=== PATIENT | male | born 1940 | race Caucasian/White ===

== ENCOUNTER → 2017-05-24 11:14 | Outpatient (CLI) | payer MEDICARE, BC, SELFPAY ==
--- NOTE | 2017-05-24 11:24 | US_ITS ---
STUDY: SUPERFICIAL ULTRASOUND - RIGHT ABDOMINAL WALL REASON FOR EXAM: Male, 76 years old. Pain, bruising TECHNIQUE: A superficial ultrasound was performed with real-time and static gentile-scale imaging. COMPARISON: None. FINDINGS: There are no cystic or solid masses seen in the area of concern. There are no fluid collections. US/Abdomen Limited IMPRESSION: Negative study. Electronically Signed: Jo Ann Wolfe MD at 16:06 EST Tel Direct: [phone], Service support ,
== END ==
PROVIDERS: Family Provider Family Medicine Geriatric Medicine; PCP Family Medicine Geriatric Medicine; Visit Provider Family Medicine Geriatric Medicine
DX: R10.9 Unspecified abdominal pain (principal)
CPT/HCPCS: 76705

== ENCOUNTER 2017-05-27 00:12 | Emergency (ER) | payer MEDICARE, BC, SELFPAY ==
[2017-05-27 00:13] VITALS: BP 205/112; PULSE 65; RESP 22; TEMP 36.6; O2SAT 96; BMI 48.4
--- NOTE | 2017-05-27 01:21 | ED.VISSUMM ---
- ER Visit Summary Date of Service: 05/27/17 Chief Complaint: [] Edema of the left elbow History of Present Illness: The patient is a 76 M [] planing of seepage/swelling of the left elbow without obvious injury. Patient has a significant history of congestive heart failure and renal failure. His son at the bedside reports he had a left upper extremity fistula placed May 11 to initiate dialysis. He has not yet had his first dialysis. Patient denies pain with range of motion of the elbow. Denies skin breakdown or injury. Denies increase in physical activity. Does report just a small area of clear serous drainage. Denies fevers. No other complaints at this time. History is limited by the patient's dementia. Son reports that the patient is not compliant taking his Lasix. Physical Examination: [] Elderly morbidly obese male in no acute distress. Afebrile, blood pressure elevated at 205/113. Remainder of vitals are within normal limits. Examination of the elbow shows clear serous drainage from a small area at the distal elbow. No signs of erythema, infection, cellulitis. There is mild swelling in comparison to the opposite elbow. There is no pain with range of motion testing. Lower extremity exam shows significant 4+ pitting edema symmetric. Test Results: [] CBC normal. Electrolytes normal with exception of a BUN/creatinine of 33 and 3.02, respectively. This is consistent with the patient's history of end-stage renal disease. ESR: 31. 3 view left elbow x-ray negative. Emergency Department Course and Treatment: [] In light of the patient's negative lab workup and negative x-rays and the fact that the patient is already on a low-dose antibiotic (Keflex), do not feel any further intervention is warranted. I inserted the nurse to provide a clean sterile dressing and I encouraged the patient to take his Lasix as prescribed. I encourage PCP follow-up within 3 days. Return if symptoms worsen or fever or redness develops. Treatment Plan: [] Follow-up with PCP. Disposition: [] Discharge, stable. Impression: [] Left elbow serous drainage History of end-stage renal disease History of congestive heart failure This note was generated with valuklikation software. It may contain incorrect words, spelling, and punctuation that were not noted in review of the chart prior to signing ED Disposition - Plan for ED Patient: Chief Complaint: Edema Referrals: Justice Valenzuela Chi, MD [Primary Care Provider] -
--- NOTE | 2017-05-27 01:24 | ED.DCSUM_ITS ---
- ER Visit Summary Date of Service: 05/27/17 Chief Complaint: [] Edema of the left elbow History of Present Illness: The patient is a 76 M [] planing of seepage/ swelling of the left elbow without obvious injury. Patient has a significant history of congestive heart failure and renal failure. His son at the bedside reports he had a left upper extremity fistula placed May 11 to initiate dialysis. He has not yet had his first dialysis. Patient denies pain with range of motion of the elbow. Denies skin breakdown or injury. Denies increase in physical activity. Does report just a small area of clear serous drainage. Denies fevers. No other complaints at this time. History is limited by the patient's dementia. Son reports that the patient is not compliant taking his Lasix. Physical Examination: [] Elderly morbidly obese male in no acute distress. Afebrile, blood pressure elevated at 205/113. Remainder of vitals are within normal limits. Examination of the elbow shows clear serous drainage from a small area at the distal elbow. No signs of erythema, infection, cellulitis. There is mild swelling in comparison to the opposite elbow. There is no pain with range of motion testing. Lower extremity exam shows significant 4+ pitting edema symmetric. Test Results: [] CBC normal. Electrolytes normal with exception of a BUN/ creatinine of 33 and 3.02, respectively. This is consistent with the patient's history of end-stage renal disease. ESR: 31. 3 view left elbow x-ray negative. Emergency Department Course and Treatment: [] In light of the patient's negative lab workup and negative x-rays and the fact that the patient is already on a low-dose antibiotic (Keflex), do not feel any further intervention is warranted. I inserted the nurse to provide a clean sterile dressing and I encouraged the patient to take his Lasix as prescribed. I encourage PCP follow-up within 3 days. Return if symptoms worsen or fever or redness develops. Treatment Plan: [] Follow-up with PCP. Disposition: [] Discharge, stable. Impression: [] Left elbow serous drainage History of end-stage renal disease History of congestive heart failure This note was generated with Searcheezeation software. It may contain incorrect words, spelling, and punctuation that were not noted in review of the chart prior to signing ED Disposition - Plan for ED Patient: Chief Complaint: Edema Referrals: Justice Valenzuela Chi, MD [Primary Care Provider] -
--- NOTE | 2017-05-27 01:28 | RAD_ITS ---
STUDY: X-RAY - LEFT ELBOW REASON FOR EXAM: Male, 76 years old. Fall TECHNIQUE: 3 view(s) of the elbow. COMPARISON: None. FINDINGS: Radial head osteophyte. Ulnotrochlear osteoarthritis. Soft tissue swelling. Surgical clips. Calcific tendinitis involving the common flexor tendon. RAD/Elbow min 3 Views IMPRESSION: No acute osseous injury is evident. Electronically Signed: Gerber Dietz MD at 2:03 EST Tel , Service support ,
[2017-05-27 01:36] LABS: Erythrocyte Sedimentation Rate 31 mm/hr (0-20)
[2017-05-27 01:38] LABS: Absolute Neutrophil Count 5.2 X10^3/uL (2.0-7.7); Basophil# 0.02 X10^3/uL; Basophil% 0.3 % (0-1); Eosinophil# 0.15 X10^3/uL; Eosinophils% 2.1 % (0-5); Hematocrit 33.1 % (40-54); Hemoglobin 10.7 g/dl (13.0-16.5); Lymphocyte % 15.4 % (19-41); Mean Corp Hgb Conc 32.3 g/gl (32-36); Mean Corpuscular Hgb 28.7 pg (27.0-32.0); Mean Corpuscular Volume 88.7 fL (80-94); Mean Platelet Vol. 10.4 fl (6.2-12.0); Monocyte# 0.69 X10^3/uL; Monocyte% 9.7 % (0-10); Neutrophil # 5.16 X10^3/uL (2.7-7.7); Neutrophil % 72.4 % (47-70); Platelet Count 241 K/mm3 (150-450); RBC Distribution Width CV 15.2 % (11.6-14.6); RBC Distribution Width SD 49.3 fl (35.1-43.9); Red Blood Count 3.73 M/mm3 (4.6-6.2); White Blood Count 7.1 K/mm3 (4.4-11.0)
[2017-05-27 01:39] LABS: POSITIVE COUNT NO; POSITIVE DIFFERENTIAL NO; POSITIVE MORPHOLOGY NO
[2017-05-27 01:41] LABS: Anion Gap 10 (5-15); BUN 33 mg/dL (7-18); BUN/Creat Ratio 10.9 RATIO (10-20); Chloride 111 mmol/L (98-107); Creatinine, Serum 3.02 mg/dL (0.70-1.30); EST Glomerular Filtration Rate 21 mL/min (>60); Est Glom Filt Rate - Afr Amer 26 mL/min (>60); Estimated Creatinine Clearance 18.19 ml/min; Glucose 126 mg/dL (70-110); Potassium 3.8 mmol/L (3.5-5.1); Sodium Level 144 mmol/L (136-145)
[2017-05-27 02:11] VITALS: PULSE 67; RESP 20; O2SAT 95
[2017-05-27 02:17] VITALS: BP 187/94; O2SAT 95
--- NOTE | 2017-05-27 02:36 | ED.DEP ---
ED Disposition - Plan for ED Patient: Disposition: Home or Assisted Living Chief Complaint: Edema Diagnosis: Chronic renal failure, stage 3 (moderate) Instructions: ED CHF General, Wound Care Referrals: Justice Valenzuela Chi, MD [Primary Care Provider] - Additional Instructions: See your PCP within 3 days.
[2017-05-27 03:25] VITALS: BP 206/95
== END 2017-05-27 03:26 | disposition home or self-care (01) ==
PROVIDERS: Emergency Provider Emergency Medicine; Family Provider Family Medicine Geriatric Medicine; PCP Family Medicine Geriatric Medicine
DX: M25.422 Effusion, left elbow (principal); E66.01 Morbid (severe) obesity due to excess calories; I13.2 Hypertensive heart and chronic kidney disease with heart failure and with stage 5 chronic kidney disease, or end stage renal disease; N18.6 End stage renal disease; I25.10 Atherosclerotic heart disease of native coronary artery without angina pectoris; M10.9 Gout, unspecified; I50.9 Heart failure, unspecified
CPT/HCPCS: 73080; 80048; 85025; 85652; 99282; A4216

== ENCOUNTER → 2017-05-31 09:07 | Outpatient (CLI) | payer MEDICARE, BC, SELFPAY ==
[2017-05-31 13:23] LABS: Absolute Lymphocyte Count 1.39 X10^3/ul (0.83-4.51); Basophil# 0.02 X10^3/uL; Basophil% 0.2 % (0-1); Eosinophil# 0.22 X10^3/uL; Eosinophils% 2.3 % (0-5); Hematocrit 36.2 % (40-54); Hemoglobin 11.6 g/dl (13.0-16.5); Lymphocyte # 1.39 X10^3/ul (4.0); Lymphocyte % 14.6 % (19-41); Mean Corpuscular Hgb 28.6 pg (27.0-32.0); Mean Corpuscular Volume 89.2 fL (80-94); Mean Platelet Vol. 10.5 fl (6.2-12.0); Monocyte# 0.86 X10^3/uL; Neutrophil # 7.03 X10^3/uL (2.7-7.7); Neutrophil % 73.7 % (47-70); Platelet Count 280 K/mm3 (150-450); RBC Distribution Width CV 14.9 % (11.6-14.6); RBC Distribution Width SD 48.8 fl (35.1-43.9); Red Blood Count 4.06 M/mm3 (4.6-6.2); White Blood Count 9.5 K/mm3 (4.4-11.0)
[2017-05-31 13:27] LABS: POSITIVE COUNT NO; POSITIVE DIFFERENTIAL NO; POSITIVE MORPHOLOGY NO
[2017-05-31 13:34] LABS: Anion Gap 11 (5-15); BUN 38 mg/dL (7-18); BUN/Creat Ratio 12.8 RATIO (10-20); Calcium,Total 8.1 mg/dL (8.5-10.1); Chloride 108 mmol/L (98-107); Creatinine, Serum 2.98 mg/dL (0.70-1.30); EST Glomerular Filtration Rate 22 mL/min (>60); Est Glom Filt Rate - Afr Amer 26 mL/min (>60); Glucose 110 mg/dL (70-110); Potassium 3.9 mmol/L (3.5-5.1); Sodium Level 143 mmol/L (136-145)
[2017-05-31 13:42] LABS: BNP,B-Type NATRIURETIC PEPTIDE 301.4 pg/mL (0-100)
== END ==
PROVIDERS: Family Provider Family Medicine Geriatric Medicine; PCP Family Medicine Geriatric Medicine; Visit Provider Family Medicine Geriatric Medicine
DX: N18.3 Chronic kidney disease, stage 3 (moderate) (principal); R06.02 Shortness of breath; I50.9 Heart failure, unspecified
CPT/HCPCS: 36415; 80048; 83880; 85025

== ENCOUNTER → 2017-05-31 13:11 | Outpatient (CLI) | payer MEDICARE, BC, SELFPAY ==
--- NOTE | 2017-05-31 13:15 | VDLE_ITS ---
Reason For Study: edema RIGHT LEFT GSV is normal. GSV is normal. CFV is compressible, spontaneous, phasic, CFV is compressible, spontaneous, phasic, competent and demonstrates normal competent, and demonstrates normal augmentation. augmentation. FV is compressible, spontaneous, phasic, FV is compressible, spontaneous, phasic, competent and demonstrates normal competent and demonstrates normal augmentation. augmentation. POP V is compressible, spontaneous, phasic, POP V is compressible, spontaneous, phasic, competent and demonstrates normal competent and demonstrates normal augmentation. augmentation. T/P Trunk is compressible. T/P Trunk is compressible. PTV is compressible. PTV is compressible. RT PerV is compressible. LT PerV is compressible. Procedure Exam performed in department. The exam was of fair technical quality due to edema. Limited views of calf veins due to edema. A preliminary report was called and/or faxed to Dr. Valenzuela. Interpretation Summary Deep veins of the lower extremities are bilaterally patent and compressible segmentally. There is no evidence of deep vein thrombosis on either side. Valvular competence appears intact within the proximal deep venous systems bilaterally. The greater saphenous veins appear bilaterally patent and compressible segmentally. Ordering Physician: Justice Valenzuela Performed By: Obi Valentin RVT
== END ==
PROVIDERS: Family Provider Family Medicine Geriatric Medicine; PCP Family Medicine Geriatric Medicine; Visit Provider Family Medicine Geriatric Medicine
DX: R60.0 Localized edema (principal)
CPT/HCPCS: 36415; 80048; 83880; 85025; 93970

== ENCOUNTER → 2017-06-07 17:00 | Outpatient (CLI) | payer MEDICARE, BC, SELFPAY ==
--- NOTE | 2017-06-07 17:16 | CT_ITS ---
STUDY: CT BRAIN WITHOUT CONTRAST REASON FOR EXAM: Male, 76 years old. Delirium. Confusion. RADIATION DOSAGE (If Supplied By Facility): CTDIvol = ( 60.81 ) mGy, DLP = ( 1135.50 ) mGycm TECHNIQUE: Transaxial CT imaging of the brain was performed without administration of intravenous contrast material. Individualized dose optimization techniques were used for this CT. COMPARISON: None. FINDINGS: Normal soft tissue structures. Normal calvarium. There is disproportionate enlargement of the lateral and third ventricles, as compared to the extra-axial spaces. The findings suggest normal pressure hydrocephalus (NPH). There are areas of decreased attenuation within the white matter tracts of the supratentorial brain, consistent with microvascular disease changes. Normal basal ganglia and thalami. Normal brainstem. Normal cerebellum. There is no intracranial hemorrhage. There are no findings of an acute ischemic infarction. Normal visualized paranasal sinuses. CT/Brain/Head without Contrast IMPRESSION: Chronic involutional changes without evidence of acute intracranial or calvarial abnormality. Electronically Signed: Danie Vergara DO at 17:42 EST Tel [phone], Service support ,
--- NOTE | 2017-06-07 17:20 | RAD_ITS ---
STUDY: X-RAY - ABDOMEN/PELVIS REASON FOR EXAM: Male, 76 years old. Diarrhea TECHNIQUE: For AP images of the abdomen were obtained. COMPARISON: None. FINDINGS: Normal visualized lung bases. There is an unremarkable bowel gas pattern. There is no demonstrated free abdominal air. The visualized liver, spleen and kidneys are grossly normal in size and morphology. Normal soft tissue structures. There are diffuse degenerative changes of the visualized lumbar spine. There are pedicle screws noted within the lower lumbar spine. Bilateral hip arthroplasties are in place. RAD/Abd Inc Decub and/or Erect IMPRESSION: Nonspecific bowel gas pattern. Electronically Signed: Jane Strickland MD at 18:12 EST Tel , Service support ,
--- NOTE | 2017-06-07 17:30 | RAD_ITS ---
STUDY: X-RAY CHEST REASON FOR EXAM: Male, 76 years old. Delirium TECHNIQUE: PA and lateral views of the chest. COMPARISON: November 29, 2016. FINDINGS: There are ill-defined opacities within the mid and lower left lung and right lung base. There is perihilar fullness associated with indistinct pulmonary bronchovasculature. Normal size heart. There is atherosclerotic calcification of the aortic arch with tortuosity. There are diffuse degenerative changes of the visualized thoracic spine. Normal visualized ribs, clavicles, and shoulders. There is no demonstrated abnormality of the visualized soft tissue structures of the upper abdomen. RAD/Chest PA and Lateral IMPRESSION: Bilateral ill-defined opacities may reflect some combination of edema, pneumonia and/or atelectasis. Electronically Signed: Jane Strickland MD at 18:17 EST Tel , Service support ,
[2017-06-07 18:13] LABS: Absolute Lymphocyte Count 1.04 X10^3/ul (0.83-4.51); Absolute Neutrophil Count 6.8 X10^3/uL (2.0-7.7); Basophil# 0.02 X10^3/uL; Basophil% 0.2 % (0-1); Eosinophil# 0.16 X10^3/uL; Eosinophils% 1.8 % (0-5); Hematocrit 34.1 % (40-54); Hemoglobin 10.7 g/dl (13.0-16.5); Lymphocyte # 1.04 X10^3/ul (4.0); Lymphocyte % 11.8 % (19-41); Mean Corp Hgb Conc 31.4 g/gl (32-36); Mean Corpuscular Hgb 28.2 pg (27.0-32.0); Mean Corpuscular Volume 89.7 fL (80-94); Mean Platelet Vol. 10.2 fl (6.2-12.0); Monocyte# 0.81 X10^3/uL; Monocyte% 9.2 % (0-10); Neutrophil # 6.81 X10^3/uL (2.7-7.7); Neutrophil % 76.9 % (47-70); Platelet Count 281 K/mm3 (150-450); RBC Distribution Width CV 14.3 % (11.6-14.6); White Blood Count 8.9 K/mm3 (4.4-11.0)
[2017-06-07 18:17] LABS: POSITIVE COUNT NO; POSITIVE DIFFERENTIAL NO; POSITIVE MORPHOLOGY NO
[2017-06-07 18:40] LABS: D-Dimer Quantitative (DVT/PE) 1.38 FEU/ug/m (0.27-0.49)
[2017-06-07 19:12] LABS: ALB/GLOB Ratio 0.8 RATIO (0.9-2.4); AST(SGOT) 12 U/L (15-37); Alanine Aminotransfer ALT/SGPT 15 U/L (16-61); Albumin, Serum 2.9 g/dL (3.2-5.0); Alkaline Phosphatase 68 U/L (45-117); Anion Gap 9 (5-15); BUN 39 mg/dL (7-18); BUN/Creat Ratio 11.4 RATIO (10-20); Calcium,Total 8.3 mg/dL (8.5-10.1); Chloride 103 mmol/L (98-107); Creatinine, Serum 3.42 mg/dL (0.70-1.30); EST Glomerular Filtration Rate 19 mL/min (>60); Est Glom Filt Rate - Afr Amer 22 mL/min (>60); Globulin 3.5 g/dL (2.2-4.2); Glucose 141 mg/dL (74-106); Magnesium 2.4 mg/dL (1.6-2.6); Phosphorus 3.8 mg/dL (2.5-4.9); Potassium 3.9 mmol/L (3.5-5.1); Protein, Total 6.4 g/dL (6.4-8.2); Sodium Level 143 mmol/L (136-145); Thyroid Stim Hormone (TSH) 2.14 uIU/mL (0.358-3.74)
[2017-06-07 20:26] LABS: BNP,B-Type NATRIURETIC PEPTIDE 254.3 pg/mL (0-100)
== END ==
PROVIDERS: Family Provider Family Medicine Geriatric Medicine; PCP Family Medicine Geriatric Medicine; Visit Provider Family Medicine Geriatric Medicine
DX: F05 Delirium due to known physiological condition (principal); R19.7 Diarrhea, unspecified; R06.02 Shortness of breath; N39.0 Urinary tract infection, site not specified
CPT/HCPCS: 70450; 71046; 74019; 80053; 83735; 83880; 84100; 84443; 85025; 85379; 87077; 87086; 87088; 87186

== ENCOUNTER → 2017-06-11 16:22 | Outpatient (CLI) | payer MEDICARE, BC, SELFPAY ==
[2017-06-11 17:31] LABS: Absolute Lymphocyte Count 1.36 X10^3/ul (0.83-4.51); Absolute Neutrophil Count 3.9 X10^3/uL (2.0-7.7); Basophil# 0.02 X10^3/uL; Basophil% 0.3 % (0-1); Eosinophil# 0.05 X10^3/uL; Eosinophils% 0.8 % (0-5); Hematocrit 35.5 % (40-54); Hemoglobin 11.4 g/dl (13.0-16.5); Lymphocyte # 1.36 X10^3/ul (4.0); Lymphocyte % 22.6 % (19-41); Mean Corp Hgb Conc 32.1 g/gl (32-36); Mean Corpuscular Hgb 28.3 pg (27.0-32.0); Mean Corpuscular Volume 88.1 fL (80-94); Mean Platelet Vol. 10.7 fl (6.2-12.0); Monocyte% 11.6 % (0-10); Neutrophil # 3.87 X10^3/uL (2.7-7.7); Neutrophil % 64.4 % (47-70); Platelet Count 322 K/mm3 (150-450); RBC Distribution Width SD 44.5 fl (35.1-43.9); Red Blood Count 4.03 M/mm3 (4.6-6.2)
[2017-06-11 17:39] LABS: POSITIVE COUNT NO; POSITIVE DIFFERENTIAL NO; POSITIVE MORPHOLOGY NO
[2017-06-11 18:29] LABS: ALB/GLOB Ratio 0.8 RATIO (0.9-2.4); AST(SGOT) 17 U/L (15-37); Alanine Aminotransfer ALT/SGPT 22 U/L (16-61); Alkaline Phosphatase 77 U/L (45-117); Anion Gap 10 (5-15); BUN 35 mg/dL (7-18); BUN/Creat Ratio 11.4 RATIO (10-20); Chloride 106 mmol/L (98-107); Creatinine, Serum 3.08 mg/dL (0.70-1.30); EST Glomerular Filtration Rate 21 mL/min (>60); Est Glom Filt Rate - Afr Amer 25 mL/min (>60); Globulin 3.7 g/dL (2.2-4.2); Glucose 92 mg/dL (74-106); Potassium 3.2 mmol/L (3.5-5.1); Protein, Total 6.7 g/dL (6.4-8.2); Sodium Level 143 mmol/L (136-145); Thyroid Stim Hormone (TSH) 1.63 uIU/mL (0.358-3.74); Uric Acid 3.7 mg/dL (3.5-7.2)
== END ==
PROVIDERS: Family Provider Family Medicine Geriatric Medicine; PCP Family Medicine Geriatric Medicine; Visit Provider Family Medicine Geriatric Medicine
DX: I10 Essential (primary) hypertension (principal); M10.9 Gout, unspecified
CPT/HCPCS: 36415; 80053; 84443; 84550; 85025

== ENCOUNTER → 2017-06-14 11:59 | Outpatient (CLI) | payer MEDICARE, BC, SELFPAY | PROVIDERS: Family Provider Family Medicine Geriatric Medicine; PCP Family Medicine Geriatric Medicine; Visit Provider Family Medicine Geriatric Medicine | DX: R69 Illness, unspecified (principal) | CPT/HCPCS: 87633 ==

== ENCOUNTER → 2017-06-18 10:33 | Outpatient (CLI) | payer MEDICARE, BC, SELFPAY ==
[2017-06-18 11:51] LABS: Anion Gap 7 (5-15); BUN 33 mg/dL (7-18); BUN/Creat Ratio 11.4 RATIO (10-20); Calcium,Total 7.7 mg/dL (8.5-10.1); Chloride 105 mmol/L (98-107); EST Glomerular Filtration Rate 22 mL/min (>60); Est Glom Filt Rate - Afr Amer 27 mL/min (>60); Glucose 145 mg/dL (74-106); Potassium 3.5 mmol/L (3.5-5.1); Sodium Level 142 mmol/L (136-145)
== END ==
PROVIDERS: Family Provider Family Medicine Geriatric Medicine; PCP Family Medicine Geriatric Medicine; Visit Provider Family Medicine Geriatric Medicine
DX: N17.9 Acute kidney failure, unspecified (principal)
CPT/HCPCS: 36415; 80048

== ENCOUNTER → 2017-06-25 10:31 | Outpatient (CLI) | payer MEDICARE, BC, SELFPAY ==
--- NOTE | 2017-06-25 10:37 | RAD_ITS ---
STUDY: X-RAY - UNILATERAL RIBS ( RIGHT ) WITH CHEST REASON FOR EXAM: Male, 76 years old. Fall. Pain. TECHNIQUE - RIBS: 6 view(s) of the ribs. TECHNIQUE - CHEST: Single frontal view of the chest. COMPARISON: 06/07/2017, 07/14/16. FINDINGS - RIBS: Normal visualized ribs without a demonstrated fracture. FINDINGS - CHEST: Normal lung volumes. Stable nodular areas of scarring and/or calcified granulomas in both upper lobes. No infiltrates. No effusions. Normal size heart. Normal mediastinum and iftikhar. Normal visualized pulmonary arteries. There is atherosclerotic tortuosity of the aortic arch and descending thoracic aorta. There are diffuse degenerative changes of the visualized thoracic spine. Normal visualized ribs, clavicles, and shoulders. There is no demonstrated abnormality of the visualized soft tissue structures of the upper abdomen. RAD/Ribs Uni Min 3V w/PA Chest IMPRESSION: RIBS: Normal x-ray examination of the ribs. CHEST: No acute chest disease. Electronically Signed: Seng Verde MD at 23:55 EST , Service support ,
== END ==
PROVIDERS: Family Provider Family Medicine Geriatric Medicine; PCP Family Medicine Geriatric Medicine; Visit Provider Family Medicine Geriatric Medicine
DX: R07.89 Other chest pain (principal)
CPT/HCPCS: 71101

== ENCOUNTER → 2017-06-28 16:19 | Outpatient (CLI) | payer MEDICARE, BC, SELFPAY ==
[2017-06-28 17:14] LABS: Absolute Neutrophil Count 8.1 X10^3/uL (2.0-7.7); Basophil# 0.02 X10^3/uL; Basophil% 0.2 % (0-1); Eosinophil# 0.22 X10^3/uL; Eosinophils% 2.1 % (0-5); Hematocrit 35.4 % (40-54); Hemoglobin 11.5 g/dl (13.0-16.5); Lymphocyte % 13.2 % (19-41); Mean Corp Hgb Conc 32.5 g/gl (32-36); Mean Corpuscular Hgb 29.1 pg (27.0-32.0); Mean Corpuscular Volume 89.6 fL (80-94); Mean Platelet Vol. 10.9 fl (6.2-12.0); Monocyte# 0.87 X10^3/uL; Monocyte% 8.2 % (0-10); Neutrophil # 8.09 X10^3/uL (2.7-7.7); Neutrophil % 76.1 % (47-70); Platelet Count 241 K/mm3 (150-450); RBC Distribution Width CV 14.5 % (11.6-14.6); RBC Distribution Width SD 46.2 fl (35.1-43.9); Red Blood Count 3.95 M/mm3 (4.6-6.2); White Blood Count 10.6 K/mm3 (4.4-11.0)
[2017-06-28 17:15] LABS: POSITIVE COUNT NO; POSITIVE DIFFERENTIAL NO; POSITIVE MORPHOLOGY NO
--- NOTE | 2017-06-28 17:20 | RAD_ITS ---
STUDY: X-RAY - THORACIC SPINE REASON FOR EXAM: Male, 76 years old. Mid back pain. TECHNIQUE: 3 view(s) of the thoracic spine were obtained. COMPARISON: Chest, June 07, 2017. FINDINGS: Normal kyphosis of the thoracic spine. There is no substantial scoliosis. There is demineralization of the thoracic spine with endplate spondylosis. There is multilevel disc space narrowing of the thoracic spine. There is no evidence of acute fracture or loss of vertebral axial height. The soft tissue structures are unremarkable. RAD/Thoracic Spine 3 Views IMPRESSION: Mild degenerative changes of the thoracic spine without acute abnormality or interval change. Electronically Signed: Danie Vergara DO at 18:14 EST Tel [phone], Service support ,
[2017-06-28 17:53] LABS: Anion Gap 9 (5-15); BUN 33 mg/dL (7-18); BUN/Creat Ratio 11.1 RATIO (10-20); Calcium,Total 8.2 mg/dL (8.5-10.1); Chloride 108 mmol/L (98-107); Creatinine, Serum 2.97 mg/dL (0.70-1.30); EST Glomerular Filtration Rate 22 mL/min (>60); Est Glom Filt Rate - Afr Amer 26 mL/min (>60); Glucose 107 mg/dL (74-106); Potassium 4.9 mmol/L (3.5-5.1); Sodium Level 141 mmol/L (136-145)
== END ==
PROVIDERS: Family Provider Family Medicine Geriatric Medicine; PCP Family Medicine Geriatric Medicine; Visit Provider Family Medicine Geriatric Medicine
DX: N18.4 Chronic kidney disease, stage 4 (severe) (principal); R19.7 Diarrhea, unspecified; M54.6 Pain in thoracic spine
CPT/HCPCS: 36415; 72072; 80048; 85025

== ENCOUNTER → 2017-06-29 10:14 | Outpatient (CLI) | payer MEDICARE, BC, SELFPAY ==
--- NOTE | 2017-06-29 10:25 | VDUE_ITS ---
Reason For Study: EDEMA Right Proximal Left Proximal Right jugular vein is spontaneous, widely Left jugular vein is spontaneous, widely patent, phasic, with no intraluminal patent, phasic, with no intraluminal echogenicity noted. echogenicity noted. Right subclavian vein is spontaneous, widely Left subclavian vein is spontaneous, widely patent, phasic, with no intraluminal patent, phasic, with no intraluminal echogenicity noted. echogenicity noted. Right Lower Arm Left Arm Right radial vein is compressible. Left axillary vein is spontaneous, patent, Right ulnar vein is compressible. phasic, competent, compressible and Right Arm demonstrates augmentation. Right axillary vein is spontaneous, patent, Left brachial vein is compressible. phasic, competent, compressible and Left cephalic vein is compressible. demonstrates augmentation. Left basilic vein is compressible. Right brachial vein is compressible. Left Lower Arm Right cephalic vein is compressible. Left radial vein is compressible. Right basilic vein is compressible. Left ulnar vein is compressible. < Interpretation Summary Deep veins of the upper extremities are bilaterally patent and compressible segmentally. There is no evidence of deep vein thrombosis on either side. The superficial veins of the upper extremities, the basilic and cephalic veins, are patent and compressible bilaterally. There is no evidence of upper extremity superficial thrombophlebitis on either side involving the veins imaged. Ordering Physician: Justice Valenzuela Referring Physician: Justice Valenzuela Chi Performed By: Poly Mcdonough, MAYELA, RVT
== END ==
PROVIDERS: Family Provider Family Medicine Geriatric Medicine; PCP Family Medicine Geriatric Medicine; Visit Provider Family Medicine Geriatric Medicine
DX: R60.0 Localized edema (principal)
CPT/HCPCS: 93970

== ENCOUNTER → 2017-07-24 14:08 | Outpatient (CLI) | payer MEDICARE, BC, SELFPAY | PROVIDERS: Family Provider Family Medicine Geriatric Medicine; PCP Family Medicine Geriatric Medicine; Visit Provider Family Medicine Geriatric Medicine | DX: R68.83 Chills (without fever) (principal) | CPT/HCPCS: 87633 ==

== ENCOUNTER → 2017-07-27 09:35 | Day surgery (SDC) | payer MEDICARE, BC, SELFPAY ==
[2017-07-16 14:42] LABS: Hematocrit 34.8 % (40-54); Mean Corp Hgb Conc 31.6 g/gl (32-36); Mean Corpuscular Hgb 28.4 pg (27.0-32.0); Mean Corpuscular Volume 89.7 fL (80-94); Mean Platelet Vol. 10.7 fl (6.2-12.0); Platelet Count 234 K/mm3 (150-450); RBC Distribution Width CV 14.3 % (11.6-14.6); RBC Distribution Width SD 46.4 fl (35.1-43.9); Red Blood Count 3.88 M/mm3 (4.6-6.2); White Blood Count 7.7 K/mm3 (4.4-11.0)
[2017-07-16 14:43] LABS: Scan Indicated on CBC? Y/N NO
[2017-07-16 15:03] LABS: Anion Gap 8 (5-15); BUN 40 mg/dL (7-18); BUN/Creat Ratio 10.8 RATIO (10-20); Calcium,Total 7.9 mg/dL (8.5-10.1); Chloride 104 mmol/L (98-107); EST Glomerular Filtration Rate 17 mL/min (>60); Est Glom Filt Rate - Afr Amer 21 mL/min (>60); Glucose 155 mg/dL (74-106); Potassium 3.2 mmol/L (3.5-5.1); Sodium Level 142 mmol/L (136-145)
[2017-07-26 11:18] VITALS: BMI 47.0
--- NOTE | 2017-07-27 12:14 | OP.PCM_ITS ---
Problem List (1) 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 76-year-old gentleman was taken to the special procedures lab. Was placed on the table. The left upper extremity sterilely prepped and draped. He received 0.5 mg Versed as sedation. He has some narcotic allergy. Under ultrasound guidance 2% lidocaine was instilled in the distal upper arm and then using a micropuncture needle was able to get retrograde access to the left upper arm cephalic vein. I was able to advance the micropuncture wire then up 6 Argentine short sheath dilator. Using then a 4 Argentine angled glide cath and an 035 angled Glidewire and gained access to the radial artery proximal to the anastomosis. I advanced a 4 Argentine angled glide cath. Using carbon dioxide obtained a fistulogram of the forearm. This demonstrated an area of stenosis within the first 4 cm of the anastomosis and then also closer to the antecubital space. I placed a 5 x 80 mm ever cross balloon and perform balloon angioplasty of the arterial anastomosis and the entire length of the fistula. Inflation times for 2 minutes for 18 moises of pressure. Subsequently I removed the balloon reinserted the 4 Argentine angled glide cath reobtained official gram of the forearm now demonstrating improved diameter and flow. I completed carbon dioxide images of the left upper arm and chest area. The sheath was removed. U suture of 4-0 nylon was placed. Hemostasis nicely intact. There was a good pulse, thrill, bruit at the completion without apparent complication. Blood loss was minimal. Images demonstrate a transposed left forearm cephalic vein radial artery arterial venous fistula with moderate stenosis within the first 3-4 cm and a degree of outflow stenosis in the proximal forearm. Subsequent to the angioplasty that has resolved. There is good upper arm cephalic and basilic vein outflow and good central venous outflow. Impression Successfully treated balloon maturation angioplasty left forearm transposed cephalic vein to radial artery arteriovenous hemodialysis fistula. Liam Brown M.D., F.A.C.S.
== END ==
PROVIDERS: Family Provider Family Medicine Geriatric Medicine; PCP Family Medicine Geriatric Medicine; Visit Provider Surgery
DX: T82.898A Other specified complication of vascular prosthetic devices, implants and grafts, initial encounter (principal); I25.10 Atherosclerotic heart disease of native coronary artery without angina pectoris; K21.9 Gastro-esophageal reflux disease without esophagitis; E78.5 Hyperlipidemia, unspecified; N18.3 Chronic kidney disease, stage 3 (moderate); I12.9 Hypertensive chronic kidney disease with stage 1 through stage 4 chronic kidney disease, or unspecified chronic kidney disease; Z87.891 Personal history of nicotine dependence
CPT/HCPCS: 36415; 36902; 76937; 80048; 85027; 99152; 99153; Q9967; C1769

== ENCOUNTER → 2017-08-27 15:11 | Outpatient (CLI) | payer MEDICARE, BC, SELFPAY ==
[2017-08-27 18:03] LABS: Anion Gap 8 (5-15); BUN 41 mg/dL (7-18); BUN/Creat Ratio 12.3 RATIO (10-20); Calcium,Total 8.4 mg/dL (8.5-10.1); Chloride 105 mmol/L (98-107); Creatinine, Serum 3.32 mg/dL (0.70-1.30); EST Glomerular Filtration Rate 19 mL/min (>60); Est Glom Filt Rate - Afr Amer 23 mL/min (>60); Glucose 97 mg/dL (74-106); Potassium 3.6 mmol/L (3.5-5.1); Sodium Level 139 mmol/L (136-145)
[2017-08-27 18:05] LABS: Absolute Lymphocyte Count 1.33 X10^3/ul (0.83-4.51); Absolute Neutrophil Count 5.7 X10^3/uL (2.0-7.7); Basophil# 0.03 X10^3/uL; Basophil% 0.4 % (0-1); Eosinophil# 0.21 X10^3/uL; Eosinophils% 2.7 % (0-5); Hematocrit 34.6 % (40-54); Hemoglobin 10.9 g/dl (13.0-16.5); Lymphocyte # 1.33 X10^3/ul (4.0); Lymphocyte % 16.8 % (19-41); Mean Corp Hgb Conc 31.5 g/gl (32-36); Mean Corpuscular Volume 88.9 fL (80-94); Mean Platelet Vol. 10.1 fl (6.2-12.0); Monocyte# 0.63 X10^3/uL; Neutrophil # 5.71 X10^3/uL (2.7-7.7); Platelet Count 243 K/mm3 (150-450); RBC Distribution Width CV 14.4 % (11.6-14.6); RBC Distribution Width SD 46.7 fl (35.1-43.9); Red Blood Count 3.89 M/mm3 (4.6-6.2); White Blood Count 7.9 K/mm3 (4.4-11.0)
[2017-08-27 18:18] LABS: POSITIVE COUNT NO; POSITIVE DIFFERENTIAL NO; POSITIVE MORPHOLOGY NO
== END ==
PROVIDERS: Family Provider Family Medicine Geriatric Medicine; PCP Family Medicine Geriatric Medicine; Visit Provider Family Medicine Geriatric Medicine
DX: R60.9 Edema, unspecified (principal)
CPT/HCPCS: 36415; 80048; 85025

== ENCOUNTER → 2017-08-27 15:29 | Outpatient (CLI) | payer MEDICARE, BC, SELFPAY ==
--- NOTE | 2017-08-27 15:40 | RAD_ITS ---
STUDY: X-RAY - ABDOMEN/PELVIS REASON FOR EXAM: Male, 77 years old. Pain TECHNIQUE: 3 frontal views of the abdomen COMPARISON: None. FINDINGS: There is no bowel obstruction. There is air and stool to the level of the rectum. There are degenerative changes noted in the spine. There is fixation hardware spanning L3 and L4. The patient is status post bilateral hip arthroplasty. RAD/Abdomen Single View IMPRESSION: No bowel obstruction. Electronically Signed: Karthikeyan Pacheco, at 16:03 EDT Tel , Service support ,
--- NOTE | 2017-08-27 15:52 | VDLE_ITS ---
Reason For Study: edema RIGHT LEFT GSV is normal. GSV is normal. CFV is compressible, spontaneous, phasic, CFV is compressible, spontaneous, phasic, competent and demonstrates normal competent, and demonstrates normal augmentation. augmentation. FV is compressible, spontaneous, phasic, FV is compressible, spontaneous, phasic, competent and demonstrates normal competent and demonstrates normal augmentation. augmentation. POP V is compressible, spontaneous, phasic, POP V is compressible, spontaneous, phasic, competent and demonstrates normal competent and demonstrates normal augmentation. augmentation. T/P Trunk is compressible. T/P Trunk is compressible. PTV is compressible. PTV is compressible. RT PerV is compressible. Unable to visualize/assess PER V. Procedure Exam performed in department. The exam was diagnostic. The study was technically difficult. A preliminary report was called and/or faxed to DR. Valenzuela @ 4:20 pm @ [phone]. Interpretation Summary Deep veins of the lower extremities are bilaterally patent and compressible segmentally. There is no evidence of deep vein thrombosis on either side. Valvular competence appears intact within the proximal deep venous systems bilaterally. The greater saphenous veins appear bilaterally patent and compressible segmentally. The left peroneal vein was not visualized. Ordering Physician: Justice Valenzuela Referring Physician: Justice Valenzuela Chi Performed By: Amanda Carbajal, RDNURIS, RVT
== END ==
PROVIDERS: Family Provider Family Medicine Geriatric Medicine; PCP Family Medicine Geriatric Medicine; Visit Provider Family Medicine Geriatric Medicine
DX: R60.0 Localized edema (principal); R10.9 Unspecified abdominal pain
CPT/HCPCS: 36415; 74018; 80048; 85025; 93970

== ENCOUNTER → 2017-09-11 13:31 | Outpatient (CLI) | payer MEDICARE, BC, SELFPAY ==
--- NOTE | 2017-09-11 15:36 | RAD_ITS ---
STUDY: X-RAY - PELVIS AND RIGHT HIP REASON FOR EXAM: Hip pain for 6 months. TECHNIQUE: Radiological exam, hip, unilateral, with pelvis when performed; 2 or 3 views. COMPARISON: None. FINDINGS: There are postoperative changes of the lumbar spine. Normal bilateral iliac wings, sacroiliac joints and visualized sacrum. Normal bilateral superior and inferior pubic rami. Normal pubic symphysis. Normal bilateral ischial tuberosities. 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 There is also a left hip arthroplasty. RAD/Hip 2-3 Views with Pelvis IMPRESSION: Right hip arthroplasty with heterotopic ossification. Electronically Signed: Juan Jose Dewitt MD at 16:10 EDT Tel , Service support ,
[2017-09-11 17:41] LABS: Absolute Lymphocyte Count 1.11 X10^3/ul (0.83-4.51); Absolute Neutrophil Count 6.7 X10^3/uL (2.0-7.7); Basophil# 0.05 X10^3/uL; Basophil% 0.6 % (0-1); Eosinophil# 0.14 X10^3/uL; Eosinophils% 1.6 % (0-5); Hematocrit 34.3 % (40-54); Lymphocyte # 1.11 X10^3/ul (4.0); Lymphocyte % 12.5 % (19-41); Mean Corp Hgb Conc 32.1 g/gl (32-36); Mean Corpuscular Hgb 27.9 pg (27.0-32.0); Mean Corpuscular Volume 87.1 fL (80-94); Mean Platelet Vol. 10.6 fl (6.2-12.0); Monocyte# 0.86 X10^3/uL; Monocyte% 9.7 % (0-10); Neutrophil # 6.72 X10^3/uL (2.7-7.7); Neutrophil % 75.4 % (47-70); Platelet Count 254 K/mm3 (150-450); RBC Distribution Width CV 14.2 % (11.6-14.6); RBC Distribution Width SD 45.3 fl (35.1-43.9); Red Blood Count 3.94 M/mm3 (4.6-6.2); White Blood Count 8.9 K/mm3 (4.4-11.0)
[2017-09-11 17:42] LABS: POSITIVE COUNT NO; POSITIVE DIFFERENTIAL NO; POSITIVE MORPHOLOGY NO
[2017-09-11 17:54] LABS: ALB/GLOB Ratio 0.8 RATIO (0.9-2.4); AST(SGOT) 12 U/L (15-37); Alanine Aminotransfer ALT/SGPT 14 U/L (16-61); Alkaline Phosphatase 79 U/L (45-117); Anion Gap 11 (5-15); BUN 44 mg/dL (7-18); BUN/Creat Ratio 12.5 RATIO (10-20); Calcium,Total 8.3 mg/dL (8.5-10.1); Chloride 102 mmol/L (98-107); Creatinine, Serum 3.53 mg/dL (0.70-1.30); EST Glomerular Filtration Rate 18 mL/min (>60); Est Glom Filt Rate - Afr Amer 22 mL/min (>60); Globulin 3.8 g/dL (2.2-4.2); Glucose 98 mg/dL (74-106); Potassium 3.7 mmol/L (3.5-5.1); Protein, Total 6.8 g/dL (6.4-8.2); Sodium Level 139 mmol/L (136-145); Uric Acid 3.8 mg/dL (3.5-7.2)
[2017-09-12 09:21] LABS: PTHIN 182.1 pg/mL (18.4-80.1)
[2017-09-12 09:48] LABS: Vitamin D,25 Hydroxy 16.8 ng/mL (29.95-100.01)
== END ==
LOC: POLAB3 13:33 → RAD 15:34
PROVIDERS: Internal Medicine Nephrology; Family Provider Family Medicine Geriatric Medicine; PCP Family Medicine Geriatric Medicine; Visit Provider Family Medicine Geriatric Medicine
DX: I10 Essential (primary) hypertension (principal); M10.9 Gout, unspecified; E55.9 Vitamin D deficiency, unspecified
CPT/HCPCS: 36415; 73502; 80053; 82306; 83970; 84100; 84443; 84550; 85025

== ENCOUNTER → 2017-09-14 11:48 | Outpatient (CLI) | payer MEDICARE, BC, SELFPAY ==
[2017-09-14 12:28] LABS: 24 Hour Urine Protein 950.6 mg/24HR (<150 MG/24HR); 24HR. UA Prot. Total Volume 1400 mL; Creatinine, Serum 3.32 mg/dL (0.70-1.30); EST Glomerular Filtration Rate 19 mL/min (>60); Est Glom Filt Rate - Afr Amer 23 mL/min (>60); Urine Protein (24 Hour) 67.9 mg/dL (<11.9)
[2017-09-14 12:30] LABS: Creat.Clear Total Volume 1400 mL; Creatinine Clearance 22 ml/min (100-200); Creatinine Serum Creat 3.3 mg/dL (0.8-1.3); Creatinine Urine 75.2 mg/dL (NO RANGE EST.); EST Glomerular Filtration Rate 19 mL/min (>60); Est Glom Filt Rate - Afr Amer 23 mL/min (>60)
== END ==
PROVIDERS: Family Provider Family Medicine Geriatric Medicine; PCP Family Medicine Geriatric Medicine; Visit Provider Internal Medicine Nephrology
DX: N18.4 Chronic kidney disease, stage 4 (severe) (principal); D63.8 Anemia in other chronic diseases classified elsewhere; N25.81 Secondary hyperparathyroidism of renal origin
CPT/HCPCS: 82565; 82575; 84156

== ENCOUNTER 2017-09-20 16:00 | Outpatient (RCR) | payer MEDICARE, BC, SELFPAY ==
--- NOTE | 2017-09-19 11:10 | HP.PTEVAL_ITS ---
Patient's Visit Information ARIANNA GUILLERMO is a 77 year old M referred to Physical Therapy by Justice Valenzuela with a diagnosis of R hip OA, gait difficulty. Date of Evaluation: 09/18/17 Physical Therapist: Barry Roche, PT, - Visit Plan Frequency: 2x /Week Duration: 4 Weeks Plan: Stretching to improve R hip extension. Strengthening to improve R hip abduction and general LE strength. Nustep for general conditioning. Modalities PRN. Hx: B JAREN, R TKA, Lumbar fusion (unkown DOS). - Subjective Subjective: This 77 y/o male ppresents to physical therapy wt lateral hip pain.Pt is a poor historian. Pt reports that he experienced a fall ~6 months ago when he tripped while walking up his concrete steps. R hip pain started after the fall. He is having a good day today, not having any pain. Usually has one good day per week. On average, his R hip pain is located laterally and rates as a 5/10. Irritating factors include ambulating long distances and on uneven ground. Does not know of any easing factors for his pain. Denies any treatment or is taking any medications for this condition. Pt lives with son and in own home. Denies limitations to navigating home. Patient has h/o bilateral THR replacement,TKR right and lumbar surgery fusion.Patient has had PT for [facility]. - Pain Right Hip Pain Intensity (Out of 10): 5 Pain Intensity Range: 10 Comment: average -right lateral pelvis - Objective Posture: forward flexed at hips, R IC superior, GT level. Palpation: TTP R glute med/TFL. Gait: slow samuel, short step lengths, forward flexed, cane in L UE, no hip extension past neutral during stance. ROM: Supine hip flexion: R 87, L 61. Seated L Hip IR 23, ER 15; R hip IR 17, ER 7. Passive R hip extension to neutral. Strength: R hip aBd 3+/5, R hip flexion 4/5. L hip flexion, B knee extension 5/5. - Goals Goal 1:: Pt will be independent with HEP to sustain clinical gains made with therapy. Goal Time Frame: 2-4 Weeks Goal 2:: Pt will demonstrate MMT of 4/5 with R hip abduction to improve pelvic/ hip stability with ambulation. Goal Time Frame: 2-4 Weeks Goal 3:: Pt will demonstrate passive hip extension past neutral to allow for more normalized ambualtion. Goal Time Frame: 2-4 Weeks Goal 4:: Pt will report improvement with functional ADLs to allow for improved QOL and independence. Goal Time Frame: 2-4 Weeks - Rehabilitation Potential Physical Therapy Diagnosis: Pt is 77 y/o male with referral of R hip OA and gait difficulty. He reports hx of fall ~6 mo ago which elicited his R hip pain. Objective testing reveals loss of R hip IR and extension, R hip abduction and flexion weakness, and mild static balance impairment. Pt appears to have irritation of the glute med and TFL. He is demonstrating activity restrictions with ambulating long distances and on uneven ground. His potential for an ideal outcome is fair secondary to cognitive deficits and chronicity of symptoms. Pt will benefit from skilled therapy to address the above mentioned impairments. Rehabilitation Potential: Fair - Anticipated Interventions Patient/Client Instruction: Educate patient on: Condition, Plan of Care, Benefits of Fitness Program For the Purpose of:: To decrease pain, To increase ROM, To improve muscle performance and motor function, To improve ability to perform ADL's, To increase tolerance to activity/condition/position, To decrease soft tissue restriction, To increase flexibility/ROM, To improve health and function, To improve self management Therapeutic Exercise to Include: Strength training, Endurance training, Balance training, Flexibilty training, Gait and locomotor training, Passive ROM, Active ROM For the Purpose of:: To decrease pain, To increase ROM, To improve muscle performance and motor function, To improve ability to perform ADL's, To increase tolerance to activity/condition/position, To improve ability of physical actions for home/community/work/leisure, To improve gait and locomotor functions, To improve health of tissue, To improve endurance, To improve safety with gait Manual Therapy Techniques to Include: Mobilization, Soft tissue mobilization For the Purpose of:: To decrease pain, To increase ROM, To improve muscle performance and motor function, To improve health of tissue TENS: Yes Cryotherapy (ice pack, ice massage): Yes Ultrasound (thermal/non thermal): Yes For the Purpose of:: To decrease pain, To decrease swelling/inflammation, To increase ROM, To improve nutrient delivery to tissue, To increase tolerance to activity/condition/position, To improve health of tissue Thank you for the opportunity to evaluate your patient. For Medicare and Medicare HMO plans, please review the plan of care and approve it. It will need to be FAXED BACK to us at [phone] for Medicare purposes. Please let me know if there are questions or concerns regarding this plan of care. Physician Signature: Date:
--- NOTE | 2017-12-03 10:26 | HP.PT.NRP ---
HP - Discharge Summary (1) - Patient Information ARIANNA GUILLERMO was seen in my office for initial evaluation on 09/18/17. The following Plan of Care was established for this patient: Initial Frequency: 2x /Week Initial Duration: 4 Weeks - Anticipated Interventions Patient/Client Instruction: Educate patient on: Condition, Plan of Care, Benefits of Fitness Program For the Purpose of:: To decrease pain, To increase ROM, To improve muscle performance and motor function, To improve ability to perform ADL's, To increase tolerance to activity/condition/position, To decrease soft tissue restriction, To increase flexibility/ROM, To improve health and function, To improve self management Therapeutic Exercise to Include: Strength training, Endurance training, Balance training, Flexibilty training, Gait and locomotor training, Passive ROM, Active ROM For the Purpose of:: To decrease pain, To increase ROM, To improve muscle performance and motor function, To improve ability to perform ADL's, To increase tolerance to activity/condition/position, To improve ability of physical actions for home/community/work/leisure, To improve gait and locomotor functions, To improve health of tissue, To improve endurance, To improve safety with gait Manual Therapy Techniques to Include: Mobilization, Soft tissue mobilization For the Purpose of:: To decrease pain, To increase ROM, To improve muscle performance and motor function, To improve health of tissue TENS: Yes Cryotherapy (ice pack, ice massage): Yes Ultrasound (thermal/non thermal): Yes For the Purpose of:: To decrease pain, To decrease swelling/inflammation, To increase ROM, To improve nutrient delivery to tissue, To increase tolerance to activity/condition/position, To improve health of tissue This patient was last seen in our office 09/20/17. Pertinent comments regarding their Physical therapy will appear below: This patient seen for PT for 2 sessions for hip/back pain focusing on moalities ,ROM,strength but is d/c from PT. At this point I will be discontinuing this patient from physical therapy. I would be happy to see this patient again in the future if found appropriate by the physician. Thank you! Barry Roche, PT,
== END 2017-09-20 19:00 | disposition home or self-care (01) ==
LOC: PT 16:00
PROVIDERS: Family Provider Family Medicine Geriatric Medicine; PCP Family Medicine Geriatric Medicine; Visit Provider Family Medicine Geriatric Medicine
DX: M16.9 Osteoarthritis of hip, unspecified (principal)
CPT/HCPCS: 97035; 97110; 97162

== ENCOUNTER → 2017-11-13 13:26 | Outpatient (CLI) | payer MEDICARE, BC, SELFPAY ==
[2017-11-13 17:07] LABS: Hematocrit 33.4 % (40-54); Hemoglobin 10.7 g/dl (13.0-16.5); Mean Corpuscular Hgb 28.8 pg (27.0-32.0); Mean Platelet Vol. 11.2 fl (6.2-12.0); Platelet Count 245 K/mm3 (150-450); RBC Distribution Width CV 14.3 % (11.6-14.6); RBC Distribution Width SD 46.1 fl (35.1-43.9); Red Blood Count 3.71 M/mm3 (4.6-6.2); White Blood Count 8.8 K/mm3 (4.4-11.0)
[2017-11-13 17:47] LABS: Albumin, Serum 3.1 g/dL (3.2-5.0); BUN 44 mg/dL (7-18); BUN/Creat Ratio 11.5 RATIO (10-20); Calcium,Total 8.4 mg/dL (8.5-10.1); Chloride 105 mmol/L (98-107); Creatinine, Serum 3.81 mg/dL (0.70-1.30); EST Glomerular Filtration Rate 16 mL/min (>60); Est Glom Filt Rate - Afr Amer 20 mL/min (>60); Glucose 95 mg/dL (74-106); Phosphorus 3.3 mg/dL (2.5-4.9); Potassium 3.6 mmol/L (3.5-5.1); Sodium Level 143 mmol/L (136-145)
[2017-11-13 17:48] LABS: Scan Indicated on CBC? Y/N NO
[2017-11-14 09:00] LABS: Vitamin D,25 Hydroxy 33.1 ng/mL (29.95-100.01)
[2017-11-14 09:10] LABS: PTHIN 205.2 pg/mL (18.4-80.1)
== END ==
PROVIDERS: Family Provider Family Medicine Geriatric Medicine; PCP Family Medicine Geriatric Medicine; Visit Provider Internal Medicine Nephrology
DX: N18.4 Chronic kidney disease, stage 4 (severe) (principal); D63.8 Anemia in other chronic diseases classified elsewhere; N25.81 Secondary hyperparathyroidism of renal origin; E55.9 Vitamin D deficiency, unspecified
CPT/HCPCS: 36415; 80069; 82306; 83970; 85027

== ENCOUNTER 2017-12-04 09:18 | Day surgery (SDC) | payer MEDICARE, BC, SELFPAY ==
[2017-12-03 08:31] VITALS: BMI 41.4
--- NOTE | 2017-12-04 12:24 | OP.PCM_ITS ---
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 The cheek was taken to the special procedures lab. Was placed supine on the table. At his request no sedative was provided. The left upper extremity was sterilely prepped and draped. 2% lidocaine was instilled under ultrasound guidance close to the antecubital space retrograde with flow. Micropuncture needle inserted. Micropuncture wire inserted. 6 [place] short sheath dilator inserted. Using an angled Glidewire and 4 [place] angled glide cath Lugoff was gained to the radial artery proximal to the anastomosis. Using 15 cc of carbon dioxide fistulogram was obtained the forearm. This demonstrated 2 areas of high-grade stenosis 1 within approximately 2 cm to the anastomosis and one in the mid forearm. I placed a 6 x 80 mm ever cross balloon over the Glidewire. Balloon angioplasty was performed up to 16 moises of pressure. Completion view after 3 minutes of holding demonstrated recoil. So I then placed a 6 x 20 mm conquest balloon. Balloon angioplasty of each site was performed up to 40 moises of pressure for 3 minutes each. Completion study now demonstrated significant improvement. There was some suggestion of recoil prepped particularly in the mid forearm. At this point I elected not to attempt further treatment. He tolerated the procedure well. The sheath was removed and a U suture of 4-0 nylon was placed. Blood loss was minimal. The hand was viable. There appeared to be an adequate pulse , thrill, bruit within the fistula at the completion. No apparent complications. [place]alante gram demonstrates a little of left forearm radial to cephalic arteriovenous fistula. Within a centimeter of the anastomosis and within the mid fistula there are 2 focal areas of high-grade venous stenosis. These appear to be dramatically improved subsequent to the angioplasty. There appears to be adequate distal upper arm outflow. Liam Brown M.D., F.A.C.S.
== END 2017-12-04 13:25 | disposition home or self-care (01) ==
LOC: CLSP 09:19
PROVIDERS: Family Provider Family Medicine Geriatric Medicine; PCP Family Medicine Geriatric Medicine; Visit Provider Surgery
DX: T82.898A Other specified complication of vascular prosthetic devices, implants and grafts, initial encounter (principal); R53.83 Other fatigue; I27.20 Pulmonary hypertension, unspecified; G47.33 Obstructive sleep apnea (adult) (pediatric); I25.10 Atherosclerotic heart disease of native coronary artery without angina pectoris; I12.9 Hypertensive chronic kidney disease with stage 1 through stage 4 chronic kidney disease, or unspecified chronic kidney disease; N18.3 Chronic kidney disease, stage 3 (moderate); K21.9 Gastro-esophageal reflux disease without esophagitis; N40.0 Benign prostatic hyperplasia without lower urinary tract symptoms; R06.02 Shortness of breath; E78.5 Hyperlipidemia, unspecified; Z87.891 Personal history of nicotine dependence; Z79.899 Other long term (current) drug therapy
CPT/HCPCS: 36902; 76937; Q9967; C1725; C1769

== ENCOUNTER → 2017-12-21 12:00 | Outpatient (CLI) | payer MEDICARE, BC, SELFPAY ==
[2017-12-21 13:00] LABS: Absolute Neutrophil Count 4.5 X10^3/uL (2.0-7.7); Basophil# 0.02 X10^3/uL; Basophil% 0.3 % (0-1); Eosinophil# 0.23 X10^3/uL; Eosinophils% 3.5 % (0-5); Hematocrit 36.1 % (40-54); Hemoglobin 11.5 g/dl (13.0-16.5); Lymphocyte % 18.2 % (19-41); Mean Corp Hgb Conc 31.9 g/gl (32-36); Mean Corpuscular Hgb 28.6 pg (27.0-32.0); Mean Corpuscular Volume 89.8 fL (80-94); Mean Platelet Vol. 10.8 fl (6.2-12.0); Monocyte# 0.67 X10^3/uL; Monocyte% 10.2 % (0-10); Neutrophil # 4.46 X10^3/uL (2.7-7.7); Neutrophil % 67.8 % (47-70); Platelet Count 218 K/mm3 (150-450); RBC Distribution Width CV 14.9 % (11.6-14.6); RBC Distribution Width SD 48.8 fl (35.1-43.9); Red Blood Count 4.02 M/mm3 (4.6-6.2); White Blood Count 6.6 K/mm3 (4.4-11.0)
[2017-12-21 13:01] LABS: POSITIVE COUNT NO; POSITIVE DIFFERENTIAL NO; POSITIVE MORPHOLOGY NO
[2017-12-21 13:24] LABS: AST(SGOT) 16 U/L (15-37); Alanine Aminotransfer ALT/SGPT 28 U/L (16-61); Alkaline Phosphatase 65 U/L (45-117); Anion Gap 9 (5-15); BUN 38 mg/dL (7-18); BUN/Creat Ratio 11.7 RATIO (10-20); Calcium,Total 8.1 mg/dL (8.5-10.1); Chloride 108 mmol/L (98-107); Creatinine, Serum 3.24 mg/dL (0.70-1.30); EST Glomerular Filtration Rate 20 mL/min (>60); Est Glom Filt Rate - Afr Amer 24 mL/min (>60); Glucose 103 mg/dL (74-106); Potassium 3.9 mmol/L (3.5-5.1); Sodium Level 142 mmol/L (136-145); Thyroid Stim Hormone (TSH) 4.46 uIU/mL (0.358-3.74); Uric Acid 4.5 mg/dL (3.5-7.2)
== END ==
PROVIDERS: Family Provider Family Medicine Geriatric Medicine; PCP Family Medicine Geriatric Medicine; Visit Provider Family Medicine Geriatric Medicine
DX: I10 Essential (primary) hypertension (principal); M10.9 Gout, unspecified; E55.9 Vitamin D deficiency, unspecified
CPT/HCPCS: 36415; 80053; 82306; 84443; 84550; 85025

== ENCOUNTER → 2018-01-10 14:50 | Outpatient (CLI) | payer MEDICARE, BC, SELFPAY ==
[2018-01-10 16:56] LABS: Albumin, Serum 2.9 g/dL (3.2-5.0); BUN 43 mg/dL (7-18); BUN/Creat Ratio 12.7 RATIO (10-20); Calcium,Total 7.7 mg/dL (8.5-10.1); Chloride 108 mmol/L (98-107); Creatinine, Serum 3.38 mg/dL (0.70-1.30); EST Glomerular Filtration Rate 19 mL/min (>60); Est Glom Filt Rate - Afr Amer 23 mL/min (>60); Glucose 143 mg/dL (74-106); Phosphorus 4.1 mg/dL (2.5-4.9); Potassium 3.5 mmol/L (3.5-5.1); Sodium Level 144 mmol/L (136-145)
[2018-01-10 17:00] LABS: Hematocrit 33.1 % (40-54); Hemoglobin 10.7 g/dl (13.0-16.5); Mean Corp Hgb Conc 32.3 g/gl (32-36); Mean Corpuscular Hgb 29.3 pg (27.0-32.0); Mean Corpuscular Volume 90.7 fL (80-94); Mean Platelet Vol. 12.1 fl (6.2-12.0); Platelet Count 146 K/mm3 (150-450); RBC Distribution Width CV 14.7 % (11.6-14.6); RBC Distribution Width SD 47.4 fl (35.1-43.9); Red Blood Count 3.65 M/mm3 (4.6-6.2); White Blood Count 7.1 K/mm3 (4.4-11.0)
[2018-01-10 17:01] LABS: Scan Indicated on CBC? Y/N NO
[2018-01-10 18:03] LABS: PTHIN 244.1 pg/mL (18.4-80.1)
== END ==
PROVIDERS: Family Provider Family Medicine Geriatric Medicine; PCP Family Medicine Geriatric Medicine; Visit Provider Internal Medicine Nephrology
DX: N18.4 Chronic kidney disease, stage 4 (severe) (principal); D63.8 Anemia in other chronic diseases classified elsewhere; N25.81 Secondary hyperparathyroidism of renal origin
CPT/HCPCS: 36415; 80069; 83970; 85027

== ENCOUNTER → 2018-01-30 05:00 | Outpatient (REF) | payer MEDICARE, BC, SELFPAY ==
[2018-01-30 08:43] LABS: Absolute Lymphocyte Count 1.46 X10^3/ul (0.83-4.51); Absolute Neutrophil Count 4.6 X10^3/uL (2.0-7.7); Basophil# 0.02 X10^3/uL; Basophil% 0.3 % (0-1); Eosinophil# 0.24 X10^3/uL; Eosinophils% 3.5 % (0-5); Hematocrit 36.1 % (40-54); Hemoglobin 11.5 g/dl (13.0-16.5); Lymphocyte # 1.46 X10^3/ul (4.0); Lymphocyte % 21.3 % (19-41); Mean Corp Hgb Conc 31.9 g/gl (32-36); Mean Corpuscular Hgb 28.5 pg (27.0-32.0); Mean Corpuscular Volume 89.4 fL (80-94); Mean Platelet Vol. 11.5 fl (6.2-12.0); Monocyte% 7.3 % (0-10); Neutrophil # 4.64 X10^3/uL (2.7-7.7); Neutrophil % 67.6 % (47-70); Platelet Count 201 K/mm3 (150-450); RBC Distribution Width CV 14.1 % (11.6-14.6); RBC Distribution Width SD 46.3 fl (35.1-43.9); Red Blood Count 4.04 M/mm3 (4.6-6.2); White Blood Count 6.9 K/mm3 (4.4-11.0)
[2018-01-30 08:51] LABS: POSITIVE COUNT NO; POSITIVE DIFFERENTIAL NO; POSITIVE MORPHOLOGY NO
[2018-01-30 09:08] LABS: AST(SGOT) 13 U/L (15-37); Alanine Aminotransfer ALT/SGPT 16 U/L (16-61); Alkaline Phosphatase 81 U/L (45-117); Anion Gap 11 (5-15); BUN 46 mg/dL (7-18); BUN/Creat Ratio 12.5 RATIO (10-20); Calcium,Total 8.1 mg/dL (8.5-10.1); Chloride 104 mmol/L (98-107); Cholesterol 145 mg/dL (200); Creatinine, Serum 3.67 mg/dL (0.70-1.30); EST Glomerular Filtration Rate 17 mL/min (>60); Est Glom Filt Rate - Afr Amer 21 mL/min (>60); Glucose 106 mg/dL (74-106); High Density Lipoprotein 35 mg/dL; Potassium 2.8 mmol/L (3.5-5.1); Sodium Level 145 mmol/L (136-145); Triglycerides 147 mg/dL; Very Low Density Lipoprotein 29 mg/dL (5-40)
[2018-01-30 09:15] LABS: Vitamin D,25 Hydroxy 47.4 ng/mL (29.95-100.01)
== END ==
LOC: OLS.AVED 05:00
PROVIDERS: Visit Provider Family Medicine
DX: E78.5 Hyperlipidemia, unspecified (principal); E03.9 Hypothyroidism, unspecified
CPT/HCPCS: 36415; 80053; 80061; 82306; 84443; 85025

== ENCOUNTER → 2018-02-05 04:00 | Outpatient (REF) | payer MEDICARE, BC, SELFPAY ==
[2018-02-05 09:14] LABS: Anion Gap 8 (5-15); BUN 47 mg/dL (7-18); BUN/Creat Ratio 13.5 RATIO (10-20); Calcium,Total 8.2 mg/dL (8.5-10.1); Chloride 107 mmol/L (98-107); Creatinine, Serum 3.49 mg/dL (0.70-1.30); EST Glomerular Filtration Rate 18 mL/min (>60); Est Glom Filt Rate - Afr Amer 22 mL/min (>60); Glucose 99 mg/dL (74-106); Sodium Level 143 mmol/L (136-145)
== END ==
LOC: OLS.AVEC 04:00
PROVIDERS: Visit Provider Family Medicine
DX: I10 Essential (primary) hypertension (principal)
CPT/HCPCS: 36415; 80048

== ENCOUNTER → 2018-02-20 05:00 | Outpatient (REF) | payer MEDICARE, BC, SELFPAY ==
[2018-02-20 09:34] LABS: Hematocrit 35.3 % (40-54); Hemoglobin 11.4 g/dl (13.0-16.5); Mean Corp Hgb Conc 32.3 g/gl (32-36); Mean Corpuscular Hgb 28.7 pg (27.0-32.0); Mean Corpuscular Volume 88.9 fL (80-94); Platelet Count 247 K/mm3 (150-450); RBC Distribution Width CV 13.5 % (11.6-14.6); Red Blood Count 3.97 M/mm3 (4.6-6.2); White Blood Count 8.3 K/mm3 (4.4-11.0)
[2018-02-20 09:36] LABS: Scan Indicated on CBC? Y/N NO
[2018-02-20 10:03] LABS: Albumin, Serum 2.9 g/dL (3.2-5.0); BUN 68 mg/dL (7-18); BUN/Creat Ratio 15.9 RATIO (10-20); Calcium,Total 8.5 mg/dL (8.5-10.1); Chloride 90 mmol/L (98-107); Creatinine, Serum 4.27 mg/dL (0.70-1.30); EST Glomerular Filtration Rate 14 mL/min (>60); Est Glom Filt Rate - Afr Amer 17 mL/min (>60); Ferritin 77 ng/mL (26-388); Glucose 104 mg/dL (74-106); Iron 43 ug/dL (65-175); Iron Binding Capacity,Total 323 ug/dL (250-450); Potassium 2.7 mmol/L (3.5-5.1); Sodium Level 137 mmol/L (136-145)
[2018-02-20 10:11] LABS: PTHIN 268.6 pg/mL (18.4-80.1)
== END ==
LOC: OLS.AVEC 05:00
PROVIDERS: Visit Provider Family Medicine
DX: E78.5 Hyperlipidemia, unspecified (principal); E03.9 Hypothyroidism, unspecified
CPT/HCPCS: 36415; 80069; 82728; 83540; 83550; 83970; 85027

== ENCOUNTER → 2018-02-22 05:00 | Outpatient (REF) | payer MEDICARE, BC, SELFPAY ==
[2018-02-22 08:28] LABS: Potassium 2.5 mmol/L (3.5-5.1)
== END ==
LOC: OLS.AVEB 05:00
PROVIDERS: Visit Provider Family Medicine
DX: E87.5 Hyperkalemia (principal)
CPT/HCPCS: 36415; 84132

== ENCOUNTER → 2018-02-25 04:00 | Outpatient (REF) | payer MEDICARE, BC, SELFPAY ==
[2018-02-25 07:35] LABS: Potassium 3.1 mmol/L (3.5-5.1)
[2018-02-25 16:20] LABS: Albumin, Serum 2.9 g/dL (3.2-5.0); BUN 70 mg/dL (7-18); Calcium,Total 8.4 mg/dL (8.5-10.1); Creatinine, Serum 4.12 mg/dL (0.70-1.30); EST Glomerular Filtration Rate 15 mL/min (>60); Est Glom Filt Rate - Afr Amer 18 mL/min (>60); Glucose 112 mg/dL (74-106); Phosphorus 4.1 mg/dL (2.5-4.9); Sodium Level 137 mmol/L (136-145)
[2018-02-25 16:21] LABS: Chloride 97 mmol/L (98-107)
== END ==
LOC: OLS.AVEC 04:00
PROVIDERS: Visit Provider Family Medicine
DX: I10 Essential (primary) hypertension (principal); E78.5 Hyperlipidemia, unspecified; E03.9 Hypothyroidism, unspecified
CPT/HCPCS: 36415; 80069

== ENCOUNTER → 2018-03-22 05:00 | Outpatient (REF) | payer MEDICARE, BC, SELFPAY ==
[2018-03-22 07:28] LABS: Hemoglobin 10.4 g/dl (13.0-16.5); Mean Corp Hgb Conc 32.5 g/gl (32-36); Mean Corpuscular Hgb 28.6 pg (27.0-32.0); Mean Corpuscular Volume 87.9 fL (80-94); Mean Platelet Vol. 10.8 fl (6.2-12.0); Platelet Count 247 K/mm3 (150-450); RBC Distribution Width CV 13.7 % (11.6-14.6); RBC Distribution Width SD 42.8 fl (35.1-43.9); Red Blood Count 3.64 M/mm3 (4.6-6.2); White Blood Count 9.5 K/mm3 (4.4-11.0)
[2018-03-22 07:31] LABS: Scan Indicated on CBC? Y/N NO
[2018-03-22 07:34] LABS: Albumin, Serum 2.8 g/dL (3.2-5.0); BUN 78 mg/dL (7-18); BUN/Creat Ratio 15.6 RATIO (10-20); Calcium,Total 8.5 mg/dL (8.5-10.1); Chloride 99 mmol/L (98-107); Creatinine, Serum 4.99 mg/dL (0.70-1.30); EST Glomerular Filtration Rate 12 mL/min (>60); Est Glom Filt Rate - Afr Amer 15 mL/min (>60); Glucose 114 mg/dL (74-106); Phosphorus 4.1 mg/dL (2.5-4.9); Potassium 3.7 mmol/L (3.5-5.1); Sodium Level 138 mmol/L (136-145)
[2018-03-22 10:22] LABS: PTHIN 169.9 pg/mL (18.4-80.1)
== END ==
LOC: OLS.AVEC 05:00
PROVIDERS: Visit Provider Family Medicine
DX: E78.5 Hyperlipidemia, unspecified (principal); E03.9 Hypothyroidism, unspecified
CPT/HCPCS: 36415; 80069; 83970; 85027

== ENCOUNTER → 2018-03-30 06:45 | Outpatient (REF) | payer MEDICARE, BC, SELFPAY ==
[2018-03-30 07:53] LABS: Anion Gap 10 (5-15); BUN 63 mg/dL (7-18); BUN/Creat Ratio 14.3 RATIO (10-20); Calcium,Total 8.4 mg/dL (8.5-10.1); Chloride 99 mmol/L (98-107); Creatinine, Serum 4.42 mg/dL (0.70-1.30); EST Glomerular Filtration Rate 14 mL/min (>60); Est Glom Filt Rate - Afr Amer 17 mL/min (>60); Glucose 109 mg/dL (74-106); Potassium 3.4 mmol/L (3.5-5.1); Sodium Level 139 mmol/L (136-145)
--- OUTSIDE RECORDS SUMMARY | 2018-05-24 18:32 | XMS RPT_ITS ---
:1940 Author Organization OHIP Support Name Relationship Address Phone CHOLO GUILLERMO Unavailable [address] + [place] [address] R Unavailable Unavailable Unavailable BALDNER, CHOLO Unavailable [address] + [place] [address] R Unavailable Unavailable Unavailable Baldner, Cholo Unavailable . + [place] [address] R Unavailable Unavailable Unavailable Baldner, Cholo Unavailable . + [place] [address] R Unavailable Unavailable Unavailable Baldner, Cholo Unavailable . + [place] [address] R Unavailable Unavailable Unavailable Baldner, Cholo Unavailable . + [place] [address] R Unavailable Unavailable Unavailable Baldner, Cholo Unavailable . + [place] [address] R Unavailable Unavailable Unavailable Baldner, Cholo Unavailable . + [place] [address] R Unavailable Unavailable Unavailable Baldner, Cholo Unavailable . + [place] [address] R Unavailable Unavailable Unavailable Baldner, Cholo Unavailable . + [place] [address] R Unavailable Unavailable Unavailable Baldner, Cholo Unavailable . + [place] [address] R Unavailable Unavailable Unavailable Baldner, Cholo Unavailable . + [place] [address] R Unavailable Unavailable Unavailable Baldner, Cholo Unavailable . + [place] [address] R Unavailable Unavailable Unavailable Baldner, Cholo Unavailable . + [place] [address] R Unavailable Unavailable Unavailable BALDNER, CHOLO Unavailable . + [place] [address] R Unavailable Unavailable Unavailable BALCHOLO ERIC Unavailable . + [place] [address] R Unavailable Unavailable Unavailable CHOLO GUILLERMO Unavailable . + [place] [address] R Unavailable Unavailable Unavailable CHOLO GUILLERMO Unavailable . + [place] [address] R Unavailable Unavailable Unavailable JONOERCHOLO Unavailable . + [place] [address] R Unavailable Unavailable Unavailable R Unavailable Unavailable Unavailable BALDNER HORACE Unavailable [address] + [place] [address] CHOLO GUILLERMO Unavailable Unavailable + R Unavailable Unavailable Unavailable CHOLO GUILLERMO Unavailable . + [place] [address] R Unavailable Unavailable Unavailable BALDNER HORACE Unavailable [address] + [place] [address] CHOLO GUILLERMO Unavailable Unavailable + R Unavailable Unavailable Unavailable BALDNER HORACE Unavailable [address] + [place] [address] CHOLO GUILLERMO Unavailable . + [place] [address] R Unavailable Unavailable Unavailable BALDNER HORACE Unavailable [address] + [place] [address] CHOLO GUILLERMO Unavailable . + [place] [address] R Unavailable Unavailable Unavailable BALDNER HORACE Unavailable [address] + [place] [address] CHOLO GUILLERMO Unavailable Unavailable + [place] [address] R Unavailable Unavailable Unavailable BALDNER HORACE Unavailable [address] + [place] [address] CHOLO GUILLERMO Unavailable Unavailable + [place] [address] R Unavailable Unavailable Unavailable BALDNER HORACE Unavailable [address] + [place] [address] CHOLO GUILLERMO Unavailable Unavailable + [place] [address] R Unavailable Unavailable Unavailable BALDNER, HORACE Unavailable [address] + [place] [address] CHOLO GUILLERMO Unavailable Unavailable + [place] [address] R Unavailable Unavailable Unavailable JONOERHORACE Unavailable [address] + [place] [address] CHOLO GUILLERMO Unavailable Unavailable + [place] [address] R Unavailable Unavailable Unavailable HORACE GUILLERMO Unavailable [address] + [place] [address] CHOLO GUILLERMO Unavailable . + [place] [address] R Unavailable Unavailable Unavailable JONOERHORACE Unavailable [address] + [place] [address] CHOLO GUILLERMO Unavailable Unavailable + [place] [address] R Unavailable Unavailable Unavailable JONOERHORACE Unavailable [address] + [place] [address] CHOLO GUILLERMO Unavailable . + [place] [address] R Unavailable Unavailable Unavailable HORACE GUILLERMO Unavailable [address] + [place] [address] CHOLO GUILLERMO Unavailable . + [place] [address] R Unavailable Unavailable Unavailable HORACE GUILLERMO Unavailable [address] + [place] [address] CHOLO GUILLERMO Unavailable Unavailable + [place] [address] R Unavailable Unavailable Unavailable HORACE GUILLERMO Unavailable [address] + [place] [address] CHOLO GUILLERMO Unavailable Unavailable + [place] [address] R Unavailable Unavailable Unavailable JONOERHORACE Unavailable [address] + [place] [address] CHOLO GUILLERMO Unavailable Unavailable + [place] [address] R Unavailable Unavailable Unavailable JONOERNICOLLEHORACE Unavailable [address] + [place] [address] CHOLO GUILLERMO Unavailable Unavailable + [place] [address] R Unavailable Unavailable Unavailable HORACE GUILLERMO Unavailable [address] + [place] [address] CHOLO GUILLERMO Unavailable Unavailable + [place] [address] R Unavailable Unavailable Unavailable HORACE GUILLERMO Unavailable [address] + [place] [address] CHOLO GUILLERMO Unavailable 1 + [place] [address] R Unavailable Unavailable Unavailable HORACE GUILLERMO Unavailable [address] + [place] [address] CHOLO GUILLERMO Unavailable [address] + [place] [address] R Unavailable Unavailable Unavailable HORACE GUILLERMO Unavailable [address] + [place] [address] CHOLO GUILLERMO Unavailable 1 + [place] [address] R Unavailable Unavailable Unavailable HORACE GUILLERMO Unavailable [address] + [place] [address] CHOLO GUILLERMO Unavailable 1 + [place] [address] R Unavailable Unavailable Unavailable HORACE GUILLERMO Unavailable [address] + [place] [address] CHOLO GUILLERMO Unavailable 1 + [place] [address] R Unavailable Unavailable Unavailable HORACE GUILLERMO Unavailable [address] + [place] [address] CHOLO GUILLERMO Unavailable 1 + [place] [address] R Unavailable Unavailable Unavailable HORACE GUILLERMO Unavailable [address] + [place] [address] CHOLO GUILLERMO Unavailable 1 + [place] [address] R Unavailable Unavailable Unavailable HORACE GUILLERMO Unavailable [address] + [place] [address] CHOLO GUILLERMO Unavailable 1 + [place] [address] R Unavailable Unavailable Unavailable HORACE GUILLERMO Unavailable [address] + [place] [address] CHOLO GUILLERMO Unavailable 1 + [place] [address] R Unavailable Unavailable Unavailable HORACE GUILLERMO Unavailable [address] + [place] [address] CHOLO GUILLERMO Unavailable 1 + [place] [address] R Unavailable Unavailable Unavailable HORACE GUILLERMO Unavailable [address] + [place] [address] CHOLO GUILLERMO Unavailable 1 + [place] [address] R Unavailable Unavailable Unavailable HORACE GUILLERMO Unavailable [address] + [place] [id number] CHOLO GUILLERMO Unavailable Unavailable + R Unavailable Unavailable Unavailable HORACE GUILLERMO Unavailable [address] + [place] [address] CHOLO GUILLERMO Unavailable NA + [place], [place] R Unavailable Unavailable Unavailable HORACE GUILLERMO Unavailable [address] + [place] [address] CHOLO GUILLERMO Unavailable NA + [place], [place] R Unavailable Unavailable Unavailable HORACE GUILLERMO Unavailable [address] + [place] [address] CHOLO GUILLERMO Unavailable NA + [place], [place] R Unavailable Unavailable Unavailable HORACE GUILLERMO Unavailable [address] + [place] [address] CHOLO GUILLERMO Unavailable NA + [place], [place] R Unavailable Unavailable Unavailable HORACE GUILLERMO Unavailable [address] + [place] [address] CHOLO GUILLERMO Unavailable NA + [place], [place] R Unavailable Unavailable Unavailable HORACE GUILLERMO Unavailable [address] + [place] [address] CHOLO GUILLERMO Unavailable NA + [place], [place] R Unavailable Unavailable Unavailable HORACE GUILLERMO Unavailable [address] + [place] [address] CHOLO GUILLERMO Unavailable [address] + [place] [address] R Unavailable Unavailable Unavailable HORACE GUILLERMO Unavailable [address] + [facility] [address] CHOLO GUILLERMO Unavailable Unavailable + R Unavailable Unavailable Unavailable HORACE GUILLERMO Unavailable [address] + [place] [address] CHOLO GUILLERMO Unavailable 1 + [place] [address] R Unavailable Unavailable Unavailable HORACE GUILLERMO Unavailable [address] + [place] [address] CHOLO GUILLERMO Unavailable NA + [place], [place] R Unavailable Unavailable Unavailable HORACE GUILLERMO Unavailable [address] + [place] [address] CHOLO GUILLERMO Unavailable [address] + [place] [address] R Unavailable Unavailable Unavailable HORACE GUILLERMO Unavailable [address] + [place] [address] CHOLO GUILLERMO Unavailable [address] + [place] [address] R Unavailable Unavailable Unavailable HORACE GUILLERMO Unavailable [address] + [place] [address] CHOLO GUILLERMO Unavailable NA + [place], [place] R Unavailable Unavailable Unavailable HORACE GUILLERMO Unavailable [address] + [place] [address] CHOLO GUILLERMO Unavailable NA + [place], [place] R Unavailable Unavailable Unavailable HORACE GUILLERMO Unavailable [address] + [place] [address] CHOLO GUILLERMO Unavailable 1 + [place] [address] R Unavailable Unavailable Unavailable Care Team Providers Name Role Phone Liam Brown Attending Unavailable Nicolas, Justice Chi Referring Unavailable Liam Brown Attending Unavailable Liam Brown Referring Unavailable Nicolas, Justice Chi Primary Care Unavailable Nicolas, Justice Chi Attending Unavailable Nicolas, Justice Chi Primary Care Unavailable Nicolas, Justice Chi Attending Unavailable Nicolas, Justice Chi Primary Care Unavailable Luann Lang Attending Unavailable Nicolas, Justice Chi Primary Care Unavailable NadirabulLiam Attending Unavailable Cebul, Liam Referring Unavailable Nicolas, Justice Chi Primary Care Unavailable Cebul Liam Consulting Unavailable Cebul, Liam Attending Unavailable Nicolas, Justice Chi Referring Unavailable Nicolas, Justice Chi Primary Care Unavailable Cebunohemy Liam Attending Unavailable Nicolas, Justice Chi Primary Care Unavailable Nadirabunohemy Liam Attending Unavailable Nicolas, Justice Chi Primary Care Unavailable Cebul, Liam Referring Unavailable Cholo Soto Attending Unavailable Nicolas, Justice Chi Referring Unavailable Nicolas, Justice Chi Primary Care Unavailable Virgen PA-CJaylin Attending Unavailable Nicolas, Justice Chi Referring Unavailable Nicolas, Justice Chi Primary Care Unavailable New PA-CBetoJaylin Attending Unavailable Nicolas, Justice Chi Referring Unavailable Nicolas, Justice Chi Primary Care Unavailable Nicolas, Justice Chi Attending Unavailable Nicolas, Justice Chi Referring Unavailable Nicolas, Justice Chi Primary Care Unavailable Nicolas, Justice Chi Attending Unavailable Nicolas, Justice Chi Primary Care Unavailable Nicolas, Justice Chi Primary Care Unavailable Uli Laguerre Attending Unavailable Nicolas, Justice Chi Attending Unavailable Nicolas, Justice Chi Primary Care Unavailable Nicolas, Justice Chi Attending Unavailable Nicolas, Justice Chi Referring Unavailable Nicolas, Justice Chi Primary Care Unavailable Mason Rod Consulting Unavailable Tolu Dudley Attending Unavailable Cebul, Liam Referring Unavailable New PA-CBetoJaylin Attending Unavailable Nicolas, Justice Chi Referring Unavailable Nicolas, Justice Chi Primary Care Unavailable Liam Brown Attending Unavailable Nicolas, Justice Chi Attending Unavailable Nicolas, Justice Chi Referring Unavailable Nicolas, Justice Chi Primary Care Unavailable Nicolas, Justice Chi Attending Unavailable Nicolas, Justice Chi Primary Care Unavailable Nicolas, Justice Chi Attending Unavailable Nicolas, Justice Chi Primary Care Unavailable Nicolas, Justice Chi Attending Unavailable Nicolas, Justice Chi Referring Unavailable Nicolas, Justice Chi Primary Care Unavailable New PA-C Jaylin Attending Unavailable Nicolas, Justice Chi Referring Unavailable Nicolas, Justice Chi Primary Care Unavailable Cebul Liam Attending Unavailable Nicolas, Justice Chi Attending Unavailable Nicolas, Justice Chi Primary Care Unavailable Nicolas, Justice Chi Attending Unavailable Nicolas, Justice Chi Primary Care Unavailable Nicolas, Justice Chi Attending Unavailable Nicolas, Justice Chi Referring Unavailable Nicolas, Justice Chi Primary Care Unavailable New PA-C, Jaylin Attending Unavailable Nicolas, Justice Chi Referring Unavailable Nicolas, Justice Chi Primary Care Unavailable Cebul, Liam Attending Unavailable Cebul, Liam Referring Unavailable Nicolas, Justice Chi Primary Care Unavailable Raven Vo Attending Unavailable Nicolas, Justice Chi Attending Unavailable Nicolas, Justice Chi Primary Care Unavailable Nicolas, Justice Chi Attending Unavailable Nicolas, Justice Chi Primary Care Unavailable CebulLiam Attending Unavailable Cebul, Liam Referring Unavailable Nicolas, Justice Chi Primary Care Unavailable NadirabulLiam Consulting Unavailable Virgen PA-CJaylin Attending Unavailable Nicolas, Justice Chi Referring Unavailable Nicolas, Justice Chi Primary Care Unavailable Nicolas, Justice Chi Attending Unavailable Nicolas, Justice Chi Primary Care Unavailable Nicolas, Justice Chi Referring Unavailable Nicolas, Justice Chi Primary Care Unavailable Nicolas, Justice Chi Attending Unavailable Jaylin New PA-C Attending Unavailable Nicolas, Justice Chi Referring Unavailable Nicolas, Justice Chi Primary Care Unavailable Luann Lang Attending Unavailable Nicolas, Justice Chi Primary Care Unavailable Nicolas, Justice Chi Attending Unavailable Nicolas, Justice Chi Primary Care Unavailable Nicolas, Justice Chi Referring Unavailable Nicolas, Justice Chi Attending Unavailable Nicolas, Justice Chi Referring Unavailable Nicolas, Justice Chi Primary Care Unavailable Raven Vo Attending Unavailable Jaylin New PA-C Attending Unavailable Nicolas, Justice Chi Referring Unavailable Luann Lang Attending Unavailable Nicolas, Justice Chi Primary Care Unavailable Jaylin New PA-C Attending Unavailable Nicolas, Justice Chi Referring Unavailable Nicolas, Justice Chi Primary Care Unavailable CeLiam rader Attending Unavailable Cebul, Liam Referring Unavailable Nicolas, Justice Chi Primary Care Unavailable Luann Lang Attending Unavailable Nicolas, Justice Chi Primary Care Unavailable Jaylin New PA-C Attending Unavailable Nicolas, Justice Chi Referring Unavailable Nicolas, Justice Chi Primary Care Unavailable Nicolas, Justice Chi Attending Unavailable Nicolas, Justice Chi Primary Care Unavailable CebulLiam Attending Unavailable Cebul, Liam Referring Unavailable AbhishekLuann Attending Unavailable Nicolas, Justice Chi Primary Care Unavailable Luann Lang Attending Unavailable Nicolas, Justice Chi Primary Care Unavailable Raven Vo Attending Unavailable Norris Murphy Attending Unavailable Jeffrey, Norris Attending Unavailable CebulLiam Attending Unavailable Nicolas, Justice Chi Referring Unavailable Norris Murphy Attending Unavailable Norris Pastrana Attending Unavailable Nicolas, Justice Chi Referring Unavailable Norris Murphy Attending Unavailable Norris Murphy Attending Unavailable Luann Lang Attending Unavailable Nicolas, Justice Chi Primary Care Unavailable Norris Murphy Attending Unavailable MurphyNorris garcia Attending Unavailable Luann Lang Attending Unavailable Nicolas, Justice Chi Primary Care Unavailable PROBLEMS PROBLEMS DATE TYPE CONDITION / CODE ATTENDING STATUS SOURCE Unknown E03.9 - Hypothyroidism, Jeffrey Norris Active [facility] [facility] unspecified / Community E03.9(ICD-10) Hospital Repository Unknown E78.5 - Hyperlipidemia, MurphyNorris garcia Active [place] [facility] unspecified / Community E78.5(ICD-10) Hospital Repository Unknown I10 - Essential MurphyNorris garcia Active [place] [facility] (primary) hypertension / Community I10(ICD-10) Hospital Repository Unknown E87.5 - Hyperkalemia / Norris Murphy Active [facility] [facility] E87.5(ICD-10) [facility] Hospital Repository Unknown T82.598A - Other Liam Brown Active [facility] [facility] mechanical complication Community of other cardiac and Hospital vascular devices and Repository implants, initial encounter / T82.598A(ICD-10) Unknown N18.4 - Chronic kidney Luann Lang Active [place] [facility] disease, stage 4 Community (severe) / N18.4(ICD-10) Hospital Repository Unknown E55.9 - Vitamin D Luann Lang Active [place] [facility] deficiency, unspecified Community / E55.9(ICD-10) Hospital Repository Unknown D63.8 - Anemia in other Luann Lang Active [facility] 8 chronic diseases Community classified elsewhere / Hospital D63.8(ICD-10) Repository Unknown 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 / Hospital N25.81(ICD-10) Repository Unknown M16.9 - Osteoarthritis Nicolas, Justice Chi Active [facility] 8 of hip, unspecified / Community M16.9(ICD-10) Hospital Repository Unknown L50.9 - Urticaria, Nicolas, Justice Chi Active [facility] [facility] unspecified / Community L50.9(ICD-10) Hospital Repository Unknown M54.6 - Pain in thoracic Nicolas, Justice Chi Active [place] [facility] spine / M54.6(ICD-10) [facility] Hospital Repository Unknown M10.9 - Gout, Nicolas, Jutsice Chi Active [facility] [facility] unspecified / Community M10.9(ICD-10) Hospital Repository Unknown R06.02 - Shortness of Nicolas, Justice Chi Active [place] [facility] breath / R06.02(ICD-10) [facility] Hospital Repository Unknown N39.0 - Urinary tract Nicolas, Justice Chi Active [place] [facility] infection, site not Community specified / Hospital N39.0(ICD-10) Repository Unknown N18.3 - Chronic kidney Nicolas, Justice Chi Active [place] [facility] disease, stage 3 Community (moderate) / Hospital N18.3(ICD-10) Repository Unknown G89.18 - Other acute CeLiam rader Active [place] [facility] postprocedural pain / Community G89.18(ICD-10) Hospital Repository Unknown R00.1 - Bradycardia, Octavia, [place] Active [place] [facility] unspecified / Community R00.1(ICD-10) Hospital Repository Unknown R94.31 - Abnormal Octavia, Tolu Active [place] [facility] electrocardiogram [ECG] Community [EKG] / R94.31(ICD-10) Hospital Repository Unknown Z01.818 - Encounter for Liam Brown Active [place] [facility] other preprocedural Community examination / Hospital Z01.818(ICD-10) Repository Unknown N18.5 - Chronic kidney Liam Brown Active [place] [facility] disease, stage 5 / Community N18.5(ICD-10) Hospital Repository PROCEDURES PROCEDURES No Procedure Records FoundRESULTS RESULTS OPERATIVE REPORT Observed: 04/12/2018 Status: F Source: [place] 12:14 [facility] REPOSITORY [facility] Medical Records Department [address] [place] [address] Operative Report 04/12/18 1210 MR#: [id number] Acct: [id number] Name: ARIANNA GUILLERMO Rep #: [id number] : 1940 77 From: Liam Brown MD PCP: Nicolas HOWE,Justice García Status: REG SD Y Location: [facility] Problem List (1) Problem with dialysis access Status: Acute Qualifiers: Encounter type: subsequent encounter Report of Operation Date of Procedure: 04/12/18 Pre-Operative Diagnosis: Failure to mature transposed left forearm cephalic vein to radial artery arteriovenous hemodialysis fistula Post-Operative Diagnosis: 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 77-year-old gent was taken to the special procedure room placed supine on the table. The left upper extremity sterilely prepped and draped. He was very comfortable so no IV sedative was required. Under ultrasound guidance closer to the arterial anastomosis antegrade with flow 2% lidocaine was instilled. Micropuncture needle was inserted. Micropuncture wire inserted. A 6 Kazakh short sheath was inserted. Using carbon dioxide fistulogram was taken the forearm and distal upper arm area. This demonstrated 3 areas of high-grade venous stenosis. An SV 5 wire was placed. A 7 x 2 cutting balloon was placed. The more proximal portion of the fistula in the midportion of the fistula treated with cutting balloon and I was planning on treating the more distal part of the fistula close to the antecubital space however the balloon faulted. At that point and I elected to treat the remainder of the areas of stenosis with a 7 x 2 conquest balloon. All of these balloons were insufflated to recommended pressures. At the completion carbon dioxide view demonstrated dramatic improvement. There is some residual stenosis close to the antecubital space. The sheath was removed U suture of 4-0 nylon was placed he was comfortable there was a pulse thrill and bruit Fistulogram demonstrates a left forearm AV fistula with 3 areas of venous stenosis. The more proximal portion of the fistula close to the radial arterial anastomotic area was completely resolved. The mid fistula stenosis also appeared to be resolved. The more distal part of the fistula close to the antecubital space had not completely been treated with the [employer] balloon inflated to maximum load. There is a much improved pulse thrill and bruit. I elected to cease further intervention at this time. He tolerated the procedure well. He does have some extravasation in the mid forearm which will be observed. He was given 4000 units of heparin during the angioplasty. He will be carefully observed and have an office follow-up in 1 week. The patient may require further repeat interventions in the future antegrade with flow and he might require cutting balloon treatment at the antecubital space. Liam Brown M.D., F.A.C.S. Type of Anesthesia:: Local 04/12/18 1214 <Electronically signed by Liam Brown MD> Date Liam Brown MD CC: Liam Brown MD; Justice Britt MD Signed CBC-COMPLETE BLOOD CNT Collected: 04/12/2018 Status: F Source: [place] NO DIFF 10:00 AM [facility] TYPE CODE TESTS RESULT OUT OF RANGE REFERENCE UNITS LAB L100.1000 4.4-11.0 K/mm3 Normal WBC 8.1 LAB L100.1200 4.6-6.2 M/mm3 Low RBC 3.63 LAB L100.1300 13.0-16.5 g/dl Low HGB 10.3 LAB L100.1400 40-54 % Low HCT 31.8 LAB L100.1500 80-94 fL Normal MCV 87.6 LAB L100.1600 27.0-32.0 pg Normal MCH 28.4 LAB L100.1700 32-36 g/gl Normal MCHC 32.4 LAB L100.1810 11.6-14.6 % Normal RDW CV 14.0 LAB L100.1820 35.1-43.9 fl High RDW SD 44.8 LAB L100.1900 150-450 K/mm3 Normal PLT 224 LAB L100.2000 6.2-12.0 fl Normal MPV 10.0 Performed By: #### L100.0500 #### [facility] [address] [place], [place], [id number] BASIC METABOLIC Collected: 04/12/2018 Status: F Source: [place] PROFILE (BMP) 10:00 AM [facility] TYPE CODE TESTS RESULT OUT OF RANGE REFERENCE UNITS LAB L501.0100 74-106 mg/dL Normal GLU 98 Result Comment: Please note revised GLUCOSE reference range effective 2017. LAB L501.1000 7-18 mg/dL High BUN 49 LAB L501.1100 0.70-1.30 mg/dL High CREAT,SERUM 4.20 Result Comment: The validity of the calculated GFR AND GFRAA in patients over 70 years has not been determined. Clinical correlation is essential. LAB L501.1110 >60 mL/min Low EST GFR 15 Result Comment: Non- GFR Calc LAB L501.1115 >60 mL/min Low EST GFR - AA 18 Result Comment: GFR Calc LAB L501.1300 10-20 RATIO Normal BUN/CRE 11.7 LAB L501.2200 8.5-10.1 mg/dL CA Normal 8.6 LAB L501.5300 136-145 mmol/L NA Normal 141 LAB L501.5600 3.5-5.1 mmol/L K Normal 4.9 LAB L501.5900 98-107 mmol/L CL Normal 107 LAB L501.6100 21.0-32.0 mmol/L Normal CO2 27.0 LAB L501.6200 5-15 Normal GAP 7 Performed By: #### L500.2500 #### [facility] [address] [facility] [place], [address] SURGERY VISIT REPORT Observed: 04/10/2018 Status: F Source: [place] 3:48 PM [facility] [address] [place] [address] OFFICE VISIT Date of Service: 04/10/18 MR#: [id number] Acct: [id number] Name: ARIANNA GUILLERMO Nohemy Rep #: [id number] : 1940 Provider: Liam Brown MD Age/Sex: 77/M Location: [facility] Status: Signed Intake Intake Visit Reasons: 6 WK F/U Fistula 12/04 Chief Complaint: post fistulogram Allergies JAMEEL Inhibitors Allergy (Verified 02/20/18 16:05) Unknown doxazosin mesylate [From Cardura] Allergy (Verified 02/20/18 16:05) Hives fosinopril sodium [From Monopril] Allergy (Verified 02/20/18 16:05) Hives lisinopril Allergy (Verified 02/20/18 16:05) Hives morphine Allergy (Verified 02/20/18 16:05) Other ibuprofen Adverse Reaction (Unknown, Verified 02/20/18 16:05) Unknown Medications Aspirin [Aspirin, Baby] 81 mg PO DAILY@0800 04/01/14 [History Confirmed 02/20/18] Finasteride [Proscar] 5 mg PO DAILY 04/01/14 [History Confirmed 02/20/18] Nitroglycerin [Nitrostat] 0.4 mg SUBLINGUAL Q5M PRN 02/01/15 [History Confirmed 02/20/18] clopidogrel 75 mg tablet 75 mg PO DAILY #90 tab 06/12/17 [Rx Confirmed 02/20/18] pravastatin 20 mg tablet 20 mg PO QHS #90 tab 08/08/17 [Rx Confirmed 02/20/18] cholecalciferol (vitamin D3) 50,000 unit capsule 50,000 unit PO QWEEK 09/13/17 [History Confirmed 02/20/18] citalopram 20 mg tablet 20 mg PO QDAY 09/13/17 [History Confirmed 02/20/18] donepezil 5 mg tablet 5 mg PO QDAY 09/13/17 [History Confirmed 02/20/18] levothyroxine 25 mcg tablet 50 mcg PO DAILY tab 09/13/17 [History Confirmed 02/20/18] potassium chloride ER 20 mEq tablet,extended release 20 meq PO DAILY tab 01/17/18 [History Confirmed 02/20/18] terazosin 5 mg capsule 5 mg PO DAILY 01/17/18 [History Confirmed 02/20/18] acetaminophen 325 mg capsule 650 mg PO Q6H PRN cap 02/20/18 [History Confirmed 02/20/18] atenolol 50 mg tablet 50 mg PO BID tab 02/20/18 [History Confirmed 02/20/18] bisacodyl 10 mg rectal suppository 10 mg RC DAILY PRN 02/20/18 [History Confirmed 02/20/18] furosemide 80 mg tablet 40 mg PO BID tab 02/20/18 [History Confirmed 02/20/18] magnesium hydroxide 400 mg/5 mL oral suspension 30 ml PO DAILY PRN ml 02/20/18 [History Confirmed 02/20/18] calcitriol 0.25 mcg capsule 0.25 mcg PO DAILY cap 02/27/18 [History] ferrous sulfate 325 mg (65 mg iron) tablet 325 mg PO BID tab 02/27/18 [History] PFSH Medical History Fatigue (Chronic) Abnormal electrocardiogram (Chronic) Long-term use of high-risk medication (Chronic) BMI 40.0-44.9, adult (Chronic) Chest pain on exertion (Chronic) Angina pectoris (Chronic) Pulmonary hypertension (Chronic) ALY (obstructive sleep apnea) (Chronic) Abnormal nuclear stress test (Chronic) Diastolic heart failure (Chronic) Sinus bradycardia (Chronic) Atherosclerosis of 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 (Chronic) Shortness of breath (Chronic) Atherosclerosis of 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 (Acute) Hypertension (Chronic) Arthritis (Chronic) Benign essential hypertension (Chronic) Benign prostatic hypertrophy without lower urinary tract symptoms (Chronic) Chronic kidney disease (Chronic) Coronary artery disease (Chronic) Gastroesophageal reflux disease (Chronic) Hyperlipidemia (Chronic) Normochromic normocytic anemia (Chronic) Chronic renal failure, stage 3 (moderate) (Chronic) Chest pain (Acute) Hypokalemia (Acute) Acute renal insufficiency (Acute) Surgical History 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 (Acute) Status post right partial knee replacement (Acute) History of bilateral hip arthroplasty (Acute) History of angioplasty (Chronic) S/P peripheral artery angioplasty (Acute) history fistulogram (Acute 07/27/17) Family History Father Hypertension Cancer Brother CAD (coronary artery disease) Mother Hypertension Sister Hypertension Son Atrial fibrillation Social History Smoking Status: Former smoker second hand exposure: No alcohol intake: never substance use type: does not use caffeine: No what type of physical activity do you participate in: none HPI HPI HPI: ARIANNA GUILLERMO, is a 77 M who presents to the office today for ongoing surgical follow-up regarding his transposed left forearm cephalic vein to radial artery hemodialysis fistula. He is not yet on hemodialysis. Previous records revealed a followin-year-old gentleman. On May 10, 2017 I created for him a transposition left forearm cephalic vein to radial artery arteriovenous fistula. On July 27, 2017 I performed a 5 x 80 mm ever cross angioplasty. On December 04, 2017 I performed a fistulogram with a 6 x 80 mm ever cross angioplasty and a 6 x 20 mm ConQuest angioplasty. The angioplasty was performed within a couple centimeters of the anastomosis in the proximal fistula and in the mid fistula. The patient is not yet on hemodialysis. He has no particular complaints. Exam Const General: cooperative, healthy appearing Nutritional Appearance: obese Orientation: alert, awake HENGA Head: normal to inspection Resp Effort AND Inspection: normal respiratory effort Auscultation: clear to auscultation bilaterally Cardio Rate: regular rate Rhythm: regular rhythm GI Palpation: soft Extrem Other: Left upper extremity: Very well-healed left forearm incision. Pulse and thrill and bruit noted. Ultrasound inspection reveals that the anastomosis and proximal portion of the fistula appears to be quite nicely patent at 7 mm. Approximately mid forearm to slightly mid to more proximal forearm there is clearly area of hypertrophic venous wall and narrowing. Assessment AND Plan Problems 1. Problem with dialysis access, subsequent encounter T82.898D Plan Again the patient is not yet on hemodialysis. He does not handle sedation well. We are trying to manipulate everything possible to maximize his fistula. I propose a carbon dioxide fistulogram antegrade with flow. I am anticipating clinically significant stenosis in the mid to slightly more proximal left forearm. He has already had as noted above angioplasty with a ever cross balloon and a [employer] balloon. On this next occasion might consider utilizing a cutting balloon. Could consider utilizing a drug coated balloon but I will try to avoid this unless indicated. Has had an opportunity to ask and have questions answered. We will schedule and proceed with his care. Liam Brown M.D., F.A.C.S. Coding Level of Care Code Off vis,est,level 2 Diagnoses Problem with dialysis access, subsequent encounter T82.898D Encounter type: subsequent encounter 04/10/18 1548 <Electronically signed by Liam Brown MD> Date Liam Brown MD Cosigner Signature: Date (if applicable) CC: BASIC METABOLIC Collected: 03/30/2018 Status: F Source: [place] PROFILE ([facility]) 6:45 AM [facility] TYPE CODE TESTS RESULT OUT OF RANGE REFERENCE UNITS LAB L501.0100 74-106 mg/dL High GLU 109 Result Comment: Fasting Glucose result from 100 to 125 mg/dL suggests IMPAIRED HOMEOSTASIS per A.D.A. criteria. Please note revised GLUCOSE reference range effective 2017. LAB L501.1000 7-18 mg/dL High BUN 63 LAB L501.1100 0.70-1.30 mg/dL High CREAT,SERUM 4.42 Result Comment: The validity of the calculated GFR AND GFRAA in patients over 70 years has not been determined. Clinical correlation is essential. LAB L501.1110 >60 mL/min Low EST GFR 14 Result Comment: Non- GFR Calc LAB L501.1115 >60 mL/min Low EST GFR - AA 17 Result Comment: GFR Calc LAB L501.1300 10-20 RATIO Normal BUN/CRE 14.3 LAB L501.2200 8.5-10.1 mg/dL Low CA 8.4 LAB L501.5300 136-145 mmol/L NA Normal 139 LAB L501.5600 3.5-5.1 mmol/L Low K 3.4 LAB L501.5900 98-107 mmol/L CL Normal 99 LAB L501.6100 21.0-32.0 mmol/L Normal CO2 30.0 LAB L501.6200 5-15 Normal GAP 10 Performed By: #### L500.2500 #### [facility] [address] [place], [address] CBC-COMPLETE BLOOD CNT Collected: 03/22/2018 Status: F Source: [place] NO DIFF 6:05 AM [facility] Order Comment: RM:165 TYPE CODE TESTS RESULT OUT OF RANGE REFERENCE UNITS LAB L100.1000 4.4-11.0 K/mm3 Normal WBC 9.5 LAB L100.1200 4.6-6.2 M/mm3 Low RBC 3.64 LAB L100.1300 13.0-16.5 g/dl Low HGB 10.4 LAB L100.1400 40-54 % Low HCT 32.0 LAB L100.1500 80-94 fL Normal MCV 87.9 LAB L100.1600 27.0-32.0 pg Normal MCH 28.6 LAB L100.1700 32-36 g/gl Normal MCHC 32.5 LAB L100.1810 11.6-14.6 % Normal RDW CV 13.7 LAB L100.1820 35.1-43.9 fl Normal RDW SD 42.8 LAB L100.1900 150-450 K/mm3 Normal PLT 247 LAB L100.2000 6.2-12.0 fl Normal MPV 10.8 Performed By: #### L100.0500 #### [facility] [address] [place], [place], [address] RENAL PROFILE Collected: 03/22/2018 Status: F Source: [place] 6:05 AM [facility] Order Comment: RM:165 TYPE CODE TESTS RESULT OUT OF RANGE REFERENCE UNITS LAB L501.0100 74-106 mg/dL High GLU 114 Result Comment: Fasting Glucose result from 100 to 125 mg/dL suggests IMPAIRED HOMEOSTASIS per A.D.A. criteria. Please note revised GLUCOSE reference range effective 2017. LAB L501.1000 7-18 mg/dL High BUN 78 LAB L501.1100 0.70-1.30 mg/dL High CREAT,SERUM 4.99 Result Comment: The validity of the calculated GFR AND GFRAA in patients over 70 years has not been determined. Clinical correlation is essential. LAB L501.1110 >60 mL/min Low EST GFR 12 Result Comment: Non- GFR Calc LAB L501.1115 >60 mL/min Low EST GFR - AA 15 Result Comment: GFR Calc LAB L501.1300 10-20 RATIO Normal BUN/CRE 15.6 LAB L501.1800 3.2-5.0 g/dL Low ALB 2.8 LAB L501.2200 8.5-10.1 mg/dL CA Normal 8.5 LAB L501.2300 2.5-4.9 mg/dL Normal PHOS 4.1 LAB L501.5300 136-145 mmol/L NA Normal 138 LAB L501.5600 3.5-5.1 mmol/L K Normal 3.7 LAB L501.5900 98-107 mmol/L CL Normal 99 LAB L501.6100 21.0-32.0 mmol/L Normal CO2 27.0 Performed By: #### L500.3600 #### [facility] [address] [place], [address] PTHIN Collected: 03/22/2018 Status: F Source: [place] 6:05 AM [facility] Order Comment: RM:165 RT AC TYPE CODE TESTS RESULT OUT OF RANGE REFERENCE UNITS LAB L509.1000 18.4-80.1 pg/mL High PTHIN 169.9 Performed By: #### L509.1000 #### [facility] [address] [place], [address] POTASSIUM Collected: 02/25/2018 Status: F Source: [place] 5:30 AM [facility] Order Comment: ROOM 165 TYPE CODE TESTS RESULT OUT OF RANGE REFERENCE UNITS LAB L501.5600 3.5-5.1 mmol/L Low K 3.1 Performed By: #### L501.5600, L500.3600 #### [facility] [address] [place], [address] RENAL PROFILE Collected: 02/25/2018 Status: F Source: [place] 5:30 AM [facility] Order Comment: ROOM 165 DR LANG ORDERED RENAL PANEL TYPE CODE TESTS RESULT OUT OF RANGE REFERENCE UNITS LAB L501.5600 3.5-5.1 mmol/L Low K 3.1 LAB L501.0100 74-106 mg/dL High GLU 112 Result Comment: Fasting Glucose result from 100 to 125 mg/dL suggests IMPAIRED HOMEOSTASIS per A.D.A. criteria. Please note revised GLUCOSE reference range effective 2017. LAB L501.1000 7-18 mg/dL High BUN 70 LAB L501.1100 0.70-1.30 mg/dL High CREAT,SERUM 4.12 Result Comment: The validity of the calculated GFR AND GFRAA in patients over 70 years has not been determined. Clinical correlation is essential. LAB L501.1110 >60 mL/min Low EST GFR 15 Result Comment: Non- GFR Calc LAB L501.1115 >60 mL/min Low EST GFR - AA 18 Result Comment: GFR Calc LAB L501.1300 10-20 RATIO Normal BUN/CRE 17.0 LAB L501.1800 3.2-5.0 g/dL Low ALB 2.9 LAB L501.2200 8.5-10.1 mg/dL Low CA 8.4 LAB L501.2300 2.5-4.9 mg/dL Normal PHOS 4.1 LAB L501.5300 136-145 mmol/L NA Normal 137 LAB L501.5900 98-107 mmol/L Low CL 97 LAB L501.6100 21.0-32.0 mmol/L Normal CO2 30.0 Performed By: #### L501.5600, L500.3600 #### [facility] [address] [place], [address] POTASSIUM Collected: 02/22/2018 Status: F Source: [place] 5:35 AM [facility] Order Comment: RM:165 TYPE CODE TESTS RESULT OUT OF RANGE REFERENCE UNITS LAB L501.5600 3.5-5.1 mmol/L Low alert K 2.5 Result Comment: Critical Result(s) Called to Radha at [facility] [address] [place] at: 08:27:54 02/22/2018 by: Lissy Performed By: #### L501.5600 #### [facility] [address] [place], [address] CARDIOLOGY VISIT Observed: 02/20/2018 Status: F Source: [place] REPORT 6:24 PM [facility] [address] [place] [address] OFFICE VISIT Date of Service: 02/20/18 MR#: [id number] Acct: [id number] Name: ARIANNA GUILLERMO Rep #: [id number] : 1940 Provider: Norris Pastrana MD Age/Sex: 77/M [place] [facility] [place] Signed HPI HPI Details: ARIANNA GUILLERMO, is a 77 M who presents to the office today for outpatient cardiovascular follow-up. Overall he states he is doing well at this time with no symptoms of ongoing angina pectoris and no evidence of ongoing CHF or pulmonary edema. There has been no near syncope or syncope. He does have a left forearm fistula in preparation for dialysis however he is not yet started dialysis. He did have lipid labs performed on 01/30/2018. His cholesterol is 145 with an LDL of 81 and an HDL of 35 and a triglyceride level of 147. His AST and ALT appear to be within the normal range. Intake Vital Signs02/20/18 Height 5 ft 6 in 02/20/18 Weight: 250 lb 02/20/18 Body Mass Index (BMI) 40.3 02/20/18 Blood Pressure 100/60 Intake Visit Reasons: 9 M FU Allergies JAMEEL Inhibitors Allergy (Verified 02/20/18 16:05) Unknown doxazosin mesylate [From Cardura] Allergy (Verified 02/20/18 16:05) Hives fosinopril sodium [From Monopril] Allergy (Verified 02/20/18 16:05) Hives lisinopril Allergy (Verified 02/20/18 16:05) Hives morphine Allergy (Verified 02/20/18 16:05) Other ibuprofen Adverse Reaction (Unknown, Verified 02/20/18 16:05) Unknown Medications Aspirin [Aspirin, Baby] 81 mg PO DAILY@0800 04/01/14 [History Confirmed 02/20/18] Finasteride [Proscar] 5 mg PO DAILY 04/01/14 [History Confirmed 02/20/18] Nitroglycerin [Nitrostat] 0.4 mg SUBLINGUAL Q5M PRN 02/01/15 [History Confirmed 02/20/18] clopidogrel 75 mg tablet 75 mg PO DAILY #90 tab 06/12/17 [Rx Confirmed 02/20/18] pravastatin 20 mg tablet 20 mg PO QHS #90 tab 08/08/17 [Rx Confirmed 02/20/18] cholecalciferol (vitamin D3) 50,000 unit capsule 50,000 unit PO QWEEK 09/13/17 [History Confirmed 02/20/18] citalopram 20 mg tablet 20 mg PO QDAY 09/13/17 [History Confirmed 02/20/18] donepezil 5 mg tablet 5 mg PO QDAY 09/13/17 [History Confirmed 02/20/18] levothyroxine 25 mcg tablet 50 mcg PO DAILY tab 09/13/17 [History Confirmed 02/20/18] potassium chloride ER 20 mEq tablet,extended release 20 meq PO DAILY tab 01/17/18 [History Confirmed 02/20/18] terazosin 5 mg capsule 5 mg PO DAILY 01/17/18 [History Confirmed 02/20/18] acetaminophen 325 mg capsule 650 mg PO Q6H PRN cap 02/20/18 [History Confirmed 02/20/18] atenolol 50 mg tablet 50 mg PO BID tab 02/20/18 [History Confirmed 02/20/18] bisacodyl 10 mg rectal suppository 10 mg RC DAILY PRN 02/20/18 [History Confirmed 02/20/18] furosemide 80 mg tablet 40 mg PO BID tab 02/20/18 [History Confirmed 02/20/18] magnesium hydroxide 400 mg/5 mL oral suspension 30 ml PO DAILY PRN ml 02/20/18 [History Confirmed 02/20/18] metolazone 5 mg tablet 5 mg PO DAILY 02/20/18 [History Confirmed 02/20/18] [facility] Medical History Fatigue (Chronic) Abnormal electrocardiogram (Chronic) Long-term use of high-risk medication (Chronic) BMI 40.0-44.9, adult (Chronic) Chest pain on exertion (Chronic) Angina pectoris (Chronic) Pulmonary hypertension (Chronic) ALY (obstructive sleep apnea) (Chronic) Abnormal nuclear stress test (Chronic) Diastolic heart failure (Chronic) Sinus bradycardia (Chronic) Atherosclerosis of 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 (Chronic) Shortness of breath (Chronic) Atherosclerosis of 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 (Acute) Hypertension (Chronic) Arthritis (Chronic) Benign essential hypertension (Chronic) Benign prostatic hypertrophy without lower urinary tract symptoms (Chronic) Chronic kidney disease (Chronic) Coronary artery disease (Chronic) Gastroesophageal reflux disease (Chronic) Hyperlipidemia (Chronic) Normochromic normocytic anemia (Chronic) Chronic renal failure, stage 3 (moderate) (Chronic) Chest pain (Acute) Hypokalemia (Acute) Acute renal insufficiency (Acute) Surgical History 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 (Acute) Status post right partial knee replacement (Acute) History of bilateral hip arthroplasty (Acute) History of angioplasty (Chronic) S/P peripheral artery angioplasty (Acute) history fistulogram (Acute 07/27/17) Family History Father Hypertension Cancer Brother CAD (coronary artery disease) Mother Hypertension Sister Hypertension Son Atrial fibrillation Social History Smoking Status: Former smoker second hand exposure: No alcohol intake: never substance use type: does not use caffeine: No what type of physical activity do you participate in: none ROS Const Const: Negative for fatigue, weakness, weight gain, weight loss, frequent falls or excessive sweating Eyes Eyes: Negative for change in vision, blurry vision or transient loss of vision ENT ENT: Positive for balance problems (ambulates with a walker); negative for dizziness Cardio Chest Pain: No Edema: Bilateral (jameel bandages to bilat LE) Muscle aches with walking: None Resp Respiratory: Positive for SOB with activity (baseline); negative for SOB at rest GI GI: Negative vomiting or vomiting blood/hematemesis : Negative for hematuria Musc Musc: Positive for balance problems (ambulates with a walker); negative for muscle aches/ myalgia, muscle weakness or joint pain Skin Skin: Negative non-healing lesions or rash Neuro Neuro: Negative for weakness, blurry vision, dizziness, lightheadedness, frequent falls or orthostatic symptoms Adelso Hematologic/Lymphatic: Negative for easy bleeding Endo Endo: Negative for fatigue or excessive sweating Psych Psych: Negative for anxiety or depression Allergy Allergy/Immunology: Negative for hives, Negative for rash Cardiology Exam Const Appearance: cooperative, healthy appearing, comfortable, no acute distress, well developed, well groomed and other (examined in the wheelchair) Nutritional Appearance: overweight Orientation: alert, awake and oriented x3 Head Head: normal to inspection, normocephalic and atraumatic Ears: hearing grossly normal bilaterally Nose: external nose normal Face and Sinus: face symmetric Mouth: oral mucosae normal Eyes Eyelids: eyelids normal Conjunctivae: conjunctivae normal Pupils: PERRL EOM: EOM intact bilaterally Neck Neck: no JVD and normal visual inspection Carotids: normal carotid upstroke Chest Chest inspection: normal inspection of the chest, normal respiratory effort and symmetric chest movement Auscultation: Bilateral: Clear to Auscultation Cardio Rate: regular rate Rhythm: regular rhythm Heart sounds: S1 normal and S2 normal; negative rub or gallop GI GI: normal to inspection, bowel sounds present and soft Neuro General: alert, awake, oriented x3 and moves all extremities Skin Skin: no rashes or lesions noted Extremities Pulses: Normal: Right Posterior Tibial Pulse, Left Posterior Tibial Pulse, Right Radial Pulse, Left Radial Pulse Lower Extremity Edema: +1: Bilateral (compression stockiings present) Psych Psychological: normal affect Supplemental Info Transthoracic echocardiogram: 06/27/2016 Interpretation Summary The study was technically difficult. Left ventricular systolic function is normal. The estimated ejection fraction is 60 %. Mild concentric left ventricular hypertrophy. The left atrium is mildly enlarged. There is mild mitral annular calcification. Extension of the mitral annular calcification onto the posterior mitral valve leaflet. Mild (1+) mitral valve insufficiency. Mild tricuspid valve insufficiency. Mild focal aortic valve thickening. Mild (1+) pulmonic valve insufficiency. Calcified aortic root. Right ventricular systolic pressure estimated to be 30 mmHg. Stress test: 07/11/2016 EXERCISE TOLERANCE TEST: The patient underwent pharmacologic (regadenoson) evaluation with a peak heart rate of 82 beats per minute (57% predicted maximum heart rate) and peak blood pressure of 162/98 mmHg. The baseline ECG demonstrated sinus bradycardia. There was nonspecific ST and T-wave change. The peak pharmacologic ECG demonstrated continued nonspecific ST and T-wave change. There were no cardiac dysrhythmias pretest, during pharmacologic infusion, or recovery. There was no report of chest discomfort during pharmacologic infusion or recovery. The examination was discontinued secondary to completion of protocol. IMPRESSION: 1. Pharmacologic (regadenoson) evaluation. 2. Peak pharmacologic ECG with continued nonspecific ST and T-wave change. 3. Nuclear images pending. MYOCARDIAL PERFUSION IMAGING STUDY: TECHNIQUE: The patient was injected with 14.6 mCi of Tc99m Cardiolite and subsequently rest SPECT Cardiolite nuclear imaging was obtained in the horizontal long, vertical long, and short axes views. The patient underwent pharmacologic (regadenoson) evaluation with a peak heart rate of 82 beats per minute (57% predicted maximum heart rate) and a peak blood pressure of 162/98 mmHg. The patient was injected with 44.7 mCi of Tc99m Cardiolite and subsequently stress SPECT Cardiolite nuclear imaging was obtained in the horizontal long, vertical long, and short axes views. A gated Cardiolite study at peak stress was obtained. INTERPRETATION: Rest and stress SPECT Cardiolite nuclear imaging status post realignment, normalization, and attenuation correction appears to demonstrate relative uniform tracer uptake at rest. Status post stress, there is a small area of diminished tracer uptake in the mid inferior segments. There are similar type findings on the resting and stress polar map images. There is notation of diminished end systolic thickening and brightening in the aforementioned areas. The gated Cardiolite study demonstrates diminished myocardial thickening and inward wall motion in the aforementioned areas. The reported LVEF is 55%. The aforementioned changes are suggestive of an area of stress- induced myocardial ischemia involving portions of the mid inferior segments, although an element of shifting soft tissue attenuation/artifact cannot necessarily be excluded. IMPRESSION: 1. Rest and stress SPECT Cardiolite nuclear imaging demonstrate myocardial perfusion changes suggestive of an area of stress-induced myocardial ischemia involving the mid inferior segments, although an element of shifting soft tissue attenuation/artifact cannot necessarily be excluded. 2. The gated Cardiolite study reports an LVEF of 55%. Cardiac catheterization: 07/18/2016 Left main coronary artery patent LAD: Stent patent LCx: Patent RCA: Proximal stent patent Right posterior lateral branch: Small vessel: 95% stenosis Please see official report PCI: 03/11/2015: [facility]: Successful stenting of the 75% stenosis in the proximal to mid right coronary artery. (Drug Eluting) 85% stenosis in the mid to distal third right posterolateral artery. Unsuccessful PCI of mid 2.[address] branch despite attempts with BMW and Whisper wire. Unable to cannulate with wire despite balloon backup. Procedure aborted given small vessel and risk of closure with hydrophillic wire. Assessment AND Plan 1. Atherosclerosis of 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 I25.10 PCI/YESENIA to LAD and POBA 02/10/2015; PCI/YESENIA to mid RCA, unsuccessful PCI to PL branch 03/11/2015 Plan At the present time the patient appears to be doing well with no acute symptoms or adverse events. He is going to continue his current medical management. He will be asked to have a future outpatient follow-up visit. 2. History of angioplasty Z98.January Plan He does have a history of PCI as noted above. Again he will continue his current medical therapy and follow-up. 3. Hyperlipidemia E78.5 Plan His lipid labs were reviewed. He will have future follow- up fasting lipid and hepatic profile Orders Orders: 4. Essential hypertension I10 Plan His blood pressure appears to be reasonably well-controlled today. He will continue medical management and follow-up 5. Long-term use of high-risk medication Z79.899 Plan He will have future outpatient follow-up, laboratory studies, etc. based upon being on medications that he is currently on. Plan Detail Additional Comments Thank you for allowing me to participate in the care of your patient. Please don't hesitate to call if any issues arise. This note was generated using a voice recognition system and there may be incorrect words, spelling or punctuation that were not noted when reviewing the office note prior to saving. Follow Up 6 Months (PFM) Coding Level of Care Code Off vis,est,level 4 Diagnoses Atherosclerosis of 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 I25.10 History of angioplasty Z98.62 Hyperlipidemia E78.5 Hyperlipidemia type: unspecified hyperlipidemia Essential hypertension I10 Hypertension type: essential hypertension Long-term use of high-risk medication Z79.899 Coding Level of Care Code Off vis,est,level 4 Diagnoses Atherosclerosis of 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 I25.10 History of angioplasty Z98.62 Hyperlipidemia E78.5 Hyperlipidemia type: unspecified hyperlipidemia Essential hypertension I10 Hypertension type: essential hypertension Long-term use of high-risk medication Z79.899 02/20/18 1824 <Electronically signed by Norris Pastrana MD> Date Norris Pastrana MD Cosigner Signature: Date (if applicable) CC: Justice Britt MD CBC-COMPLETE BLOOD CNT Collected: 02/20/2018 Status: F Source: [place] NO DIFF 8:10 AM [facility] Order Comment: ROOM 165 TYPE CODE TESTS RESULT OUT OF RANGE REFERENCE UNITS LAB L100.1000 4.4-11.0 K/mm3 Normal WBC 8.3 LAB L100.1200 4.6-6.2 M/mm3 Low RBC 3.97 LAB L100.1300 13.0-16.5 g/dl Low HGB 11.4 LAB L100.1400 40-54 % Low HCT 35.3 LAB L100.1500 80-94 fL Normal MCV 88.9 LAB L100.1600 27.0-32.0 pg Normal MCH 28.7 LAB L100.1700 32-36 g/gl Normal MCHC 32.3 LAB L100.1810 11.6-14.6 % Normal RDW CV 13.5 LAB L100.1820 35.1-43.9 fl Normal RDW SD 43.0 LAB L100.1900 150-450 K/mm3 Normal PLT 247 LAB L100.2000 6.2-12.0 fl Normal MPV 11.0 Performed By: #### L100.0500 #### [facility] [address] [place], [place], [id number] RENAL PROFILE Collected: 02/20/2018 Status: F Source: [place] 8:10 AM [facility] Order Comment: ROOM 165 TYPE CODE TESTS RESULT OUT OF RANGE REFERENCE UNITS LAB L501.0100 74-106 mg/dL Normal GLU 104 Result Comment: Fasting Glucose result from 100 to 125 mg/dL suggests IMPAIRED HOMEOSTASIS per A.D.A. criteria. Please note revised GLUCOSE reference range effective 2017. LAB L501.1000 7-18 mg/dL High BUN 68 LAB L501.1100 0.70-1.30 mg/dL High CREAT,SERUM 4.27 Result Comment: The validity of the calculated GFR AND GFRAA in patients over 70 years has not been determined. Clinical correlation is essential. LAB L501.1110 >60 mL/min Low EST GFR 14 Result Comment: Non- GFR Calc LAB L501.1115 >60 mL/min Low EST GFR - AA 17 Result Comment: GFR Calc LAB L501.1300 10-20 RATIO Normal BUN/CRE 15.9 LAB L501.1800 3.2-5.0 g/dL Low ALB 2.9 LAB L501.2200 8.5-10.1 mg/dL CA Normal 8.5 LAB L501.2300 2.5-4.9 mg/dL High PHOS 5.0 LAB L501.5300 136-145 mmol/L NA Normal 137 LAB L501.5600 3.5-5.1 mmol/L Low K alert 2.7 Result Comment: Critical Result(s) Called at: 10:03:24 02/20/2018 by: Jeane Mahmood to [facility] LAB L501.5900 98-107 mmol/L Low CL 90 LAB L501.6100 21.0-32.0 mmol/L High CO2 37.0 Performed By: #### L500.0590, L503.4915, L503.6150, L503.6550 #### [facility] [address] [place], [address] IRON BINDING Collected: 02/20/2018 Status: F Source: [place] BOX,TOTAL 8:10 AM [facility] Order Comment: ROOM 165 TYPE CODE TESTS RESULT OUT OF RANGE REFERENCE UNITS LAB L503.6075 250-450 ug/dL Normal TIBC 323 Performed By: #### L500.3600, L503.6075, L503.6150, L503.6550 #### [facility] [address] [place], [address] IRON Collected: 02/20/2018 Status: F Source: [place] 8:10 AM [facility] Order Comment: ROOM 165 TYPE CODE TESTS RESULT OUT OF RANGE REFERENCE UNITS LAB L503.6150 65-175 ug/dL Low IRON 43 Performed By: #### L500.3600, L503.6075, L503.6150, L503.6550 #### [facility] [address] [place], [address] FERRITIN Collected: 02/20/2018 Status: F Source: [place] 8:10 AM [facility] Order Comment: ROOM 165 TYPE CODE TESTS RESULT OUT OF RANGE REFERENCE UNITS LAB L503.6550 26-388 ng/mL Normal FERRITIN 77 Performed By: #### L500.3600, L503.6075, L503.6150, L503.6550 #### [facility] [address] [place], [address] PTHIN Collected: 02/20/2018 Status: F Source: [place] 8:10 AM [facility] Order Comment: ROOM 165 TYPE CODE TESTS RESULT OUT OF RANGE REFERENCE UNITS LAB L509.1000 18.4-80.1 pg/mL High PTHIN 268.6 Performed By: #### L509.1000 #### [facility] [address] [place], [address] SURGERY VISIT REPORT Observed: 02/12/2018 Status: F Source: [place] 1:04 PM [facility] [address] [place], [place] [id number] OFFICE VISIT Date of Service: 02/12/18 MR#: [id number] Acct: [id number] Name: Arianna Guillermo Rep #: [id number] : 1940 Provider: Liam Brown MD Age/Sex: 77/M Location: [facility] Status: Signed Intake Intake Visit Reasons: 2 month f/u fistula 12/04 Chief Complaint: post fistulogram Treating Machine Operator Required: No Is patient in pain?: No Allergies JAMEEL Inhibitors Allergy (Verified 02/12/18 12:48) Unknown doxazosin mesylate [From Cardura] Allergy (Verified 02/12/18 12:48) Hives fosinopril sodium [From Monopril] Allergy (Verified 02/12/18 12:48) Hives lisinopril Allergy (Verified 02/12/18 12:48) Hives morphine Allergy (Verified 02/12/18 12:48) Other Medications Aspirin [Aspirin, Baby] 81 mg PO DAILY@0800 04/01/14 [History Confirmed 02/12/18] Finasteride [Proscar] 5 mg PO DAILY 04/01/14 [History Confirmed 02/12/18] Nitroglycerin [Nitrostat] 0.4 mg SUBLINGUAL Q5M PRN 02/01/15 [History Confirmed 02/12/18] clopidogrel 75 mg tablet 75 mg PO DAILY #90 tab 06/12/17 [Rx Confirmed 02/12/18] pravastatin 20 mg tablet 20 mg PO QHS #90 tab 08/08/17 [Rx Confirmed 02/12/18] ipratropium bromide 0.02 % solution for inhalation 1.25 ml INHALATION Q8H PRN 08/30/17 [History Confirmed 02/12/18] atenolol 50 mg tablet 50 mg PO QDAY tab 09/13/17 [History Confirmed 02/12/18] cholecalciferol (vitamin D3) 50,000 unit capsule 50,000 unit PO QWEEK 09/13/17 [History Confirmed 02/12/18] citalopram 20 mg tablet 20 mg PO QDAY 09/13/17 [History Confirmed 02/12/18] donepezil 5 mg tablet 5 mg PO QDAY 09/13/17 [History Confirmed 02/12/18] febuxostat 80 mg tablet 80 mg PO QDAY 09/13/17 [History Confirmed 02/12/18] levothyroxine 25 mcg tablet 50 mcg PO DAILY tab 09/13/17 [History Confirmed 02/12/18] calcitriol 0.25 mcg capsule 0.25 mcg PO DAILY cap 01/17/18 [History Confirmed 02/12/18] furosemide 80 mg tablet 80 mg PO BID tab 01/17/18 [History Confirmed 02/12/18] potassium chloride ER 20 mEq tablet,extended release 20 meq PO DAILY tab 01/17/18 [History Confirmed 02/12/18] terazosin 5 mg capsule 5 mg PO DAILY 01/17/18 [History Confirmed 02/12/18] Subjective Details: 77-year-old gentleman. On May 10, 2017 I created for him a transposition left forearm cephalic vein to radial artery arteriovenous fistula. On July 27, 2017 I performed a 5 x 80 mm ever cross angioplasty. On December 04, 2017 I performed a fistulogram with a 6 x 80 mm ever cross angioplasty and a 6 x 20 mm [employer] angioplasty. The angioplasty was performed within a couple centimeters of the anastomosis in the proximal fistula and in the mid fistula. The patient is not yet on hemodialysis. He has no particular complaints. Objective Details: Left forearm transposed cephalic vein to radial artery AV fistula with a pulse, thrill, bruit. I would gauge the thrill as moderate. He appears to have an audible bruit throughout the cardiac cycle. I performed a ultrasound inspection of the fistula. I am not detecting any areas of high-grade stenosis. In the mid to more distal fistula which would be in the proximal forearm there appeared to be some vein wall thickening however this did not appear to be critical Assessment AND Plan Problems 1. Problem with dialysis access, subsequent encounter T82.606D Plan The patient appears to have an adequately functioning left forearm transposed cephalic vein to radial artery arteriovenous fistula. He is not yet on hemodialysis. His son reminds me that the patient does not do well under sedative. They are requesting no future sedative procedures if at all possible. This would make keeping this fistula functioning all the more important. I anticipate seeing him back to the office at 6 weeks time for ongoing care as the patient is not yet on hemodialysis. Cc: Dr. Luann Brown M.D., F.A.C.S. Coding Level of Care Code Off vis,est,level 2 Diagnoses Problem with dialysis access, subsequent encounter T82.898D Encounter type: subsequent encounter 02/12/18 1304 <Electronically signed by Liam Brown MD> Date Liam Brown MD Cosigner Signature: Date (if applicable) CC: Luann Lang DO BASIC METABOLIC Collected: 02/05/2018 Status: F Source: [place]A PROFILE (BMP) 5:45 AM [facility] Order Comment: ROOM 165 TYPE CODE TESTS RESULT OUT OF RANGE REFERENCE UNITS LAB L501.0100 74-106 mg/dL Normal GLU 99 Result Comment: Please note revised GLUCOSE reference range effective 2017. LAB L501.1000 7-18 mg/dL High BUN 47 LAB L501.1100 0.70-1.30 mg/dL High CREAT,SERUM 3.49 Result Comment: The validity of the calculated GFR AND GFRAA in patients over 70 years has not been determined. Clinical correlation is essential. LAB L501.1110 >60 mL/min Low EST GFR 18 Result Comment: Non- GFR Calc LAB L501.1115 >60 mL/min Low EST GFR - AA 22 Result Comment: GFR Calc LAB L501.1300 10-20 RATIO Normal BUN/CRE 13.5 LAB L501.2200 8.5-10.1 mg/dL Low CA 8.2 LAB L501.5300 136-145 mmol/L NA Normal 143 LAB L501.5600 3.5-5.1 mmol/L K Normal 4.0 LAB L501.5900 98-107 mmol/L CL Normal 107 LAB L501.6100 21.0-32.0 mmol/L Normal CO2 28.0 LAB L501.6200 5-15 Normal GAP 8 Performed By: #### L500.2500 #### [facility] [address] [place], [place], [address] CBC W/DIFF, AUTOMATED Collected: 01/30/2018 Status: F Source: [place] 6:20 AM [facility] Order Comment: 165 TYPE CODE TESTS RESULT OUT OF RANGE REFERENCE UNITS LAB L100.1000 4.4-11.0 K/mm3 Normal WBC 6.9 LAB L100.1200 4.6-6.2 M/mm3 Low RBC 4.04 LAB L100.1300 13.0-16.5 g/dl Low HGB 11.5 LAB L100.1400 40-54 % Low HCT 36.1 LAB L100.1500 80-94 fL Normal MCV 89.4 LAB L100.1600 27.0-32.0 pg Normal MCH 28.5 LAB L100.1700 32-36 g/gl Low MCHC 31.9 LAB L100.1810 11.6-14.6 % Normal RDW CV 14.1 LAB L100.1820 35.1-43.9 fl High RDW SD 46.3 LAB L100.1900 150-450 K/mm3 Normal PLT 201 LAB L100.2000 6.2-12.0 fl Normal MPV 11.5 LAB L100.2100 47-70 % Normal NEUT% 67.6 LAB L100.2200 19-41 % Normal LY% 21.3 LAB L100.2300 0-10 % Normal MONO% 7.3 LAB L100.2400 0-5 % Normal EO% 3.5 LAB L100.2500 0-1 % Normal BASO% 0.3 LAB L100.2550 0.0-0.9 % Normal IM GRAN % 0.000 Result Comment: IG% - Immature Granulocytes (promyelocytes, myelocytes and metamyelocytes) > 1% indicates that a LEFT SHIFT is Present. LAB L100.2620 2.0-7.7 X10 3/uL Normal Absolute Neut 4.6 LAB L100.2720 0.83-4.51 X10 3/ul Normal Absolute Lymph 1.46 Performed By: #### L100.0100 #### [facility] [address] [place], [address] COMPREHENSIVE METABOLIC Collected: 01/30/2018 Status: F Source: [place] PROFIL 6:20 AM [facility] Order Comment: 165 TYPE CODE TESTS RESULT OUT OF RANGE REFERENCE UNITS LAB L501.0100 74-106 mg/dL Normal GLU 106 Result Comment: Fasting Glucose result from 100 to 125 mg/dL suggests IMPAIRED HOMEOSTASIS per A.D.A. criteria. Please note revised GLUCOSE reference range effective 2017. LAB L501.1000 7-18 mg/dL High BUN 46 LAB L501.1100 0.70-1.30 mg/dL High CREAT,SERUM 3.67 Result Comment: The validity of the calculated GFR AND GFRAA in patients over 70 years has not been determined. Clinical correlation is essential. LAB L501.1110 >60 mL/min Low EST GFR 17 Result Comment: Non- GFR Calc LAB L501.1115 >60 mL/min Low EST GFR - AA 21 Result Comment: GFR Calc LAB L501.1300 10-20 RATIO Normal BUN/CRE 12.5 LAB L501.1500 6.4-8.2 g/dL Low T PROT 6.0 LAB L501.1800 3.2-5.0 g/dL Low ALB 3.0 LAB L501.1950 2.2-4.2 g/dL Normal GLOB 3.0 LAB L501.2000 0.9-2.4 RATIO Normal A/G 1.0 LAB L501.2200 8.5-10.1 mg/dL Low CA 8.1 LAB L501.4100 15-37 U/L Low AST 13 LAB L501.4305 45-117 U/L Normal ALK P 81 LAB L501.4405 16-61 U/L Normal ALT 16 LAB L501.4600 0.20-1.00 mg/dL T Normal BILI 0.40 LAB L501.5300 136-145 mmol/L NA Normal 145 LAB L501.5600 3.5-5.1 mmol/L Low K 2.8 LAB L501.5900 98-107 mmol/L CL Normal 104 LAB L501.6100 21.0-32.0 mmol/L Normal CO2 30.0 LAB L501.6200 5-15 Normal GAP 11 Performed By: #### L500.4050, L500.4100, L501.9520 #### [facility] [address] [place], [address] LIPID PROFILE Collected: 01/30/2018 Status: F Source: [place] 6:20 AM [facility] Order Comment: 165 TYPE CODE TESTS RESULT OUT OF RANGE REFERENCE UNITS LAB L501.4900 200 mg/dL Normal CHOL 145 Result Comment: <200 mg/dL Desirable 200-240 mg/dL Borderline >240 mg/dL High Risk LAB L501.5000 mg/dL Normal TRIG 147 Result Comment: The drugs N-Acetylcysteine and Metamizole may falsely depress this assay. Serum Triglycerides Reference Interval Normal <150 mg/dL Borderline high 150 - 199 mg/dL High 200 - 499 mg/dL Very High > or = 500 mg/dL LAB L501.6400 mg/dL Low HDL 35 Result Comment: The drugs N-Acetylcysteine and Metamizole may falsely depress this assay. Reference Range HDL <40 mg/dL Low HDL Cholesterol HDL >or= 60 mg/dL High HDL Cholesterol LAB L501.6500 0-130 mg/dL Normal LDL 81 LAB L501.6600 5-40 mg/dL Normal VLDL 29 Performed By: #### L500.4050, L500.4100, L501.9520 #### [facility] [address] [place], [address] THYROID STIM HORMONE Collected: 01/30/2018 Status: F Source: ANDREA (TSH) 6:20 AM [facility] Order Comment: 165 TYPE CODE TESTS RESULT OUT OF RANGE REFERENCE UNITS LAB L501.9520 0.358-3.74 uIU/mL Normal TSH 2.90 Performed By: #### L500.4050, L500.4100, L501.9520 #### [facility] [address] [place], [address] VITAMIN D,25 HYDROXY Collected: 01/30/2018 Status: F Source: [place] 6:20 AM [facility] Order Comment: 165 TYPE CODE TESTS RESULT OUT OF RANGE REFERENCE UNITS LAB L506.1000 29.95-100.01 ng/mL Normal Vitamin D 47.4 25-OH Result Comment: Vitamin D 25(OH) Status Range Deficiency <20 ng/mL (50nmol/L) Insuffciency 20 - 30 ng/mL (50 - 75 nmol/L) Sufficiency 30 - 100 ng/mL (75 - 250 nmol/L) Toxicity >100 ng/mL (>250 nmol/L) Performed By: #### L506.1000 #### [facility] [address] [place], [address] RENAL PROFILE Collected: 01/10/2018 Status: F Source: [place] 2:51 PM [facility] TYPE CODE TESTS RESULT OUT OF RANGE REFERENCE UNITS LAB L501.0100 74-106 mg/dL High GLU 143 Result Comment: Fasting Glucose result greater than or equal to 126 mg/dL suggests DIABETES MELLITUS per A.D.A. criteria. Please note revised GLUCOSE reference range effective 2017. LAB L501.1000 7-18 mg/dL High BUN 43 LAB L501.1100 0.70-1.30 mg/dL High CREAT,SERUM 3.38 Result Comment: The validity of the calculated GFR AND GFRAA in patients over 70 years has not been determined. Clinical correlation is essential. LAB L501.1110 >60 mL/min Low EST GFR 19 Result Comment: Non- GFR Calc LAB L501.1115 >60 mL/min Low EST GFR - AA 23 Result Comment: GFR Calc LAB L501.1300 10-20 RATIO Normal BUN/CRE 12.7 LAB L501.1800 3.2-5.0 g/dL Low ALB 2.9 LAB L501.2200 8.5-10.1 mg/dL Low CA 7.7 LAB L501.2300 2.5-4.9 mg/dL Normal PHOS 4.1 LAB L501.5300 136-145 mmol/L NA Normal 144 LAB L501.5600 3.5-5.1 mmol/L K Normal 3.5 LAB L501.5900 98-107 mmol/L High CL 108 LAB L501.6100 21.0-32.0 mmol/L Normal CO2 25.0 Performed By: #### L500.3600 #### [facility] [address] [place], [place], [address] CBC-COMPLETE BLOOD CNT Collected: 01/10/2018 Status: F Source: [place] NO DIFF 2:51 PM [facility] TYPE CODE TESTS RESULT OUT OF RANGE REFERENCE UNITS LAB L100.1000 4.4-11.0 K/mm3 Normal WBC 7.1 LAB L100.1200 4.6-6.2 M/mm3 Low RBC 3.65 LAB L100.1300 13.0-16.5 g/dl Low HGB 10.7 LAB L100.1400 40-54 % Low HCT 33.1 LAB L100.1500 80-94 fL Normal MCV 90.7 LAB L100.1600 27.0-32.0 pg Normal MCH 29.3 LAB L100.1700 32-36 g/gl Normal MCHC 32.3 LAB L100.1810 11.6-14.6 % High RDW CV 14.7 LAB L100.1820 35.1-43.9 fl High RDW SD 47.4 LAB L100.1900 150-450 K/mm3 Low PLT 146 LAB L100.2000 6.2-12.0 fl High MPV 12.1 Performed By: #### L100.0500 #### [facility] [address] [place], [place], [address] PTHIN Collected: 01/10/2018 Status: F Source: [place]A 2:51 PM [facility] TYPE CODE TESTS RESULT OUT OF RANGE REFERENCE UNITS LAB L509.1000 18.4-80.1 pg/mL High PTHIN 244.1 Performed By: #### L509.1000 #### [facility] [address] [place], [address] CBC W/DIFF, AUTOMATED Collected: 12/21/2017 Status: F Source: [place]A 12:03 PM [facility] TYPE CODE TESTS RESULT OUT OF RANGE REFERENCE UNITS LAB L100.1000 4.4-11.0 K/mm3 Normal WBC 6.6 LAB L100.1200 4.6-6.2 M/mm3 Low RBC 4.02 LAB L100.1300 13.0-16.5 g/dl Low HGB 11.5 LAB L100.1400 40-54 % Low HCT 36.1 LAB L100.1500 80-94 fL Normal MCV 89.8 LAB L100.1600 27.0-32.0 pg Normal MCH 28.6 LAB L100.1700 32-36 g/gl Low MCHC 31.9 LAB L100.1810 11.6-14.6 % High RDW CV 14.9 LAB L100.1820 35.1-43.9 fl High RDW SD 48.8 LAB L100.1900 150-450 K/mm3 Normal PLT 218 LAB L100.2000 6.2-12.0 fl Normal MPV 10.8 LAB L100.2100 47-70 % Normal NEUT% 67.8 LAB L100.2200 19-41 % Low LY% 18.2 LAB L100.2300 0-10 % High MONO% 10.2 LAB L100.2400 0-5 % Normal EO% 3.5 LAB L100.2500 0-1 % Normal BASO% 0.3 LAB L100.2550 0.0-0.9 % Normal IM GRAN % 0.000 Result Comment: IG% - Immature Granulocytes (promyelocytes, myelocytes and metamyelocytes) > 1% indicates that a LEFT SHIFT is Present. LAB L100.2620 2.0-7.7 X10 3/uL Normal Absolute Neut 4.5 LAB L100.2720 0.83-4.51 X10 3/ul Normal Absolute Lymph 1.20 Performed By: #### L100.0100 #### [facility] [address] [place], [address] COMPREHENSIVE METABOLIC Collected: 12/21/2017 Status: F Source: [facility] 12:03 PM [facility] TYPE CODE TESTS RESULT OUT OF RANGE REFERENCE UNITS LAB L501.0100 74-106 mg/dL Normal GLU 103 Result Comment: Fasting Glucose result from 100 to 125 mg/dL suggests IMPAIRED HOMEOSTASIS per A.D.A. criteria. Please note revised GLUCOSE reference range effective 2017. LAB L501.1000 7-18 mg/dL High BUN 38 LAB L501.1100 0.70-1.30 mg/dL High CREAT,SERUM 3.24 Result Comment: The validity of the calculated GFR AND GFRAA in patients over 70 years has not been determined. Clinical correlation is essential. LAB L501.1110 >60 mL/min Low EST GFR 20 Result Comment: Non- GFR Calc LAB L501.1115 >60 mL/min Low EST GFR - AA 24 Result Comment: GFR Calc LAB L501.1300 10-20 RATIO Normal BUN/CRE 11.7 LAB L501.1500 6.4-8.2 g/dL Low T PROT 6.0 LAB L501.1800 3.2-5.0 g/dL Low ALB 3.0 LAB L501.1950 2.2-4.2 g/dL Normal GLOB 3.0 LAB L501.2000 0.9-2.4 RATIO Normal A/G 1.0 LAB L501.2200 8.5-10.1 mg/dL Low CA 8.1 LAB L501.4100 15-37 U/L Normal AST 16 LAB L501.4305 45-117 U/L Normal ALK P 65 LAB L501.4405 16-61 U/L Normal ALT 28 LAB L501.4600 0.20-1.00 mg/dL T Normal BILI 0.30 LAB L501.5300 136-145 mmol/L NA Normal 142 LAB L501.5600 3.5-5.1 mmol/L K Normal 3.9 LAB L501.5900 98-107 mmol/L High CL 108 LAB L501.6100 21.0-32.0 mmol/L Normal CO2 25.0 LAB L501.6200 5-15 Normal GAP 9 Performed By: #### L500.4050, L501.1400, L501.9520 #### [facility] [address] [place], [place], [id number] URIC ACID Collected: 12/21/2017 Status: F Source: [place] 12:03 PM [facility] TYPE CODE TESTS RESULT OUT OF RANGE REFERENCE UNITS LAB L501.1400 3.5-7.2 mg/dL Normal URIC 4.5 Result Comment: The drugs N-Acetylcysteine and Metamizole may falsely depress this assay. Performed By: #### L500.4050, L501.1400, L501.9520 #### [facility] [address] [place], [place], [address] THYROID STIM HORMONE Collected: 12/21/2017 Status: F Source: ANDREA (TSH) 12:03 PM [facility] TYPE CODE TESTS RESULT OUT OF RANGE REFERENCE UNITS LAB L501.9520 0.358-3.74 uIU/mL High TSH 4.46 Performed By: #### L500.4050, L501.1400, L501.9520 #### [facility] [address] [place], [address] VITAMIN D,25 HYDROXY Collected: 12/21/2017 Status: F Source: [place] 12:03 PM [facility] TYPE CODE TESTS RESULT OUT OF REFERENCE UNITS RANGE LAB L506.1000 29.95-100.01 ng/mL Low Vitamin D 28.0 25-OH Result Comment: Vitamin D 25(OH) Status Range Deficiency <20 ng/mL (50nmol/L) Insuffciency 20 - 30 ng/mL (50 - 75 nmol/L) Sufficiency 30 - 100 ng/mL (75 - 250 nmol/L) Toxicity >100 ng/mL (>250 nmol/L) Performed By: #### L506.1000 #### [facility] [address], [address] SURGERY VISIT REPORT Observed: 12/11/2017 Status: F Source: [place] 2:26 PM [facility] [address] [place] [address] OFFICE VISIT Date of Service: 12/11/17 MR#: [id number] Acct: [id number] Name: JONOJORJEARIANNA Nohemy Rep #: [id number] : 1940 Provider: Jaylin New PA-C Age/Sex: 77/M Location: [facility] Status: Signed Intake Intake Visit Reasons: Suture Removal Fistula 12/04 RC Chief Complaint: post fistulogram Treating Machine Operator Required: No Is patient in pain?: No Allergies JAMEEL Inhibitors Allergy (Verified 12/11/17 12:30) Unknown doxazosin mesylate [From Cardura] Allergy (Verified 12/11/17 12:30) Hives fosinopril sodium [From Monopril] Allergy (Verified 12/11/17 12:30) Hives lisinopril Allergy (Verified 12/11/17 12:30) Hives morphine Allergy (Verified 12/11/17 12:30) Other Medications Aspirin [Aspirin, Baby] 81 mg PO DAILY@0800 04/01/14 [History Confirmed 12/11/17] Finasteride [Proscar] 5 mg PO DAILY 04/01/14 [History Confirmed 12/11/17] Nitroglycerin [Nitrostat] 0.4 mg SUBLINGUAL Q5M PRN 02/01/15 [History Confirmed 12/11/17] terazosin 1 mg capsule 1 mg PO QDAY cap 05/09/17 [History Confirmed 12/11/17] clopidogrel 75 mg tablet 75 mg PO DAILY #90 tab 06/12/17 [Rx Confirmed 12/11/17] furosemide 20 mg tablet 40 mg PO DAILY tab 07/23/17 [History Confirmed 12/11/17] potassium chloride ER 20 mEq tablet,extended release 20 meq PO TID tab 07/23/17 [History Confirmed 12/11/17] pravastatin 20 mg tablet 20 mg PO QHS #90 tab 08/08/17 [Rx Confirmed 12/11/17] ipratropium bromide 0.02 % solution for inhalation 1.25 ml INHALATION Q8H PRN 08/30/17 [History Confirmed 12/11/17] atenolol 50 mg tablet 50 mg PO QDAY tab 09/13/17 [History Confirmed 12/11/17] cholecalciferol (vitamin D3) 50,000 unit capsule 50,000 unit PO QWEEK 09/13/17 [History Confirmed 12/11/17] citalopram 20 mg tablet 20 mg PO QDAY 09/13/17 [History Confirmed 12/11/17] donepezil 5 mg tablet 5 mg PO QDAY 09/13/17 [History Confirmed 12/11/17] febuxostat 80 mg tablet 80 mg PO QDAY 09/13/17 [History Confirmed 12/11/17] levothyroxine 25 mcg tablet 50 mcg PO DAILY tab 09/13/17 [History Confirmed 12/11/17] PFSH Medical History Fatigue (Chronic) Abnormal electrocardiogram (Chronic) Long-term use of high-risk medication (Chronic) BMI 40.0-44.9, adult (Chronic) Chest pain on exertion (Chronic) Angina pectoris (Chronic) Pulmonary hypertension (Chronic) ALY (obstructive sleep apnea) (Chronic) Abnormal nuclear stress test (Chronic) Diastolic heart failure (Chronic) Sinus bradycardia (Chronic) Atherosclerosis of 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 (Chronic) Shortness of breath (Chronic) Atherosclerosis of 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 (Acute) Hypertension (Chronic) Status post right partial knee replacement (Acute) Arthritis (Chronic) Benign essential hypertension (Chronic) Benign prostatic hypertrophy without lower urinary tract symptoms (Chronic) Chronic kidney disease (Chronic) Coronary artery disease (Chronic) Gastroesophageal reflux disease (Chronic) Hyperlipidemia (Chronic) Normochromic normocytic anemia (Chronic) Chronic renal failure, stage 3 (moderate) (Chronic) Chest pain (Acute) Hypokalemia (Acute) Acute renal insufficiency (Acute) Surgical History 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 (Acute) History of bilateral hip arthroplasty (Acute) History of angioplasty (Chronic) S/P peripheral artery angioplasty (Acute) history fistulogram (Acute 07/27/17) Family History Father Hypertension Cancer Brother CAD (coronary artery disease) Mother Hypertension Sister Hypertension Son Atrial fibrillation Social History Smoking Status: Former smoker second hand exposure: No alcohol intake: never substance use type: does not use caffeine: No what type of physical activity do you participate in: none HPI HPI HPI: ARIANNA GUILLERMO, is a 77 M I am following for chronic renal failure. Dr. Brown performed a carbon dioxide left upper extremity fistulogram with 6 x 80 mm ever cross and 6 x 20 nn conquest angioplasty on 12/04/17. Findings include 2 focal areas of high-grade venous stenosis. Patient tolerated the procedure well. He denies pain/discomfort. He is not currently on dialysis. 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 Exam Const General: cooperative, healthy appearing, comfortable, no acute distress Extrem Other: left forearm fistula- good pulse, bruit and thrill. Sutures were removed and steri-strip was placed. Minimal amount of ecchymosis. Assessment AND Plan Problems 1. Chronic renal failure, stage 4 (severe) N18.4 Plan - Follow-up in [address] Brown Coding Level of Care Code Global Post Op Diagnoses Chronic renal failure, stage 4 (severe) N18.4 12/11/17 1426 <Electronically signed by Jaylin New PA-C> Date Jaylin New PA-C Cosigner Signature: Date (if applicable) CC: OPERATIVE REPORT Observed: 12/05/2017 Status: F Source: [place] 6:18 [facility] REPOSITORY [facility] Medical Records Department [address] [place] [address] Operative Report 12/04/17 1220 MR#: [id number] Acct: [id number] Name: ARIANNA GUILLERMO Rep #: [id number] : 1940 77 From: Liam Brown MD PCP: Nicolas HOWE,Justice García Status: REG [facility] [place] Location: [facility] Problem List (1) Problem with dialysis access Status: Acute Qualifiers: Encounter type: subsequent encounter Qualified Code(s): T82.898D - Other specified complication of vascular prosthetic devices, implants and grafts, subsequent encounter Report of Operation Date of Procedure: 12/04/17 Pre-Operative Diagnosis: Failure to mature left forearm radial to cephalic arteriovenous fistula Post-Operative Diagnosis: 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 The cheek was taken to the special procedures lab. Was placed supine on the table. At his request no sedative was provided. The left upper extremity was sterilely prepped and draped. 2% lidocaine was instilled under ultrasound guidance close to the antecubital space retrograde with flow. Micropuncture needle inserted. Micropuncture wire inserted. 6 Kazakh short sheath dilator inserted. Using an angled Glidewire and 4 Kazakh angled glide cath [place] was gained to the radial artery proximal to the anastomosis. Using 15 cc of carbon dioxide fistulogram was obtained the forearm. This demonstrated 2 areas of high-grade stenosis 1 within approximately 2 cm to the anastomosis and one in the mid forearm. I placed a 6 x 80 mm ever cross balloon over the Glidewire. Balloon angioplasty was performed up to 16 moises of pressure. Completion view after 3 minutes of holding demonstrated recoil. So I then placed a 6 x 20 mm conquest balloon. Balloon angioplasty of each site was performed up to 40 moises of pressure for 3 minutes each. Completion study now demonstrated significant improvement. There was some suggestion of recoil prepped particularly in the mid forearm. At this point I elected not to attempt further treatment. He tolerated the procedure well. The sheath was removed and a U suture of 4-0 nylon was placed. Blood loss was minimal. The hand was viable. There appeared to be an adequate pulse, thrill, bruit within the fistula at the completion. No apparent complications. Escalante gram demonstrates a little of left forearm radial to cephalic arteriovenous fistula. Within a centimeter of the anastomosis and within the mid fistula there are 2 focal areas of high-grade venous stenosis. These appear to be dramatically improved subsequent to the angioplasty. There appears to be adequate distal upper arm outflow. Liam Brown M.D., F.A.C.S. 12/05/17 0618 <Electronically signed by Liam Brown MD> Date Liam Brown MD CC: Liam Brown MD; Justice Britt MD Signed RENAL PROFILE Collected: 11/13/2017 Status: F Source: [place] 1:29 PM [facility] TYPE CODE TESTS RESULT OUT OF RANGE REFERENCE UNITS LAB L501.0100 74-106 mg/dL Normal GLU 95 Result Comment: Please note revised GLUCOSE reference range effective 2017. LAB L501.1000 7-18 mg/dL High BUN 44 LAB L501.1100 0.70-1.30 mg/dL High CREAT,SERUM 3.81 Result Comment: The validity of the calculated GFR AND GFRAA in patients over 70 years has not been determined. Clinical correlation is essential. LAB L501.1110 >60 mL/min Low EST GFR 16 Result Comment: Non- GFR Calc LAB L501.1115 >60 mL/min Low EST GFR - AA 20 Result Comment: GFR Calc LAB L501.1300 10-20 RATIO Normal BUN/CRE 11.5 LAB L501.1800 3.2-5.0 g/dL Low ALB 3.1 LAB L501.2200 8.5-10.1 mg/dL Low CA 8.4 LAB L501.2300 2.5-4.9 mg/dL Normal PHOS 3.3 LAB L501.5300 136-145 mmol/L NA Normal 143 LAB L501.5600 3.5-5.1 mmol/L K Normal 3.6 LAB L501.5900 98-107 mmol/L CL Normal 105 LAB L501.6100 21.0-32.0 mmol/L Normal CO2 28.0 Performed By: #### L500.3600 #### [facility] [address] [place], [place], [address] CBC-COMPLETE BLOOD CNT Collected: 11/13/2017 Status: F Source: [place] NO DIFF 1:29 PM [facility] TYPE CODE TESTS RESULT OUT OF RANGE REFERENCE UNITS LAB L100.1000 4.4-11.0 K/mm3 Normal WBC 8.8 LAB L100.1200 4.6-6.2 M/mm3 Low RBC 3.71 LAB L100.1300 13.0-16.5 g/dl Low HGB 10.7 LAB L100.1400 40-54 % Low HCT 33.4 LAB L100.1500 80-94 fL Normal MCV 90.0 LAB L100.1600 27.0-32.0 pg Normal MCH 28.8 LAB L100.1700 32-36 g/gl Normal MCHC 32.0 LAB L100.1810 11.6-14.6 % Normal RDW CV 14.3 LAB L100.1820 35.1-43.9 fl High RDW SD 46.1 LAB L100.1900 150-450 K/mm3 Normal PLT 245 LAB L100.2000 6.2-12.0 fl Normal MPV 11.2 Performed By: #### L100.0500 #### [facility] [address] [place], [address] VITAMIN D,25 HYDROXY Collected: 11/13/2017 Status: F Source: [place] 1:29 PM [facility] TYPE CODE TESTS RESULT OUT OF RANGE REFERENCE UNITS LAB L506.1000 29.95-100.01 ng/mL Normal Vitamin D 33.1 25-OH Result Comment: Vitamin D 25(OH) Status Range Deficiency <20 ng/mL (50nmol/L) Insuffciency 20 - 30 ng/mL (50 - 75 nmol/L) Sufficiency 30 - 100 ng/mL (75 - 250 nmol/L) Toxicity >100 ng/mL (>250 nmol/L) Performed By: #### L506.1000 #### [facility] [address] [place], [address] PTHIN Collected: 11/13/2017 Status: F Source: [place] 1:29 PM [facility] TYPE CODE TESTS RESULT OUT OF RANGE REFERENCE UNITS LAB L509.1000 18.4-80.1 pg/mL High PTHIN 205.2 Performed By: #### L509.1000 #### [facility] [address] [place], [address] SURGERY VISIT REPORT Observed: 11/13/2017 Status: F Source: [place] 9:57 AM [facility] 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 Required: No Is patient in pain?: No Allergies JAMEEL Inhibitors Allergy (Verified 11/12/17 13:00) Unknown doxazosin mesylate [From Cardura] Allergy (Verified 11/12/17 13:00) Hives fosinopril sodium [From Monopril] Allergy (Verified 11/12/17 13:00) Hives lisinopril Allergy (Verified 11/12/17 13:00) Hives morphine Allergy (Verified 11/12/17 13:00) Other Medications Aspirin [Aspirin, Baby] 81 mg PO DAILY@0800 04/01/14 [History Confirmed 11/12/17] Finasteride [Proscar] 5 mg PO DAILY 04/01/14 [History Confirmed 11/12/17] Nitroglycerin [Nitrostat] 0.4 mg SUBLINGUAL Q5M PRN 02/01/15 [History Confirmed 11/12/17] terazosin 1 mg capsule 1 mg PO QDAY cap 05/09/17 [History Confirmed 11/12/17] clopidogrel 75 mg tablet 75 mg PO DAILY #90 tab 06/12/17 [Rx Confirmed 11/12/17] furosemide 20 mg tablet 40 mg PO DAILY tab 07/23/17 [History Confirmed 11/12/17] potassium chloride ER 20 mEq tablet,extended release 20 meq PO TID tab 07/23/17 [History Confirmed 11/12/17] pravastatin 20 mg tablet 20 mg PO QHS #90 tab 08/08/17 [Rx Confirmed 11/12/17] ipratropium bromide 0.02 % solution for inhalation 1.25 ml INHALATION Q8H PRN 08/30/17 [History Confirmed 11/12/17] atenolol 50 mg tablet 50 mg PO QDAY tab 09/13/17 [History Confirmed 11/12/17] cholecalciferol (vitamin D3) 50,000 unit capsule 50,000 unit PO QWEEK 09/13/17 [History Confirmed 11/12/17] citalopram 20 mg tablet 20 mg PO QDAY 09/13/17 [History Confirmed 11/12/17] donepezil 5 mg tablet 5 mg PO QDAY 09/13/17 [History Confirmed 11/12/17] febuxostat 80 mg tablet 80 mg PO QDAY 09/13/17 [History Confirmed 11/12/17] levothyroxine 25 mcg tablet 50 mcg PO DAILY tab 09/13/17 [History Confirmed 11/12/17] PFSH Medical History Fatigue (Chronic) Abnormal electrocardiogram (Chronic) Long-term use of high-risk medication (Chronic) BMI 40.0-44.9, adult (Chronic) Chest pain on exertion (Chronic) Angina pectoris (Chronic) Pulmonary hypertension (Chronic) ALY (obstructive sleep apnea) (Chronic) Abnormal nuclear stress test (Chronic) Diastolic heart failure (Chronic) Sinus bradycardia (Chronic) Atherosclerosis of 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 (Chronic) Shortness of breath (Chronic) Atherosclerosis of 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 (Acute) Hypertension (Chronic) Status post right partial knee replacement (Acute) Arthritis (Chronic) Benign essential hypertension (Chronic) Benign prostatic hypertrophy without lower urinary tract symptoms (Chronic) Chronic kidney disease (Chronic) Coronary artery disease (Chronic) Gastroesophageal reflux disease (Chronic) Hyperlipidemia (Chronic) Normochromic normocytic anemia (Chronic) Chronic renal failure, stage 3 (moderate) (Chronic) Chest pain (Acute) Hypokalemia (Acute) Acute renal insufficiency (Acute) Surgical History 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 He is not on dialysis currently. 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 Patient has a transposition left forearm cephalic vein to radial artery arteriovenous fistula creation on 05/10/17. Dr. Brown performed a left upper extremity carbon dioxide fistulogram on 07/27/2017. Findings included proximal and distal venous fistula stenosis treated with 5 x 80 mm ever cross angioplasty. Patient denies pain/discomfort. He denies numbness/tingling of the left hand and fingers. Patient returns for a follow-up. He denies concerns or complaints. He has a scratch on the left forearm from a cat. Patient presents alone today. He notes his is hospitalized with a PE at this time. Patient had a follow-up with Dr. Lang in August with no recommendations of starting dialysis. ROS General General: No weight change, appetite, fatigue, colon cancer, breast cancer or weakness HEENT HEENT: No difficulty swallowing, eye injury, eye surgery, swollen glands or hoarseness Endo Endocrine: Yes thyroid disease Skin Skin: No rash or changing moles Breast Breast: No left breast lump, right breast lump, nipple discharge, breast pain, abnormal mammogram, abnormal US or breast enlargement Musc Musculoskeletal: Yes arthritis Cardio Cardiovascular: Yes atrial fibrillation Psych Psychiatric: No depression, anxiety or hearing voices Resp Respiratory: No shortness of breath, No sleep apnea, No cough, No COPD, No asthma, No emphysema, No wheezing Gastro Gastrointestinal: No abdominal pain, No nausea or vomiting, Yes diarrhea, No constipation, No blood in stool, No acid reflux, No hemorrhoids, No ulcers, No gallbladder problem, No black,tarry stools [place] Hematologic: Yes blood thinners Neuro Neurologic: No weakness Exam Const General: cooperative, healthy appearing, comfortable, no acute distress HENMT Head: normal to inspection Eyes General: appearance normal, both eyes and all related structures Neck Neck mass: No Chest Breast Palpation: No nipple discharge Resp Effort AND Inspection: normal respiratory effort Auscultation: clear to auscultation bilaterally Cardio Rate: regular rate Rhythm: regular rhythm GI Inspection: normal to inspection, obesity, large pannus Palpation: soft Auscultation: normal bowel sounds Skin General: no rashes or lesions noted Neuro General: no focal motor deficits Extrem Other: Left forearm AV fistula- good pulse, diminished bruit and thrill. Abrasion on the left forearm from cat scratch. Patient appears to be picking at this as well. Psych Appearance: grossly normal Mood: labile mood Affect: flat Judgment: limited, fair Assessment AND Plan Problems 1. Problem with dialysis access, initial encounter T88.201M Plan Dr. Brown will plan to perform a left forearm AV fistulogram with possible intervention. Procedure details, risks and benefits have been explained to the patient. Patient has had the opportunity to ask and have questions answered. Patient verbally understands and agrees with the plan. Coding Level of Care Code Off vis,est,level 3 Diagnoses Problem with dialysis access, initial encounter T82.898A Encounter type: initial encounter 11/13/17 0957 <Electronically signed by Jaylin New PA-C> Date Jaylin New PA-C Cosigner Signature: Date (if applicable) CC: Luann Lang DO INITAL EVALUATION (1) Observed: 09/20/2017 Status: F Source: [place] - PT 9:20 AM [facility] [address] [place] [address]. [address] [place] [address] Fax REHABILITATION SERVICES INITIAL EVALUATION MR#: [id number] Acct: [id number] Name: ARIANNA GUILLERMO Rep #: [id number] : 1940 77 From: Barry Roche PT, Cert. MDT, OCS Referring Dr.: Justice Britt MD Status: REG RCR Insurance: MEDICARE PART A B ANTH Patient's Visit Information ARIANNA GUILLERMO is a 77 year old M referred to Physical Therapy by Justice Britt with a diagnosis of R hip OA, gait difficulty. Date of Evaluation: 09/18/17 Physical Therapist: Barry Roche PT, - Visit Plan Frequency: 2x /Week Duration: 4 Weeks Plan: Stretching to improve R hip extension. Strengthening to improve R hip abduction and general LE strength. Nustep for general conditioning. Modalities PRN. Hx: B JAREN, R TKA, Lumbar fusion (unkown DOS). - Subjective Subjective: This 77 y/o male ppresents to physical therapy wt lateral hip pain.Pt is a poor historian. Pt reports that he experienced a fall 6 months ago when he tripped while walking up his concrete steps. R hip pain started after the fall. He is having a good day today, not having any pain. Usually has one good day per week. On average, his R hip pain is located laterally and rates as a 5/10. Irritating factors include ambulating long distances and on uneven ground. Does not know of any easing factors for his pain. Denies any treatment or is taking any medications for this condition. Pt lives with son and in own home. Denies limitations to navigating home. Patient has h/o bilateral THR replacement,TKR right and lumbar surgery fusion.Patient has had PT for [facility]. - Pain Right Hip Pain Intensity (Out of 10): 5 Pain Intensity Range: 10 Comment: average -right lateral pelvis - Objective Posture: forward flexed at hips, R IC superior, GT level. Palpation: TTP R glute med/TFL. Gait: slow samuel, short step lengths, forward flexed, cane in L UE, no hip extension past neutral during stance. ROM: Supine hip flexion: R 87, L 61. Seated L Hip IR 23, ER 15; R hip IR 17, ER 7. Passive R hip extension to neutral. Strength: R hip aBd 3+/5, R hip flexion 4/5. L hip flexion, B knee extension 5/5. - Goals Goal 1:: Pt will be independent with HEP to sustain clinical gains made with therapy. Goal Time Frame: 2-4 Weeks Goal 2:: Pt will demonstrate MMT of 4/5 with R hip abduction to improve pelvic/hip stability with ambulation. Goal Time Frame: 2-4 Weeks Goal 3:: Pt will demonstrate passive hip extension past neutral to allow for more normalized ambualtion. Goal Time Frame: 2-4 Weeks Goal 4:: Pt will report improvement with functional ADLs to allow for improved QOL and independence. Goal Time Frame: 2-4 Weeks - Rehabilitation Potential Physical Therapy Diagnosis: Pt is 77 y/o male with referral of R hip OA and gait difficulty. He reports hx of fall 6 mo ago which elicited his R hip pain. Objective testing reveals loss of R hip IR and extension, R hip abduction and flexion weakness, and mild static balance impairment. Pt appears to have irritation of the glute med and TFL. He is demonstrating activity restrictions with ambulating long distances and on uneven ground. His potential for an ideal outcome is fair secondary to cognitive deficits and chronicity of symptoms. Pt will benefit from skilled therapy to address the above mentioned impairments. Rehabilitation Potential: Fair - Anticipated Interventions Patient/Client Instruction: Educate patient on: Condition, Plan of Care, Benefits of Fitness Program For the Purpose of:: To decrease pain, To increase ROM, To improve muscle performance and motor function, To improve ability to perform ADL's, To increase tolerance to activity/condition/position, To decrease soft tissue restriction, To increase flexibility/ROM, To improve health and function, To improve self management Therapeutic Exercise to Include: Strength training, Endurance training, Balance training, Flexibilty training, Gait and locomotor training, Passive ROM, Active ROM For the Purpose of:: To decrease pain, To increase ROM, To improve muscle performance and motor function, To improve ability to perform ADL's, To increase tolerance to activity/condition/position, To improve ability of physical actions for home/community/work/leisure, To improve gait and locomotor functions, To improve health of tissue, To improve endurance, To improve safety with gait Manual Therapy Techniques to Include: Mobilization, Soft tissue mobilization For the Purpose of:: To decrease pain, To increase ROM, To improve muscle performance and motor function, To improve health of tissue TENS: Yes Cryotherapy (ice pack, ice massage): Yes Ultrasound (thermal/non thermal): Yes For the Purpose of:: To decrease pain, To decrease swelling/inflammation, To increase ROM, To improve nutrient delivery to tissue, To increase tolerance to activity/condition/position, To improve health of tissue Thank you for the opportunity to evaluate your patient. For Medicare and Medicare HMO plans, please review the plan of care and approve it. It will need to be FAXED BACK to us at [phone] for Medicare purposes. Please let me know if there are questions or concerns regarding this plan of care. Physician Signature: Date: <Electronically signed by Barry Roche PT, Cert. ZACH, OCS> 09/20/17 0920 CC: Justice Britt MD LEO Signed For Medicare only, by signing this I certify the plan of care. Physicians Signature Date SERUM CREATININE AND Collected: 09/14/2017 Status: F Source: [place] GFR 11:50 AM [facility] TYPE CODE TESTS RESULT OUT OF RANGE REFERENCE UNITS LAB L501.1100 0.70-1.30 mg/dL High 3.32 CREAT,SERUM Result Comment: The validity of the calculated GFR AND GFRAA in patients over 70 years has not been determined. Clinical correlation is essential. LAB L501.1110 >60 mL/min Low EST GFR 19 Result Comment: Non- GFR Calc LAB L501.1115 >60 mL/min Low EST GFR - AA 23 Result Comment: GFR Calc Performed By: #### L501.1105 #### [facility] [address] [place], [address] PROTEIN, URINE 24HR Collected: 09/14/2017 Status: F Source: [place] 11:50 AM [facility] TYPE CODE TESTS RESULT OUT OF RANGE REFERENCE UNITS LAB L501.1850 24.0 HOURS Normal UR COLLECT 24.0 TIME LAB L501.1875 mL Normal UR TOTAL 1400 VOLUME LAB L501.1900 <11.9 mg/dL High URINE PROTEIN 67.9 LAB L501.1925 <150 MG/24HR mg/24HR High 24hr UR 950.6 PROTEIN Performed By: #### L500.9000 #### [facility] [address] [place], [address] 24 HR UR CREATININE Collected: 09/14/2017 Status: F Source: [place] CLEARANCE 11:50 AM [facility] TYPE CODE TESTS RESULT OUT OF RANGE REFERENCE UNITS LAB L501.0050 24.0 HOURS Normal UR COLLECT 24.0 TIME LAB L501.0075 mL Normal UR TOTAL 1400 VOLUME LAB L501.1050 0.8-1.3 mg/dL High SERUM CREAT 3.3 LAB L501.1110 >60 mL/min Low EST GFR 19 Result Comment: Non- GFR Calc LAB L501.1115 >60 mL/min Low EST GFR - AA 23 Result Comment: GFR Calc LAB L501.1150 NO RANGE mg/dL EST. URINE Normal CREAT 75.2 LAB L501.1250 100-200 ml/min Low CREAT CLEARANCE 22 Performed By: #### L500.4507 #### [facility] [address] [place], [address] HIP 2-3 VIEWS WITH Observed: 09/11/2017 Status: F Source: [place] PELVIS 3:36 PM [facility] Imaging Services [address] [place] [address] Hip 2-3 Views with Pelvis MR#: [id number] Acct: [id number] Name: ARIANNA GUILLERMO Rep #: [id number] : 1940 M 77 From: Juan Jose Dewitt MD PCP: Nicolas HOWE,Justice García Status: REG CLI Study: Hip 2-3 Views with Pelvis Date of Exam: 09/11/17 Exam# [id number] Ordering Dr: Justice Britt MD STUDY: X-RAY - PELVIS AND RIGHT HIP REASON FOR EXAM: Hip pain for 6 months. TECHNIQUE: Radiological exam, hip, unilateral, with pelvis when performed; 2 or 3 views. COMPARISON: None. FINDINGS: There are postoperative changes of the lumbar spine. Normal bilateral iliac wings, sacroiliac joints and visualized sacrum. Normal bilateral superior and inferior pubic rami. Normal pubic symphysis. Normal bilateral ischial tuberosities. 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 There is also a left hip arthroplasty. RAD/Hip 2-3 Views with Pelvis IMPRESSION: Right hip arthroplasty with heterotopic ossification. Electronically Signed: Juan Jose Dewitt MD at 16:10 EDT Tel , Service support , CC: Justice Britt MD Veterinary Epidemiologist: Signed CBC W/DIFF, AUTOMATED Collected: 09/11/2017 Status: F Source: [place] 1:34 PM [facility] RE[facility] Order Comment: DR BRITT ORDERED VITD CMP URIC ACID TSH CBCD DR LANG ORDERED RENAL CBC PTH TYPE CODE TESTS RESULT OUT OF RANGE REFERENCE UNITS LAB L100.1000 4.4-11.0 K/mm3 Normal WBC 8.9 LAB L100.1200 4.6-6.2 M/mm3 Low RBC 3.94 LAB L100.1300 13.0-16.5 g/dl Low HGB 11.0 LAB L100.1400 40-54 % Low HCT 34.3 LAB L100.1500 80-94 fL Normal MCV 87.1 LAB L100.1600 27.0-32.0 pg Normal MCH 27.9 LAB L100.1700 32-36 g/gl Normal MCHC 32.1 LAB L100.1810 11.6-14.6 % Normal RDW CV 14.2 LAB L100.1820 35.1-43.9 fl High RDW SD 45.3 LAB L100.1900 150-450 K/mm3 Normal PLT 254 LAB L100.2000 6.2-12.0 fl Normal MPV 10.6 LAB L100.2100 47-70 % High NEUT% 75.4 LAB L100.2200 19-41 % Low LY% 12.5 LAB L100.2300 0-10 % Normal MONO% 9.7 LAB L100.2400 0-5 % Normal EO% 1.6 LAB L100.2500 0-1 % Normal BASO% 0.6 LAB L100.2550 0.0-0.9 % Normal IM GRAN % 0.200 Result Comment: IG% - Immature Granulocytes (promyelocytes, myelocytes and metamyelocytes) > 1% indicates that a LEFT SHIFT is Present. LAB L100.2620 2.0-7.7 X10 3/uL Normal Absolute Neut 6.7 LAB L100.2720 0.83-4.51 X10 3/ul Normal Absolute Lymph 1.11 Performed By: #### L100.0100 #### [facility] [address] [place], [place], [address] COMPREHENSIVE METABOLIC Collected: 09/11/2017 Status: F Source: [place] BEST 1:34 PM [facility] Order Comment: DR BRITT ORDERED VITD CMP URIC ACID TSH CBCD DR LANG ORDERED RENAL CBC PTH TYPE CODE TESTS RESULT OUT OF RANGE REFERENCE UNITS LAB L501.0100 74-106 mg/dL Normal GLU 98 Result Comment: Please note revised GLUCOSE reference range effective 2017. LAB L501.1000 7-18 mg/dL High BUN 44 LAB L501.1100 0.70-1.30 mg/dL High CREAT,SERUM 3.53 Result Comment: The validity of the calculated GFR AND GFRAA in patients over 70 years has not been determined. Clinical correlation is essential. LAB L501.1110 >60 mL/min Low EST GFR 18 Result Comment: Non- GFR Calc LAB L501.1115 >60 mL/min Low EST GFR - AA 22 Result Comment: GFR Calc LAB L501.1300 10-20 RATIO Normal BUN/CRE 12.5 LAB L501.1500 6.4-8.2 g/dL T Normal PROT 6.8 LAB L501.1800 3.2-5.0 g/dL Low ALB 3.0 LAB L501.1950 2.2-4.2 g/dL Normal GLOB 3.8 LAB L501.2000 0.9-2.4 RATIO Low A/G 0.8 LAB L501.2200 8.5-10.1 mg/dL Low CA 8.3 LAB L501.4100 15-37 U/L Low AST 12 LAB L501.4305 45-117 U/L Normal ALK P 79 LAB L501.4405 16-61 U/L Low ALT 14 LAB L501.4600 0.20-1.00 mg/dL T Normal BILI 0.30 LAB L501.5300 136-145 mmol/L NA Normal 139 LAB L501.5600 3.5-5.1 mmol/L K Normal 3.7 LAB L501.5900 98-107 mmol/L CL Normal 102 LAB L501.6100 21.0-32.0 mmol/L Normal CO2 26.0 LAB L501.6200 5-15 Normal GAP 11 Performed By: #### L500.4050, L501.1400, L501.2300, L501.9520 #### [facility] [address] [place], [address] URIC ACID Collected: 09/11/2017 Status: F Source: [place] 1:34 PM [facility] Order Comment: DR BRITT ORDERED VITD CMP URIC ACID TSH CBCD DR LANG ORDERED RENAL CBC PTH TYPE CODE TESTS RESULT OUT OF RANGE REFERENCE UNITS LAB L501.1400 3.5-7.2 mg/dL Normal URIC 3.8 Result Comment: The drugs N-Acetylcysteine and Metamizole may falsely depress this assay. Performed By: #### L500.4050, L501.1400, L501.2300, L501.9520 #### [facility] [address] [place], [address] PHOSPHORUS Collected: 09/11/2017 Status: F Source: [place] 1:34 PM [facility] Order Comment: DR BRITT ORDERED VITD CMP URIC ACID TSH CBCD DR LANG ORDERED RENAL CBC PTH TYPE CODE TESTS RESULT OUT OF RANGE REFERENCE UNITS LAB L501.2300 2.5-4.9 mg/dL Normal PHOS 3.0 Performed By: #### L500.4050, L501.1400, L501.2300, L501.9520 #### [facility] [address] [place], [address] THYROID STIM HORMONE Collected: 09/11/2017 Status: F Source: [place] (TSH) 1:34 PM [facility] Order Comment: DR BRITT ORDERED VITD CMP URIC ACID TSH CBCD DR LANG ORDERED RENAL CBC PTH TYPE CODE TESTS RESULT OUT OF RANGE REFERENCE UNITS LAB L501.9520 0.358-3.74 uIU/mL Normal TSH 2.90 Performed By: #### L500.4050, L501.1400, L501.2300, L501.9520 #### [facility] [address] [place], [address] PTHIN Collected: 09/11/2017 Status: F Source: [place] 1:34 PM [facility] Order Comment: DR BRITT ORDERED VITD CMP URIC ACID TSH CBCD DR LANG ORDERED RENAL CBC PTH TYPE CODE TESTS RESULT OUT OF RANGE REFERENCE UNITS LAB L509.1000 18.4-80.1 pg/mL High PTHIN 182.1 Performed By: #### L509.1000 #### [facility] [address] [place], [address] VITAMIN D,25 HYDROXY Collected: 09/11/2017 Status: F Source: [place] 1:34 PM [facility] Order Comment: DR BRITT ORDERED VITD CMP URIC ACID TSH CBCD DR LANG ORDERED RENAL CBC PTH TYPE CODE TESTS RESULT OUT OF REFERENCE UNITS RANGE LAB L506.1000 29.95-100.01 ng/mL Low Vitamin D 16.8 25-OH Result Comment: Vitamin D 25(OH) Status Range Deficiency <20 ng/mL (50nmol/L) Insuffciency 20 - 30 ng/mL (50 - 75 nmol/L) Sufficiency 30 - 100 ng/mL (75 - 250 nmol/L) Toxicity >100 ng/mL (>250 nmol/L) Performed By: #### L506.1000 #### [facility] [address] [place], [address] SURGERY VISIT REPORT Observed: 08/30/2017 Status: F Source: [place] 1:45 PM [facility] [address] [place] [address]. [address] [place] [address] OFFICE VISIT Date of Service: 08/30/17 MR#: [id number] Acct: [id number] Name: ARIANNA GUILLERMO Nohemy Rep #: [id number] : 1940 Provider: Jaylin New PA-C Age/Sex: 77/M Location: [facility] Status: Signed Intake Intake Visit Reasons: F/U RC 07/27 FISTULAGRAM Chief Complaint: post fistulogram Treating Machine Operator Required: No Is patient in pain?: No Allergies JAMEEL Inhibitors Allergy (Verified 08/30/17 10:46) Unknown doxazosin mesylate [From Cardura] Allergy (Verified 08/30/17 10:46) Hives fosinopril sodium [From Monopril] Allergy (Verified 08/30/17 10:46) Hives lisinopril Allergy (Verified 08/30/17 10:46) Hives morphine Allergy (Verified 08/30/17 10:46) Other Medications Aspirin [Aspirin, Baby] 81 mg PO DAILY@0800 04/01/14 [History Confirmed 08/30/17] Finasteride [Proscar] 5 mg PO DAILY 04/01/14 [History Confirmed 08/30/17] Nitroglycerin [Nitrostat] 0.4 mg SUBLINGUAL Q5M PRN 02/01/15 [History Confirmed 08/30/17] Ranitidine HCl 150 mg PO DAILY 07/17/16 [History Confirmed 08/30/17] plecanatide 3 mg tablet 3 mg PO QDAY 04/16/17 [History Confirmed 08/30/17] levothyroxine 25 mcg tablet 25 mcg PO DAILY 04/27/17 [History Confirmed 08/30/17] linaclotide 72 mcg capsule 72 mcg PO QAM 04/27/17 [History Confirmed 08/30/17] Fluticasone 0.05% [Flonase Nasal [place]] 1 spray NASAL DAILY PRN 05/07/17 [History Confirmed 08/30/17] eluxadoline 75 mg tablet 150 mg PO ONCE tab 05/09/17 [History Confirmed 08/30/17] escitalopram 10 mg tablet 10 mg PO QDAY 05/09/17 [History Confirmed 08/30/17] hydroxyzine HCl 50 mg tablet 50 mg PO Q6H PRN tab 05/09/17 [History Confirmed 08/30/17] terazosin 1 mg capsule 1 mg PO QDAY cap 05/09/17 [History Confirmed 08/30/17] amlodipine 5 mg tablet 5 mg PO DAILY #90 tab 06/12/17 [Rx Confirmed 08/30/17] clopidogrel 75 mg tablet 75 mg PO DAILY #90 tab 06/12/17 [Rx Confirmed 08/30/17] atenolol 50 mg tablet 50 mg PO BID tab 07/23/17 [History Confirmed 08/30/17] furosemide 20 mg tablet 40 mg PO DAILY tab 07/23/17 [History Confirmed 08/30/17] potassium chloride ER 20 mEq tablet,extended release 20 meq PO TID tab 07/23/17 [History Confirmed 08/30/17] pravastatin 20 mg tablet 20 mg PO QHS #90 tab 08/08/17 [Rx Confirmed 08/30/17] ipratropium bromide 0.02 % solution for inhalation 1.25 ml INHALATION Q8H PRN 08/30/17 [History Confirmed 08/30/17] PFSH Medical History Fatigue (Chronic) Abnormal electrocardiogram (Chronic) Long-term use of high-risk medication (Chronic) BMI 40.0-44.9, adult (Chronic) Chest pain on exertion (Chronic) Angina pectoris (Chronic) Pulmonary hypertension (Chronic) ALY (obstructive sleep apnea) (Chronic) Abnormal nuclear stress test (Chronic) Diastolic heart failure (Chronic) Sinus bradycardia (Chronic) Atherosclerosis of 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 (Chronic) Shortness of breath (Chronic) Atherosclerosis of 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 (Acute) Hypertension (Chronic) Status post right partial knee replacement (Acute) Arthritis (Chronic) Benign essential hypertension (Chronic) Benign prostatic hypertrophy without lower urinary tract symptoms (Chronic) Chronic kidney disease (Chronic) Coronary artery disease (Chronic) Gastroesophageal reflux disease (Chronic) Hyperlipidemia (Chronic) Normochromic normocytic anemia (Chronic) Chronic renal failure, stage 3 (moderate) (Chronic) Chest pain (Acute) Hypokalemia (Acute) Acute renal insufficiency (Acute) Surgical History 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 Patient returns for a follow-up. He is not on dialysis currently. 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 Patient has a transposition left forearm cephalic vein to radial artery arteriovenous fistula creation on 05/10/17. Dr. Brown performed a left upper extremity carbon dioxide fistulogram on 07/27/2017. Findings included proximal and distal venous fistula stenosis treated with 5 x 80 mm ever cross angioplasty. Patient denies pain/discomfort. He denies numbness/tingling of the left hand and fingers. Exam Extrem Other: Left forearm AV fistula- good pulse, bruit and thrill. Assessment AND Plan Problems 1. 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 Z99.2 08/30/17 1345 <Electronically signed by Jaylin New PA-C> Date Jaylin New PA-C Cosigner Signature: Date (if applicable) CC: VENOUS DUPLEX LOWER Observed: 08/27/2017 Status: F Source: [place] EXTREMITY 10:05 PM [facility] Cardiovascular Services [address] [place] [address] Venous Duplex US - Rambo Extrem 08/27/17 1554 MR#: [id number] Acct: [id number] Name: ARIANNA GUILLERMO Rep #: [id number] : 1940 77 From: Pravin Akers MD Attending Dr: Nicolas HOWE,Justice García Status: REG CLI Ordering Dr: Justice Britt MD Date: 08/27/17 Location: [facility] Sex: M C Admitted: Reason For Study: edema RIGHT LEFT GSV is normal. GSV is normal. CFV is compressible, spontaneous, phasic, CFV is compressible, spontaneous, phasic, competent and demonstrates normal competent, and demonstrates normal augmentation. augmentation. FV is compressible, spontaneous, phasic, FV is compressible, spontaneous, phasic, competent and demonstrates normal competent and demonstrates normal augmentation. augmentation. POP V is compressible, spontaneous, phasic, POP V is compressible, spontaneous, phasic, competent and demonstrates normal competent and demonstrates normal augmentation. augmentation. T/P Trunk is compressible. T/P Trunk is compressible. PTV is compressible. PTV is compressible. RT PerV is compressible. Unable to visualize/assess PER V. Procedure Exam performed in department. The exam was diagnostic. The study was technically difficult. A preliminary report was called and/or faxed to DR. Britt @ 4:20 pm @ [phone]. Interpretation Summary Deep veins of the lower extremities are bilaterally patent and compressible segmentally. There is no evidence of deep vein thrombosis on either side. Valvular competence appears intact within the proximal deep venous systems bilaterally. The greater saphenous veins appear bilaterally patent and compressible segmentally. The left peroneal vein was not visualized. Ordering Physician: Justice Britt Referring Physician: Justice Britt Chi Performed By: Amanda Carbajal, MAYELA, RVT 08/27/172203 Date Pravin Akers MD CC: Justice Britt MD Date Dictated: 08/27/17 1554 Date Transcribed: 08/27/172203 Veterinary Epidemiologist: Signed ABDOMEN SINGLE VIEW Observed: 08/27/2017 Status: F Source: [place] 3:34 PM [facility] Imaging [place] [address] Abdomen Single View MR#: [id number] Acct: [id number] Name: ARIANNA GUILLERMO Rep #: [id number] : 1940 M 77 From: Karthikeyan Pacheco MD PCP: Justice Britt MD, Chi Status: REG CLI Study: Abdomen Single View Date of Exam: 08/27/17 Exam# [id number] Ordering Dr: Justice Britt MD STUDY: X-RAY - ABDOMEN/PELVIS REASON FOR EXAM: Male, 77 years old. Pain TECHNIQUE: 3 frontal views of the abdomen COMPARISON: None. FINDINGS: There is no bowel obstruction. There is air and stool to the level of the rectum. There are degenerative changes noted in the spine. There is fixation hardware spanning L3 and L4. The patient is status post bilateral hip arthroplasty. RAD/Abdomen Single View IMPRESSION: No bowel obstruction. Electronically Signed: Karthikeyan Tara, at 16:03 EDT Tel , Service support , CC: Justice Britt MD Veterinary Epidemiologist: Signed BASIC METABOLIC Collected: 08/27/2017 Status: F Source: [place] PROFILE (BMP) 3:13 PM [facility] TYPE CODE TESTS RESULT OUT OF RANGE REFERENCE UNITS LAB L501.0100 74-106 mg/dL Normal GLU 97 Result Comment: Please note revised GLUCOSE reference range effective 2017. LAB L501.1000 7-18 mg/dL High BUN 41 LAB L501.1100 0.70-1.30 mg/dL High CREAT,SERUM 3.32 Result Comment: The validity of the calculated GFR AND GFRAA in patients over 70 years has not been determined. Clinical correlation is essential. LAB L501.1110 >60 mL/min Low EST GFR 19 Result Comment: Non- GFR Calc LAB L501.1115 >60 mL/min Low EST GFR - AA 23 Result Comment: GFR Calc LAB L501.1300 10-20 RATIO Normal BUN/CRE 12.3 LAB L501.2200 8.5-10.1 mg/dL Low CA 8.4 LAB L501.5300 136-145 mmol/L NA Normal 139 LAB L501.5600 3.5-5.1 mmol/L K Normal 3.6 LAB L501.5900 98-107 mmol/L CL Normal 105 LAB L501.6100 21.0-32.0 mmol/L Normal CO2 26.0 LAB L501.6200 5-15 Normal GAP 8 Performed By: #### L500.2500 #### [facility] [address], [address] CBC W/DIFF, AUTOMATED Collected: 08/27/2017 Status: F Source: [place] 3:13 PM [facility] TYPE CODE TESTS RESULT OUT OF RANGE REFERENCE UNITS LAB L100.1000 4.4-11.0 K/mm3 Normal WBC 7.9 LAB L100.1200 4.6-6.2 M/mm3 Low RBC 3.89 LAB L100.1300 13.0-16.5 g/dl Low HGB 10.9 LAB L100.1400 40-54 % Low HCT 34.6 LAB L100.1500 80-94 fL Normal MCV 88.9 LAB L100.1600 27.0-32.0 pg Normal MCH 28.0 LAB L100.1700 32-36 g/gl Low MCHC 31.5 LAB L100.1810 11.6-14.6 % Normal RDW CV 14.4 LAB L100.1820 35.1-43.9 fl High RDW SD 46.7 LAB L100.1900 150-450 K/mm3 Normal PLT 243 LAB L100.2000 6.2-12.0 fl Normal MPV 10.1 LAB L100.2100 47-70 % High NEUT% 72.0 LAB L100.2200 19-41 % Low LY% 16.8 LAB L100.2300 0-10 % Normal MONO% 8.0 LAB L100.2400 0-5 % Normal EO% 2.7 LAB L100.2500 0-1 % Normal BASO% 0.4 LAB L100.2550 0.0-0.9 % Normal IM GRAN % 0.100 Result Comment: IG% - Immature Granulocytes (promyelocytes, myelocytes and metamyelocytes) > 1% indicates that a LEFT SHIFT is Present. LAB L100.2620 2.0-7.7 X10 3/uL Normal Absolute Neut 5.7 LAB L100.2720 0.83-4.51 X10 3/ul Normal Absolute Lymph 1.33 Performed By: #### L100.0100 #### [facility] [address] [place], [address] SURGERY VISIT REPORT Observed: 08/02/2017 Status: F Source: [place] 1:55 PM [facility] [address] [place] [address] OFFICE VISIT Date of Service: 08/02/17 MR#: [id number] Acct: [id number] Name: ARIANNA GUILLERMO Rep #: [id number] : 1940 Provider: Jaylin New PA-C Age/Sex: 76/M Location: [facility] Status: Signed Intake Intake Visit Reasons: F/U RC 07/27 FISTULA GRAM AND SUTURE REMOVAL Chief Complaint: post fistulogram Treating Machine Operator Required: No Is patient in pain?: No Allergies JAMEEL Inhibitors Allergy (Verified 08/02/17 09:03) Unknown doxazosin mesylate [From Cardura] Allergy (Verified 08/02/17 09:03) Hives fosinopril sodium [From Monopril] Allergy (Verified 08/02/17 09:03) Hives lisinopril Allergy (Verified 08/02/17 09:03) Hives morphine Allergy (Verified 08/02/17 09:03) Other Medications Aspirin [Aspirin, Baby] 81 mg PO DAILY@0800 04/01/14 [History Confirmed 07/26/17] Finasteride [Proscar] 5 mg PO DAILY 04/01/14 [History Confirmed 07/26/17] Nitroglycerin [Nitrostat] 0.4 mg SUBLINGUAL Q5M PRN 02/01/15 [History Confirmed 07/26/17] Pravastatin [Pravachol] 20 mg PO QHS 02/27/15 [History Confirmed 07/26/17] Ranitidine HCl 150 mg PO DAILY 07/17/16 [History Confirmed 07/26/17] plecanatide 3 mg tablet 3 mg PO QDAY 04/16/17 [History Confirmed 07/26/17] levothyroxine 25 mcg tablet 25 mcg PO DAILY 04/27/17 [History Confirmed 07/26/17] linaclotide 72 mcg capsule 72 mcg PO QAM 04/27/17 [History Confirmed 07/26/17] Fluticasone 0.05% [Flonase Nasal [place]] 1 spray NASAL DAILY PRN 05/07/17 [History Confirmed 07/26/17] eluxadoline 75 mg tablet 150 mg PO ONCE tab 05/09/17 [History Confirmed 07/26/17] escitalopram 10 mg tablet 10 mg PO QDAY 05/09/17 [History Confirmed 07/26/17] hydroxyzine HCl 50 mg tablet 50 mg PO Q6H PRN tab 05/09/17 [History Confirmed 07/26/17] terazosin 1 mg capsule 1 mg PO QDAY cap 05/09/17 [History Confirmed 07/26/17] amlodipine 5 mg tablet 5 mg PO DAILY #90 tab 06/12/17 [Rx Confirmed 07/26/17] clopidogrel 75 mg tablet 75 mg PO DAILY #90 tab 06/12/17 [Rx Confirmed 07/26/17] atenolol 50 mg tablet 50 mg PO BID tab 07/23/17 [History Confirmed 07/26/17] furosemide 20 mg tablet 40 mg PO DAILY tab 07/23/17 [History Confirmed 07/26/17] potassium chloride ER 20 mEq tablet,extended release 20 meq PO TID tab 07/23/17 [History Confirmed 07/26/17] PFSH Medical History Atherosclerosis of 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 (Acute) Hypertension (Chronic) Status post right partial knee replacement (Acute) Arthritis (Chronic) Benign essential hypertension (Chronic) Benign prostatic hypertrophy without lower urinary tract symptoms (Chronic) Chronic kidney disease (Chronic) Coronary artery disease (Chronic) Gastroesophageal reflux disease (Chronic) Hyperlipidemia (Chronic) Normochromic normocytic anemia (Chronic) Chronic renal failure, stage 3 (moderate) (Chronic) Chest pain (Acute) Hypokalemia (Acute) Acute renal insufficiency (Acute) Surgical History 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 Dr. Brown performed a left upper extremity carbon dioxide fistulogram on 07/27/2017. Patient tolerated the procedure well. Findings included proximal and distal venous fistula stenosis treated with 5 x 80 mm ever cross angioplasty. Patient denies pain/discomfort. He denies numbness/tingling of the left hand and fingers. Patient is not currently on dialysis. Exam Extrem Other: Left forearm fistula- good pulse, bruit and thrill. No erythema or infection noted. Single suture removed. Steri-strips applied. Assessment AND Plan Problems 1. 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 Z99.2 08/02/17 1355 <Electronically signed by Jaylin New PA-C> Date Jaylin New PA-C Cosigner Signature: Date (if applicable) CC: OPERATIVE REPORT Observed: 07/27/2017 Status: F Source: [place] 12:14 PM [facility] Medical Records Department [address] [place] [address] Operative Report 07/27/17 1210 MR#: [id number] Acct: [id number] Name: ARIANNA GUILLERMO Rep #: [id number] : 1940 76 From: Liam Brown MD PCP: Nicolas HOWE,Justice García Status: REG SDC Y Location: [facility] Problem List (1) 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 76-year-old gentleman was taken to the special procedures lab. Was placed on the table. The left upper extremity sterilely prepped and draped. He received 0.5 mg Versed as sedation. He has some narcotic allergy. Under ultrasound guidance 2% lidocaine was instilled in the distal upper arm and then using a micropuncture needle was able to get retrograde access to the left upper arm cephalic vein. I was able to advance the micropuncture wire then up 6 [place] short sheath dilator. Using then a 4 [place] angled glide cath and an 035 angled Glidewire and gained access to the radial artery proximal to the anastomosis. I advanced a 4 [place] angled glide cath. Using carbon dioxide obtained a fistulogram of the forearm. This demonstrated an area of stenosis within the first 4 cm of the anastomosis and then also closer to the antecubital space. I placed a 5 x 80 mm ever cross balloon and perform balloon angioplasty of the arterial anastomosis and the entire length of the fistula. Inflation times for 2 minutes for 18 moises of pressure. Subsequently I removed the balloon reinserted the 4 [place] angled glide cath reobtained official gram of the forearm now demonstrating improved diameter and flow. I completed carbon dioxide images of the left upper arm and chest area. The sheath was removed. U suture of 4-0 nylon was placed. Hemostasis nicely intact. There was a good pulse, thrill, bruit at the completion without apparent complication. Blood loss was minimal. Images demonstrate a transposed left forearm cephalic vein radial artery arterial venous fistula with moderate stenosis within the first 3-4 cm and a degree of outflow stenosis in the proximal forearm. Subsequent to the angioplasty that has resolved. There is good upper arm cephalic and basilic vein outflow and good central venous outflow. Impression Successfully treated balloon maturation angioplasty left forearm transposed cephalic vein to radial artery arteriovenous hemodialysis fistula. Liam Brown M.D., F.A.C.S. 07/27/17 1214 <Electronically signed by Liam Brown MD> Date Liam Brown MD CC: Liam Brown MD; Justice Britt MD Signed Observed: 07/24/2017 Status: F Source: [place] RESPIRATORY PANEL 2:13 PM [facility] RP PANEL Normal Reference Range = Not Detected Copy of report sent to Infection Control Printer [id number] 07/25/17 0303 LSHOBE. RESULTS CALLED TO /NURSE LINE 07/25/17 3224 Francy Greer. 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, [address] CBC-COMPLETE BLOOD CNT Collected: 07/16/2017 Status: F Source: [place] NO DIFF 1:43 PM [facility] TYPE CODE TESTS RESULT OUT OF RANGE REFERENCE UNITS LAB L100.1000 4.4-11.0 K/mm3 Normal WBC 7.7 LAB L100.1200 4.6-6.2 M/mm3 Low RBC 3.88 LAB L100.1300 13.0-16.5 g/dl Low HGB 11.0 LAB L100.1400 40-54 % Low HCT 34.8 LAB L100.1500 80-94 fL Normal MCV 89.7 LAB L100.1600 27.0-32.0 pg Normal MCH 28.4 LAB L100.1700 32-36 g/gl Low MCHC 31.6 LAB L100.1810 11.6-14.6 % Normal RDW CV 14.3 LAB L100.1820 35.1-43.9 fl High RDW SD 46.4 LAB L100.1900 150-450 K/mm3 Normal PLT 234 LAB L100.2000 6.2-12.0 fl Normal MPV 10.7 Performed By: #### L100.0500 #### [facility] [address] [place], [address] BASIC METABOLIC Collected: 07/16/2017 Status: F Source: [place] PROFILE (BMP) 1:43 PM [facility] TYPE CODE TESTS RESULT OUT OF RANGE REFERENCE UNITS LAB L501.0100 74-106 mg/dL High GLU 155 Result Comment: Fasting Glucose result greater than or equal to 126 mg/dL suggests DIABETES MELLITUS per A.D.A. criteria. Please note revised GLUCOSE reference range effective 2017. LAB L501.1000 7-18 mg/dL High BUN 40 LAB L501.1100 0.70-1.30 mg/dL High CREAT,SERUM 3.70 Result Comment: The validity of the calculated GFR AND GFRAA in patients over 70 years has not been determined. Clinical correlation is essential. LAB L501.1110 >60 mL/min Low EST GFR 17 Result Comment: Non- GFR Calc LAB L501.1115 >60 mL/min Low EST GFR - AA 21 Result Comment: GFR Calc LAB L501.1300 10-20 RATIO Normal BUN/CRE 10.8 LAB L501.2200 8.5-10.1 mg/dL Low CA 7.9 LAB L501.5300 136-145 mmol/L NA Normal 142 LAB L501.5600 3.5-5.1 mmol/L Low K 3.2 LAB L501.5900 98-107 mmol/L CL Normal 104 LAB L501.6100 21.0-32.0 mmol/L Normal CO2 30.0 LAB L501.6200 5-15 Normal GAP 8 Performed By: #### L500.2500 #### [facility] [address] [place], [address] SURGERY VISIT REPORT Observed: 07/10/2017 Status: F Source: [place] 2:28 PM [facility] [address] [place] [address] OFFICE VISIT Date of Service: 07/10/17 MR#: [id number] Acct: [id number] Name: ARIANNA GUILLERMO Rep #: [id number] : 1940 Provider: Jaylin New PA-C Age/Sex: 76/M Location: [facility] Status: Signed Intake Vital Signs07/10/17 Height 5 ft 7 in 07/10/17 Weight: 300 lb 07/10/17 Body Mass Index (BMI) 47.0 Intake Visit Reasons: 2 weeks post op Treating Machine Operator Required: No Is patient in pain?: No Allergies JAMEEL Inhibitors Allergy (Verified 07/10/17 12:58) Unknown doxazosin mesylate [From Cardura] Allergy (Verified 07/10/17 12:58) Hives fosinopril sodium [From Monopril] Allergy (Verified 07/10/17 12:58) Hives lisinopril Allergy (Verified 07/10/17 12:58) Hives morphine Allergy (Verified 07/10/17 12:58) Other Medications Aspirin [Aspirin, Baby] 81 mg PO DAILY@0800 04/01/14 [History Confirmed 07/10/17] Finasteride [Proscar] 5 mg PO DAILY 04/01/14 [History Confirmed 07/10/17] Nitroglycerin [Nitrostat] 0.4 mg SUBLINGUAL Q5M PRN 02/01/15 [History Confirmed 07/10/17] Pravastatin [Pravachol] 20 mg PO QHS 02/27/15 [History Confirmed 07/10/17] Ranitidine HCl 150 mg PO DAILY 07/17/16 [History Confirmed 07/10/17] plecanatide 3 mg tablet 3 mg PO QDAY 04/16/17 [History Confirmed 07/10/17] levothyroxine 25 mcg tablet 25 mcg PO DAILY 04/27/17 [History Confirmed 07/10/17] linaclotide 72 mcg capsule 72 mcg PO QAM 04/27/17 [History Confirmed 07/10/17] Fluticasone 0.05% [Flonase Nasal [place]] 1 spray NASAL DAILY PRN 05/07/17 [History Confirmed 07/10/17] atenolol 50 mg tablet 50 mg PO BID tab 05/09/17 [History Confirmed 07/10/17] eluxadoline 75 mg tablet 150 mg PO ONCE tab 05/09/17 [History Confirmed 07/10/17] escitalopram 10 mg tablet 10 mg PO QDAY 05/09/17 [History Confirmed 07/10/17] furosemide 20 mg tablet 40 mg PO QDAY tab 05/09/17 [History Confirmed 07/10/17] hydroxyzine HCl 50 mg tablet 50 mg PO Q6H PRN tab 05/09/17 [History Confirmed 07/10/17] potassium chloride ER 20 mEq tablet,extended release 20 meq PO TID tab 05/09/17 [History Confirmed 07/10/17] terazosin 1 mg capsule 1 mg PO QDAY cap 05/09/17 [History Confirmed 07/10/17] amlodipine 5 mg tablet 5 mg PO DAILY #90 tab 06/12/17 [Rx Confirmed 07/10/17] clopidogrel 75 mg tablet 75 mg PO DAILY #90 tab 06/12/17 [Rx Confirmed 07/10/17] PFSH Medical History Atherosclerosis of 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 (Acute) Hypertension (Chronic) Status post right partial knee replacement (Acute) Arthritis (Chronic) Benign essential hypertension (Chronic) Benign prostatic hypertrophy without lower urinary tract symptoms (Chronic) Chronic kidney disease (Chronic) Coronary artery disease (Chronic) Gastroesophageal reflux disease (Chronic) Hyperlipidemia (Chronic) Normochromic normocytic anemia (Chronic) Chronic renal failure, stage 3 (moderate) (Chronic) Chest pain (Acute) Hypokalemia (Acute) Acute renal insufficiency (Acute) Surgical History 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 Patient is not currently on dialysis. 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 He will follow-up with Dr. Lang next week. Patient is currently on Plavix and ASA for A. Fib. Dr. Brown performed a transposition left forearm cephalic vein to radial artery arteriovenous fistula creation on 05/10/17. He denies increased pain or discomfort. He denies numbness/tingling in the hand or fingers. Patient has a history of dementia and is difficult to obtain a history from. His granddaughter has accompanied him today. She notes he has been performing hand exercises. Patient notes he does not return to the renal office until end of the month. ROS General General: No weight change, appetite, fatigue, colon cancer, breast cancer or weakness HEENT HEENT: No difficulty swallowing, eye injury, eye surgery, swollen glands or hoarseness Endo Endocrine: Yes thyroid disease Skin Skin: No rash or changing moles Breast Breast: No left breast lump, right breast lump, nipple discharge, breast pain, abnormal mammogram, abnormal US or breast enlargement Musc Musculoskeletal: Yes arthritis Cardio Cardiovascular: Yes atrial fibrillation Psych Psychiatric: No depression, anxiety or hearing voices Resp Respiratory: No shortness of breath, No sleep apnea, No cough, No COPD, No asthma, No emphysema, No wheezing Gastro Gastrointestinal: No abdominal pain, No nausea or vomiting, Yes diarrhea, No constipation, No blood in stool, No acid reflux, No hemorrhoids, No ulcers, No gallbladder problem, No black,tarry stools [place] Hematologic: Yes blood thinners Neuro Neurologic: No weakness, Yes frequent falls, Yes lack of coordination Exam Const General: cooperative, healthy appearing, comfortable, no acute distress [facility] Head: normal to inspection Eyes General: appearance normal, both eyes and all related structures Neck Neck mass: No Chest Breast Palpation: No nipple discharge Resp Effort AND Inspection: normal respiratory effort Cardio Rate: regular rate Rhythm: regular rhythm GI Inspection: normal to inspection, obesity, large pannus Palpation: soft Auscultation: normal bowel sounds Skin General: no rashes or lesions noted Neuro General: no focal motor deficits Extrem General: normal to inspection Other: Left forearm AV fistula- good pulse, diminished bruit and thrill. Psych Attitude: cooperative Assessment AND Plan Problems 1. Problem with dialysis access, initial encounter T80.470L Plan - Dr. Brown will plan to perform a left forearm arteriovenous fistulogram with carbon dioxide. Patient may continue on Plavix and ASA. Patient will need to obtain labs prior to the procedure. Procedure was explained in detail, risks and benefits. Patient, spouse and granddaughter have had the opportunity to ask and have questions answered. Patient verbally understands and agrees with the plan. Coding Level of Care Code Global Post Op Diagnoses Problem with dialysis access, initial encounter T82.898A Encounter type: initial encounter 07/10/17 1428 <Electronically signed by Jaylin New PA-C> Date Jaylin New PA-C Cosigner Signature: Date (if applicable) CC: VENOUS DUPLEX UPPER Observed: 06/29/2017 Status: F Source: [place] EXTREMITY 9:37 PM [facility] Cardiovascular Services [address] [place] [id number] Venous Duplex US - Rambo Extrem 06/29/17 1028 MR#: [id number] Acct: [id number] Name: ARIANNA GUILLERMO Rep #: [id number] : 1940 76 From: Pravin Akers MD Attending Dr: Nicolas HOWE,Justice García Status: REG CLI Ordering Dr: Justcie Britt MD Date: 06/29/17 Location: [facility] Sex: M C Admitted: Reason For Study: EDEMA Right Proximal Left Proximal Right jugular vein is spontaneous, widely Left jugular vein is spontaneous, widely patent, phasic, with no intraluminal patent, phasic, with no intraluminal echogenicity noted. echogenicity noted. Right subclavian vein is spontaneous, widely Left subclavian vein is spontaneous, widely patent, phasic, with no intraluminal patent, phasic, with no intraluminal echogenicity noted. echogenicity noted. Right Lower Arm Left Arm Right radial vein is compressible. Left axillary vein is spontaneous, patent, Right ulnar vein is compressible. phasic, competent, compressible and Right Arm demonstrates augmentation. Right axillary vein is spontaneous, patent, Left brachial vein is compressible. phasic, competent, compressible and Left cephalic vein is compressible. demonstrates augmentation. Left basilic vein is compressible. Right brachial vein is compressible. Left Lower Arm Right cephalic vein is compressible. Left radial vein is compressible. Right basilic vein is compressible. Left ulnar vein is compressible. < Interpretation Summary Deep veins of the upper extremities are bilaterally patent and compressible segmentally. There is no evidence of deep vein thrombosis on either side. The superficial veins of the upper extremities, the basilic and cephalic veins, are patent and compressible bilaterally. There is no evidence of upper extremity superficial thrombophlebitis on either side involving the veins imaged. Ordering Physician: Justice Britt Referring Physician: Justice Britt Chi Performed By: Poly Mcdonough, RDCS, RVT 06/29/172135 Date Pravin Akers MD CC: Justice Britt MD Date Dictated: 06/29/17 1028 Date Transcribed: 06/29/172135 Veterinary Epidemiologist: Signed THORACIC SPINE 3 Observed: 06/28/2017 Status: F Source: [place] VIEWS 5:12 PM [facility] Imaging Services [address] [place] [address] Thoracic Spine 3 Views MR#: [id number] Acct: [id number] Name: ARIANNA GUILLERMO Rep #: [id number] : 1940 M 76 From: aDnie Vergara DO PCP: Justice Britt MD, Chi Status: REG CLI Study: Thoracic Spine 3 Views Date of Exam: 06/28/17 Exam# [id number] Ordering Dr: Justice Britt MD STUDY: X-RAY - THORACIC SPINE REASON FOR EXAM: Male, 76 years old. Mid back pain. TECHNIQUE: 3 view(s) of the thoracic spine were obtained. COMPARISON: Chest, June 07, 2017. FINDINGS: Normal kyphosis of the thoracic spine. There is no substantial scoliosis. There is demineralization of the thoracic spine with endplate spondylosis. There is multilevel disc space narrowing of the thoracic spine. There is no evidence of acute fracture or loss of vertebral axial height. The soft tissue structures are unremarkable. RAD/Thoracic Spine 3 Views IMPRESSION: Mild degenerative changes of the thoracic spine without acute abnormality or interval change. Electronically Signed: Danie Vergara DO at 18:14 EST Tel [phone], Service support , CC: Justice Britt MD Veterinary Epidemiologist: Signed CBC W/DIFF, AUTOMATED Collected: 06/28/2017 Status: F Source: [place] 4:22 PM [facility] TYPE CODE TESTS RESULT OUT OF RANGE REFERENCE UNITS LAB L100.1000 4.4-11.0 K/mm3 Normal WBC 10.6 LAB L100.1200 4.6-6.2 M/mm3 Low RBC 3.95 LAB L100.1300 13.0-16.5 g/dl Low HGB 11.5 LAB L100.1400 40-54 % Low HCT 35.4 LAB L100.1500 80-94 fL Normal MCV 89.6 LAB L100.1600 27.0-32.0 pg Normal MCH 29.1 LAB L100.1700 32-36 g/gl Normal MCHC 32.5 LAB L100.1810 11.6-14.6 % Normal RDW CV 14.5 LAB L100.1820 35.1-43.9 fl High RDW SD 46.2 LAB L100.1900 150-450 K/mm3 Normal PLT 241 LAB L100.2000 6.2-12.0 fl Normal MPV 10.9 LAB L100.2100 47-70 % High NEUT% 76.1 LAB L100.2200 19-41 % Low LY% 13.2 LAB L100.2300 0-10 % Normal MONO% 8.2 LAB L100.2400 0-5 % Normal EO% 2.1 LAB L100.2500 0-1 % Normal BASO% 0.2 LAB L100.2550 0.0-0.9 % Normal IM GRAN % 0.200 Result Comment: IG% - Immature Granulocytes (promyelocytes, myelocytes and metamyelocytes) > 1% indicates that a LEFT SHIFT is Present. LAB L100.2620 2.0-7.7 X10 3/uL High Absolute Neut 8.1 LAB L100.2720 0.83-4.51 X10 3/ul Normal Absolute Lymph 1.40 Performed By: #### L100.0100 #### [facility] [address] [place], [address] BASIC METABOLIC Collected: 06/28/2017 Status: F Source: [place] PROFILE ([facility]) 4:22 PM [facility] TYPE CODE TESTS RESULT OUT OF RANGE REFERENCE UNITS LAB L501.0100 74-106 mg/dL High GLU 107 Result Comment: Fasting Glucose result from 100 to 125 mg/dL suggests IMPAIRED HOMEOSTASIS per A.D.A. criteria. Please note revised GLUCOSE reference range effective 2017. LAB L501.1000 7-18 mg/dL High BUN 33 LAB L501.1100 0.70-1.30 mg/dL High CREAT,SERUM 2.97 Result Comment: The validity of the calculated GFR AND GFRAA in patients over 70 years has not been determined. Clinical correlation is essential. LAB L501.1110 >60 mL/min Low EST GFR 22 Result Comment: Non- GFR Calc LAB L501.1115 >60 mL/min Low EST GFR - AA 26 Result Comment: GFR Calc LAB L501.1300 10-20 RATIO Normal BUN/CRE 11.1 LAB L501.2200 8.5-10.1 mg/dL Low CA 8.2 LAB L501.5300 136-145 mmol/L NA Normal 141 LAB L501.5600 3.5-5.1 mmol/L K Normal 4.9 Result Comment: Moderate Hemolysis, Result may be falsely increased. LAB L501.5900 98-107 mmol/L High CL 108 LAB L501.6100 21.0-32.0 mmol/L Normal CO2 24.0 LAB L501.6200 5-15 Normal 9 GAP Performed By: #### L500.2500 #### [facility] [address] [place], [address] RIBS UNI MIN 3V Observed: 06/25/2017 Status: F Source: [place] W/PA CHEST 10:37 AM [facility] Imaging Services [address] [place] [address] Ribs Uni Min 3V w/PA Chest MR#: [id number] Acct: [id number] Name: ARIANNA GUILLERMO Rep #: [id number] : 1940 M 76 From: Seng Verde MD PCP: Nicolas HOWE,Justice García Status: REG CLI Study: Ribs Uni Min 3V w/PA Chest Date of Exam: 06/25/17 Exam# [id number] Ordering Dr: Justice Britt MD STUDY: X-RAY - UNILATERAL RIBS ( RIGHT ) WITH CHEST REASON FOR EXAM: Male, 76 years old. Fall. Pain. TECHNIQUE - RIBS: 6 view(s) of the ribs. TECHNIQUE - CHEST: Single frontal view of the chest. COMPARISON: 06/07/2017, 07/14/16. FINDINGS - RIBS: Normal visualized ribs without a demonstrated fracture. FINDINGS - CHEST: Normal lung volumes. Stable nodular areas of scarring and/or calcified granulomas in both upper lobes. No infiltrates. No effusions. Normal size heart. Normal mediastinum and iftikhar. Normal visualized pulmonary arteries. There is atherosclerotic tortuosity of the aortic arch and descending thoracic aorta. There are diffuse degenerative changes of the visualized thoracic spine. Normal visualized ribs, clavicles, and shoulders. There is no demonstrated abnormality of the visualized soft tissue structures of the upper abdomen. RAD/Ribs Uni Min 3V w/PA Chest IMPRESSION: RIBS: Normal x-ray examination of the ribs. CHEST: No acute chest disease. Electronically Signed: Seng Verde MD at 23:55 EST , Service support , CC: Justice Britt MD Veterinary Epidemiologist: Signed SURGERY VISIT REPORT Observed: 06/19/2017 Status: F Source: [place] 4:31 PM [facility] [address] [place] [address] OFFICE VISIT Date of Service: 06/19/17 MR#: [id number] Acct: [id number] Name: ARIANNA GUILLERMO Rep #: [id number] : 1940 Provider: Jaylin New PA-C Age/Sex: 76/M Location: [facility] Status: Signed Intake Intake Visit Reasons: F/U 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 Is patient in pain?: No Allergies JAMEEL Inhibitors Allergy (Verified 06/19/17 12:57) Unknown doxazosin mesylate [From Cardura] Allergy (Verified 06/19/17 12:57) Hives fosinopril sodium [From Monopril] Allergy (Verified 06/19/17 12:57) Hives lisinopril Allergy (Verified 06/19/17 12:57) Hives morphine Allergy (Verified 06/19/17 12:57) Other Medications Aspirin [Aspirin, Baby] 81 mg PO DAILY@0800 04/01/14 [History Confirmed 06/19/17] Finasteride [Proscar] 5 mg PO DAILY 04/01/14 [History Confirmed 06/19/17] Nitroglycerin [Nitrostat] 0.4 mg SUBLINGUAL Q5M PRN 02/01/15 [History Confirmed 06/19/17] Pravastatin [Pravachol] 20 mg PO QHS 02/27/15 [History Confirmed 06/19/17] Ranitidine HCl 150 mg PO DAILY 07/17/16 [History Confirmed 06/19/17] plecanatide 3 mg tablet 3 mg PO QDAY 04/16/17 [History Confirmed 06/19/17] levothyroxine 25 mcg tablet 25 mcg PO DAILY 04/27/17 [History Confirmed 06/19/17] linaclotide 72 mcg capsule 72 mcg PO QAM 04/27/17 [History Confirmed 06/19/17] Fluticasone 0.05% [Flonase Nasal [place]] 1 spray NASAL DAILY PRN 05/07/17 [History Confirmed 06/19/17] atenolol 50 mg tablet 50 mg PO BID tab 05/09/17 [History Confirmed 06/19/17] eluxadoline 75 mg tablet 150 mg PO ONCE tab 05/09/17 [History Confirmed 06/19/17] escitalopram 10 mg tablet 10 mg PO QDAY 05/09/17 [History Confirmed 06/19/17] furosemide 20 mg tablet 40 mg PO QDAY tab 05/09/17 [History Confirmed 06/19/17] hydroxyzine HCl 50 mg tablet 50 mg PO Q6H PRN tab 05/09/17 [History Confirmed 06/19/17] potassium chloride ER 20 mEq tablet,extended release 20 meq PO TID tab 05/09/17 [History Confirmed 06/19/17] terazosin 1 mg capsule 1 mg PO QDAY cap 05/09/17 [History Confirmed 06/19/17] amlodipine 5 mg tablet 5 mg PO DAILY #90 tab 06/12/17 [Rx Confirmed 06/19/17] clopidogrel 75 mg tablet 75 mg PO DAILY #90 tab 06/12/17 [Rx Confirmed 06/19/17] [facility] Medical History Atherosclerosis of 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 (Acute) Hypertension (Chronic) Status post right partial knee replacement (Acute) Arthritis (Chronic) Benign essential hypertension (Chronic) Benign prostatic hypertrophy without lower urinary tract symptoms (Chronic) Chronic kidney disease (Chronic) Coronary artery disease (Chronic) Gastroesophageal reflux disease (Chronic) Hyperlipidemia (Chronic) Normochromic normocytic anemia (Chronic) Chronic renal failure, stage 3 (moderate) (Chronic) Chest pain (Acute) Hypokalemia (Acute) Acute renal insufficiency (Acute) Surgical History 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 (Acute) History of bilateral hip arthroplasty (Acute) History of angioplasty (Chronic) Family History (Reviewed 06/19/17 @ 12:57 by Gracie Agudelo Father Hypertension Cancer Brother CAD (coronary artery disease) Mother Hypertension Sister Hypertension Son Atrial fibrillation Social History Smoking Status: Former smoker alcohol intake: never substance use type: does not use HPI HPI HPI: ARIANNA GUILLERMO, is a 76 M I am following for chronic renal failure. Dr. Brown performed a transposition left forearm cephalic vein to radial artery arteriovenous fistula creation on 05/10/17. He denies increased pain or discomfort. He denies numbness/tingling in the hand or fingers. Patient has a history of dementia and is difficult to obtain a history from. His granddaughter has accompanied him today. She notes he has been performing hand exercises. 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 Patient notes he does not return to the renal office until end of next month. Exam Extrem Other: left forearm AV fistula- incision nicely healed. good pulse, bruit and thrill. Assessment AND Plan Problems 1. Chronic progressive renal failure, stage 3 (moderate) N18.3 Plan - Continue hand exercises - Follow-up in 1 month Coding Level of Care Code Global Post Op Diagnoses Chronic progressive renal failure, stage 3 (moderate) N18.3 06/19/17 1631 <Electronically signed by Jaylin New PA-C> Date Jaylin New PA-C Cosigner Signature: Date (if applicable) CC: BASIC METABOLIC Collected: 06/18/2017 Status: F Source: [place] PROFILE (BMP) 10:43 AM [facility] TYPE CODE TESTS RESULT OUT OF RANGE REFERENCE UNITS LAB L501.0100 74-106 mg/dL High GLU 145 Result Comment: Fasting Glucose result greater than or equal to 126 mg/dL suggests DIABETES MELLITUS per A.D.A. criteria. Please note revised GLUCOSE reference range effective 2017. LAB L501.1000 7-18 mg/dL High BUN 33 LAB L501.1100 0.70-1.30 mg/dL High CREAT,SERUM 2.90 Result Comment: The validity of the calculated GFR AND GFRAA in patients over 70 years has not been determined. Clinical correlation is essential. LAB L501.1110 >60 mL/min Low EST GFR 22 Result Comment: Non- GFR Calc LAB L501.1115 >60 mL/min Low EST GFR - AA 27 Result Comment: GFR Calc LAB L501.1300 10-20 RATIO Normal BUN/CRE 11.4 LAB L501.2200 8.5-10.1 mg/dL Low CA 7.7 LAB L501.5300 136-145 mmol/L NA Normal 142 LAB L501.5600 3.5-5.1 mmol/L K Normal 3.5 LAB L501.5900 98-107 mmol/L CL Normal 105 LAB L501.6100 21.0-32.0 mmol/L Normal CO2 30.0 LAB L501.6200 5-15 Normal GAP 7 Performed By: #### L500.2500 #### [facility] [address] [facility] [place], [address] Observed: 06/14/2017 Status: F Source: [place] RESPIRATORY PANEL 12:25 PM [facility] Copy of report sent to Infection Control Printer [id number] 06/15/17 0632 HOBE. RP PANEL Normal Reference Range = Not Detected RESULTS CALLED TO DR BRITT NURSE LINE 06/15/17 9605 Casie Chawla. REPORT READ BACK BY VOICE MAIL. ADENOVIRUS Not Detected HUMAN METAPHNEUMO Not Detected INFLUENZA A Not Detected INFLUENZA A (SUBTYPE H1) Not Detected INFLUENZA A (SUBTYPE H3) Not Detected INFLUENZA B Positive for INFLUENZA B by NAAT technology PARAINFLUENZA 1 Not Detected PARAINFLUENZA 2 Not Detected PARAINFLUENZA 3 Not Detected PARAINFLUENZA 4 Not Detected RHINOVIRUS Not Detected RSV A Not Detected RSV B Not Detected NAAT METHOD Testing was performed using nucleic acid amplification ORGANISM 1: INFLUENZAE B Performed By: #### M100.638 #### [facility] [address] [place], [address] CBC W/DIFF, AUTOMATED Collected: 06/11/2017 Status: F Source: [place] 4:23 PM [facility] TYPE CODE TESTS RESULT OUT OF RANGE REFERENCE UNITS LAB L100.1000 4.4-11.0 K/mm3 Normal WBC 6.0 LAB L100.1200 4.6-6.2 M/mm3 Low RBC 4.03 LAB L100.1300 13.0-16.5 g/dl Low HGB 11.4 LAB L100.1400 40-54 % Low HCT 35.5 LAB L100.1500 80-94 fL Normal MCV 88.1 LAB L100.1600 27.0-32.0 pg Normal MCH 28.3 LAB L100.1700 32-36 g/gl Normal MCHC 32.1 LAB L100.1810 11.6-14.6 % Normal RDW CV 14.0 LAB L100.1820 35.1-43.9 fl High RDW SD 44.5 LAB L100.1900 150-450 K/mm3 Normal PLT 322 LAB L100.2000 6.2-12.0 fl Normal MPV 10.7 LAB L100.2100 47-70 % Normal NEUT% 64.4 LAB L100.2200 19-41 % Normal LY% 22.6 LAB L100.2300 0-10 % High MONO% 11.6 LAB L100.2400 0-5 % Normal EO% 0.8 LAB L100.2500 0-1 % Normal BASO% 0.3 LAB L100.2550 0.0-0.9 % Normal IM GRAN % 0.300 Result Comment: IG% - Immature Granulocytes (promyelocytes, myelocytes and metamyelocytes) > 1% indicates that a LEFT SHIFT is Present. LAB L100.2620 2.0-7.7 X10 3/uL Normal Absolute Neut 3.9 LAB L100.2720 0.83-4.51 X10 3/ul Normal Absolute Lymph 1.36 Performed By: #### L100.0100 #### [facility] [address]. [place], [place], [address] COMPREHENSIVE METABOLIC Collected: 06/11/2017 Status: F [facility] TYPE CODE TESTS RESULT OUT OF RANGE REFERENCE UNITS LAB L501.0100 74-106 mg/dL Normal GLU 92 Result Comment: Please note revised GLUCOSE reference range effective 2017. LAB L501.1000 7-18 mg/dL High BUN 35 LAB L501.1100 0.70-1.30 mg/dL High CREAT,SERUM 3.08 Result Comment: The validity of the calculated GFR AND GFRAA in patients over 70 years has not been determined. Clinical correlation is essential. LAB L501.1110 >60 mL/min Low EST GFR 21 Result Comment: Non- GFR Calc LAB L501.1115 >60 mL/min Low EST GFR - AA 25 Result Comment: GFR Calc LAB L501.1300 10-20 RATIO Normal BUN/CRE 11.4 LAB L501.1500 6.4-8.2 g/dL T Normal PROT 6.7 LAB L501.1800 3.2-5.0 g/dL Low ALB 3.0 LAB L501.1950 2.2-4.2 g/dL Normal GLOB 3.7 LAB L501.2000 0.9-2.4 RATIO Low A/G 0.8 LAB L501.2200 8.5-10.1 mg/dL Low CA 8.0 LAB L501.4100 15-37 U/L Normal AST 17 LAB L501.4305 45-117 U/L Normal ALK P 77 LAB L501.4405 16-61 U/L Normal ALT 22 Result Comment: Please note revised ALT reference range effective 2017. LAB L501.4600 0.20-1.00 mg/dL Normal T BILI 0.30 LAB L501.5300 136-145 mmol/L Normal NA 143 LAB L501.5600 3.5-5.1 mmol/L Low K 3.2 LAB L501.5900 98-107 mmol/L Normal CL 106 LAB L501.6100 21.0-32.0 mmol/L Normal CO2 27.0 LAB L501.6200 5-15 Normal GAP 10 Performed By: #### L500.4050, L501.1400, L501.9520 #### [facility] [address] [place], [address] URIC ACID Collected: 06/11/2017 Status: F Source: [place] 4:23 PM [facility] TYPE CODE TESTS RESULT OUT OF RANGE REFERENCE UNITS LAB L501.1400 3.5-7.2 mg/dL Normal URIC 3.7 Result Comment: The drugs N-Acetylcysteine and Metamizole may falsely depress this assay. Performed By: #### L500.4050, L501.1400, L501.9520 #### [facility] [address] [place], [place], [address] THYROID STIM HORMONE Collected: 06/11/2017 Status: F Source: [place] (TSH) 4:23 PM [facility] TYPE CODE TESTS RESULT OUT OF RANGE REFERENCE UNITS LAB L501.9520 0.358-3.74 uIU/mL Normal TSH 1.63 Performed By: #### L500.4050, L501.1400, L501.9520 #### [facility] [address] [place], [address] CBC W/DIFF, AUTOMATED Collected: 06/07/2017 Status: F Source: [place] 5:44 PM [facility] TYPE CODE TESTS RESULT OUT OF RANGE REFERENCE UNITS LAB L100.1000 4.4-11.0 K/mm3 Normal WBC 8.9 LAB L100.1200 4.6-6.2 M/mm3 Low RBC 3.80 LAB L100.1300 13.0-16.5 g/dl Low HGB 10.7 LAB L100.1400 40-54 % Low HCT 34.1 LAB L100.1500 80-94 fL Normal MCV 89.7 LAB L100.1600 27.0-32.0 pg Normal MCH 28.2 LAB L100.1700 32-36 g/gl Low MCHC 31.4 LAB L100.1810 11.6-14.6 % Normal RDW CV 14.3 LAB L100.1820 35.1-43.9 fl High RDW SD 47.0 LAB L100.1900 150-450 K/mm3 Normal PLT 281 LAB L100.2000 6.2-12.0 fl Normal MPV 10.2 LAB L100.2100 47-70 % High NEUT% 76.9 LAB L100.2200 19-41 % Low LY% 11.8 LAB L100.2300 0-10 % Normal MONO% 9.2 LAB L100.2400 0-5 % Normal EO% 1.8 LAB L100.2500 0-1 % Normal BASO% 0.2 LAB L100.2550 0.0-0.9 % Normal IM GRAN % 0.100 Result Comment: IG% - Immature Granulocytes (promyelocytes, myelocytes and metamyelocytes) > 1% indicates that a LEFT SHIFT is Present. LAB L100.2620 2.0-7.7 X10 3/uL Normal Absolute Neut 6.8 LAB L100.2720 0.83-4.51 X10 3/ul Normal Absolute Lymph 1.04 Performed By: #### L100.0100 #### [facility] [address] [place], [address] D-DIMER QUANTITATIVE Collected: 06/07/2017 Status: F Source: [place] (DVT/PE) 5:44 PM [facility] TYPE CODE TESTS RESULT OUT OF RANGE REFERENCE UNITS LAB L300.8000 0.27-0.49 FEU/ug/m High alert D-DIMER 1.38 QUANT Result Comment: RESULTS CALLED TO 06/07/17 1840 Shankar Pulido. REPORT READ BACK BY SAME . D-Dimer ELEVATED (>0.49): Additional studies and clinical assessments are indicated to conclude diagnosis of: Deep Vein Thrombosis (DVT) or Pulmonary Embolism (PE) Performed By: #### L300.8000 #### [facility] [address] [place], [place], [address] COMPREHENSIVE METABOLIC Collected: 06/07/2017 Status: F Source: [place] PROFIL 5:44 PM [facility] TYPE CODE TESTS RESULT OUT OF RANGE REFERENCE UNITS LAB L501.0100 74-106 mg/dL High GLU 141 Result Comment: Fasting Glucose result greater than or equal to 126 mg/dL suggests DIABETES MELLITUS per A.D.A. criteria. Please note revised GLUCOSE reference range effective 2017. LAB L501.1000 7-18 mg/dL High BUN 39 LAB L501.1100 0.70-1.30 mg/dL High CREAT,SERUM 3.42 Result Comment: The validity of the calculated GFR AND GFRAA in patients over 70 years has not been determined. Clinical correlation is essential. LAB L501.1110 >60 mL/min Low EST GFR 19 Result Comment: Non- GFR Calc LAB L501.1115 >60 mL/min Low EST GFR - AA 22 Result Comment: GFR Calc LAB L501.1300 10-20 RATIO Normal BUN/CRE 11.4 LAB L501.1500 6.4-8.2 g/dL T Normal PROT 6.4 LAB L501.1800 3.2-5.0 g/dL Low ALB 2.9 LAB L501.1950 2.2-4.2 g/dL Normal GLOB 3.5 LAB L501.2000 0.9-2.4 RATIO Low A/G 0.8 LAB L501.2200 8.5-10.1 mg/dL Low CA 8.3 LAB L501.4100 15-37 U/L Low AST 12 LAB L501.4305 45-117 U/L Normal ALK P 68 LAB L501.4405 16-61 U/L Low ALT 15 Result Comment: Please note revised ALT reference range effective 2017. LAB L501.4600 0.20-1.00 mg/dL Normal T BILI 0.20 LAB L501.5300 136-145 mmol/L Normal NA 143 LAB L501.5600 3.5-5.1 mmol/L Normal K 3.9 LAB L501.5900 98-107 mmol/L Normal CL 103 LAB L501.6100 21.0-32.0 mmol/L Normal CO2 31.0 LAB L501.6200 5-15 Normal GAP 9 Performed By: #### L500.4050, L501.2300, L501.5200, L501.9520 #### [facility] [address] [place], [place], [address] PHOSPHORUS Collected: 06/07/2017 Status: F Source: [place] 5:44 PM [facility] TYPE CODE TESTS RESULT OUT OF RANGE REFERENCE UNITS LAB L501.2300 2.5-4.9 mg/dL Normal PHOS 3.8 Performed By: #### L500.4050, L501.2300, L501.5200, L501.9520 #### [facility] [address] [place], [place], [address] MAGNESIUM Collected: 06/07/2017 Status: F Source: [place] 5:44 PM [facility] TYPE CODE TESTS RESULT OUT OF RANGE REFERENCE UNITS LAB L501.5200 1.6-2.6 mg/dL Normal MG 2.4 Result Comment: Please note revised Magnesium reference range effective 2017. Performed By: #### L500.4050, L501.2300, L501.5200, L501.9520 #### [facility] [address] [place], [address] THYROID STIM HORMONE Collected: 06/07/2017 Status: F Source: [place] (TSH) 5:44 PM [facility] TYPE CODE TESTS RESULT OUT OF RANGE REFERENCE UNITS LAB L501.9520 0.358-3.74 uIU/mL Normal TSH 2.14 Performed By: #### L500.4050, L501.2300, L501.5200, L501.9520 #### [facility] [address] [place], [address] BNP,B-TYPE NATRIURETIC Collected: 06/07/2017 Status: F Source: [place] PEPTIDE 5:44 PM [facility] TYPE CODE TESTS RESULT OUT OF RANGE REFERENCE UNITS LAB L503.6620 0-100 pg/mL High B-TYPE 254.3 SERINA PEP Performed By: #### L503.6620 #### [facility] [address] [place], [address] Observed: 06/07/2017 Status: F Source: [place] CULTURE, URINE 5:44 PM [facility] Urine Culture ORGANISM 1: Enterococcus faecalis [place] Count 11,000-25,000 Enterococcus faecalis: REACTION Ampicillin $ <=2 S Benzylpenicillin NF 8 S Ciprofloxacin $ >=8 R Gentamicin SYN-R R Levofloxacin $ >=8 R Linezolid $$$$ 1 S Nitrofurantoin $ <=16 S Streptomycin $ SYN-S S Tetracycline NF >=16 R Vancomycin $ 1 S (NF) indicates non-formulary drug at [facility]. Approval by Infectious Disease Specialist required before non-formulary drugs may be ordered and/or dispensed. * CLSI guidelines does not recommend testing of cephalosporins. This interpretation is deduced from Beta-lactam/penicillin results. Performed By: #### M100.0650 #### [facility] [address] [place], [address] ABD INC DECUB Observed: 06/07/2017 Status: F Source: [place] AND/OR ERECT 5:21 PM [facility] Imaging Services [address] [place] [address] Abd Inc Decub and/or Erect MR#: [id number] Acct: [id number] Name: ARIANNA GUILLERMO Rep #: [id number] : 1940 M 76 From: Jane Strickland MD PCP: Justice Britt MD, Chi Status: REG CLI Study: Abd Inc Decub and/or Erect Date of Exam: 06/07/17 Exam# [id number] Ordering Dr: Justice Britt MD STUDY: X-RAY - ABDOMEN/PELVIS REASON FOR EXAM: Male, 76 years old. Diarrhea TECHNIQUE: For AP images of the abdomen were obtained. COMPARISON: None. FINDINGS: Normal visualized lung bases. There is an unremarkable bowel gas pattern. There is no demonstrated free abdominal air. The visualized liver, spleen and kidneys are grossly normal in size and morphology. Normal soft tissue structures. There are diffuse degenerative changes of the visualized lumbar spine. There are pedicle screws noted within the lower lumbar spine. Bilateral hip arthroplasties are in place. RAD/Abd Inc Decub and/or Erect IMPRESSION: Nonspecific bowel gas pattern. Electronically Signed: Jane Strickland MD at 18:12 EST Tel , Service support , CC: Justice Britt MD Veterinary Epidemiologist: Signed CHEST PA AND LATERAL Observed: 06/07/2017 Status: F Source: [place] 5:21 PM [facility] Imaging Services [address] [place] [address] Chest PA and Lateral MR#: [id number] Acct: [id number] Name: ARIANNA GUILLERMO Rep #: [id number] : 1940 M 76 From: Jane Strickland MD PCP: Justice Britt MD, Chi Status: REG CLI Study: Chest PA and Lateral Date of Exam: 06/07/17 Exam# [id number] Ordering Dr: Justice Britt MD STUDY: X-RAY CHEST REASON FOR EXAM: Male, 76 years old. Delirium TECHNIQUE: PA and lateral views of the chest. COMPARISON: November 29, 2016. FINDINGS: There are ill-defined opacities within the mid and lower left lung and right lung base. There is perihilar fullness associated with indistinct pulmonary bronchovasculature. Normal size heart. There is atherosclerotic calcification of the aortic arch with tortuosity. There are diffuse degenerative changes of the visualized thoracic spine. Normal visualized ribs, clavicles, and shoulders. There is no demonstrated abnormality of the visualized soft tissue structures of the upper abdomen. RAD/Chest PA and Lateral IMPRESSION: Bilateral ill-defined opacities may reflect some combination of edema, pneumonia and/or atelectasis. Electronically Signed: Jaen Strickland MD at 18:17 EST Tel , Service support , CC: Justice Britt MD Veterinary Epidemiologist: Signed BRAIN/HEAD WITHOUT Observed: 06/07/2017 Status: F Source: [place] CONTRAST 5:16 PM [facility] Imaging Services [address] [place] [address] Brain/Head without Contrast MR#: [id number] Acct: [id number] Name: ARIANNA GUILLERMO Rep #: [id number] : 1940 M 76 From: Danie Vergara DO PCP: Justice Britt MD, Chi Status: REG CLI Study: Brain/Head without Contrast Date of Exam: 06/07/17 Exam# [id number] Ordering Dr: Justice Britt MD STUDY: CT BRAIN WITHOUT CONTRAST REASON FOR EXAM: Male, 76 years old. Delirium. Confusion. RADIATION DOSAGE (If Supplied By Facility): CTDIvol = ( 60.81 ) mGy, DLP = ( 1135.50 ) mGycm TECHNIQUE: Transaxial CT imaging of the brain was performed without administration of intravenous contrast material. Individualized dose optimization techniques were used for this CT. COMPARISON: None. FINDINGS: Normal soft tissue structures. Normal calvarium. There is disproportionate enlargement of the lateral and third ventricles, as compared to the extra-axial spaces. The findings suggest normal pressure hydrocephalus (NPH). There are areas of decreased attenuation within the white matter tracts of the supratentorial brain, consistent with microvascular disease changes. Normal basal ganglia and thalami. Normal brainstem. Normal cerebellum. There is no intracranial hemorrhage. There are no findings of an acute ischemic infarction. Normal visualized paranasal sinuses. CT/Brain/Head without Contrast IMPRESSION: Chronic involutional changes without evidence of acute intracranial or calvarial abnormality. Electronically Signed: Danie Vergara DO at 17:42 EST Tel [phone], Service support , CC: Justice Britt MD Veterinary Epidemiologist: Signed SURGERY VISIT REPORT Observed: 06/05/2017 Status: F Source: [place] 1:41 PM [facility] [address] [place] [address] OFFICE VISIT Date of Service: 06/05/17 MR#: [id number] Acct: [id number] Name: JONOJORJEARIANNA Nohemy Rep #: [id number] : 1940 Provider: Jaylin New PA-C Age/Sex: 76/M Location: [facility] [place] Status: Signed Intake Intake Visit Reasons: F/U 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 Is patient in pain?: No Allergies JAMEEL Inhibitors Allergy (Verified 06/05/17 12:54) Unknown doxazosin mesylate [From Cardura] Allergy (Verified 06/05/17 12:54) Hives fosinopril sodium [From Monopril] Allergy (Verified 06/05/17 12:54) Hives lisinopril Allergy (Verified 06/05/17 12:54) Hives morphine Allergy (Verified 06/05/17 12:54) Other Medications Aspirin [Aspirin, Baby] 81 mg PO DAILY@0800 04/01/14 [History Confirmed 06/05/17] Finasteride [Proscar] 5 mg PO DAILY 04/01/14 [History Confirmed 06/05/17] Nitroglycerin [Nitrostat] 0.4 mg SUBLINGUAL Q5M PRN 02/01/15 [History Confirmed 06/05/17] Clopidogrel Bisulfate [Plavix] 75 mg PO DAILY 02/27/15 [History Confirmed 06/05/17] Pravastatin [Pravachol] 20 mg PO QHS 02/27/15 [History Confirmed 06/05/17] Amlodipine [Norvasc] 5 mg PO DAILY 07/17/16 [History Confirmed 06/05/17] Ranitidine HCl 150 mg PO DAILY 07/17/16 [History Confirmed 06/05/17] plecanatide 3 mg tablet 3 mg PO QDAY 04/16/17 [History Confirmed 06/05/17] levothyroxine 25 mcg tablet 25 mcg PO DAILY 04/27/17 [History Confirmed 06/05/17] linaclotide 72 mcg capsule 72 mcg PO QAM 04/27/17 [History Confirmed 06/05/17] Fluticasone 0.05% [Flonase Nasal [place]] 1 spray NASAL DAILY PRN 05/07/17 [History Confirmed 06/05/17] atenolol 50 mg tablet 50 mg PO BID tab 05/09/17 [History Confirmed 06/05/17] eluxadoline 75 mg tablet 150 mg PO ONCE tab 05/09/17 [History Confirmed 06/05/17] escitalopram 10 mg tablet 10 mg PO QDAY 05/09/17 [History Confirmed 06/05/17] furosemide 20 mg tablet 40 mg PO QDAY tab 05/09/17 [History Confirmed 06/05/17] hydroxyzine HCl 50 mg tablet 50 mg PO Q6H PRN tab 05/09/17 [History Confirmed 06/05/17] potassium chloride ER 20 mEq tablet,extended release 20 meq PO TID tab 05/09/17 [History Confirmed 06/05/17] terazosin 1 mg capsule 1 mg PO QDAY cap 05/09/17 [History Confirmed 06/05/17] PFSH Medical History Atherosclerosis of 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 (Acute) Hypertension (Chronic) Status post right partial knee replacement (Acute) Arthritis (Chronic) Benign essential hypertension (Chronic) Benign prostatic hypertrophy without lower urinary tract symptoms (Chronic) Chronic kidney disease (Chronic) Coronary artery disease (Chronic) Gastroesophageal reflux disease (Chronic) Hyperlipidemia (Chronic) Normochromic normocytic anemia (Chronic) Chronic renal failure, stage 3 (moderate) (Chronic) Chest pain (Acute) Hypokalemia (Acute) Acute renal insufficiency (Acute) Surgical History 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 Dr. Brown performed a transposition left forearm cephalic vein to radial artery arteriovenous fistula creation on 05/10/17. He denies increased pain or discomfort. He denies numbness/tingling in the hand or fingers. Patient has a history of dementia and is difficult to obtain a history from. His granddaughter has accompanied him today. She notes he has not been performing hand exercises. His believes they have an appointment with the supervisor porcelain department next week. Exam Extrem Other: left forearm transposed AV fistula- good pulse. Distant thrill and bruit. Nicely healed incision. NO swelling noted Assessment AND Plan Problems 1. 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 VENOUS DUPLEX LOWER Observed: 05/31/2017 Status: F Source: [place] EXTREMITY 5:33 PM [facility] Cardiovascular Services [address] [place] [address] Venous Duplex US - Rambo Extrem 05/31/17 1329 MR#: [id number] Acct: [id number] Name: ARIANNA GUILLERMO Rep #: [id number] : 1940 76 From: Pravin Akers MD Attending Dr: Justice Britt MD, Chi Status: REG CLI Ordering Dr: Justice Britt MD Date: 05/31/17 Location: [facility] Sex: M C Admitted: Reason For Study: edema RIGHT LEFT GSV is normal. GSV is normal. CFV is compressible, spontaneous, phasic, CFV is compressible, spontaneous, phasic, competent and demonstrates normal competent, and demonstrates normal augmentation. augmentation. FV is compressible, spontaneous, phasic, FV is compressible, spontaneous, phasic, competent and demonstrates normal competent and demonstrates normal augmentation. augmentation. POP V is compressible, spontaneous, phasic, POP V is compressible, spontaneous, phasic, competent and demonstrates normal competent and demonstrates normal augmentation. augmentation. T/P Trunk is compressible. T/P Trunk is compressible. PTV is compressible. PTV is compressible. RT PerV is compressible. LT PerV is compressible. Procedure Exam performed in department. The exam was of fair technical quality due to edema. Limited views of calf veins due to edema. A preliminary report was called and/or faxed to Dr. Britt. Interpretation Summary Deep veins of the lower extremities are bilaterally patent and compressible segmentally. There is no evidence of deep vein thrombosis on either side. Valvular competence appears intact within the proximal deep venous systems bilaterally. The greater saphenous veins appear bilaterally patent and compressible segmentally. Ordering Physician: Justice Britt Performed By: Obi Valentin RVT 05/31/17 1733 Date Pravin Akers MD CC: Justice Britt MD Date Dictated: 05/31/17 1329 Date Transcribed: 05/31/17 4673 Veterinary Epidemiologist: Signed CBC W/DIFF, AUTOMATED Collected: 05/31/2017 Status: F Source: [place] 9:08 AM [facility] TYPE CODE TESTS RESULT OUT OF RANGE REFERENCE UNITS LAB L100.1000 4.4-11.0 K/mm3 Normal WBC 9.5 LAB L100.1200 4.6-6.2 M/mm3 Low RBC 4.06 LAB L100.1300 13.0-16.5 g/dl Low HGB 11.6 LAB L100.1400 40-54 % Low HCT 36.2 LAB L100.1500 80-94 fL Normal MCV 89.2 LAB L100.1600 27.0-32.0 pg Normal MCH 28.6 LAB L100.1700 32-36 g/gl Normal MCHC 32.0 LAB L100.1810 11.6-14.6 % High RDW CV 14.9 LAB L100.1820 35.1-43.9 fl High RDW SD 48.8 LAB L100.1900 150-450 K/mm3 Normal PLT 280 LAB L100.2000 6.2-12.0 fl Normal MPV 10.5 LAB L100.2100 47-70 % High NEUT% 73.7 LAB L100.2200 19-41 % Low LY% 14.6 LAB L100.2300 0-10 % Normal MONO% 9.0 LAB L100.2400 0-5 % Normal EO% 2.3 LAB L100.2500 0-1 % Normal BASO% 0.2 LAB L100.2550 0.0-0.9 % Normal IM GRAN % 0.200 Result Comment: IG% - Immature Granulocytes (promyelocytes, myelocytes and metamyelocytes) > 1% indicates that a LEFT SHIFT is Present. LAB L100.2620 2.0-7.7 X10 3/uL Normal Absolute Neut 7.0 LAB L100.2720 0.83-4.51 X10 3/ul Normal Absolute Lymph 1.39 Performed By: #### L100.0100 #### [facility] [address] [place], [place], [address] BASIC METABOLIC Collected: 05/31/2017 Status: F Source: [place] PROFILE (BMP) 9:08 AM [facility] TYPE CODE TESTS RESULT OUT OF RANGE REFERENCE UNITS LAB L501.0100 70-110 mg/dL Normal GLU 110 Result Comment: Fasting Glucose result from 110 to <126 mg/dL suggests IMPAIRED HOMEOSTASIS per A.D.A. criteria. LAB L501.1000 7-18 mg/dL High BUN 38 LAB L501.1100 0.70-1.30 mg/dL High CREAT,SERUM 2.98 Result Comment: The validity of the calculated GFR AND GFRAA in patients over 70 years has not been determined. Clinical correlation is essential. LAB L501.1110 >60 mL/min Low EST GFR 22 Result Comment: Non- GFR Calc LAB L501.1115 >60 mL/min Low EST GFR - AA 26 Result Comment: GFR Calc LAB L501.1300 10-20 RATIO Normal BUN/CRE 12.8 LAB L501.2200 8.5-10.1 mg/dL Low CA 8.1 LAB L501.5300 136-145 mmol/L NA Normal 143 LAB L501.5600 3.5-5.1 mmol/L K Normal 3.9 LAB L501.5900 98-107 mmol/L High CL 108 LAB L501.6100 21.0-32.0 mmol/L Normal CO2 24.0 LAB L501.6200 5-15 Normal GAP 11 Performed By: #### L500.2500 #### [facility] [address] [place], [address] BNP,B-TYPE NATRIURETIC Collected: 05/31/2017 Status: F Source: [place] PEPTIDE 9:08 AM [facility] TYPE CODE TESTS RESULT OUT OF RANGE REFERENCE UNITS LAB L503.6620 0-100 pg/mL High B-TYPE 301.4 SERINA PEP Performed By: #### L503.6620 #### [facility] [address] [place], [address] EMERGENCY DEPARTMENT Observed: 05/27/2017 Status: F Source: [place] SUMMARY 7:11 AM [facility] Medical Records Department [address] [place] [address] Emergency Department Summary 05/27/17 0121 MR#: [id number] Acct: [id number] Name: ARIANNA GUILLERMO Rep #: [id number] : 1940 76 From: Uli Laguerre DO PCP: Nicolas HOWE,Justice García Status: DEP ER - ER Visit Summary Date of Service: 05/27/17 Chief Complaint: [] Edema of the left elbow History of Present Illness: The patient is a 76 M [] planing of seepage/swelling of the left elbow without obvious injury. Patient has a significant history of congestive heart failure and renal failure. His son at the bedside reports he had a left upper extremity fistula placed May 11 to initiate dialysis. He has not yet had his first dialysis. Patient denies pain with range of motion of the elbow. Denies skin breakdown or injury. Denies increase in physical activity. Does report just a small area of clear serous drainage. Denies fevers. No other complaints at this time. History is limited by the patient's dementia. Son reports that the patient is not compliant taking his Lasix. Physical Examination: [] Elderly morbidly obese male in no acute distress. Afebrile, blood pressure elevated at 205/113. Remainder of vitals are within normal limits. Examination of the elbow shows clear serous drainage from a small area at the distal elbow. No signs of erythema, infection, cellulitis. There is mild swelling in comparison to the opposite elbow. There is no pain with range of motion testing. Lower extremity exam shows significant 4+ pitting edema symmetric. Test Results: [] CBC normal. Electrolytes normal with exception of a BUN/creatinine of 33 and 3.02, respectively. This is consistent with the patient's history of end-stage renal disease. ESR: 31. 3 view left elbow x-ray negative. Emergency Department Course and Treatment: [] In light of the patient's negative lab workup and negative x-rays and the fact that the patient is already on a low-dose antibiotic (Keflex), do not feel any further intervention is warranted. I inserted the nurse to provide a clean sterile dressing and I encouraged the patient to take his Lasix as prescribed. I encourage PCP follow-up within 3 days. Return if symptoms worsen or fever or redness develops. Treatment Plan: [] Follow-up with PCP. Disposition: [] Discharge, stable. Impression: [] Left elbow serous drainage History of end-stage renal disease History of congestive heart failure This note was generated with IZE[employer] dictation software. It may contain incorrect words, spelling, and punctuation that were not noted in review of the chart prior to signing ED Disposition - Plan for ED Patient: Chief Complaint: Edema Referrals: Justice Britt Chi, MD [Primary Care Provider] - What to do if you have Problems For any increased pain, shortness of breath, bleeding, nausea or vomiting, chest pain, or any unexpected problems, contact your Primary Care Provider. Call [facility] ([phone]) or report to the closest Emergency Room. Call 911 if necessary. 05/27/17 0711 <Electronically signed by Uli Laguerre DO> Date Uli Laguerre DO Cosigner Signature (If Indicated): Date CC: Justice Britt MD DISCHARGE INSTRUCTION Observed: 05/27/2017 Status: F Source: [place] 2:38 AM [facility] Medical Records Department [address] [place] [address] Discharge Instruction 05/27/17 0236 MR#: [id number] Acct: [id number] Name: ARIANNA GUILLERMO Rep #: [id number] : 1940 76 From: Uli Laguerre DO PCP: Justice Britt MD, Chi Status: REG ER ED Disposition - Plan for ED Patient: Disposition: Home or Assisted Living Chief Complaint: Edema Diagnosis: Chronic renal failure, stage 3 (moderate) Instructions: ED CHF General, Wound Care Referrals: Justice Britt Chi, MD [Primary Care Provider] - Additional Instructions: See your PCP within 3 days. What to do if you have Problems For any increased pain, shortness of breath, bleeding, nausea or vomiting, chest pain, or any unexpected problems, contact your Primary Care Provider. Call [facility] ([phone]) or report to the closest Emergency Room. Call 911 if necessary. 05/27/17 0238 <Electronically signed by Uli Laguerre DO> Date Uli Laguerre DO Cosignjorje Signature (If Indicated): Date CC: Justice Britt MD ELBOW MIN 3 VIEWS Observed: 05/27/2017 Status: F Source: [place] 1:21 AM [facility] Imaging Services [address] [facility] [place] [address] Elbow min 3 Views MR#: [id number] Acct: [id number] Name: ARIANNA GUILLERMO Rep #: [id number] : 1940 M 76 From: Gerber Dietz MD PCP: Justice Britt MD, Chi Status: REG ER Study: Elbow min 3 Views Date of Exam: 05/27/17 Exam# [id number] Ordering Dr: Uli Laguerre DO STUDY: X-RAY - LEFT ELBOW REASON FOR EXAM: Male, 76 years old. Fall TECHNIQUE: 3 view(s) of the elbow. COMPARISON: None. FINDINGS: Radial head osteophyte. Ulnotrochlear osteoarthritis. Soft tissue swelling. Surgical clips. Calcific tendinitis involving the common flexor tendon. RAD/Elbow min 3 Views IMPRESSION: No acute osseous injury is evident. Electronically Signed: Gerber Dietz MD at 2:03 EST Tel , Service support , CC: Uli Laguerre DO; Justice Britt MD Veterinary Epidemiologist: Signed CBC W/DIFF, AUTOMATED Collected: 05/27/2017 Status: F Source: [place] 12:40 AM [facility] TYPE CODE TESTS RESULT OUT OF RANGE REFERENCE UNITS LAB L100.1000 4.4-11.0 K/mm3 Normal WBC 7.1 LAB L100.1200 4.6-6.2 M/mm3 Low RBC 3.73 LAB L100.1300 13.0-16.5 g/dl Low HGB 10.7 LAB L100.1400 40-54 % Low HCT 33.1 LAB L100.1500 80-94 fL Normal MCV 88.7 LAB L100.1600 27.0-32.0 pg Normal MCH 28.7 LAB L100.1700 32-36 g/gl Normal MCHC 32.3 LAB L100.1810 11.6-14.6 % High RDW CV 15.2 LAB L100.1820 35.1-43.9 fl High RDW SD 49.3 LAB L100.1900 150-450 K/mm3 Normal PLT 241 LAB L100.2000 6.2-12.0 fl Normal MPV 10.4 LAB L100.2100 47-70 % High NEUT% 72.4 LAB L100.2200 19-41 % Low LY% 15.4 LAB L100.2300 0-10 % Normal MONO% 9.7 LAB L100.2400 0-5 % Normal EO% 2.1 LAB L100.2500 0-1 % Normal BASO% 0.3 LAB L100.2550 0.0-0.9 % Normal IM GRAN % 0.100 Result Comment: IG% - Immature Granulocytes (promyelocytes, myelocytes and metamyelocytes) > 1% indicates that a LEFT SHIFT is Present. LAB L100.2620 2.0-7.7 X10 3/uL Normal Absolute Neut 5.2 LAB L100.2720 0.83-4.51 X10 3/ul Normal Absolute Lymph 1.10 Performed By: #### L100.0100, L101.9900 #### [facility] [address] [facility] [id number] ERYTHROCYTE SED RATE Collected: 05/27/2017 Status: F Source: [place] 12:40 AM [facility] TYPE CODE TESTS RESULT OUT OF RANGE REFERENCE UNITS LAB L102.0000 0-20 mm/hr High SED RATE 31 Performed By: #### L100.0100, L101.9900 #### [facility] [address] [place], [address] BASIC METABOLIC Collected: 05/27/2017 Status: F Source: [place] PROFILE (BMP) 12:40 AM [facility] TYPE CODE TESTS RESULT OUT OF RANGE REFERENCE UNITS LAB L501.0100 70-110 mg/dL High GLU 126 Result Comment: Fasting Glucose result greater than or equal to 126 mg/dL suggests DIABETES MELLITUS per A.D.A. criteria. LAB L501.1000 7-18 mg/dL High BUN 33 LAB L501.1100 0.70-1.30 mg/dL High CREAT,SERUM 3.02 Result Comment: The validity of the calculated GFR AND GFRAA in patients over 70 years has not been determined. Clinical correlation is essential. LAB L501.1110 >60 mL/min Low EST GFR 21 Result Comment: Non- GFR Calc LAB L501.1115 >60 mL/min Low EST GFR - AA 26 Result Comment: GFR Calc LAB L501.1255 ml/min Normal Estimated CRCL 18.19 LAB L501.1300 10-20 RATIO Normal BUN/CRE 10.9 LAB L501.2200 8.5-10 mg/dL Low .1 CA 8.0 LAB L501.5300 136-14 mmol/L Normal 5 NA 144 LAB L501.5600 3.5-5. mmol/L Normal 1 K 3.8 LAB L501.5900 98-107 mmol/L High CL 111 LAB L501.6100 21.0-3 mmol/L Normal 2.0 CO2 23.0 LAB L501.6200 5-15 Normal GAP 10 Performed By: #### L500.2500 #### [facility] [address] [facility] [place], [address] ABDOMEN LIMITED Observed: 05/24/2017 Status: F Source: [place] 11:24 AM [facility] Imaging Services [address] [place] [address] Abdomen Limited MR#: [id number] Acct: [id number] Name: ARIANNA GUILLERMO Rep #: [id number] : 1940 M 76 From: Jo Ann Wolfe MD PCP: Justice Britt MD, Chi Status: REG CLI Study: Abdomen Limited Date of Exam: 05/24/17 Exam# [id number] Ordering Dr: uJstice Britt MD STUDY: SUPERFICIAL ULTRASOUND - RIGHT ABDOMINAL WALL REASON FOR EXAM: Male, 76 years old. Pain, bruising TECHNIQUE: A superficial ultrasound was performed with real- time and static gentile-scale imaging. COMPARISON: None. FINDINGS: There are no cystic or solid masses seen in the area of concern. There are no fluid collections. US/Abdomen Limited IMPRESSION: Negative study. Electronically Signed: Jo Ann Wolfe MD at 16:06 EST Tel Direct: [phone], Service support , CC: Justice Britt MD Veterinary Epidemiologist: Signed BASIC METABOLIC Collected: 05/22/2017 Status: F Source: [place] PROFILE (BMP) 4:31 PM [facility] TYPE CODE TESTS RESULT OUT OF RANGE REFERENCE UNITS LAB L501.0100 70-110 mg/dL Normal GLU 97 LAB L501.1000 7-18 mg/dL High BUN 34 LAB L501.1100 0.70-1.30 mg/dL High 2.80 CREAT,SERUM Result Comment: The validity of the calculated GFR AND GFRAA in patients over 70 years has not been determined. Clinical correlation is essential. LAB L501.1110 >60 mL/min Low EST GFR 23 Result Comment: Non- GFR Calc LAB L501.1115 >60 mL/min Low EST GFR - AA 28 Result Comment: GFR Calc LAB L501.1300 10-20 RATIO Normal BUN/CRE 12.1 LAB L501.2200 8.5-10.1 mg/dL Low CA 8.3 LAB L501.5300 136-145 mmol/L NA Normal 145 LAB L501.5600 3.5-5.1 mmol/L K Normal 4.8 LAB L501.5900 98-107 mmol/L High CL 112 LAB L501.6100 21.0-32.0 mmol/L Normal CO2 25.0 LAB L501.6200 5-15 Normal GAP 8 Performed By: #### L500.2500 #### [facility] [address] 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 Is patient in pain?: No Allergies JAMEEL Inhibitors Allergy (Verified 05/22/17 13:52) Unknown doxazosin mesylate [From Cardura] Allergy (Verified 05/22/17 13:52) Hives fosinopril sodium [From Monopril] Allergy (Verified 05/22/17 13:52) Hives lisinopril Allergy (Verified 05/22/17 13:52) Hives morphine Allergy (Verified 05/22/17 13:52) Other Medications Aspirin [Aspirin, Baby] 81 mg PO DAILY@0800 04/01/14 [History Confirmed 05/22/17] Finasteride [Proscar] 5 mg PO DAILY 04/01/14 [History Confirmed 05/22/17] Nitroglycerin [Nitrostat] 0.4 mg SUBLINGUAL Q5M PRN 02/01/15 [History Confirmed 05/22/17] Clopidogrel Bisulfate [Plavix] 75 mg PO DAILY 02/27/15 [History Confirmed 05/22/17] Pravastatin [Pravachol] 20 mg PO QHS 02/27/15 [History Confirmed 05/22/17] Amlodipine [Norvasc] 5 mg PO DAILY 07/17/16 [History Confirmed 05/22/17] Ranitidine HCl 150 mg PO DAILY 07/17/16 [History Confirmed 05/22/17] plecanatide 3 mg tablet 3 mg PO QDAY 04/16/17 [History Confirmed 05/22/17] levothyroxine 25 mcg tablet 25 mcg PO DAILY 04/27/17 [History Confirmed 05/22/17] linaclotide 72 mcg capsule 72 mcg PO QAM 04/27/17 [History Confirmed 05/22/17] Fluticasone 0.05% [Flonase Nasal [place]] 1 spray NASAL DAILY PRN 05/07/17 [History Confirmed 05/22/17] atenolol 50 mg tablet 50 mg PO BID tab 05/09/17 [History Confirmed 05/22/17] eluxadoline 75 mg tablet 150 mg PO ONCE tab 05/09/17 [History Confirmed 05/22/17] escitalopram 10 mg tablet 10 mg PO QDAY 05/09/17 [History Confirmed 05/22/17] furosemide 20 mg tablet 40 mg PO QDAY tab 05/09/17 [History Confirmed 05/22/17] hydroxyzine HCl 50 mg tablet 50 mg PO Q6H PRN tab 05/09/17 [History Confirmed 05/22/17] potassium chloride ER 20 mEq tablet,extended release 20 meq PO TID tab 05/09/17 [History Confirmed 05/22/17] terazosin 1 mg capsule 1 mg PO QDAY cap 05/09/17 [History Confirmed 05/22/17] Hydrocodone Bitart/Apap 5-325 [Aurora 5MG-325MG] 1 tab PO Q6H PRN PRN #6 tab 05/10/17 [Rx Confirmed 05/22/17] PFS Medical History Atherosclerosis of 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 (Acute) Hypertension (Chronic) Status post right partial knee replacement (Acute) Arthritis (Chronic) Benign essential hypertension (Chronic) Benign prostatic hypertrophy without lower urinary tract symptoms (Chronic) Chronic kidney disease (Chronic) Coronary artery disease (Chronic) Gastroesophageal reflux disease (Chronic) Hyperlipidemia (Chronic) Normochromic normocytic anemia (Chronic) Chronic renal failure, stage 3 (moderate) (Chronic) Chest pain (Acute) Hypokalemia (Acute) Acute renal insufficiency (Acute) Surgical History 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 Dr. Brown performed a transposition left forearm cephalic vein to radial artery arteriovenous fistula creation on 05/10/17. Patient tolerated the procedure well. Patient is not currently on dialysis. 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 He denies incisional pain/discomfort. He notes minimal amount of swelling. He notes he has resumed his anticoagulation. Patient returns today for concerns with swelling of the left forearm. Patient noted he fell at home on his left arm. He noted increased swelling after the fall. He denies increased pain or discomfort. He denies numbness/tingling in the hand or fingers. Exam Extrem Other: Left forearm AV fistula- incision nicely healing. No erythema or infection. Moderate amount of ecchymosis and increased swelling noted into the elbow. Good pulse, bruit and thrill Assessment AND Plan Problems 1. Chronic renal failure, stage 3 (moderate) N18.3 Plan - Continue to elevate and ice the forearm - Continue hand exercises - Forearm appears slightly more swollen however the hand and wrist area appear to look the same has post-surgical appointment last week - Follow-up in 2 weeks Coding Level of Care Code Global Post Op Diagnoses Chronic renal failure, stage 3 (moderate) N18.3 05/22/17 1604 <Electronically signed by Jaylin New PA-C> Date Jaylin New PA-C Cosigner Signature: Date (if applicable) CC: Luann Lang DO SURGERY VISIT REPORT Observed: 05/17/2017 Status: F Source: [place] 11:35 AM [facility] [address] [place] [address] OFFICE VISIT Date of Service: 05/17/17 MR#: [id number] Acct: [id number] Name: ARIANNA GUILLERMO Rep #: [id number] : 1940 Provider: Jaylin New PA-C Age/Sex: 76/M Location: [facility] Status: Signed Intake Intake Visit Reasons: F/U FISTULA PLACEMENT 05/10/2017 Treating Machine Operator Required: No Is patient in pain?: No Allergies JAMEEL Inhibitors Allergy (Verified 05/17/17 10:05) Unknown doxazosin mesylate [From Cardura] Allergy (Verified 05/17/17 10:05) Hives fosinopril sodium [From Monopril] Allergy (Verified 05/17/17 10:05) Hives lisinopril Allergy (Verified 05/17/17 10:05) Hives morphine Allergy (Verified 05/17/17 10:05) Other Medications Aspirin [Aspirin, Baby] 81 mg PO DAILY@0800 04/01/14 [History Confirmed 05/17/17] Finasteride [Proscar] 5 mg PO DAILY 04/01/14 [History Confirmed 05/17/17] Nitroglycerin [Nitrostat] 0.4 mg SUBLINGUAL Q5M PRN 02/01/15 [History Confirmed 05/17/17] Clopidogrel Bisulfate [Plavix] 75 mg PO DAILY 02/27/15 [History Confirmed 05/17/17] Pravastatin [Pravachol] 20 mg PO QHS 02/27/15 [History Confirmed 05/17/17] Amlodipine [Norvasc] 5 mg PO DAILY 07/17/16 [History Confirmed 05/17/17] Ranitidine HCl 150 mg PO DAILY 07/17/16 [History Confirmed 05/17/17] plecanatide 3 mg tablet 3 mg PO QDAY 04/16/17 [History Confirmed 05/17/17] levothyroxine 25 mcg tablet 25 mcg PO DAILY 04/27/17 [History Confirmed 05/17/17] linaclotide 72 mcg capsule 72 mcg PO QAM 04/27/17 [History Confirmed 05/17/17] Fluticasone 0.05% [Flonase Nasal [place]] 1 spray NASAL DAILY PRN 05/07/17 [History Confirmed 05/17/17] atenolol 50 mg tablet 50 mg PO BID tab 05/09/17 [History Confirmed 05/17/17] eluxadoline 75 mg tablet 150 mg PO ONCE tab 05/09/17 [History Confirmed 05/17/17] escitalopram 10 mg tablet 10 mg PO QDAY 05/09/17 [History Confirmed 05/17/17] furosemide 20 mg tablet 40 mg PO QDAY tab 05/09/17 [History Confirmed 05/17/17] hydroxyzine HCl 50 mg tablet 50 mg PO Q6H PRN tab 05/09/17 [History Confirmed 05/17/17] potassium chloride ER 20 mEq tablet,extended release 20 meq PO TID tab 05/09/17 [History Confirmed 05/17/17] terazosin 1 mg capsule 1 mg PO QDAY cap 05/09/17 [History Confirmed 05/17/17] Hydrocodone Bitart/Apap 5-325 [Aurora 5MG-325MG] 1 tab PO Q6H PRN PRN #6 tab 05/10/17 [Rx Confirmed 05/17/17] PFSH Medical History Atherosclerosis of 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 (Acute) Hypertension (Chronic) Status post right partial knee replacement (Acute) Arthritis (Chronic) Benign essential hypertension (Chronic) Benign prostatic hypertrophy without lower urinary tract symptoms (Chronic) Chronic kidney disease (Chronic) Coronary artery disease (Chronic) Gastroesophageal reflux disease (Chronic) Hyperlipidemia (Chronic) Normochromic normocytic anemia (Chronic) Chronic renal failure, stage 3 (moderate) (Chronic) Chest pain (Acute) Hypokalemia (Acute) Acute renal insufficiency (Acute) Surgical History 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 Dr. Brown performed a transposition left forearm cephalic vein to radial artery arteriovenous fistula creation on 05/10/17. Patient tolerated the procedure well. Patient is not currently on dialysis. 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 He denies incisional pain/discomfort. He notes minimal amount of swelling. He notes he has resumed his anticoagulation. Exam Extrem Other: Left forearm AV fistula- good pulse, bruit and thrill. Moderate amount of swelling noted. Incisions c/d/i. No infection noted. Moderate amount of ecchymosis. Assessment AND Plan Problems 1. 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 05/17/17 1135 <Electronically signed by Jaylin New PA-C> Date Jaylin New PA-C Cosigner Signature: Date (if applicable) CC: Luann Lang DO 12 LEAD ELECTROCARDIOGRAM Observed: 05/14/2017 Status: F Source: [place] 2:16 PM [facility] Cardiovascular Services [address] [place] [id number] Lead EKG 05/10/17 1004 MR#: [id number] Acct: [id number] Name: ARIANNA GUILLERMO Rep #: [id number] : 1940 76 From: Tolu Dudley MD Attending Dr: Liam Brown MD Status: DEP [facility] [place] Ordering Dr: Liam Brown MD Date: 05/10/17 Location: [facility] [place] Sex: M C Admitted: Test Reason : PRE OP Blood Pressure : / mmHG Vent. Rate : 059 BPM Atrial Rate : 059 BPM P-R Int : 158 ms QRS Dur : 114 ms QT Int : 464 ms P-R-T Axes : 035 -30 -12 degrees QTc Int : 459 ms Sinus bradycardia Left axis deviation Abnormal ECG No previous ECGs available Confirmed by TOLU DUDLEY MD ([id number]), mapping editor JAVAN GASPAR ([id number]) on 05/14/2017 2:15:55 PM Referred By: Liam Brown Confirmed By:TOLU DUDLEY MD 05/14/17 6369 Date Tolu Dudley MD CC: Liam Brown MD; Justice Britt MD Signed DISCHARGE INSTRUCTION Observed: 05/12/2017 Status: F Source: [place] 1:14 PM [facility] Medical Records Department [address] [place] [address] Instructions for Home/Discharge Instructions 05/10/17 1215 MR#: [id number] Acct: [id number] Name: ARIANNA GUILLERMO Rep #: [id number] : 1940 76 From: Liam Brown MD PCP: Nicolas HOWE,Justice García Status: DEP [facility] [place] Discharge Diet: Renal Diet Discharge Activity: May Not Drive - for 2-3 days or while taking narcotic pain medications., May Shower, May Take a Tub Bath - in 5 days. Lifting Restrictions: 5 pounds Keep extremity elevated above heart level: - - Keep arm elevated above the heart level for 3 days. Additional Activity Instructions:: Exercise hand vigorously with a stress ball. Call your doctor if your incision/area has: Continuous Slow Oozing, Sudden Increased Bleeding - apply pressure and call your doctor., Increased Pain/ Swelling, Increased Redness, Foul Smelling Discharge Call your doctor if you observe: Fever of 101 or Higher Suture Line Care: Avoid Pulling/Pushing, Avoid Pinching/Bending Cleanse incision/area with: Keep Dressing Clean AND Dry Additional Dressing/Incision Instructions:: Elevate your arm to limit swelling. Please keep the area clean and dry. You may remove the elastic dressing in 4 days please Allergies/Adverse Reactions: Allergies JAMEEL Inhibitors Allergy (Verified 05/07/17 11:16) Unknown doxazosin mesylate [From Cardura] Allergy (Verified 05/07/17 11:16) Hives fosinopril sodium [From Monopril] Allergy (Verified 05/07/17 11:16) Hives lisinopril Allergy (Verified 05/07/17 11:16) Hives morphine Allergy (Verified 05/07/17 11:16) Other agitated Medications to take at Discharge Aspirin [Aspirin, Baby] 81 mg PO DAILY@0800 04/01/14 Finasteride [Proscar] 5 mg PO DAILY 04/01/14 Nitroglycerin [Nitrostat] 0.4 mg SUBLINGUAL Q5M PRN 02/01/15 Clopidogrel Bisulfate [Plavix] 75 mg PO DAILY 02/27/15 Pravastatin [Pravachol] 20 mg PO QHS 02/27/15 Amlodipine [Norvasc] 5 mg PO DAILY 07/17/16 Ranitidine HCl 150 mg PO DAILY 07/17/16 plecanatide 3 mg tablet 3 mg PO QDAY 04/16/17 levothyroxine 25 mcg tablet 25 mcg PO DAILY 04/27/17 linaclotide 72 mcg capsule 72 mcg PO QAM 04/27/17 Fluticasone 0.05% [Flonase Nasal [place]] 1 spray NASAL DAILY PRN 05/07/17 atenolol 50 mg tablet 50 mg PO BID tab 05/09/17 eluxadoline 75 mg tablet 150 mg PO ONCE tab 05/09/17 escitalopram 10 mg tablet 10 mg PO QDAY 05/09/17 furosemide 20 mg tablet 40 mg PO QDAY tab 05/09/17 hydroxyzine HCl 50 mg tablet 50 mg PO Q6H PRN tab 05/09/17 potassium chloride ER 20 mEq tablet,extended release 20 meq PO TID tab 05/09/17 terazosin 1 mg capsule 1 mg PO QDAY cap 05/09/17 Hydrocodone Bitart/Apap 5-325 [Aurora 5MG-325MG] 1 tablet PO Q6H PRN PRN #6 tablet 05/10/17 The following prescriptions were given: Hydrocodone Bitart/Apap 5-325 [Aurora 5MG-325MG] 1 tablet PO Q6H PRN PRN #6 tablet PRN Reason: Pain Primary Care Physician: Justice Britt Chi, MD [Primary Care Provider] - Please Follow Up With: Liam Brown MD - [phone] When: Call to make an appointment for suture removal and follow up in 1 week. 05/12/17 1314 <Electronically signed by Liam Brown MD> Date Liam Brown MD CC: Justice Britt MD OPERATIVE REPORT Observed: 05/12/2017 Status: F Source: [place] 1:14 PM [facility] Medical Records Department [address] [place] [address] Operative Report 05/10/17 1357 MR#: [id number] Acct: [id number] Name: ARIANNA GUILLERMO Rep #: [id number] : 1940 76 From: Liam Brown MD PCP: Justice Britt MD, Chi Status: DEP [facility] [place] Y Location: [facility] [place] Problem List (1) Chronic kidney disease Status: Chronic Qualifiers: Qualified Code(s): N18.4 - Chronic kidney disease, stage 4 (severe) Report of Operation Date of Procedure: 05/10/17 Pre-Operative Diagnosis: Stage IV chronic renal insufficiency Post-Operative Diagnosis: Same Surgery/Procedure Performed:: Transposition left forearm cephalic vein to radial artery arteriovenous fistula creation Description of Surgical Findings:: Timeout and informed consent was obtained. 76-year-old gent was taken to the operating room. He was placed supine on the table. Ancef 2 g given intravenous preoperatively. The left upper extremity was sterilely prepped and draped. 1% lidocaine mixed 50-50 with 0.5% Marcaine was used as local anesthetic. A total 24 cc was used. Ultrasound was used to map the course of the cephalic vein of the forearm. I injected local. Made a longitudinal incision. There were multiple branches of the cephalic vein. Average size was moderate. I dissected down to the dorsal aspect of the wrist at which point it became diminutive. I dissected up to the space. Where needed side branches were secured with interrupted 4- 0 Vicryl and hemoclips. The vein was then fully mobilized. The anastomosis was to be formed the vein branch point to allow for better spatulation. I irrigated the vein appear to be of adequate diameter. I then measured the length of the vein in an appropriate position on the volar radial aspect of the distal forearm made a longitudinal incision sharp and blunt dissection was used to identify the radial artery. I then used a tunneler to make a tunnel from the antecubital space down to the distal forearm. I secured the vein at the wrist with hemoclips release the vein then as noted I spatulated it I placed it through the tunnel appear to have a good positional lie. At this point patient received 10,000 units of heparin. I placed peripheral vascular clamps of the radial artery mid 11 blade created an arteriotomy extended that with Vargas scissors. A end-to-side anastomosis created with a running 7-0 Prolene. Prior to completion there appear to be good antegrade and retrograde flow. The anastomosis was completed and immediately there was good pulse and thrill within the fistula. Seem to continue to have a good positional lie. Hemostasis was intact. The wounds were now closed with interrupted 3-0 Vicryl subdermal stitches and then a running septic or 4-0 Monocryl. Steri- Strips Telfa 4 x 4 soft roll Jameel wrap applied. Sponge instrument and needle counts were reported to the surgeon to be correct. Blood loss was actually quite minimal at 100 cc. He tolerated procedure well the hand was viable to completion was taken to the recovery room. No apparent complications. No specimens. No drains. Liam Brown M.D., F.A.C.S. Type of Anesthesia:: Local MAC Anesthesiologist: Alli Vazquez 05/12/17 1314 <Electronically signed by Liam Brown MD> Date Liam Brown MD CC: Liam Brown MD; Justice Britt MD Signed CARDIOLOGY VISIT Observed: 05/11/2017 Status: F Source: [place] REPORT 12:23 PM [facility] [address] [place] [address] OFFICE VISIT Date of Service: 05/09/17 MR#: [id number] Acct: [id number] Name: ARIANNA GUILLERMO Rep #: [id number] : 1940 Provider: ARUN Soto Age/Sex: 76/M Location: [facility] Status: Signed HPI 4 M FU: Chief Complaint: Routine follow-up Details: ARIANNA GUILLERMO, is a 76 M who presents to the office today for a cardiovascular outpatient follow-up. Patient has history of coronary artery disease status post stenting to LAD and POBA to diagonal 1 in January 2015, and drug-eluting stent to RCA in February 2015, sinus bradycardia, hyperlipidemia, and shortness of breath. Since last office visit patient has been referred to pulmonology for further evaluation of his shortness of breath. Pt. denies chest, arm, jaw, or neck discomfort. His exercise tolerance is stable. Pt. denies symptoms of palpitations, near syncope, or syncopal episodes. Pt. denies claudication issues. Pt. denies orthopnea, PND, fever, chills, blood in urine, blood in stool, myalgia, or unexplainable fatigue. Pt. states some lightheadedness and dizziness at random times. He continues to have shortness of breath. He states if he goes slowly or leans on something while walking it is improved. However, when going long distances, such as going to the barn, he will use his golf cart. He continues to have lower extremity edema, this has not worsened. Intake Vital Signs05/09/17 Height 5 ft 7 in 05/09/17 Weight: 306 lb 05/09/17 Body Mass Index (BMI) 47.9 05/09/17 Blood Pressure 130/70 Intake Visit Reasons: 4 M FU Allergies JAMEEL Inhibitors Allergy (Verified 05/07/17 11:16) Unknown doxazosin mesylate [From Cardura] Allergy (Verified 05/07/17 11:16) Hives fosinopril sodium [From Monopril] Allergy (Verified 05/07/17 11:16) Hives lisinopril Allergy (Verified 05/07/17 11:16) Hives morphine Allergy (Verified 05/07/17 11:16) Other Medications Aspirin [Aspirin, Baby] 81 mg PO DAILY@0800 04/01/14 [History Confirmed 05/09/17] Finasteride [Proscar] 5 mg PO DAILY 04/01/14 [History Confirmed 05/09/17] Nitroglycerin [Nitrostat] 0.4 mg SUBLINGUAL Q5M PRN 02/01/15 [History Confirmed 05/09/17] Clopidogrel Bisulfate [Plavix] 75 mg PO DAILY 02/27/15 [History Confirmed 05/09/17] Pravastatin [Pravachol] 20 mg PO QHS 02/27/15 [History Confirmed 05/09/17] Amlodipine [Norvasc] 5 mg PO DAILY 07/17/16 [History Confirmed 05/09/17] Ranitidine HCl 150 mg PO DAILY 07/17/16 [History Confirmed 05/09/17] plecanatide 3 mg tablet 3 mg PO QDAY 04/16/17 [History Confirmed 05/09/17] levothyroxine 25 mcg tablet 25 mcg PO DAILY 04/27/17 [History Confirmed 05/09/17] linaclotide 72 mcg capsule 72 mcg PO QAM 04/27/17 [History Confirmed 05/09/17] Fluticasone 0.05% [Flonase Nasal [place]] 1 spray NASAL DAILY PRN 05/07/17 [History Confirmed 05/09/17] atenolol 50 mg tablet 50 mg PO BID tab 05/09/17 [History Confirmed 05/09/17] eluxadoline 75 mg tablet 150 mg PO ONCE tab 05/09/17 [History Confirmed 05/09/17] escitalopram 10 mg tablet 10 mg PO QDAY 05/09/17 [History Confirmed 05/09/17] furosemide 20 mg tablet 40 mg PO QDAY tab 05/09/17 [History Confirmed 05/09/17] hydroxyzine HCl 50 mg tablet 50 mg PO Q6H PRN tab 05/09/17 [History Confirmed 05/09/17] potassium chloride ER 20 mEq tablet,extended release 20 meq PO TID tab 05/09/17 [History Confirmed 05/09/17] terazosin 1 mg capsule 1 mg PO QDAY cap 05/09/17 [History Confirmed 05/09/17] Ejection fraction %: 60 to 64 PFSH Medical History Arthritis (Chronic) Benign essential hypertension (Chronic) Benign prostatic hypertrophy without lower urinary tract symptoms (Chronic) Chronic kidney disease (Chronic) Coronary artery disease (Chronic) Gastroesophageal reflux disease (Chronic) Hyperlipidemia (Chronic) Normochromic normocytic anemia (Chronic) Chronic renal failure, stage 3 (moderate) (Chronic) Chest pain (Acute) Hypokalemia (Acute) Acute renal insufficiency (Acute) Atherosclerosis of 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 (Acute) Status post right partial knee replacement (Acute) Hypertension (Chronic) Surgical History History of angioplasty (Chronic) History of bilateral hip arthroplasty (Acute) Family History Father Hypertension Cancer Brother CAD (coronary artery disease) Mother Hypertension Sister Hypertension Son Atrial fibrillation Social History Smoking Status: Former smoker alcohol intake: never substance use type: does not use ROS Const Const: Negative for fatigue, weakness, body ache, fever(s) or chills ENT ENT: Positive for dizziness Cardio Chest Pain: No Palpitations: Positive for No Edema: None Muscle aches with walking: None Resp Respiratory: Positive for SOB with activity; negative for SOB at rest, SOB orthopnea\SOB lying down or paroxysmal nocturnal dyspnea GI GI: Negative nausea, black,tarry stools, bright, red blood in stools or vomiting blood/hematemesis : Negative for hematuria or frequent nighttime urination/ nocturia Musc Musc: Negative for muscle aches/ myalgia Neuro Neuro: Negative for weakness, Positive for dizziness, Positive for lightheadedness, Negative for near syncope, Negative for syncope, Negative for orthostatic symptoms Endo Endo: Negative for fatigue Cardiology Exam Const Appearance: cooperative, healthy appearing, comfortable and no acute distress Orientation: alert, awake and oriented x3 Head Head: normal to inspection Mouth: oral mucosae normal Neck Neck: no JVD and normal visual inspection Carotids: normal carotid upstroke Chest Chest inspection: normal inspection of the chest and normal respiratory effort Auscultation: Bilateral: Clear to Auscultation Cardio Rate: regular rate Rhythm: regular rhythm Heart sounds: S1 normal and S2 normal; negative rub or gallop GI GI: normal to inspection Neuro General: alert, awake, oriented x3 and CN's II-XI intact bilaterally Skin Skin: no rashes or lesions noted Extremities Pulses: Normal: Right Posterior Tibial Pulse, Left Posterior Tibial Pulse, Right Radial Pulse, Left Radial Pulse Lower Extremity Edema: +1: Bilateral (compression stockiings present) Psych Psychological: normal affect Assessment AND Plan 1. Atherosclerosis of 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 I25.10 Plan - ANDI Cid Patient's heart catheterization from June 2016 showed a patent LAD stent and patent RCA stent. When compared to heart catheterization January 2015 RPL vessel appears without significant change. Medical management was recommended. Patient denies any chest pain, arm pain, jaw pain, neck pain, or fatigue suggestive of angina at this time. We will continue to monitor this. We will not make any medication regimen changes and will continue risk factor modification. 2. Shortness of breath R06.02 Plan - ANDI Cid Patient states that pulmonology's recommendation was continual use of BiPAP machine. Patient states that he will attempt to use BiPAP machine on a regular basis. Patient will also be undergoing a fistula placement for dialysis due to chronic kidney disease. Hopefully fluid management via dialysis will help improve shortness of breath. Patient's weight continues to increase. At this time, he was asked to continue healthy weight management, healthy diet, to improve his shortness of breath. 3. Sinus bradycardia R00.1 Plan - ANDI Cid Patient's heart rate is well-controlled today in office. He denies any secondary symptoms such as we will continue to monitor this. We will not make any medication regimen changes. 4. Hyperlipidemia E78.5 Plan - ANDI Cid Patient denied any current myalgia. Most recently his cholesterol medication was stopped due to lower extremity myalgia. He is currently taking pravastatin 20 mg. We will continue this medication. 5. Stage 4 chronic kidney disease N18.4 Plan - ANDI Cid Support member present states his kidney disease is stage IV. Patient will be undergoing a fistula placement for dialysis. Patient will continue to follow-up with primary supervisor porcelain department, Dr. Lang, for this. Plan Detail Additional Comments - ANDI Cid Discussed the above patient with Dr. Pastrana, he agrees with the plan of care. Thank you for allowing us to participate in the patients plan of care, if you have any questions please do not hesitate to call. This note was generated using a voice recognition system and there may be incorrect words, spelling or punctuation that were not noted when reviewing the office note prior to saving. Follow Up 9 Months (PFM) 05/10/17 0748 <Electronically signed by Cholo ESCAMILLA> Date Cholo ESCAMILLA 05/11/17 1223<Electronically signed by Norris Pastrana MD> Cosigner Signature: Date (if applicable) Norris Pastrana MD CC: Justice Britt MD SURGERY VISIT REPORT Observed: 04/27/2017 Status: F Source: [place] 4:04 PM [facility] [address] [place] [address] OFFICE VISIT Date of Service: 04/27/17 MR#: [id number] Acct: [id number] Name: ARIANNA GUILLERMO Rep #: [id number] : 1940 Provider: Liam Brown MD Age/Sex: 76/M Location: [facility] Status: Signed Intake Vital Signs04/27/17 Height 5 ft 7 in 04/27/17 Weight: 290 lb 04/27/17 Body Mass Index (BMI) 45.4 Intake Visit Reasons: poss fistula creation, vein mapping 04/20 Treating Machine Operator Required: No Is patient in pain?: No Allergies JAMEEL Inhibitors Allergy (Verified 04/27/17 14:53) Unknown doxazosin mesylate [From Cardura] Allergy (Verified 04/27/17 14:53) Hives fosinopril sodium [From Monopril] Allergy (Verified 04/27/17 14:53) Hives lisinopril Allergy (Verified 04/27/17 14:53) Hives morphine Allergy (Verified 04/27/17 14:53) Other Medications Aspirin [Aspirin, Baby] 81 mg PO DAILY@0800 04/01/14 [History Confirmed 04/27/17] Atenolol [Tenormin (beta viet)] 25 mg PO BID 04/01/14 [History Confirmed 04/27/17] Finasteride [Proscar] 5 mg PO DAILY 04/01/14 [History Confirmed 04/27/17] Garlic [Garlic Oil] 1 tab PO BID 04/01/14 [History Confirmed 04/27/17] Potassium Chloride [Klor-Con 10] 20 meq PO DAILY 04/01/14 [History Confirmed 04/27/17] Escitalopram Oxalate [Lexapro] 5 mg PO QHS 02/01/15 [History Confirmed 04/27/17] Nitroglycerin [Nitrostat] 0.4 mg SUBLINGUAL Q5M PRN 02/01/15 [History Confirmed 04/27/17] Clopidogrel Bisulfate [Plavix] 75 mg PO DAILY 02/27/15 [History Confirmed 04/27/17] Pravastatin [Pravachol] 20 mg PO QHS 02/27/15 [History Confirmed 04/27/17] Albuterol Inhaler [Ventolin Hfa (SP)] 2 puff INHALATION Q4H PRN PRN 07/17/16 [History Confirmed 04/27/17] Amlodipine [Norvasc] 5 mg PO DAILY 07/17/16 [History Confirmed 04/27/17] Calcium Carbonate [Calcium] 500 mg PO DAILY 07/17/16 [History Confirmed 04/27/17] Ranitidine HCl 150 mg PO BID 07/17/16 [History Confirmed 04/27/17] febuxostat 80 mg tablet 80 mg PO QDAY 04/16/17 [History Confirmed 04/27/17] furosemide 20 mg tablet 20 mg PO QHS 04/16/17 [History Confirmed 04/27/17] plecanatide 3 mg tablet 3 mg PO QDAY 04/16/17 [History Confirmed 04/27/17] terazosin 1 mg capsule 1 mg PO QDAY 04/16/17 [History Confirmed 04/27/17] cefdinir 300 mg capsule 300 mg PO ONCE 04/27/17 [History Confirmed 04/27/17] clobetasol 0.05 % topical cream 1 applic TOPICAL ONCE 04/27/17 [History Confirmed 04/27/17] eluxadoline 75 mg tablet 75 mg PO ONCE 04/27/17 [History Confirmed 04/27/17] famotidine 40 mg tablet 40 mg PO QHS 04/27/17 [History Confirmed 04/27/17] hydroxyzine HCl 50 mg tablet 50 mg PO ONCE 04/27/17 [History Confirmed 04/27/17] levothyroxine 25 mcg tablet PO 04/27/17 [History Confirmed 04/27/17] linaclotide 72 mcg capsule 72 mcg PO QAM 04/27/17 [History Confirmed 04/27/17] PFSH Medical History Arthritis (Chronic) Benign essential hypertension (Chronic) Benign prostatic hypertrophy without lower urinary tract symptoms (Chronic) Chronic kidney disease (Chronic) Coronary artery disease (Chronic) Gastroesophageal reflux disease (Chronic) Hyperlipidemia (Chronic) Normochromic normocytic anemia (Chronic) Chronic renal failure, stage 3 (moderate) (Chronic) Chest pain (Acute) Hypokalemia (Acute) Acute renal insufficiency (Acute) Status post right partial knee replacement (Acute) Surgical History History of angioplasty (Chronic) History of bilateral hip arthroplasty (Acute) Family History Father No problems noted. Social History Smoking Status: Former smoker alcohol intake: never substance use type: does not use HPI HPI HPI: ARIANNA GUILLERMO, is a 76 M who presents to the office today for referral for arteriovenous fistula creation for hemodialysis. The patient is age 76. He is very forgetful. He is not particularly aware of all of his past medical history. He claims that he has thin skin and has multiple superficial skin tears to the right hand and upper extremity. He is right arm dominant. He denies myocardial infarction or stroke. It is evident however that he has previous coronary stenting.. He states that he is not diabetic however laboratory and treatment suggest that he is. At the [facility] on April 20, 2017 he had bilateral upper extremity vein mapping. This demonstrated adequate bilateral upper extremity cephalic and basilic veins and adequate radial and brachial arterial flow. It is evident that January 2017 he had bilateral lower extremity noninvasive arterial exam at rest which was interpreted by Dr. Rod as normal The patient does note that he has significant bilateral lower extremity swelling. He does not utilize support hose. This patient is referred for surgical consultation by Dr. Luann Lang for consideration of placement of a arteriovenous fistula for hemodialysis. A written copy of my surgical consult recommendations will be returned to Dr. Luann Lang. [facility] Musculoskeletal: Yes back problems Cardio Cardiovascular: Yes high blood pressure and heart stent Resp Respiratory: Yes shortness of breath, Yes sleep apnea, Yes cough [place] Hematologic: Yes blood thinners Exam Const General: cooperative, no acute distress Nutritional Appearance: obese Orientation: oriented to person [facility] Head: normal to inspection Mouth: oral mucosae normal Neck Neck mass: No Carotids: normal carotid upstroke Resp Auscultation: crackles (Slight crackles noted bibasilar) bilaterally Cardio Rate: regular rate Rhythm: regular rhythm Pulses: other (Distant heart sounds) GI Palpation: soft Auscultation: normal bowel sounds Other: Very difficult to detect internal organs secondary to body habitus Skin Other: Multiple facial skin tears to the right hand right forearm right upper extremity. Hyperpigmentation noted bilateral upper extremities Extrem General: no pedal edema (4+ bilateral lower extremity edema) Assessment AND Plan Plan 76-year-old gentleman who appears at least his stated age if not older. Frail skin bilaterally. Poor memory. Stage IV renal failure. Likely diabetes out of control. Significant lower extremity edema. I visually inspected his left forearm with ultrasound demonstrating a patent cephalic vein although it extends more laterally and dorsally upon the wrist area. Unfortunately appears to be deeply placed in part related to the patient's obesity. I have proposed to him that we obtain updated laboratory including a hemoglobin A1c. He may require ongoing medical maximization prior to surgery. I have proposed for him a transposition left forearm cephalic vein to radial artery arteriovenous fistula creation. He is aware of the technique, benefits, risks, alternatives. He has had an opportunity to ask and have questions answered. He is well aware there are no guarantees of success. We will have him hold his clopidogrel 3 days preoperatively. I appreciate the opportunity of assisting with her surgical care Cc: Dr. Britt and Dr. Luann Brown M.D., F.A.C.S. Orders Orders: 04/27/17 1604 <Electronically signed by Liam Brown MD> Date Liam Brown MD Cosigner Signature: Date (if applicable) CC: Luann Lang DO; Justice Britt MD CBC W/DIFF, AUTOMATED Collected: 04/27/2017 Status: F Source: [place] 3:34 PM [facility] TYPE CODE TESTS RESULT OUT OF RANGE REFERENCE UNITS LAB L100.1000 4.4-11.0 K/mm3 Normal WBC 9.8 LAB L100.1200 4.6-6.2 M/mm3 Low RBC 4.18 LAB L100.1300 13.0-16.5 g/dl Low HGB 11.9 LAB L100.1400 40-54 % Low HCT 36.6 LAB L100.1500 80-94 fL Normal MCV 87.6 LAB L100.1600 27.0-32.0 pg Normal MCH 28.5 LAB L100.1700 32-36 g/gl Normal MCHC 32.5 LAB L100.1810 11.6-14.6 % Normal RDW CV 14.6 LAB L100.1820 35.1-43.9 fl High RDW SD 46.1 LAB L100.1900 150-450 K/mm3 Normal PLT 240 LAB L100.2000 6.2-12.0 fl Normal MPV 9.9 LAB L100.2100 47-70 % High NEUT% 75.0 LAB L100.2200 19-41 % Low LY% 16.1 LAB L100.2300 0-10 % Normal MONO% 7.4 LAB L100.2400 0-5 % Normal EO% 1.0 LAB L100.2500 0-1 % Normal BASO% 0.3 LAB L100.2550 0.0-0.9 % Normal IM GRAN % 0.200 Result Comment: IG% - Immature Granulocytes (promyelocytes, myelocytes and metamyelocytes) > 1% indicates that a LEFT SHIFT is Present. LAB L100.2620 2.0-7.7 X10 3/uL Normal Absolute Neut 7.3 LAB L100.2720 0.83-4.51 X10 3/ul Normal Absolute Lymph 1.57 Performed By: #### L100.0100, L500.2500 #### [facility] [place], [place], [address] BASIC METABOLIC Collected: 04/27/2017 Status: F Source: [place] PROFILE (BMP) 3:34 PM [facility] TYPE CODE TESTS RESULT OUT OF RANGE REFERENCE UNITS LAB L501.0100 70-110 mg/dL High GLU 117 Result Comment: Fasting Glucose result from 110 to <126 mg/dL suggests IMPAIRED HOMEOSTASIS per A.D.A. criteria. LAB L501.1000 7-18 mg/dL High BUN 41 LAB L501.1100 0.70-1.30 mg/dL High CREAT,SERUM 2.88 Result Comment: The validity of the calculated GFR AND GFRAA in patients over 70 years has not been determined. Clinical correlation is essential. LAB L501.1110 >60 mL/min Low EST GFR 23 Result Comment: Non- GFR Calc LAB L501.1115 >60 mL/min Low EST GFR - AA 27 Result Comment: GFR Calc LAB L501.1300 10-20 RATIO Normal BUN/CRE 14.2 LAB L501.2200 8.5-10.1 mg/dL Low CA 8.4 LAB L501.5300 136-145 mmol/L NA Normal 141 LAB L501.5600 3.5-5.1 mmol/L K Normal 3.6 LAB L501.5900 98-107 mmol/L CL Normal 106 LAB L501.6100 21.0-32.0 mmol/L Normal CO2 24.0 LAB L501.6200 5-15 Normal GAP 11 Performed By: #### L100.0100, L500.2500 #### [facility] [address] [place], [address] HEMOGLOBIN A1C Collected: 04/27/2017 Status: F Source: [place] 3:34 PM [facility] TYPE CODE TESTS RESULT OUT OF RANGE REFERENCE UNITS LAB L501.9985 4.2-6.3 % High HGB A1C 7.2 Performed By: #### L501.9985 #### [facility] [address] [place], [address] VENOUS DUPLEX UPPER Observed: 04/20/2017 Status: F Source: [place] EXTREMITY 4:35 PM [facility] [address] [place] [address] Saphenous Vein Mapping, Bilat 04/20/17 1211 MR#: [id number] Acct: [id number] Name: ARIANNA GUILLERMO Rep #: [id number] : 1940 76 From: Liam Brown MD Attending Dr: Luann Lang DO Status: REG CLI Ordering Dr: Luann Lang DO Date: 04/20/17 Location: [facility] Sex: M C Admitted: Reason For Study: Assess for possible dialysis placement - CKD Right Arm Left Arm Right Cephalic Vein at the wrist Left Cephalic Vein at the wrist measures .32 measures .33 x .30 cm. x .34 cm. Right Cephalic Vein in the forearm Left Cephalic Vein in the forearm measures .33 x .40 cm. measures .32 x .32 cm. Right Cephalic Vein below antecub Left Cephalic Vein below antecub measures .29 x .30 cm. measures .36 x .38 cm. Right Cephalic Vein above antecub Left Cephalic Vein above antecub measures .45 x .50 cm. measures .57 x .65 cm. Right Cephalic Vein mid bicep measures .47 Left Cephalic Vein at mid bicep measures .54 x .50 cm. x .50 cm. Right Cephalic Vein at the shoulder Left Cephalic Vein at the shoulder measures .46 x .48 cm. measures .47 x .47 cm. Basilic V not visualized. Basilic vein at origin measures .28 x .31 cm. Brachial artery - .64 x .67 cm with a Basilic vein at bicep measures .32 x .34 cm. velocity of 89.6 cm/sec Basilic vein above antecub measures .33 Radial artey - .39 x .43 cm with a velocity x .35 cm. of 140.0 cm/s. Brachial artery - .57 x .57 cm with a velocity of 99.7 cm/s Radial artery - .36 x .38 cm with a velocity of 56.9 cm/s. < Interpretation Summary Patent and compressible bilateral upper extremity cephalic and basilic veins with adequate dimensions as noted. Normal diameter and flow bilateral radial and brachial arteries. Ordering Physician: Luann Lang Referring Physician: Norris Pastrana Performed By: Sandra Sidhu RVT 04/20/17 1635 Date Liam Brown MD CC: Luann Lang DO; Justice Britt MD Date Dictated: 04/20/17 1211 Date Transcribed: 04/20/17 1635 Veterinary Epidemiologist: Signed ALLERGIES ALLERGIES DATE TYPE / CODE NAME / CODE REACTION SEVERITY SOURCE 02/20/2018 Drug doxazosin Hives Unknown [place] [facility]/416 mesylate/[id number] [facility] [id number]([facility] 61([facility] ED CT) Repository 02/20/2018 Drug fosinopril Hives Unknown [place] [facility]/416 sodium/[id number] [facility] [id number]([facility] ([facility] ED CT) Repository 02/20/2018 Drug JAMEEL Unknown Unknown [place] [facility]ergy/416 Inhibitors/[id number] [facility] [id number]([facility] 0147([facility] ED CT) Repository 02/20/2018 Drug lisinopril/Q10061 Hives Unknown [place] [facility]/416 0658(RXNORM) [facility] [id number]([facility] ED CT) Repository 02/20/2018 Drug morphine/[id number] Other Unknown [place] Allergy/416 45(RXNORM) [facility] [id number]([facility] ED CT) Repository 02/20/2018 Drug ibuprofen/[id number] Unknown Unknown [place] Allergy/416 377(RXNORM) [facility] [id number]([facility] ED CT) Repository ENCOUNTERS ENCOUNTERS ADMIT/DISCHARGE ACCOUNT ADMITTING ENCOUNTER LOCATION SOURCE NUMBER CLASS 04/12/2018 [id number] Ambulatory BMSBuilding:B [place] 8 [place] Repository 04/12/2018/ [id number] Ambulatory Andrea [place] 8 3 [facility] ing:CLSP Repository 04/10/2018/ [id number] Ambulatory BMSBuilding:B [place] 8 9 [facility] Repository 04/05/2018 [id number] Ambulatory [place] Andrea 8 [facility] ing:LAB.FUTUR Repository E 03/30/2018 [id number] Ambulatory Andrea [place] 0 [facility] ing:OLS.AVEC Repository 03/22/2018 [id number] [facility] [place] [facility]S.AVEC Repository 03/18/2018 [id number] Ambulatory Andrea [place] 1 [facility] Hospital ing:LAB.FUTUR Repository E 02/25/2018 [id number] Ambulatory [place] 9 [facility] Hospital ing:OLS.AVEC Repository 02/22/2018 [id number] Ambulatory Andrea [place] 1 [facility] Hospital ing:OLS.AVEB Repository 02/20/2018/ [id number] Ambulatory BMSBuilding:B [place] 8 7 [facility] Repository 02/20/2018 [id number] Ambulatory [place] 1 [facility]:OLS.AVEC Repository 02/12/2018/ [id number] Ambulatory BMSBuilding:B [place] 8 7 [facility] Repository 02/05/2018 [id number] Ambulatory [place] Andrea 4 [facility] ing:OLS.AVEC Repository 01/30/2018 [id number] Ambulatory Andrea Andrea 9 [facility] ing:OLS.AVED Repository 01/17/2018 [id number] Ambulatory BMSBuilding:B [place] 0 [place] Repository 01/17/2018 [id number] Ambulatory Andrea [place] 7 [facility] ing:LAB.FUTUR Repository E 01/10/2018 [id number] Ambulatory Andrea Andrea 4 [facility] ing:POLAB3 Repository 12/21/2017 [id number] Ambulatory [place] 2 [facility] Hospital ing:POLAB3 Repository 12/11/2017/ [id number] Ambulatory BMSBuilding:B [place] 8 5 [facility] Hospital Repository 12/04/2017/ [id number] Ambulatory Andrea Andrea 8 7 [facility] ing:CLSP Repository 12/04/2017 [id number] Ambulatory BMSBuilding:B [place] 7 [place] Hospital Repository 12/04/2017 [id number] Ambulatory [place] Andrea 6 [facility] ing:LAB.FUTUR Repository E 11/13/2017 [id number] Ambulatory [place] Andrea 7 [facility] ing:POLAB3 Repository 11/12/2017/ [id number] Ambulatory BMSBuilding:B [place] 8 7 [facility] Hospital Repository 11/08/2017 [id number] Ambulatory BMSBuilding:B [place] 0 [place] Hospital Repository 09/20/2017/ [id number] Ambulatory [place] 8 0 [facility] ing:PT Repository 09/14/2017 [id number] Ambulatory [place] 2 [facility] ing:POLAB3 Repository 09/13/2017 [id number] Ambulatory BMSBuilding:B [place] 1 [facility] Repository 09/11/2017 [id number] Ambulatory [place] 2 [facility] ing:RAD Repository 08/30/2017/ [id number] Ambulatory BMSBuilding:B [place] 8 5 [facility] Hospital Repository 08/27/2017 [id number] Ambulatory [place] Andrea 2 [facility] ing:CVS Repository 08/27/2017 [id number] Ambulatory [place] 4 [facility] ing:POLAB3 Repository 08/02/2017/ [id number] Ambulatory BMSBuilding:B [place] 8 5 [facility] Hospital Repository 07/27/2017 [id number] Ambulatory [place] 9 [facility] ing:CLSP Repository 07/27/2017 [id number] Ambulatory BMSBuilding:B [place] 5 [place] Hospital Repository 07/26/2017 [id number] Ambulatory [place] 6 [facility] Hospital ing:LAB.FUTUR Repository E 07/24/2017 [id number] Ambulatory [place] Andrea 9 [facility] ing:PSN Repository 07/23/2017 [id number] Ambulatory BMSBuilding:B [place] 0 [facility] Repository 07/10/2017/ [id number] Ambulatory BMSBuilding:B [place] 8 5 [facility] Repository 07/02/2017 [id number] Ambulatory Andrea [place] 4 [facility] ing:LAB.FUTUR Repository E 06/29/2017 [id number] Ambulatory [place] Andrea 7 [facility] Hospital ing:CVS Repository 06/28/2017 [id number] Ambulatory [place] 5 [facility] ing:POLAB3 Repository 06/25/2017 [id number] Ambulatory Andrea [place] 2 [facility] ing:RAD Repository 06/19/2017/ [id number] Ambulatory BMSBuilding:B [place] 8 5 [facility] Repository 06/18/2017 [id number] Ambulatory [place] Andrea 8 [facility] ing:LAB Repository 06/14/2017 [id number] Ambulatory [place] 4 [facility] ing:PSN Repository 06/11/2017 [id number] Ambulatory [place] Andrea 0 [facility] ing:POLAB3 Repository 06/07/2017 [id number] Ambulatory Andrea [place] 2 [facility] ing:CT Repository 06/05/2017/ [id number] Ambulatory BMSBuilding:B [place] 8 7 [facility] Hospital Repository 05/31/2017 [id number] Ambulatory [place] 0 [facility] ing:CVS Repository 05/31/2017 [id number] Ambulatory [place] 3 [facility] ing:LAB.FUTUR Repository E 05/27/2017/ [id number] Emergency [place] 8 0 [facility] ing:ED Repository 05/24/2017 [id number] Ambulatory [place] 1 [facility] Hospital ing:US Repository 05/22/2017 [id number] Ambulatory [place] Andrea 3 [facility] ing:POLAB3 Repository 05/22/2017/ [id number] Ambulatory BMSBuilding:B [place] 8 7 [facility] Hospital Repository 05/17/2017/ [id number] Ambulatory BMSBuilding:B [place] 8 4 [place].[facility] Hospital Repository 05/10/2017/ [id number] Ambulatory [place] 8 1 [facility] ing:SDC Repository 05/10/2017 [id number] Ambulatory BMSBuilding:W [place] 5 [facility] Repository 05/10/2017 [id number] Ambulatory BMSBuilding:B [place] 8 [place] Repository 05/09/2017/ [id number] Ambulatory BMSBuilding:B [place] 8 8 [facility] Repository 05/07/2017 [id number] Ambulatory [place] 7 [facility] ing:LAB.FUTUR Repository E 04/27/2017 [id number] Ambulatory [place] 9 [facility] ing:MTLAB Repository 04/27/2017/ [id number] Ambulatory BMSBuilding:B [place] 7 1 [facility] Repository 04/20/2017 [id number] Ambulatory [place] 3 [facility] ing:CVS Repository 04/20/2017 [id number] Ambulatory BMSBuilding:B [place] 0 [place] Repository PAYERS PAYERS ENCOUNTER GUARANTOR PAYER SUBSCRIBER SOURCE 04/12/2018 ARIANNA L Primary NOT GIVENUNK [place] Insurance:SELF PAY [place] [id number] E Number: Effective Repository [place] Date:2018-04-12 [place], [place] [address]Kxm: () 04/12/2018 ARIANNA L Primary NOT GIVENUNK [place] Insurance:SELF PAY [place] [id number] E Number: Effective Repository [place] Date:2018-04-10 [place], [place] [address]Oxc: () 04/10/2018 ARIANNA L Primary ARIANNA L [place]DNERTHE Insurance:MEDICARE BALDNERDOB: [facility] [id number] [address] E Number: Repository [place] [id number] [place] Date:2018-04-04 [place], [place] [address]Ikm: () 04/10/2018 Secondary ARIANNA L [place] Insurance:ANTHEMPolic BALDNERDOB: Community y Number: [id number] Hospital [id number] Repository Date:8359-56-43HB [address] [place] [address]SF: 04/10/2018 Tertiary NOT GIVENUNK Andrea Insurance:SELF PAY [facility] Number: Effective Repository Date:2018-04-04 04/05/2018 ARIANNA L Primary ARIANNA L [place] Insurance:MEDICARE BALDNERDOB: [facility] PART A [facility] [id number]1700 E Number: Repository [place] [id number] [place] Date:2018-04-05 [place], [place] [address]Nqz: () 04/05/2018 Secondary ARIANNA L [place] Insurance:ANTHEMPolic BALDNERDOB: Community y Number: [id number] Hospital [id number] Repository Date:7901-45-72SO[address] [address]GS: 04/05/2018 Tertiary NOT GIVENUNK Andrea Insurance:SELF PAY [facility] Number: Effective Repository Date:2018-04-05 03/30/2018 Arianna L Primary NOT GIVENUNK [place] Bald[place] Insurance:SELF PAY [facility]1700 E Number: Effective Repository [place] Date:2018-03-30 [place], [place] [address]Liq: () 03/22/2018 ARIANNA L Primary ARIANNA L [place] Insurance:MEDICARE BALDNERDOB: [facility] PART A [facility] [id number] Hospital [id number] E Number: Repository [place] [id number] [place] Date:2018-03-22 [place], [place] [address]Bqw: () 03/22/2018 Secondary ARIANNA L [place] Insurance:ANTHEMPolic BALDNERDOB: Community y Number: [id number] Hospital [id number] Repository Date:7575-54-87[address] [place] [address]FV: 03/22/2018 Tertiary NOT GIVENUNK Andrea Insurance:SELF PAY [facility]: Effective Repository Date:2018-03-22 03/18/2018 ARIANNA L Primary ARIANNA L Andrea [place] Insurance:MEDICARE BALDNERDOB: [facility] A [facility] [id number] [address] E Number: Repository [place] [id number] [place] Date:2018-03-18 [place], [place] [address]Vmx: () 03/18/2018 Secondary ARIANNA L [place] Insurance:ANTHEMPolic BALDNERDOB: Community y Number: [id number] Hospital [id number] Repository Date:1681-43-37[address]LTXQZ, [place] [address]CQ: 03/18/2018 Tertiary NOT GIVENUNK [place] Insurance:SELF PAY [facility] Number: Effective Repository Date:2018-03-18 02/25/2018 ARIANNA L Primary ARIANNA L [place]DNERT[place] Insurance:MEDICARE BALDNERDOB: [facility] [address] PART A [facility] [id number] [address] E Number: Repository [place] [id number] [place] Date:2018-02-25 [place], [place] [address]Qft: () 02/25/2018 Secondary ARIANNA L [place] Insurance:ANTHEMPolic BALDNERDOB: Community y Number: [id number] Hospital [id number] Repository Date:0740-61-44MW [address] [place] [address]VX: 02/25/2018 Tertiary NOT GIVENUNK Andrea Insurance:SELF PAY [facility] Number: Effective Repository Date:2018-02-25 02/22/2018 ARIANNA L Primary ARIANNA L [place] Insurance:MEDICARE BALDNERDOB: [facility] [address] PART A [facility] [id number] [facility]1700 E Number: Repository [place] [id number] [place] Date:2018-02-22 [place], [place] [address]New: () 02/22/2018 Secondary ARIANNA L [place] Insurance:ANTHEMPolic BALDNERDOB: Community y Number: [id number] Hospital [id number] Repository Date:8619-61-44TZ [address] [address]PJ: 02/22/2018 Tertiary NOT GIVENUNK [place] Insurance:SELF PAY [facility] Number: Effective Repository Date:2018-02-22 02/20/2018 ARIANNA L Primary ARIANNA L [place] Insurance:MEDICARE BALDNERDOB: [facility] A [facility] [id number] [address] E Number: Repository [place] [id number] [place] Date:2017-05-09 [place], [place] [address]Wse: () 02/20/2018 Secondary ARIANNA L [place] Insurance:ANTHEMPolic BALDNERDOB: Community y Number: [id number] Hospital [id number] Repository Date:2560-29-81KR[address] [address]II: 02/20/2018 Tertiary NOT GIVENUNK Andrea Insurance:SELF PAY [facility] Number: Effective Repository Date:2018-02-15 02/20/2018 ARIANNA L Primary ARIANNA L [place] Insurance:ANTHEMPolic BALDNERDOB: [facility] [address] OF y Number: [id number] Regional Medical Center1700 E [id number] Repository [place] Date:9957-72-01IH [address] [address]SX: [phone]: [phone] () 02/20/2018 Secondary ARIANNA L [place] Insurance:MEDICARE BALDNERDOB: [facility] PART A [facility] [id number] Hospital Number: Repository [id number] Date:2018-02-20 02/20/2018 Tertiary NOT GIVENUNK [place] Insurance:SELF PAY [facility] Number: Effective Repository Date:2018-02-20 02/12/2018 ARIANNA L Primary ARIANNA L [place] [id number] CR Insurance:MEDICARE BALERDOB: [address] PART A [facility] [id number], [place] [address]Pex: Number: Repository [id number] () Date:2018-01-02 02/12/2018 Secondary ARIANNA L [place] Insurance:ANTHEMPolic BALDNERDOB: Community y Number: [id number] Hospital [id number] Repository Date:3308-27-44CN [address] [place] [address]NW: 02/12/2018 Tertiary NOT GIVENUNK [place] Insurance:SELF PAY [facility] Number: Effective Repository Date:2018-02-12 02/05/2018 ARIANNA L Primary ARIANNA L [place] Insurance:MEDICARE BALDNERDOB: [facility] [address] PART A [facility] [id number] Regional Medical Center1700 E Number: Renee MTZSELECT [facility] [id number] [place] Date:2018-02-05 [place], [place] [address]Jfw: () 02/05/2018 Secondary ARIANNA L [place] Insurance:ANTHEMPolic BALDNERDOB: Community y Number: [id number] Hospital [id number] Repository Date:9218-37-78YA [address] [place] [address]HI: 02/05/2018 Tertiary NOT GIVENUNK [place] Insurance:SELF PAY [facility] Number: Effective Repository Date:2018-02-05 01/30/2018 ARIANNA L Primary ARIANNA L [place] Insurance:ANTHEMPolic BALDNERDOB: [facility] [address] OF y Number: [id number] Regional Medical Center1700 E [id number] Repository [place] Date:0404-96-09CH [facility] [id number] [place] [address]IY: [phone]: [phone] () 01/30/2018 Secondary ARIANNA L [place] Insurance:MEDICARE BALDNERDOB: Community PART A [facility] [id number] Hospital Number: Repository [id number] Date:2018-01-30 01/30/2018 Tertiary NOT GIVENUNK Andrea Insurance:SELF PAY [facility] Number: Effective Repository Date:2018-01-30 01/17/2018 ARIANNA L Primary ARIANNA L [place] [id number] CR Insurance:MEDICARE BALDNERDOB: [place] [id number], [place] [address]Adw: Number: Repository [id number] () Date:2018-01-17 01/17/2018 Secondary ARIANNA L [place] Insurance:ANTHEMPolic BALDNERDOB: Community y Number: [id number] Hospital [id number] Repository Date:7196-75-30DE [address] [place] [address]DX: 01/17/2018 Tertiary NOT GIVENUNK [place] Insurance:SELF PAY [facility] Number: Effective Repository Date:2018-01-17 01/17/2018 ARIANNA L Primary ARIANNA L [place] [id number] CR Insurance:MEDICARE BALDNERDOB: [address] [id number] [place], [place] [address]Xso: Number: Repository [id number] (HP) Date:2018-01-17 01/17/2018 Secondary ARIANNA L [place] Insurance:ANTHEMPolic BALDNERDOB: Community y Number: [id number] Hospital [id number] Repository Date:2914-56-08LI [address]WACMV, [place] [address]TP: 01/17/2018 Tertiary NOT GIVENUNK [place] Insurance:SELF PAY [facility] Number: Effective Repository Date:2018-01-17 01/10/2018 ARIANNA L Primary ARIANNA L [place] [id number] CR Insurance:MEDICARE BALDNERDOB: [address] [address]Dwv: Number: Repository [id number] (HP) Date:2018-01-08 01/10/2018 Secondary ARIANNA L [place] Insurance:ANTHEMPolic BALDNERDOB: Community y Number: [id number] [id number] Repository Date:6056-22-42FG [address] [place] [address] [place] [address]OP: 01/10/2018 Tertiary NOT GIVENUNK [place] Insurance:SELF PAY [facility] Number: Effective Repository Date:2018-01-08 12/21/2017 ARIANNA L Primary ARIANNA L [place] [id number] CR Insurance:MEDICARE BALDNERDOB: [address] , [place] [address]Jdx: Number: Repository [id number] (HP) Date:2017-12-21 12/21/2017 Secondary ARIANNA L [place] Insurance:ANTHEMPolic BALDNERDOB: Community y Number: [id number] [place] [address] [id number] Repository Date:6344-64-45FR [address]BJSWZOO, [place] [address]OT: 12/21/2017 Tertiary NOT GIVENUNK [place] Insurance:SELF PAY [facility] Number: Effective Repository Date:2017-12-21 12/11/2017 ARIANNA L Primary ARIANNA L [place] [id number] CR Insurance:MEDICARE BALDNERDOB: [address] [address]Xmv: Number: Repository [id number] (HP) Date:2017-12-04 12/11/2017 Secondary ARIANNA L [place] Insurance:ANTHEMPolic BALDNERDOB: Community y Number: [id number] [id number] Repository Date:2463-85-23EK [address]CYLFGGJ [place] [address]YQ: 12/11/2017 Tertiary NOT GIVENUNK [place] Insurance:SELF PAY [facility] Number: Effective Repository Date:2017-12-11 12/04/2017 ARIANNA L Primary ARIANNA L [place] [id number] CR Insurance:MEDICARE BALDNERDOB: [address] [address]Tel: Number: Repository [id number] (HP) Date:2017-11-12 12/04/2017 Secondary ARIANNA L [place] Insurance:ANTHEMPolic BALDNERDOB: Community y Number: [id number] [id number] Repository Date:8083-55-24JS [address]HRAWVRP, [place] [address]QF: 12/04/2017 Tertiary NOT GIVENUNK [place] Insurance:SELF PAY [facility] Number: Effective Repository Date:2017-11-12 12/04/2017 ARIANNA L Primary ARIANNA L [place] [id number] CR Insurance:MEDICARE BALDNERDOB: [address] [address]Fdb: Number: Repository [id number] (HP) Date:2017-11-12 12/04/2017 Secondary ARIANNA L [place] Insurance:ANTHEMPolic BALDNERDOB: Community y Number: [id number] [id number] Repository Date:6807-47-43AW [address]WSAHKXW, [place] [address]XG: 12/04/2017 Tertiary NOT GIVENUNK [place] Insurance:SELF PAY [facility] Number: Effective Repository Date:2017-12-04 12/04/2017 ARIANNA L Primary ARIANNA L [place] [id number] CR Insurance:MEDICARE BALDNERDOB: [address] [address]Tel: Number: Repository [id number] (HP) Date:2017-12-04 12/04/2017 Secondary ARIANNA L [place] Insurance:ANTHEMPolic BALDNERDOB: Community y Number: [id number] [id number] Repository Date:9045-50-06HM [address] [place] [address] [place] [address]UC: 12/04/2017 Tertiary NOT GIVENUNK [place] Insurance:SELF PAY [facility] Number: Effective Repository Date:2017-12-04 11/13/2017 ARIANNA L Primary ARIANNA L [place] [id number] CR Insurance:MEDICARE BALDNERDOB: [address] [address]Ktb: Number: Repository [id number] (HP) Date:2017-11-12 11/13/2017 Secondary ARIANNA L [place] Insurance:ANTHEMPolic BALDNERDOB: Community y Number: [id number] [id number] Repository Date:7433-00-76CD [address] [place] [address]PF: 11/13/2017 Tertiary NOT GIVENUNK [place] Insurance:SELF PAY [facility] Number: Effective Repository Date:2017-11-12 11/12/2017 ARIANNA L Primary ARIANNA L [place] [id number] CR Insurance:MEDICARE BALDNERDOB: Community [address] [place], [place] [address] [address]Fbn: Number: Repository [id number] (HP) Date:2017-09-28 11/12/2017 Secondary ARIANNA L [place] Insurance:ANTHEMPolic BALDNERDOB: Community y Number: [id number] [id number] Repository Date:5533-73-07DP [address]FCNDAHK [place] [address]OQ: 11/12/2017 Tertiary NOT GIVENUNK [place] Insurance:SELF PAY [facility] Number: Effective Repository Date:2017-11-12 11/08/2017 ARIANNA L Primary ARIANNA L [place] [id number] CR Insurance:MEDICARE BALDNERDOB: [address] [address]Hhm: Number: Repository [id number] (HP) Date:2017-08-30 11/08/2017 Secondary ARIANNA L [place] Insurance:ANTHEMPolic BALDNERDOB: Community y Number: [id number] [id number] Repository Date:7979-00-07GD [address] [place] [address]NC: 11/08/2017 Tertiary NOT GIVENUNK [place] Insurance:SELF PAY [facility] Number: Effective Repository Date:2017-08-30 09/20/2017 ARIANNA L Primary ARIANNA L [place] [id number] CR Insurance:MEDICARE BALDNERDOB: [address] , [place] [address]Mbf: Number: Repository [id number] (HP) Date:2003-07-30 09/20/2017 Secondary ARIANNA L [place] Insurance:ANTHEMPolic BALDNERDOB: Community y Number: [id number] [id number] Repository Date:6138-55-09ED [address]HHUYHPV, [place] [address]RO: 09/20/2017 Tertiary NOT GIVENUNK [place] Insurance:SELF PAY [facility] Number: Effective Repository Date:2017-09-12 09/14/2017 ARIANNA L Primary ARIANNA L [place] [id number] CR Insurance:MEDICARE BALDNERDOB: [address] [address]Jpf: Number: Repository [id number] (HP) Date:2017-09-03 09/14/2017 Secondary ARIANNA L [place] Insurance:ANTHEMPolic BALDNERDOB: Community y Number: [id number] [id number] Repository Date:8557-56-44GG [address]IYBNXSL, [place] [address]RO: 09/14/2017 Tertiary NOT GIVENUNK [place] Insurance:SELF PAY [facility] Number: Effective Repository Date:2017-09-03 09/13/2017 ARIANNA L Primary ARIANNA L [place] [id number] CR Insurance:MEDICARE BALDNERDOB: [address]04-19[facility] , [place] [address]Myg: Number: Repository [id number] (HP) Date:2017-09-13 09/13/2017 Secondary ARIANNA L [place] Insurance:ANTHEMPolic BALDNERDOB: Community y Number: [id number] Hospital [id number] Repository Date:0122-38-88PI [address]AMCYFCW, [place] [address]XD: 09/13/2017 Tertiary NOT GIVENUNK [place] Insurance:SELF PAY [facility] Number: Effective Repository Date:2017-09-13 09/11/2017 ARIANNA L Primary ARIANNA L [place] [id number] CR Insurance:MEDICARE BALDNERDOB: [address] [address]Qdt: Number: Repository [id number] (HP) Date:2017-09-11 09/11/2017 Secondary ARIANNA L [place] Insurance:ANTHEMPolic BALDNERDOB: Community y Number: [id number] Hospital [id number] Repository Date:2386-53-85QR [address]STXJYRW, [place] [address]FF: 09/11/2017 Tertiary NOT GIVENUNK [place] Insurance:SELF PAY [facility] Number: Effective Repository Date:2017-09-11 08/30/2017 ARIANNA L Primary ARIANNA L [place] [id number] CR Insurance:MEDICARE BALDNERDOB: [address] [address]Dzx: Number: Repository [id number] (HP) Date:2017-08-02 08/30/2017 Secondary ARIANNA L [place] Insurance:ANTHEMPolic BALDNERDOB: Community y Number: [id number] [id number] Repository Date:8799-34-12DN [address]BLFHTCA, [place] [address]RM: 08/30/2017 Tertiary NOT GIVENUNK [place] Insurance:SELF PAY [facility] Number: Effective Repository Date:2017-08-02 08/27/2017 ARIANNA L Primary ARIANNA L [place] [id number] CR Insurance:MEDICARE BALDNERDOB: [address]04[address]19[place], [place] [address]Zqa: Number: Repository [id number] () Date:2017-08-27 08/27/2017 Secondary ARIANNA L [place] Insurance:ANTHEMPolic BALDNERDOB: Community y Number: [id number] [facility] [id number] Repository Date:5896-02-59UN [address]KNRXZPB, [place] [address]XS: 08/27/2017 Tertiary NOT GIVENUNK [place] Insurance:SELF PAY [facility] Number: Effective Repository Date:2017-08-27 08/27/2017 ARIANNA L Primary ARIANNA L [place] [id number] CR Insurance:MEDICARE BALDNERDOB: [address]04[address]19[facility] , [place] [address]Jgw: Number: Repository [id number] () Date:2017-08-27 08/27/2017 Secondary ARIANNA L [place] Insurance:ANTHEMPolic BALDNERDOB: Community y Number: [id number] [facility] [id number] Repository Date:2024-42-03[address]PMCJBRJ, [place] [address]EM: 08/27/2017 Tertiary NOT GIVENUNK [place] Insurance:SELF PAY [facility] Number: Effective Repository Date:2017-08-27 08/02/2017 ARIANNA L Primary ARIANNA L [place] [id number] CR Insurance:MEDICARE BALDNERDOB: [address] [address]Pny: Number: Repository [id number] (HP) Date:2017-07-27 08/02/2017 Secondary ARIANNA L [place] Insurance:ANTHEMPolic BALDNERDOB: Community y Number: [id number] [place] [address] [id number] Repository Date:2142-56-41AW [address] [place] [address]BR: 08/02/2017 Tertiary NOT GIVENUNK [place] Insurance:SELF PAY [facility] Number: Effective Repository Date:2017-08-02 07/27/2017 ARIANNA L Primary ARIANNA L [place] [id number] CR Insurance:MEDICARE BALDNERDOB: [address] [address]Yxs: Number: Repository [id number] (HP) Date:2017-07-11 07/27/2017 Secondary ARIANNA L [place] Insurance:ANTHEMPolic BALDNERDOB: Community y Number: [id number] [place] [address] [id number] Repository Date:3579-92-56VR [address]RCVHXNI, [place] [address]TP: 07/27/2017 Tertiary NOT GIVENUNK [place] Insurance:SELF PAY [facility] Number: Effective Repository Date:2017-07-11 07/27/2017 ARIANNA L Primary ARIANNA L [place] [id number] CR Insurance:MEDICARE BALDNERDOB: [address] [address]Wqi: Number: Repository [id number] (HP) Date:2017-07-11 07/27/2017 Secondary ARIANNA L [place] Insurance:ANTHEMPolic BALDNERDOB: Community y Number: [id number] [id number] Repository Date:8066-84-70BO [address]UNYBGUS, [place] [address]KH: 07/27/2017 Tertiary NOT GIVENUNK [place] Insurance:SELF PAY [facility] Number: Effective Repository Date:2017-07-27 07/26/2017 ARIANNA L Primary ARIANNA L [place] [id number] CR Insurance:MEDICARE BALDNERDOB: [address] [address]Hio: Number: Repository [id number] (HP) Date:2017-07-25 07/26/2017 Secondary ARIANNA L [place] Insurance:ANTHEMPolic BALDNERDOB: Community y Number: [id number] [id number] Repository Date:8113-97-68BP [address] [place] [address]AK: 07/26/2017 Tertiary NOT GIVENUNK [place] Insurance:SELF PAY [facility] Number: Effective Repository Date:2017-07-25 07/24/2017 ARIANNA L Primary ARIANNA L [place] [id number] CR Insurance:MEDICARE BALDNERDOB: [address] [address]Clb: Number: Repository [id number] (HP) Date:2017-07-24 07/24/2017 Secondary ARIANNA L [place] Insurance:ANTHEMPolic BALDNERDOB: Community y Number: [id number] [id number] Repository Date:0833-89-65BO [address] [place] [address]IU: 07/24/2017 Tertiary NOT GIVENUNK [place] Insurance:SELF PAY [facility] Number: Effective Repository Date:2017-07-24 07/23/2017 ARIANNA L Primary ARIANNA L [place] [id number] CR Insurance:MEDICARE BALDNERDOB: [address] [address]Mym: Number: Repository [id number] () Date:2017-07-23 07/23/2017 Secondary ARIANNA L [place] Insurance:ANTHEMPolic BALDNERDOB: Community y Number: [id number] Hospital [id number] Repository Date:4614-75-54ZN [address] [place] [address]IW: 07/23/2017 Tertiary NOT GIVENUNK [place] Insurance:SELF PAY [facility] Number: Effective Repository Date:2017-07-23 07/10/2017 ARIANNA L Primary ARIANNA L [place] [id number] CR Insurance:MEDICARE BALDNERDOB: [address] [id number], [place] [address]Erx: Number: Repository [id number] () Date:2017-06-19 07/10/2017 Secondary ARIANNA L [place] Insurance:ANTHEMPolic BALDNERDOB: Community y Number: [id number] [id number] Repository Date:5294-09-28UF [address] [place] [address]TY: 07/10/2017 Tertiary NOT GIVENUNK [place] Insurance:SELF PAY [facility] Number: Effective Repository Date:2017-06-19 07/02/2017 Arianna L Primary NOT GIVENUNK [place] [id number] Cr Insurance:[address] y Number: [place], [place] [address]Tih: Date:3836-01-57JR BOX Repository [address] [place] [address] () [address]XP: 07/02/2017 Secondary NOT GIVENUNK [place] Insurance:MEDICARE [facility] PART A [facility] Number: Effective Repository Date:2017-04-13 07/02/2017 Tertiary NOT GIVENUNK [place] Insurance:SELF PAY [facility] Number: Effective Repository Date:2017-04-13 06/29/2017 ARIANNA L Primary ARIANNA L [place] [id number] CR Insurance:MEDICARE [facility]: [address] [id number] [facility] , [place] [address]Man: Number: Repository [id number] (HP) Date:2017-06-28 06/29/2017 Secondary ARIANNA L [place] Insurance:ANTHEMPolic BALDNERDOB: Community y Number: [id number] Hospital [id number] Repository Date:7173-47-15FB [address]WFVOOZS, [place] [address]XN: 06/29/2017 Tertiary NOT GIVENUNK [place] Insurance:SELF PAY [facility] Number: Effective Repository Date:2017-06-28 06/28/2017 ARIANNA L Primary ARIANNA L [place] [id number] CR Insurance:MEDICARE BALDNERDOB: [address] [address]Zfm: Number: Repository [id number] (HP) Date:2017-06-28 06/28/2017 Secondary ARIANNA L [place] Insurance:ANTHEMPolic BALDNERDOB: Community y Number: [id number] Hospital [id number] Repository Date:1734-32-17OM [address]QWEBISV, [place] [address]FB: 06/28/2017 Tertiary NOT GIVENUNK [place] Insurance:SELF PAY [facility] Number: Effective Repository Date:2017-06-28 06/25/2017 ARIANNA L Primary ARIANNA L [place] [id number] CR Insurance:MEDICARE BALDNERDOB: Community [address] [place], [place] [address]99-04-19[place], [place] [address]Qbk: Number: Repository [id number] (HP) Date:2017-06-25 06/25/2017 Secondary ARIANNA L [place] Insurance:ANTHEMPolic BALDNERDOB: Community y Number: [id number] Hospital [id number] Repository Date:9967-65-10GB [address]HDUWAMP, [place] [address]CY: 06/25/2017 Tertiary NOT GIVENUNK [place] Insurance:SELF PAY [facility] Number: Effective Repository Date:2017-06-25 06/19/2017 ARIANNA L Primary ARIANNA L [place] [id number] CR Insurance:MEDICARE BALDNERDOB: Community [address] [place], [place] [address] [address]Vpu: Number: Repository [id number] (HP) Date:2017-06-05 06/19/2017 Secondary ARIANNA L [place] Insurance:ANTHEMPolic BALDNERDOB: Community y Number: [id number] Hospital [id number] Repository Date:5558-13-86EN [address] [place] [address]BK: 06/19/2017 Tertiary NOT GIVENUNK [place] Insurance:SELF PAY [facility] Number: Effective Repository Date:2017-06-05 06/18/2017 ARIANNA L Primary ARIANNA L [place] [id number] CR Insurance:MEDICARE BALDNERDOB: [address] [address]Jfx: Number: Repository [id number] (HP) Date:2017-05-28 06/18/2017 Secondary ARIANNA L [place] Insurance:ANTHEMPolic BALDNERDOB: Community y Number: [id number] [facility] [id number] Repository Date:9032-72-93ZO [address] [place] [address]OG: 06/18/2017 Tertiary NOT GIVENUNK [place] Insurance:SELF PAY [facility] Number: Effective Repository Date:2017-05-28 06/14/2017 ARIANNA L Primary ARIANNA L [place] [id number] CR Insurance:MEDICARE BALDNERDOB: [address] [address]Mjm: Number: Repository [id number] (HP) Date:2017-06-14 06/14/2017 Secondary ARIANNA L [place] Insurance:ANTHEMPolic BALDNERDOB: Community y Number: [id number] [facility] [id number] Repository Date:4435-87-20MV [address] [place] [address]JB: 06/14/2017 Tertiary NOT GIVENUNK [place] Insurance:SELF PAY [facility] Number: Effective Repository Date:2017-06-14 06/11/2017 ARIANNA L Primary ARIANNA L [place] [id number] CR Insurance:MEDICARE BALDNERDOB: [address] [id number] [address]Tel: Number: Repository [id number] () Date:2017-06-11 06/11/2017 Secondary ARIANNA L [place] Insurance:ANTHEMPolic BALDNERDOB: Community y Number: [id number] Hospital [id number] Repository Date:3835-20-78TC [address] [place] [address]OG: 06/11/2017 Tertiary NOT GIVENUNK [place] Insurance:SELF PAY [facility] Number: Effective Repository Date:2017-06-11 06/07/2017 ARIANNA L Primary ARIANNA L [place] [id number] CR Insurance:MEDICARE BALDNERDOB: [address] [id number], [place] [address]Zgs: Number: Repository [id number] (HP) Date:2017-06-07 06/07/2017 Secondary ARIANNA L [place] Insurance:ANTHEMPolic BALDNERDOB: Community y Number: [id number] [facility] [id number] Repository Date:6921-09-01TW [address]HRYJTKM[address] [place] [address]ZJ: 06/07/2017 Tertiary NOT GIVENUNK [place] Insurance:SELF PAY [facility] Number: Effective Repository Date:2017-06-07 06/05/2017 ARIANNA L Primary ARIANNA L [place] [id number] CR Insurance:MEDICARE BALDNERDOB: [address] [id number] [address]Bhv: Number: Repository [id number] (HP) Date:2017-05-22 06/05/2017 Secondary ARIANNA L [place] Insurance:ANTHEMPolic BALDNERDOB: Community y Number: [id number] [id number] Repository Date:6227-74-78QV [address]SYDVTFT, [place] [address]XR: 06/05/2017 Tertiary NOT GIVENUNK [place] Insurance:SELF PAY [facility] Number: Effective Repository Date:2017-05-22 05/31/2017 ARIANNA L Primary ARIANNA L [place] [id number] CR Insurance:MEDICARE BALDNERDOB: [address] [address]Hsh: Number: Repository [id number] (HP) Date:2017-05-31 05/31/2017 Secondary ARIANNA L [place] Insurance:ANTHEMPolic BALDNERDOB: Community y Number: [id number] [id number] Repository Date:5294-01-86DM [address]INWUZYM, [place] [address]KV: 05/31/2017 Tertiary NOT GIVENUNK [place] Insurance:SELF PAY [facility] Number: Effective Repository Date:2017-05-31 05/31/2017 ARIANNA L Primary ARIANNA L [place] [id number] CR Insurance:MEDICARE BALDNERDOB: Community [address] [place], [place] [address] [address]Tel: Number: Repository [id number] (HP) Date:2017-05-29 05/31/2017 Secondary ARIANNA L [place] Insurance:ANTHEMPolic BALDNERDOB: Community y Number: [id number] [id number] Repository Date:6764-47-54BP [address]NIJZFIG, [place] [address]BG: 05/31/2017 Tertiary NOT GIVENUNK [place] Insurance:SELF PAY [facility] Number: Effective Repository Date:2017-05-29 05/27/2017 ARIANNA L Primary ARIANNA L [place] [id number] CR Insurance:MEDICARE BALDNERDOB: Community [address] [place], [place] [address] , [place] [address]Cfj: Number: Repository [id number] (HP) Date:2017-05-27 05/27/2017 Secondary ARIANNA L [place] Insurance:ANTHEMPolic BALDNERDOB: Community y Number: [id number] [id number] Repository Date:4274-48-73EX [address] [place] [address] 16[address]NG: 05/27/2017 Tertiary NOT GIVENUNK [place] Insurance:SELF PAY [facility] Number: Effective Repository Date:2017-05-27 05/24/2017 ARIANNA L Primary ARIANNA L [place] [id number] CR Insurance:MEDICARE BALDNERDOB: [address] , [place] [address]Rsu: Number: Repository [id number] (HP) Date:2017-05-22 05/24/2017 Secondary ARIANNA L [place] Insurance:ANTHEMPolic BALDNERDOB: Community y Number: [id number] Hospital [id number] Repository Date:3206-88-91BA [address]ARUIDRL[address] [place] [address]UF: 05/24/2017 Tertiary NOT GIVENUNK [place] Insurance:SELF PAY [facility] Number: Effective Repository Date:2017-05-22 05/22/2017 ARIANNA L Primary ARIANNA L [place] [id number] CR Insurance:MEDICARE BALDNERDOB: [address] , [place] [address]Gqu: Number: Repository [id number] (HP) Date:2017-05-22 05/22/2017 Secondary ARIANNA L [place] Insurance:ANTHEMPolic BALDNERDOB: Community y Number: [id number] [place] [address] [id number] Repository Date:9321-87-49BO [address]WNJABQM, [place] [address]DM: 05/22/2017 Tertiary NOT GIVENUNK [place] Insurance:SELF PAY [facility] Number: Effective Repository Date:2017-05-22 05/22/2017 ARIANNA L Primary ARIANNA L [place] [id number] CR Insurance:MEDICARE BALDNERDOB: [address] [address]Tel: Number: Repository [id number] (HP) Date:2017-05-22 05/22/2017 Secondary ARIANNA L [place] Insurance:ANTHEMPolic BALDNERDOB: Community y Number: [id number] [id number] Repository Date:4991-11-48ZT [address]NPXSNUK, [place] [address]PF: 05/22/2017 Tertiary NOT GIVENUNK [place] Insurance:SELF PAY [facility] Number: Effective Repository Date:2017-05-22 05/17/2017 ARIANNA L Primary ARIANNA L [place] [id number] CR Insurance:MEDICARE BALDNERDOB: [address] [address]Wlz: Number: Repository [id number] (HP) Date:2017-05-11 05/17/2017 Secondary ARIANNA L [place] Insurance:ANTHEMPolic BALDNERDOB: Community y Number: [id number] [place] [address] [id number] Repository Date:5558-37-64JU [address]LGGPBRQ, [place] [address]SR: 05/17/2017 Tertiary NOT GIVENUNK [place] Insurance:SELF PAY [facility] Number: Effective Repository Date:2017-05-11 05/10/2017 ARIANNA L Primary ARIANNA L [place] [id number] CR Insurance:MEDICARE BALDNERDOB: [address] [address]Hmr: Number: Repository [id number] (HP) Date:2017-04-27 05/10/2017 Secondary ARIANNA L [place] Insurance:ANTHEMPolic BALDNERDOB: Community y Number: [id number] [id number] Repository Date:8579-67-00RG [address]UDIFQWI [place] [address]XI: 05/10/2017 Tertiary NOT GIVENUNK [place] Insurance:SELF PAY [facility] Number: Effective Repository Date:2017-04-27 05/10/2017 ARIANNA L Primary ARIANNA L [place] [id number] CR Insurance:MEDICARE BALDNERDOB: [address] [address]Nfz: Number: Repository [id number] (HP) Date:2017-04-27 05/10/2017 Secondary ARIANNA L [place] Insurance:ANTHEMPolic BALDNERDOB: Community y Number: [id number] [id number] Repository Date:1950-13-31WX [address]UQHHULT [place] [address]ES: 05/10/2017 Tertiary NOT GIVENUNK [place] Insurance:SELF PAY [facility] Number: Effective Repository Date:2017-05-10 05/10/2017 ARIANNA L Primary ARIANNA L [place] [id number] CR Insurance:MEDICARE BALDNERDOB: Community [address] [place], [place] [address] [address]Tel: Number: Repository [id number] (HP) Date:2017-04-27 05/10/2017 Secondary ARIANNA L [place] Insurance:ANTHEMPolic BALDNERDOB: Community y Number: [id number] [id number] Repository Date:2866-78-75UZ [address]XXXOJNO, [place] [address]OK: 05/10/2017 Tertiary NOT GIVENUNK [place] Insurance:SELF PAY [facility] Number: Effective Repository Date:2017-05-10 05/09/2017 ARIANNA L Primary ARIANNA L [place] [id number] CR Insurance:MEDICARE BALDNERDOB: [address] PART A [place] [id number] [facility] , [place] [address]Hhn: Number: Repository [id number] () Date:2017-04-01 05/09/2017 Secondary ARIANNA L [place] Insurance:ANTHEMPolic BALDNERDOB: Community y Number: [id number] Hospital [id number] Repository ve Date:2837-57-92YK [address] [place] [address]FB: 05/09/2017 Tertiary NOT GIVENUNK [place] Insurance:SELF PAY [facility] Number: Effective Repository Date:2017-04-01 05/07/2017 Arianna L Primary Arianna L [place] [id number] Cr Insurance:ANTHEMPolic BaldnerDOB: [address] y Number: [id number] [facility] , [place] [address]Zzy: [id number] Repository Date:5240-16-50NW [address] ) [address]NHBWETS[address] [place] [address] 6[address]GW: 05/07/2017 Secondary Arianna L [place] Insurance:MEDICARE BaldnerDOB: [facility] PART A [facility] [place] [facility] [id number] Hospital Number: Repository [id number] Date:2017-04-03 05/07/2017 Tertiary NOT GIVENUNK [place] Insurance:SELF PAY [facility] Number: Effective Repository Date:2017-04-03 04/27/2017 Arianna L Primary Arianna L [place] [id number] Cr Insurance:MEDICARE BaldnerDOB: [address] PART A [facility] [id number] [facility] , [place] [address]Vyu: Number: Repository [id number] (HP) Date:2017-04-27 04/27/2017 Secondary Arianna L [place] Insurance:ANTHEMPolic BaldnerDOB: Community y Number: [id number] [facility] [id number] Repository Date:5639-91-01GJ [address]AXRETFN, [place] [address]XC: 04/27/2017 Tertiary NOT GIVENUNK [place] Insurance:SELF PAY [facility] Number: Effective Repository Date:2017-04-27 04/27/2017 ARIANNA L Primary ARIANNA L [place] [id number] CR Insurance:MEDICARE BALDNERDOB: [address]04[place] [address]Tel: Number: Repository [id number] (HP) Date:2017-04-12 04/27/2017 Secondary ARIANNA L [place] Insurance:ANTHEMPolic BALDNERDOB: Community y Number: [id number] Hospital [id number] Repository Date:8578-62-20SU [address]RRUNSCL, [place] [address]NC: 04/27/2017 Tertiary NOT GIVENUNK [place] Insurance:SELF PAY [facility] Number: Effective Repository Date:2017-04-12 04/20/2017 ARIANNA L Primary ARIANNA L [place] [id number] CR Insurance:MEDICARE BALDNERDOB: [address]04[place] [address]Tel: Number: Repository [id number] (HP) Date:2017-04-12 04/20/2017 Secondary ARIANNA L [place] Insurance:ANTHEMPolic BALDNERDOB: Community y Number: [id number] [id number] Repository Date:0840-75-88AR [address]TYXVNWK, [place] [address]FP: 04/20/2017 Tertiary NOT GIVENUNK [place] Insurance:SELF PAY [facility] Number: Effective Repository Date:2017-04-12 04/20/2017 ARIANNA L Primary ARIANNA L [place] [id number] CR Insurance:MEDICARE BALDNERDOB: [address]04[place] [address]Tel: Number: Repository [id number] (HP) Date:2017-04-12 04/20/2017 Secondary ARIANNA [place] Insurance:ANTHEMPolic LOPEZB: Community y Number: [id number] Hospital [id number] Repository Date:4748-17-23MJ [facility] 800298OMLIAOJ, [place] [address]XB: 04/20/2017 Tertiary NOT GIVENUNK [place] Insurance:SELF PAY [facility] Number: Effective Repository Date:2017-04-20
== END ==
LOC: OLS.AVEC 06:45
PROVIDERS: Visit Provider Family Medicine
DX: E78.5 Hyperlipidemia, unspecified (principal); E03.9 Hypothyroidism, unspecified; R53.83 Other fatigue
CPT/HCPCS: 36415; 80048

== ENCOUNTER 2018-04-12 09:50 | Day surgery (SDC) | payer MEDICARE, BC, MEDICAID, SELFPAY ==
[2018-04-12 10:13] LABS: Hematocrit 31.8 % (40-54); Hemoglobin 10.3 g/dl (13.0-16.5); Mean Corp Hgb Conc 32.4 g/gl (32-36); Mean Corpuscular Hgb 28.4 pg (27.0-32.0); Mean Corpuscular Volume 87.6 fL (80-94); Platelet Count 224 K/mm3 (150-450); RBC Distribution Width SD 44.8 fl (35.1-43.9); Red Blood Count 3.63 M/mm3 (4.6-6.2); Scan Indicated on CBC? Y/N NO; White Blood Count 8.1 K/mm3 (4.4-11.0)
[2018-04-12 10:27] LABS: Anion Gap 7 (5-15); BUN 49 mg/dL (7-18); BUN/Creat Ratio 11.7 RATIO (10-20); Calcium,Total 8.6 mg/dL (8.5-10.1); Chloride 107 mmol/L (98-107); EST Glomerular Filtration Rate 15 mL/min (>60); Est Glom Filt Rate - Afr Amer 18 mL/min (>60); Glucose 98 mg/dL (74-106); Potassium 4.9 mmol/L (3.5-5.1); Sodium Level 141 mmol/L (136-145)
[2018-04-12 10:38] VITALS: BMI 37.5
--- NOTE | 2018-04-12 12:10 | PCM.OPRPT ---
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 77-year-old gent was taken to the special procedure room placed supine on the table. The left upper extremity sterilely prepped and draped. He was very comfortable so no IV sedative was required. Under ultrasound guidance closer to the arterial anastomosis antegrade with flow 2% lidocaine was instilled. Micropuncture needle was inserted. Micropuncture wire inserted. A 6 Maltese short sheath was inserted. Using carbon dioxide fistulogram was taken the forearm and distal upper arm area. This demonstrated 3 areas of high-grade venous stenosis. An SV 5 wire was placed. A 7 x 2 cutting balloon was placed. The more proximal portion of the fistula in the midportion of the fistula treated with cutting balloon and I was planning on treating the more distal part of the fistula close to the antecubital space however the balloon faulted. At that point and I elected to treat the remainder of the areas of stenosis with a 7 x 2 conquest balloon. All of these balloons were insufflated to recommended pressures. At the completion carbon dioxide view demonstrated dramatic improvement. There is some residual stenosis close to the antecubital space. The sheath was removed U suture of 4-0 nylon was placed he was comfortable there was a pulse thrill and bruit Fistulogram demonstrates a left forearm AV fistula with 3 areas of venous stenosis. The more proximal portion of the fistula close to the radial arterial anastomotic area was completely resolved. The mid fistula stenosis also appeared to be resolved. The more distal part of the fistula close to the antecubital space had not completely been treated with the [employer] balloon inflated to maximum load. There is a much improved pulse thrill and bruit. I elected to cease further intervention at this time. He tolerated the procedure well. He does have some extravasation in the mid forearm which will be observed. He was given 4000 units of heparin during the angioplasty. He will be carefully observed and have an office follow-up in 1 week. The patient may require further repeat interventions in the future antegrade with flow and he might require cutting balloon treatment at the antecubital space. Liam Brown M.D., F.A.C.S. Type of Anesthesia:: Local
--- OUTSIDE RECORDS SUMMARY | 2018-05-29 00:21 | XMS RPT_ITS ---
:1940 Author Organization [place] Support Name Relationship Address Phone Cholo Guillermo Unavailable [address] + [place] [address] R Unavailable Unavailable Unavailable Cholo Guillermo Unavailable [address] + [place] [address] R Unavailable Unavailable Unavailable Cholo Guillermo Unavailable [address] + [place] [address] R Unavailable Unavailable Unavailable Cholo Guillermo Unavailable [address] + [place] [address] R Unavailable Unavailable Unavailable Cholo Guillermo Unavailable [address] + [place] [address] R Unavailable Unavailable Unavailable Cholo Guillermo Unavailable [address] + [place] [address] R Unavailable Unavailable Unavailable Cholo Guillermo Unavailable [address] + [place] [address] R Unavailable Unavailable Unavailable Cholo Guillermo Unavailable [address] + [place] [address] R Unavailable Unavailable Unavailable CHOLO GUILLERMO Unavailable [address] + [place] [address] R Unavailable Unavailable Unavailable CHOLO GUILLERMO Unavailable [address] + [place] [address] R Unavailable Unavailable Unavailable CHOLO GUILLERMO Unavailable [address] + [place] [address] R Unavailable Unavailable Unavailable Cholo Guillermo Unavailable . + [place] [address] R Unavailable Unavailable Unavailable Cholo Guillermo Unavailable [address] + [place] [address] R Unavailable Unavailable Unavailable Cholo Guillermo Unavailable . + [place] [address] R Unavailable Unavailable Unavailable BaldnerCholo Unavailable . + [place] [address] R Unavailable Unavailable Unavailable BaltessyerCholo Unavailable . + [place] [address] R Unavailable Unavailable Unavailable BaldnerCholo Unavailable . + [place] [address] R Unavailable Unavailable Unavailable BaldnerCholo Unavailable . + [place] [address] R Unavailable Unavailable Unavailable BaldnerCholo Unavailable [address] + [place] [address] R Unavailable Unavailable Unavailable BaltessyerCholo Unavailable . + [place] [address] R Unavailable Unavailable Unavailable BaltessyerCholo Unavailable . + [place] [address] R Unavailable Unavailable Unavailable BaldnerCholo Unavailable [address] + [place] [address] R Unavailable Unavailable Unavailable CHOLO GUILLERMO Unavailable . + [place] [address] R Unavailable Unavailable Unavailable CHOLO GUILLERMO Unavailable . + [place] [address] R Unavailable Unavailable Unavailable JONOERCHOLO Unavailable . + [place] [address] R Unavailable Unavailable Unavailable JONOERCHOLO Unavailable . + [place] [address] R Unavailable Unavailable Unavailable CHOLO GUILLERMO Unavailable . + [place] [address] R Unavailable Unavailable Unavailable R Unavailable Unavailable Unavailable HORACE GUILLERMO Unavailable [address] + [place] [address] CHOLO GUILLERMO Unavailable Unavailable + R Unavailable Unavailable Unavailable CHOLO GUILLERMO Unavailable . + [place] [address] R Unavailable Unavailable Unavailable MENG GUILLERMOE Unavailable [address] + [place] [address] CHOLO GUILLERMO Unavailable Unavailable + R Unavailable Unavailable Unavailable JONOJORJENICOLLEHORACE Unavailable [address] + [place] [address] CHOLO GUILLERMO Unavailable . + [place] [address] R Unavailable Unavailable Unavailable KINDRADNERNICOLLEHORACE Unavailable [address] + [place] [address] CHOLO GUILLERMO Unavailable . + [place] [address] R Unavailable Unavailable Unavailable BALDNER HORACE Unavailable [address] + [place] [address] CHOLO GUILLERMO Unavailable Unavailable + [place] [address] R Unavailable Unavailable Unavailable BALDNER HORACE Unavailable [address] + [place] [address] CHOLO GUILLERMO Unavailable Unavailable + [place] [address] R Unavailable Unavailable Unavailable BALDNER HORACE Unavailable [address] + [place] [address] CHOLO GUILLERMO Unavailable Unavailable + [place] [address] R Unavailable Unavailable Unavailable KINDRADNERNICOLLEHORACE Unavailable [address] + [place] [address] CHOLO GUILLERMO Unavailable Unavailable + [place] [address] R Unavailable Unavailable Unavailable KINDRADNERNICOLLEHORACE Unavailable [address] + [place] [address] CHOLO GUILLERMO Unavailable Unavailable + [place] [address] R Unavailable Unavailable Unavailable KINDRATESSYERNICOLLEHORACE Unavailable [address] + [place] [address] CHOLO GUILLERMO Unavailable . + [place] [address] R Unavailable Unavailable Unavailable KINDRATESSYERNICOLLEHORACE Unavailable [address] + [place] [address] CHOLO GUILLERMO Unavailable Unavailable + [place] [address] R Unavailable Unavailable Unavailable BALDNER HORACE Unavailable [address] + [place] [address] CHOLO GUILLERMO Unavailable . + [place] [address] R Unavailable Unavailable Unavailable BALDNER, HORACE Unavailable [address] + [place] [address] JONOCHOLO RECINOS Unavailable . + [place] [address] R Unavailable Unavailable Unavailable EAGLE HORACE Unavailable [address] + [place] [address] CHOLO GUILLERMO Unavailable Unavailable + [place] [address] R Unavailable Unavailable Unavailable HORACE GUILLERMO Unavailable [address] + [place] [address] CHOLO GUILLERMO Unavailable Unavailable + [place] [address] R Unavailable Unavailable Unavailable HORACE GUILLERMO Unavailable [address] + [place] [address] CHOLO GUILLERMO Unavailable Unavailable + [place] [address] R Unavailable Unavailable Unavailable HORACE GUILLERMO Unavailable [address] + [place] [address] CHOLO GUILLERMO Unavailable Unavailable + [place] [address] R Unavailable Unavailable Unavailable HORACE GUILLERMO Unavailable [address] + [place] [address] CHOLO GUILLERMO Unavailable Unavailable + [place] [address] R Unavailable Unavailable Unavailable HORACE GUILLERMO Unavailable [address] + [place] [address] EAGLECHOLO Unavailable 1 + [place] [address] R Unavailable Unavailable Unavailable HORACE GUILLERMO Unavailable [address] + [place] [address] KINDRATESSYCHOLO RECINOS Unavailable [address] + [place] [address] R Unavailable Unavailable Unavailable HORACE GUILLERMO Unavailable [address] + [place] [address] EAGLECHOLO Unavailable 1 + [place] [address] R Unavailable Unavailable Unavailable HORACE GUILLERMO Unavailable [address] + [place] [address] CHOLO GUILLERMO Unavailable 1 + [place] [address] R Unavailable Unavailable Unavailable HORACE GUILLERMO Unavailable [address] + [place] [address] CHOLO GUILLERMO Unavailable 1 + [place] [address] R Unavailable Unavailable Unavailable HORACE GUILLERMO Unavailable [address] + [place] [address] CHOLO GUILLERMO Unavailable 1 + [place] [address] R Unavailable Unavailable Unavailable HORACE GUILLERMO Unavailable [address] + [facility] [place] [address] CHOLO GUILLERMO Unavailable 1 + [place] [address] R Unavailable Unavailable Unavailable HORACE GUILLERMO Unavailable [address] + [facility] [place] [address] CHOLO GUILLERMO Unavailable 1 + [place] [address] R Unavailable Unavailable Unavailable HORACE GUILLERMO Unavailable [address] + [facility] [place] [address] CHOLO GUILLERMO Unavailable 1 + [place] [address] R Unavailable Unavailable Unavailable HORACE GUILLERMO Unavailable [address] + [facility] [place] [address] CHOLO GUILLERMO Unavailable 1 + [place] [address] R Unavailable Unavailable Unavailable HORACE GUILLERMO Unavailable [address] + [facility] [place] [address] CHOLO GUILLERMO Unavailable 1 + [place] [address] R Unavailable Unavailable Unavailable HORACE GUILLERMO Unavailable [address] + [facility] [place] [address] CHOLO GUILLERMO Unavailable Unavailable + R Unavailable Unavailable Unavailable HORACE GUILLERMO Unavailable [address] + [facility] [place] [address] CHOLO GUILLERMO Unavailable NA + [place], [place] R Unavailable Unavailable Unavailable HORACE GUILLERMO Unavailable [address] + [place] [address] CHOLO GUILLERMO Unavailable NA + [place], [place] R Unavailable Unavailable Unavailable HORACE GUILLERMO Unavailable [address] + [place] [address] CHOLO GUILLERMO Unavailable NA + [place], [place] R Unavailable Unavailable Unavailable Care Team Providers Name Role Phone Liam Brown Attending Unavailable Nicolas, Justice Chi Referring Unavailable Cebunohemy, Lima Attending Unavailable Cebul, Liam Referring Unavailable Nicolas, Justice Chi Primary Care Unavailable Cebul, Liam Attending Unavailable Cebul, Liam Referring Unavailable Nicolas, Justice Chi Primary Care Unavailable Liam Brown Consulting Unavailable Liam Brown Attending Unavailable Nicolas, Justice Chi Referring Unavailable Norris Murphy Attending Unavailable MurphyNorris Attending Unavailable Nicolas, Justice Chi Attending Unavailable Nicolas, Justice Chi Primary Care Unavailable Nicolas, Justice Chi Attending Unavailable Nicolas, Justice Chi Referring Unavailable Nicolas, Justice Chi Primary Care Unavailable Nicolas, Justice Chi Primary Care Unavailable Uli Laguerre Attending Unavailable Norris Murphy Attending Unavailable Raven Vo Attending Unavailable Luann Lang Attending Unavailable Nicolas, Justice Chi Primary Care Unavailable Norris Murphy Attending Unavailable Norris Murphy Attending Unavailable Nicolas, Justice Chi Attending Unavailable Nicolas, Justice Chi Primary Care Unavailable Nicolas, Justice Chi Attending Unavailable Nicolas, Justice Chi Referring Unavailable Nicolas, Justice Chi Primary Care Unavailable Mason Rod Consulting Unavailable Jaylin New PA-C Attending Unavailable Nicolas, [...] Unavailable Nicolas, Justice Chi Primary Care Unavailable AurelLiam Consulting Unavailable Virgen PA-Jayiln Livingston Attending Unavailable Nicolas, Justice Chi Referring Unavailable [...] Primary Care Unavailable Liam Brown Attending Unavailable Cebul, Liam Referring Unavailable Nicolas, [...] Attending Unavailable Norris Pastrana Attending Unavailable Nicolas, Jusitce Chi Referring Unavailable Jeffrey, Norris Attending Unavailable Murphy, Norris Attending Unavailable Luann Lang Attending Unavailable Nicolas, Justice Chi Primary Care Unavailable Norris Murphy Attending Unavailable Norris Murphy Attending Unavailable AbhishekLuann Attending Unavailable Nicolas, Justice Chi Primary Care Unavailable PROBLEMS PROBLEMS DATE TYPE CONDITION / CODE ATTENDING STATUS SOURCE Unknown E03.9 - Hypothyroidism, Norris Murphy Active [place] 9 unspecified / Community E03.9(ICD-10) Hospital Repository Unknown E78.5 - Hyperlipidemia, Norris Murphy Active [place] 9 unspecified / Community E78.5(ICD-10) Hospital Repository Unknown I10 - Essential Jeffrey Norris Active [place] 9 (primary) hypertension / Community I10(ICD-10) Hospital Repository Unknown R60.9 - Edema, MurphyNorris garcia Active [place] 9 unspecified / Community R60.9(ICD-10) Hospital Repository Unknown R53.83 - Other fatigue / Norris Murphy Active [place] 9 R53.83(ICD-10) [facility] Repository Unknown E87.5 - Hyperkalemia / Norris Murphy Active [place] 8 E87.5(ICD-10) [facility] Repository Unknown T82.598A - Other Liam Brown Active [place] 8 mechanical complication Community of other cardiac and Hospital vascular devices and Repository implants, initial encounter / T82.598A(ICD-10) Unknown N18.4 - Chronic kidney Luann Lang Active [place] 8 disease, stage 4 Community (severe) / N18.4(ICD-10) Hospital Repository Unknown E55.9 - Vitamin D Luann Lang Active [place] 8 deficiency, unspecified Community / E55.9(ICD-10) Hospital Repository Unknown D63.8 - Anemia in other Luann Lang Active [place] 8 chronic diseases Community classified elsewhere / Hospital D63.8(ICD-10) Repository Unknown N25.81 - 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 / Hospital N25.81(ICD-10) Repository Unknown M16.9 - Osteoarthritis Nicolas, Justice Chi Active [place] 8 of hip, unspecified / Community M16.9(ICD-10) Hospital Repository Unknown L50.9 - Urticaria, Nicolas, Justice Chi Active [place] 8 unspecified / Community L50.9(ICD-10) Hospital Repository Unknown M54.6 - Pain in thoracic Nicolas, Justice Chi Active [place] 8 spine / M54.6(ICD-10) [facility] Hospital Repository Unknown M10.9 - Gout, Nicolas, Justice Chi Active [place] 8 unspecified / Community M10.9(ICD-10) Hospital Repository Unknown R06.02 - Shortness of Nicolas, Justice Chi Active [place] 8 breath / R06.02(ICD-10) [facility] Repository Unknown N39.0 - Urinary tract Nicolas, Justice Chi Active [place] 8 infection, site not Community specified / Hospital N39.0(ICD-10) Repository Unknown N18.3 - Chronic kidney Nicolas Justice Chi Active [place] 8 disease, stage 3 Community (moderate) / Hospital N18.3(ICD-10) Repository PROCEDURES PROCEDURES No Procedure Records FoundRESULTS RESULTS RENAL PROFILE Collected: 05/17/2018 Status: F Source: [place] 6:15 AM [facility] [place] [facility] Order Comment: 165 TYPE CODE TESTS RESULT OUT OF RANGE REFERENCE UNITS LAB L501.0100 74-106 mg/dL High GLU 108 Result Comment: Fasting Glucose result from 100 to 125 mg/dL suggests IMPAIRED HOMEOSTASIS per A.D.A. criteria. Please note revised GLUCOSE reference range effective 2017. LAB L501.1000 7-18 mg/dL High BUN 59 LAB L501.1100 0.70-1.30 mg/dL High CREAT,SERUM 3.89 Result Comment: The validity of the calculated GFR AND GFRAA in patients over 70 years has not been determined. Clinical correlation is essential. LAB L501.1110 >60 mL/min Low EST GFR 16 Result Comment: Non- GFR Calc LAB L501.1115 >60 mL/min Low EST GFR - AA 19 Result Comment: GFR Calc LAB L501.1300 10-20 RATIO Normal BUN/CRE 15.2 LAB L501.1800 3.2-5.0 g/dL Low ALB 3.0 LAB L501.2200 8.5-10.1 mg/dL Low CA 8.4 LAB L501.2300 2.5-4.9 mg/dL Normal PHOS 4.4 LAB L501.5300 136-145 mmol/L NA Normal 142 LAB L501.5600 3.5-5.1 mmol/L K Normal 4.2 LAB L501.5900 98-107 mmol/L CL Normal 106 LAB L501.6100 21.0-32.0 mmol/L Normal CO2 25.0 Performed By: #### L500.3600 #### [facility] [address] [place], [address] RENAL PROFILE Collected: 05/13/2018 Status: F Source: [place] 6:10 AM [facility] [place] [facility] Order Comment: ROOM 168 TYPE CODE TESTS RESULT OUT OF RANGE REFERENCE UNITS LAB L501.0100 74-106 mg/dL High GLU 107 Result Comment: Fasting Glucose result from 100 to 125 mg/dL suggests IMPAIRED HOMEOSTASIS per A.D.A. criteria. Please note revised GLUCOSE reference range effective 2017. LAB L501.1000 7-18 mg/dL High BUN 50 LAB L501.1100 0.70-1.30 mg/dL High CREAT,SERUM 3.46 Result Comment: The validity of the calculated GFR AND GFRAA in patients over 70 years has not been determined. Clinical correlation is essential. LAB L501.1110 >60 mL/min Low EST GFR 18 Result Comment: Non- GFR Calc LAB L501.1115 >60 mL/min Low EST GFR - AA 22 Result Comment: GFR Calc LAB L501.1300 10-20 RATIO Normal BUN/CRE 14.5 LAB L501.1800 3.2-5.0 g/dL Normal ALB 3.2 LAB L501.2200 8.5-10.1 mg/dL Low CA 8.4 LAB L501.2300 2.5-4.9 mg/dL Normal PHOS 3.8 LAB L501.5300 136-145 mmol/L NA Normal 141 LAB L501.5600 3.5-5.1 mmol/L K Normal 4.1 LAB L501.5900 98-107 mmol/L CL Normal 106 LAB L501.6100 21.0-32.0 mmol/L Normal CO2 26.0 Performed By: #### L500.3600 #### [facility] [address] [place], [address] PTHIN Collected: 05/02/2018 Status: F Source: [place] 11:17 AM [facility] [place] [facility] TYPE CODE TESTS RESULT OUT OF RANGE REFERENCE UNITS LAB L509.1000 18.4-80.1 pg/mL High PTHIN 164.2 Performed By: #### L509.1000 #### [facility] [address] [place], [address] CBC W/DIFF, AUTOMATED Collected: 05/02/2018 Status: F Source: [place] 5:35 AM [facility] [place] [facility] Order Comment: ROOM 165 TYPE CODE TESTS RESULT OUT OF RANGE REFERENCE UNITS LAB L100.1000 4.4-11.0 K/mm3 Normal WBC 8.2 LAB L100.1200 4.6-6.2 M/mm3 Low RBC 3.50 LAB L100.1300 13.0-16.5 g/dl Low HGB 10.0 LAB L100.1400 40-54 % Low HCT 32.1 LAB L100.1500 80-94 fL Normal MCV 91.7 LAB L100.1600 27.0-32.0 pg Normal MCH 28.6 LAB L100.1700 32-36 g/gl Low MCHC 31.2 LAB L100.1810 11.6-14.6 % Normal RDW CV 14.3 LAB L100.1820 35.1-43.9 fl High RDW SD 46.2 LAB L100.1900 150-450 K/mm3 Normal PLT 211 LAB L100.2000 6.2-12.0 fl Normal MPV 11.2 LAB L100.2100 47-70 % Normal NEUT% 67.1 LAB L100.2200 19-41 % Normal LY% 19.8 LAB L100.2300 0-10 % Normal MONO% 8.9 LAB L100.2400 0-5 % Normal EO% 3.9 LAB L100.2500 0-1 % Normal BASO% 0.2 LAB L100.2550 0.0-0.9 % Normal IM GRAN % 0.100 Result Comment: IG% - Immature Granulocytes (promyelocytes, myelocytes and metamyelocytes) > 1% indicates that a LEFT SHIFT is Present. LAB L100.2620 2.0-7.7 X10 3/uL Normal Absolute Neut 5.5 LAB L100.2720 0.83-4.51 X10 3/ul Normal Absolute Lymph 1.62 Performed By: #### L100.0100 #### [facility] [address] [place], [address] THYROID STIM HORMONE Collected: 05/02/2018 Status: F Source: [place] (TSH) 5:35 AM [facility] [place] [facility] Order Comment: ROOM 165 TYPE CODE TESTS RESULT OUT OF RANGE REFERENCE UNITS LAB L501.9520 0.358-3.74 uIU/mL Normal TSH 2.40 Performed By: #### L501.9520 #### [facility] [address] [facility] [address] [place], [address] BASIC METABOLIC Collected: 04/26/2018 Status: F Source: [place] PROFILE (BMP) 6:05 AM [facility] [place] [facility] Order Comment: ROOM 165 TYPE CODE TESTS RESULT OUT OF RANGE REFERENCE UNITS LAB L501.0100 74-106 mg/dL Normal GLU 87 Result Comment: Please note revised GLUCOSE reference range effective 2017. LAB L501.1000 7-18 mg/dL High BUN 50 LAB L501.1100 0.70-1.30 mg/dL High CREAT,SERUM 4.28 Result Comment: The validity of the calculated GFR AND GFRAA in patients over 70 years has not been determined. Clinical correlation is essential. LAB L501.1110 >60 mL/min Low EST GFR 14 Result Comment: Non- GFR Calc LAB L501.1115 >60 mL/min Low EST GFR - AA 17 Result Comment: GFR Calc LAB L501.1300 10-20 RATIO Normal BUN/CRE 11.7 LAB L501.2200 8.5-10.1 mg/dL Low CA 8.2 LAB L501.5300 136-145 mmol/L NA Normal 144 LAB L501.5600 3.5-5.1 mmol/L K Normal 3.6 LAB L501.5900 98-107 mmol/L CL Normal 103 LAB L501.6100 21.0-32.0 mmol/L Normal CO2 28.0 LAB L501.6200 5-15 Normal GAP 13 Performed By: #### L500.2500 #### [facility] [address] [place], [address] BASIC METABOLIC Collected: 04/22/2018 Status: F Source: [place] PROFILE (BMP) 12:10 PM [facility] [place] [facility] TYPE CODE TESTS RESULT OUT OF RANGE REFERENCE UNITS LAB L501.0100 74-106 mg/dL Normal GLU 92 Result Comment: Please note revised GLUCOSE reference range effective 2017. LAB L501.1000 7-18 mg/dL High BUN 42 LAB L501.1100 0.70-1.30 mg/dL High CREAT,SERUM 3.85 Result Comment: The validity of the calculated GFR AND GFRAA in patients over 70 years has not been determined. Clinical correlation is essential. LAB L501.1110 >60 mL/min Low EST GFR 16 Result Comment: Non- GFR Calc LAB L501.1115 >60 mL/min Low EST GFR - AA 20 Result Comment: GFR Calc LAB L501.1300 10-20 RATIO Normal BUN/CRE 10.9 LAB L501.2200 8.5-10.1 mg/dL Low CA 8.2 LAB L501.5300 136-145 mmol/L NA Normal 141 LAB L501.5600 3.5-5.1 mmol/L K Normal 4.4 LAB L501.5900 98-107 mmol/L CL Normal 107 LAB L501.6100 21.0-32.0 mmol/L Normal CO2 24.0 LAB L501.6200 5-15 Normal GAP 10 Performed By: #### L500.2500 #### [facility] [address] [place], [address] SURGERY VISIT REPORT Observed: 04/19/2018 Status: F Source: [place] 3:05 PM [facility] [place] [facility] [address] [place] [address] OFFICE VISIT Date of Service: 04/19/18 MR#: [id number] Acct: [id number] Name: EAGLEARIANNA L Rep #: [id number] : 1940 Provider: Liam Brown MD Age/Sex: 77/M Location: [facility] Status: Signed Intake Intake Visit Reasons: Suture Removal Fistula 04/12 RC Chief Complaint: post fistulogram Transfer Table Operator Helper Required: No Is patient in pain?: No Allergies JAMEEL Inhibitors Allergy (Verified 04/19/18 14:24) Unknown doxazosin mesylate [From Cardura] Allergy (Verified 04/19/18 14:24) Hives fosinopril sodium [From Monopril] Allergy (Verified 04/19/18 14:24) Hives lisinopril Allergy (Verified 04/19/18 14:24) Hives morphine Allergy (Verified 04/19/18 14:24) Other ibuprofen Adverse Reaction (Unknown, Verified 04/19/18 14:24) Unknown Medications Aspirin [Aspirin, Baby] 81 mg PO DAILY@0800 04/01/14 [History Confirmed 04/19/18] Finasteride [Proscar] 5 mg PO DAILY 04/01/14 [History Confirmed 04/19/18] Nitroglycerin [Nitrostat] 0.4 mg SUBLINGUAL Q5M PRN 02/01/15 [History Confirmed 04/19/18] clopidogrel 75 mg tablet 75 mg PO DAILY #90 tab 06/12/17 [Rx Confirmed 04/19/18] pravastatin 20 mg tablet 20 mg PO QHS #90 tab 08/08/17 [Rx Confirmed 04/19/18] cholecalciferol (vitamin D3) 50,000 unit capsule 50,000 unit PO QWEEK 09/13/17 [History Confirmed 04/19/18] citalopram 20 mg tablet 20 mg PO QDAY 09/13/17 [History Confirmed 04/19/18] donepezil 5 mg tablet 5 mg PO QDAY 09/13/17 [History Confirmed 04/19/18] levothyroxine 25 mcg tablet 50 mcg PO DAILY tab 09/13/17 [History Confirmed 04/19/18] potassium chloride ER 20 mEq tablet,extended release 20 meq PO DAILY tab 01/17/18 [History Confirmed 04/19/18] terazosin 5 mg capsule 5 mg PO DAILY 01/17/18 [History Confirmed 04/19/18] acetaminophen 325 mg capsule 650 mg PO Q6H PRN cap 02/20/18 [History Confirmed 04/19/18] atenolol 50 mg tablet 50 mg PO BID tab 02/20/18 [History Confirmed 04/19/18] bisacodyl 10 mg rectal suppository 10 mg RC DAILY PRN 02/20/18 [History Confirmed 04/19/18] furosemide 80 mg tablet 40 mg PO BID tab 02/20/18 [History Confirmed 04/19/18] magnesium hydroxide 400 mg/5 mL oral suspension 30 ml PO DAILY PRN ml 02/20/18 [History Confirmed 04/19/18] calcitriol 0.25 mcg capsule 0.25 mcg PO DAILY cap 02/27/18 [History Confirmed 04/19/18] ferrous sulfate 325 mg (65 mg iron) tablet 325 mg PO BID tab 02/27/18 [History Confirmed 04/19/18] Subjective Details: 77-year-old gentleman. He has a transposed left forearm cephalic vein radial artery AV fistula. His most recent intervention was 04/12/2018. 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 I performed a carbon dioxide fistulogram and a 7 x 2 cutting balloon angioplasty and a 7 x 2 [employer] angioplasty. He is not yet on hemodialysis. He has no specific complaints Objective Details: Left forearm transposed cephalic vein radial artery AV fistula has a wonderful pulse, thrill, bruit. 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 It is nontender. The skin is intact. Assessment AND Plan Problems 1. Problem with dialysis access, subsequent encounter T82.638A Plan The patient seems to have now a functioning transposed left forearm cephalic vein radial artery AV fistula. It can be utilized for hemodialysis. 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 Skin is intact and this change is mild. It will need to be monitored. It does not require intervention at this time. The patient and his son were both instructed to regarding this area. I would like to avoid needle access at this site if possible. The fistula was created for him April 2017 He has had an opting to ask and have questions answered. I anticipate seeing him back at 3 months for ongoing surgical follow-up. It is of note again that he is not yet on hemodialysis. CC: Dr. Luann Brown M.D., F.A.C.S. Coding Level of Care Code Off vis,est,level 2 Diagnoses Problem with dialysis access, subsequent encounter T82.898A Encounter type: subsequent encounter 04/19/18 1505 <Electronically signed by Liam Brown MD> Date Liam Brown MD Cosigner Signature: Date (if applicable) CC: Luann Lang DO OPERATIVE REPORT Observed: 04/12/2018 Status: F Source: [place] 12:14 PM [facility] [place] [facility] Medical Records Department [address] [place] [address] Operative Report 04/12/18 1210 MR#: [id number] Acct: [id number] Name: ARIANNA GUILLERMO Rep #: [id number] : 1940 77 From: Liam Brown MD PCP: Nicolas HOWE,Justice García Status: [facility] [place] Location: [facility] Problem List (1) Problem [...] was inserted. Micropuncture wire inserted. A 6 British short sheath was inserted. Using carbon dioxide [...] F Source: [place] NO DIFF 10:00 AM [facility] [place] TYPE CODE TESTS RESULT OUT OF [...] MPV 10.0 Performed By: #### L100.0500 #### [facility] [address] [place], [address] BASIC METABOLIC Collected: 04/12/2018 Status: F Source: [place] PROFILE ([facility]) 10:00 AM [facility] [place] TYPE CODE TESTS RESULT OUT OF [...] GAP 7 Performed By: #### L500.2500 #### [facility] [address] [place], [address] SURGERY VISIT REPORT Observed: 04/10/2018 Status: F Source: [place] 3:48 PM [facility] [place] [facility] 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 Problem with dialysis access, subsequent encounter T82.719D Plan Again the patient is not yet [...] Collected: 03/30/2018 Status: F Source: [place] PROFILE (BMP) 6:45 AM [facility] [place] [facility] TYPE CODE TESTS RESULT OUT OF [...] GAP 10 Performed By: #### L500.2500 #### [facility] [address] [place], [place], [id number] CBC-COMPLETE BLOOD CNT Collected: 03/22/2018 Status: F Source: [place] NO DIFF 6:05 AM [facility] [place] [facility] Order Comment: RM:165 TYPE CODE TESTS [...] MPV 10.8 Performed By: #### L100.0500 #### [facility] [address] [facility] [place], [place], [address] RENAL PROFILE Collected: 03/22/2018 Status: F Source: [place] 6:05 AM [facility] [place] [facility] Order Comment: RM:165 TYPE CODE TESTS [...] CO2 27.0 Performed By: #### L500.3600 #### [facility] [address] [place], [address] PTHIN Collected: 03/22/2018 Status: F Source: [place] 6:05 AM [facility] [place] [facility] Order Comment: RM:165 RT AC TYPE CODE TESTS RESULT OUT OF RANGE REFERENCE UNITS LAB L509.1000 18.4-80.1 pg/mL High PTHIN 169.9 Performed By: #### L509.1000 #### [facility] [address] [place], [address] POTASSIUM Collected: 02/25/2018 Status: F Source: [place] 5:30 AM [facility] [place] [facility] Order Comment: ROOM 165 TYPE CODE TESTS RESULT OUT OF RANGE REFERENCE UNITS LAB L501.5600 3.5-5.1 mmol/L Low K 3.1 Performed By: #### L501.5600, L500.3600 #### [facility] [address] [place], [address] RENAL PROFILE Collected: 02/25/2018 Status: F Source: [place] 5:30 AM [facility] [place] [facility] Order Comment: ROOM 165 DR LANG [...] 30.0 Performed By: #### L501.5600, L500.3600 #### [facility] [address] [place], [address] POTASSIUM Collected: 02/22/2018 Status: F Source: [place] 5:35 AM [facility] [place] [facility] Order Comment: RM:165 TYPE CODE TESTS RESULT OUT OF RANGE REFERENCE UNITS LAB L501.5600 3.5-5.1 mmol/L Low alert K 2.5 Result Comment: Critical Result(s) Called to Radha at [facility] [address] [facility] [place] at: 08:27:54 02/22/2018 by: Lissy Performed By: #### L501.5600 #### [facility] [address] [place], [address] CARDIOLOGY VISIT Observed: 02/20/2018 Status: F Source: [place] REPORT 6:24 PM [facility] [place] [facility] [facility] [address] [place] [address] OFFICE VISIT Date of Service: 02/20/18 MR#: [id number] Acct: [id number] Name: ARIANNA GUILLERMO Rep #: [id number] : 1940 Provider: Norris Pastrana MD Age/Sex: 77/M Location: [facility] Status: Signed HPI HPI Details: ARIANNA GUILLERMO, [...] mg PO DAILY 02/20/18 [History Confirmed 02/20/18] [facility] Medical History Fatigue (Chronic) Abnormal electrocardiogram (Chronic) Long-term use of high-risk medication (Chronic) BMI 40.0-44.9, adult (Chronic) Chest pain on exertion (Chronic) Angina pectoris (Chronic) Pulmonary hypertension (Chronic) ALY (obstructive sleep apnea) (Chronic) Abnormal nuclear stress test (Chronic) Diastolic heart failure (Chronic) Sinus bradycardia (Chronic) 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 Assessment AND Plan 1. 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 I25.10 PCI/YESENIA to [...] Code Off vis,est,level 4 Diagnoses 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 I25.10 History of angioplasty Z98.62 Hyperlipidemia E78.5 Hyperlipidemia type: unspecified hyperlipidemia Essential hypertension I10 Hypertension type: essential hypertension Long-term use of high-risk medication Z79.899 Coding Level of Care Code Off vis,est,level 4 Diagnoses 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 I25.10 History of angioplasty Z98.62 Hyperlipidemia E78.5 Hyperlipidemia type: unspecified hyperlipidemia Essential hypertension I10 Hypertension type: essential hypertension Long-term use of high-risk medication Z79.899 02/20/18 1824 <Electronically signed by Norris Pastrana MD> Date Norris Pastrana MD Cosign Signature: Date (if applicable) CC: Justice Britt MD CBC-COMPLETE BLOOD CNT Collected: 02/20/2018 Status: F Source: [place] NO DIFF 8:10 AM [facility] [place] [facility] Order Comment: ROOM 165 TYPE CODE [...] MPV 11.0 Performed By: #### L100.0500 #### [facility] [address] [place], [place], [address] RENAL PROFILE Collected: 02/20/2018 Status: F Source: [place] 8:10 AM [facility] [place] [facility] Order Comment: ROOM 165 TYPE CODE [...] at: 10:03:24 02/20/2018 by: Jeane [facility] LAB L501.5900 98-107 mmol/L Low CL 90 LAB L501.6100 21.0-32.0 mmol/L High CO2 37.0 Performed By: #### L500.3600, L503.6075, L503.6150, L503.6550 #### [facility] [address] [facility] [place], [place], [address] IRON BINDING Collected: 02/20/2018 Status: F Source: [place] CAPACITY,TOTAL 8:10 AM [facility] [place] [facility] Order Comment: ROOM 165 TYPE CODE TESTS RESULT OUT OF RANGE REFERENCE UNITS LAB L503.6075 250-450 ug/dL Normal TIBC 323 Performed By: #### L500.3600, L503.6075, L503.6150, L503.6550 #### [facility] [address] [facility] [place], [address] IRON Collected: 02/20/2018 Status: F Source: [place] 8:10 AM [facility] [place] [facility] Order Comment: ROOM 165 TYPE CODE TESTS RESULT OUT OF RANGE REFERENCE UNITS LAB L503.6150 65-175 ug/dL Low IRON 43 Performed By: #### L500.3600, L503.6075, L503.6150, L503.6550 #### [facility] [address] [place], [address] FERRITIN Collected: 02/20/2018 Status: F Source: [place] 8:10 AM [facility] [place] [facility] Order Comment: ROOM 165 TYPE CODE TESTS RESULT OUT OF RANGE REFERENCE UNITS LAB L503.6550 26-388 ng/mL Normal FERRITIN 77 Performed By: #### L500.3600, L503.6075, L503.6150, L503.6550 #### [facility] [address] [place], [address] PTHIN Collected: 02/20/2018 Status: F Source: [place] 8:10 AM [facility] [place] [facility] Order Comment: ROOM 165 TYPE CODE TESTS RESULT OUT OF RANGE REFERENCE UNITS LAB L509.1000 18.4-80.1 pg/mL High PTHIN 268.6 Performed By: #### L509.1000 #### [facility] [address] [place], [address] SURGERY VISIT REPORT Observed: 02/12/2018 Status: F Source: [place] 1:04 PM [facility] [place] [facility] [address] [place] [address] OFFICE VISIT Date of Service: 02/12/18 MR#: [id number] Acct: [id number] Name: Arianna Guillermo Nohemy Rep #: [id number] : 1940 Provider: Liam Brown MD Age/Sex: 77/M Location: [facility] Status: Signed Intake Intake Visit Reasons: 2 month f/u fistula 12/04 Chief Complaint: post fistulogram Transfer Table Operator Helper Required: No Is patient in pain?: No [...] with dialysis access, subsequent encounter T82.898D Plan The patient appears to have an [...] F Source: [place] PROFILE (BMP) 5:45 AM [facility] [place] [facility] Order Comment: ROOM 165 TYPE CODE [...] GAP 8 Performed By: #### L500.2500 #### [facility] [place], [address] CBC W/DIFF, AUTOMATED Collected: 01/30/2018 Status: F Source: [place] 6:20 AM [facility] [place] [facility] Order Comment: 165 TYPE CODE TESTS [...] Lymph 1.46 Performed By: #### L100.0100 #### [facility] [address] [place], [address] COMPREHENSIVE METABOLIC Collected: 01/30/2018 Status: F Source: [facility] 6:20 AM [facility] [place] [facility] Order Comment: 165 TYPE CODE TESTS [...] Performed By: #### L500.4050, L500.4100, L501.9520 #### [facility] [address] [place], [address] LIPID PROFILE Collected: 01/30/2018 Status: F Source: [place] 6:20 AM [facility] [place] [facility] Order Comment: 165 TYPE CODE TESTS [...] Performed By: #### L500.4050, L500.4100, L501.9520 #### [facility] [address] [place], [address] THYROID STIM HORMONE Collected: 01/30/2018 Status: F Source: [place] (TSH) 6:20 AM [facility] [place] [facility] Order Comment: 165 TYPE CODE TESTS RESULT OUT OF RANGE REFERENCE UNITS LAB L501.9520 0.358-3.74 uIU/mL Normal TSH 2.90 Performed By: #### L500.4050, L500.4100, L501.9520 #### [facility] [address] [place], [address] VITAMIN D,25 HYDROXY Collected: 01/30/2018 Status: F Source: [place] 6:20 AM [facility] [place] [facility] Order Comment: 165 TYPE CODE TESTS RESULT OUT OF RANGE REFERENCE UNITS LAB L506.1000 29.95-100.01 ng/mL Normal Vitamin D 47.4 25-OH Result Comment: Vitamin D 25(OH) Status Range Deficiency <20 ng/mL (50nmol/L) Insuffciency 20 - 30 ng/mL (50 - 75 nmol/L) Sufficiency 30 - 100 ng/mL (75 - 250 nmol/L) Toxicity >100 ng/mL (>250 nmol/L) Performed By: #### L506.1000 #### [facility] [address] [place], [address] RENAL PROFILE Collected: 01/10/2018 Status: F Source: [place] 2:51 PM [facility] [place] [facility] TYPE CODE TESTS RESULT OUT OF [...] CO2 25.0 Performed By: #### L500.3600 #### [facility] [address] [place], [address] CBC-COMPLETE BLOOD CNT Collected: 01/10/2018 Status: F Source: [place] NO DIFF 2:51 PM [facility] [place] [facility] TYPE CODE TESTS RESULT OUT OF [...] MPV 12.1 Performed By: #### L100.0500 #### [facility] [address] [place], [address] PTHIN Collected: 01/10/2018 Status: F Source: [place] 2:51 PM [facility] [place] [facility] TYPE CODE TESTS RESULT OUT OF RANGE REFERENCE UNITS LAB L509.1000 18.4-80.1 pg/mL High PTHIN 244.1 Performed By: #### L509.1000 #### [facility] [address] [place], [address] CBC W/DIFF, AUTOMATED Collected: 12/21/2017 Status: F Source: [place] 12:03 PM [facility] [place] [facility] TYPE CODE TESTS RESULT OUT OF [...] Lymph 1.20 Performed By: #### L100.0100 #### [facility] [address] [place], [address] COMPREHENSIVE METABOLIC Collected: 12/21/2017 Status: F Source: [facility] 12:03 PM [facility] [place] [facility] TYPE CODE TESTS RESULT OUT OF [...] Performed By: #### L500.4050, L501.1400, L501.9520 #### [facility] [address] [place], [address] URIC ACID Collected: 12/21/2017 Status: F Source: [place] 12:03 PM [facility] [place] [facility] TYPE CODE TESTS RESULT OUT OF RANGE REFERENCE UNITS LAB L501.1400 3.5-7.2 mg/dL Normal URIC 4.5 Result Comment: The drugs N-Acetylcysteine and Metamizole may falsely depress this assay. Performed By: #### L500.4050, L501.1400, L501.9520 #### [facility] [address] [place], [place], [address] THYROID STIM HORMONE Collected: 12/21/2017 Status: F Source: [place] (TSH) 12:03 [facility] [place] REPOS[facility] TYPE CODE TESTS RESULT OUT OF RANGE REFERENCE UNITS LAB L501.9520 0.358-3.74 uIU/mL High TSH 4.46 Performed By: #### L500.4050, L501.1400, L501.9520 #### [facility] [address] [place], [place], [address] VITAMIN D,25 HYDROXY Collected: 12/21/2017 Status: F Source: [place] 12:03 PM [facility] [place] [facility] TYPE CODE TESTS RESULT OUT OF REFERENCE UNITS RANGE LAB L506.1000 29.95-100.01 ng/mL Low Vitamin D 28.0 25-[place] Result Comment: Vitamin D 25(OH) Status Range Deficiency <20 ng/mL (50nmol/L) Insuffciency 20 - 30 ng/mL (50 - 75 nmol/L) Sufficiency 30 - 100 ng/mL (75 - 250 nmol/L) Toxicity >100 ng/mL (>250 nmol/L) Performed By: #### L506.1000 #### [facility] [address] [place], [address] SURGERY VISIT REPORT Observed: 12/11/2017 Status: F Source: [place] 2:26 PM [facility] [place] [facility] [address] [place] [address] OFFICE VISIT Date of Service: 12/11/17 MR#: [id number] Acct: [id number] Name: ARIANNA GUILLERMO Rep #: [id number] : 1940 Provider: Jaylin New PA-C Age/Sex: 77/M Location: [facility] Status: Signed Intake Intake Visit Reasons: Suture Removal Fistula 12/04 RC Chief Complaint: post fistulogram Transfer Table Operator Helper Required: No Is patient in pain?: No [...] PO DAILY tab 09/13/17 [History Confirmed 12/11/17] PFS Medical History Fatigue (Chronic) Abnormal electrocardiogram (Chronic) Long-term use of high-risk medication (Chronic) BMI 40.0-44.9, adult (Chronic) Chest pain on exertion (Chronic) Angina pectoris (Chronic) Pulmonary hypertension (Chronic) ALY (obstructive sleep apnea) (Chronic) Abnormal nuclear stress test (Chronic) Diastolic heart failure (Chronic) Sinus bradycardia (Chronic) 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 (Chronic) Shortness of breath (Chronic) 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 Dr. Lang is his assurance auditor. Exam Const General: cooperative, healthy appearing, comfortable, [...] OPERATIVE REPORT Observed: 12/05/2017 Status: F Source: [place] 6:18 AM [facility] [place] [facility] Medical Records Department [address] [place] [address] [place] [address] Operative Report 12/04/17 1220 MR#: [id number] Acct: [id number] Name: ARIANNA GUILLERMO Rep #: [id number] : 1940 77 From: Liam Brown MD PCP: Nicolas OHWE,Justice García Status: REG SD Y Location: [facility] Problem List (1) Problem [...] Micropuncture needle inserted. Micropuncture wire inserted. 6 British short sheath dilator inserted. Using an angled Glidewire and 4 British angled glide cath [place] was gained to the radial artery proximal [...] 11/13/2017 Status: F Source: [place] 1:29 PM [facility] [place] [facility] TYPE CODE TESTS RESULT OUT OF [...] CO2 28.0 Performed By: #### L500.3600 #### [facility] [address] [facility] [place], [place], [address] CBC-COMPLETE BLOOD CNT Collected: 11/13/2017 Status: F Source: [place] NO DIFF 1:29 PM [facility] [place] [facility] TYPE CODE TESTS RESULT OUT OF [...] MPV 11.2 Performed By: #### L100.0500 #### [facility] [address] [facility] [address] [facility] [place], [place], [address] VITAMIN D,25 HYDROXY Collected: 11/13/2017 Status: F Source: [place] 1:29 PM [facility] [place] [facility] TYPE CODE TESTS RESULT OUT OF RANGE REFERENCE UNITS LAB L506.1000 29.95-100.01 ng/mL Normal Vitamin D 33.1 25-[place] Result Comment: Vitamin D 25(OH) Status Range Deficiency <20 ng/mL (50nmol/L) Insuffciency 20 - 30 ng/mL (50 - 75 nmol/L) Sufficiency 30 - 100 ng/mL (75 - 250 nmol/L) Toxicity >100 ng/mL (>250 nmol/L) Performed By: #### L506.1000 #### [facility] [address] [place], [address] PTHIN Collected: 11/13/2017 Status: F Source: [place] 1:29 PM [facility] [place] TYPE CODE TESTS RESULT OUT OF RANGE REFERENCE UNITS LAB L509.1000 18.4-80.1 pg/mL High PTHIN 205.2 Performed By: #### L509.1000 #### [facility] [address] [place], [address] SURGERY VISIT REPORT Observed: 11/13/2017 Status: F Source: [place] 9:57 AM [facility] [address] [place] [address] OFFICE VISIT Date of Service: 11/12/17 MR#: [id number] Acct: [id number] Name: ARIANNA GUILLERMO Rep #: [id number] : 1940 Provider: Jaylin New PA-C Age/Sex: 77/M Location: [facility] Status: Signed Intake Vital Signs11/12/17 Height 5 ft 7 in 11/12/17 Weight: 264 lb Intake Visit Reasons: F/U RC 07/27 Fistulagram Chief Complaint: post fistulogram Transfer Table Operator Helper Required: No Is patient in pain?: No [...] PO DAILY tab 09/13/17 [History Confirmed 11/12/17] [facility] Medical History Fatigue (Chronic) Abnormal electrocardiogram (Chronic) Long-term use of high-risk medication (Chronic) BMI 40.0-44.9, adult (Chronic) Chest pain on exertion (Chronic) Angina pectoris (Chronic) Pulmonary hypertension (Chronic) ALY (obstructive sleep apnea) (Chronic) Abnormal nuclear stress test (Chronic) Diastolic heart failure (Chronic) Sinus bradycardia (Chronic) 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 (Chronic) Shortness of breath (Chronic) 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 (Acute) Hypertension (Chronic) [...] on dialysis currently. Dr. Lang is his assurance auditor. Patient has a transposition left forearm cephalic [...] cooperative, healthy appearing, comfortable, no acute distress HENNM Head: normal to inspection Eyes General: appearance [...] 1. Problem with dialysis access, initial encounter T82.361D Plan Dr. Brown will plan to perform a left forearm AV fistulogram with possible intervention. Procedure details, risks and benefits have been explained to the patient. Patient has had the opportunity to ask and have questions answered. Patient verbally understands and agrees with the plan. Coding Level of Care Code Off vis,est,level 3 Diagnoses Problem with dialysis access, initial encounter T82.422E Encounter type: initial encounter 11/13/17 0957 <Electronically signed by Jaylin New PA-C> Date Jaylin New PA-C Cosigner Signature: Date (if applicable) CC: Luann Lang DO INITAL EVALUATION (1) Observed: 09/20/2017 Status: F Source: [place] - PT 9:20 AM [facility] [place] [facility] [address] [place] [address]. [address] [place] [address] Fax REHABILITATION SERVICES INITIAL EVALUATION MR#: [id number] Acct: [id number] Name: ARIANNA GUILLERMO Rep #: [id number] : 1940 77 From: Barry Roche PT, Cert. MDT, OCS Referring Dr.: Justice Britt MD Status: REG RCR Insurance: MEDICARE PART A B ANTHEM Patient's Visit Information ARIANNA GUILLERMO is a [...] to be FAXED BACK to us at [phone] for Medicare purposes. Please let me know if there are questions or concerns regarding this plan of care. Physician Signature: Date: <Electronically signed by Barry Roche PT, Cert. T, OCS> 09/20/17919 CC: Justice Britt MD LEO Signed For Medicare only, by signing this I certify the plan of care. Physicians Signature Date SERUM CREATININE AND Collected: 09/14/2017 Status: F Source: [place] GFR 11:50 AM [facility] [place] [facility] TYPE CODE TESTS RESULT OUT OF [...] GFR Calc Performed By: #### L501.1105 #### [facility] [address] [place], [address] PROTEIN, URINE 24HR Collected: 09/14/2017 Status: F Source: [place] 11:50 AM [facility] [place] [facility] TYPE CODE TESTS RESULT OUT OF RANGE REFERENCE UNITS LAB L501.1850 24.0 HOURS Normal UR COLLECT 24.0 TIME LAB L501.1875 mL Normal UR TOTAL 1400 VOLUME LAB L501.1900 <11.9 mg/dL High URINE PROTEIN 67.9 LAB L501.1925 <150 MG/24HR mg/24HR High 24hr UR 950.6 PROTEIN Performed By: #### L500.9000 #### [facility] [address] [place], [address] 24 HR UR CREATININE Collected: 09/14/2017 Status: F Source: [place] CLEARANCE 11:50 AM [facility] [place] [facility] TYPE CODE TESTS RESULT OUT OF [...] CLEARANCE 22 Performed By: #### L500.4507 #### [facility] [address] [place], [address] HIP 2-3 VIEWS WITH Observed: 09/11/2017 Status: F Source: [place] PELVIS 3:36 PM [facility] [facility] Imaging Services [address] [place] [address] Hip 2-3 Views with Pelvis MR#: [id number] Acct: [id number] Name: ARIANNA GUILLERMO Rep #: [id number] : 1940 M 77 From: Juan Jose Dewitt MD PCP: Nicolas HOWE,Justice Chi Status: REG CLI Study: Hip 2-3 Views with Pelvis Date of Exam: 09/11/17 Exam# [id number] Ordering Dr: Justice Britt MD STUDY: X-RAY [...] Service support , CC: Justice Britt MD Intensive [facility] Ambulance Paramedic: Signed CBC W/DIFF, AUTOMATED Collected: 09/11/2017 Status: F Source: [place] 1:34 PM [facility] Order Comment: DR BRITT ORDERED VITD [...] Lymph 1.11 Performed By: #### L100.0100 #### [facility] [address] [place] [address]. [place], [place], [address] COMPREHENSIVE METABOLIC Collected: 09/11/2017 Status: F [facility] Order Comment: DR BRITT ORDERED VITD [...] By: #### L500.4050, L501.1400, L501.2300, L501.9520 #### [facility] [address] [facility] [place], [address] URIC ACID Collected: 09/11/2017 Status: F Source: [place] 1:34 PM [facility] Order Comment: DR BRITT ORDERED VITD CMP URIC ACID TSH CBCD DR LANG ORDERED RENAL CBC PTH TYPE CODE TESTS RESULT OUT OF RANGE REFERENCE UNITS LAB L501.1400 3.5-7.2 mg/dL Normal URIC 3.8 Result Comment: The drugs N-Acetylcysteine and Metamizole may falsely depress this assay. Performed By: #### L500.4050, L501.1400, L501.2300, L501.9520 #### [facility] [address] [place], [place], [address] PHOSPHORUS Collected: 09/11/2017 Status: F Source: [place] 1:34 PM [facility] Order Comment: DR BRITT ORDERED VITD CMP URIC ACID TSH CBCD DR LANG ORDERED RENAL CBC PTH TYPE CODE TESTS RESULT OUT OF RANGE REFERENCE UNITS LAB L501.2300 2.5-4.9 mg/dL Normal PHOS 3.0 Performed By: #### L500.4050, L501.1400, L501.2300, L501.9520 #### [facility] [address] [place], [address] THYROID STIM HORMONE Collected: 09/11/2017 Status: F Source: [place] (TSH) 1:34 PM [facility] [place] [facility] Order Comment: DR BRITT ORDERED VITD CMP URIC ACID TSH CBCD DR LANG ORDERED RENAL CBC PTH TYPE CODE TESTS RESULT OUT OF RANGE REFERENCE UNITS LAB L501.9520 0.358-3.74 uIU/mL Normal TSH 2.90 Performed By: #### L500.4050, L501.1400, L501.2300, L501.9520 #### [facility] [address] [place], [address] PTHIN Collected: 09/11/2017 Status: F Source: [place] 1:34 PM [facility] Order Comment: DR BRITT ORDERED VITD CMP URIC ACID TSH CBCD DR LANG ORDERED RENAL CBC PTH TYPE CODE TESTS RESULT OUT OF RANGE REFERENCE UNITS LAB L509.1000 18.4-80.1 pg/mL High PTHIN 182.1 Performed By: #### L509.1000 #### [facility] [address] [place], [address] VITAMIN D,25 HYDROXY Collected: 09/11/2017 Status: F Source: [place] 1:34 PM [facility] Order Comment: DR BRITT ORDERED VITD [...] (>250 nmol/L) Performed By: #### L506.1000 #### [facility] [address] [place], [address] SURGERY VISIT REPORT Observed: 08/30/2017 Status: F Source: [place] 1:45 PM [facility] [address] [place] [address] OFFICE VISIT Date of Service: 08/30/17 MR#: [id number] Acct: [id number] Name: ARIANNA GUILLERMO Rep #: [id number] : 1940 Provider: Jaylin New PA-C Age/Sex: 77/M Location: [facility] Status: Signed Intake Intake Visit Reasons: F/U RC 07/27 FISTULAGRAM Chief Complaint: post fistulogram Transfer Table Operator Helper Required: No Is patient in pain?: No [...] [History Confirmed 08/30/17] Fluticasone 0.05% [Flonase Nasal Bucklin] 1 spray NASAL DAILY PRN 05/07/17 [History [...] INHALATION Q8H PRN 08/30/17 [History Confirmed 08/30/17] [facility] Medical History Fatigue (Chronic) Abnormal electrocardiogram (Chronic) Long-term use of high-risk medication (Chronic) BMI 40.0-44.9, adult (Chronic) Chest pain on exertion (Chronic) Angina pectoris (Chronic) Pulmonary hypertension (Chronic) ALY (obstructive sleep apnea) (Chronic) Abnormal nuclear stress test (Chronic) Diastolic heart failure (Chronic) Sinus bradycardia (Chronic) 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 (Chronic) Shortness of breath (Chronic) 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 (Acute) Hypertension (Chronic) [...] on dialysis currently. Dr. Lang is his assurance auditor. Patient has a transposition left forearm cephalic [...] DUPLEX LOWER Observed: 08/27/2017 Status: F Source: [place]A EXTREMITY 10:05 PM [facility] Cardiovascular Services [address] [address] Venous Duplex US - Rambo Extrem 08/27/17 1554 MR#: [id number] Acct: [id number] Name: ARIANNA GUILLERMO Rep #: [id number] : 1940 77 From: Pravin Akers MD Attending Dr: Nicolas HOWE,Justice García Status: REG CLI Ordering Dr: Justice Britt MD Date: 08/27/17 Location: CVS Sex: M C Admitted: Reason [...] to DR. Britt @ 4:20 pm @ [phone]. Interpretation Summary Deep veins of the lower [...] Justice Britt Chi Performed By: Amanda Carbajal, RDCS, RVT 08/27/172203 Date Pravin Akers MD CC: Justice Britt MD Date Dictated: 08/27/17 155 Date Transcribed: 08/27/172203 Intensive Care Ambulance Paramedic: Signed ABDOMEN SINGLE VIEW Observed: 08/27/2017 Status: F Source: [place] 3:34 PM [facility] Imaging Services [address] [place] [address] Abdomen Single View MR#: [id number] Acct: [id number] Name: ARIANNA GUILLERMO Rep #: [id number] : 1940 M 77 From: Karthikeyan Pacheco MD PCP: Justice Britt MD, Chi Status: REG CLI Study: Abdomen Single View Date of Exam: 08/27/17 Exam# [id number] Ordering Dr: Justice Britt MD STUDY: X-RAY [...] IMPRESSION: No bowel obstruction. Electronically Signed: Karthikeyan Pacheco, at 16:03 EDT Tel , Service support , CC: Justice Britt MD Intensive Care Ambulance Paramedic: Signed BASIC METABOLIC Collected: 08/27/2017 Status: F Source: [place] PROFILE (BMP) 3:13 PM [facility] TYPE CODE TESTS RESULT OUT OF [...] GAP 8 Performed By: #### L500.2500 #### [facility] [address] [place], [place], [address] CBC W/DIFF, AUTOMATED Collected: 08/27/2017 Status: F Source: [place] 3:13 PM [facility] TYPE CODE TESTS RESULT OUT OF [...] Lymph 1.33 Performed By: #### L100.0100 #### [facility] [address] [place] [address]. [place], [place], [address] SURGERY VISIT REPORT Observed: 08/02/2017 Status: F Source: [place] 1:55 PM [facility] [address] [place], [place] [address] OFFICE VISIT Date of Service: 08/02/17 MR#: [id number] Acct: [id number] Name: ARIANNA GUILLERMO Rep #: [id number] : 1940 Provider: Jaylin New PA-C Age/Sex: 76/M Location: [facility] Status: Signed Intake Intake Visit Reasons: F/U RC 07/27 FISTULA GRAM AND SUTURE REMOVAL Chief Complaint: post fistulogram Transfer Table Operator Helper Required: No Is patient in pain?: No [...] [History Confirmed 07/26/17] Fluticasone 0.05% [Flonase Nasal Bucklin] 1 spray NASAL DAILY PRN 05/07/17 [History [...] Confirmed 07/26/17] [facility] Medical History 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 (Acute) Hypertension (Chronic) [...] created arteriovenous shunt for hemodialysis Z99.2 08/02/17 0839 <Electronically signed by Jaylin New PA-C> Date Jaylin Virgen GORMAN Cosigner Signature: Date (if applicable) CC: OPERATIVE REPORT Observed: 07/27/2017 Status: F Source: [place] 12:14 PM [facility] [place] Medical Records Department [address] [place] [address] Operative Report 07/27/17 1210 MR#: [id number] Acct: [id number] Name: ARIANNA GUILLERMO Rep #: [id number] : 1940 76 From: Liam Brown MD PCP: Nicolas HOWE,Justice García Status: REG [facility] Location: [facility] Problem List (1) Presence [...] advance the micropuncture wire then up 6 British short sheath dilator. Using then a 4 British angled glide cath and an 035 angled Glidewire and gained access to the radial artery proximal to the anastomosis. I advanced a 4 British angled glide cath. Using carbon dioxide obtained [...] I removed the balloon reinserted the 4 British angled glide cath reobtained official gram of [...] MD Signed Observed: 07/24/2017 Status: F Source: [place] RESPIRATORY PANEL 2:13 PM [facility] RP PANEL Normal Reference Range = Not Detected Copy of report sent to Infection Control Printer [id number] 07/25/17 2136 StartSpanish. RESULTS CALLED TO /NURSE LINE 07/25/17 5903 Francy Greer. ADENOVIRUS Not Detected HUMAN METAPHNEUMO [...] HUMAN META Performed By: #### M100.638 #### [facility] [address] [place], [place], [address] CBC-COMPLETE BLOOD CNT Collected: 07/16/2017 Status: F Source: [place] NO DIFF 1:43 PM [facility] TYPE CODE TESTS RESULT OUT OF [...] MPV 10.7 Performed By: #### L100.0500 #### [facility] [address] [place], [place], [address] BASIC METABOLIC Collected: 07/16/2017 Status: F Source: [place] PROFILE (BMP) 1:43 PM [facility] TYPE CODE TESTS RESULT OUT OF [...] GAP 8 Performed By: #### L500.2500 #### [facility] [address] [place], [address] SURGERY VISIT REPORT Observed: 07/10/2017 Status: F Source: [place] 2:28 PM [facility] [address] [place] [address] OFFICE VISIT Date of Service: 07/10/17 MR#: [id number] Acct: [id number] Name: ARIANNA GUILLERMO Rep #: [id number] : 1940 Provider: Jaylin New PA-C Age/Sex: 76/M Location: [facility] Status: Signed Intake Vital Signs07/10/17 Height 5 ft 7 in 07/10/17 Weight: 300 lb 07/10/17 Body Mass Index (BMI) 47.0 Intake Visit Reasons: 2 weeks post op Transfer Table Operator Helper Required: No Is patient in pain?: No [...] [History Confirmed 07/10/17] Fluticasone 0.05% [Flonase Nasal Bucklin] 1 spray NASAL DAILY PRN 05/07/17 [History [...] Confirmed 07/10/17] [facility] Medical History 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 Dr. Lang is his assurance auditor. He will follow-up with Dr. Lang next [...] 1. Problem with dialysis access, initial encounter T82.827N Plan - Dr. Brown will plan to [...] Diagnoses Problem with dialysis access, initial encounter T82.163K Encounter type: initial encounter 07/10/17 1428 <Electronically signed by aJylin New PA-C> Date Jaylin New PA-C Cosigner Signature: Date (if applicable) CC: VENOUS DUPLEX UPPER Observed: 06/29/2017 Status: F Source: [place] EXTREMITY 9:37 PM [facility] [place] [facility] Cardiovascular Services [facility] [place] [address] Venous Duplex US - Rambo Extrem 06/29/17 1028 MR#: [id number] Acct: [id number] Name: ARIANNA GUILLERMO Rep #: [id number] : 1940 76 From: Pravin Akers MD Attending Dr: Nicolas HOWE,Justice García Status: REG CLI Ordering Dr: Justice Britt MD Date: 06/29/17 Location: CVS Sex: M C Admitted: Reason [...] Date Dictated: 06/29/17 1028 Date Transcribed: 06/29/172135 Intensive Care Ambulance Paramedic: Signed THORACIC SPINE 3 Observed: 06/28/2017 Status: F Source: [place] VIEWS 5:12 PM [facility] [place] Imaging Services [address] [place] [address] Thoracic Spine 3 Views MR#: [id number] Acct: [id number] Name: ARIANNA GUILLERMO Rep #: [id number] : 1940 M 76 From: Danie Vergara DO PCP: Justice Britt MD, Chi Status: REG CLI Study: Thoracic Spine 3 Views Date of Exam: 06/28/17 Exam# [id number] Ordering Dr: Justice Britt MD STUDY: X-RAY [...] Danie Vergara DO at 18:14 EST Tel [phone], Service support , CC: Justice Britt MD Intensive Care Ambulance Paramedic: Signed CBC W/DIFF, AUTOMATED Collected: 06/28/2017 Status: F Source: [place] 4:22 PM [facility] TYPE CODE TESTS RESULT OUT OF [...] Lymph 1.40 Performed By: #### L100.0100 #### [facility] [address] [place], [address] BASIC METABOLIC Collected: 06/28/2017 Status: F Source: [place] PROFILE (BMP) 4:22 PM [facility] TYPE CODE TESTS RESULT OUT OF [...] 9 GAP Performed By: #### L500.2500 #### [facility] [address] [place], [address] RIBS UNI MIN 3V Observed: 06/25/2017 Status: F Source: [place] W/PA CHEST 10:37 AM [facility] [place] [facility] Imaging Services [address] [place] [address] Ribs Uni Min 3V w/PA Chest MR#: [id number] Acct: [id number] Name: ARIANNA GUILLERMO Rep #: [id number] : 1940 M 76 From: Seng Verde MD PCP: Nicolas HOWE,Justice Chi Status: REG CLI Study: Ribs Uni Min 3V w/PA Chest Date of Exam: 06/25/17 Exam# [id number] Ordering Dr: Justice Britt MD STUDY: X-RAY [...] No acute chest disease. Electronically Signed: Seng Vedre MD at 23:55 EST , Service support , CC: Justice Britt MD Intensive Care Ambulance Paramedic: Signed SURGERY VISIT REPORT Observed: 06/19/2017 Status: F Source: [place] 4:31 PM [facility] [address] [place] [address] [place] [address] OFFICE VISIT Date of Service: 06/19/17 MR#: [id number] Acct: [id number] Name: ARIANNA GUILLERMO Rep #: [id number] : 1940 Provider: Jaylin New PA-C Age/Sex: 76/M Location: [facility] Status: Signed Intake Intake Visit Reasons: F/U FISTULA/ARM SWELLING Transfer Table Operator Helper Required: No Is patient in pain?: No [...] [History Confirmed 06/19/17] Fluticasone 0.05% [Flonase Nasal Bucklin] 1 spray NASAL DAILY PRN 05/07/17 [History [...] DAILY #90 tab 06/12/17 [Rx Confirmed 06/19/17] [facility] Medical History 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 Patient notes he does not return [...] F Source: [place] PROFILE (BMP) 10:43 AM [facility] TYPE CODE TESTS RESULT OUT OF [...] GAP 7 Performed By: #### L500.2500 #### [facility] [address] [place], [address] Observed: 06/14/2017 Status: F Source: [place] RESPIRATORY PANEL 12:25 PM [facility] Copy of report sent to Infection Control Printer [id number] 06/15/17 0632 LSHOBE. RP PANEL Normal Reference Range = Not Detected RESULTS CALLED TO DR BRITT NURSE LINE 06/15/17 2626 Casie Chawla. REPORT READ BACK BY VOICE [...] INFLUENZAE B Performed By: #### M100.638 #### [facility] [address] [place], [address] CBC W/DIFF, AUTOMATED Collected: 06/11/2017 Status: F Source: [place] 4:23 PM [facility] TYPE CODE TESTS RESULT OUT OF [...] Lymph 1.36 Performed By: #### L100.0100 #### [facility] [address] [place], [address] COMPREHENSIVE METABOLIC Collected: 06/11/2017 Status: F Source: [facility] 4:23 PM [facility] TYPE CODE TESTS RESULT OUT OF [...] Performed By: #### L500.4050, L501.1400, L501.9520 #### [facility] [address] [place], [place], [address] URIC ACID Collected: 06/11/2017 Status: F Source: [place] 4:23 PM [facility] TYPE CODE TESTS RESULT OUT OF RANGE REFERENCE UNITS LAB L501.1400 3.5-7.2 mg/dL Normal URIC 3.7 Result Comment: The drugs N-Acetylcysteine and Metamizole may falsely depress this assay. Performed By: #### L500.4050, L501.1400, L501.9520 #### [facility] [address] [place], [place], [address] THYROID STIM HORMONE Collected: 06/11/2017 Status: F Source: [place] (TSH) 4:23 PM [facility] TYPE CODE TESTS RESULT OUT OF RANGE REFERENCE UNITS LAB L501.9520 0.358-3.74 uIU/mL Normal TSH 1.63 Performed By: #### L500.4050, L501.1400, L501.9520 #### [facility] [address] [place], [place], [address] CBC W/DIFF, AUTOMATED Collected: 06/07/2017 Status: F Source: [place] 5:44 PM [facility] TYPE CODE TESTS RESULT OUT OF [...] Lymph 1.04 Performed By: #### L100.0100 #### [facility] [address] [place], [place], [address] D-DIMER QUANTITATIVE Collected: 06/07/2017 Status: F Source: [place] (DVT/PE) 5:44 PM [facility] TYPE CODE TESTS RESULT OUT OF RANGE REFERENCE UNITS LAB L300.8000 0.27-0.49 FEU/ug/m High alert D-DIMER 1.38 QUANT Result Comment: RESULTS CALLED TO 06/07/17 1840 Shankar Pulido. REPORT READ BACK BY SAME . D-Dimer ELEVATED (>0.49): Additional studies and clinical assessments are indicated to conclude diagnosis of: Deep Vein Thrombosis (DVT) or Pulmonary Embolism (PE) Performed By: #### L300.8000 #### [facility] [place], [address] COMPREHENSIVE METABOLIC Collected: 06/07/2017 Status: F Source: [facility] 5:44 PM [facility] TYPE CODE TESTS RESULT OUT OF [...] By: #### L500.4050, L501.2300, L501.5200, L501.9520 #### [facility] [address] [place], [place], [address] PHOSPHORUS Collected: 06/07/2017 Status: F Source: [place] 5:44 PM [facility] TYPE CODE TESTS RESULT OUT OF RANGE REFERENCE UNITS LAB L501.2300 2.5-4.9 mg/dL Normal PHOS 3.8 Performed By: #### L500.4050, L501.2300, L501.5200, L501.9520 #### [facility] [address] [place], [place], [address] MAGNESIUM Collected: 06/07/2017 Status: F Source: [place] 5:44 PM [facility] TYPE CODE TESTS RESULT OUT OF RANGE REFERENCE UNITS LAB L501.5200 1.6-2.6 mg/dL Normal MG 2.4 Result Comment: Please note revised Magnesium reference range effective 2017. Performed By: #### L500.4050, L501.2300, L501.5200, L501.9520 #### [facility] [address] [place], [place], [address] THYROID STIM HORMONE Collected: 06/07/2017 Status: F Source: [place] (TSH) 5:44 PM [facility] TYPE CODE TESTS RESULT OUT OF RANGE REFERENCE UNITS LAB L501.9520 0.358-3.74 uIU/mL Normal TSH 2.14 Performed By: #### L500.4050, L501.2300, L501.5200, L501.9520 #### [facility] [address] [place], [address] BNP,B-TYPE NATRIURETIC Collected: 06/07/2017 Status: F Source: [place] PEPTIDE 5:44 PM [facility] TYPE CODE TESTS RESULT OUT OF RANGE REFERENCE UNITS LAB L503.6620 0-100 pg/mL High B-TYPE 254.3 SERINA PEP Performed By: #### L503.6620 #### [facility] [address] [place], [address] Observed: 06/07/2017 Status: F Source: [place] CULTURE, URINE 5:44 PM [facility] Urine Culture ORGANISM 1: Enterococcus faecalis [place] Count 11,000-25,000 Enterococcus faecalis: REACTION Ampicillin $ <=2 S Benzylpenicillin NF 8 S Ciprofloxacin $ >=8 R Gentamicin SYN-R R Levofloxacin $ >=8 R Linezolid $$$$ 1 S Nitrofurantoin $ <=16 S Streptomycin $ SYN-S S Tetracycline NF >=16 R Vancomycin $ 1 S (NF) indicates non-formulary drug at [facility]. Approval by Infectious Disease Specialist required before non-formulary drugs may be ordered and/or dispensed. * CLSI guidelines does not recommend testing of cephalosporins. This interpretation is deduced from Beta-lactam/penicillin results. Performed By: #### M100.0650 #### [facility] [address] [place], [address] ABD INC DECUB Observed: 06/07/2017 Status: F Source: [place] AND/OR ERECT 5:21 PM [facility] Imaging Services [address] [place] [place] [address] Abd Inc Decub and/or Erect MR#: [id number] Acct: [id number] Name: ARIANNA GUILLERMO Rep #: [id number] : 1940 M 76 From: Jane Strickland MD PCP: Nicolas HOWE,Justice García Status: REG CLI Study: Abd Inc Decub and/or Erect Date of Exam: 06/07/17 Exam# [id number] Ordering Dr: Justice Britt MD STUDY: X-RAY [...] Service support , CC: Justice Britt MD Intensive Care Ambulance Paramedic: Signed CHEST PA AND LATERAL Observed: 06/07/2017 Status: F Source: [place] 5:21 PM [facility] Imaging Services [address] [place] [address] Chest PA and Lateral MR#: [id number] Acct: [id number] Name: ARIANNA GUILLERMO Rep #: [id number] : 1940 76 From: Jane Strickland MD PCP: Justice Britt MD, Chi Status: REG CLI Study: Chest PA and Lateral Date of Exam: 06/07/17 Exam# [id number] Ordering Dr: Justice Britt MD STUDY: X-RAY [...] of edema, pneumonia and/or atelectasis. Electronically Signed: Jane Strickland MD at 18:17 EST Tel , Service support , CC: Justice Britt MD Intensive Care Ambulance Paramedic: Signed BRAIN/HEAD WITHOUT Observed: 06/07/2017 Status: F Source: [place] CONTRAST 5:16 PM [facility] Imaging Services [address] [place] [address] Brain/Head without Contrast MR#: [id number] Acct: [id number] Name: ARIANNA GUILLERMO Rep #: [id number] : 1940 76 From: Danie Vergara PCP: Justice Britt MD, Chi Status: REG CLI Study: Brain/Head without Contrast Date of Exam: 06/07/17 Exam# [id number] Ordering Dr: Justice Britt MD STUDY: CT [...] Danie Vergara DO at 17:42 EST Tel [phone], Service support , CC: Justice Britt MD Intensive Care Ambulance Paramedic: Signed SURGERY VISIT REPORT Observed: 06/05/2017 Status: F Source: [place] 1:41 PM [facility] [address] [place] [address] [place] [address] OFFICE VISIT Date of Service: 06/05/17 MR#: [id number] Acct: [id number] Name: ARIANNA GUILLERMO Rep #: [id number] : 1940 Provider: Jaylin New PA-C Age/Sex: 76/M Location: [facility] Status: Signed Intake Intake Visit Reasons: F/U FISTULA/ARM SWELLING Transfer Table Operator Helper Required: No Is patient in pain?: No [...] [History Confirmed 06/05/17] Fluticasone 0.05% [Flonase Nasal Bucklin] 1 spray NASAL DAILY PRN 05/07/17 [History [...] PO QDAY cap 05/09/17 [History Confirmed 06/05/17] [facility] Medical History 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 Exam Extrem Other: left forearm [...] DUPLEX LOWER Observed: 05/31/2017 Status: F Source: [place] EXTREMITY 5:33 PM [facility] Cardiovascular Services [address] [address] Venous Duplex US - Rambo Extrem 05/31/17 1329 MR#: [id number] Acct: [id number] Name: ARIANNA GUILLERMO Rep #: [id number] : 1940 76 From: Pravin Akers MD Attending Dr: Nicolas HOWE,uJstice García Status: REG CLI Ordering Dr: Justice [...] Ordering Physician: Justice Britt Performed By: Obi Valentin, RVT 05/31/17 173 Date Pravin Akers MD CC: Justice Britt MD Date Dictated: 05/31/17 1329 Date Transcribed: 05/31/171732 Intensive Care Ambulance Paramedic: Signed CBC W/DIFF, AUTOMATED Collected: 05/31/2017 Status: F Source: [place] 9:08 AM [facility] TYPE CODE TESTS RESULT OUT OF [...] Lymph 1.39 Performed By: #### L100.0100 #### [facility] [address] [place], [place], [address] BASIC METABOLIC Collected: 05/31/2017 Status: F Source: [place] PROFILE (BMP) 9:08 AM [facility] TYPE CODE TESTS RESULT OUT OF [...] GAP 11 Performed By: #### L500.2500 #### [facility] [address] [place], [place], [address] BNP,B-TYPE NATRIURETIC Collected: 05/31/2017 Status: F Source: [place] PEPTIDE 9:08 AM [facility] TYPE CODE TESTS RESULT OUT OF RANGE REFERENCE UNITS LAB L503.6620 0-100 pg/mL High B-TYPE 301.4 SERINA PEP Performed By: #### L503.6620 #### [facility] [address] [place], [address] EMERGENCY DEPARTMENT Observed: 05/27/2017 Status: F Source: [place] SUMMARY 7:11 AM [facility] Medical Records Department [address] [place] [address] Emergency Department Summary 05/27/17 0121 MR#: [id number] Acct: [id number] Name: ARIANNA GUILLERMO Rep #: [id number] : 1940 76 From: Uli Laguerre DO [...] heart failure This note was generated with Secur[employer]ation software. It may contain incorrect words, spelling, [...] problems, contact your Primary Care Provider. Call [employer] [facility] ([phone]) or report to the closest Emergency Room. Call 911 if necessary. 05/27/17 0711 <Electronically signed by Uli Laguerre DO> Date Uli Laguerre DO Cosigner Signature (If Indicated): Date CC: Justice Britt MD DISCHARGE INSTRUCTION Observed: 05/27/2017 Status: F Source: [place] 2:38 AM [facility] [place] [facility] Medical Records Department [address] [place] [address] Discharge Instruction 05/27/17 0236 MR#: [id number] Acct: [id number] Name: ARIANNA GUILLERMO Rep #: [id number] : 1940 76 From: Uli Laguerre DO [...] your Primary Care Provider. Call [facility] ([phone]) or report to the closest Emergency Room. Call 911 if necessary. 05/27/17 0238 <Electronically signed by Uli Laguerre DO> Date Uli Laguerre DO Cosigner Signature (If Indicated): Date CC: Justice Britt MD ELBOW MIN 3 VIEWS Observed: 05/27/2017 Status: F Source: [place] 1:21 AM [facility] [place] [facility] Imaging Services [address] [place] [place] [address] 26083 Elbow min 3 Views MR#: [id number] Acct: [id number] Name: ARIANNA GUILLERMO Rep #: [id number] : 1940 M 76 From: Gerber Dietz MD PCP: Justice Britt MD, Chi Status: REG ER Study: Elbow min 3 Views Date of Exam: 05/27/17 Exam# [id number] Ordering Dr: Uli Laguerre DO STUDY: X-RAY [...] CC: Uli Laguerre DO; Justice Britt MD Intensive Care Ambulance Paramedic: Signed CBC W/DIFF, AUTOMATED Collected: 05/27/2017 Status: F Source: [place] 12:40 AM [facility] [place] [facility] TYPE CODE TESTS RESULT OUT OF [...] 1.10 Performed By: #### L100.0100, L101.9900 #### [facility] [address] [place], [address] ERYTHROCYTE SED RATE Collected: 05/27/2017 Status: F Source: [place] 12:40 AM [facility] [place] [facility] TYPE CODE TESTS RESULT OUT OF RANGE REFERENCE UNITS LAB L102.0000 0-20 mm/hr High SED RATE 31 Performed By: #### L100.0100, L101.9900 #### [facility] [address] [place], [address] BASIC METABOLIC Collected: 05/27/2017 Status: F Source: [place] PROFILE (BMP) 12:40 AM [facility] [place] [facility] TYPE CODE TESTS RESULT OUT OF [...] GAP 10 Performed By: #### L500.2500 #### [facility] [address] [place], [address] ABDOMEN LIMITED Observed: 05/24/2017 Status: F Source: [place] 11:24 AM [facility] [place] [facility] Imaging Services [address] [place] [address] Abdomen Limited MR#: [id number] Acct: [id number] Name: ARIANNA GUILLERMO Rep #: [id number] : 1940 M 76 From: Jo Ann Wolfe MD PCP: Nicolas HOWE,Justice García Status: REG CLI Study: Abdomen Limited Date of Exam: 05/24/17 Exam# [id number] Ordering Dr: Justice Britt MD STUDY: SUPERFICIAL ULTRASOUND - RIGHT [...] Wolfe MD at 16:06 EST Tel Direct: [phone], Service support , CC: Justcie Britt MD Intensive Care Ambulance Paramedic: Signed ALLERGIES ALLERGIES DATE TYPE / CODE NAME / CODE REACTION SEVERITY SOURCE 04/19/2018 Drug doxazosin Hives Unknown [place] Allergy/416 mesylate/[id number] Formerly [facility] 875546([address]) Repository 04/19/2018 Drug fosinopril Hives Unknown [place] Allergy/416 sodium/[id number] Formerly [facility] 639839([facility] ED [facility]) Repository 04/19/2018 Drug JAMEEL Unknown Unknown [place] Allergy/416 Inhibitors/K49839 Community 180415([facility] 04/19/2018 Drug lisinopril/X43709 Hives Unknown [place] Allergy/416 0658(RXNORM) Community 661103([facility] ED CT) Repository 04/19/2018 Drug morphine/[id number] Other Unknown [place] Allergy/416 45(RXNORM) Community 196756([facility] ED CT) Repository 04/19/2018 Drug ibuprofen/K759920 Unknown Unknown [place] Allergy/416 377(RXNORM) [facility] 606980([facility] ED CT) Repository ENCOUNTERS ENCOUNTERS ADMIT/DISCHARGE ACCOUNT ADMITTING ENCOUNTER LOCATION SOURCE NUMBER CLASS 05/17/2018 [id number] Ambulatory [place] 3 [facility] Hospital ing:OLS.AVED Repository 05/13/2018 [id number] Ambulatory [place] 6 [facility] ing:OLS.AVEC Repository 05/03/2018 [id number] Ambulatory [place] 5 [facility] Hospital ing:LAB.FUTUR Repository E 05/02/2018 [id number] Ambulatory BMSBuilding:B [place] 4 [facility] Repository 05/02/2018 [id number] Ambulatory [place] 8 [facility] ing:POLAB3 Repository 05/02/2018 [id number] Ambulatory [place] 8 [facility] ing:OLS.AVED Repository 04/26/2018 [id number] Ambulatory [place] 1 [facility] ing:OLS.AVEC Repository 04/22/2018 [id number] Ambulatory [place] 7 [facility] Hospital ing:OLS.AVEC Repository 04/19/2018/ [id number] Ambulatory BMSBuilding:B [place] 8 1 [facility] Repository 04/12/2018 [id number] Ambulatory BMSBuilding:B [place] 8 MS.CF.[facility] Repository 04/12/2018/ [id number] Ambulatory [place] 8 3 [facility] Hospital ing:CLSP Repository 04/10/2018/ [id number] Ambulatory BMSBuilding:B [place] 8 9 MS.[facility] Hospital Repository 03/30/2018 [id number] Ambulatory [place] 0 [facility] ing:OLS.AVEC Repository 03/22/2018 [id number] Ambulatory [place] 7 [facility] ing:OLS.AVEC Repository 03/18/2018 [id number] Ambulatory [place] 1 [facility] ing:LAB.FUTUR Repository E 02/25/2018 [id number] Ambulatory [place] 9 [facility] ing:OLS.AVEC Repository 02/22/2018 [id number] Ambulatory [place] 1 [facility] ing:OLS.AVEB Repository 02/20/2018/ [id number] Ambulatory BMSBuilding:B [place] 8 7 [facility] Repository 02/20/2018 [id number] Ambulatory [place] 1 [facility] ing:OLS.AVEC Repository 02/12/2018/ [id number] Ambulatory BMSBuilding:B [place] 8 7 [facility] Repository 02/05/2018 [id number] Ambulatory [place] 4 [facility] ing:OLS.AVEC Repository 01/30/2018 [id number] Ambulatory [place] 9 [facility] ing:OLS.AVED Repository 01/17/2018 [id number] Ambulatory BMSBuilding:B [place] 0 [facility] Hospital Repository 01/17/2018 [id number] Ambulatory [place] 7 [facility] ing:LAB.FUTUR Repository E 01/10/2018 [id number] Ambulatory [place] 4 [facility] ing:POLAB3 Repository 12/21/2017 [id number] Ambulatory [place] 2 [facility] ing:POLAB3 Repository 12/11/2017/ [id number] Ambulatory BMSBuilding:B [place] 8 5 MS.[facility] Hospital Repository 12/04/2017/ [id number] Ambulatory [place] 8 7 [facility] ing:CLSP Repository 12/04/2017 [id number] Ambulatory BMSBuilding:B [place] 7 MS.CF.[facility] Hospital Repository 12/04/2017 [id number] Ambulatory [place] 6 [facility] ing:LAB.FUTUR Repository E 11/13/2017 [id number] Ambulatory [place] 7 [facility] ing:POLAB3 Repository 11/12/2017/ [id number] Ambulatory BMSBuilding:B [place] 8 7 MS.[facility] Hospital Repository 11/08/2017 [id number] Ambulatory BMSBuilding:B [place] 0 MS.[facility] Hospital Repository 09/20/2017/ [id number] Ambulatory [place] 8 0 [facility] ing:PT Repository 09/14/2017 [id number] Ambulatory [place] 2 [facility] ing:POLAB3 Repository 09/13/2017 [id number] Ambulatory BMSBuilding:B [place] 1 [facility] Hospital Repository 09/11/2017 [id number] Ambulatory [place] 2 [facility] ing:RAD Repository 08/30/2017/ [id number] Ambulatory BMSBuilding:B [place] 8 5 MS.[facility] Hospital Repository 08/27/2017 [id number] Ambulatory [place] 2 [facility] ing:CVS Repository 08/27/2017 [id number] Ambulatory [place] 4 [facility] ing:POLAB3 Repository 08/02/2017/ [id number] Ambulatory BMSBuilding:B [place] 8 5 MS.[facility] Hospital Repository 07/27/2017 [id number] Ambulatory [place] 9 [facility] ing:CLSP Repository 07/27/2017 [id number] Ambulatory BMSBuilding:B [place] 5 MS.CF.[facility] Hospital Repository 07/26/2017 [id number] Ambulatory [place] 6 [facility] ing:LAB.FUTUR Repository E 07/24/2017 [id number] Ambulatory [place] 9 [facility] ing:PSN Repository 07/23/2017 [id number] Ambulatory BMSBuilding:B [place] 0 [facility] Hospital Repository 07/10/2017/ [id number] Ambulatory BMSBuilding:B [place] 8 5 MS.[facility] Hospital Repository 07/02/2017 [id number] Ambulatory [place] 4 [facility] ing:LAB.FUTUR Repository E 06/29/2017 [id number] Ambulatory [place] 7 [facility] ing:CVS Repository 06/28/2017 [id number] Ambulatory [place] 5 [facility] ing:POLAB3 Repository 06/25/2017 [id number] Ambulatory [place] 2 [facility] ing:RAD Repository 06/19/2017/ [id number] Ambulatory BMSBuilding:B [place] 8 5 MS.[facility] Hospital Repository 06/18/2017 [id number] Ambulatory [place] 8 [facility] ing:LAB Repository 06/14/2017 [id number] Ambulatory [place] 4 [facility] ing:PSN Repository 06/11/2017 [id number] Ambulatory [place] 0 [facility] ing:POLAB3 Repository 06/07/2017 [id number] Ambulatory [place] 2 [facility] ing:CT Repository 06/05/2017/ [id number] Ambulatory BMSBuilding:B [place] 8 7 MS.[facility] Hospital Repository 05/31/2017 [id number] Ambulatory [place] 0 [facility] ing:CVS Repository 05/31/2017 [id number] Ambulatory [place] 3 [facility] ing:LAB.FUTUR Repository E 05/27/2017/ [id number] Emergency [place] 8 0 [facility] ing:ED Repository 05/24/2017 [id number] Ambulatory [place] 1 [facility] ing:US Repository PAYERS PAYERS ENCOUNTER GUARANTOR PAYER SUBSCRIBER SOURCE 05/17/2018 ARIANNA Wolf Primary NOT GIVENUNK [place] [id number] E. [facility] Effective Repository OF Date:2018-05-17 [place], [place] [address]Kew: (HP) 05/13/2018 ARIANNA L Primary NOT GIVENUNK [place] [id number] E. Insurance:SELF PAY [facility] RDAVENUE Number: Effective Repository OF Date:2018-05-13 [place], [place] [address]Yjc: (HP) 05/03/2018 ARIANNA L Primary ARIANNA L [place] [id number] Insurance:MEDICARE BALDNERDOB: [address] A [facility] [id number] Hospital , [place] [address]Zsc: Number: Repository [id number] () Date:2018-05-03 05/03/2018 Secondary ARIANNA L [place] Insurance:ANTHEMPolic BALDNERDOB: Community y Number: [id number] Hospital [id number] Repository Date:4225-30-75ZZ [address] [place] [address]PW: 05/03/2018 Tertiary NOT GIVENUNK [place] Insurance:SELF PAY [facility] Number: Effective Repository Date:2018-05-03 05/02/2018 ARIANNA L Primary ARIANNA L [place] BALDNERTHE Insurance:MEDICARE BALDNERDOB: [facility] [id number] Hospital [id number] E Number: Repository ANTELOPE [id number] [place] Date:2018-05-02 [place], [place] [address]Gdy: () 05/02/2018 Secondary ARIANNA L [place] Insurance:ANTHEMPolic BALDNERDOB: Community y Number: [id number] Hospital [id number] Repository Date:6633-15-21DZ [address] [place] [address] 09[address]QU: 05/02/2018 Tertiary NOT GIVENUNK [place] Insurance:SELF PAY [facility] Number: Effective Repository Date:2018-05-02 05/02/2018 ARIANNA L Primary ARIANNA L [place] BALDNERTHE Insurance:MEDICARE BALDNERDOB: [facility] [id number] Hospital [id number] E Number: Repository ANTELOPE [id number] [place] Date:2018-04-05 [place], [place] [address]Wrl: () 05/02/2018 Secondary ARIANNA L [place] Insurance:ANTHEMPolic BALDNERDOB: [facility] y Number: [id number] Hospital [id number] Repository Date:1492-64-46PR [address] [place] [address]83[address]HE: 05/02/2018 Tertiary NOT GIVENUNK [place] Insurance:SELF PAY [facility] Number: Effective Repository Date:2018-04-05 05/02/2018 ARIANNA L Primary ARIANNA L [place] [id number] E. Insurance:MEDICARE BALDNERDOB: [facility] [id number] Medical CenterNUE Number: Repository OF [id number] [facility], Date:2018-05-02 [place] [address]Fgn: () 05/02/2018 Secondary ARIANNA L [place] Insurance:ANTHEMPolic BALDNERDOB: Community y Number: [id number] Hospital [id number] Repository Date:0456-85-22WA [address] [place] [address]SH: 05/02/2018 Tertiary NOT GIVENUNK [place] Insurance:SELF PAY [facility] Hospital Number: Effective Repository Date:2018-05-02 04/26/2018 ARIANNA L Primary ARIANNA L [place] [id number] E. Insurance:MEDICARE BALDNERDOB: [facility] [id number] [facility]iatric CenterUE Number: Repository OF [id number] [facility], Date:2018-04-26 [place] [address]Kir: () 04/26/2018 Secondary ARIANNA L [place] Insurance:ANTHEMPolic BALDNERDOB: Community y Number: [id number] Hospital [id number] Repository Date:8282-31-33ES [address] [place] [address] 380[address]JD: 04/26/2018 Tertiary NOT GIVENUNK [place] Insurance:SELF PAY [facility] Number: Effective Repository Date:2018-04-26 04/22/2018 ARIANNA L Primary ARIANNA L [place] [id number] E. Insurance:MEDICARE BALDNERDOB: [facility] [id number] Jackson Memorial HospitalAVENUE Number: Repository [id number] [facility], Date:2018-04-22 [place] [address]Emj: () 04/22/2018 Secondary ARIANNA L [place] Insurance:ANTHEMPolic BALDNERDOB: Community y Number: [id number] Hospital [id number] Repository Date:2726-66-71XV [address] [place] [address]TR: 04/22/2018 Tertiary NOT GIVENUNK [place] Insurance:SELF PAY [facility] Number: Effective Repository Date:2018-04-22 04/19/2018 ARIANNA L Primary ARIANNA L [place] BALDNERTHE Insurance:MEDICARE BALDNERDOB: [facility] [id number]. Mary's Medical Center1700 E Number: Repository ANTELOPE [id number] [place] Date:2018-04-12 [place], [place] [address]Pth: () 04/19/2018 Secondary ARIANNA L [place] Insurance:ANTHEMPolic BALDNERDOB: Community y Number: [id number] Hospital [id number] Repository Date:3891-37-48EM [address] [place] [address]GC: 04/19/2018 Tertiary NOT GIVENUNK [place] Insurance:SELF PAY [facility] Number: Effective Repository Date:2018-04-18 04/12/2018 ARIANNA L Primary NOT GIVENUNK [place] BALDNERTHE Insurance:SELF PAY [place] [id number] E Number: Effective Repository ANTELOPE Date:2018-04-12 [place], [place] [address]Llx: () 04/12/2018 ARIANNA L Primary NOT GIVENUNK [place] BALDNERTHE Insurance:SELF PAY [place] [id number] E Number: Effective Repository AN[place]ELOPE Date:2018-04-10 [place], [place] [address]Agd: () 04/10/2018 ARIANNA L Primary ARIANNA L [place]HE Insurance:MEDICARE BALDNERDOB: [facility] [id number] [place] [address] [address] Number: Repository ANTELOPE [id number] [place] Date:2018-04-04 [place], [place] [address]Jfa: () 04/10/2018 Secondary ARIANNA L [place] Insurance:ANTHEMPolic BALDNERDOB: Community y Number: [id number] Hospital [id number] Repository Date:0999-81-99[address] [address]UJ: 04/10/2018 Tertiary NOT GIVENUNK [place] Insurance:SELF PAY [facility] Number: Effective Repository Date:2018-04-04 03/30/2018 ARIANNA L Primary ARIANNA L [place] [id number] E. Insurance:MEDICARE BALDNERDOB: [facility] [id number] RDAVENUE Number: Repository OF [id number] [place], Date:2018-03-30 [place] [address]Ird: (HP) 03/30/2018 Secondary ARIANNA L [place] Insurance:ANTHEMPolic BALDNERDOB: Community y Number: [id number] Hospital [id number] Repository Date:8645-99-65PF [address] [place] [address]JB: 03/30/2018 Tertiary NOT GIVENUNK [place] Insurance:SELF PAY [facility] Number: Effective Repository Date:2018-03-30 03/22/2018 ARIANNA L Primary ARIANNA L [place] BALDNERTHE Insurance:MEDICARE BALDNERDOB: [facility] [address] [facility] [id number]. [facility]'s Medical [facility]1700 E Number: Repository ANTELOPE [id number] [place] Date:2018-03-22 [place], [place] [address]Eaq: () 03/22/2018 Secondary ARIANNA L [place] Insurance:ANTHEMPolic BALDNERDOB: Community y Number: [id number] Hospital [id number] Repository Date:9361-58-87[address], [place] [address]NM: 03/22/2018 Tertiary NOT GIVENUNK [place] Insurance:SELF PAY [facility] Hospital Number: Effective Repository Date:2018-03-22 03/18/2018 ARIANNA L Primary ARIANNA L [place] BALDNERTHE Insurance:MEDICARE BALDNERDOB: [facility] [address] [facility] [id number]. Mary's Medical Center1700 E Number: Repository ANTELOPE [id number] [place] Date:2018-03-18 [place], [place] [address]Dmr: () 03/18/2018 Secondary ARIANNA L [place] Insurance:ANTHEMPolic BALDNERDOB: Community y Number: [id number] Hospital [id number] Repository Date:7984-14-63JK [address] [place] [address]PN: 03/18/2018 Tertiary NOT GIVENUNK [place] Insurance:SELF PAY [facility] Hospital Number: Effective Repository Date:2018-03-18 02/25/2018 ARIANNA L Primary ARIANNA L [place] BALDNERTHE Insurance:MEDICARE BALDNERDOB: [facility] [id number]. Mary's Medical Center1700 E Number: Repository ANTELOPE [id number] [place] Date:2018-02-25 [place], [place] [address]Mdx: () 02/25/2018 Secondary ARIANNA L [place] Insurance:ANTHEMPolic BALDNERDOB: Community y Number: [id number] Hospital [id number] Repository Date:2253-33-76TU [address] [place] [address]IT: 02/25/2018 Tertiary NOT GIVENUNK [place] Insurance:SELF PAY [facility] Number: Effective Repository Date:2018-02-25 02/22/2018 ARIANNA L Primary ARIANNA L [place] Insurance:MEDICARE BALDNERDOB: [facility] PART A [facility] [id number] [address] E Number: Repository ANTELOPE [id number] [place] Date:2018-02-22 [place], [place] [address]Wue: () 02/22/2018 Secondary ARIANNA L [place] Insurance:ANTHEMPolic BALDNERDOB: Community y Number: [id number] Hospital [id number] Repository Date:2956-05-36FT [address] [place] [address]BT: 02/22/2018 Tertiary NOT GIVENUNK [place] Insurance:SELF PAY [facility] Number: Effective Repository Date:2018-02-22 02/20/2018 ARIANNA L Primary ARIANNA L [place] BALDNERTHE Insurance:MEDICARE BALDNERDOB: [facility] PART A [facility] [id number]. Mary's Medical Center1700 E Number: Repository ANTELOPE [id number] [place] Date:2017-05-09 [place], [place] [address]Lib: () 02/20/2018 Secondary ARIANNA L [place] Insurance:ANTHEMPolic BALDNERDOB: Community y Number: [id number] Hospital [id number] Repository Date:2202-92-28PC [address] [place] [address]CL: 02/20/2018 Tertiary NOT GIVENUNK [place] Insurance:SELF PAY [facility] Number: Effective Repository Date:2018-02-15 02/20/2018 ARIANNA L Primary ARIANNA L [place] [id number] Insurance:MEDICARE BALDNERDOB: [address] [id number] [place], [place] [address]Nil: Number: Repository [id number] () Date:2018-02-20 02/20/2018 Secondary ARIANNA L [place] Insurance:ANTHEMPolic BALDNERDOB: Community y Number: [id number] Hospital [id number] Repository Date:7522-04-85BB [address] [address]AF: 02/20/2018 Tertiary NOT GIVENUNK [place] Insurance:SELF PAY [facility] Number: Effective Repository Date:2018-02-20 02/12/2018 ARIANNA L Primary ARIANNA L [place] [id number] Insurance:MEDICARE BALDNERDOB: [address] [id number] [place], [place] [address]Zgb: Number: Repository [id number] () Date:2018-01-02 02/12/2018 Secondary ARIANNA L [place] Insurance:ANTHEMPolic BALDNERDOB: Community y Number: [id number] Hospital [id number] Repository Date:4558-47-09CD [address] [address]EX: 02/12/2018 Tertiary NOT GIVENUNK [place] Insurance:SELF PAY [facility] Number: Effective Repository Date:2018-02-12 02/05/2018 ARIANNA L Primary ARIANNA L [place] BALDNERTHE Insurance:MEDICARE BALDNERDOB: [facility] [id number] Hospital [id number] E Number: [facility] [id number] [place] Date:2018-02-05 [place], [place] [address]Dna: () 02/05/2018 Secondary ARIANNA L [place] Insurance:ANTHEMPolic BALDNERDOB: Community y Number: [id number] Hospital [id number] Repository Date:1150-31-09JG [address] [place] [address]YR: 02/05/2018 Tertiary NOT GIVENUNK [place] Insurance:SELF PAY [facility] Number: Effective Repository Date:2018-02-05 01/30/2018 ARIANNA L Primary ARIANNA L [place] [id number] CR Insurance:MEDICARE BALDNERDOB: [place] [id number], [place] [address]Pxk: Number: Repository [id number] () Date:2018-01-30 01/30/2018 Secondary ARIANNA L [place] Insurance:ANTHEMPolic BALDNERDOB: Community y Number: [id number] Hospital [id number] Repository Date:3720-34-53[address], [place] [address]CC: 01/30/2018 Tertiary NOT GIVENUNK [place] Insurance:SELF PAY [facility] Number: Effective Repository Date:2018-01-30 01/17/2018 ARIANNA L Primary ARIANNA L [place] [id number] Insurance:MEDICARE BALDNERDOB: [address] [id number] [place], [place] [address]Meh: Number: Repository [id number] () Date:2018-01-17 01/17/2018 Secondary ARIANNA L Mason Insurance:ANTHEMPolic BALDNERDOB: Community y Number: [id number] [facility] [id number] Repository Date:1565-84-95[address], [place] [address]DB: 01/17/2018 Tertiary NOT GIVENUNK Mason Insurance:SELF PAY [facility] Number: Effective Repository Date:2018-01-17 01/17/2018 ARIANNA L Primary ARIANNA L Andrea [id number] CR Insurance:MEDICARE BALDNERDOB: [address], [place] [address]Jlu: Number: Repository [id number] () Date:2018-01-17 01/17/2018 Secondary ARIANNA L Andrea Insurance:ANTHEMPolic BALDNERDOB: Community y Number: [id number] Hospital [id number] Repository Date:7771-24-25EK [address] [place] [address]RV: 01/17/2018 Tertiary NOT GIVENUNK Mason Insurance:SELF PAY [facility] Number: Effective Repository Date:2018-01-17 01/10/2018 ARIANNA L Primary ARIANNA L Mason [id number] CR Insurance:MEDICARE BALDNERDOB: [address] [address]Cuy: Number: Repository [id number] () Date:2018-01-08 01/10/2018 Secondary ARIANNA L Mason Insurance:ANTHEMPolic BALDNERDOB: Community y Number: [id number] Hospital [id number] Repository Date:6423-64-41KT [address], [place] [address]ND: 01/10/2018 Tertiary NOT GIVENUNK Mason Insurance:SELF PAY [facility] Number: Effective Repository Date:2018-01-08 12/21/2017 ARIANNA L Primary ARIANNA L Andrea [id number] CR Insurance:MEDICARE BALDNERDOB: [address] [address]Xpt: Number: Repository [id number] () Date:2017-12-21 12/21/2017 Secondary ARIANNA L Mason Insurance:ANTHEMPolic BALDNERDOB: Community y Number: [id number] [id number] Repository Date:6802-63-63SJ [address] [place] [address] 13086HQ: 12/21/2017 Tertiary NOT GIVENUNK Andrea Insurance:SELF PAY [facility] Number: Effective Repository Date:2017-12-21 12/11/2017 ARIANNA L Primary ARIANNA L Andrea [id number] CR Insurance:MEDICARE BALDNERDOB: [address], [place] [address]Gvx: Number: Repository [id number] (HP) Date:2017-12-04 12/11/2017 Secondary ARIANNA L Mason Insurance:ANTHEMPolic BALDNERDOB: Community y Number: [id number] [id number] Repository Date:5559-27-07RY [address] [place] [address] 64[address]ZO: 12/11/2017 Tertiary NOT GIVENUNK Mason Insurance:SELF PAY [facility] Number: Effective Repository Date:2017-12-11 12/04/2017 ARIANNA L Primary ARIANNA L Andrea [id number] CR Insurance:MEDICARE BALDNERDOB: [address] [id number] [address]Fxx: Number: Repository [id number] (HP) Date:2017-11-12 12/04/2017 Secondary RAIANNA L Andrea Insurance:ANTHEMPolic BALDNERDOB: Community y Number: [id number] [id number] Repository Date:4526-31-52WT [address] [place] [address]XE: 12/04/2017 Tertiary NOT GIVENUNK Mason Insurance:SELF PAY [facility] Number: Effective Repository Date:2017-11-12 12/04/2017 ARIANNA L Primary ARIANNA L Andrea [id number] CR Insurance:MEDICARE BALDNERDOB: [address] [address]Zvj: Number: Repository [id number] (HP) Date:2017-11-12 12/04/2017 Secondary ARIANNA L Andrea Insurance:ANTHEMPolic BALDNERDOB: Community y Number: [id number] Hospital [id number] Repository Date:2223-29-62AG [address] [place] [address] 16[address]IN: 12/04/2017 Tertiary NOT GIVENUNK Andrea Insurance:SELF PAY [facility] Number: Effective Repository Date:2017-12-04 12/04/2017 ARIANNA L Primary ARIANNA L Mason [id number] CR Insurance:MEDICARE BALDNERDOB: [address] [id number], [place] [address]Sug: Number: Repository [id number] () Date:2017-12-04 12/04/2017 Secondary ARIANNA L Mason Insurance:ANTHEMPolic BALDNERDOB: Community y Number: [id number] [id number] Repository Date:3601-15-02GE [address] [place] [address] 6[address]HV: 12/04/2017 Tertiary NOT GIVENUNK Andrea Insurance:SELF PAY [facility] Number: Effective Repository Date:2017-12-04 11/13/2017 ARIANNA L Primary ARIANNA L Mason [id number] CR Insurance:MEDICARE BALDNERDOB: [address] [id number] [place] [address]Dou: Number: Repository [id number] () Date:2017-11-12 11/13/2017 Secondary ARIANNA L Mason Insurance:ANTHEMPolic BALDNERDOB: Community y Number: [id number] [facility] [id number] Repository Date:4157-67-65DY [address] [place] [address] 58481AN: 11/13/2017 Tertiary NOT GIVENUNK Mason Insurance:SELF PAY [facility] Number: Effective Repository Date:2017-11-12 11/12/2017 ARIANNA L Primary ARIANNA L Andrea [id number] CR Insurance:MEDICARE BALDNERDOB: Community [address] [place] [address] [id number], [place] [address]Mce: Number: Repository [id number] () Date:2017-09-28 11/12/2017 Secondary ARIANNA L Mason Insurance:ANTHEMPolic BALDNERDOB: Community y Number: [id number] Hospital [id number] Repository Date:1489-37-02RX [address] [place] [address] 40139JG: 11/12/2017 Tertiary NOT GIVENUNK Andrea Insurance:SELF PAY [facility] Number: Effective Repository Date:2017-11-12 11/08/2017 ARIANNA L Primary ARIANNA L Andrea [id number] CR Insurance:MEDICARE BALDNERDOB: [address] [id number] [place], [place] [address]Upx: Number: Repository [id number] () Date:2017-08-30 11/08/2017 Secondary ARIANNA L Andrea Insurance:ANTHEMPolic BALDNERDOB: Community y Number: [id number] [facility] [id number] Repository Date:6905-08-80AN [address] [place] [address] 012[address]IB: 11/08/2017 Tertiary NOT GIVENUNK Mason Insurance:SELF PAY [facility] Number: Effective Repository Date:2017-08-30 09/20/2017 ARIANNA L Primary ARIANNA L Mason [id number] CR Insurance:MEDICARE BALDNERDOB: Community [address] [place], [place] [address]19-04-19[place], [place] [address]Tna: Number: Repository [id number] () Date:2003-07-30 09/20/2017 Secondary ARIANNA L Andrea Insurance:ANTHEMPolic BALDNERDOB: Community y Number: [id number] Hospital [id number] Repository Date:0031-28-19CC [address] [place] [address] 60863PC: 09/20/2017 Tertiary NOT GIVENUNK Mason Insurance:SELF PAY [facility] Number: Effective Repository Date:2017-09-12 09/14/2017 ARIANNA L Primary ARIANNA L Mason [id number] CR Insurance:MEDICARE BALDNERDOB: Community [address] [place], [place] [id number] , [place] [address]Vat: Number: Repository [id number] (HP) Date:2017-09-03 09/14/2017 Secondary ARIANNA L Andrea Insurance:ANTHEMPolic BALDNERDOB: Community y Number: [id number] [facility] [id number] Repository Date:5275-87-06VX [address] [place] [address] 40523SG: 09/14/2017 Tertiary NOT GIVENUNK Andrea Insurance:SELF PAY [facility] Number: Effective Repository Date:2017-09-03 09/13/2017 ARIANNA L Primary ARIANNA L Mason [id number] CR Insurance:MEDICARE BALDNERDOB: [address] [id number] [place], [place] [address]Mkw: Number: Repository [id number] (HP) Date:2017-09-13 09/13/2017 Secondary ARIANNA L Andrea Insurance:ANTHEMPolic BALDNERDOB: Community y Number: [id number] [facility] [id number] Repository Date:1648-51-63OR [address] [place] [address] 30636RF: 09/13/2017 Tertiary NOT GIVENUNK Mason Insurance:SELF PAY [facility] Number: Effective Repository Date:2017-09-13 09/11/2017 ARIANNA L Primary ARIANNA L Andrea [id number] CR Insurance:MEDICARE BALDNERDOB: [address], [place] [address]Mdm: Number: Repository [id number] (HP) Date:2017-09-11 09/11/2017 Secondary ARIANNA L Andrea Insurance:ANTHEMPolic BALDNERDOB: Community y Number: [id number] Hospital [id number] Repository Date:8092-42-38MB [address] [place] [address] 63091GF: 09/11/2017 Tertiary NOT GIVENUNK Andrea Insurance:SELF PAY [facility] Number: Effective Repository Date:2017-09-11 08/30/2017 ARIANNA L Primary ARIANNA L Mason [id number] CR Insurance:MEDICARE BALDNERDOB: [id number], [place] [address]Olo: Number: Repository [id number] () Date:2017-08-02 08/30/2017 Secondary ARIANNA L Mason Insurance:ANTHEMPolic BALDNERDOB: Community y Number: [id number] [facility] [id number] Repository Date:7634-83-02NE [address] [place] [address] 83414MF: 08/30/2017 Tertiary NOT GIVENUNK Mason Insurance:SELF PAY [facility] Number: Effective Repository Date:2017-08-02 08/27/2017 ARIANNA L Primary ARIANNA L Mason [id number] CR Insurance:MEDICARE BALDNERDOB: [address] [id number] [place], [place] [address]Chf: Number: Repository [id number] () Date:2017-08-27 08/27/2017 Secondary ARIANNA L Mason Insurance:ANTHEMPolic BALDNERDOB: Community y Number: [id number] [facility] [id number] Repository Date:0686-80-46EX [address], [place] [address]IZ: 08/27/2017 Tertiary NOT GIVENUNK Mason Insurance:SELF PAY [facility] Number: Effective Repository Date:2017-08-27 08/27/2017 ARIANNA L Primary ARIANNA L Mason [id number] CR Insurance:MEDICARE BALDNERDOB: Community [address] [place], [place] [address]19-04-19[place], [place] [address]Mch: Number: Repository [id number] () Date:2017-08-27 08/27/2017 Secondary ARIANNA L Mason Insurance:ANTHEMPolic BALDNERDOB: Community y Number: [id number] [facility] [id number] Repository Date:1505-40-50RC [address] [place] [address] 33802WT: 08/27/2017 Tertiary NOT GIVENUNK Mason Insurance:SELF PAY [facility] Number: Effective Repository Date:2017-08-27 08/02/2017 ARIANNA L Primary ARIANNA L Andrea [id number] CR Insurance:MEDICARE BALDNERDOB: [address] [id number] [place]se, [place] [address]Dpv: Number: Repository [id number] () Date:2017-07-27 08/02/2017 Secondary ARIANNA L Andrea Insurance:ANTHEMPolic BALDNERDOB: Community y Number: [id number] Hospital [id number] Repository Date:3408-85-70VD [address] [place] [address] 736[address]IZ: 08/02/2017 Tertiary NOT GIVENUNK Andrea Insurance:SELF PAY [facility] Number: Effective Repository Date:2017-08-02 07/27/2017 ARIANNA L Primary ARIANNA L Andrea [id number] CR Insurance:MEDICARE BALDNERDOB: Community [address] [place] [address] [id number] [place], [place] [address]Uxl: Number: Repository [id number] () Date:2017-07-11 07/27/2017 Secondary ARIANNA L Mason Insurance:ANTHEMPolic BALDNERDOB: Community y Number: [id number] [facility] [id number] Repository Date:1864-22-83HV [address] [place] [address] 47[address]ZD: 07/27/2017 Tertiary NOT GIVENUNK Andrea Insurance:SELF PAY [facility] Number: Effective Repository Date:2017-07-11 07/27/2017 ARIANNA L Primary ARIANNA L Mason [id number] CR Insurance:MEDICARE BALDNERDOB: Community [address] [place], [place] [address], [place] [address]Gbu: Number: Repository [id number] (HP) Date:2017-07-11 07/27/2017 Secondary ARIANNA L Andrea Insurance:ANTHEMPolic BALDNERDOB: Community y Number: [id number] Hospital [id number] Repository Date:0307-76-72EA [address] [place] [address] 32149EH: 07/27/2017 Tertiary NOT GIVENUNK Andrea Insurance:SELF PAY [facility] Number: Effective Repository Date:2017-07-27 07/26/2017 ARIANNA L Primary ARIANNA L Mason [id number] CR Insurance:MEDICARE BALDNERDOB: [address], [place] [address]Myb: Number: Repository [id number] (HP) Date:2017-07-25 07/26/2017 Secondary ARIANNA L Mason Insurance:ANTHEMPolic BALDNERDOB: Community y Number: [id number] Hospital [id number] Repository Date:2473-09-21OG [address] [place] [address] 68332EX: 07/26/2017 Tertiary NOT GIVENUNK Andrea Insurance:SELF PAY [facility] Number: Effective Repository Date:2017-07-25 07/24/2017 ARIANNA L Primary ARIANNA L Mason [id number] CR Insurance:MEDICARE BALDNERDOB: Community [address] [place], [place] [address], [place] [address]Bqj: Number: Repository [id number] (HP) Date:2017-07-24 07/24/2017 Secondary ARIANNA L Mason Insurance:ANTHEMPolic BALDNERDOB: Community y Number: [id number] Hospital [id number] Repository Date:4028-35-88UO [address] [place] [address] 84853WA: 07/24/2017 Tertiary NOT GIVENUNK Andrea Insurance:SELF PAY [facility] Number: Effective Repository Date:2017-07-24 07/23/2017 ARIANNA L Primary ARIANNA L Mason [id number] CR Insurance:MEDICARE BALDNERDOB: [address] [id number] [place], [place] [address]Dmf: Number: Repository [id number] () Date:2017-07-23 07/23/2017 Secondary ARIANNA L Mason Insurance:ANTHEMPolic BALDNERDOB: Community y Number: [id number] Hospital [id number] Repository Date:1504-79-79EA [address] [place] [address] 66707IP: 07/23/2017 Tertiary NOT GIVENUNK Mason Insurance:SELF PAY [facility] Number: Effective Repository Date:2017-07-23 07/10/2017 ARIANNA L Primary ARIANNA L Andrea [id number] CR Insurance:MEDICARE BALDNERDOB: [address] [id number], [place] [address]Yxu: Number: Repository [id number] () Date:2017-06-19 07/10/2017 Secondary ARIANNA L Andrea Insurance:ANTHEMPolic BALDNERDOB: Community y Number: [id number] Hospital [id number] Repository Date:9158-86-15OE [address] [place] [address] 77385UN: 07/10/2017 Tertiary NOT GIVENUNK Mason Insurance:SELF PAY [facility] Number: Effective Repository Date:2017-06-19 07/02/2017 Arianna L Primary NOT GIVENUNK Andrea [id number] Cr Insurance:ANTHEMPolic Community [address] [place] [address] y Number: [facility] [place] [address]Tke: Date:6240-97-34IM BOX Repository [address]12088QIJCGOE, [place] () [address]CD: 07/02/2017 Secondary NOT GIVENUNK Andrea Insurance:MEDICARE [facility] Number: Effective Repository Date:2017-04-13 07/02/2017 Tertiary NOT GIVENUNK Andrea Insurance:SELF PAY [facility] Number: Effective Repository Date:2017-04-13 06/29/2017 ARIANNA L Primary ARIANNA L Andrea [id number] CR Insurance:MEDICARE [facility]: [place] [id number] , [place] [address]Pyv: Number: Repository [id number] () Date:2017-06-28 06/29/2017 Secondary ARIANNA L Andrea Insurance:ANTHEMPolic BALDNERDOB: Community y Number: [id number] [facility] [id number] Repository Date:5542-99-29II [address]FUNTWV [place] [address]KC: 06/29/2017 Tertiary NOT GIVENUNK Mason Insurance:SELF PAY [facility] Number: Effective Repository Date:2017-06-28 06/28/2017 ARIANNA L Primary ARIANNA L Mason [id number] CR Insurance:MEDICARE BALDNERDOB: [address] [id number] [facility] , [place] [address]Wrd: Number: Repository [id number] () Date:2017-06-28 06/28/2017 Secondary ARIANNA L Andrea Insurance:ANTHEMPolic BALDNERDOB: Community y Number: [id number] Hospital [id number] Repository Date:7110-96-06ZJ [address]JRQEOV, [place] [address]LE: 06/28/2017 Tertiary NOT GIVENUNK Andrea Insurance:SELF PAY [facility] Number: Effective Repository Date:2017-06-28 06/25/2017 ARIANNA L Primary ARIANNA L Mason [id number] CR Insurance:MEDICARE BALDNERDOB: [address] [address]Lrq: Number: Repository [id number] (HP) Date:2017-06-25 06/25/2017 Secondary ARIANNA L Mason Insurance:ANTHEMPolic BALDNERDOB: Community y Number: [id number] [facility] [id number] Repository Date:9088-87-62YU [address] [place] [address] 48538NV: 06/25/2017 Tertiary NOT GIVENUNK Mason Insurance:SELF PAY [facility] Number: Effective Repository Date:2017-06-25 06/19/2017 ARIANNA L Primary ARIANNA L Andrea [id number] CR Insurance:MEDICARE BALDNERDOB: [address] [address]Cmv: Number: Repository [id number] (HP) Date:2017-06-05 06/19/2017 Secondary ARIANNA L Andrae Insurance:ANTHEMPolic BALDNERDOB: Community y Number: [id number] Hospital [id number] Repository Date:4940-82-63GD [address]NLQ[place]BY, [place] [address]SJ: 06/19/2017 Tertiary NOT GIVENUNK Andrea Insurance:SELF PAY [facility] Number: Effective Repository Date:2017-06-05 06/18/2017 ARIANNA L Primary ARIANNA L Mason [id number] CR Insurance:MEDICARE BALDNERDOB: [address] [address]Pae: Number: Repository [id number] (HP) Date:2017-05-28 06/18/2017 Secondary ARIANNA L Andrea Insurance:ANTHEMPolic BALDNERDOB: Community y Number: [id number] [id number] Repository Date:1175-22-36OO [address]PMPOHTQ, [place] [address]FL: 06/18/2017 Tertiary NOT GIVENUNK Andrea Insurance:SELF PAY [facility] Number: Effective Repository Date:2017-05-28 06/14/2017 ARIANNA L Primary ARIANNA L Mason [id number] CR Insurance:MEDICARE BALDNERDOB: [address]04[address]19[place], [place] [address]Afe: Number: Repository [id number] (HP) Date:2017-06-14 06/14/2017 Secondary ARIANNA L Andrea Insurance:ANTHEMPolic BALDNERDOB: Community y Number: [id number] Hospital [id number] Repository Date:1074-19-37SB [address]ABYQMXM, [place] [address]LE: 06/14/2017 Tertiary NOT GIVENUNK Andrea Insurance:SELF PAY [facility] Number: Effective Repository Date:2017-06-14 06/11/2017 ARIANNA L Primary ARIANNA L Andrea [id number] CR Insurance:MEDICARE BALDNERDOB: [address] [address]Dss: Number: Repository [id number] (HP) Date:2017-06-11 06/11/2017 Secondary ARIANNA L Mason Insurance:ANTHEMPolic BALDNERDOB: Community y Number: [id number] [id number] Repository Date:4047-21-77SV [address] [place] [address]DN: 06/11/2017 Tertiary NOT GIVENUNK Mason Insurance:SELF PAY [facility] Number: Effective Repository Date:2017-06-11 06/07/2017 ARIANNA L Primary ARIANNA L Mason [id number] CR Insurance:MEDICARE BALDNERDOB: [address], [place] [address]Uwk: Number: Repository [id number] (HP) Date:2017-06-07 06/07/2017 Secondary ARIANNA L Andrea Insurance:ANTHEMPolic BALDNERDOB: Community y Number: [id number] Hospital [id number] Repository Date:6702-89-48AQ [address]UWFMWXB [place] [address]WZ: 06/07/2017 Tertiary NOT GIVENUNK Mason Insurance:SELF PAY [facility] Number: Effective Repository Date:2017-06-07 06/05/2017 ARIANNA L Primary ARIANNA L Mason [id number] CR Insurance:MEDICARE BALDNERDOB: [address]19[place], [place] [address]Vgi: Number: Repository [id number] (HP) Date:2017-05-22 06/05/2017 Secondary ARIANNA L Andrea Insurance:ANTHEMPolic BALDNERDOB: Community y Number: [id number] Hospital [id number] Repository Date:9670-60-42[address]OSVNDD, [place] [address]DS: 06/05/2017 Tertiary NOT GIVENUNK Mason Insurance:SELF PAY [facility] Number: Effective Repository Date:2017-05-22 05/31/2017 ARIANNA L Primary ARIANNA L Mason [id number] CR Insurance:MEDICARE BALDNERDOB: [address], [place] [address]Gdt: Number: Repository [id number] (HP) Date:2017-05-31 05/31/2017 Secondary ARIANNA L Mason Insurance:ANTHEMPolic BALDNERDOB: Community y Number: [id number] Hospital [id number] Repository Date:3808-54-67BB [address]RFWNYAP [place] [address]UB: 05/31/2017 Tertiary NOT GIVENUNK Andrea Insurance:SELF PAY [facility] Number: Effective Repository Date:2017-05-31 05/31/2017 ARIANNA L Primary ARIANNA L Mason [id number] CR Insurance:MEDICARE BALDNERDOB: [address] [address]Wja: Number: Repository [id number] (HP) Date:2017-05-29 05/31/2017 Secondary ARIANNA L Andrea Insurance:ANTHEMPolic BALDNERDOB: Community y Number: [id number] [id number] Repository Date:7102-65-41LV [address] [place] [address]OE: 05/31/2017 Tertiary NOT GIVENUNK Mason Insurance:SELF PAY [facility] Number: Effective Repository Date:2017-05-29 05/27/2017 ARIANNA L Primary ARIANNA L Andrea [id number] CR Insurance:MEDICARE BALDNERDOB: [address] [address]Jus: Number: Repository [id number] (HP) Date:2017-05-27 05/27/2017 Secondary ARIANNA L Mason Insurance:ANTHEMPolic BALDNERDOB: Community y Number: [address] [place] [address] [id number] Repository Date:0743-52-45[address]OW[place], [place] [address]SU: 05/27/2017 Tertiary NOT GIVENUNK Andrea Insurance:SELF PAY [facility] Number: Effective Repository Date:2017-05-27 05/24/2017 ARIANNA L Primary ARIANNA L Mason [id number] CR Insurance:MEDICARE BALDNERDOB: [address] [address]Teq: Number: Repository [id number] (HP) Date:2017-05-22 05/24/2017 Secondary ARIANNA L Mason Insurance:ANTHEMPolic BALDNERDOB: Community y Number: [address] [place] [address] [id number] Repository Date:3480-58-36ZD [address]YRPOQAU, [place] [address]TV: 05/24/2017 Tertiary NOT GIVENUNK Andrea Insurance:SELF PAY [facility] Effective Repository Date:2017-05-22
== END 2018-04-12 13:30 | disposition home or self-care (01) ==
LOC: CLSP 09:55
PROVIDERS: Family Provider Family Medicine Geriatric Medicine; PCP Family Medicine Geriatric Medicine; Referring Provider Surgery; Visit Provider Surgery
DX: T82.898D Other specified complication of vascular prosthetic devices, implants and grafts, subsequent encounter (principal); I77.0 Arteriovenous fistula, acquired; Z87.891 Personal history of nicotine dependence; R53.83 Other fatigue; R94.31 Abnormal electrocardiogram [ECG] [EKG]; Z79.899 Other long term (current) drug therapy; I27.20 Pulmonary hypertension, unspecified; G47.33 Obstructive sleep apnea (adult) (pediatric); I11.0 Hypertensive heart disease with heart failure; I25.10 Atherosclerotic heart disease of native coronary artery without angina pectoris; R06.02 Shortness of breath; N40.0 Benign prostatic hyperplasia without lower urinary tract symptoms; I12.9 Hypertensive chronic kidney disease with stage 1 through stage 4 chronic kidney disease, or unspecified chronic kidney disease; N18.3 Chronic kidney disease, stage 3 (moderate); E78.5 Hyperlipidemia, unspecified; K21.9 Gastro-esophageal reflux disease without esophagitis; I50.32 Chronic diastolic (congestive) heart failure
CPT/HCPCS: 36415; 36902; 76937; 80048; 85027; C1725; C1769; C1894

== ENCOUNTER → 2018-04-22 12:10 | Outpatient (REF) | payer MEDICARE, BC, SELFPAY ==
[2018-04-12 10:38] VITALS: BMI 37.5
[2018-04-22 13:15] LABS: Anion Gap 10 (5-15); BUN 42 mg/dL (7-18); BUN/Creat Ratio 10.9 RATIO (10-20); Calcium,Total 8.2 mg/dL (8.5-10.1); Chloride 107 mmol/L (98-107); Creatinine, Serum 3.85 mg/dL (0.70-1.30); EST Glomerular Filtration Rate 16 mL/min (>60); Est Glom Filt Rate - Afr Amer 20 mL/min (>60); Glucose 92 mg/dL (74-106); Potassium 4.4 mmol/L (3.5-5.1); Sodium Level 141 mmol/L (136-145)
== END ==
LOC: OLS.AVEC 12:10
PROVIDERS: Visit Provider Family Medicine
DX: R60.9 Edema, unspecified (principal)
CPT/HCPCS: 36415; 80048

== ENCOUNTER → 2018-04-26 05:00 | Outpatient (REF) | payer MEDICARE, BC, SELFPAY ==
[2018-04-12 10:38] VITALS: BMI 37.5
[2018-04-26 09:12] LABS: Anion Gap 13 (5-15); BUN 50 mg/dL (7-18); BUN/Creat Ratio 11.7 RATIO (10-20); Calcium,Total 8.2 mg/dL (8.5-10.1); Chloride 103 mmol/L (98-107); Creatinine, Serum 4.28 mg/dL (0.70-1.30); EST Glomerular Filtration Rate 14 mL/min (>60); Est Glom Filt Rate - Afr Amer 17 mL/min (>60); Glucose 87 mg/dL (74-106); Potassium 3.6 mmol/L (3.5-5.1); Sodium Level 144 mmol/L (136-145)
== END ==
LOC: OLS.AVEC 05:00
PROVIDERS: Visit Provider Family Medicine
DX: I10 Essential (primary) hypertension (principal); E03.9 Hypothyroidism, unspecified
CPT/HCPCS: 36415; 80048

== ENCOUNTER → 2018-05-02 04:30 | Outpatient (REF) | payer MEDICARE, BC, SELFPAY ==
[2018-04-12 10:38] VITALS: BMI 37.5
[2018-05-02 06:49] LABS: Absolute Lymphocyte Count 1.62 X10^3/ul (0.83-4.51); Absolute Neutrophil Count 5.5 X10^3/uL (2.0-7.7); Basophil# 0.02 X10^3/uL; Basophil% 0.2 % (0-1); Eosinophil# 0.32 X10^3/uL; Eosinophils% 3.9 % (0-5); Hematocrit 32.1 % (40-54); Lymphocyte # 1.62 X10^3/ul (4.0); Lymphocyte % 19.8 % (19-41); Mean Corp Hgb Conc 31.2 g/gl (32-36); Mean Corpuscular Hgb 28.6 pg (27.0-32.0); Mean Corpuscular Volume 91.7 fL (80-94); Mean Platelet Vol. 11.2 fl (6.2-12.0); Monocyte# 0.73 X10^3/uL; Monocyte% 8.9 % (0-10); Neutrophil # 5.48 X10^3/uL (2.7-7.7); Neutrophil % 67.1 % (47-70); Platelet Count 211 K/mm3 (150-450); RBC Distribution Width CV 14.3 % (11.6-14.6); RBC Distribution Width SD 46.2 fl (35.1-43.9); White Blood Count 8.2 K/mm3 (4.4-11.0)
[2018-05-02 06:51] LABS: POSITIVE COUNT NO; POSITIVE DIFFERENTIAL NO; POSITIVE MORPHOLOGY NO
== END ==
LOC: OLS.AVED 04:30
PROVIDERS: Visit Provider Family Medicine
DX: E78.5 Hyperlipidemia, unspecified (principal); E03.9 Hypothyroidism, unspecified
CPT/HCPCS: 36415; 84443; 85025

== ENCOUNTER → 2018-05-02 11:16 | Outpatient (CLI) | payer MEDICARE, BC, SELFPAY ==
[2018-04-12 10:38] VITALS: BMI 37.5
[2018-05-02 12:42] LABS: PTHIN 164.2 pg/mL (18.4-80.1)
== END ==
PROVIDERS: Family Provider Family Medicine Geriatric Medicine; PCP Family Medicine Geriatric Medicine; Visit Provider Internal Medicine Nephrology
DX: N25.81 Secondary hyperparathyroidism of renal origin (principal)
CPT/HCPCS: 36415; 83970

== ENCOUNTER → 2018-05-13 04:00 | Outpatient (REF) | payer MEDICARE, BC, SELFPAY ==
[2018-05-13 07:28] LABS: Albumin, Serum 3.2 g/dL (3.2-5.0); BUN 50 mg/dL (7-18); BUN/Creat Ratio 14.5 RATIO (10-20); Calcium,Total 8.4 mg/dL (8.5-10.1); Chloride 106 mmol/L (98-107); Creatinine, Serum 3.46 mg/dL (0.70-1.30); EST Glomerular Filtration Rate 18 mL/min (>60); Est Glom Filt Rate - Afr Amer 22 mL/min (>60); Glucose 107 mg/dL (74-106); Phosphorus 3.8 mg/dL (2.5-4.9); Potassium 4.1 mmol/L (3.5-5.1); Sodium Level 141 mmol/L (136-145)
== END ==
LOC: OLS.AVEC 04:00
PROVIDERS: Visit Provider Family Medicine
DX: E03.9 Hypothyroidism, unspecified (principal); E78.5 Hyperlipidemia, unspecified
CPT/HCPCS: 36415; 80069

== ENCOUNTER → 2018-05-17 05:00 | Outpatient (REF) | payer MEDICARE, BC, SELFPAY ==
[2018-05-17 08:25] LABS: BUN 59 mg/dL (7-18); BUN/Creat Ratio 15.2 RATIO (10-20); Calcium,Total 8.4 mg/dL (8.5-10.1); Chloride 106 mmol/L (98-107); Creatinine, Serum 3.89 mg/dL (0.70-1.30); EST Glomerular Filtration Rate 16 mL/min (>60); Est Glom Filt Rate - Afr Amer 19 mL/min (>60); Glucose 108 mg/dL (74-106); Phosphorus 4.4 mg/dL (2.5-4.9); Potassium 4.2 mmol/L (3.5-5.1); Sodium Level 142 mmol/L (136-145)
--- OUTSIDE RECORDS SUMMARY | 2018-07-21 13:29 | XMS RPT_ITS ---
:1940 Author Organization OHIP Support Name Relationship Address Phone Cholo Guillermo Unavailable [address] + [place] [address] R Unavailable Unavailable Unavailable Cholo Guillermo Unavailable [address] + [place] [address] R Unavailable Unavailable Unavailable Cholo Guillermo Unavailable [address] + [place] [address] R Unavailable Unavailable Unavailable Cholo Guillermo Unavailable [address] + [place] [address] R Unavailable Unavailable Unavailable Cholo Guillermo Unavailable [address] + [place] [address] R Unavailable Unavailable Unavailable Cholo Guillermo Unavailable [address] + [place] [address] R Unavailable Unavailable Unavailable Cholo Guillermo Unavailable [address] + [place] [address] R Unavailable Unavailable Unavailable Cholo Guillermo Unavailable [address] + [place] [address] R Unavailable Unavailable Unavailable CHOLO GUILLERMO Unavailable [address] + [place] [address] R Unavailable Unavailable Unavailable CHOLO GUILLERMO Unavailable [address] + [place] [address] R Unavailable Unavailable Unavailable CHOLO GUILLERMO Unavailable [address] + [place] [address] R Unavailable Unavailable Unavailable Cholo Guillermo Unavailable . + [place] [address] R Unavailable Unavailable Unavailable Cholo Guillermo Unavailable [address] + [place] [address] R Unavailable Unavailable Unavailable Cholo Guillermo Unavailable . + [place] [address] R Unavailable Unavailable Unavailable BaldnerCholo Unavailable . + [place] [address] R Unavailable Unavailable Unavailable BaltessyerCholo Unavailable . + [place] [address] R Unavailable Unavailable Unavailable BaldnerCholo Unavailable . + [place] [address] R Unavailable Unavailable Unavailable BaldnerCholo Unavailable . + [place] [address] R Unavailable Unavailable Unavailable BaldnerCholo Unavailable [address] + [place] [address] R Unavailable Unavailable Unavailable BaltessyerCholo Unavailable . + [place] [address] R Unavailable Unavailable Unavailable BaltessyerCholo Unavailable . + [place] [address] R Unavailable Unavailable Unavailable BaldnerCholo Unavailable [address] + [place] [address] R Unavailable Unavailable Unavailable CHOLO GUILLERMO Unavailable . + [place] [address] R Unavailable Unavailable Unavailable CHOLO GUILLERMO Unavailable . + [place] [address] R Unavailable Unavailable Unavailable JONOERCHOLO Unavailable . + [place] [address] R Unavailable Unavailable Unavailable JONOERCHOLO Unavailable . + [place] [address] R Unavailable Unavailable Unavailable CHOLO GUILLERMO Unavailable . + [place] [address] R Unavailable Unavailable Unavailable R Unavailable Unavailable Unavailable HORACE GUILLERMO Unavailable [address] + [place] [address] CHOLO GUILLERMO Unavailable Unavailable + R Unavailable Unavailable Unavailable CHOLO GUILLERMO Unavailable . + [place] [address] R Unavailable Unavailable Unavailable MENG GUILLERMOE Unavailable [address] + [place] [address] CHOLO GUILLERMO Unavailable Unavailable + R Unavailable Unavailable Unavailable JONOJORJENICOLLEHORACE Unavailable [address] + [place] [address] CHOLO GUILLERMO Unavailable . + [place] [address] R Unavailable Unavailable Unavailable KINDRADNERNICOLLEHORACE Unavailable [address] + [place] [address] CHOLO GUILLERMO Unavailable . + [place] [address] R Unavailable Unavailable Unavailable BALDNER HORACE Unavailable [address] + [place] [address] CHOLO GUILLERMO Unavailable Unavailable + [place] [address] R Unavailable Unavailable Unavailable BALDNER HORACE Unavailable [address] + [place] [address] CHOLO GUILLERMO Unavailable Unavailable + [place] [address] R Unavailable Unavailable Unavailable BALDNER HORACE Unavailable [address] + [place] [address] CHOLO GUILLERMO Unavailable Unavailable + [place] [address] R Unavailable Unavailable Unavailable KINDRADNERNICOLLEHORACE Unavailable [address] + [place] [address] CHOLO GUILLERMO Unavailable Unavailable + [place] [address] R Unavailable Unavailable Unavailable KIDNRADNERNICOLLEHORACE Unavailable [address] + [place] [address] CHOLO GUILLERMO Unavailable Unavailable + [place] [address] R Unavailable Unavailable Unavailable KINDRATESSYERNICOLLEHORACE Unavailable [address] + [place] [address] CHOLO GUILLERMO Unavailable . + [place] [address] R Unavailable Unavailable Unavailable KINDRATESSYERNICOLLEHORACE Unavailable [address] + [place] [address] CHOLO GUILLERMO Unavailable Unavailable + [place] [address] R Unavailable Unavailable Unavailable BALDNER HORACE Unavailable [address] + [place] [address] CHOLO GUILLERMO Unavailable . + [place] [address] R Unavailable Unavailable Unavailable BALDNER, HORACE Unavailable [address] + [place] [address] JONOCHOLO RECINOS Unavailable . + [place] [address] R Unavailable Unavailable Unavailable EAGLE HORACE Unavailable [address] + [place] [address] CHOLO GUILLERMO Unavailable Unavailable + [place] [address] R Unavailable Unavailable Unavailable HORAEC GUILLERMO Unavailable [address] + [place] [address] CHOLO GUILLERMO Unavailable Unavailable + [place] [address] R Unavailable Unavailable Unavailable HORACE GUILLERMO Unavailable [address] + [place] [address] CHOLO GUILLERMO Unavailable Unavailable + [place] [address] R Unavailable Unavailable Unavailable HORACE GUILLERMO Unavailable [address] + [place] [address] CHOLO GUILLERMO Unavailable Unavailable + [place] [address] R Unavailable Unavailable Unavailable HORACE GUILLERMO Unavailable [address] + [place] [address] CHOLO GUILLERMO Unavailable Unavailable + [place] [address] R Unavailable Unavailable Unavailable HORACE GUILLERMO Unavailable [address] + [place] [address] EAGLECHOLO Unavailable 1 + [place] [address] R Unavailable Unavailable Unavailable HORACE GUILLERMO Unavailable [address] + [place] [address] KINDRATESSYCHOLO RECINOS Unavailable [address] + [place] [address] R Unavailable Unavailable Unavailable HORACE GUILLERMO Unavailable [address] + [place] [address] EAGLECHOLO Unavailable 1 + [place] [address] R Unavailable Unavailable Unavailable HORACE GUILLERMO Unavailable [address] + [place] [address] CHOLO GUILLERMO Unavailable 1 + [place] [address] R Unavailable Unavailable Unavailable HORACE GUILLERMO Unavailable [address] + [place] [address] CHOLO GUILLERMO Unavailable 1 + [place] [address] R Unavailable Unavailable Unavailable HORACE GUILLERMO Unavailable [address] + [place] [address] CHOLO GUILLERMO Unavailable 1 + [place] [address] R Unavailable Unavailable Unavailable HORACE GUILLERMO Unavailable [address] + [facility] [address] CHOLO GUILLERMO Unavailable 1 + [place] [address] R Unavailable Unavailable Unavailable HORACE GUILLERMO Unavailable [address] + [facility] [address] CHOLO GUILLERMO Unavailable 1 + [place] [address] R Unavailable Unavailable Unavailable HORACE GUILLERMO Unavailable [address] + [facility] [address] CHOLO GUILLERMO Unavailable 1 + [place] [address] R Unavailable Unavailable Unavailable HORACE GUILLERMO Unavailable [address] + [facility] [address] CHOLO GUILLERMO Unavailable 1 + [place] [address] R Unavailable Unavailable Unavailable HORACE GUILLERMO Unavailable [address] + [facility] [address] CHOLO GUILLERMO Unavailable 1 + [place] [address] R Unavailable Unavailable Unavailable HORACE GUILLERMO Unavailable [address] + [facility] [address] CHOLO GUILLERMO Unavailable Unavailable + R Unavailable Unavailable Unavailable HORACE GUILLERMO Unavailable [address] + [facility] [address] CHOLO GUILLERMO Unavailable NA + [place], [place] R Unavailable Unavailable Unavailable HORACE GUILLERMO Unavailable [address] + [place] [address] CHOLO GUILLERMO Unavailable NA + [place], [place] R Unavailable Unavailable Unavailable Care Team Providers Name Role Phone Liam Brown Attending Unavailable Nicolas, Justice Chi Referring Unavailable Cebul, Liam Attending Unavailable Cebul, Liam Referring Unavailable Nicolas, Justice Chi Primary Care Unavailable Liam Brown Attending Unavailable Cebul, Liam Referring Unavailable Nicolas, Justice Chi Primary Care Unavailable Liam Brown Consulting Unavailable Liam Brown Attending Unavailable Nicolas, Justice Chi Referring Unavailable MurphyNorris Attending Unavailable Murphy, Norris Attending Unavailable Nicolas, Justice Chi Attending Unavailable Nicolas, Justice Chi Primary Care Unavailable Nicolas, Justice Chi Primary Care Unavailable Uli Laguerre Attending Unavailable Nicolas, Justice Chi Attending Unavailable Nicolas, Justice Chi Primary Care Unavailable Norris Murphy Attending Unavailable Raven Vo Attending Unavailable Luann Lang Attending Unavailable Nicolas, Justice Chi Primary Care Unavailable Jeffrey, Norris Attending Unavailable Murphy, Norris Attending Unavailable Nicolas, Justice Chi Attending Unavailable [...] Primary Care Unavailable Cebul Liam Consulting Unavailable Jaylin New PA-C Attending Unavailable [...] Attending Unavailable Nicolas, Justice Chi Referring Unavailable AbhishekLuann Attending Unavailable Nicolas, Justice [...] Liam Attending Unavailable Cebul, Liam Referring Unavailable AbhishekLuann Attending Unavailable Nicolas, Justice Chi Primary Care Unavailable Luann Lang Attending Unavailable Nicolas, Justice Chi Primary Care Unavailable Raven Vo Attending Unavailable Norris Murphy Attending Unavailable Jeffrey, Norris Attending Unavailable CebuLiam slater Attending Unavailable Nicolas, Justice Chi Referring Unavailable [...] Unknown E78.5 - Hyperlipidemia, Norris Murphy Active [place] 9 unspecified / Community E78.5(ICD-10) Hospital Repository Unknown I10 - Essential Norris Murphy Active [place] 9 (primary) hypertension / Community I10(ICD-10) Hospital Repository Unknown R60.9 - Edema, Norris Murphy Active [place] 9 unspecified / Community R60.9(ICD-10) Hospital Repository Unknown R53.83 - Other fatigue / Norris Murphy Active [place] 9 R53.83(ICD-10) [facility] Repository Unknown E87.5 - Hyperkalemia / Norris Murphy Active [place] 8 E87.5(ICD-10) [facility] Repository Unknown T82.598A - Other CebuLiam slater Active [place] 8 mechanical complication Community of other cardiac and Hospital vascular devices and Repository implants, initial encounter / T82.598A(ICD-10) Unknown N18.4 - Chronic kidney Luann Lang Active [place] 8 disease, stage 4 Community (severe) / N18.4(ICD-10) Hospital Repository Unknown E55.9 - Vitamin D Luann Lang Active [place] 8 deficiency, unspecified Community / E55.9(ICD-10) Hospital Repository Unknown D63.8 - Anemia in other Yannick Langine Active [place] 8 chronic diseases Community classified elsewhere / Hospital D63.8(ICD-10) Repository Unknown 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 / Hospital N25.81(ICD-10) Repository Unknown M16.9 - Osteoarthritis Nicolas, Justice Chi Active [place] 8 of hip, unspecified / Community M16.9(ICD-10) Hospital Repository Unknown L50.9 - Urticaria, Nicolas, Justice Chi Active [place] 8 unspecified / Community L50.9(ICD-10) Hospital Repository Unknown M54.6 - Pain in thoracic Nicolas, Justice Chi Active [place] 8 spine / M54.6(ICD-10) [facility] Repository Unknown M10.9 - Gout, Nicolas, Justice Chi Active [place] 8 unspecified / Community M10.9(ICD-10) Hospital Repository Unknown R06.02 - Shortness of Nicolas Justice Chi Active [place] 8 breath / R06.02(ICD-10) [facility] Repository Unknown N39.0 - Urinary tract Nicolas, Justice Chi Active [place] 8 infection, site not Community specified / Hospital N39.0(ICD-10) Repository Unknown N18.3 - Chronic kidney Nicolas, Justice Chi Active [place] 8 disease, stage 3 Community (moderate) / Hospital N18.3(ICD-10) Repository PROCEDURES PROCEDURES No Procedure Records FoundRESULTS RESULTS RENAL PROFILE Collected: 05/17/2018 Status: F Source: [place] 6:15 AM [facility] REPOSITORY Order Comment: 165 TYPE CODE TESTS [...] CO2 25.0 Performed By: #### L500.3600 #### [facility] [address] [place], [address] RENAL PROFILE Collected: 05/13/2018 Status: F Source: [place] 6:10 AM [facility] REPOSITORY Order Comment: ROOM 168 TYPE CODE [...] CO2 26.0 Performed By: #### L500.3600 #### [facility] [address] [place], [place], [address] PTHIN Collected: 05/02/2018 Status: F Source: [place] 11:17 AM [facility] REPOSITORY TYPE CODE TESTS RESULT OUT OF RANGE REFERENCE UNITS LAB L509.1000 18.4-80.1 pg/mL High PTHIN 164.2 Performed By: #### L509.1000 #### [facility] [address] [place], [place], [address] CBC W/DIFF, AUTOMATED Collected: 05/02/2018 Status: F Source: [place] 5:35 AM [facility] REPOSITORY Order Comment: ROOM 165 TYPE CODE [...] Lymph 1.62 Performed By: #### L100.0100 #### [facility] [address] [place], [address] THYROID STIM HORMONE Collected: 05/02/2018 Status: F Source: [place] (TSH) 5:35 AM [facility] REPOSITORY Order Comment: ROOM 165 TYPE CODE TESTS RESULT OUT OF RANGE REFERENCE UNITS LAB L501.9520 0.358-3.74 uIU/mL Normal TSH 2.40 Performed By: #### L501.9520 #### [facility] [address] [place], [address] BASIC METABOLIC Collected: 04/26/2018 Status: F Source: [place] PROFILE (BMP) 6:05 AM [facility] REPOSITORY Order Comment: ROOM 165 TYPE CODE [...] GAP 13 Performed By: #### L500.2500 #### [facility] [address] [place], [address] BASIC METABOLIC Collected: 04/22/2018 Status: F Source: [place] PROFILE (BMP) 12:10 PM [facility] REPOSITORY TYPE CODE TESTS RESULT OUT OF [...] GAP 10 Performed By: #### L500.2500 #### [facility] [address] [place], [address] SURGERY VISIT REPORT Observed: 04/19/2018 Status: F Source: [place] 3:05 PM [facility] REPOSITORY [facility] [address] [place] [address] [address] [place] [address] OFFICE VISIT Date of Service: 04/19/18 MR#: [id number] Acct: [id number] Name: ARIANNA GUILLERMO Rep #: [id number] : 1940 Provider: Liam Brown MD Age/Sex: 77/M Location: [facility] Status: Signed Intake Intake Visit Reasons: Suture Removal Fistula 04/12 Chief Complaint: post fistulogram Core Mounter Required: No Is patient in pain?: No [...] 1. Problem with dialysis access, subsequent encounter T82.482Q Plan The patient seems to have now [...] Diagnoses Problem with dialysis access, subsequent encounter T82.372V Encounter type: subsequent encounter 04/19/18 3273 <Electronically signed by Liam Brown MD> Date [facility] Signature: Date (if applicable) CC: Luann Lang DO OPERATIVE REPORT Observed: 04/12/2018 Status: F Source: [place] 12:14 PM [facility] REPOSITORY [facility] Medical Records Department [address] [place] [address] Operative Report 04/12/18 1210 MR#: [id number] Acct: [id number] Name: ARIANNA GUILLERMO Rep #: [id number] : 1940 77 From: Liam Brown MD PCP: Nicolas HOWE,Justice García Status: [facility] Location: [facility] Problem List (1) Problem with dialysis access [...] was inserted. Micropuncture wire inserted. A 6 [place] short sheath was inserted. Using carbon dioxide [...] F Source: [place] NO DIFF 10:00 AM [facility] REPOSITORY TYPE CODE TESTS RESULT OUT OF [...] MPV 10.0 Performed By: #### L100.0500 #### [facility] [address] [place], [address] BASIC METABOLIC Collected: 04/12/2018 Status: F Source: [place] PROFILE (BMP) 10:00 AM [facility] REPOSITORY TYPE CODE TESTS RESULT OUT OF [...] GAP 7 Performed By: #### L500.2500 #### [facility] [address] [place], [place], [address] SURGERY VISIT REPORT Observed: 04/10/2018 Status: F Source: [place] 3:48 PM [facility] REPOSITORY [facility] [address] [place] [address] OFFICE VISIT Date of Service: 04/10/18 MR#: [id number] Acct: [id number] Name: ARIANNA GUILLERMO Rep #: [id number] : 1940 Provider: Liam Brown MD Age/Sex: 77/M Location: [facility] Status: Signed Intake Intake Visit Reasons: [...] failure (Chronic) Sinus bradycardia (Chronic) Atherosclerosis of [place] coronary artery of [place] heart without angina pectoris (Chronic) Shortness of breath (Chronic) Atherosclerosis of [place] coronary artery of [place] heart without angina pectoris (Acute) Hypertension (Chronic) [...] 1. Problem with dialysis access, subsequent encounter T82.038D Plan Again the patient is not yet [...] F Source: [place] PROFILE (BMP) 6:45 AM [facility] REPOSITORY TYPE CODE TESTS RESULT OUT OF [...] GAP 10 Performed By: #### L500.2500 #### [facility] [address] [place], [address] CBC-COMPLETE BLOOD CNT Collected: 03/22/2018 Status: F Source: [place] NO DIFF 6:05 AM [facility] REPOSITORY Order Comment: RM:165 TYPE CODE TESTS [...] MPV 10.8 Performed By: #### L100.0500 #### [facility] [address] [place], [address] RENAL PROFILE Collected: 03/22/2018 Status: F Source: [place] 6:05 AM [facility] REPOSITORY Order Comment: RM:165 TYPE CODE TESTS [...] CO2 27.0 Performed By: #### L500.3600 #### [facility] [address] [place], [address] PTHIN Collected: 03/22/2018 Status: F Source: [place] 6:05 AM [facility] REPOSITORY Order Comment: RM:165 RT AC TYPE CODE TESTS RESULT OUT OF RANGE REFERENCE UNITS LAB L509.1000 18.4-80.1 pg/mL High PTHIN 169.9 Performed By: #### L509.1000 #### [facility] [address] [place], [address] POTASSIUM Collected: 02/25/2018 Status: F Source: [place] 5:30 AM [facility] REPOSITORY Order Comment: ROOM 165 TYPE CODE TESTS RESULT OUT OF RANGE REFERENCE UNITS LAB L501.5600 3.5-5.1 mmol/L Low K 3.1 Performed By: #### L501.5600, L500.3600 #### [facility] [address] [place], [address] RENAL PROFILE Collected: 02/25/2018 Status: F Source: [place] 5:30 AM [facility] REPOSITORY Order Comment: ROOM 165 DR LANG [...] 30.0 Performed By: #### L501.5600, L500.3600 #### [facility] [address] [facility] [address] [address] [place], [place], [address] POTASSIUM Collected: 02/22/2018 Status: F Source: [place] 5:35 AM [facility] REPOSITORY Order Comment: RM:165 TYPE CODE TESTS RESULT OUT OF RANGE REFERENCE UNITS LAB L501.5600 3.5-5.1 mmol/L Low alert K 2.5 Result Comment: Critical Result(s) Called to Radha at [facility] [place] at: 08:27:54 02/22/2018 by: Lissy Performed By: #### L501.5600 #### [facility] [address] [place], [address] CARDIOLOGY VISIT Observed: 02/20/2018 Status: F Source: [place] REPORT 6:24 PM [facility] REPOSITORY [facility] [address] [place] [address] OFFICE VISIT Date of Service: 02/20/18 MR#: [id number] Acct: [id number] Name: ARIANNA GUILLERMO Rep #: [id number] : 1940 Provider: Norris Pastrana MD Age/Sex: 77/M Location: [facility] Status: Signed HPI HPI Details: ARIANNA GUILLERMO, [...] mg PO DAILY 02/20/18 [History Confirmed 02/20/18] [facility] Medical History Fatigue (Chronic) Abnormal electrocardiogram (Chronic) Long-term use of high-risk medication (Chronic) BMI 40.0-44.9, adult (Chronic) Chest pain on exertion (Chronic) Angina pectoris (Chronic) Pulmonary hypertension (Chronic) ALY (obstructive sleep apnea) (Chronic) Abnormal nuclear stress test (Chronic) Diastolic heart failure (Chronic) Sinus bradycardia (Chronic) Atherosclerosis of [place] coronary artery of [place] heart without angina pectoris (Chronic) Shortness of breath (Chronic) Atherosclerosis of [place] coronary artery of [place] heart without angina pectoris (Acute) Hypertension (Chronic) [...] stenosis Please see official report PCI: 03/11/2015: [facility]: Successful stenting of the 75% stenosis [...] wire. Assessment AND Plan 1. Atherosclerosis of [place] coronary artery of [place] heart without angina pectoris I25.10 PCI/YESENIA to [...] Code Off vis,est,level 4 Diagnoses Atherosclerosis of [place] coronary artery of [place] heart without angina pectoris I25.10 History of angioplasty Z98.62 Hyperlipidemia E78.5 Hyperlipidemia type: unspecified hyperlipidemia Essential hypertension I10 Hypertension type: essential hypertension Long-term use of high-risk medication Z79.899 Coding Level of Care Code Off vis,est,level 4 Diagnoses Atherosclerosis of [place] coronary artery of [place] heart without angina pectoris I25.10 History of angioplasty Z98.62 Hyperlipidemia E78.5 Hyperlipidemia type: unspecified hyperlipidemia Essential hypertension I10 Hypertension type: essential hypertension Long-term use of high-risk medication Z79.899 02/20/18 1824 <Electronically signed by Norris Pastrana MD> Date Norris Pastrana MD Cosigner Signature: Date (if applicable) CC: Justice rBitt MD CBC-COMPLETE BLOOD CNT Collected: 02/20/2018 Status: F Source: [place] NO DIFF 8:10 AM [facility] REPOSITORY Order Comment: ROOM 165 TYPE CODE [...] MPV 11.0 Performed By: #### L100.0500 #### [facility] [address] [place], [address] RENAL PROFILE Collected: 02/20/2018 Status: F Source: [place] 8:10 AM [facility] REPOSITORY Order Comment: ROOM 165 TYPE CODE [...] Result(s) Called at: 10:03:24 02/20/2018 by: Jeane tejeda [facility] LAB L501.5900 98-107 mmol/L Low CL 90 LAB L501.6100 21.0-32.0 mmol/L High CO2 37.0 Performed By: #### L500.3600, L503.6075, L503.6150, L503.6550 #### [facility] [address] [place], [place], [id number] IRON BINDING Collected: 02/20/2018 Status: F [facility]:10 AM [facility] REPOSITORY Order Comment: ROOM 165 TYPE CODE TESTS RESULT OUT OF RANGE REFERENCE UNITS LAB L503.6075 250-450 ug/dL Normal TIBC 323 Performed By: #### L500.3600, L503.6075, L503.6150, L503.6550 #### [facility] [address] [place], [address] IRON Collected: 02/20/2018 Status: F Source: [place] 8:10 AM [facility] REPOSITORY Order Comment: ROOM 165 TYPE CODE TESTS RESULT OUT OF RANGE REFERENCE UNITS LAB L503.6150 65-175 ug/dL Low IRON 43 Performed By: #### L500.3600, L503.6075, L503.6150, L503.6550 #### [facility] [address] [place], [address] FERRITIN Collected: 02/20/2018 Status: F Source: [place] 8:10 AM [facility] REPOSITORY Order Comment: ROOM 165 TYPE CODE TESTS RESULT OUT OF RANGE REFERENCE UNITS LAB L503.6550 26-388 ng/mL Normal FERRITIN 77 Performed By: #### L500.3600, L503.6075, L503.6150, L503.6550 #### [facility] [address] [place], [place], [address] PTHIN Collected: 02/20/2018 Status: F Source: [place] 8:10 AM [facility] REPOSITORY Order Comment: ROOM 165 TYPE CODE TESTS RESULT OUT OF RANGE REFERENCE UNITS LAB L509.1000 18.4-80.1 pg/mL High PTHIN 268.6 Performed By: #### L509.1000 #### [facility] [address] [place], [address] SURGERY VISIT REPORT Observed: 02/12/2018 Status: F Source: [place] 1:04 PM [facility] REPOSITORY [facility] [address] [place] [address] OFFICE VISIT Date of Service: 02/12/18 MR#: [id number] Acct: [id number] Name: Arianna Guillermo Rep #: [id number] : 1940 Provider: Liam Brown MD Age/Sex: 77/M Location: [facility] Status: Signed Intake Intake Visit Reasons: 2 month f/u fistula 12/04 Chief Complaint: post fistulogram Core Mounter Required: No Is patient in pain?: No [...] F Source: [place] PROFILE (BMP) 5:45 AM [facility] REPOSITORY Order Comment: ROOM 165 TYPE CODE [...] GAP 8 Performed By: #### L500.2500 #### [facility] [address] [place], [address] CBC W/DIFF, AUTOMATED Collected: 01/30/2018 Status: F Source: [place] 6:20 AM [facility] REPOSITORY Order Comment: 165 TYPE CODE TESTS [...] Lymph 1.46 Performed By: #### L100.0100 #### [facility] [address] [place], [address] COMPREHENSIVE METABOLIC Collected: 01/30/2018 Status: F Source: [facility] 6:20 AM [facility] REPOSITORY Order Comment: 165 TYPE CODE TESTS [...] Performed By: #### L500.4050, L500.4100, L501.9520 #### [facility] [address] [place], [address] LIPID PROFILE Collected: 01/30/2018 Status: F Source: [place] 6:20 AM [facility] REPOSITORY Order Comment: 165 TYPE CODE TESTS [...] Performed By: #### L500.4050, L500.4100, L501.9520 #### [facility] [address] [place], [address] THYROID STIM HORMONE Collected: 01/30/2018 Status: F Source: [place] (TSH) 6:20 AM [facility] REPOSITORY Order Comment: 165 TYPE CODE TESTS RESULT OUT OF RANGE REFERENCE UNITS LAB L501.9520 0.358-3.74 uIU/mL Normal TSH 2.90 Performed By: #### L500.4050, L500.4100, L501.9520 #### [facility] [address] [place], [address] VITAMIN D,25 HYDROXY Collected: 01/30/2018 Status: F Source: [place] 6:20 AM [facility] REPOSITORY Order Comment: 165 TYPE CODE TESTS RESULT OUT OF RANGE REFERENCE UNITS LAB L506.1000 29.95-100.01 ng/mL Normal Vitamin D 47.4 25-OH Result Comment: Vitamin D 25(OH) Status Range Deficiency <20 ng/mL (50nmol/L) Insuffciency 20 - 30 ng/mL (50 - 75 nmol/L) Sufficiency 30 - 100 ng/mL (75 - 250 nmol/L) Toxicity >100 ng/mL (>250 nmol/L) Performed By: #### L506.1000 #### [facility] [address] [place], [address] RENAL PROFILE Collected: 01/10/2018 Status: F Source: [place] 2:51 PM [facility] REPOSITORY TYPE CODE TESTS RESULT OUT OF [...] CO2 25.0 Performed By: #### L500.3600 #### [facility] [address] [place], [address] CBC-COMPLETE BLOOD CNT Collected: 01/10/2018 Status: F Source: [place] NO DIFF 2:51 PM [facility] REPOSITORY TYPE CODE TESTS RESULT OUT OF [...] MPV 12.1 Performed By: #### L100.0500 #### [facility] [address], [place], [id number] PTHIN Collected: 01/10/2018 Status: F Source: [place] 2:51 PM [facility] REPOSITORY TYPE CODE TESTS RESULT OUT OF RANGE REFERENCE UNITS LAB L509.1000 18.4-80.1 pg/mL High PTHIN 244.1 Performed By: #### L509.1000 #### [facility] [address] [place], [place], [id number] CBC W/DIFF, AUTOMATED Collected: 12/21/2017 Status: F Source: [place] 12:03 PM [facility] REPOSITORY TYPE CODE TESTS RESULT OUT OF [...] Lymph 1.20 Performed By: #### L100.0100 #### [facility] [address] [place], [place], [address] COMPREHENSIVE METABOLIC Collected: 12/21/2017 Status: F Source: [place] [facility] 12:03 PM [facility] REPOSITORY TYPE CODE TESTS RESULT OUT OF [...] Performed By: #### L500.4050, L501.1400, L501.9520 #### [facility] [address] [place], [address] URIC ACID Collected: 12/21/2017 Status: F Source: [place] 12:03 PM [facility] REPOSITORY TYPE CODE TESTS RESULT OUT OF RANGE REFERENCE UNITS LAB L501.1400 3.5-7.2 mg/dL Normal URIC 4.5 Result Comment: The drugs N-Acetylcysteine and Metamizole may falsely depress this assay. Performed By: #### L500.4050, L501.1400, L501.9520 #### [facility] [address] [place], [address] THYROID STIM HORMONE Collected: 12/21/2017 Status: F Source: [place] (TSH) 12:03 PM [facility] REPOSITORY TYPE CODE TESTS RESULT OUT OF RANGE REFERENCE UNITS LAB L501.9520 0.358-3.74 uIU/mL High TSH 4.46 Performed By: #### L500.4050, L501.1400, L501.9520 #### [facility] [address] [place], [address] VITAMIN D,25 HYDROXY Collected: 12/21/2017 Status: F Source: [place] 12:03 PM [facility] REPOSITORY TYPE CODE TESTS RESULT OUT OF REFERENCE UNITS RANGE LAB L506.1000 29.95-100.01 ng/mL Low Vitamin D 28.0 25-OH Result Comment: Vitamin D 25(OH) Status Range Deficiency <20 ng/mL (50nmol/L) Insuffciency 20 - 30 ng/mL (50 - 75 nmol/L) Sufficiency 30 - 100 ng/mL (75 - 250 nmol/L) Toxicity >100 ng/mL (>250 nmol/L) Performed By: #### L506.1000 #### [facility] [address] [place], [place], [address] SURGERY VISIT REPORT Observed: 12/11/2017 Status: F Source: [place] 2:26 PM [facility] REPOSITORY [facility] [address] [place] [address] OFFICE VISIT Date of Service: 12/11/17 MR#: [id number] Acct: [id number] Name: ARIANNA GUILLERMO Rep #: [id number] : 1940 Provider: Jaylin New PA-C Age/Sex: 77/M Location: [facility] Status: Signed Intake Intake Visit Reasons: Suture Removal Fistula 12/04 Chief Complaint: post fistulogram Core Mounter Required: No Is patient in pain?: No [...] PO DAILY tab 09/13/17 [History Confirmed 12/11/17] [facility] Medical History Fatigue (Chronic) Abnormal electrocardiogram (Chronic) Long-term use of high-risk medication (Chronic) BMI 40.0-44.9, adult (Chronic) Chest pain on exertion (Chronic) Angina pectoris (Chronic) Pulmonary hypertension (Chronic) ALY (obstructive sleep apnea) (Chronic) Abnormal nuclear stress test (Chronic) Diastolic heart failure (Chronic) Sinus bradycardia (Chronic) Atherosclerosis of [place] coronary artery of [place] heart without angina pectoris (Chronic) Shortness of breath (Chronic) Atherosclerosis of [place] coronary artery of [place] heart without angina pectoris (Acute) Hypertension (Chronic) [...] on dialysis. Dr. Lang is his supervisor pre wave. Exam Const General: cooperative, healthy appearing, comfortable, [...] OPERATIVE REPORT Observed: 12/05/2017 Status: F Source: [place] 6:18 AM [facility] REPOSITORY [facility] Medical Records Department [address] [place] [address] Operative Report 12/04/17 1220 MR#: [id number] Acct: [id number] Name: ARIANNA GUILLERMO Rep #: [id number] : 1940 77 From: Liam Brown MD PCP: Nicolas HOWE,Justice García Status: REG [facility] Location: [facility] Problem List (1) Problem with dialysis access [...] Micropuncture needle inserted. Micropuncture wire inserted. 6 Anguillan short sheath dilator inserted. Using an angled Glidewire and 4 Anguillan angled glide cath [place] was gained to the radial artery proximal [...] 11/13/2017 Status: F Source: [place] 1:29 PM [facility] REPOSITORY TYPE CODE TESTS RESULT OUT OF [...] CO2 28.0 Performed By: #### L500.3600 #### [facility] [address] [place], [address] CBC-COMPLETE BLOOD CNT Collected: 11/13/2017 Status: F Source: [place] NO DIFF 1:29 PM [facility] REPOSITORY TYPE CODE TESTS RESULT OUT OF [...] MPV 11.2 Performed By: #### L100.0500 #### [facility] [address] [facility] [place], [place], [address] VITAMIN D,25 HYDROXY Collected: 11/13/2017 Status: F Source: [place] 1:29 PM [facility] REPOSITORY TYPE CODE TESTS RESULT OUT OF RANGE REFERENCE UNITS LAB L506.1000 29.95-100.01 ng/mL Normal Vitamin D 33.1 25-OH Result Comment: Vitamin D 25(OH) Status Range Deficiency <20 ng/mL (50nmol/L) Insuffciency 20 - 30 ng/mL (50 - 75 nmol/L) Sufficiency 30 - 100 ng/mL (75 - 250 nmol/L) Toxicity >100 ng/mL (>250 nmol/L) Performed By: #### L506.1000 #### [facility] [address] [place], [place], [address] PTHIN Collected: 11/13/2017 Status: F Source: [place] 1:29 PM [facility] REPOSITORY TYPE CODE TESTS RESULT OUT OF RANGE REFERENCE UNITS LAB L509.1000 18.4-80.1 pg/mL High PTHIN 205.2 Performed By: #### L509.1000 #### [facility] [address] [facility] [place], [address] SURGERY VISIT REPORT Observed: 11/13/2017 Status: F Source: [place] 9:57 AM [facility] REPOSITORY [facility] [address] [place] [address] OFFICE VISIT Date of Service: 11/12/17 MR#: [id number] Acct: [id number] Name: ARIANNA GUILLERMO Rep #: [id number] : 1940 Provider: Jaylin New PA-C Age/Sex: 77/M Location: [facility] Status: Signed Intake Vital Signs11/12/17 Height 5 ft 7 in 11/12/17 Weight: 264 lb Intake Visit Reasons: F/U RC 07/27 Fistulagram Chief Complaint: post fistulogram Core Mounter Required: No Is patient in pain?: No [...] PO DAILY tab 09/13/17 [History Confirmed 11/12/17] [facility] Medical History Fatigue (Chronic) Abnormal electrocardiogram (Chronic) Long-term use of high-risk medication (Chronic) BMI 40.0-44.9, adult (Chronic) Chest pain on exertion (Chronic) Angina pectoris (Chronic) Pulmonary hypertension (Chronic) ALY (obstructive sleep apnea) (Chronic) Abnormal nuclear stress test (Chronic) Diastolic heart failure (Chronic) Sinus bradycardia (Chronic) Atherosclerosis of [place] coronary artery of [place] heart without angina pectoris (Chronic) Shortness of breath (Chronic) Atherosclerosis of [place] coronary artery of [place] heart without angina pectoris (Acute) Hypertension (Chronic) [...] dialysis currently. Dr. Lang is his supervisor pre wave. Patient has a transposition left forearm cephalic [...] cooperative, healthy appearing, comfortable, no acute distress [facility] Head: normal to inspection Eyes General: appearance [...] 1. Problem with dialysis access, initial encounter T82.226P Plan Dr. Brown will plan to perform a left forearm AV fistulogram with possible intervention. Procedure details, risks and benefits have been explained to the patient. Patient has had the opportunity to ask and have questions answered. Patient verbally understands and agrees with the plan. Coding Level of Care Code Off vis,est,level 3 Diagnoses Problem with dialysis access, initial encounter T82.512Y Encounter type: initial encounter 11/13/17 0957 <Electronically signed by Jaylin New PA-C> Date Jaylin New PA-C Cosigner Signature: Date (if applicable) CC: Luann Lang DO INITAL EVALUATION (1) Observed: 09/20/2017 Status: F Source: [place] Dobson PT 9:20 AM [facility] REPOSITORY [facility] [address] [place] [address]. [address] [place], [place] [address] Fax REHABILITATION SERVICES INITIAL EVALUATION MR#: [id number] Acct: [id number] Name: ARIANNA GUILLERMO Maryann Rep #: [id number] : 1940 77 From: Barry Roche PT, Cert. MDT, OCS Referring Dr.: Justice Britt MD Status: REG RCR Insurance: MEDICARE PART A B ANTHEM Patient's Visit Information ARIANNA GUILLERMO is a 77 year old M referred to Physical Therapy by Justice Britt with a diagnosis of R hip OA, gait difficulty. Date of Evaluation: 09/18/17 Physical Therapist: Barry Roche, PT, - Visit Plan Frequency: 2x /Week Duration: 4 Weeks Plan: Stretching to improve R hip extension. Strengthening to improve R hip abduction and general LE strength. Nustep for general conditioning. Modalities PRN. Hx: B JAREN, R TKA, Lumbar fusion (unkown DOS). - Subjective Subjective: This 77 y/o male ppresents to physical therapy wth lateral hip pain.Pt is a poor historian. [...] to be FAXED BACK to us at [phone] for Medicare purposes. Please let me know [...] Status: F Source: [place] GFR 11:50 AM [facility] REPOSITORY TYPE CODE TESTS RESULT OUT OF [...] GFR Calc Performed By: #### L501.1105 #### [facility] [address] [place], [place], [address] PROTEIN, URINE 24HR Collected: 09/14/2017 Status: F Source: [place] 11:50 AM [facility] REPOSITORY TYPE CODE TESTS RESULT OUT OF RANGE REFERENCE UNITS LAB L501.1850 24.0 HOURS Normal UR COLLECT 24.0 TIME LAB L501.1875 mL Normal UR TOTAL 1400 VOLUME LAB L501.1900 <11.9 mg/dL High URINE PROTEIN 67.9 LAB L501.1925 <150 MG/24HR mg/24HR High 24hr UR 950.6 PROTEIN Performed By: #### L500.9000 #### [facility] [address] [place], [address] 24 HR UR CREATININE Collected: 09/14/2017 Status: F Source: [place] CLEARANCE 11:50 AM [facility] REPOSITORY TYPE CODE TESTS RESULT OUT OF [...] CLEARANCE 22 Performed By: #### L500.4507 #### [facility] [address] [place], [address] HIP 2-3 VIEWS WITH Observed: 09/11/2017 Status: F Source: [place] PELVIS 3:36 PM [facility] REPOSITORY [facility] Imaging Services [address] [facility] [place] [address] Hip 2-3 Views with Pelvis MR#: [id number] Acct: [id number] Name: ARIANNA GUILLERMO Rep #: [id number] : 1940 M 77 From: Juan Jose Dewitt MD PCP: Nicolas HOWE,Justice García Status: REG CLI Study: Hip 2-3 Views with Pelvis Date of Exam: 09/11/17 Exam# [id number] Ordering Dr: Justice Britt MD STUDY: X-RAY [...] Service support , CC: Justice Britt MD Mortuary Technician: Signed CBC W/DIFF, AUTOMATED Collected: 09/11/2017 Status: F Source: [place] 1:34 PM [facility] REPOSITORY Order Comment: DR BRITT ORDERED VITD [...] Lymph 1.11 Performed By: #### L100.0100 #### [facility] [place], [address] COMPREHENSIVE METABOLIC Collected: 09/11/2017 Status: F Source: [facility] 1:34 PM [facility] REPOSITORY Order Comment: DR BRITT ORDERED VITD [...] By: #### L500.4050, L501.1400, L501.2300, L501.9520 #### [facility] [address] [facility] [place], [address] URIC ACID Collected: 09/11/2017 Status: F Source: [place] 1:34 PM [facility] REPOSITORY Order Comment: DR BRITT ORDERED VITD CMP URIC ACID TSH CBCD DR LANG ORDERED RENAL CBC PTH TYPE CODE TESTS RESULT OUT OF RANGE REFERENCE UNITS LAB L501.1400 3.5-7.2 mg/dL Normal URIC 3.8 Result Comment: The drugs N-Acetylcysteine and Metamizole may falsely depress this assay. Performed By: #### L500.4050, L501.1400, L501.2300, L501.9520 #### [facility] [address] [place], [address] PHOSPHORUS Collected: 09/11/2017 Status: F Source: [place] 1:34 PM [facility] REPOSITORY Order Comment: DR BRITT ORDERED VITD CMP URIC ACID TSH CBCD DR LANG ORDERED RENAL CBC PTH TYPE CODE TESTS RESULT OUT OF RANGE REFERENCE UNITS LAB L501.2300 2.5-4.9 mg/dL Normal PHOS 3.0 Performed By: #### L500.4050, L501.1400, L501.2300, L501.9520 #### [facility] [address] [place], [address] THYROID STIM HORMONE Collected: 09/11/2017 Status: F Source: [place] (TSH) 1:34 PM [facility] REPOSITORY Order Comment: DR BRITT ORDERED VITD CMP URIC ACID TSH CBCD DR LANG ORDERED RENAL CBC PTH TYPE CODE TESTS RESULT OUT OF RANGE REFERENCE UNITS LAB L501.9520 0.358-3.74 uIU/mL Normal TSH 2.90 Performed By: #### L500.4050, L501.1400, L501.2300, L501.9520 #### [facility] [address] [place], [address] PTHIN Collected: 09/11/2017 Status: F Source: [place] 1:34 PM [facility] REPOSITORY Order Comment: DR BRITT ORDERED VITD CMP URIC ACID TSH CBCD DR LANG ORDERED RENAL CBC PTH TYPE CODE TESTS RESULT OUT OF RANGE REFERENCE UNITS LAB L509.1000 18.4-80.1 pg/mL High PTHIN 182.1 Performed By: #### L509.1000 #### [facility] [address] [place], [address] VITAMIN D,25 HYDROXY Collected: 09/11/2017 Status: F Source: [place] 1:34 PM [facility] REPOSITORY Order Comment: DR BRITT ORDERED VITD [...] (>250 nmol/L) Performed By: #### L506.1000 #### [facility] [address] [place], [address] SURGERY VISIT REPORT Observed: 08/30/2017 Status: F Source: [place] 1:45 PM [facility] REPOSITORY [facility] [address] [place] [address] OFFICE VISIT Date of Service: 08/30/17 MR#: [id number] Acct: [id number] Name: ARIANNA GUILLERMO Rep #: [id number] : 1940 Provider: Jaylin New PA-C Age/Sex: 77/M Location: [facility] Status: Signed Intake Intake Visit Reasons: F/U RC 07/27 FISTULAGRAM Chief Complaint: post fistulogram Core Mounter Required: No Is patient in pain?: No [...] [History Confirmed 08/30/17] Fluticasone 0.05% [Flonase Nasal Chinle] 1 spray NASAL DAILY PRN 05/07/17 [History [...] INHALATION Q8H PRN 08/30/17 [History Confirmed 08/30/17] [facility] Medical History Fatigue (Chronic) Abnormal electrocardiogram (Chronic) Long-term use of high-risk medication (Chronic) BMI 40.0-44.9, adult (Chronic) Chest pain on exertion (Chronic) Angina pectoris (Chronic) Pulmonary hypertension (Chronic) ALY (obstructive sleep apnea) (Chronic) Abnormal nuclear stress test (Chronic) Diastolic heart failure (Chronic) Sinus bradycardia (Chronic) Atherosclerosis of [place] coronary artery of [place] heart without angina pectoris (Chronic) Shortness of breath (Chronic) Atherosclerosis of [place] coronary artery of [place] heart without angina pectoris (Acute) Hypertension (Chronic) [...] dialysis currently. Dr. Lang is his supervisor pre wave. Patient has a transposition left forearm cephalic [...] signed by Jaylin New PA-C> Date Jaylin Padgettignjorje Signature: Date (if applicable) CC: VENOUS DUPLEX LOWER Observed: 08/27/2017 Status: F Source: [place] EXTREMITY 10:05 PM [facility] REPOSITORY [facility] Cardiovascular Services [address] [place] [address] Venous Duplex US - Rambo Extrem 08/27/17 1554 MR#: [id number] Acct: [id number] Name: ARIANNA GUILLERMO Rep #: [id number] : 1940 77 From: Pravin Akers MD Attending Dr: Justice [...] to DR. Britt @ 4:20 pm @ [phone]. Interpretation Summary Deep veins of the lower [...] Referring Physician: Justice Britt Chi Performed By: Solomon, Amanda, RDCS, RVT 08/27/172203 Date Pravin Akers MD CC: Justice Britt MD Date Dictated: 08/27/171553 Date Transcribed: 08/27/172203 Mortuary Technician: Signed ABDOMEN SINGLE VIEW Observed: 08/27/2017 Status: F Source: [place] 3:34 PM [facility] REPOSITORY [facility] Imaging Services [address] [place] [address] Abdomen Single View MR#: [id number] Acct: [id number] Name: ARIANNA GUILLERMO Rep #: [id number] : 1940 M 77 From: Karthikeyan Pacheco MD PCP: Justice Britt MD, Chi Status: REG CLI Study: Abdomen Single View Date of Exam: 08/27/17 Exam# [id number] Ordering Dr: Justice Britt MD STUDY: X-RAY [...] Service support , CC: Justice Britt MD Mortuary Technician: Signed BASIC METABOLIC Collected: 08/27/2017 Status: F Source: [place] PROFILE (BMP) 3:13 PM [facility] REPOSITORY TYPE CODE TESTS RESULT OUT OF [...] GAP 8 Performed By: #### L500.2500 #### [facility] [address] [place], [address] CBC W/DIFF, AUTOMATED Collected: 08/27/2017 Status: F Source: [place] 3:13 PM [facility] REPOSITORY TYPE CODE TESTS RESULT OUT OF [...] Lymph 1.33 Performed By: #### L100.0100 #### [facility] [address] [facility] [place], [place], [address] SURGERY VISIT REPORT Observed: 08/02/2017 Status: F Source: [place] 1:55 PM [facility] REPOSITORY [facility] [address] [facility] [address] [place], [place] [address] OFFICE VISIT Date of Service: 08/02/17 MR#: [id number] Acct: [id number] Name: ARIANNA GUILLERMO Rep #: [id number] : 1940 Provider: Jaylin New PA-C Age/Sex: 76/M Location: [facility] Status: Signed Intake Intake Visit Reasons: F/U RC 07/27 FISTULA GRAM AND SUTURE REMOVAL Chief Complaint: post fistulogram Core Mounter Required: No Is patient in pain?: No [...] [History Confirmed 07/26/17] Fluticasone 0.05% [Flonase Nasal [place]] 1 spray NASAL DAILY PRN 05/07/17 [History [...] Confirmed 07/26/17] [facility] Medical History Atherosclerosis of [place] coronary artery of [place] heart without angina pectoris (Acute) Hypertension (Chronic) [...] does not use HPI HPI HPI: ARIANNA UGILLERMO, is a 76 M I am following [...] created arteriovenous shunt for hemodialysis Z99.2 08/02/17 3343 <Electronically signed by Jaylin New PA-C> Date Jaylin New PA-C Cosigner Signature: Date (if applicable) CC: OPERATIVE REPORT Observed: 07/27/2017 Status: F Source: [place] 12:14 PM [facility] REPOSITORY [facility] Medical Records Department [address] [place] [address] Operative Report 07/27/17 1210 MR#: [id number] Acct: [id number] Name: ARIANNA GUILLERMO Rep #: [id number] : 1940 76 From: Liam Brown MD PCP: Nicolas HOWE,Justice García Status: REG SD Y Location: [facility] Problem List (1) Presence of surgically created [...] advance the micropuncture wire then up 6 Anguillan short sheath dilator. Using then a 4 Anguillan angled glide cath and an 035 angled Glidewire and gained access to the radial artery proximal to the anastomosis. I advanced a 4 Anguillan angled glide cath. Using carbon dioxide obtained [...] I removed the balloon reinserted the 4 Anguillan angled glide cath reobtained official gram of [...] MD Signed Observed: 07/24/2017 Status: F Source: [place] RESPIRATORY PANEL 2:13 PM [facility] MOLECULAR REPOSITORY RP PANEL Normal Reference Range = Not Detected Copy of report sent to Infection Control Printer [id number] 07/25/17 0343 Gdd [employer]. RESULTS CALLED TO /NURSE LINE 07/25/17 1056 Francy Greer. ADENOVIRUS Not Detected HUMAN METAPHNEUMO [...] HUMAN META Performed By: #### M100.638 #### [facility] [place], [address] CBC-COMPLETE BLOOD CNT Collected: 07/16/2017 Status: F Source: [place] NO DIFF 1:43 PM [facility] REPOSITORY TYPE CODE TESTS RESULT OUT OF [...] MPV 10.7 Performed By: #### L100.0500 #### [facility] [address] [place], [address] BASIC METABOLIC Collected: 07/16/2017 Status: F Source: ANDREA PROFILE (BMP) 1:43 PM [facility] REPOSITORY TYPE CODE TESTS RESULT OUT OF [...] GAP 8 Performed By: #### L500.2500 #### [facility] [address] [place], [address] SURGERY VISIT REPORT Observed: 07/10/2017 Status: F Source: GUNNISON 2:28 PM [facility] REPOSITORY [facility] [address] [place] [address] OFFICE VISIT Date of Service: 07/10/17 MR#: [id number] Acct: [id number] Name: ARIANNA GUILLERMO Maryann Rep #: [id number] : 1940 Provider: Jaylin New PA-C Age/Sex: 76/M Location: [facility] Status: Signed Intake Vital Signs07/10/17 Height 5 ft 7 in 07/10/17 Weight: 300 lb 07/10/17 Body Mass Index (BMI) 47.0 Intake Visit Reasons: 2 weeks post op Core Mounter Required: No Is patient in pain?: No [...] [History Confirmed 07/10/17] Fluticasone 0.05% [Flonase Nasal Chinle] 1 spray NASAL DAILY PRN 05/07/17 [History [...] DAILY #90 tab 06/12/17 [Rx Confirmed 07/10/17] [facility] Medical History Atherosclerosis of [place] coronary artery of [place] heart without angina pectoris (Acute) Hypertension (Chronic) [...] on dialysis. Dr. Lang is his supervisor pre wave. He will follow-up with Dr. Lang next [...] 1. Problem with dialysis access, initial encounter T82.287Z Plan - Dr. Brown will plan to [...] Diagnoses Problem with dialysis access, initial encounter T82.120M Encounter type: initial encounter 07/10/17 1428 <Electronically signed by Jaylin New PA-C> Date Jaylin New PA-C Cosigner Signature: Date (if applicable) CC: VENOUS DUPLEX UPPER Observed: 06/29/2017 Status: F Source: ANDREA EXTREMITY 9:37 PM [facility] REPOSITORY [facility] Cardiovascular Services [address] [facility] [place] [address] Venous Duplex - Rambo Extrem 06/29/17 1028 MR#: [id number] Acct: [id number] Name: ARIANNA GUILLERMO Rep #: [id number] : 1940 76 From: Pravin Akers MD [...] Justice Britt Chi Performed By: Poly Mcdonough, MAYELA, RVT 06/29/17 2136 Date Pravin Akers MD CC: Justice Britt MD Date Dictated: 06/29/17 1028 Date Transcribed: 06/29/172135 Mortuary Technician: Signed THORACIC SPINE 3 Observed: 06/28/2017 Status: F Source: ANDREA VIEWS 5:12 PM [facility] REPOSITORY [facility] Imaging Services [address] [place] [address] Thoracic Spine 3 Views MR#: [id number] Acct: [id number] Name: ARIANNA GUILLERMO Rep #: [id number] : 1940 M 76 From: Danie Vergara DO PCP: Justice Britt MD, Chi Status: REG CLI Study: Thoracic Spine 3 Views Date of Exam: 06/28/17 Exam# [id number] Ordering Dr: Justice Britt MD STUDY: X-RAY [...] Danie Vergara DO at 18:14 EST Tel [phone], Service support , CC: Justice Britt MD Mortuary Technician: Signed CBC W/DIFF, AUTOMATED Collected: 06/28/2017 Status: F Source: ANDREA 4:22 PM [facility] REPOSITORY TYPE CODE TESTS RESULT OUT OF [...] Lymph 1.40 Performed By: #### L100.0100 #### [facility] [address] [place], [place], [address] BASIC METABOLIC Collected: 06/28/2017 Status: F Source: GUNNISON PROFILE ([facility]) 4:22 PM [facility] REPOSITORY TYPE CODE TESTS RESULT OUT OF [...] 9 GAP Performed By: #### L500.2500 #### [facility] [address] [place], [place], [address] RIBS UNI MIN 3V Observed: 06/25/2017 Status: F Source: GUNNISON W/PA CHEST 10:37 AM [facility] REPOSITORY [facility] Imaging Services [address] [place] [address] Ribs Uni Min 3V w/PA Chest MR#: [id number] Acct: [id number] Name: ARIANNA GUILLERMO Rep #: [id number] : 1940 M 76 From: Seng Verde MD PCP: Nicolas HOWE,Justice Chi Status: REG CLI Study: Ribs Uni Min 3V w/PA Chest Date of Exam: 06/25/17 Exam# [id number] Ordering Dr: Justice Britt MD STUDY: X-RAY [...] Service support , CC: Justice Britt MD Mortuary Technician: Signed SURGERY VISIT REPORT Observed: 06/19/2017 Status: F Source: GUNNISON 4:31 PM [facility] [address] [place] [address] OFFICE VISIT Date of Service: 06/19/17 MR#: [id number] Acct: [id number] Name: ARIANNA GUILLERMO Rep #: [id number] : 1940 Provider: Jaylin New PA-C Age/Sex: 76/M Location: [facility] Status: Signed Intake Intake Visit Reasons: F/U FISTULA/ARM SWELLING Core Mounter Required: No Is patient in pain?: No [...] [History Confirmed 06/19/17] Fluticasone 0.05% [Flonase Nasal Chin[place]] 1 spray NASAL DAILY PRN 05/07/17 [History [...] DAILY #90 tab 06/12/17 [Rx Confirmed 06/19/17] [facility] Medical History Atherosclerosis of [place] coronary artery of [place] heart without angina pectoris (Acute) Hypertension (Chronic) [...] has not been back to the supervisor pre wave office. Patient notes he does not return [...] by Jaylin New PA-C> Date Jaylin Virgen Cortes Signature: Date (if applicable) CC: BASIC METABOLIC Collected: 06/18/2017 Status: F Source: ANDREA PROFILE (BMP) 10:43 AM [facility] REPOSITORY TYPE CODE TESTS RESULT OUT OF [...] GAP 7 Performed By: #### L500.2500 #### [facility] [address], [address] Observed: 06/14/2017 Status: F Source: ANDREA RESPIRATORY PANEL 12:25 PM [facility] MOLECULAR REPOSITORY Copy of report sent to Infection Control Printer MS#[id number] 06/15/17 0632 LSBE. RP PANEL Normal Reference Range = Not Detected RESULTS CALLED TO DR BRITT NURSE LINE 06/15/17 6440 Casie Chawla. REPORT READ BACK BY VOICE [...] INFLUENZAE B Performed By: #### M100.638 #### [facility] [address] [place], [address] CBC W/DIFF, AUTOMATED Collected: 06/11/2017 Status: F Source: GUNNISON 4:23 PM [facility] REPOSITORY TYPE CODE TESTS RESULT OUT OF [...] Lymph 1.36 Performed By: #### L100.0100 #### [facility] [address] [place], [place], [address] COMPREHENSIVE METABOLIC Collected: 06/11/2017 Status: F Source: [facility] 4:23 PM [facility] REPOSITORY TYPE CODE TESTS RESULT OUT OF [...] Performed By: #### L500.4050, L501.1400, L501.9520 #### [facility] [address] [place], [address] URIC ACID Collected: 06/11/2017 Status: F Source: GUNNISON 4:23 PM [facility] REPOSITORY TYPE CODE TESTS RESULT OUT OF RANGE REFERENCE UNITS LAB L501.1400 3.5-7.2 mg/dL Normal URIC 3.7 Result Comment: The drugs N-Acetylcysteine and Metamizole may falsely depress this assay. Performed By: #### L500.4050, L501.1400, L501.9520 #### [facility] [address] [place], [place], [address] THYROID STIM HORMONE Collected: 06/11/2017 Status: F Source: GUNNISON (TSH) 4:23 PM [facility] REPOSITORY TYPE CODE TESTS RESULT OUT OF RANGE REFERENCE UNITS LAB L501.9520 0.358-3.74 uIU/mL Normal TSH 1.63 Performed By: #### L500.4050, L501.1400, L501.9520 #### [facility] [address] [place], [place], [address] CBC W/DIFF, AUTOMATED Collected: 06/07/2017 Status: F Source: GUNNISON 5:44 PM [facility] REPOSITORY TYPE CODE TESTS RESULT OUT OF [...] Lymph 1.04 Performed By: #### L100.0100 #### [facility] [address] [place], [place], [address] D-DIMER QUANTITATIVE Collected: 06/07/2017 Status: F Source: GUNNISON (DVT/PE) 5:44 PM [facility] REPOSITORY TYPE CODE TESTS RESULT OUT OF RANGE REFERENCE UNITS LAB L300.8000 0.27-0.49 FEU/ug/m High alert D-DIMER 1.38 QUANT Result Comment: RESULTS CALLED TO 06/07/17 1840 Shankar Pulido. REPORT READ BACK BY SAME . D-Dimer ELEVATED (>0.49): Additional studies and clinical assessments are indicated to conclude diagnosis of: Deep Vein Thrombosis (DVT) or Pulmonary Embolism (PE) Performed By: #### L300.8000 #### [facility] [address] [place], [address] COMPREHENSIVE METABOLIC Collected: 06/07/2017 Status: F Source: ANDREA BEST 5:44 PM [facility] REPOSITORY TYPE CODE TESTS RESULT OUT OF [...] By: #### L500.4050, L501.2300, L501.5200, L501.9520 #### [facility] [address] [place], [address] PHOSPHORUS Collected: 06/07/2017 Status: F Source: ANDREA 5:44 PM [facility] REPOSITORY TYPE CODE TESTS RESULT OUT OF RANGE REFERENCE UNITS LAB L501.2300 2.5-4.9 mg/dL Normal PHOS 3.8 Performed By: #### L500.4050, L501.2300, L501.5200, L501.9520 #### [facility] [address] [place], [address] MAGNESIUM Collected: 06/07/2017 Status: F Source: ANDREA 5:44 PM [facility] REPOSITORY TYPE CODE TESTS RESULT OUT OF RANGE REFERENCE UNITS LAB L501.5200 1.6-2.6 mg/dL Normal MG 2.4 Result Comment: Please note revised Magnesium reference range effective 2017. Performed By: #### L500.4050, L501.2300, L501.5200, L501.9520 #### [facility] [address] [place], [address] THYROID STIM HORMONE Collected: 06/07/2017 Status: F Source: ANDREA (TSH) 5:44 PM [facility] REPOSITORY TYPE CODE TESTS RESULT OUT OF RANGE REFERENCE UNITS LAB L501.9520 0.358-3.74 uIU/mL Normal TSH 2.14 Performed By: #### L500.4050, L501.2300, L501.5200, L501.9520 #### [facility] [address] [place], [address] BNP,B-TYPE NATRIURETIC Collected: 06/07/2017 Status: F Source: ANDREA PEPTIDE 5:44 PM [facility] REPOSITORY TYPE CODE TESTS RESULT OUT OF RANGE REFERENCE UNITS LAB L503.6620 0-100 pg/mL High B-TYPE 254.3 SERINA PEP Performed By: #### L503.6620 #### [facility] [address] [place], [address] Observed: 06/07/2017 Status: F Source: GUNNISON CULTURE, URINE 5:44 PM [facility] REPOSITORY Urine Culture ORGANISM 1: Enterococcus faecalis [place] Count 11,000-25,000 Enterococcus faecalis: REACTION Ampicillin $ <=2 S Benzylpenicillin NF 8 S Ciprofloxacin $ >=8 R Gentamicin SYN-R R Levofloxacin $ >=8 R Linezolid $$$$ 1 S Nitrofurantoin $ <=16 S Streptomycin $ SYN-S S Tetracycline NF >=16 R Vancomycin $ 1 S (NF) indicates non-formulary drug at [facility]. Approval by Infectious Disease Specialist required before non-formulary drugs may be ordered and/or dispensed. * CLSI guidelines does not recommend testing of cephalosporins. This interpretation is deduced from Beta-lactam/penicillin results. Performed By: #### M100.0650 #### [facility] [address] [place], [address] ABD INC DECUB Observed: 06/07/2017 Status: F Source: ANDREA AND/OR ERECT 5:21 PM [facility] REPOSITORY [facility] Imaging Services [address] [facility] [place] [address] Abd Inc Decub and/or Erect MR#: [id number] Acct: [id number] Name: ARIANNA GUILLERMO Rep #: [id number] : 1940 M 76 From: Jane Strickland MD PCP: Justice Britt MD, Chi Status: REG CLI Study: Abd Inc Decub and/or Erect Date of Exam: 06/07/17 Exam# [id number] Ordering Dr: Justice Britt MD STUDY: X-RAY [...] Service support , CC: Justice Britt MD Mortuary Technician: Signed CHEST PA AND LATERAL Observed: 06/07/2017 Status: F Source: GUNNISON 5:21 PM [facility] REPOSITORY [facility] Imaging Services [address] [place] [address] Chest PA and Lateral MR#: [id number] Acct: [id number] Name: ARIANNA GUILLERMO Rep #: [id number] : 1940 76 From: Jane Strickland MD PCP: Justice Britt MD, Chi Status: REG CLI Study: Chest PA and Lateral Date of Exam: 06/07/17 Exam# [id number] Ordering Dr: Justice Britt MD STUDY: X-RAY [...] Service support , CC: Justice Britt MD Mortuary Technician: Signed BRAIN/HEAD WITHOUT Observed: 06/07/2017 Status: F Source: GUNNISON CONTRAST 5:16 PM [facility] REPOSITORY [facility] Imaging Services [facility] [place] [address] Brain/Head without Contrast MR#: [id number] Acct: [id number] Name: ARIANNA GUILLERMO Rep #: [id number] : 1940 M 76 From: Danie Vergara DO PCP: Justice Britt MD, Chi Status: REG CLI Study: Brain/Head without Contrast Date of Exam: 06/07/17 Exam# [id number] Ordering Dr: Justice Britt MD STUDY: CT [...] Danie Vergara DO at 17:42 EST Tel [phone], Service support , CC: Justice Britt MD Mortuary Technician: Signed SURGERY VISIT REPORT Observed: 06/05/2017 Status: F Source: GUNNISON 1:41 PM [facility] REPOSITORY [facility] [address] [place] [address] [place] [address] OFFICE VISIT Date of Service: 06/05/17 MR#: [id number] Acct: [id number] Name: ARIANNA GUILLERMO Rep #: [id number] : 1940 Provider: Jaylin New PA-C Age/Sex: 76/M Location: [facility] Status: Signed Intake Intake Visit Reasons: F/U FISTULA/ARM SWELLING Core Mounter Required: No Is patient in pain?: No [...] [History Confirmed 06/05/17] Fluticasone 0.05% [Flonase Nasal Chin[place]] 1 spray NASAL DAILY PRN 05/07/17 [History [...] PO QDAY cap 05/09/17 [History Confirmed 06/05/17] [facility] Medical History Atherosclerosis of [place] coronary artery of [place] heart without angina pectoris (Acute) Hypertension (Chronic) [...] they have an appointment with the supervisor pre wave next week. Exam Extrem Other: left forearm [...] DUPLEX LOWER Observed: 05/31/2017 Status: F Source: GUNNISON EXTREMITY 5:33 PM [facility] REPOSITORY [facility] Cardiovascular Services [address] [place] [address] Venous Duplex - Rambo Extrem 05/31/17 1329 MR#: [id number] Acct: [id number] Name: ARIANNA GUILLERMO Rep #: [id number] : 1940 76 From: Pravin Akers MD Attending Dr: Nicolas HOWE,Justice García Status: REG CLI Ordering Dr: Justice Britt MD Date: 05/31/17 Location: [facility] Sex: M C Admitted: Reason For Study: [...] Britt Performed By: Obi Valentin, RVT 05/31/17 1733 Date Pravin Akers MD CC: Justice Britt MD Date Dictated: 05/31/17 1329 Date Transcribed: 05/31/17 173 Mortuary Technician: Signed CBC W/DIFF, AUTOMATED Collected: 05/31/2017 Status: F Source: GUNNISON 9:08 AM [facility] REPOSITORY TYPE CODE TESTS RESULT OUT OF [...] Lymph 1.39 Performed By: #### L100.0100 #### [facility] [address] [place], [address] BASIC METABOLIC Collected: 05/31/2017 Status: F Source: ANDREA PROFILE (BMP) 9:08 AM [facility] REPOSITORY TYPE CODE TESTS RESULT OUT OF [...] GAP 11 Performed By: #### L500.2500 #### [facility] [address] [place], [address] BNP,B-TYPE NATRIURETIC Collected: 05/31/2017 Status: F Source: ANDREA PEPTIDE 9:08 AM [facility] REPOSITORY TYPE CODE TESTS RESULT OUT OF RANGE REFERENCE UNITS LAB L503.6620 0-100 pg/mL High B-TYPE 301.4 SERINA PEP Performed By: #### L503.6620 #### [facility] [address] [place], [address] EMERGENCY DEPARTMENT Observed: 05/27/2017 Status: F Source: ANDREA SUMMARY 7:11 AM [facility] REPOSITORY [facility] Medical Records Department [address] [place] [address] Emergency Department Summary 05/27/17 0121 MR#: [id number] Acct: [id number] Name: ARIANNA GUILLERMO Rep #: [id number] : 1940 76 From: Uli Laguerre DO [...] heart failure This note was generated with [employer] dictation software. It may contain incorrect words, [...] your Primary Care Provider. Call [facility] ([phone]) or report to the closest Emergency Room. Call 911 if necessary. 05/27/17 0711 <Electronically signed by Uli Laguerre DO> Date Uli Laguerre DO Cosigner Signature (If Indicated): Date CC: Justice Britt MD DISCHARGE INSTRUCTION Observed: 05/27/2017 Status: F Source: GUNNISON 2:38 AM [facility] REPOSITORY [facility] Medical Records Department [address] [place] [address] Discharge Instruction 05/27/17 0236 MR#: [id number] Acct: [id number] Name: ARIANNA GUILLERMO Rep #: [id number] : 1940 76 From: Uli Laguerre DO [...] your Primary Care Provider. Call [facility] ([phone]) or report to the closest Emergency Room. Call 911 if necessary. 05/27/17 0238 <Electronically signed by Uli Laguerre DO> Date Uli Laguerre DO Cosigner Signature (If Indicated): Date CC: Justice Britt MD ELBOW MIN 3 VIEWS Observed: 05/27/2017 Status: F Source: GUNNISON 1:21 AM [facility] REPOSITORY [facility] Imaging Services [address] [place] [address] Elbow min 3 Views MR#: [id number] Acct: [id number] Name: ARIANNA GUILLERMO Rep #: [id number] : 1940 76 From: Gerber Dietz MD PCP: Justice Britt MD, Chi Status: REG ER Study: Elbow min 3 Views Date of Exam: 05/27/17 Exam# [id number] Ordering Dr: Uli Laguerre DO STUDY: X-RAY [...] CC: Uli Laguerre DO; Justice Britt MD Mortuary Technician: Signed CBC W/DIFF, AUTOMATED Collected: 05/27/2017 Status: F Source: GUNNISON 12:40 AM [facility] REPOSITORY TYPE CODE TESTS RESULT OUT OF [...] 1.10 Performed By: #### L100.0100, L101.9900 #### [facility] [address] [place], [address] ERYTHROCYTE SED RATE Collected: 05/27/2017 Status: F Source: ANDREA 12:40 AM [facility] REPOSITORY TYPE CODE TESTS RESULT OUT OF RANGE REFERENCE UNITS LAB L102.0000 0-20 mm/hr High SED RATE 31 Performed By: #### L100.0100, L101.9900 #### [facility] [address] [place], [place], [address] BASIC METABOLIC Collected: 05/27/2017 Status: F Source: ANDREA PROFILE (BMP) 12:40 AM [facility] REPOSITORY TYPE CODE TESTS RESULT OUT OF [...] GAP 10 Performed By: #### L500.2500 #### [facility] [address] [place], [address] ALLERGIES ALLERGIES DATE TYPE / CODE NAME / CODE REACTION SEVERITY SOURCE 04/19/2018 Drug doxazosin Hives Unknown [place] Allergy/416 mesylate/[id number] [facility] 668222[facility] 04/19/2018 Drug fosinopril Hives Unknown [place] Allergy/416 sodium/I213885607 Community 723974[facility] Rep[facility] 04/19/2018 Drug JAMEEL Unknown Unknown [place] Allergy/416 Inhibitors/N23346 Community 163970([facility] 0147([facility] ED [facility]) Repository 04/19/2018 Drug lisinopril/L22716 Hives Unknown [place] Allergy/416 0658(RXNORM) [facility] 514286([facility] ED CT) Repository 04/19/2018 Drug morphine/K1344499 Other Unknown [place] Allergy/416 45(RXNORM) [facility] 224786([facility] ED CT) Repository 04/19/2018 Drug ibuprofen/T554012 Unknown Unknown [place] Allergy/416 377(RXNORM) [facility] 762619([facility] ED CT) Repository ENCOUNTERS ENCOUNTERS ADMIT/DISCHARGE ACCOUNT ADMITTING ENCOUNTER LOCATION SOURCE NUMBER CLASS 05/17/2018 [id number] Ambulatory [place] [address] [facility] ing:OLS.AVED Repository 05/13/2018 [id number] Ambulatory [place] [address] [facility] ing:OLS.AVEC Repository 05/03/2018 [id number] Ambulatory [place] [address] [facility] ing:LAB.FUTUR Repository E 05/02/2018 [id number] Ambulatory BMSBuilding:B [place] 4 [facility] Repository 05/02/2018 [id number] Ambulatory [place] 8 [facility] ing:POLAB3 Repository 05/02/2018 [id number] Ambulatory [place] 8 [facility] ing:OLS.AVED Repository 04/26/2018 [id number] Ambulatory [place] [address] [facility] ing:OLS.AVEC Repository 04/22/2018 [id number] Ambulatory [place] [address] [facility] ing:OLS.AVEC Repository 04/19/2018/ [id number] Ambulatory BMSBuilding:B [place] 8 1 [facility] Repository 04/12/2018 [id number] Ambulatory BMSBuilding:B [place] 8 [facility] Repository 04/12/2018/ [id number] Ambulatory [place] 8 3 [facility] ing:CLSP Repository 04/10/2018/ [id number] Ambulatory BMSBuilding:B [place] 8 9 [facility] Repository 03/30/2018 [id number] Ambulatory [place] 0 [facility] ing:OLS.AVEC Repository 03/22/2018 [id number] Ambulatory [place] 7 [facility] ing:OLS.AVEC Repository 03/18/2018 [id number] Ambulatory [place] 1 [facility] ing:LAB.FUTUR Repository E 02/25/2018 [id number] Ambulatory [place] 9 [facility] ing:OLS.AVEC Repository 02/22/2018 [id number] Ambulatory [place] 1 [facility] ing:OLS.AVEB Repository 02/20/2018/ [id number] Ambulatory BMSBuilding:B [place] 8 7 [facility] Repository 02/20/2018 [id number] Ambulatory [place] 1 [facility] ing:OLS.AVEC Repository 02/12/2018/ [id number] Ambulatory BMSBuilding:B [place] 8 7 [facility] Repository 02/05/2018 [id number] Ambulatory [place] 4 [facility] ing:OLS.AVEC Repository 01/30/2018 [id number] Ambulatory [place] 9 [facility] ing:OLS.AVED Repository 01/17/2018 [id number] Ambulatory BMSBuilding:B [place] 0 [facility] Repository 01/17/2018 [id number] Ambulatory [place] 7 [facility] ing:LAB.FUTUR Repository E 01/10/2018 [id number] Ambulatory [place] 4 [facility] ing:POLAB3 Repository 12/21/2017 [id number] Ambulatory [place] 2 [facility] ing:POLAB3 Repository 12/11/2017/ [id number] Ambulatory BMSBuilding:B [place] 8 5 [facility] Repository 12/04/2017/ [id number] Ambulatory [place] 8 7 [facility] ing:CLSP Repository 12/04/2017 [id number] Ambulatory BMSBuilding:B [place] 7 [facility] Repository 12/04/2017 [id number] Ambulatory [place] 6 [facility] ing:LAB.FUTUR Repository E 11/13/2017 [id number] Ambulatory [place] 7 [facility] ing:POLAB3 Repository 11/12/2017/ [id number] Ambulatory BMSBuilding:B [place] 8 7 [facility] Repository 11/08/2017 [id number] Ambulatory BMSBuilding:B Andrea 0 [facility] Hospital Repository 09/20/2017/ [id number] Ambulatory [place] Andrea 8 0 [facility] ing:PT Repository 09/14/2017 [id number] Ambulatory Andrea Andrea 2 [facility] ing:POLAB3 Repository 09/13/2017 [id number] Ambulatory BMSBuilding:B Andrea 1 MS.[facility] Hospital Repository 09/11/2017 [id number] Ambulatory [place] Andrea 2 [facility] ing:RAD Repository 08/30/2017/ [id number] Ambulatory BMSBuilding:B Andrea 8 5 [facility] Hospital Repository 08/27/2017 [id number] Ambulatory [place] 2 [facility] ing:CVS Repository 08/27/2017 [id number] Ambulatory Andrea Andrea 4 [facility] ing:POLAB3 Repository 08/02/2017/ [id number] Ambulatory BMSBuilding:B [place] 8 5 [facility] Hospital Repository 07/27/2017 [id number] Ambulatory [place] Andrea 9 [facility] ing:CLSP Repository 07/27/2017 [id number] Ambulatory BMSBuilding:B Andrea 5 MS.CF.[facility] Hospital Repository 07/26/2017 [id number] Ambulatory [place] Andrea 6 [facility] ing:LAB.FUTUR Repository E 07/24/2017 [id number] Ambulatory [place] Andrea 9 [facility] ing:PSN Repository 07/23/2017 [id number] Ambulatory BMSBuilding:B Andrea 0 MS.[facility] Hospital Repository 07/10/2017/ [id number] Ambulatory BMSBuilding:B Andrea 8 5 [facility] Hospital Repository 07/02/2017 [id number] Ambulatory [place] Andrea 4 [facility] ing:LAB.FUTUR Repository E 06/29/2017 [id number] Ambulatory [place] Andrea 7 [facility] ing:CVS Repository 06/28/2017 [id number] Ambulatory [place] 5 [facility] ing:POLAB3 Repository 06/25/2017 [id number] Ambulatory Andrea Andrea 2 [facility] ing:RAD Repository 06/19/2017/ [id number] Ambulatory BMSBuilding:B Andrea 8 5 [facility] Hospital Repository 06/18/2017 [id number] Ambulatory [place] 8 [facility] ing:LAB Repository 06/14/2017 [id number] Ambulatory [place] 4 [facility] ing:PSN Repository 06/11/2017 [id number] Ambulatory [place] Andrea 0 [facility] ing:POLAB3 Repository 06/07/2017 [id number] Ambulatory [place] 2 [facility] ing:CT Repository 06/05/2017/ [id number] Ambulatory BMSBuilding:B [place] 8 7 [facility] Hospital Repository 05/31/2017 [id number] Ambulatory [place] Andrea 0 [facility] ing:CVS Repository 05/31/2017 [id number] Ambulatory [place] Andrea 3 [facility] ing:LAB.FUTUR Repository E 05/27/2017/ [id number] Emergency Andrea Andrea 8 0 [facility] ing:ED Repository PAYERS PAYERS ENCOUNTER GUARANTOR PAYER SUBSCRIBER SOURCE 05/17/2018 ARIANNA L Primary NOT GIVENUNK Andrea [id number] E. Insurance:SELF PAY [facility] Number: Effective Repository OF Date:2018-05-17 [place], [place] [address]Ude: (HP) 05/13/2018 ARIANNA L Primary NOT GIVENUNK [place] [id number] E. Insurance:SELF PAY [facility] Number: Effective Repository OF Date:2018-05-13 [place], [place] [address]Auv: (HP) 05/03/2018 ARIANNA L Primary ARIANNA L Andrea [id number] CR Insurance:MEDICARE BALDNERDOB: [address] [id number], [place] [address]Wub: Number: Repository [id number] () Date:2018-05-03 05/03/2018 Secondary ARIANNA L [place] Insurance:ANTHEMPolic BALDNERDOB: [facility] y Number: [id number] Hospital [id number] Repository Date:0687-57-15LK [address] [place] [address] 24867KE: 05/03/2018 Tertiary NOT GIVENUNK Andrea Insurance:SELF PAY [facility] Number: Effective Repository Date:2018-05-03 05/02/2018 ARIANNA L Primary ARIANNA L [place] BALDNERTHE Insurance:MEDICARE BALDNERDOB: [facility] [id number] Hospital [id number] E Number: Repository [place] [id number] [place]ST[place] Date:2018-05-02 [place], [place] [address]Ltp: (HP) 05/02/2018 Secondary ARIANNA L [place] Insurance:ANTHEMPolic BALDNERDOB: Community y Number: [id number] Hospital [id number] Repository Date:8406-14-86[address] [place] [address] 609[address]CG: 05/02/2018 Tertiary NOT GIVENUNK Andrea Insurance:SELF PAY [facility] Number: Effective Repository Date:2018-05-02 05/02/2018 ARIANNA L Primary ARIANNA L [place] BALDNERTHE Insurance:MEDICARE BALDNERDOB: [facility] [id number] Hospital [id number] E Number: Repository [place] [id number] WESTERN Date:2018-04-05 [place], [place] [address]Cgl: () 05/02/2018 Secondary ARIANNA L [place] Insurance:ANTHEMPolic BALDNERDOB: [facility] y Number: [id number] Hospital [id number] Repository Date:9632-08-93[address]MRGNJ, [place] [address]QY: 05/02/2018 Tertiary NOT GIVENUNK Andrea Insurance:SELF PAY [facility] Number: Effective Repository Date:2018-04-05 05/02/2018 ARIANNA L Primary ARIANNA L [place] [id number] E. Insurance:MEDICARE BALDNERDOB: [facility] [id number] Number: Repository OF [id number] [place], Date:2018-05-02 [place] [address]Llu: () 05/02/2018 Secondary ARIANNA L [place] Insurance:ANTHEMPolic BALDNERDOB: Community y Number: [id number] Hospital [id number] Repository Date:1624-12-41RY [address] [place] [address] 675[address]YO: 05/02/2018 Tertiary NOT GIVENUNK [place] Insurance:SELF PAY [facility] Number: Effective Repository Date:2018-05-02 04/26/2018 ARIANNA L Primary ARIANNA L [place] [id number] E. Insurance:MEDICARE BALDNERDOB: [facility] [id number] Number: Repository OF [id number] [place], Date:2018-04-26 [place] [address]Alc: () 04/26/2018 Secondary ARIANNA L [place] Insurance:ANTHEMPolic BALDNERDOB: Community y Number: [id number] Hospital [id number] Repository Date:1260-21-17NM [address] [place] [address] 00896BS: 04/26/2018 Tertiary NOT GIVENUNK Andrea Insurance:SELF PAY [facility] Number: Effective Repository Date:2018-04-26 04/22/2018 ARIANNA L Primary ARIANNA L [place] [id number] E. Insurance:MEDICARE BALDNERDOB: [facility] [id number] HospitalUE Number: Repository OF [id number] [place], Date:2018-04-22 [place] [address]Vqf: () 04/22/2018 Secondary ARIANNA L [place] Insurance:ANTHEMPolic BALDNERDOB: Community y Number: [id number] Hospital [id number] Repository Date:8352-71-49IX [address] [address]BR: 04/22/2018 Tertiary NOT GIVENUNK [place] Insurance:SELF PAY [facility] Number: Effective Repository Date:2018-04-22 04/19/2018 ARIANNA L Primary ARIANNA L [place]DNERTHE Insurance:MEDICARE BALDNERDOB: [facility] [id number] Hospital [id number] E Number: [facility] [id number] [place] Date:2018-04-12 [place], [place] [address]Roh: () 04/19/2018 Secondary ARIANNA L [place] Insurance:ANTHEMPolic BALDNERDOB: Community y Number: [id number] Hospital [id number] Repository Date:7593-57-41TP [address]SMSSTUW, [place] [address]NF: 04/19/2018 Tertiary NOT GIVENUNK [place] Insurance:SELF PAY [facility] Number: Effective Repository Date:2018-04-18 04/12/2018 ARIANNA L Primary NOT GIVENUNK [place] BALDNERTHE Insurance:SELF PAY [place] [id number] Number: Effective Repository [place] Date:2018-04-12 [place], [place] [address]Zaa: () 04/12/2018 ARIANNA L Primary NOT GIVENUNK [place] BALDNERTHE Insurance:SELF PAY [facility]1700 E Number: Effective Repository [place] Date:2018-04-10 [place] [address]Bpe: () 04/10/2018 ARIANNA L Primary ARIANNA L [place]DNERTHE Insurance:MEDICARE BALDNERDOB: [facility] [id number]1700 E Number: Repository [place] [id number] WINNEBAGO Date:2018-04-04 [place], [place] [address]Ekg: () 04/10/2018 Secondary ARIANNA L [place] Insurance:ANTHEMPolic BALDNERDOB: On license of [facility] Number: [id number] Hospital [id number] Repository Date:6514-97-35LJ [address] [place] [address]PC: 04/10/2018 Tertiary NOT GIVENUNK [place] Insurance:SELF PAY [facility] Number: Effective Repository Date:2018-04-04 03/30/2018 ARIANNA L Primary ARIANNA L [place] [id number] E. Insurance:MEDICARE BALDNERDOB: [facility] [id number] RDAVENUE Number: Repository OF [id number] [place], Date:2018-03-30 [facility]Psa: (HP) 03/30/2018 Secondary ARIANNA L [place] Insurance:ANTHEMPolic BALDNERDOB: Community y Number: [id number] Hospital [id number] Repository Date:1987-94-02AW [address] [place] [address]SF: 03/30/2018 Tertiary NOT GIVENUNK Andrea Insurance:SELF PAY [facility] Number: Effective Repository Date:2018-03-30 03/22/2018 ARIANNA L Primary ARIANNA L [place] Insurance:MEDICARE BALDNERDOB: [facility] [address] [facility] [id number] [facility]1700 E Number: Repository [place] [id number] [place] Date:2018-03-22 [place], [place] [address]Oxr: () 03/22/2018 Secondary ARIANNA L [place] Insurance:ANTHEMPolic BALDNERDOB: Community y Number: [id number] Hospital [id number] Repository Date:8041-20-41N[address]UTYK[address], [place] [address]TO: 03/22/2018 Tertiary NOT GIVENUNK [place] Insurance:SELF PAY [facility] Number: Effective Repository Date:2018-03-22 03/18/2018 ARIANNA L Primary ARIANNA L [place]DN[place] Insurance:MEDICARE BALDNERDOB: [facility] A [facility] [id number] Huntington Hospital1700 E Number: Repository [place] [id number] [place] Date:2018-03-18 [place], [place] [address]Nls: () 03/18/2018 Secondary ARIANNA L [place] Insurance:ANTHEMPolic BALDNERDOB: Community y Number: [id number] Hospital [id number] Repository Date:6211-22-18RH [address]VQFOCBC, [place] [address]BR: 03/18/2018 Tertiary NOT GIVENUNK Andrea Insurance:SELF PAY [facility] Number: Effective Repository Date:2018-03-18 02/25/2018 ARIANNA L Primary ARIANNA L [place] Insurance:MEDICARE BALDNERDOB: [facility] [address] [facility] A [address]04-19[place] [address] E Number: Repository JACE [id number] [place] Date:2018-02-25 [place], [place] [address]Dnw: () 02/25/2018 Secondary ARIANNA L [place] Insurance:ANTHEMPolic BALDNERDOB: Community y Number: [id number] Hospital [id number] Repository Date:9694-52-95NX [address] [place] [address]56[address]ZK: 02/25/2018 Tertiary NOT GIVENUNK [place] Insurance:SELF PAY [facility] Number: Effective Repository Date:2018-02-25 02/22/2018 ARIANNA L Primary ARIANNA L [place] Insurance:MEDICARE BALDNERDOB: [facility] [id number] [address] E Number: Repository [facility] [id number] [place] Date:2018-02-22 [place], [place] [address]Dmv: () 02/22/2018 Secondary ARIANNA L [place] Insurance:ANTHEMPolic BALDNERDOB: Community y Number: [id number] Hospital [id number] Repository Date:4705-48-82MF [address] [place] [address] 29092QW: 02/22/2018 Tertiary NOT GIVENUNK [place] Insurance:SELF PAY [facility] Number: Effective Repository Date:2018-02-22 02/20/2018 ARIANNA L Primary ARIANNA L [place] BALDNERTHE Insurance:MEDICARE BALDNERDOB: [facility] A [address]04[address]19[place] [address] E Number: Repository JACE [id number] [place] Date:2017-05-09 [place], [place] [address]Saa: () 02/20/2018 Secondary ARIANNA L [place] Insurance:ANTHEMPolic BALDNERDOB: Community y Number: [id number] Hospital [id number] Repository Date:7029-67-30IG [address] [place] [address] 49[address]CK: 02/20/2018 Tertiary NOT GIVENUNK Andrea Insurance:SELF PAY [facility] Number: Effective Repository Date:2018-02-15 02/20/2018 ARIANNA L Primary ARIANNA L [place] [id number] CR Insurance:MEDICARE BALDNERDOB: [address] [id number], [place] [address]Vgo: Number: Repository [id number] () Date:2018-02-20 02/20/2018 Secondary ARIANNA L [place] Insurance:ANTHEMPolic BALDNERDOB: Community y Number: [id number] Hospital [id number] Repository Date:3040-93-60KX [address] [place] [address]QG: 02/20/2018 Tertiary NOT GIVENUNK [place] Insurance:SELF PAY [facility] Number: Effective Repository Date:2018-02-20 02/12/2018 ARIANNA L Primary ARIANNA L [place] [id number] CR Insurance:MEDICARE BALDNERDOB: [address] [id number], [place] [address]Iac: Number: Repository [id number] () Date:2018-01-02 02/12/2018 Secondary ARIANNA L [place] Insurance:ANTHEMPolic BALDNERDOB: Community y Number: [id number] Hospital [id number] Repository Date:9126-52-00SO [address] [place] [address] 78[address]II: 02/12/2018 Tertiary NOT GIVENUNK [place] Insurance:SELF PAY [facility] Number: Effective Repository Date:2018-02-12 02/05/2018 ARIANNA L Primary ARIANNA L [place] Insurance:MEDICARE [facility]NERDOB[facility] [id number] Hospital [id number] E Number: Repository [place] [id number] [place] Date:2018-02-05 [place], [place] [address]Atq: () 02/05/2018 Secondary ARIANNA L [place] Insurance:ANTHEMPolic BALDNERDOB: Community y Number: [id number] Hospital [id number] Repository Date:0061-79-80ZD [address] [place] [address] 969[address]MB: 02/05/2018 Tertiary NOT GIVENUNK [place] Insurance:SELF PAY [facility] Number: Effective Repository Date:2018-02-05 01/30/2018 ARIANNA L Primary ARIANNA L [place] [id number] CR Insurance:MEDICARE BALDNERDOB: [address] [id number], [place] [address]Myn: Number: Repository [id number] () Date:2018-01-30 01/30/2018 Secondary ARIANNA L [place] Insurance:ANTHEMPolic BALDNERDOB: Community y Number: [id number] Hospital [id number] Repository Date:7898-75-50PU [address] [place] [address]59[address]BX: 01/30/2018 Tertiary NOT GIVENUNK [place] Insurance:SELF PAY [facility] Number: Effective Repository Date:2018-01-30 01/17/2018 ARIANNA L Primary ARIANNA L [place] [id number] CR Insurance:MEDICARE BALDNERDOB: [address] [id number], [place] [address]Kxf: Number: Repository [id number] () Date:2018-01-17 01/17/2018 Secondary ARIANNA L [place] Insurance:ANTHEMPolic BALDNERDOB: Community y Number: [id number] Hospital [id number] Repository Date:1120-32-57NN [address] [place] [address] 160[address]RH: 01/17/2018 Tertiary NOT GIVENUNK [place] Insurance:SELF PAY [facility] Number: Effective Repository Date:2018-01-17 01/17/2018 ARIANNA L Primary ARIANNA L [place] [id number] CR Insurance:MEDICARE BALDNERDOB: Community [address] [place], [place] [id number] [place] [address]Swc: Number: Repository [id number] (HP) Date:2018-01-17 01/17/2018 Secondary ARIANNA L [place] Insurance:ANTHEMPolic BALDNERDOB: Community y Number: [id number] Hospital [id number] Repository Date:6627-05-69HX [address] [place] [address] 722[address]MT: 01/17/2018 Tertiary NOT GIVENUNK [place] Insurance:SELF PAY [facility] Number: Effective Repository Date:2018-01-17 01/10/2018 ARIANNA L Primary ARIANNA L [place] [id number] CR Insurance:MEDICARE BALDNERDOB: [address]04[address]19[place], [place] [address]Nxr: Number: Repository [id number] (HP) Date:2018-01-08 01/10/2018 Secondary ARIANNA L [place] Insurance:ANTHEMPolic BALDNERDOB: Community y Number: [id number] Hospital [id number] Repository Date:2862-26-84GI [address] [place] [address]OS: 01/10/2018 Tertiary NOT GIVENUNK [place] Insurance:SELF PAY [facility] Number: Effective Repository Date:2018-01-08 12/21/2017 ARIANNA L Primary ARIANNA L [place] [id number] CR Insurance:MEDICARE BALDNERDOB: Community [address] [place], [place] [address]109-04-19[place], [place] [address]Yyp: Number: Repository [id number] (HP) Date:2017-12-21 12/21/2017 Secondary ARIANNA L [place] Insurance:ANTHEMPolic BALDNERDOB: Community y Number: [id number] Hospital [id number] Repository Date:4936-49-06FB [address] [place] [address] 28176DJ: 12/21/2017 Tertiary NOT GIVENUNK [place] Insurance:SELF PAY [facility] Number: Effective Repository Date:2017-12-21 12/11/2017 ARIANNA L Primary ARIANNA L [place] [id number] CR Insurance:MEDICARE BALDNERDOB: [address]04[address]19[place], [place] [address]Ypf: Number: Repository [id number] () Date:2017-12-04 12/11/2017 Secondary ARIANNA L [place] Insurance:ANTHEMPolic BALDNERDOB: Community y Number: [id number] Hospital [id number] Repository Date:7432-42-39MD [address] [place] [address]SP: 12/11/2017 Tertiary NOT GIVENUNK [place] Insurance:SELF PAY [facility] Number: Effective Repository Date:2017-12-11 12/04/2017 ARIANNA L Primary ARIANNA L [place] [id number] CR Insurance:MEDICARE BALDNERDOB: [place] [id number] [address]Gpw: Number: Repository [id number] (HP) Date:2017-11-12 12/04/2017 Secondary ARIANNA L [place] Insurance:ANTHEMPolic BALDNERDOB: Community y Number: [id number] Hospital [id number] Repository Date:1186-45-07NI [address] [place] [address] 816[address]EB: 12/04/2017 Tertiary NOT GIVENUNK [place] Insurance:SELF PAY [facility] Number: Effective Repository Date:2017-11-12 12/04/2017 ARIANNA L Primary ARIANNA L [place] [id number] CR Insurance:MEDICARE BALDNERDOB: Community [address] [place], [place] [address]109-04-19[place], [place] [address]Kni: Number: Repository [id number] () Date:2017-11-12 12/04/2017 Secondary ARIANNA L [place] Insurance:ANTHEMPolic BALDNERDOB: Community y Number: [id number] Hospital [id number] Repository Date:5698-04-25XL [address] [place] [address] [place] [address]SR: 12/04/2017 Tertiary NOT GIVENUNK [place] Insurance:SELF PAY [facility] Number: Effective Repository Date:2017-12-04 12/04/2017 ARIANNA L Primary ARIANNA L [place] [id number] CR Insurance:MEDICARE BALDNERDOB: [place] [address]3439-04-19[place], [place] [address]Eoc: Number: Repository [id number] () Date:2017-12-04 12/04/2017 Secondary ARIANNA L [place] Insurance:ANTHEMPolic BALDNERDOB: Community y Number: [id number] Hospital [id number] Repository Date:8482-68-99YP [address]SUJNBLN [place] [address]VJ: 12/04/2017 Tertiary NOT GIVENUNK [place] Insurance:SELF PAY [facility] Number: Effective Repository Date:2017-12-04 11/13/2017 ARIANNA L Primary ARIANNA L [place] [id number] CR Insurance:MEDICARE BALDNERDOB: Community [address] [place] [address] [id number], [place] [address]Bwk: Number: Repository [id number] () Date:2017-11-12 11/13/2017 Secondary ARIANNA L [place] Insurance:ANTHEMPolic BALDNERDOB: Community y Number: [id number] Hospital [id number] Repository Date:9097-46-19QP [address]NYYI[place], [place] [address]TU: 11/13/2017 Tertiary NOT GIVENUNK [place] Insurance:SELF PAY [facility] Number: Effective Repository Date:2017-11-12 11/12/2017 ARIANNA L Primary ARIANNA L [place] [id number] CR Insurance:MEDICARE BALDNERDOB: Community [address] [place], [place] [id number] , [place] [address]Pzp: Number: Repository [id number] (HP) Date:2017-09-28 11/12/2017 Secondary ARIANNA L [place] Insurance:ANTHEMPolic BALDNERDOB: Community y Number: [id number] Hospital [id number] Repository Date:8403-14-46EN [address] [place] [address]PN: 11/12/2017 Tertiary NOT GIVENUNK [place] Insurance:SELF PAY [facility] Number: Effective Repository Date:2017-11-12 11/08/2017 ARIANNA L Primary ARIANNA L [place] [id number] CR Insurance:MEDICARE BALDNERDOB: Community [address] [place], [place] [id number] , [place] [address]Wco: Number: Repository [id number] (HP) Date:2017-08-30 11/08/2017 Secondary ARIANNA L [place] Insurance:ANTHEMPolic BALDNERDOB: Community y Number: [id number] Hospital [id number] Repository Date:0446-74-74HO [address] [place] [address] 233[address]OE: 11/08/2017 Tertiary NOT GIVENUNK [place] Insurance:SELF PAY [facility] Number: Effective Repository Date:2017-08-30 09/20/2017 ARIANNA L Primary ARIANNA L [place] [id number] CR Insurance:MEDICARE BALDNERDOB: Community [address] [place], [place] [id number] , [place] [address]Hbe: Number: Repository [id number] (HP) Date:2003-07-30 09/20/2017 Secondary ARIANNA L [place] Insurance:ANTHEMPolic BALDNERDOB: Community y Number: [id number] Hospital [id number] Repository Date:7651-69-98MK [address] [place] [address]JQ: 09/20/2017 Tertiary NOT GIVENUNK [place] Insurance:SELF PAY [facility] Number: Effective Repository Date:2017-09-12 09/14/2017 ARIANNA L Primary ARIANNA L [place] [id number] CR Insurance:MEDICARE BALDNERDOB: Community [address] [place] [address] [id number], [place] [address]Bxg: Number: Repository [id number] () Date:2017-09-03 09/14/2017 Secondary ARIANNA L [place] Insurance:ANTHEMPolic BALDNERDOB: Community y Number: [id number] Hospital [id number] Repository Date:2414-96-53HR [address]YYFFXHE[address] [place] [address]WT: 09/14/2017 Tertiary NOT GIVENUNK [place] Insurance:SELF PAY [facility] Number: Effective Repository Date:2017-09-03 09/13/2017 ARIANNA L Primary ARIANNA L [place] [id number] CR Insurance:MEDICARE BALDNERDOB: [address] [id number], [place] [address]Ipr: Number: Repository [id number] (HP) Date:2017-09-13 09/13/2017 Secondary ARIANNA L [place] Insurance:ANTHEMPolic BALDNERDOB: Community y Number: [id number] Hospital [id number] Repository Date:1850-03-24JB [address] [place] [address]AZ: 09/13/2017 Tertiary NOT GIVENUNK [place] Insurance:SELF PAY [facility] Number: Effective Repository Date:2017-09-13 09/11/2017 ARIANNA L Primary ARIANNA L [place] [id number] CR Insurance:MEDICARE BALDNERDOB: Community [address] [place] [address] [id number] [facility] , [place] [address]Ajh: Number: Repository [id number] (HP) Date:2017-09-11 09/11/2017 Secondary ARIANNA L [place] Insurance:ANTHEMPolic BALDNERDOB: Community y Number: [id number] Hospital [id number] Repository Date:1237-71-21NF [address]YSZZSOC, [place] [address]TF: 09/11/2017 Tertiary NOT GIVENUNK Andrea Insurance:SELF PAY [facility] Number: Effective Repository Date:2017-09-11 08/30/2017 ARIANNA L Primary ARIANNA L Andrea [id number] CR Insurance:MEDICARE BALDNERDOB: [address] [id number], [place] [address]Edx: Number: Repository [id number] (HP) Date:2017-08-02 08/30/2017 Secondary ARIANNA L Andrea Insurance:ANTHEMPolic BALDNERDOB: Community y Number: [id number] Hospital [id number] Repository Date:7465-95-97[address], [place] [address]UO: 08/30/2017 Tertiary NOT GIVENUNK [place] Insurance:SELF PAY [facility] Number: Effective Repository Date:2017-08-02 08/27/2017 ARIANNA L Primary ARIANNA L Andrea [id number] CR Insurance:MEDICARE BALDNERDOB: Community [address] [place] [address] [id number], [place] [address]Tti: Number: Repository [id number] (HP) Date:2017-08-27 08/27/2017 Secondary ARIANNA L [place] Insurance:ANTHEMPolic BALDNERDOB: Community y Number: [id number] Hospital [id number] Repository Date:4162-44-40[address]YNJQXZOEMERITA GALINDO [address]WC: 08/27/2017 Tertiary NOT GIVENUNK Andrea Insurance:SELF PAY [facility] Number: Effective Repository Date:2017-08-27 08/27/2017 ARIANNA L Primary ARIANNA L Andrea [id number] CR Insurance:MEDICARE BALDNERDOB: Community [address] [place], [place] [id number] , [place] [address]Qzx: Number: Repository [id number] (HP) Date:2017-08-27 08/27/2017 Secondary ARIANNA L [place] Insurance:ANTHEMPolic BALDNERDOB: Community y Number: [id number] Hospital [id number] Repository Date:3197-48-52[address] [place] [address]NA: 08/27/2017 Tertiary NOT GIVENUNK [place] Insurance:SELF PAY [facility] Number: Effective Repository Date:2017-08-27 08/02/2017 ARIANNA L Primary ARIANNA L [place] [id number] CR Insurance:MEDICARE BALDNERDOB: [address] , [place] [address]Kzq: Number: Repository [id number] (HP) Date:2017-07-27 08/02/2017 Secondary ARIANNA L [place] Insurance:ANTHEMPolic BALDNERDOB: Community y Number: [id number] Hospital [id number] Repository Date:5181-74-06KI [address] [place] [address]CV: 08/02/2017 Tertiary NOT GIVENUNK Andrea Insurance:SELF PAY [facility] Number: Effective Repository Date:2017-08-02 07/27/2017 ARIANNA L Primary ARIANNA L Andrea [id number] CR Insurance:MEDICARE BALDNERDOB: Community [address] [place], [place] [id number] , [place] [address]Sol: Number: Repository [id number] (HP) Date:2017-07-11 07/27/2017 Secondary ARIANNA L [place] Insurance:ANTHEMPolic BALDNERDOB: Community y Number: [id number] Hospital [id number] Repository Date:3880-64-87AO [address] [place] [address]XC: 07/27/2017 Tertiary NOT GIVENUNK [place] Insurance:SELF PAY [facility] Number: Effective Repository Date:2017-07-11 07/27/2017 ARIANNA L Primary ARIANNA L Andrea [id number] CR Insurance:MEDICARE BALDNERDOB: Community [address] [place], [place] [id number] [address]Ouh: Number: Repository [id number] () Date:2017-07-11 07/27/2017 Secondary ARIANNA L [place] Insurance:ANTHEMPolic BALDNERDOB: Community y Number: [id number] Hospital [id number] Repository Date:8554-24-65GR [address] [place] [address]VE: 07/27/2017 Tertiary NOT GIVENUNK [place] Insurance:SELF PAY [facility] Number: Effective Repository Date:2017-07-27 07/26/2017 ARIANNA L Primary ARIANNA L Andrea [id number] CR Insurance:MEDICARE BALDNERDOB: [address] [address]Zjg: Number: Repository [id number] () Date:2017-07-25 07/26/2017 Secondary ARIANNA L [place] Insurance:ANTHEMPolic BALDNERDOB: Community y Number: [id number] Hospital [id number] Repository Date:8410-76-85BL [address] [place] [address]UK: 07/26/2017 Tertiary NOT GIVENUNK [place] Insurance:SELF PAY [facility] Number: Effective Repository Date:2017-07-25 07/24/2017 ARIANNA L Primary ARIANNA L [place] [id number] CR Insurance:MEDICARE BALDNERDOB: Community [address] [place] [address] PART A BPolicy [id number], [place] [address]Zde: Number: Repository [id number] (HP) Date:2017-07-24 07/24/2017 Secondary ARIANNA L [place] Insurance:ANTHEMPolic BALDNERDOB: Community y Number: [id number] Hospital [id number] Repository Date:9657-13-21OI [address], [place] [address]DL: 07/24/2017 Tertiary NOT GIVENUNK [place] Insurance:SELF PAY [facility] Number: Effective Repository Date:2017-07-24 07/23/2017 ARIANNA L Primary ARIANNA L [place] [id number] CR Insurance:MEDICARE BALDNERDOB: [place] [id number], [place] [address]Bkr: Number: Repository [id number] (HP) Date:2017-07-23 07/23/2017 Secondary ARIANNA L Andrea Insurance:ANTHEMPolic BALDNERDOB: Community y Number: [id number] Hospital [id number] Repository Date:4225-00-49[address]ISFBVPV, [place] [address]ES: 07/23/2017 Tertiary NOT GIVENUNK Andrea Insurance:SELF PAY [facility] Number: Effective Repository Date:2017-07-23 07/10/2017 ARIANNA L Primary ARIANNA L Andrea [id number] CR Insurance:MEDICARE BALDNERDOB: [address] [id number], [place] [address]Tyh: Number: Repository [id number] (HP) Date:2017-06-19 07/10/2017 Secondary ARIANNA L [place] Insurance:ANTHEMPolic BALDNERDOB: Community y Number: [id number] Hospital [id number] Repository Date:4964-25-39C[address]FTYFDWY, [place] [address]OR: 07/10/2017 Tertiary NOT GIVENUNK [place] Insurance:SELF PAY [facility] Number: Effective Repository Date:2017-06-19 07/02/2017 Arianna L Primary NOT GIVENUNK [place] [id number] Cr Insurance:ANTHEMPolic Community [address] [place] [address] y Number: Effective Hospital , [place] [address]Wsh: Date:8862-06-71EE BOX Repository [address]BSBLQRA, [place] () [address]UP: 07/02/2017 Secondary NOT GIVENUNK Andrea Insurance:MEDICARE Community PART A [facility] Number: Effective Repository Date:2017-04-13 07/02/2017 Tertiary NOT GIVENUNK [place] Insurance:SELF PAY [facility] Number: Effective Repository Date:2017-04-13 06/29/2017 ARIANNA L Primary ARIANNA L Andrea [id number] CR Insurance:MEDICARE [facility]NERD[facility]: [address] [id number] [facility] , [place] [address]Nke: Number: Repository [id number] () Date:2017-06-28 06/29/2017 Secondary ARIANNA L [place] Insurance:ANTHEMPolic BALDNERDOB: Community y Number: [id number] Hospital [id number] Repository Date:6432-27-82OQ [address]CMOHFDQ, [place] [address]VJ: 06/29/2017 Tertiary NOT GIVENUNK [place] Insurance:SELF PAY [facility] Number: Effective Repository Date:2017-06-28 06/28/2017 ARIANNA L Primary ARIANNA L [place] [id number] CR Insurance:MEDICARE BALDNERDOB: [address] A [facility] [id number], [place] [address]Ejj: Number: Repository [id number] () Date:2017-06-28 06/28/2017 Secondary ARIANNA L [place] Insurance:ANTHEMPolic BALDNERDOB: Community y Number: [id number] Hospital [id number] Repository Date:7246-73-34IH [address] [place] [address]ER: 06/28/2017 Tertiary NOT GIVENUNK [place] Insurance:SELF PAY [facility] Number: Effective Repository Date:2017-06-28 06/25/2017 ARIANNA L Primary AIRANNA L Andrea [id number] CR Insurance:MEDICARE BALDNERDOB: [address]04[address]19[place], [place] [address]Aoc: Number: Repository [id number] (HP) Date:2017-06-25 06/25/2017 Secondary ARIANNA L [place] Insurance:ANTHEMPolic BALDNERDOB: Community y Number: [id number] Hospital [id number] Repository Date:7322-55-45EH [address] [place] [address]DL: 06/25/2017 Tertiary NOT GIVENUNK [place] Insurance:SELF PAY [facility] Number: Effective Repository Date:2017-06-25 06/19/2017 ARIANNA L Primary ARIANNA L [place] [id number] CR Insurance:MEDICARE BALDNERDOB: [address]04[address]19[place], [place] [address]Kgs: Number: Repository [id number] (HP) Date:2017-06-05 06/19/2017 Secondary ARIANNA L [place] Insurance:ANTHEMPolic BALDNERDOB: Community y Number: [id number] [place] [address] [id number] Repository Date:0228-52-66KZ [address] [place] [address]WH: 06/19/2017 Tertiary NOT GIVENUNK [place] Insurance:SELF PAY [facility] Number: Effective Repository Date:2017-06-05 06/18/2017 ARIANNA L Primary ARIANNA L Andrea [id number] CR Insurance:MEDICARE BALDNERDOB: [address]04[address]19[place], [place] [address]Tva: Number: Repository [id number] (HP) Date:2017-05-28 06/18/2017 Secondary ARIANNA L [place] Insurance:ANTHEMPolic BALDNERDOB: Community y Number: [id number] Hospital [id number] Repository Date:3458-28-65LV [address] [place] [address]TZ: 06/18/2017 Tertiary NOT GIVENUNK [place] Insurance:SELF PAY [facility] Number: Effective Repository Date:2017-05-28 06/14/2017 ARIANNA L Primary ARIANNA L [place] [id number] CR Insurance:MEDICARE BALDNERDOB: [address] [id number], [place] [address]Fmx: Number: Repository [id number] () Date:2017-06-14 06/14/2017 Secondary ARIANNA L [place] Insurance:ANTHEMPolic BALDNERDOB: Community y Number: [id number] Hospital [id number] Repository Date:9997-83-51LE [address] [place] [address]AJ: 06/14/2017 Tertiary NOT GIVENUNK [place] Insurance:SELF PAY [facility] Number: Effective Repository Date:2017-06-14 06/11/2017 ARIANNA L Primary ARIANNA L [place] [id number] CR Insurance:MEDICARE BALDNERDOB: [address] [id number], [place] [address]Tyi: Number: Repository [id number] () Date:2017-06-11 06/11/2017 Secondary ARIANNA L [place] Insurance:ANTHEMPolic BALDNERDOB: Community y Number: [id number] Hospital [id number] Repository Date:5140-79-37XK [address] [place] [address]XV: 06/11/2017 Tertiary NOT GIVENUNK [place] Insurance:SELF PAY [facility] Number: Effective Repository Date:2017-06-11 06/07/2017 ARIANNA L Primary ARIANNA L [place] [id number] CR Insurance:MEDICARE BALDNERDOB: Community [address] [place] [address] A [address]04[address]19[place], [place] [address]Zil: Number: Repository [id number] () Date:2017-06-07 06/07/2017 Secondary ARIANNA L [place] Insurance:ANTHEMPolic BALDNERDOB: Community y Number: [id number] Hospital [id number] Repository Date:9974-62-40DP [address] [place] [address]HR: 06/07/2017 Tertiary NOT GIVENUNK [place] Insurance:SELF PAY [facility] Number: Effective Repository Date:2017-06-07 06/05/2017 ARIANNA L Primary ARIANNA L Andrea [id number] CR Insurance:MEDICARE BALDNERDOB: Community [address] [place], [place] [address]-04-19[place], [place] [address]Vil: Number: Repository [id number] () Date:2017-05-22 06/05/2017 Secondary ARIANNA L [place] Insurance:ANTHEMPolic BALDNERDOB: Community y Number: [id number] Hospital [id number] Repository Date:8330-63-82NX [address] [place] [address]WW: 06/05/2017 Tertiary NOT GIVENUNK [place] Insurance:SELF PAY [facility] Number: Effective Repository Date:2017-05-22 05/31/2017 ARIANNA L Primary ARIANNA L [place] [id number] CR Insurance:MEDICARE BALDNERDOB: Community [address] [place], [place] [address]4-[address], [place] [address]Uxk: Number: Repository [id number] () Date:2017-05-31 05/31/2017 Secondary ARIANNA L [place] Insurance:ANTHEMPolic BALDNERDOB: Community y Number: [id number] Hospital [id number] Repository Date:7926-73-21FI [address] [place] [address]CP: 05/31/2017 Tertiary NOT GIVENUNK [place] Insurance:SELF PAY [facility] Number: Effective Repository Date:2017-05-31 05/31/2017 ARIANNA L Primary ARIANNA L [place] [id number] CR Insurance:MEDICARE BALDNERDOB: Community [address] [place], [place] [address]4-[address], [place] [address]Qff: Number: Repository [id number] (HP) Date:2017-05-29 05/31/2017 Secondary ARIANNA L [place] Insurance:ANTHEMPolic BALDNERDOB: Community y Number: [id number] Hospital [id number] Repository Date:3167-77-85TB [address] [address]LF: 05/31/2017 Tertiary NOT GIVENUNK [place] Insurance:SELF PAY [facility] Number: Effective Repository Date:2017-05-29 05/27/2017 ARIANNA L Primary ARIANNA L [place] [id number] CR Insurance:MEDICARE BALDNERDOB: [address] , [place] [address]Met: Number: Repository [id number] (HP) Date:2017-05-27 05/27/2017 Secondary ARIANNA L [place] Insurance:ANTHEMPolic BALDNERDOB: Community y Number: [id number] Hospital [id number] Repository Date:3093-71-84NB [address] [place] [address]KE: 05/27/2017 Tertiary NOT GIVENUNK [place] Insurance:SELF PAY [facility] Number: Effective Repository Date:2017-05-27
== END ==
LOC: OLS.AVED 05:00
PROVIDERS: Visit Provider Family Medicine
DX: N18.5 Chronic kidney disease, stage 5 (principal)
CPT/HCPCS: 36415; 80069

== ENCOUNTER → 2018-05-28 05:00 | Outpatient (REF) | payer MEDICARE, BC, SELFPAY ==
[2018-05-28 07:55] LABS: Anion Gap 7 (5-15); BUN 56 mg/dL (7-18); BUN/Creat Ratio 15.3 RATIO (10-20); Calcium,Total 8.3 mg/dL (8.5-10.1); Chloride 107 mmol/L (98-107); Creatinine, Serum 3.66 mg/dL (0.70-1.30); EST Glomerular Filtration Rate 17 mL/min (>60); Est Glom Filt Rate - Afr Amer 21 mL/min (>60); Glucose 101 mg/dL (74-106); Potassium 4.7 mmol/L (3.5-5.1); Sodium Level 141 mmol/L (136-145)
== END ==
LOC: OLS.AVEB 05:00
PROVIDERS: Visit Provider Family Medicine
DX: E78.5 Hyperlipidemia, unspecified (principal); E03.9 Hypothyroidism, unspecified; R53.83 Other fatigue; N18.9 Chronic kidney disease, unspecified
CPT/HCPCS: 36415; 80048

== ENCOUNTER → 2018-06-03 04:00 | Outpatient (REF) | payer MEDICARE, BC, SELFPAY ==
[2018-06-03 06:53] LABS: Hematocrit 29.1 % (40-54); Hemoglobin 9.2 g/dl (13.0-16.5); Mean Corp Hgb Conc 31.6 g/gl (32-36); Mean Corpuscular Hgb 29.2 pg (27.0-32.0); Mean Corpuscular Volume 92.4 fL (80-94); Mean Platelet Vol. 11.9 fl (6.2-12.0); Platelet Count 167 K/mm3 (150-450); RBC Distribution Width CV 14.5 % (11.6-14.6); Red Blood Count 3.15 M/mm3 (4.6-6.2); Scan Indicated on CBC? Y/N NO; White Blood Count 8.2 K/mm3 (4.4-11.0)
[2018-06-03 07:08] LABS: Albumin, Serum 2.8 g/dL (3.2-5.0); BUN 61 mg/dL (7-18); BUN/Creat Ratio 16.4 RATIO (10-20); Calcium,Total 8.1 mg/dL (8.5-10.1); Chloride 108 mmol/L (98-107); Creatinine, Serum 3.73 mg/dL (0.70-1.30); EST Glomerular Filtration Rate 17 mL/min (>60); Est Glom Filt Rate - Afr Amer 20 mL/min (>60); Glucose 103 mg/dL (74-106); Phosphorus 3.8 mg/dL (2.5-4.9); Potassium 4.4 mmol/L (3.5-5.1); Sodium Level 143 mmol/L (136-145)
[2018-06-03 09:19] LABS: PTHIN 144.7 pg/mL (18.4-80.1)
== END ==
LOC: OLS.AVEC 04:00
PROVIDERS: Visit Provider Family Medicine
DX: I12.0 Hypertensive chronic kidney disease with stage 5 chronic kidney disease or end stage renal disease (principal); N18.5 Chronic kidney disease, stage 5; D63.8 Anemia in other chronic diseases classified elsewhere; E78.5 Hyperlipidemia, unspecified
CPT/HCPCS: 36415; 80069; 83970; 85027

== ENCOUNTER → 2018-06-13 05:00 | Outpatient (REF) | payer MEDICARE, BC, SELFPAY ==
[2018-06-14 18:44] LABS: HEPATITIS B SURFACE AG Negative (Negative)
== END ==
LOC: OLS.AVEB 05:00
PROVIDERS: Visit Provider Family Medicine
DX: E03.9 Hypothyroidism, unspecified (principal); N18.5 Chronic kidney disease, stage 5
CPT/HCPCS: 36415; 87340

== ENCOUNTER → 2018-06-17 04:00 | Outpatient (REF) | payer MEDICARE, BC, SELFPAY ==
[2018-06-17 08:09] LABS: Hematocrit 30.5 % (40-54); Hemoglobin 9.4 g/dl (13.0-16.5); Mean Corp Hgb Conc 30.8 g/gl (32-36); Mean Corpuscular Hgb 28.7 pg (27.0-32.0); Mean Corpuscular Volume 93.3 fL (80-94); Mean Platelet Vol. 11.8 fl (6.2-12.0); Platelet Count 160 K/mm3 (150-450); RBC Distribution Width CV 14.4 % (11.6-14.6); RBC Distribution Width SD 47.8 fl (35.1-43.9); Red Blood Count 3.27 M/mm3 (4.6-6.2); White Blood Count 7.5 K/mm3 (4.4-11.0)
[2018-06-17 08:10] LABS: Albumin, Serum 2.9 g/dL (3.2-5.0); BUN 60 mg/dL (7-18); Calcium,Total 7.9 mg/dL (8.5-10.1); Chloride 109 mmol/L (98-107); Creatinine, Serum 3.76 mg/dL (0.70-1.30); EST Glomerular Filtration Rate 17 mL/min (>60); Est Glom Filt Rate - Afr Amer 20 mL/min (>60); Glucose 106 mg/dL (74-106); Phosphorus 4.2 mg/dL (2.5-4.9); Potassium 4.1 mmol/L (3.5-5.1); Sodium Level 144 mmol/L (136-145)
[2018-06-17 08:31] LABS: Scan Indicated on CBC? Y/N NO
[2018-06-17 08:58] LABS: PTHIN 212.6 pg/mL (18.4-80.1)
== END ==
LOC: OLS.AVEC 04:00
PROVIDERS: Visit Provider Family Medicine
DX: N18.5 Chronic kidney disease, stage 5 (principal)
CPT/HCPCS: 36415; 80069; 83970; 85027

== ENCOUNTER → 2018-06-20 15:45 | Outpatient (CLI) | payer MEDICARE, BC, SELFPAY ==
[2018-06-22 09:27] LABS: HEPATITIS B SURFACE AG Negative (Negative)
== END ==
PROVIDERS: Family Provider Family Medicine Geriatric Medicine; PCP Family Medicine Geriatric Medicine; Visit Provider Internal Medicine Nephrology
DX: N25.81 Secondary hyperparathyroidism of renal origin (principal)
CPT/HCPCS: 36415; 87340

== ENCOUNTER → 2018-07-01 07:45 | Outpatient (REF) | payer MEDICARE, BC, MEDICAID, SELFPAY ==
[2018-07-01 08:40] LABS: Absolute Lymphocyte Count 1.44 X10^3/ul (0.83-4.51); Absolute Neutrophil Count 7.2 X10^3/uL (2.0-7.7); Basophil# 0.03 X10^3/uL; Basophil% 0.3 % (0-1); Eosinophils% 3.1 % (0-5); Hemoglobin 10.8 g/dl (13.0-16.5); Lymphocyte # 1.44 X10^3/ul (4.0); Lymphocyte % 14.7 % (19-41); Mean Corp Hgb Conc 30.9 g/gl (32-36); Mean Corpuscular Hgb 28.2 pg (27.0-32.0); Mean Corpuscular Volume 91.4 fL (80-94); Mean Platelet Vol. 11.3 fl (6.2-12.0); Monocyte# 0.79 X10^3/uL; Monocyte% 8.1 % (0-10); Neutrophil # 7.19 X10^3/uL (2.7-7.7); Neutrophil % 73.6 % (47-70); Platelet Count 181 K/mm3 (150-450); RBC Distribution Width CV 14.3 % (11.6-14.6); RBC Distribution Width SD 47.3 fl (35.1-43.9); Red Blood Count 3.83 M/mm3 (4.6-6.2); White Blood Count 9.8 K/mm3 (4.4-11.0)
[2018-07-01 08:51] LABS: POSITIVE COUNT NO; POSITIVE DIFFERENTIAL NO; POSITIVE MORPHOLOGY NO
[2018-07-01 08:56] LABS: Thyroid Stim Hormone (TSH) 2.63 uIU/mL (0.358-3.74)
[2018-07-12 14:33] VITALS: BMI 37.5
== END ==
LOC: OLS.AVED 07:45
PROVIDERS: Visit Provider Family Medicine
DX: I12.9 Hypertensive chronic kidney disease with stage 1 through stage 4 chronic kidney disease, or unspecified chronic kidney disease (principal); N18.9 Chronic kidney disease, unspecified; R53.83 Other fatigue; E03.9 Hypothyroidism, unspecified
CPT/HCPCS: 36415; 84443; 85025

== ENCOUNTER → 2018-07-03 08:45 | Outpatient (CLI) | payer MEDICARE, BC, SELFPAY ==
--- NOTE | 2018-07-03 09:09 | BI_ITS ---
MAMMOGRAPHY - BILATERAL DIAGNOSTIC REASON FOR EXAM: Male, 77 years old. Left breast pain. PERTINENT HISTORY: Non-contributory. TECHNIQUE:. 2-D mediolateral oblique (MLO) and craniocaudad (CC) views of both breasts were obtained. CAD: Full Field Digital Mammography with Computer Added Detection was performed. COMPARISON: None. Baseline examination. FINDINGS: Breast Composition: There are scattered areas of fibroglandular density. Asymmetry of breast tissue is seen in the retroareolar region of the left breast. Correlation with ultrasound is recommended. There is also evidence of bilateral left axillary lymph nodes. No other significant abnormalities are identified. BI/DIAG MAMM W/CAD, BILAT IMPRESSION: Asymmetry of breast tissue with more breast tissue is seen in the retroareolar region of the left breast as compared to the right side. Correlation with ultrasound is recommended. ASSESSMENT CATEGORY: BIRADS Category 0: Incomplete. Need additional imaging evaluation. A letter regarding these results will be sent to the patient by the facility within 30 days. Approximately 10% of breast cancers are not detected by mammography. A normal mammogram should not delay biopsy of a clinically suspicious abnormality. Electronically Signed: Paul Escalante, at 10:02 EST , Service support ,
--- NOTE | 2018-07-03 09:10 | US_ITS ---
STUDY: ULTRASOUND BREAST - LEFT REASON FOR EXAM: Male, 77 years old. Left breast swelling and pain. TECHNIQUE: Axial and longitudinal images of the LEFT breast were performed with a high resolution ultrasound transducer. COMPARISON: Comparison is made with prior mammogram done earlier in the day.. FINDINGS: LEFT Breast: There is evidence of scattered fibroglandular tissue. The palpable abnormality corresponds to a 1.4 cm x 1.9 cm x 1 cm hypoechoic spiculated density. A biopsy is recommended for further evaluation. US/Breast Limited Unilateral IMPRESSION: The palpable abnormality corresponds to a 1.4 cm x 1.9 cm x 1 cm irregular hypoechoic spiculated density. A biopsy is recommended. ASSESSMENT CATEGORY: BIRADS Category 4: Suspicious - Biopsy Should Be Considered. A letter regarding these results will be sent to the patient by the facility within 30 days. Electronically Signed: Paul Escalante, at 10:51 EST , Service support ,
== END ==
PROVIDERS: Family Provider Family Medicine; PCP Family Medicine; Referring Provider Family Medicine; Visit Provider Family Medicine
DX: N63.20 Unspecified lump in the left breast, unspecified quadrant (principal); N64.4 Mastodynia
CPT/HCPCS: 76642; 77066

== ENCOUNTER → 2018-07-24 08:21 | Outpatient (CLI) | payer MEDICARE, BC, SELFPAY ==
--- NOTE | 2018-07-24 14:50 | LES_PTH ---
PATIENT: ARIANNA GUILLERMO [facility] U#:[id number] AGE/SX: 84/M ROOM: RE07/24/[address]: Dr. Liam Brown MD : 1940 BED: DIS: SPEC #: [id number] RECD: 07/25/18 07:30 STATUS: JANE RICHARD #: [id number] LYUBOV: 07/24/18 14:[address]: Liam Brown DEPT: SURGICAL PATHOLOGY RECD BY: Hima Valdes ENTERED: 07/25/18 11:04 SP TYPE: Lesion OTHR DR: Dr. Norris Murphy MD Tissues: A - Skin of forearm, NOS B - Left breast, NOS Procedures: Surgery Specimen Level IV HEADER OPERATION: Excision left forearm skin lesion, ultrasound-guided needle core biopsy left breast mass PRE-OP DIAGNOSIS: Skin lesion left forearm L98.9; left breast mass N63.20 TISSUE SUBMITTED: A - Skin lesion left forearm, B - Left breast biopsy ISCHEMIC TIME: 1 minute FIXATION TIME: 28.5 hours MICROSCOPIC DIAGNOSIS A. Left hand lesion, excisional biopsy: Inflamed actinic keratosis, hypertrophic type with mild atypia. Negative for malignancy. B. Left breast, core biopsy: Consistent with gynecomastia. Negative for atypia or malignancy. PERLITA:nona 07/26/18 MICROSCOPIC DESCRIPTION Slides are reviewed. GROSS DESCRIPTION A - Received in fixative is one container labeled with the patient's name and designated left hand. The specimen consists of a piece of westfall-white skin ellipse measuring 3 x 1 cm and up to 0.3 cm in thickness. There is a slightly raised westfall lesion on the surface measuring 1.2 x 0.9 cm. The specimen is inked, serially sectioned and submitted entirely in two cassettes. Cassette 2 contains the lesion. B - Received in fixative is one container labeled with the patient's name and designated left breast. The specimen consists of multiple elongated fragments of westfall-yellow fibroadipose tissue that in aggregate measure 1.5 x 0.5 x 0.1 cm. The entire specimen is submitted in one cassette. / PERLITA:nona 07/25/18 TC:5 CPT: 88553 x2
[2018-07-24 15:47] VITALS: BMI 37.5
== END ==
PROVIDERS: Family Provider Family Medicine; PCP Family Medicine; Referring Provider Surgery; Visit Provider Surgery
DX: N63.20 Unspecified lump in the left breast, unspecified quadrant (principal); L98.9 Disorder of the skin and subcutaneous tissue, unspecified
CPT/HCPCS: 88305

== ENCOUNTER → 2018-07-26 05:50 | Outpatient (REF) | payer MEDICARE, BC, SELFPAY ==
[2018-07-24 15:47] VITALS: BMI 37.5
[2018-07-26 07:53] LABS: Anion Gap 9 (5-15); BUN 35 mg/dL (7-18); BUN/Creat Ratio 11.1 RATIO (10-20); Calcium,Total 8.2 mg/dL (8.5-10.1); Chloride 96 mmol/L (98-107); Creatinine, Serum 3.16 mg/dL (0.70-1.30); EST Glomerular Filtration Rate 20 mL/min (>60); Est Glom Filt Rate - Afr Amer 25 mL/min (>60); Glucose 128 mg/dL (74-106); Sodium Level 136 mmol/L (136-145)
== END ==
LOC: OLS.AVED 05:50
PROVIDERS: Visit Provider Family Medicine
DX: R53.83 Other fatigue (principal)
CPT/HCPCS: 36415; 80048

== ENCOUNTER → 2018-08-19 05:36 | Outpatient (REF) | payer MEDICARE, BC, SELFPAY ==
[2018-08-12 14:22] VITALS: BMI 37.5
[2018-08-19 08:08] LABS: Uric Acid 7.1 mg/dL (3.5-7.2)
== END ==
LOC: OLS.AVEC 05:36
PROVIDERS: Visit Provider Family Medicine
DX: M10.9 Gout, unspecified (principal)
CPT/HCPCS: 36415; 84550

== ENCOUNTER → 2018-08-21 05:40 | Outpatient (REF) | payer MEDICARE, BC, SELFPAY ==
[2018-08-12 14:22] VITALS: BMI 37.5
[2018-08-21 09:27] LABS: AST(SGOT) 18 U/L (15-37); Alanine Aminotransfer ALT/SGPT 22 U/L (16-61); Albumin, Serum 2.9 g/dL (3.2-5.0); Alkaline Phosphatase 101 U/L (45-117); Bilirubin, Direct 0.07 mg/dL (0.00-0.30); Cholesterol 135 mg/dL (200); Globulin 3.3 g/dL (2.2-4.2); High Density Lipoprotein 32 mg/dL; Protein, Total 6.2 g/dL (6.4-8.2); Triglycerides 242 mg/dL; Very Low Density Lipoprotein 48 mg/dL (5-40)
[2018-08-21 10:35] LABS: Vitamin D,25 Hydroxy 38.8 ng/mL (29.95-100.01)
== END ==
LOC: OLS.AVED 05:40
PROVIDERS: Visit Provider Family Medicine
DX: N40.0 Benign prostatic hyperplasia without lower urinary tract symptoms (principal); I50.9 Heart failure, unspecified; E78.5 Hyperlipidemia, unspecified
CPT/HCPCS: 36415; 80061; 80076; 82306

== ENCOUNTER → 2018-08-28 05:00 | Outpatient (REF) | payer MEDICARE, BC, SELFPAY ==
[2018-08-12 14:22] VITALS: BMI 37.5
[2018-08-28 08:46] LABS: Absolute Neutrophil Count 5.2 X10^3/uL (2.0-7.7); Basophil# 0.04 X10^3/uL; Basophil% 0.5 % (0-1); Eosinophil# 0.36 X10^3/uL; Eosinophils% 4.6 % (0-5); Hematocrit 37.9 % (40-54); Hemoglobin 11.9 g/dl (13.0-16.5); Lymphocyte % 17.7 % (19-41); Mean Corp Hgb Conc 31.4 g/gl (32-36); Mean Corpuscular Hgb 28.2 pg (27.0-32.0); Mean Corpuscular Volume 89.8 fL (80-94); Mean Platelet Vol. 10.5 fl (6.2-12.0); Monocyte# 0.87 X10^3/uL; Neutrophil # 5.21 X10^3/uL (2.7-7.7); Neutrophil % 65.8 % (47-70); POSITIVE COUNT NO; POSITIVE DIFFERENTIAL NO; POSITIVE MORPHOLOGY NO; Platelet Count 201 K/mm3 (150-450); RBC Distribution Width CV 16.4 % (11.6-14.6); RBC Distribution Width SD 51.5 fl (35.1-43.9); Red Blood Count 4.22 M/mm3 (4.6-6.2); White Blood Count 7.9 K/mm3 (4.4-11.0)
[2018-08-28 09:00] LABS: Thyroid Stim Hormone (TSH) 2.18 uIU/mL (0.358-3.74)
== END ==
LOC: OLS.AVEC 05:00
PROVIDERS: Visit Provider Family Medicine
DX: N18.9 Chronic kidney disease, unspecified (principal); E03.9 Hypothyroidism, unspecified; I10 Essential (primary) hypertension
CPT/HCPCS: 36415; 84443; 85025

== ENCOUNTER 2018-10-02 09:34 | Outpatient (CLI) | payer MEDICARE, BC, SELFPAY ==
[2018-08-12 14:22] VITALS: BMI 37.5
[2018-10-01 12:13] VITALS: BMI 38.3
--- NOTE | 2018-10-02 06:14 | HP.PCM_ITS ---
Problem List (1) Problem with dialysis access Status: Acute Qualifiers: History and Physical Date of Admission: 10/02/18 Intake Vital Signs 09/18/18 Body Mass Index (BMI) 37.5 09/18/18 Blood Pressure 104/65 09/18/18 Blood Pressure Location Rt brachial 09/18/18 Blood Pressure Position Sitting 09/18/18 Respiratory Rate 20 H 09/18/18 Pulse Rate 83 09/18/18 Pulse Ox 94 Intake Visit Reasons: Decreased Access Ok per CJ Chief Complaint: recheck fistula Coil Strapper Required: No Is patient in pain?: No Allergies KENYETTA Inhibitors Allergy (Verified 09/18/18 13:07) Unknown doxazosin mesylate [From Cardura] Allergy (Verified 09/18/18 13:07) Hives fosinopril sodium [From Monopril] Allergy (Verified 09/18/18 13:07) Hives lisinopril Allergy (Verified 09/18/18 13:07) Hives morphine Allergy (Verified 09/18/18 13:07) Other ibuprofen Adverse Reaction (Unknown, Verified 09/18/18 13:07) Unknown Medications Aspirin [Aspirin, Baby] 81 mg PO DAILY@0800 04/01/14 [History Confirmed 09/18/18] Finasteride [Proscar] 5 mg PO DAILY 04/01/14 [History Confirmed 09/18/18] Nitroglycerin (INPATIENT USE) [Nitrostat] 0.4 mg SUBLINGUAL Q5M PRN 02/01/15 [History Confirmed 09/18/18] clopidogrel 75 mg tablet 75 mg PO DAILY #90 tab 06/12/17 [Rx Confirmed 09/18/18] pravastatin 20 mg tablet 20 mg PO QHS #90 tab 08/08/17 [Rx Confirmed 09/18/18] cholecalciferol (vitamin D3) 50,000 unit capsule 50,000 unit PO QWEEK 09/13/17 [History Confirmed 09/18/18] citalopram 20 mg tablet 20 mg PO QDAY 09/13/17 [History Confirmed 09/18/18] donepezil 5 mg tablet 5 mg PO QDAY 09/13/17 [History Confirmed 09/18/18] acetaminophen 325 mg capsule 650 mg PO Q6H PRN cap 02/20/18 [History Confirmed 09/18/18] bisacodyl 10 mg rectal suppository 10 mg RC DAILY PRN 02/20/18 [History Confirmed 09/18/18] magnesium hydroxide 400 mg/5 mL oral suspension 30 ml PO DAILY PRN ml 02/20/18 [History Confirmed 09/18/18] calcitriol 0.25 mcg capsule 0.25 mcg PO DAILY cap 02/27/18 [History Confirmed 09/18/18] ferrous sulfate 325 mg (65 mg iron) tablet 325 mg PO BID tab 02/27/18 [History Confirmed 09/18/18] atenolol 50 mg tablet 50 mg PO DAILY tab 05/02/18 [History Confirmed 09/18/18] furosemide 40 mg tablet 40 mg PO BID 05/02/18 [History Confirmed 09/18/18] levothyroxine 50 mcg tablet 50 mcg PO DAILY 05/02/18 [History Confirmed 09/18/18] potassium chloride ER 20 mEq tablet,extended release 40 meq PO TID tab 05/02/18 [History Confirmed 09/18/18] ranitidine 150 mg tablet 150 mg PO DAILY 05/02/18 [History Confirmed 09/18/18] tamsulosin 0.4 mg capsule 0.4 mg PO DAILY 06/20/18 [History Confirmed 09/18/18] terazosin 5 mg capsule 5 mg PO DAILY 06/20/18 [History Confirmed 09/18/18] [facility] Medical History Breast mass, left (Acute) Skin lesion (Acute) Fatigue (Chronic) Abnormal electrocardiogram (Chronic) Long-term use of high-risk medication (Chronic) BMI 40.0-44.9, adult (Chronic) Chest pain on exertion (Chronic) Angina pectoris (Chronic) Pulmonary hypertension (Chronic) ALY (obstructive sleep apnea) (Chronic) Abnormal nuclear stress test (Chronic) Diastolic heart failure (Chronic) Sinus bradycardia (Chronic) Atherosclerosis of [place] coronary artery of [place] heart without angina pectoris (Chronic) Shortness of breath (Chronic) Atherosclerosis of [place] coronary artery of [place] heart without angina pectoris (Acute) Hypertension (Chronic) Arthritis (Chronic) Benign essential hypertension (Chronic) Benign prostatic hypertrophy without lower urinary tract symptoms (Chronic) Chronic kidney disease (Chronic) Coronary artery disease (Chronic) Gastroesophageal reflux disease (Chronic) Hyperlipidemia (Chronic) Normochromic normocytic anemia (Chronic) Chronic renal failure, stage 3 (moderate) (Chronic) Chest pain (Acute) Hypokalemia (Acute) Acute renal insufficiency (Acute) Surgical History 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 (Acute) Status post right partial knee replacement (Acute) History of bilateral hip arthroplasty (Acute) History of angioplasty (Chronic) History of left breast biopsy (Acute ~06/2018) S/P peripheral artery angioplasty (Acute) history fistulogram (Acute ~07/27/17) Family History Father Hypertension Cancer Brother CAD (coronary artery disease) Mother Hypertension Sister Hypertension Son Atrial fibrillation Social History Tobacco: How many years used: 20 second hand exposure: No alcohol intake: never substance use type: does not use caffeine: No what type of physical activity do you participate in: none HPI HPI HPI: Alberto Antonio, is a 78 M who presents to the office today for HPI HPI HPI: Alberto Antonio, is a 78 M who presents to the office today for decreased clearance of the left forearm AV fistula. Dr. Brown performed a fistulogram on 04/12/18. Findings included 3 areas of high-grade venous stenosis. A 7x2 cutting balloon and 7x2 conquest angioplasty was performed. Patient returns with decreased flows. He denies pain/discomfort. He has not had any recent hospitalizations. He is maintained on ASA and Plavix. ROS General General: No weight change, appetite, fatigue, colon cancer, breast cancer or w eakness HEENT HEENT: No difficulty swallowing, eye injury, eye surgery, swollen glands or hoarseness Endo Endocrine: Yes thyroid disease Skin Skin: No rash or changing moles Breast Breast: No left breast lump, right breast lump, nipple discharge, breast pain, abnormal mammogram, abnormal US or breast enlargement Musc Musculoskeletal: Yes arthritis Cardio Cardiovascular: Yes atrial fibrillation Psych Psychiatric: No depression, anxiety or hearing voices Resp Respiratory: No shortness of breath, No sleep apnea, No cough, No COPD, No asthma, No emphysema, No wheezing Gastro Gastrointestinal: No abdominal pain, No nausea or vomiting, Yes diarrhea, No constipation, No blood in stool, No acid reflux, No hemorrhoids, No ulcers, No gallbladder problem, No black,tarry stools Ad[place]so Hematologic: Yes blood thinners Neuro Neurologic: No weakness Exam Const General: cooperative, healthy appearing, comfortable, no acute distress HENIN Head: normal to inspection Eyes General: appearance normal, both eyes and all related structures Neck Neck: normal visual inspection Neck mass: No Chest Breast Palpation: No nipple discharge Resp Effort & Inspection: normal respiratory effort Auscultation: clear to auscultation bilaterally Cardio Rate: regular rate Rhythm: regular rhythm GI Inspection: normal to inspection, obesity Palpation: soft Auscultation: normal bowel sounds Skin General: no rashes or lesions noted Neuro General: no focal motor deficits, CN's II-XI intact bilaterally Extrem Other: Left forearm AV fistula- good pulse, decreased bruit and thrill Psych Appearance: grossly normal Affect: normal affect Assessment & Plan Problems 1. Problem with dialysis access, sequela T82.898S Plan Dr. Brown also evaluated this patient. Dr. Brown will plan to perform a left forearm AV fistulogram. Procedure details, risks and benefits have been explained. Patient and his son have had the opportunity to ask and have questions answered. Patient verbally understands and agrees with the plan. He may continue on Plavix and ASA. Retrograde antecubital access with be used. A 7 x 2 or even 8 x 2 cutting balloon will be utilized. Patient does request local only to be used. Avoid sedation medication per patient request. Coding Level of Care Code Off vis,est,level 3 Diagnoses Problem with dialysis access, sequela T82.898S ??Encounter type: sequela 09/18/18 1329 <Electronically signed by Jaylin New PA-C> Date Jaylin New PA-C Cosigner Signature: Date (if applicable) CC: ~ I have re-examined the patient. There are no clinical changes since date of exam.
[2018-10-02 10:48] LABS: Hematocrit 35.3 % (40-54); Hemoglobin 11.3 g/dl (13.0-16.5); Mean Corpuscular Hgb 29.7 pg (27.0-32.0); Mean Corpuscular Volume 92.9 fL (80-94); Mean Platelet Vol. 10.2 fl (6.2-12.0); Platelet Count 216 K/mm3 (150-450); RBC Distribution Width CV 16.2 % (11.6-14.6); RBC Distribution Width SD 52.9 fl (35.1-43.9); White Blood Count 7.6 K/mm3 (4.4-11.0)
[2018-10-02 10:49] LABS: Scan Indicated on CBC? Y/N NO
[2018-10-02 11:05] LABS: Anion Gap 14 (5-15); BUN 49 mg/dL (7-18); BUN/Creat Ratio 7.9 RATIO (10-20); Calcium,Total 8.9 mg/dL (8.5-10.1); Chloride 100 mmol/L (98-107); EST Glomerular Filtration Rate 9 mL/min (>60); Est Glom Filt Rate - Afr Amer 11 mL/min (>60); Estimated Creatinine Clearance 9.19 ml/min; Glucose 109 mg/dL (74-106); Potassium 3.6 mmol/L (3.5-5.1); Sodium Level 140 mmol/L (136-145)
--- NOTE | 2018-10-02 11:51 | PCM.OPRPT ---
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 Double access Description of Surgical Findings:: Timeout and informed consent was obtained. 78-year-old gent was taken to the special procedure lab placed on the table per draped. Ultrasound was used to identify the cephalic vein closer to the antecubital space. 2% lidocaine was instilled micropuncture needle was inserted retrograde with flow micropuncture wire inserted. A 6 [place] short sheath was inserted. 035 Glidewire was inserted with a 4 [place] angled glide cath. Access was gained to the radial artery proximal to the fistula. Using Isovue contrast fistula gram was obtained in the form. This demonstrated 70% stenosis of the very proximal portion of the fistula adjacent to the anastomosis. Then there was a couple centimeters of normal fistula and then another longer area approximately 3 cm long of high-grade 80% stenosis. In the proximal forearm close to the antecubital space there was an additional area of 80% stenosis over 2 cm. I placed a new Glidewire into the left radial artery. I advanced a 8 x 20 m conquest balloon in the perianastomotic area was treated. This was partially within the artery and mostly within the vein. Then the secondary area of venous stenosis closer to the origin of the fissure was also treated. Both of these inflations went up to 10 moises of pressure. The patient then had some discomfort. A 4 Palau[place] glide cath was reinserted and 50 g obtained now demonstrated dramatic improvement in both areas. The stricturing of the proximal forearm persisted. So I then placed a second sheath. This was in the mid fistula antegrade with flow. 2% lidocaine was instilled micropuncture needle inserted micropuncture wire inserted and 6 Palauan short sheath dilator was inserted. This additional area in the proximal forearm then was again treated with the 8 x 20 m conquest balloon. All the way up to 40 moises of pressure and yet there was still some residual defect within the balloon. Completion view however after removal of the balloon demonstrated again dramatic improvement with 10% residual stenosis. Fistulogram was then completed up the arm and chest area with no upper arm or chest outflow issues. Balloons wire removed sheath removed U sutures of 4-0 nylon was placed. There was good pulse thrill and bruit at the completion no apparent complication blood loss was minimal and the patient tolerated it well. The patient has a left forearm radial cephalic AV fistula. The anastomosis is somewhat more proximal in the forearm. There was an area of 70% stenosis adjacent to the anastomosis. There was a short area of relatively narrow normal fistula and then had again another 3 cm long area of stenosis. And then in the proximal forearm there was an area of high-grade 80% stenosis. Subsequent to angioplasty of all 3 sites there appears to be resolution to a large degree of all areas of stenosis with 10% residual in the proximal forearm. There is good upper arm and central venous outflow. Liam Brown M.D., F.A.C.S. Type of Anesthesia:: Local
== END 2018-10-02 13:10 | disposition home or self-care (01) ==
LOC: LAB 09:37 → CLSP 09:57
PROVIDERS: Family Provider Family Medicine; PCP Family Medicine; Referring Provider Surgery; Visit Provider Surgery
DX: T82.858A Stenosis of other vascular prosthetic devices, implants and grafts, initial encounter (principal); I13.0 Hypertensive heart and chronic kidney disease with heart failure and stage 1 through stage 4 chronic kidney disease, or unspecified chronic kidney disease; N18.3 Chronic kidney disease, stage 3 (moderate); I50.30 Unspecified diastolic (congestive) heart failure; I25.119 Atherosclerotic heart disease of native coronary artery with unspecified angina pectoris; I27.20 Pulmonary hypertension, unspecified; G47.33 Obstructive sleep apnea (adult) (pediatric); M19.90 Unspecified osteoarthritis, unspecified site; N40.0 Benign prostatic hyperplasia without lower urinary tract symptoms; K21.9 Gastro-esophageal reflux disease without esophagitis; E78.5 Hyperlipidemia, unspecified; I48.91 Unspecified atrial fibrillation; E07.9 Disorder of thyroid, unspecified; Z86.2 Personal history of diseases of the blood and blood-forming organs and certain disorders involving the immune mechanism; Z79.82 Long term (current) use of aspirin; Z79.02 Long term (current) use of antithrombotics/antiplatelets; Z79.899 Other long term (current) drug therapy
CPT/HCPCS: 36415; 36902; 76937; 80048; 85027; Q9967; C1725; C1769

== ENCOUNTER → 2018-11-28 13:14 | Outpatient (CLI) | payer MEDICARE, BC, SELFPAY ==
[2018-10-03 13:08] VITALS: BMI 38.5
--- NOTE | 2018-11-28 13:18 | CT_ITS ---
STUDY: CT CERVICAL SPINE WITHOUT CONTRAST REASON FOR EXAM: Male, 78 years old. Neck pain RADIATION DOSAGE (If Supplied By Facility): CTDIvol = ( 24.76 ) mGy, DLP = ( 470.31 ) mGycm TECHNIQUE: High resolution transaxial imaging was performed without contrast material. Sagittal and coronal images were reconstructed. Individualized dose optimization techniques were used for this CT. COMPARISON: None available. FINDINGS: There is no evidence of fracture or dislocation in the cervical spine. The dens is intact. Alignment is normal. The vertebral body heights are well-maintained. There are mild multilevel degenerative changes with facet hypertrophy and disc space narrowing. The visualized paraspinal soft tissues are within normal limits. CT/Spine Cervical without Contras IMPRESSION: No fracture or dislocation in the cervical spine. Mild degenerative change. Electronically Signed: Karthikeyan Pacheco, at 14:11 EDT Tel , Service support ,
== END ==
PROVIDERS: Family Provider Family Medicine; PCP Family Medicine; Referring Provider Family Medicine; Visit Provider Family Medicine
DX: M50.30 Other cervical disc degeneration, unspecified cervical region (principal)
CPT/HCPCS: 72125

== ENCOUNTER 2020-02-23 05:13 | Day surgery (SDC) | payer MEDICARE, BC, MEDICAID, SELFPAY ==
[2020-02-11 14:55] VITALS: BMI 38.0
[2020-02-23 05:44] VITALS: BP 130/67; PULSE 71; RESP 16; TEMP 36.3; O2SAT 98; BMI 40.3
--- NOTE | 2020-02-23 05:47 | HP.PCM_ITS ---
Problem List (1) Melanotic stools Status: Acute History and Physical Date of Admission: 02/23/20 Intake Visit Reasons: CSCOPE/ RECTAL BLEEDING Chief Complaint: rectal bleeding Coil Placer Required: No Is patient in pain?: No Allergies KENYETTA Inhibitors Allergy (Verified 02/11/20 14:55) Unknown doxazosin mesylate [From Cardura] Allergy (Verified 02/11/20 14:55) Hives fosinopril sodium [From Monopril] Allergy (Verified 02/11/20 14:55) Hives lisinopril Allergy (Verified 02/11/20 14:55) Hives morphine Allergy (Verified 02/11/20 14:55) Other ibuprofen Adverse Reaction (Unknown, Verified 02/11/20 14:55) Unknown Medications Aspirin [Aspirin, Baby] 81 mg PO DAILY@0800 04/01/14 [History Confirmed 02/11/20] Finasteride [Proscar] 5 mg PO DAILY 04/01/14 [History Confirmed 02/11/20] Nitroglycerin (INPATIENT USE) [Nitrostat] 0.4 mg SUBLINGUAL Q5M PRN 02/01/15 [History Confirmed 02/11/20] clopidogrel 75 mg tablet 75 mg PO DAILY #90 tab 06/12/17 [Rx Confirmed 02/11/20] pravastatin 20 mg tablet 20 mg PO QHS #90 tab 08/08/17 [Rx Confirmed 02/11/20] acetaminophen 325 mg capsule 650 mg PO Q6H PRN cap 02/20/18 [History Confirmed 02/11/20] bisacodyl 10 mg rectal suppository 10 mg RC DAILY PRN 02/20/18 [History Confirmed 02/11/20] magnesium hydroxide 400 mg/5 mL oral suspension 30 ml PO DAILY PRN ml 02/20/18 [History Confirmed 02/11/20] furosemide 40 mg tablet 40 mg PO BID 05/02/18 [History Confirmed 02/11/20] levothyroxine 50 mcg tablet 50 mcg PO DAILY 05/02/18 [History Confirmed 02/11/20] terazosin 5 mg capsule 5 mg PO DAILY 06/20/18 [History Confirmed 02/11/20] allopurinol 100 mg tablet 100 mg PO DAILY 10/03/18 [History Confirmed 02/11/20] docusate sodium 100 mg capsule 100 mg PO BID 10/03/18 [History Confirmed 02/11/20] fluticasone propionate 50 mcg/actuation nasal spray,suspension 1 spray INTR ANASAL DAILY 10/03/18 [History Confirmed 02/11/20] loratadine 10 mg tablet 10 mg PO DAILY 10/03/18 [History Confirmed 02/11/20] tamsulosin 0.4 mg capsule 0.4 mg PO DAILY 04/02/19 [History Confirmed 02/11/20] baclofen 10 mg tablet 10 mg PO BID PRN 09/12/19 [History Confirmed 02/11/20] guaifenesin 600 mg tablet, extended release 12 hr 600 mg PO Q12H PRN 09/12/19 [History Confirmed 02/11/20] melatonin 3 mg tablet 3 mg PO HS PRN 09/12/19 [History Confirmed 02/11/20] sevelamer carbonate 800 mg tablet 800 mg PO TID 09/12/19 [History Confirmed 02/11/20] ibuprofen 200 mg tablet 200 mg PO Q6H PRN 09/24/19 [History Confirmed 02/11/20] polyethylene glycol 3350 17 gram/dose oral powder 17 g PO BID PRN g 09/24/19 [History Confirmed 02/11/20] artificial tears(hypromellose) 0.2 % eye drops 1 drp OPHTHALMIC 4-8XD PRN 12/25/19 [History Confirmed 02/11/20] buspirone 5 mg tablet 5 mg PO DAILY tab 12/25/19 [History Confirmed 02/11/20] citalopram 20 mg tablet 20 mg PO QDAY tab 12/25/19 [History Confirmed 02/11/20] FOR[facility] Medical History Essential hypertension (Chronic) Breast mass, left (Acute) Skin lesion (Acute) Fatigue (Chronic) Abnormal electrocardiogram (Chronic) Long-term use of high-risk medication (Chronic) BMI 40.0-44.9, adult (Chronic) Chest pain on exertion (Chronic) Angina pectoris (Chronic) Pulmonary hypertension (Chronic) ALY (obstructive sleep apnea) (Chronic) Abnormal nuclear stress test (Chronic) Diastolic heart failure (Chronic) Sinus bradycardia (Chronic) Shortness of breath (Chronic) Atherosclerosis of [place] coronary artery of [place] heart without angina pectoris (Chronic) Arthritis (Chronic) Benign essential hypertension (Chronic) Benign prostatic hypertrophy without lower urinary tract symptoms (Chronic) Chronic kidney disease (Chronic) Gastroesophageal reflux disease (Chronic) Hyperlipidemia (Chronic) Normochromic normocytic anemia (Chronic) Chronic renal failure, stage 3 (moderate) (Chronic) Acute renal insufficiency (Resolved) Chest pain (Resolved) Hypokalemia (Resolved) Coronary artery disease (Inactive) Hypertension (Inactive) Surgical History 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 (Acute) Status post right partial knee replacement (Acute) History of bilateral hip arthroplasty (Acute) History of angioplasty (Chronic) History of left breast biopsy (Acute ~06/2018) S/P peripheral artery angioplasty (Acute) history fistulogram (Acute ~07/27/17) Family History Father Hypertension Cancer Brother CAD (coronary artery disease) Mother Hypertension Sister Hypertension Son Atrial fibrillation Social History (Updated 02/11/20 @ 15:[address] Liam Brown MD) Smoking Status: Never smoker Tobacco: How many years used: 20 second hand exposure: No alcohol intake: never substance use type: does not use caffeine: No what type of physical activity do you participate in: none HPI HPI HPI: ARIANNA GUILLERMO, is a 79 M who presents to the office today for surgical consultation regarding an episode of melanotic stool. We have evidence that the patient had a previous colonoscopy November 17, 2016 performed at the [facility] per Dr. Kaz Sanders. The pathology suggested a tubular adenoma of the hepatic flexure fragments of colonic mucosa with no diagnosis from the right and left colon and a transverse colon tubular adenoma. The patient however states that he did not have bright red rectal bleeding that it was absolutely jet black and that it came and has resolved. He is on hemodialysis. That is performed via transposed left forearm cephalic vein to radial artery AV fistula that I created for him. He is on low-dose aspirin therapy as well as clopidogrel therapy in addition to his other medications. By report he does take ibuprofen 200 mg every 6 hours as needed. He states that he was absolutely pain-free when the episode occurred. He absolutely denies abdominal discomfort. He states that he does have a previous history of gastroesophageal reflux disease and that previously he was on medication for that. He states that he is not on any medication currently. HPI HPI HPI: ARIANNA GUILLERMO, is a 79 M who presents to the office today for ROS General General: No weight change, appetite, fatigue, colon cancer, breast cancer or weakness HEENT HEENT: No difficulty swallowing, eye injury, eye surgery, swollen glands or hoarseness Endo Endocrine: Yes thyroid disease Skin Skin: No rash or changing moles Breast Breast: No left breast lump, right breast lump, nipple discharge, breast pain, abnormal mammogram, abnormal US or breast enlargement Musc Musculoskeletal: Yes arthritis Cardio Cardiovascular: Yes atrial fibrillation Psych Psychiatric: No depression, anxiety or hearing voices Resp Respiratory: No shortness of breath, No sleep apnea, No cough, No COPD, No asthma, No emphysema, No wheezing Gastro Gastrointestinal: No abdominal pain, No nausea or vomiting, Yes diarrhea, No constipation, No blood in stool, No acid reflux, No hemorrhoids, No ulcers, No gallbladder problem, No black,tarry stools [place] Hematologic: Yes blood thinners Neuro Neurologic: No weakness Exam Const General: cooperative, comfortable, no acute distress Nutritional Appearance: obese morbidly obese [facility] Head: normal to inspection Eyes General: appearance normal, both eyes and all related structures Chest Breast Palpation: No nipple discharge Resp Effort & Inspection: normal respiratory effort Auscultation: clear to auscultation bilaterally Cardio Rate: regular rate Rhythm: regular rhythm GI Palpation: soft Other: Unable to detect internal organs secondary to body habitus Extrem Other: Left forearm transposed cephalic vein to radial artery AV fistula with slight aneurysmal change but excellent pulse thrill and bruit Psych Affect: normal affect Assessment & Plan Problems 1. Melanotic stools K92.1 Plan Transient melanotic stool which was Hemoccult positive. Patient is at increased risk for recurrent gastroesophageal reflux disease or peptic ulcer disease as he is on aspirin and clopidogrel and as needed ibuprofen. He reports that in the past he had been on acid suppressive medications. He states that the episode of melanotic stool lasted a couple days but has resolved and eats claims that he is completely asymptomatic. As noted his most recent colonoscopy was 2016. The patient absolutely denies any bright red rectal bleeding. With all of that in mind I think it is reasonable to offer him a esophagogastroduodenoscopy with possible biopsy. He is aware of the technique, benefit, risk of alternatives. We will utilize monitored anesthesia care because of his chronic renal insufficiency and hemodialysis. We will currently keep him on his aspirin and clopidogrel therapy. He may require recurrent initiation of acid suppression medication. I will reserve recommending colonoscopy for any symptom recurrence. He is in agreement with this approach. I appreciate the opportunity of assisting with her surgical care. Copy: Dr. Norris Brown M.D., F.A.C.S. Coding Level of Care Code Off vis,est,level 3 Diagnoses Melanotic stools K92.1 I have re-examined the patient. There are no clinical changes since date of exam. Procedure Criteria Procedure Type: Elective COVID Risk Discussion: The surgeon/proceduralist and patient have discussed in detail the risk of exposure to and/or potential harm posed by the COVID-19 virus with having a surgery/procedure at this time versus the risk of delaying the surgery/procedure. It is not possible to know either the risk of delaying the surgery or procedure or chance of getting an infection with perfect accuracy, but a joint decision was made between the patient and the surgeon/proceduralist to proceed at this time with the scheduled surgery/procedure as indicated on the consent form.
[2020-02-23] MEDS: Lactated Ringers 1,000 ML 100 ML IV (06:13)
--- NOTE | 2020-02-23 06:30 | IMM_PTH ---
PATIENT: ARIANNA GUILLERMO LOC: EN U#:[id number] AGE/SX: 79/M ROOM: RE02/23/[address]: Dr. Liam Brown MD : 1940 BED: DIS: 02/23/2020 SPEC #: [id number] RECD: 02/23/20 10:14 STATUS: JANE REQ #: [id number] LYUBOV: 02/23/20 06:[address]: Liam Brown DEPT: IMMUNOHISTOCHEMISTRY RECD BY: Maddy Merrill ENTERED: 02/23/20 10:15 SP TYPE: IMMUNO OTHR DR: Dr. Norris Murphy MD Tissues: B - Stomach, NOS Procedures: H Pylori (initial) PHYSICIAN & INSTITUTION [place] [id number] SPECIMEN INFORMATION: Tissue Source: B - Antral biopsy Clinical Info: Melanotic stools Specimen Number: [id number] CPT code: 55530 METHODOLOGY: Deparaffinized sections of prefer/formalin-fixed tissue or PAP/DQ stained slides are incubated with monoclonal/polyclonal antibodies/oligonucleotide probes. Localization is made via biotin free immunoperoxidase method. Appropriate controls are performed and reacted as expected. Results on target cell population are indicated in the following table: RESULTS: ANTIBODY / CLONE RESULT Block B H Pylori (polyclonal) negative These tests were developed and their performance characteristics determined by [facility]. They may not have been cleared or approved by the U.S. Food and Drug Administration. The FDA has determined that such clearance or approval is not necessary. INTERPRETATION: B. Antral biopsy: Negative for Helicobacter pylori organisms. AM:nona 02/25/20
--- NOTE | 2020-02-23 06:30 | EGD_PTH ---
PATIENT: ARIANNA GUILLERMO LOC: EN U#:[id number] AGE/SX: 79/M ROOM: RE02/23/[address]: Dr. Liam Brown MD : 1940 BED: DIS: 02/23/2020 SPEC #: [id number] RECD: 02/23/20 07:30 STATUS: JANE RICHARD #: [id number] LYUBOV: 02/23/20 06:[address]: Liam Brown DEPT: SURGICAL PATHOLOGY RECD BY: Alana Munoz ENTERED: 02/23/20 09:15 SP TYPE: EGD BIOPSY OTHR DR: Dr. Norris Murphy MD Tissues: A - Duodenum, NOS B - Gastric mucous membrane C - Stomach, NOS D - Gastric mucous membrane Procedures: Special Stain Group II Special Stain Group I Surgery Specimen Level IV GMS Stain (control) Alcian Blue/PAS (control) HEADER OPERATION: EGD ([facility] [place]) PRE-OP DIAGNOSIS: Melanotic stools TISSUE SUBMITTED: A - Duodenal biopsy, B - Antral biopsy for H. pylori and pathology, C - Greater curvature polyp biopsy, D - EG junction biopsy MICROSCOPIC DIAGNOSIS A. Duodenum, biopsy: Focal gastric metaplasia and minimal chronic inflammation. B. Gastric antrum, biopsy: Mild chronic gastritis. See comment. C. Stomach, greater curvature polyp, biopsy: Fundic gland polyp. D. Gastroesophageal junction, biopsy: Fibrinopurulent material and granulation suggestive of ulcer. No evidence of intestinal metaplasia. Negative for fungal organisms. See comment. AM:nona 02/24/20 COMMENT B. The results of immunohistochemistry for Helicobacter pylori will be reported separately ([id number]). D. Alcian blue/PAS stain with matched control supports the above diagnosis. GMS stain with matched control was used in the evaluation of this case. MICROSCOPIC DESCRIPTION Slides are reviewed. GROSS DESCRIPTION A - Received in fixative is one container labeled with the patient's name and designated duodenal biopsy. The specimen consists of one irregular fragment of light westfall soft tissue that measures 0.4 x 0.3 x 0.1 cm. The specimen is totally submitted in one cassette. B - Received in fixative is one container labeled with the patient's name and designated antral biopsy. The specimen consists of one irregular fragment of light westfall soft tissue that measures 0.3 x 0.2 x 0.1 cm. The specimen is totally submitted in one cassette. C - Received in fixative is one container labeled with the patient's name and designated greater curvature polyp. The specimen consists of one irregular fragment of light westfall soft tissue that measures 0.3 x 0.3 x 0.1 cm. The specimen is totally submitted in one cassette. D - Received in fixative is one container labeled with the patient's name and designated EG junction biopsy. The specimen consists of two irregular fragments of light westfall soft tissue that in aggregate measure 0.7 x 0.3 x 0.1 cm. The specimen is totally submitted in one cassette. / SJ:rg 02/23/20 TC:2 CPT: 06802 x4
[2020-02-23 06:46] VITALS: BP 130/67; BP 98/41; PULSE 65; RESP 16; TEMP 36; O2SAT 96
--- NOTE | 2020-02-23 06:47 | OP.EGD_ITS ---
Patient Name: Alberto Antonio Procedure Date: 02/23/2020 6:04 AM Date of : 1940 Age: 79 Procedure: Upper GI endoscopy Indications: Heme positive stool Providers: Liam Brown MD Referring MD: Norris Murphy MD Medicines: See the Anesthesia note for documentation of the administered medications Complications: No immediate complications. Procedure: Pre-Anesthesia Assessment: - Prior to the procedure, a History and Physical was performed, and patient medications and allergies were reviewed. The patient's tolerance of previous anesthesia was also reviewed. The risks and benefits of the procedure and the sedation options and risks were discussed with the patient. All questions were answered, and informed consent was obtained. Prior Anticoagulants: The patient has taken aspirin. ASA Grade Assessment: III - A patient with severe systemic disease. After reviewing the risks and benefits, the patient was deemed in satisfactory condition to undergo the procedure. After obtaining informed consent, the endoscope was passed under direct vision. Throughout the procedure, the patient's blood pressure, pulse, and oxygen saturations were monitored continuously. The gastroscope was introduced through the mouth, and advanced to the second part of duodenum. The upper GI endoscopy was accomplished without difficulty. The patient tolerated the procedure well. Scope In: 6:32:45 AM Scope Out: 6:38:52 AM Total Procedure Duration Time 0 hours 6 minutes 7 seconds Findings: LA Grade B (one or more mucosal breaks greater than 5 mm, not extending between the tops of two mucosal folds) esophagitis with bleeding was found 40 cm from the incisors. Biopsies were taken with a cold forceps for histology. Localized mild inflammation characterized by erythema and linear erosions was found in the gastric antrum. Biopsies were taken with a cold forceps for histology. Multiple sessile polyps with no bleeding and no stigmata of recent bleeding were found on the greater curvature of the stomach. The polyp was removed with a cold biopsy forceps. Resection and retrieval were complete. Diffuse mildly erythematous mucosa without active bleeding and with no stigmata of bleeding was found in the duodenal bulb. Biopsies were taken with a cold forceps for histology. The Z-line was irregular and was found 40 cm from the incisors. A small hiatal hernia was present. Impression: - LA Grade B reflux esophagitis. Biopsied. - Gastritis. Biopsied. - Multiple gastric polyps. Resected and retrieved. - Erythematous duodenopathy. Biopsied. - Z-line irregular, 40 cm from the incisors. Recommendation: - Discharge patient to home. - Resume previous diet. - Continue present medications. - Use Pepcid (famotidine) 20 mg PO daily. - Discharge patient to a care home. Procedure Code(s): --- Professional --- 51978, Esophagogastroduodenoscopy, flexible, transoral; with biopsy, single or multiple Diagnosis Code(s): --- Professional --- K21.0, Gastro-esophageal reflux disease with esophagitis K29.70, Gastritis, unspecified, without bleeding K31.7, Polyp of stomach and duodenum K31.89, Other diseases of stomach and duodenum K22.8, Other specified diseases of esophagus R19.5, Other fecal abnormalities CPT copyright 2017 [employer]. All rights reserved. The codes documented in this report are preliminary and upon oiler and greaser review may be revised to meet current compliance requirements. Liam Brown MD 02/23/2020 6:46:05 AM This report has been signed electronically. Number of Addenda: 0 Note Initiated On: 02/23/2020 6:04 AM
--- NOTE | 2020-02-23 06:47 | OP.CCLET_ITS ---
02/23/2020 Norris Murphy MD [address] [phone] Re : Upper GI endoscopy procedure for Alberto Antonio Dear Dr. Murphy This procedure was performed on Sunday, February 23, 2020. My impressions and recommendations are as follows: Impressions : - LA Grade B reflux esophagitis. Biopsied. - Gastritis. Biopsied. - Multiple gastric polyps. Resected and retrieved. - Erythematous duodenopathy. Biopsied. - Z-line irregular, 40 cm from the incisors. Recommendations : - Discharge patient to home. - Resume previous diet. - Continue present medications. - Use Pepcid (famotidine) 20 mg PO daily. - Discharge patient to a [facility]. My findings are described in the full procedure note, which is enclosed. If I can be of further assistance, please feel free to contact me at Doctor phone number(s): Work: . Sincerely, Liam Brown MD 02/23/2020 6:46:05 AM This report has been signed electronically.
[2020-02-23 06:50] VITALS: BP 130/67; BP 76/38; PULSE 65; RESP 16; O2SAT 96
[2020-02-23 06:55] VITALS: BP 102/51; BP 130/67; PULSE 66; RESP 16; O2SAT 96
[2020-02-23 07:01] VITALS: BP 114/67; BP 130/67; PULSE 64; RESP 16; TEMP 36.4; O2SAT 96
[2020-02-23 07:20] VITALS: BP 130/67
== END 2020-02-23 07:20 | disposition home or self-care (01) ==
LOC: EN 05:17 → AC 05:18
PROVIDERS: PCP Family Medicine; Referring Provider Family Medicine; Visit Provider Surgery
PROC: 0DJ08ZZ Inspection of Upper Intestinal Tract, Via Natural or Artificial Opening Endoscopic (ICD-10-PCS; CPT 43235; principal; 2020-02-23 06:25)
DX: K29.50 Unspecified chronic gastritis without bleeding (principal); R19.5 Other fecal abnormalities; K31.7 Polyp of stomach and duodenum; K31.89 Other diseases of stomach and duodenum; K22.8 Other specified diseases of esophagus; K21.00 Gastro-esophageal reflux disease with esophagitis, without bleeding; I12.9 Hypertensive chronic kidney disease with stage 1 through stage 4 chronic kidney disease, or unspecified chronic kidney disease; G47.33 Obstructive sleep apnea (adult) (pediatric); I27.20 Pulmonary hypertension, unspecified; N40.0 Benign prostatic hyperplasia without lower urinary tract symptoms; E78.5 Hyperlipidemia, unspecified; N18.30 Chronic kidney disease, stage 3 unspecified; Z79.02 Long term (current) use of antithrombotics/antiplatelets; Z79.82 Long term (current) use of aspirin; Z88.6 Allergy status to analgesic agent; Z88.8 Allergy status to other drugs, medicaments and biological substances; Z99.2 Dependence on renal dialysis
CPT/HCPCS: 43239; 88305; 88312; 88313; 88342; J7120; J2405

== ENCOUNTER 2020-12-27 23:02 | Emergency (ER) | payer MEDICARE, BC, MEDICAID, SELFPAY ==
[2020-12-27 23:04] VITALS: BP 174/80; PULSE 62; RESP 19; TEMP 36.3; O2SAT 96; BMI 39.9
[2020-12-27 23:10] VITALS: BMI 39.9
--- NOTE | 2020-12-28 00:09 | CT_ITS ---
STUDY: CT BRAIN WITHOUT CONTRAST REASON FOR EXAM: Male, 80 years old. Stroke symptoms. Blurred vision. Headache. TECHNIQUE: Transaxial CT imaging of the brain was performed without administration of intravenous contrast material. Individualized dose optimization techniques were used for this CT. COMPARISON: 06/07/2017 CT brain. FINDINGS: No evidence of intracranial hemorrhage, concerning mass, acute infarct, or hydrocephalus. 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 Only mild mass effect upon the overlying frontal lobes. Chronic microangiopathic changes in the white matter. Atherosclerosis of the intracranial arteries. No acute osseous abnormality. Visualized paranasal sinuses and mastoid air cells patent. Visualized extracranial soft tissues unremarkable. ASPECTS 02/06 CT/Brain/Head without Contrast IMPRESSION: No acute intracranial findings. Small planum sphenoidale meningioma. Electronically Signed: Manolo Asencio MD at 3:02 EDT Tel , Service support ,
--- NOTE | 2020-12-28 00:09 | EKG12_ITS ---
Test Reason : DYSRHYTHMIA Blood Pressure : / mmHG Vent. Rate : 064 BPM Atrial Rate : 064 BPM P-R Int : 208 ms QRS Dur : 120 ms QT Int : 454 ms P-R-T Axes : 041 -29 -11 degrees QTc Int : 468 ms Normal sinus rhythm Inferior infarct , age undetermined , cannot be excluded Abnormal ECG Confirmed by DIONNE HOWE, SY ([id number]), assistant film editor AMENA OLIVER ([id number]) on 12/29/2020 9:52:07 AM Referred By: ZORA Confirmed By:SY TRUONG MD
--- NOTE | 2020-12-28 00:09 | RAD_ITS ---
STUDY: X-RAY CHEST REASON FOR EXAM: Male, 80 years old. Stroke. TECHNIQUE: AP portable upright COMPARISON: 06/25/2017 CXR FINDINGS: No evidence of acute pneumonia, pulmonary edema, pneumothorax or pleural effusion. Chronic reticular -- nodular opacities left midlung and right upper lung, and mild linear atelectasis/scarring in the lung bases are similar to previous. Some underlying emphysema. Cardiac silhouette, hilar and mediastinal contours with no acute findings. Heart size normal. Atherosclerosis of the thoracic aorta. Degenerative osseous changes with no acute osseous abnormality. RAD/Chest 1 View (Portable) IMPRESSION: No acute findings. Chronic interstitial changes and mild emphysema. Electronically Signed: Manolo Asencio MD at 2:58 EDT Tel , Service support ,
--- NOTE | 2020-12-28 00:10 | EDS_ITS ---
HPI History of Present Illness Chief Complaint: Neuro S/Sx Informant: patient and family Narrative Narrative: 80-year-old male presenting to the emergency department from the [facility]. Patient states that his left eye does not feel normal. Unfortunately the patient is a very poor historian and tends to minimize his symptoms. Reportedly he went to bed last night at 2130 hrs. He states at that point he felt fine. When he woke at approximately 0500 this morning he states that his left eye felt different. He denies any diplopia or blurry vision. He denies any redness tearing or discharge. He states that he does not have a foreign body sensation. His son who is with him states that there was report that his left arm leg and face felt different. The patient does state that his left face had decreased sensation this morning but is since resolved and he cannot tell me exactly when that resolved. He states that he never had any symptoms in his arms or his legs. He states nothing was different this evening other than his son heard about the symptoms and wanted him evaluated. He is on Plavix but does not know why. He also takes daily aspirin. He also states he had a headache that resolved with Tylenol. [facility] Medical History (Updated 12/28/20 @ 03:[address] Esdras Best, ) Abnormal electrocardiogram Abnormal nuclear stress test Acute renal insufficiency Angina pectoris Arthritis Atherosclerosis of [place] coronary artery of [place] heart without angina pectoris Benign essential hypertension Benign prostatic hypertrophy without lower urinary tract symptoms BMI 40.0-44.9, adult Breast mass, left Chest pain Chest pain on exertion Chronic kidney disease Chronic renal failure, stage 3 (moderate) Coronary artery disease Diastolic heart failure Essential hypertension Fatigue Gastroesophageal reflux disease Hyperlipidemia Hypertension Hypokalemia Long-term use of high-risk medication Melanotic stools Normochromic normocytic anemia ALY (obstructive sleep apnea) Pulmonary hypertension Shortness of breath Sinus bradycardia Skin lesion Home Medications aspirin 81 mg PO DAILY@0800 04/01/14 [History Last Taken 10/02/18] finasteride 5 mg PO DAILY 04/01/14 [History Last Taken 10/02/18] nitroglycerin 0.4 mg SUBLINGUAL Q5M PRN 02/01/15 [History Last Taken 02/27/15] clopidogrel 75 mg tablet 75 mg PO DAILY #90 tab 06/12/17 [Rx Last Taken 10/02/18] pravastatin 20 mg tablet 20 mg PO QHS #90 tab 08/08/17 [Rx Last Taken 12/04/17] acetaminophen 325 mg capsule 1,000 mg PO BID cap 02/20/18 [History Last Taken Unknown] bisacodyl 10 mg rectal suppository 10 mg RC DAILY PRN 02/20/18 [History Last Taken Unknown] magnesium hydroxide 400 mg/5 mL oral suspension 30 ml PO DAILY PRN ml 02/20/18 [History Last Taken Unknown] furosemide 40 mg tablet 40 mg PO BID 05/02/18 [History Last Taken 10/02/18] levothyroxine 50 mcg tablet 50 mcg PO DAILY 05/02/18 [History Last Taken 02/23/20] allopurinol 100 mg tablet 100 mg PO QHS 10/03/18 [History Last Taken Unknown] docusate sodium 100 mg capsule 100 mg PO DAILY 10/03/18 [History Last Taken Unknown] fluticasone propionate 50 mcg/actuation nasal spray,suspension 1 spray INTRANASAL DAILY 10/03/18 [History Last Taken Unknown] loratadine 10 mg tablet 10 mg PO DAILY 10/03/18 [History Last Taken Unknown] tamsulosin 0.4 mg capsule 0.4 mg PO QHS 04/02/19 [History Last Taken Unknown] guaifenesin 600 mg tablet, extended release 12 hr 600 mg PO Q12H PRN 09/12/19 [History Last Taken Unknown] melatonin 3 mg tablet 3 mg PO QHS 09/12/19 [History Last Taken Unknown] sevelamer carbonate 800 mg tablet 800 mg PO TID 09/12/19 [History Last Taken Unknown] polyethylene glycol 3350 17 gram/dose oral powder 17 g PO DAILY g 09/24/19 [History Last Taken Unknown] artificial tears(hypromellose) 0.2 % eye drops 1 drp OPHTHALMIC BID 12/25/19 [History Last Taken Unknown] buspirone 5 mg tablet 5 mg PO DAILY tab 12/25/19 [History Last Taken Unknown] calcium carbonate 400 mg PO PRN PRN 02/16/20 [History Last Taken Unknown] mupirocin calcium 1 gm NS TID 02/16/20 [History Last Taken Unknown] famotidine 20 mg PO DAILY #90 tab 02/23/20 [Rx Last Taken Unknown] Allergy/AdvReac Type Severity Reaction Status Date / Time doxazosin mesylate Allergy Hives Verified 12/27/20 23:04 [From Cardura] fosinopril sodium Allergy Hives Verified 12/27/20 23:04 [From Monopril] lisinopril Allergy Hives Verified 12/27/20 23:04 morphine Allergy Other Verified 12/27/20 23:04 Family History Father Hypertension Cancer Brother CAD (coronary artery disease) Mother Hypertension Sister Hypertension Son Atrial fibrillation Surgical History history fistulogram (~07/27/17) History of angioplasty History of bilateral hip arthroplasty History of left breast biopsy (~06/2018) 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 S/P peripheral artery angioplasty Status post right partial knee replacement Social History Smoking Status: Former smoker Tobacco: How many years used: 20 second hand exposure: No alcohol intake: never substance use type: does not use caffeine: No what type of physical activity do you participate in: none ROS ROS ED Constitutional Constitutional ED: Denies chills or weight loss Eyes Eyes: Reports other Details: Left eye see HPI ; Denies change in vision or diplopia ENT ENT ED: Denies ear pain, rhinorrhea or sore throat Cardiovascular Cardiovascular: Denies chest pain, orthopnea, palpitations or racing heartbeat Respiratory/Chest Respiratory/Chest: Denies cough, dyspnea or orthopnea Gastrointestinal Gastrointestinal: Denies abdominal pain, diarrhea, nausea or vomiting Genitourinary Genitourinary ED: Denies dysuria, hematuria or urinary frequency Musculoskeletal Musculoskeletal: Denies arthralgias or myalgias Integumentary Denies abscess or rash Neurologic Neurologic: Reports headache(s) and paresthesias; Denies weakness Psychiatric Psychiatric: Denies anxiety, depression, suicidal ideation or suicidal thoughts Endocrine Endocrinology: Denies polydipsia, polyphagia or polyuria Allergic/Immunologic Allergic/Immunologic ED: Denies mouth swelling, tongue swelling or urticaria EXAM Physical Exam Const Vital Signs: 12/27/20 23:04 12/28/20 01:06 Temperature 97.3 F L Temperature Source Temporal Pulse Rate 62 61 Respiratory Rate 19 H 14 Blood Pressure 174/80 H 162/76 H Blood Pressure Mean 111 104 Pulse Ox 96 97 Oxygen Delivery Method Room Air Room Air Positive well nourished and well developed General Appearance ED: well developed HEENT Reports normocephalic, head/scalp atraumatic and moist mucous membranes Eyes PERRL and EOMs intact bilaterally Neck no lymphadenopathy, supple and no JVD Resp normal respiratory effort and clear to auscultation bilaterally Cardio regular rate, regular rhythm and no murmurs GI normal to inspection, nondistended, normoactive bowel sounds and non-tender Palpation: soft Back/Spine no CVA tenderness and normal ROM Extremity normal to inspection General Extremety ED: Negative for edema General Extremity: Negative for edema Neuro oriented x3 and CN's II-XII intact bilaterally Sensorium / Orientation: alert Motor Exam: strength 5/5 throughout Psych mental status grossly normal Mood & Affect: Negative for depressed or tearful Skin no rashes or lesions noted and no wounds STROKE Vital Signs/Narrative: Vital Signs Pulse Resp BP Pulse Ox 12/28/20 01:06 61 14 162/76 H 97 Inital Vital Signs reviewed: Yes NIHSS Initial: 1a Level of Consciousness: 0 1b LOC Questions (Score 2 if aphasic/stupor): 0 1c LOC Commands (Only score 1st attempt): 0 2 Best Gaze (If aphasic, use reflexive mvmts.): 0 3 Visual: 0 4 Facial Palsy: 0 5 Motor Arm Right (UN = amputation/fusion): 0 5 Motor Arm Left: 0 6 Motor Leg Right: 0 6 Motor Leg Left: 0 7 Limb ataxia (Only + if out of proportion): 0 8 Sensory (Aphasia/stupor=0 or 1, coma=2): 0 9 Best Language: 0 10 Dysarthria (mute, coma=2, intubated=UN): 0 11 Extinction and Inattention (only scored if +): 0 Total Score: 0 MDM MDM MDM Narrative Medical decision making narrative: The patient's pressures in the eye average 18 left 20 on the right. My interpretation of the chest x-ray is no acute process. CT the brain negative for acute. Basic blood work negative. Patient does not have any neurologic symptoms on examination. His NIH is 0. He has seen ophthalmology in the past. I will refer him there for further evaluation of his eye. Lab Data Attestation: I reviewed the patient's lab results. Labs: Laboratory Results - last 24 hr 12/28/20 12/28/20 12/28/20 00:30 00:30 00:30 WBC 8.3 RBC 3.46 L Hgb 10.6 L Hct 34.0 L MCV 98.3 H MCH 30.6 MCHC 31.2 L RDW Std Deviation 50.4 H RDW Coeff of Colleen 13.9 Plt Count 183 MPV 10.8 Immature Gran % (Auto) 0.400 Neut % (Auto) 69.0 Lymph % (Auto) 16.1 L [place] % (Auto) 8.5 Eos % (Auto) 5.5 H Baso % (Auto) 0.5 Absolute Neuts (auto) 5.7 Absolute Lymphs (auto) 1.34 Nucleated RBC % 0 PT 14.3 INR 1.2 APTT 35.1 Sodium 136 Potassium 3.7 Chloride 101 Carbon Dioxide 28.0 Anion Gap 7 BUN 71 H Creatinine 6.27 H Estim Creat Clear Calc 8.79 Est GFR (MDRD) Af Amer 11 L Est GFR (MDRD) Non-Af 9 L BUN/Creatinine Ratio 11.3 Glucose 132 H Calcium 8.5 Total Bilirubin 0.30 AST 10 L ALT 14 L Alkaline Phosphatase 100 Troponin I High Sens 39 Total Protein 6.2 L Albumin 3.1 L Globulin 3.1 Albumin/Globulin Ratio 1.0 Radiography Diagnostic Testing: Radiology Impression Brain CT 12/28/20 00:09 IMPRESSION: No acute intracranial findings. Small planum sphenoidale meningioma. Electronically Signed: Manolo Asencio MD at 3:02 EDT Tel , Service support , Chest X-Ray 12/28/20 00:09 IMPRESSION: No acute findings. Chronic interstitial changes and mild emphysema. Electronically Signed: Manolo Asencio MD at 2:58 EDT Tel , Service support , EKG Initial EKG: Attestation: I personally reviewed and interpreted this EKG as follows: Comments: Normal sinus rhythm with a ventricular rate of 64 bpm Discharge Plan Triage Chief Complaint: Neuro S/Sx ED Provider: Esdras Best Dx/Rx/DC Orders Clinical Impression: Acute left eye pain Prescriptions: No Action bisacodyl 10 mg suppository 10 mg RC DAILY PRN (Reason: Constipation) RF: 0 magnesium hydroxide [Milk of Magnesia] 400 mg/5 mL suspension 30 ml PO DAILY PRN (Reason: Indigestion) RF: 0 acetaminophen 325 mg capsule 1,000 mg PO BID RF: 0 allopurinol 100 mg tablet 100 mg PO QHS RF: 0 docusate sodium [Colace] 100 mg capsule 100 mg PO DAILY RF: 0 fluticasone propionate [Allergy Relief (fluticasone)] 50 mcg/actuation spray,suspension 1 spray INTRANASAL DAILY RF: 0 loratadine 10 mg tablet 10 mg PO DAILY RF: 0 polyethylene glycol 3350 [Miralax] 17 gram/dose powder 17 g PO DAILY RF: 0 furosemide 40 mg tablet 40 mg PO BID RF: 0 levothyroxine 50 mcg tablet 50 mcg PO DAILY RF: 0 tamsulosin [Flomax] 0.4 mg capsule 0.4 mg PO QHS RF: 0 artificial tears(hypromellose) 0.2 % eye drops 0.2 % drops 1 drp OPHTHALMIC BID RF: 0 buspirone 5 mg tablet 5 mg PO DAILY RF: 0 finasteride 5 MG tablet 5 mg PO DAILY RF: 0 aspirin 81 MG tablet,chewable 81 mg PO DAILY@0800 RF: 0 nitroglycerin 0.4 MG tablet 0.4 mg SUBLINGUAL Q5M PRN (Reason: Chest Pain) RF: 0 calcium carbonate 200 MG tablet,chewable 400 mg PO PRN PRN (Reason: gerd) RF: 0 mupirocin calcium 1 GM ointment 1 gm NS TID RF: 0 famotidine 20 MG tablet 20 mg PO DAILY Qty: 90 RF: 3 clopidogrel 75 MG tablet 75 mg PO DAILY Qty: 90 RF: 3 pravastatin 20 mg tablet 20 mg PO QHS Qty: 90 RF: 3 melatonin 3 mg tablet 3 mg PO QHS RF: 0 guaifenesin [Mucinex] 600 mg tablet extended release 12hr 600 mg PO Q12H PRN (Reason: Cough) RF: 0 sevelamer carbonate 800 mg tablet 800 mg PO TID RF: 0 Primary Care Provider: Norris Murphy Referrals: Maikel Joyner MD [STAFF PHYSICIAN] - As soon as possible Norris Murphy MD [Primary Care Provider] - As soon as possible Disposition Disposition: Home, Self Care
[2020-12-28 00:39] LABS: Absolute Lymphocyte Count 1.34 X10^3/uL (0.83-4.51); Absolute Neutrophil Count 5.7 X10^3/uL (2.0-7.7); Basophil# 0.04 X10^3/uL; Basophil% 0.5 % (0-1); Eosinophil# 0.46 X10^3/uL; Eosinophils% 5.5 % (0-5); Hemoglobin 10.6 g/dL (13.0-16.5); Lymphocyte # 1.34 X10^3/ul (0.83-4.51); Lymphocyte % 16.1 % (19-41); Mean Corp Hgb Conc 31.2 g/dL (32-36); Mean Corpuscular Hgb 30.6 pg (27.0-32.0); Mean Corpuscular Volume 98.3 fL (80-94); Mean Platelet Vol. 10.8 fl (6.2-12.0); Monocyte# 0.71 X10^3/uL; Monocyte% 8.5 % (0-10); NRBC Flagged by Analyzer 0 % (0-5); Neutrophil # 5.74 X10^3/uL (2.7-7.7); Platelet Count 183 K/mm3 (150-450); RBC Distribution Width CV 13.9 % (11.6-14.6); RBC Distribution Width SD 50.4 fl (35.1-43.9); Red Blood Count 3.46 M/mm3 (4.6-6.2); White Blood Count 8.3 K/mm3 (4.4-11.0)
[2020-12-28 00:54] LABS: International Normalized Ratio 1.2; Prothrombin Time (Protime)PT. 14.3 SECONDS (11.7-14.9)
[2020-12-28 00:55] LABS: Partial Thromboplast Time 35.1 Seconds (24.1-36.2)
[2020-12-28 00:58] LABS: AST(SGOT) 10 U/L (15-37); Alanine Aminotransfer ALT/SGPT 14 U/L (16-61); Albumin, Serum 3.1 g/dL (3.2-5.0); Alkaline Phosphatase 100 U/L (45-117); Anion Gap 7 (5-15); BUN 71 mg/dL (7-18); BUN/Creat Ratio 11.3 RATIO (10-20); Calcium,Total 8.5 mg/dL (8.5-10.1); Chloride 101 mmol/L (98-107); Creatinine, Serum 6.27 mg/dL (0.70-1.30); EST Glomerular Filtration Rate 9 mL/min (>60); Est Glom Filt Rate - Afr Amer 11 mL/min (>60); Estimated Creatinine Clearance 8.79 ml/min; Globulin 3.1 g/dL (2.2-4.2); Glucose 132 mg/dL (74-106); Potassium 3.7 mmol/L (3.5-5.1); Protein, Total 6.2 g/dL (6.4-8.2); Sodium Level 136 mmol/L (136-145); Troponin-I HS 39 pg/mL (3.0-78.0)
[2020-12-28 01:06] VITALS: BP 162/76; PULSE 61; RESP 14; O2SAT 97
--- NOTE | 2020-12-28 03:35 | ED.RN ---
report called to [facility], notified that son would be bringing patient back.
[2020-12-28 03:38] VITALS: BP 175/90; PULSE 68; RESP 17
== END 2020-12-28 03:48 | disposition home or self-care (01) ==
PROVIDERS: Emergency Provider Emergency Medicine; PCP Family Medicine
DX: H57.12 Ocular pain, left eye (principal); R51.9 Headache, unspecified; H53.8 Other visual disturbances; D64.9 Anemia, unspecified; E78.5 Hyperlipidemia, unspecified; F80.2 Mixed receptive-expressive language disorder; G47.33 Obstructive sleep apnea (adult) (pediatric); I13.0 Hypertensive heart and chronic kidney disease with heart failure and stage 1 through stage 4 chronic kidney disease, or unspecified chronic kidney disease; I25.10 Atherosclerotic heart disease of native coronary artery without angina pectoris; I27.20 Pulmonary hypertension, unspecified; K21.9 Gastro-esophageal reflux disease without esophagitis; M19.90 Unspecified osteoarthritis, unspecified site; N18.30 Chronic kidney disease, stage 3 unspecified; N40.0 Benign prostatic hyperplasia without lower urinary tract symptoms; Z79.02 Long term (current) use of antithrombotics/antiplatelets; Z79.82 Long term (current) use of aspirin; Z87.891 Personal history of nicotine dependence; J43.9 Emphysema, unspecified; I70.0 Atherosclerosis of aorta; R94.31 Abnormal electrocardiogram [ECG] [EKG]; D32.9 Benign neoplasm of meninges, unspecified; Z82.49 Family history of ischemic heart disease and other diseases of the circulatory system; Z96.651 Presence of right artificial knee joint
CPT/HCPCS: 70450; 71045; 80053; 84484; 85025; 85610; 85730; 93005; 99285

== ENCOUNTER 2021-05-19 08:42 | Outpatient (CLI) | payer MEDICARE, BC, MEDICAID, SELFPAY ==
--- NOTE | 2021-05-19 08:46 | AVDS_ITS ---
Reason For Study: Dialysis dependence LEFT Inflow artery, 264.9/139.5 cm/sec. Inflow artery, 1354 ml/min. Prox anastomosis, 483.7/217.5 cm/sec. Prox anastomosis, 2158 ml/min. Prox graft, 350.8/186.4 cm/sec. Prox graft, 8087 ml/min. Mid graft, 88.8/57.7 cm/sec. Mid graft, 3273 ml/min. Distal graft, 427.3/215.6 cm/sec. Distal graft, 2370 ml/min. Outflow vein, 86.9/44.9 cm/sec. Outflow vein, 988.7 ml/min. 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 No evidence for flow restriction or stenosis. Aneurysmal change proximal fistula at 1.78 x 2 cm in diameter Aneurysmal change left mid fistula at 1.48 x 1.56 cm in diameter Aneurysmal change distal fistula at 1.85 x 2.09 cm in diameter Branching is noted distally in the fistula Ordering Physician: Jaylin eNw Referring Physician: Yanet Ochoa Performed By: Celena Benitez RVT
== END 2021-05-19 23:59 | disposition short-term general hospital (02) ==
LOC: CVS 08:44
PROVIDERS: PCP Internal Medicine Infectious Disease; Referring Provider Physician Assistant; Visit Provider Physician Assistant
DX: Z99.2 Dependence on renal dialysis (principal)
CPT/HCPCS: 93990

== ENCOUNTER → 2022-01-05 | Outpatient (CLI) | payer MEDICARE, BC, MEDICAID, SELFPAY ==
[2022-01-05 09:08] LABS: Absolute Lymphocyte Count 1.51 X10^3/uL (0.83-4.51); Absolute Neutrophil Count 5.1 X10^3/uL (2.0-7.7); Basophil# 0.06 X10^3/uL; Basophil% 0.8 % (0-1); Eosinophil# 0.41 X10^3/uL; Eosinophils% 5.3 % (0-5); Hematocrit 38.3 % (40-54); Hemoglobin 12.3 g/dL (13.0-16.5); Lymphocyte # 1.51 X10^3/ul (0.83-4.51); Lymphocyte % 19.4 % (19-41); Mean Corp Hgb Conc 32.1 g/dL (32-36); Mean Corpuscular Volume 93.4 fL (80-94); Mean Platelet Vol. 10.3 fl (6.2-12.0); Monocyte# 0.75 X10^3/uL; Monocyte% 9.6 % (0-10); NRBC Flagged by Analyzer 0 % (0-5); Neutrophil # 5.05 X10^3/uL (2.7-7.7); Neutrophil % 64.6 % (47-70); Platelet Count 216 K/mm3 (150-450); RBC Distribution Width CV 13.6 % (11.6-14.6); RBC Distribution Width SD 46.5 fl (35.1-43.9); White Blood Count 7.8 K/mm3 (4.4-11.0)
[2022-01-05 09:18] LABS: Anion Gap 10 (5-15); BUN 28 mg/dL (7-18); BUN/Creat Ratio 5.4 RATIO (10-20); Calcium,Total 9.7 mg/dL (8.5-10.1); Chloride 96 mmol/L (98-107); Creatinine, Serum 5.21 mg/dL (0.70-1.30); EST Glomerular Filtration Rate 11 mL/min (>60); Est Glom Filt Rate - Afr Amer 14 mL/min (>60); Glucose 205 mg/dL (74-106); Potassium 3.8 mmol/L (3.5-5.1); Sodium Level 138 mmol/L (136-145)
== END | disposition home or self-care (01) ==
LOC: PAVLAB 08:36
PROVIDERS: PCP Internal Medicine Infectious Disease; Referring Provider Physician Assistant; Visit Provider Physician Assistant
DX: T82.898A Other specified complication of vascular prosthetic devices, implants and grafts, initial encounter (principal)
CPT/HCPCS: 36415; 80048; 85025

== ENCOUNTER 2022-01-30 11:13 | Emergency (ER) | payer MEDICARE, BC, MEDICAID, SELFPAY ==
[2022-01-30 11:14] VITALS: BP 149/89; PULSE 94; RESP 21; TEMP 36.1; O2SAT 96; BMI 39.6
--- NOTE | 2022-01-30 11:44 | EKG12_ITS ---
Test Reason : S/P CP Blood Pressure : / mmHG Vent. Rate : 101 BPM Atrial Rate : 000 BPM P-R Int : 000 ms QRS Dur : 112 ms QT Int : 302 ms P-R-T Axes : 000 -31 170 degrees QTc Int : 391 ms Sinus vs Ectopic Atrial Rhythm with prolonged ND interval Left axis deviation Incomplete left bundle branch block Left ventricular hypertrophy with repolarization abnormality ( Mahin product ) Abnormal ECG Confirmed by DIONNE HOWE, SY ([id number]), medical transcription editor AMENA OLIVER ([id number]) on 02/01/2022 9:18:31 AM Referred By: SILVANO Confirmed By:SY TRUONG MD
[2022-01-30 12:00] VITALS: O2SAT 97
--- NOTE | 2022-01-30 12:05 | RAD_ITS ---
STUDY: X-RAY CHEST REASON FOR EXAM: Male, 81 years old. Chest pain. TECHNIQUE: Single AP portable view of the chest. COMPARISON: Comparison is made with prior study dated 12/28/2020. FINDINGS: EKG electrodes are seen. Stable calcified pleural plaques in both upper lobes more prominent on the left side. Scattered calcified granulomas. There is no demonstrated pleural abnormality. Normal size heart. Normal mediastinum and iftikhar. Normal visualized pulmonary arteries. There is atherosclerotic tortuosity of the aortic arch and descending thoracic aorta. There are degenerative changes of the visualized thoracic spine. Normal visualized ribs, clavicles, and shoulders. There is no demonstrated abnormality of the visualized soft tissue structures of the upper abdomen. RAD/Chest 1 View (Portable) IMPRESSION: Stable calcified pleural plaques overlying both upper lobes. Electronically Signed: Paul Escalante MD at 12:33 EDT ,
--- NOTE | 2022-01-30 12:14 | EDS_ITS ---
HPI History of Present Illness Chief Complaint: Palpitations Narrative Narrative: Patient with past medical history of end-stage renal disease, on dialysis Sunday, Sunday, and Sunday, completed his dialysis today, then at 1030, approximately an hour and a half ago, presents with chest pain that lasted for about that period of time. Its in the left side of his chest and more towards the middle also. He denies any nausea or vomiting. No diaphoresis or shortness of breath. No palpitations. He just states that he had pain that has now resolved. No exacerbating or alleviating factors. [facility] Medical History Abnormal electrocardiogram Abnormal nuclear stress test Acute renal insufficiency Angina pectoris Arthritis 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 Benign essential hypertension Benign prostatic hypertrophy without lower urinary tract symptoms BMI 40.0-44.9, adult Breast mass, left Chest pain Chest pain on exertion Chronic kidney disease Chronic renal failure, stage 3 (moderate) Coronary artery disease Diastolic heart failure Essential hypertension Fatigue Gastroesophageal reflux disease Hyperlipidemia Hypertension Hypokalemia Long-term use of high-risk medication Melanotic stools Normochromic normocytic anemia ALY (obstructive sleep apnea) Pulmonary hypertension Shortness of breath Sinus bradycardia Skin lesion Home Medications aspirin 81 mg chewable tablet 81 mg PO DAILY@0800 04/01/14 [History Last Taken 10/02/18] finasteride 5 mg tablet 5 mg PO DAILY 04/01/14 [History Last Taken 10/02/18] nitroglycerin 0.4 mg sublingual tablet 0.4 mg sublingual Q5M PRN Chest Pain 02/01/15 [History Last Taken 02/27/15] clopidogrel 75 mg tablet 75 mg PO DAILY #90 tabs 06/12/17 [Rx Last Taken 10/02/18] pravastatin 20 mg tablet 20 mg PO QHS #90 tabs 08/08/17 [Rx Last Taken 12/04/17] acetaminophen 325 mg capsule 650 mg PO Q6H PRN PRN pain/fever 02/20/18 [History Last Taken Unknown] furosemide 40 mg tablet 40 mg PO BID 05/02/18 [History Last Taken 10/02/18] levothyroxine 50 mcg tablet 50 mcg PO DAILY 05/02/18 [History Last Taken 02/23/20] allopurinol 100 mg tablet 100 mg PO QHS 10/03/18 [History Last Taken Unknown] loratadine 10 mg tablet 10 mg PO DAILY 10/03/18 [History Last Taken Unknown] tamsulosin 0.4 mg capsule (Flomax) 0.4 mg PO QHS 04/02/19 [History Last Taken Unknown] buspirone 5 mg tablet 5 mg PO BID 12/25/19 [History Last Taken Unknown] acetaminophen 325 mg tablet 325 mg PO TID 01/30/22 [History Last Taken Unknown] artificial tears(uiqlriw-[id number]-vihsvww) 0.1 %-0.3 %-0.2 % eye drops 1 drp EACH EYE BID 01/30/22 [History Last Taken Unknown] citalopram 10 mg tablet 10 mg PO TID 01/30/22 [History Last Taken Unknown] ibuprofen 200 mg tablet 200 mg PO Q6H PRN pain/fever 01/30/22 [History Last Taken Unknown] lidocaine 5 % topical ointment 1 applic topical DAILY PRN dialysis 01/30/22 [History Last Taken Unknown] multivitamin 1 tab PO DAILY 01/30/22 [History Last Taken Unknown] ondansetron 4 mg disintegrating tablet 4 mg PO Q6H PRN Nausea 01/30/22 [History Last Taken Unknown] pantoprazole 20 mg tablet,delayed release 20 mg PO DAILY 01/30/22 [History Last Taken Unknown] Allergy/AdvReac Type Severity Reaction Status Date / Time doxazosin mesylate Allergy Hives Verified 01/30/22 11:19 [From Cardura] fosinopril sodium Allergy Hives Verified 01/30/22 11:19 [From Monopril] lisinopril Allergy Hives Verified 01/30/22 11:19 morphine Allergy Other Verified 01/30/22 11:19 Family History Father Hypertension Cancer Brother CAD (coronary artery disease) Mother Hypertension Sister Hypertension Son Atrial fibrillation Surgical History history fistulogram (~07/27/17) History of angioplasty History of bilateral hip arthroplasty History of left breast biopsy (~06/2018) 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 S/P peripheral artery angioplasty Status post right partial knee replacement Social History Smoking Status: Former smoker Tobacco: How many years used: 20 second hand exposure: No alcohol intake: never substance use type: does not use caffeine: No what type of physical activity do you participate in: none ROS ROS ED ROS Narrative Constitutional: No fever, no chills. HEENT: No sore throat. No neck pain. No loss of vision. No rhinorrhea. Cardiovascular: Left-sided to midsternal chest pain. No palpitations. No pedal edema. Respiratory: No cough, no shortness of breath. Abdominal: No abdominal pain. No nausea. No vomiting. Genitourinary: No dysuria. No hematuria. Musculoskeletal: No myalgias. No arthralgias. Neurologic: No headaches. No dizziness. No lightheadedness. Skin: No rash. No change in color. Psychiatric: No depression. No anxiety. EXAM Physical Exam Narrative Exam Narrative: Afebrile. Vital signs noted. HEENT: Normocephalic. Atraumatic. PERRL, EOMI. Neck soft and supple. No point tenderness or step off. Cardiovascular: Regular rate and rhythm with intermittent tachycardia. No murmurs, rubs, or gallops appreciated. Respiratory: No tachypnea. Lungs clear to auscultation bilaterally. Gastrointestinal: Abdomen soft, nontender, with normoactive bowel sounds. No rebound or guarding. Neurological: Awake. Alert. Nonfocal, nonlateralizing. Skin: No rash. Normal color. No pallor. Musculoskeletal: No pedal edema. Full range of motion extremities. Const Vital Signs: 01/30/22 11:14 01/30/22 11:37 01/30/22 12:00 Temperature 97.0 F L Temperature Source Temporal Pulse Rate 94 Respiratory Rate 21 H Respiratory Pattern Normal Blood Pressure 149/89 H Blood Pressure Mean 109 Pulse Ox 96 97 Oxygen Delivery Method Room Air Room Air 01/30/22 13:00 01/30/22 15:00 Temperature Temperature Source Pulse Rate 94 99 Respiratory Rate 16 14 Respiratory Pattern Blood Pressure 152/92 H 147/86 H Blood Pressure Mean 112 106 Pulse Ox 100 99 Oxygen Delivery Method Room Air Room Air Heart Score History: Slightly/Non-Suspicious ECG: Normal Age: >45 - <65 years Risk Factors: >/= 3 Risk Factors or History of CAD Score: 3 MDM MDM MDM Narrative Medical decision making narrative: EKG was obtained interpreted by myself which is being read as accelerated junctional rhythm at [address] changes except perhaps a millimeter of ST depression in V4 through V6, no STEMI. There is no significant change however from a previous EKG which was normal sinus. He states he sees Dr. Pastrana's his employee relations representative. Chest pain work-up was pursued. His CBC shows normal white count of 7.4, hemoglobin normal at 13.3, hematocrit 40.9. Platelet count normal at 183. Electrolyte panel is notable for chloride of 96 b ut a normal sodium of 136. BUN of 31 and creatinine 4.19 consistent with his chronic kidney disease and end-stage renal disease. Initial high-sensitivity troponin 47, repeat is 44 for a delta troponin of less than 7. Chest x-ray interpreted by myself shows no acute process. Patient is currently pain-free. I feel he be discharged safely home with follow-up. In review of his EMR, he had remote drug-eluting stents placed in the LAD in 2004, and in the mid RCA in 2014. Management has been medical. I discussed the patient with Dr. Dudley who agrees with outpatient follow-up with Dr. Pastrana. Return instructions to the emergency department were reviewed. Disposition is discharged home in stable condition. Lab Data Labs: Laboratory Results - last 24 hr 01/30/22 01/30/22 01/30/22 11:55 11:55 14:30 WBC 7.4 RBC 4.43 L Hgb 13.3 Hct 40.9 MCV 92.3 MCH 30.0 MCHC 32.5 RDW Std Deviation 46.7 H RDW Coeff of Colleen 13.8 Plt Count 183 MPV 10.8 Immature Gran % (Auto) 0.700 Neut % (Auto) 68.5 Lymph % (Auto) 17.5 L Wirt % (Auto) 8.6 Eos % (Auto) 4.2 Baso % (Auto) 0.5 Absolute Neuts (auto) 5.0 Absolute Lymphs (auto) 1.29 Nucleated RBC % 0 Sodium 136 Potassium 4.3 Chloride 96 L Carbon Dioxide 33.0 H Anion Gap 7 BUN 31 H Creatinine 4.19 H Estim Creat Clear Calc 12.49 Est GFR (MDRD) Af Amer 18 L Est GFR (MDRD) Non-Af 15 L BUN/Creatinine Ratio 7.4 L Glucose 155 H Calcium 9.5 Troponin I High Sens 47 44 Radiography Diagnostic Testing: Clinical Impression(s) from Imaging Studies Chest X-Ray 01/30/22 12:05 IMPRESSION: Stable calcified pleural plaques overlying both upper lobes. Electronically Signed: Paul Escalante MD at 12:33 EDT , Discharge Plan Triage Chief Complaint: Palpitations ED Provider: Laron Moralez Dx/Rx/DC Orders Clinical Impression: Chest pain, Chronic kidney disease, Dialysis patient Prescriptions: No Action acetaminophen 325 mg capsule 650 mg PO Q6H PRN PRN (Reason: pain/fever) allopurinol 100 mg tablet 100 mg PO QHS loratadine 10 mg tablet 10 mg PO DAILY furosemide 40 mg tablet 40 mg PO BID levothyroxine 50 mcg tablet 50 mcg PO DAILY tamsulosin [Flomax] 0.4 mg capsule 0.4 mg PO QHS buspirone 5 mg tablet 5 mg PO BID finasteride 5 MG tablet 5 mg PO DAILY Label Comments: PROSTATE aspirin 81 MG tablet,chewable 81 mg PO DAILY@0800 Label Comments: BLOOD THINNER/HEART nitroglycerin 0.4 MG tablet 0.4 mg SUBLINGUAL Q5M PRN (Reason: Chest Pain) Label Comments: CHEST PAIN multivitamin [Multi-Daily] Tablet 1 tab PO DAILY acetaminophen 325 mg Tablet 325 mg PO TID citalopram 10 mg Tablet 10 mg PO TID ibuprofen 200 mg Tablet 200 mg PO Q6H PRN (Reason: pain/fever) ondansetron 4 mg Tablet,Disintegrating 4 mg PO Q6H PRN (Reason: Nausea) artificial tear(dkspo-hwu-xxb) 0.1-0.3-0.2 % Drops 1 drp EACH EYE BID lidocaine 5 % Ointment 1 applic TOPICAL DAILY PRN (Reason: dialysis) pantoprazole 20 mg Tablet,Delayed Release (Dr/Ec) 20 mg PO DAILY clopidogrel 75 MG tablet 75 mg PO DAILY Qty: 90 3RF pravastatin 20 mg tablet 20 mg PO QHS Qty: 90 3RF Primary Care Provider: Yanet Ochoa Referrals: Norris Pastrana MD [Med Staff - Active Staff] - 3-5 Days Yanet Ochoa MD [Primary Care Provider] - Disposition Disposition: Home, Self Care
[2022-01-30 12:20] LABS: Absolute Lymphocyte Count 1.29 X10^3/uL (0.83-4.51); Basophil# 0.04 X10^3/uL; Basophil% 0.5 % (0-1); Eosinophil# 0.31 X10^3/uL; Eosinophils% 4.2 % (0-5); Hematocrit 40.9 % (40-54); Hemoglobin 13.3 g/dL (13.0-16.5); Lymphocyte # 1.29 X10^3/ul (0.83-4.51); Lymphocyte % 17.5 % (19-41); Mean Corp Hgb Conc 32.5 g/dL (32-36); Mean Corpuscular Volume 92.3 fL (80-94); Mean Platelet Vol. 10.8 fl (6.2-12.0); Monocyte# 0.63 X10^3/uL; Monocyte% 8.6 % (0-10); NRBC Flagged by Analyzer 0 % (0-5); Neutrophil # 5.04 X10^3/uL (2.7-7.7); Neutrophil % 68.5 % (47-70); Platelet Count 183 K/mm3 (150-450); RBC Distribution Width CV 13.8 % (11.6-14.6); RBC Distribution Width SD 46.7 fl (35.1-43.9); Red Blood Count 4.43 M/mm3 (4.6-6.2); White Blood Count 7.4 K/mm3 (4.4-11.0)
[2022-01-30 12:26] LABS: Anion Gap 7 (5-15); BUN 31 mg/dL (7-18); BUN/Creat Ratio 7.4 RATIO (10-20); Calcium,Total 9.5 mg/dL (8.5-10.1); Chloride 96 mmol/L (98-107); Creatinine, Serum 4.19 mg/dL (0.70-1.30); EST Glomerular Filtration Rate 15 mL/min (>60); Est Glom Filt Rate - Afr Amer 18 mL/min (>60); Estimated Creatinine Clearance 12.49 ml/min; Glucose 155 mg/dL (74-106); Potassium 4.3 mmol/L (3.5-5.1); Sodium Level 136 mmol/L (136-145); Troponin-I HS (w/2H Reflex) 47 pg/mL (3.0-78.0)
[2022-01-30 13:00] VITALS: BP 152/92; PULSE 94; RESP 16; O2SAT 100
[2022-01-30 14:04] LABS: Reflex Troponin-HS? (from REC) Y
[2022-01-30 15:00] VITALS: BP 147/86; PULSE 99; RESP 14; O2SAT 99
[2022-01-30 15:01] LABS: Troponin-I HS 44 pg/mL (3.0-78.0)
[2022-01-30 15:17] VITALS: BP 147/86; PULSE 99; RESP 14; O2SAT 99
== END 2022-01-30 15:41 | disposition home or self-care (01) ==
PROVIDERS: Emergency Provider Emergency Medicine; PCP Internal Medicine Infectious Disease; Visit Provider Emergency Medicine
DX: R07.9 Chest pain, unspecified (principal); I13.2 Hypertensive heart and chronic kidney disease with heart failure and with stage 5 chronic kidney disease, or end stage renal disease; Z99.2 Dependence on renal dialysis; I50.32 Chronic diastolic (congestive) heart failure; N18.30 Chronic kidney disease, stage 3 unspecified; I25.10 Atherosclerotic heart disease of native coronary artery without angina pectoris; E78.5 Hyperlipidemia, unspecified; Z87.891 Personal history of nicotine dependence; R00.2 Palpitations
CPT/HCPCS: 71045; 80048; 84484; 85025; 93005; 99285; A4216

== ENCOUNTER → 2022-02-09 | Day surgery (SDC) | payer MEDICARE, BC, MEDICAID, SELFPAY ==
--- NOTE | 2022-02-09 12:07 | PCM.HP.BLA ---
History and Physical Date of Admission: 02/09/22 Visit Reasons:?CHECK FISTULA Chief Complaint: Fistula Check Anthropology Faculty Member Required: No Is patient in pain?: No Allergies doxazosin mesylate [From Cardura] Allergy (Verified 01/05/22 08:00) Hivesfosinopril sodium [From Monopril] Allergy (Verified 01/05/22 08:00) Hiveslisinopril Allergy (Verified 01/05/22 08:00) Hivesmorphine Allergy (Verified 01/05/22 08:00) Other Medications aspirin 81 mg chewable tablet 81 mg PO DAILY@0800 04/01/14 [History Confirmed 01/05/22] finasteride 5 mg tablet 5 mg PO DAILY 04/01/14 [History Confirmed 01/05/22] nitroglycerin 0.4 mg sublingual tablet 0.4 mg sublingual Q5M PRN Chest Pain 02/01/15 [History Confirmed 01/05/22] clopidogrel 75 mg tablet 75 mg PO DAILY #90 tabs 06/12/17 [Rx Confirmed 01/05/22] pravastatin 20 mg tablet 20 mg PO QHS #90 tabs 08/08/17 [Rx Confirmed 01/05/22] acetaminophen 325 mg capsule 1,000 mg PO BID 02/20/18 [History Confirmed 01/05/22] bisacodyl 10 mg rectal suppository 10 mg VT DAILY PRN Constipation 02/20/18 [History Confirmed 01/05/22] magnesium hydroxide 400 mg/5 mL oral suspension (Milk of Magnesia) 30 ml PO DAILY PRN Indigestion 02/20/18 [History Confirmed 01/05/22] furosemide 40 mg tablet 40 mg PO BID 05/02/18 [History Confirmed 01/05/22] levothyroxine 50 mcg tablet 50 mcg PO DAILY 05/02/18 [History Confirmed 01/05/22] allopurinol 100 mg tablet 100 mg PO QHS 10/03/18 [History Confirmed 01/05/22] docusate sodium 100 mg capsule (Colace) 100 mg PO DAILY 10/03/18 [History Confirmed 01/05/22] fluticasone propionate 50 mcg/actuation nasal spray,suspension (Allergy Relief (fluticasone)) 1 spray intranasal DAILY 10/03/18 [History Confirmed 01/05/22] loratadine 10 mg tablet 10 mg PO DAILY 10/03/18 [History Confirmed 01/05/22] tamsulosin 0.4 mg capsule (Flomax) 0.4 mg PO QHS 04/02/19 [History Confirmed 01/05/22] guaifenesin 600 mg tablet, extended release 12 hr (Mucinex) 600 mg PO Q12H PRN Cough 09/12/19 [History Confirmed 01/05/22] melatonin 3 mg tablet 3 mg PO QHS 09/12/19 [History Confirmed 01/05/22] sevelamer carbonate 800 mg tablet 800 mg PO TID 09/12/19 [History Confirmed 01/05/22] polyethylene glycol 3350 17 gram/dose oral powder (Miralax) 17 g PO DAILY 09/24/19 [History Confirmed 01/05/22] artificial tears(hypromellose) 0.2 % eye drops 1 drp ophthalmic (eye) BID 12/25/19 [History Confirmed 01/05/22] buspirone 5 mg tablet 5 mg PO DAILY 12/25/19 [History Confirmed 01/05/22] calcium carbonate 200 mg calcium (500 mg) chewable tablet 400 mg PO PRN PRN gerd 02/16/20 [History Confirmed 01/05/22] mupirocin calcium 2 % nasal ointment 1 g NS TID right nostril 02/16/20 [History Confirmed 01/05/22] famotidine 20 mg tablet 20 mg PO DAILY #90 tabs 02/23/20 [Rx Confirmed 01/05/22] PFSH Medical History? Abnormal electrocardiogram Abnormal nuclear stress test Acute renal insufficiency Angina pectoris Arthritis Atherosclerosis of [place] coronary artery of [place] heart without angina pectoris Benign essential hypertension Benign prostatic hypertrophy without lower urinary tract symptoms BMI 40.0-44.9, adult Breast mass, left Chest pain Chest pain on exertion Chronic kidney disease Chronic renal failure, stage 3 (moderate) Coronary artery disease Diastolic heart failure Essential hypertension Fatigue Gastroesophageal reflux disease Hyperlipidemia Hypertension Hypokalemia Long-term use of high-risk medication Melanotic stools Normochromic normocytic anemia ALY (obstructive sleep apnea) Pulmonary hypertension Shortness of breath Sinus bradycardia Skin lesion Surgical History? history fistulogram (~07/27/17) History of angioplasty History of bilateral hip arthroplasty History of left breast biopsy (~06/2018) 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 S/P peripheral artery angioplasty Status post right partial knee replacement Family History? Father Hypertension CancerBrother CAD (coronary artery disease)Mother HypertensionSister HypertensionSon Atrial fibrillation Social History? Smoking Status:? Former smoker Tobacco: How many years used:? 20 second hand exposure:? No alcohol intake:? never substance use type:? does not use caffeine:? No what type of physical activity do you participate in:? none HPI HPI Surgical H&P: Yes HPI: Patient is an 81 y/o M I am following for problem with dialysis access. Patient states for a few weeks the dialysis center has had difficulty during treatments with the machine alarming and having to reposition the needles. Patient denies any discomfort or pin with the fistula. He states he is able to fully complete treatments. He dialyzes on [facility] in [place]. Patient's last office visit was in April 2021 with problem with dialysis access. An AV graft duplex was obtained on 05/19/21 which demonstrated a widely patent left upper extremity AV fistula with high flow rates. Results were provided to the dialysis center. Patient's last fistulogram was performed on 10/02/18 which demonstrated left forearm high-grade venous stenosis x 3 areas. Stenosis was successfully treated with an 8 x 20 mm conquest angioplasty utilizing double access. Patient is maintained on aspirin and Plavix. ROS General General: No weight change, appetite, fatigue, colon cancer, breast cancer or weakness HEENT HEENT: No difficulty swallowing, eye injury, eye surgery, swollen glands or hoarseness Endo Endocrine: No thyroid disease, diabetes mellitus, thyroid cancer, Hair loss, heat intolerance or cold intolerance Skin Skin: No rash or changing moles Breast Breast: No left breast lump, right breast lump, nipple discharge, breast pain, abnormal mammogram, abnormal US or breast enlargement Musc Musculoskeletal: Yes back problems and arthritis; No rheumatoid arthritis, gout or joint pain Cardio Cardiovascular: Yes heart disease and heart stent; No murmur, pacemaker, atrial fibrillation, high blood pressure, heart attack, palpitations, shortness of breat with exertion or chest pain Psych Psychiatric: No depression, anxiety or hearing voices Resp Respiratory: Yes shortness of breath, Yes sleep apnea, Yes cough, Yes COPD, No asthma, No emphysema and No wheezing Gastro Gastrointestinal: No abdominal pain, No nausea or vomiting, No diarrhea, No constipation, No blood in stool, No acid reflux, No hemorrhoids, No ulcers, No gallbladder problem and No black,tarry stools [place] Hematologic: Yes blood thinners, No blood disorders, No bleeding, No anemia and No blood clots Neuro Neurologic: No system reviewed and no additional complaints, except as documented, No as per HPI, No abnormal gait, No abnormal hearing, No abnormal movements, No abnormal speech, No behavioral changes, No burning sensations, No confusion, No convulsions, No disequilibrium, No dizziness, No localized weakness, No frequent falls, No headache(s), No lack of coordination, No loss of vision, No memory loss, Yes numbness, No other visual disturbances, No radicular pain, No restless legs, No sensory deficit, No syncope, Yes tingling, No tremor(s), No weakness and No other Exam Const General: cooperative, healthy appearing and comfortable [facility] Head: normal to inspection Eyes General: appearance normal, both eyes and all related structures Neck Neck: normal visual inspection Neck mass: No Chest Chest palpation & inspection: normal inspection of the chest Resp Effort & Inspection: normal respiratory effort and able to speak in complete sentences Auscultation: clear to auscultation bilaterally Cardio Rate: regular rate Rhythm: regular rhythm GI Inspection: obesity Auscultation: hypoactive bowel sounds Musc Cervical Spine: normal cervical lordosis Skin General: no rashes or lesions noted Neuro General: no focal motor deficits and CN's II-XI intact bilaterally Extrem Other: Left forearm AV fistula- multiple areas of aneurysmal changes. Good pulse, diminished bruit and thrill throughout the fistula. Random needle stick technique noted. Psych Appearance: grossly normal Affect: normal affect Assessment and Plan Assessment and Plan (1) Problem with dialysis access: ?Status:?Acute ?Qualifiers: ?Encounter type:?initial encounter? Qualified Code(s):?T82.898A - Other specified complication of vascular prosthetic devices, implants and grafts, initial encounter ?Plan: Dr. Brown will plan to perform an elective left forearm fistulogram with possible intervention possible double access may be needed. Procedure details, risks and benefits have been explained. Patient will hold his Plavix for 2 days. He may continue on his aspirin. Patient and his son have had the opportunity to ask and have questions answered. Patient verbally understands and agrees with the plan. I have re-examined the patient. There are no clinical changes since date of exam. Liam Brown M.D., F.A.C.S.
--- NOTE | 2022-02-09 13:16 | OP.PCM_ITS ---
Report of Operation Date of Procedure: 02/09/22 Pre-Operative Diagnosis: Diminished flow left forearm radiocephalic hemodialysis fistula Post-Operative Diagnosis: Venous stenosis proximal left forearm Surgery/Procedure Performed:: Left upper extremity fistulogram with 8 x 2 conq uest angioplasty Description of Surgical Findings:: Timeout informed consent was obtained. 81-year-old gentleman was taken to the special procedures lab placed upon the table. He had had breakfast so no IV sedative was given. The left upper extremity was sterilely prepped and draped. Based upon previous imaging I thought that I could get to his area stenosis by accessing closer to the antecubital as well as in performing it retrograde with flow. I used ultrasound to access the cephalic vein just distal to the antecubital space 2% lidocaine was instilled micropuncture needle was inserted micropuncture wire inserted 6 [place] short sheath was inserted however despite multiple attempts I was not able to advance a 035 angled Glidewire and 4 [place] angled glide cath. Therefore I went back down to the wrist again used 2% lidocaine used a micropuncture needle gained antegrade access micropuncture wire 6 [place] short sheath dilator and then using Isovue contrast fistulogram was seen in the entire left upper arm this demonstrated that just distal to the antecubital space very close to where I was trying to access there was an area of 70% stenosis. I was able to get antegrade Glidewire past this then used a 8 x 2 conquest balloon and after several different insufflations demonstrated improvement. We finishes the images for the upper arm. Sheath removed U suture zero 4-0 nylon was placed no apparent complication patient had a good thrill and bruit at the completion Images demonstrate a left forearm radiocephalic arteriovenous fistula with 2 areas of aneurysmal change in the forearm there is good cephalic and basilic vein upper arm outflow and good central venous outflow. There is an area of significant stenosis just distal to the antecubital crease which was resolved with 8 x 2 conquest angioplasty If the patient has recurrent stenosis I would consider at least a 9 mm or 10 mm balloon in the future. Liam Brown M.D., F.A.C.S. Surgeon: Liam Brown Type of Anesthesia: Local
== END | disposition home or self-care (01) ==
LOC: CLSP 11:31
PROVIDERS: PCP Internal Medicine Infectious Disease; Referring Provider Surgery; Visit Provider Surgery
DX: T82.898A Other specified complication of vascular prosthetic devices, implants and grafts, initial encounter (principal); I13.0 Hypertensive heart and chronic kidney disease with heart failure and stage 1 through stage 4 chronic kidney disease, or unspecified chronic kidney disease; I50.30 Unspecified diastolic (congestive) heart failure; N18.30 Chronic kidney disease, stage 3 unspecified; I87.2 Venous insufficiency (chronic) (peripheral); I25.10 Atherosclerotic heart disease of native coronary artery without angina pectoris; G47.33 Obstructive sleep apnea (adult) (pediatric); N40.0 Benign prostatic hyperplasia without lower urinary tract symptoms; E78.5 Hyperlipidemia, unspecified; Z79.82 Long term (current) use of aspirin; Z79.899 Other long term (current) drug therapy; Z87.891 Personal history of nicotine dependence; X58.XXXA Exposure to other specified factors, initial encounter
CPT/HCPCS: 36902; 76937; Q9967; C1725; C1769

== ENCOUNTER 2022-04-01 04:40 | Emergency (ER) | payer MEDICARE, BC, MEDICAID, SELFPAY ==
[2022-04-01 04:42] VITALS: PULSE 82; RESP 15; TEMP 36.8; O2SAT 94; BMI 39.5
--- NOTE | 2022-04-01 05:41 | EDS_ITS ---
HPI History of Present Illness Chief Complaint: Other, Pain/Inj Informant: patient Narrative Narrative: Patient is an 81-year-old male with complex medical history including end-stage renal disease on hemodialysis. He has an AV fistula in his left forearm. Patie nt states during dialysis yesterday he had significant pain when it was accessed. He now has bruising. He states during dialysis the pain was going up into his bicep. He was able to complete dialysis. He has pain in the middle of his fistula and is worried about its ability to function. The fistula was placed and is monitored by Dr. Brown. Patient has no other complaints at this time. [facility] Medical History Abnormal electrocardiogram Abnormal nuclear stress test Acute renal insufficiency Angina pectoris Arthritis Atherosclerosis of [place] coronary artery of [place] heart without angina pectoris Benign essential hypertension Benign prostatic hypertrophy without lower urinary tract symptoms BMI 40.0-44.9, adult Breast mass, left Chest pain Chest pain on exertion Chronic kidney disease Chronic renal failure, stage 3 (moderate) Coronary artery disease Diastolic heart failure Essential hypertension Fatigue Gastroesophageal reflux disease Hyperlipidemia Hypertension Hypokalemia Long-term use of high-risk medication Melanotic stools Normochromic normocytic anemia ALY (obstructive sleep apnea) Pulmonary hypertension Shortness of breath Sinus bradycardia Skin lesion Home Medications aspirin 81 mg chewable tablet 81 mg PO DAILY@0800 04/01/14 [History Last Taken 02/06/22] finasteride 5 mg tablet 5 mg PO DAILY 04/01/14 [History Last Taken 10/02/18] nitroglycerin 0.4 mg sublingual tablet 0.4 mg sublingual Q5M PRN Chest Pain 02/01/15 [History Last Taken 02/27/15] clopidogrel 75 mg tablet 75 mg PO DAILY #90 tabs 06/12/17 [Rx Last Taken 02/06/22] pravastatin 20 mg tablet 20 mg PO QHS #90 tabs 08/08/17 [Rx Last Taken 12/04/17] acetaminophen 325 mg capsule 650 mg PO Q6H PRN PRN pain/fever 02/20/18 [History Last Taken Unknown] furosemide 40 mg tablet 40 mg PO BID 05/02/18 [History Last Taken 10/02/18] levothyroxine 50 mcg tablet 50 mcg PO DAILY 05/02/18 [History Last Taken 02/23/20] allopurinol 100 mg tablet 100 mg PO QHS 10/03/18 [History Last Taken Unknown] loratadine 10 mg tablet 10 mg PO DAILY 10/03/18 [History Last Taken Unknown] tamsulosin 0.4 mg capsule (Flomax) 0.4 mg PO QHS 04/02/19 [History Last Taken Unknown] buspirone 5 mg tablet 5 mg PO BID 12/25/19 [History Last Taken Unknown] acetaminophen 325 mg tablet 325 mg PO TID 01/30/22 [History Last Taken Unknown] artificial tears([id number]-[id number]) 0.1 %-0.3 %-0.2 % eye drops 1 drp EACH EYE BID 01/30/22 [History Last Taken Unknown] citalopram 10 mg tablet 10 mg PO TID 01/30/22 [History Last Taken Unknown] ibuprofen 200 mg tablet 200 mg PO Q6H PRN pain/fever 01/30/22 [History Last Taken Unknown] lidocaine 5 % topical ointment 1 applic topical DAILY PRN dialysis 01/30/22 [History Last Taken Unknown] multivitamin 1 tab PO DAILY 01/30/22 [History Last Taken Unknown] ondansetron 4 mg disintegrating tablet 4 mg PO Q6H PRN Nausea 01/30/22 [History Last Taken Unknown] pantoprazole 20 mg tablet,delayed release 20 mg PO DAILY 01/30/22 [History Last Taken Unknown] Allergy/AdvReac Type Severity Reaction Status Date / Time doxazosin mesylate Allergy Hives Verified 04/01/22 04:52 [From Cardura] fosinopril sodium Allergy Hives Verified 04/01/22 04:52 [From Monopril] lisinopril Allergy Hives Verified 04/01/22 04:52 morphine Allergy Other Verified 04/01/22 04:52 Family History Father Hypertension Cancer Brother CAD (coronary artery disease) Mother Hypertension Sister Hypertension Son Atrial fibrillation Surgical History history fistulogram (~07/27/17) History of angioplasty History of bilateral hip arthroplasty History of left breast biopsy (~06/2018) 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 S/P peripheral artery angioplasty Status post right partial knee replacement Social History Smoking Status: Former smoker Tobacco: How many years used: 20 second hand exposure: No alcohol intake: never substance use type: does not use caffeine: No what type of physical activity do you participate in: none ROS ROS ED Constitutional Constitutional ED: Denies chills, fever(s) or malaise Eyes Eyes: Denies blurry vision or loss of vision ENT ENT ED: Denies rhinorrhea or sore throat Cardiovascular Cardiovascular: Denies chest pain or dizziness Respiratory/Chest Respiratory/Chest: Denies cough or dyspnea Gastrointestinal Gastrointestinal: Denies nausea or vomiting Genitourinary Genitourinary ED: Denies dysuria or hematuria Musculoskeletal Musculoskeletal: Reports other Details: Left forearm pain ; Denies arthralgias or myalgias Integumentary Denies rash or wounds Neurologic Neurologic: Denies focal weakness or headache(s) Psychiatric Psychiatric: Denies anxiety or behavioral changes EXAM Physical Exam Const Vital Signs: 04/01/22 04:42 04/01/22 04:50 04/01/22 06:30 Temperature 98.3 F Temperature Source Oral Pulse Rate 82 95 Respiratory Rate 15 15 Respiratory Effort Non-Labored Blood Pressure 154/90 H Pulse Ox 94 96 Oxygen Delivery Method Room Air 04/01/22 07:24 Temperature Temperature Source Pulse Rate Respiratory Rate 16 Respiratory Effort Blood Pressure Pulse Ox Oxygen Delivery Method Positive well nourished, well developed and no apparent distress General Appearance ED: well developed HEENT Reports normocephalic atraumatic Nose: no nasal discharge External Ear: external ears normal Mouth ED: Yes moist mucous membranes normal Eyes PERRL and EOMs intact bilaterally Neck full ROM and no meningeal signs Chest Wall inspection of chest normal Resp normal respiratory effort and normal air movement Cardio regular rate and regular rhythm GI non-tender and non-distended Palpation: soft Extremity normal to inspection and full ROM Extremity Narrative: Patient has an AV fistula in the left forearm. There is a palpable thrill. There is some surrounding ecchymosis. No associated erythema or warmth. Patient has tenderness to the middle aspect of the fistula. No associated crepitus. Neuro oriented x3 and no focal motor deficits Psych mental status grossly normal and thought process normal Skin no rashes or lesions noted and no wounds MDM MDM MDM Narrative Medical decision making narrative: Patient is evaluated for pain in his fistula that started after dialysis yesterday. Patient has not missed any dialysis. He has no other complaints. As it is 5:30 AM on Sunday morning we discussed him waiting until 9 AM for vascular ultrasound to arrive or ordering the study and having him come back later in the day. Patient would like to come back later in the day. He has no signs of infection on exam. He is hemodynamically stable. He has no other symptoms. Will be discharged home with outpatient AV fistula ultrasound ordered. Patient will follow up with his vascular surgeon as needed. Discharge Plan Triage Chief Complaint: Other, Pain/Inj ED Provider: Randa Zuñiga Dx/Rx/DC Orders Clinical Impression: Pain from arteriovenous fistula Prescriptions: No Action acetaminophen 325 mg capsule 650 mg PO Q6H PRN PRN (Reason: pain/fever) allopurinol 100 mg tablet 100 mg PO QHS loratadine 10 mg tablet 10 mg PO DAILY furosemide 40 mg tablet 40 mg PO BID levothyroxine 50 mcg tablet 50 mcg PO DAILY tamsulosin [Flomax] 0.4 mg capsule 0.4 mg PO QHS buspirone 5 mg tablet 5 mg PO BID finasteride 5 MG tablet 5 mg PO DAILY Label Comments: PROSTATE aspirin 81 MG tablet,chewable 81 mg PO DAILY@0800 Label Comments: BLOOD THINNER/HEART nitroglycerin 0.4 MG tablet 0.4 mg SUBLINGUAL Q5M PRN (Reason: Chest Pain) Label Comments: CHEST PAIN multivitamin [Multi-Daily] Tablet 1 tab PO DAILY acetaminophen 325 mg Tablet 325 mg PO TID citalopram 10 mg Tablet 10 mg PO TID ibuprofen 200 mg Tablet 200 mg PO Q6H PRN (Reason: pain/fever) ondansetron 4 mg Tablet,Disintegrating 4 mg PO Q6H PRN (Reason: Nausea) artificial tear(elioq-orm-vtz) 0.1-0.3-0.2 % Drops 1 drp EACH EYE BID lidocaine 5 % Ointment 1 applic TOPICAL DAILY PRN (Reason: dialysis) pantoprazole 20 mg Tablet,Delayed Release (Dr/Ec) 20 mg PO DAILY clopidogrel 75 MG tablet 75 mg PO DAILY Qty: 90 3RF pravastatin 20 mg tablet 20 mg PO QHS Qty: 90 3RF Other Ambulatory Orders: US Art Duplex Unilat UP Extrem (Routine) Facility: [facility] - Location: [facility] Ordered By: Dr. Randa Zuñiga Primary Care Provider: Care Physician,No Primary Activity Restrictions/Additional Instructions: You should be contacted later in the day with return instructions for scheduling and your ultrasound for your arm. In the meantime you may take Tylenol as needed for discomfort and apply cool compresses to your forearm. Disposition Disposition: Home, Self Care
[2022-04-01 06:30] VITALS: BP 154/90; PULSE 95; RESP 15; O2SAT 96
[2022-04-01 07:24] VITALS: RESP 16
--- NOTE | 2022-04-01 07:27 | ED.RN ---
THIS RN CONTACTED [facility] SPOKE WITH EMIGDIO NURSE AT [facility]. INFORMED NURSE OF PT BEING D/C HOME WITH OUTPATIENT ORDER FOR ARTERIAL DOPPLER STUDY TO BE COMPLETED ON SUNDAY. PT REPORTS HE IS TO HAVE DIALYSIS ON SUNDAY ALSO. EMIGDIO INFORMED TO ASSIST PT IN MAKING APPOINTMENTS FOR DOPPLER WELL DIALYSIS ON SUNDAY. PT REPORTS HE WILL CALL HIS SON TO GET A RIDE HOME.
== END 2022-04-01 09:50 | disposition home or self-care (01) ==
LOC: ED 05:59
PROVIDERS: Emergency Provider Emergency Medicine; Visit Provider Emergency Medicine
DX: T82.848A Pain due to vascular prosthetic devices, implants and grafts, initial encounter (principal); I13.2 Hypertensive heart and chronic kidney disease with heart failure and with stage 5 chronic kidney disease, or end stage renal disease; Z99.2 Dependence on renal dialysis; I50.32 Chronic diastolic (congestive) heart failure; N18.6 End stage renal disease; E78.5 Hyperlipidemia, unspecified; I25.10 Atherosclerotic heart disease of native coronary artery without angina pectoris; Z87.891 Personal history of nicotine dependence; X58.XXXA Exposure to other specified factors, initial encounter
CPT/HCPCS: 99284

== ENCOUNTER → 2022-04-03 | Outpatient (CLI) | payer MEDICARE, BC, MEDICAID, SELFPAY ==
--- NOTE | 2022-04-03 08:22 | AVDS_ITS ---
Version 2 Reason For Study: Fistula pain after dialysis LEFT Inflow artery, 266.5/177.9 cm/sec. Inflow artery, 1138 ml/min. Prox anastomosis, 431.8/285.1 cm/sec. Prox anastomosis, 2772 ml/min. Prox graft, 128.9/86 cm/sec. Prox graft, 7804 ml/min. Mid graft, 69.9/48 cm/sec. Mid graft, 1515 ml/min. Distal graft, 91.4/68.8 cm/sec. Distal graft, 1884 ml/min. Outflow vein, 127.2/79.7 cm/sec. Outflow vein, 1508 ml/min. VL/AV Fistula/Dialysis Graft Scan Interpretation Summary Patent left upper extremity radial cephalic arteriovenous hemodialysis fistula with very high flow in the proximal fistula at 7804 mm/min. The flow rate of the inflow radial artery is 1138 mm/min Largest diameter is in the mid fistula at 1.58 x 1.76 cm in diameter The fistula outflow diameter is 0.79 cm No extravasation of flow is seen Ordering Physician: Jose M Gasca Performed By: Celena Benitez RVT
== END | disposition home or self-care (01) ==
LOC: CVS 08:17
PROVIDERS: Referring Provider Emergency Medicine; Visit Provider Emergency Medicine
DX: T82.848A Pain due to vascular prosthetic devices, implants and grafts, initial encounter (principal)
CPT/HCPCS: 93990

== ENCOUNTER 2022-05-03 10:45 | Emergency (ER) | payer MEDICARE, MEDICAID, BC, SELFPAY ==
[2022-05-03 10:46] VITALS: BP 132/78; PULSE 68; RESP 18; TEMP 36.3; O2SAT 97; BMI 39.2
--- NOTE | 2022-05-03 11:04 | EKG12_ITS ---
Test Reason : CHEST PAIN Blood Pressure : / mmHG Vent. Rate : 098 BPM Atrial Rate : 000 BPM P-R Int : 000 ms QRS Dur : 118 ms QT Int : 448 ms P-R-T Axes : 000 -38 177 degrees QTc Int : 571 ms Sinus rhythm Left axis deviation Minimal voltage criteria for LVH, may be normal variant ( [place] product ) Inferior infarct , age undetermined ST & T wave abnormality, consider anterolateral ischemia Abnormal ECG Confirmed by NIMO HOWE, EDITH ([id number]), material expeditor AMENA OLIVER ([id number]) on 05/05/2022 6:29:10 AM Referred By: LENA Confirmed By:ARVIN USERO MD
--- NOTE | 2022-05-03 11:20 | ED.VIS.CHEST ---
HPI History of Present Illness Chief Complaint: Chest Pain Detail of Chief Complaint: Midsternal lasted about 45 minutes to an hour now resolved. Informant: patient Onset/Context/Timing Onset: Today Activity at onset: gradual Timing: Intermittent Quality: Positive for Dull and Pain Location: Substernal Current Severity: Gone Maximum Severity: Mild Worsened By: Nothing Relieved By: Nothing Associated Symptoms: Negative for Nausea, Vomiting, Diaphoresis, Dyspnea, Cough, Fever, Lightheadedness, Acid Reflux or Palpitations Narrative Narrative: 81-year-old male history of end-stage renal disease gets dialysis Sunday. History of CAD with stents and CHF. No prior DVT or PE. States today started dialysis around 7 AM 3 hours into his dialysis around 10 AM he started having chest pain that was midsternal. It was a dull ache. It lasted 45 minutes to 1 hour then resolved and is now completely gone. He denies any radiation of the pain to his neck, jaw, back or arm. Currently he is pain-free. He denies any shortness of breath. No associated nausea. He has had no recent exertional chest pain or exertional shortness of breath. No diaphoresis. Prior Similar Symptoms: Yes Recent Illness/Hospitalization: No CVD Risk Factors: Negative for Diabetes PE Risk Factors: Negative for Recent Travel/Surgery, Recent Immobilization, Prior DVT or PE, Cancer or OCP + Smoking + >/=35 TAD Risk Factors: Negative for Marfan's Syndrome [facility] Medical History Abnormal electrocardiogram Abnormal nuclear stress test Acute renal insufficiency Angina pectoris Arthritis Atherosclerosis of knik coronary artery of knik heart without angina pectoris Benign essential hypertension Benign prostatic hypertrophy without lower urinary tract symptoms BMI 40.0-44.9, adult Breast mass, left Chest pain Chest pain on exertion Chronic kidney disease Chronic renal failure, stage 3 (moderate) Coronary artery disease Diastolic heart failure Essential hypertension Fatigue Gastroesophageal reflux disease Hyperlipidemia Hypertension Hypokalemia Long-term use of high-risk medication Melanotic stools Normochromic normocytic anemia ALY (obstructive sleep apnea) Pulmonary hypertension Shortness of breath Sinus bradycardia Skin lesion Home Medications aspirin 81 mg chewable tablet 81 mg PO DAILY@0800 04/01/14 [History Last Taken 02/06/22] finasteride 5 mg tablet 5 mg PO DAILY 04/01/14 [History Last Taken 10/02/18] nitroglycerin 0.4 mg sublingual tablet 0.4 mg sublingual Q5M PRN Chest Pain 02/01/15 [History Last Taken 02/27/15] clopidogrel 75 mg tablet 75 mg PO DAILY #90 tabs 06/12/17 [Rx Last Taken 02/06/22] pravastatin 20 mg tablet 20 mg PO QHS #90 tabs 08/08/17 [Rx Last Taken 12/04/17] acetaminophen 325 mg capsule 650 mg PO Q6H PRN PRN pain/fever 02/20/18 [History Last Taken Unknown] furosemide 40 mg tablet 40 mg PO BID 05/02/18 [History Last Taken 10/02/18] levothyroxine 50 mcg tablet 50 mcg PO DAILY 05/02/18 [History Last Taken 02/23/20] allopurinol 100 mg tablet 100 mg PO QHS 10/03/18 [History Last Taken Unknown] loratadine 10 mg tablet 10 mg PO DAILY 10/03/18 [History Last Taken Unknown] tamsulosin 0.4 mg capsule (Flomax) 0.4 mg PO QHS 04/02/19 [History Last Taken Unknown] buspirone 5 mg tablet 5 mg PO BID 12/25/19 [History Last Taken Unknown] acetaminophen 325 mg tablet 325 mg PO TID 01/30/22 [History Last Taken Unknown] artificial tears([id number]) 0.1 %-0.3 %-0.2 % eye drops 1 drp EACH EYE BID 01/30/22 [History Last Taken Unknown] citalopram 10 mg tablet 10 mg PO TID 01/30/22 [History Last Taken Unknown] ibuprofen 200 mg tablet 200 mg PO Q6H PRN pain/fever 01/30/22 [History Last Taken Unknown] lidocaine 5 % topical ointment 1 applic topical DAILY PRN dialysis 01/30/22 [History Last Taken Unknown] multivitamin 1 tab PO DAILY 01/30/22 [History Last Taken Unknown] ondansetron 4 mg disintegrating tablet 4 mg PO Q6H PRN Nausea 01/30/22 [History Last Taken Unknown] pantoprazole 20 mg tablet,delayed release 20 mg PO DAILY 01/30/22 [History Last Taken Unknown] Allergy/AdvReac Type Severity Reaction Status Date / Time doxazosin mesylate Allergy Hives Verified 05/03/22 10:48 [From Cardura] fosinopril sodium Allergy Hives Verified 05/03/22 10:48 [From Monopril] lisinopril Allergy Hives Verified 05/03/22 10:48 morphine Allergy Other Verified 05/03/22 10:48 Family History Father Hypertension Cancer Brother CAD (coronary artery disease) Mother Hypertension Sister Hypertension Son Atrial fibrillation Surgical History history fistulogram (~07/27/17) History of angioplasty History of bilateral hip arthroplasty History of left breast biopsy (~06/2018) 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 S/P peripheral artery angioplasty (~03/2022) Status post right partial knee replacement Social History Smoking Status: Former smoker Tobacco: How many years used: 20 second hand exposure: No alcohol intake: never substance use type: does not use caffeine: No what type of physical activity do you participate in: none ROS ROS ED ROS Narrative Chest pain today only. Review of Systems ROS Unobtainable: Denies due to encephalopathy Constitutional Constitutional ED: Denies chills or fever(s) Eyes Eyes: Reports none ENT ENT ED: Denies ear pain Cardiovascular Cardiovascular: Reports as per HPI and chest pain; Denies palpitations or racing heartbeat Respiratory/Chest Respiratory/Chest: Denies cough or dyspnea Gastrointestinal Gastrointestinal: Denies abdominal pain, constipation, diarrhea, melena, nausea or vomiting Genitourinary Genitourinary ED: Denies dysuria Musculoskeletal Musculoskeletal: Denies arthralgias Integumentary Denies abscess Neurologic Neurologic: Denies headache(s) Psychiatric Psychiatric: Denies anxiety Endocrine Endocrinology: Denies cold intolerance Hematologic/Lymphatic Hematologic/Lymphatic: Denies easy bleeding or easy bruising Allergic/Immunologic Allergic/Immunologic ED: Denies mouth swelling or tongue swelling EXAM Physical Exam Narrative Exam Narrative: 81-year-old male no acute distress sitting upright in bed. Pain-free symptom-free. Vital signs stable afebrile. Pulse ox 97% on room air no signs hypoxia. H EENT exam unremarkable. Neck nontender no JVD. Lungs clear to auscultation bilaterally. Heart regular rhythm rate about 70 no murmur. Abdomen soft nontender. Normal bowel sounds no peritoneal signs. Chest wall nontender. Moving all 4 extremities. Trace chronic edema lower extremities. 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 Normal dorsi plantarflexion. Neurologically is awake and alert with no focal motor deficits. Const Vital Signs: 05/03/22 10:46 05/03/22 11:24 05/03/22 11:45 Temperature 97.3 F L Temperature Source Temporal Pulse Rate 68 72 Respiratory Rate 18 12 Blood Pressure 132/78 H Blood Pressure Mean 96 Pulse Ox 97 96 95 Oxygen Delivery Method Room Air Room Air Room Air 05/03/22 13:00 05/03/22 14:00 Temperature Temperature Source Pulse Rate 67 93 Respiratory Rate 17 18 Blood Pressure 127/78 H 148/86 H Blood Pressure Mean 94 106 Pulse Ox 99 99 Oxygen Delivery Method Room Air Room Air Positive well nourished, well developed and obese; Negative for cachectic, contractures or unkempt General Appearance ED: well developed and NAD; Negative for unkempt, cachectic, contractures or pallor Nutritional Appearance: obese; Negative for cachectic HEENT Reports moist mucous membranes normocephalic and atraumatic; Negative for trauma or tenderness Eyes PERRL and EOMs intact bilaterally General Eye ED: Negative for pale conjunctiva, scleral icterus or other Neck no lymphadenopathy, supple and no JVD General: Negative for tenderness Chest Wall inspection of chest normal and palpation of chest normal Resp normal respiratory effort and clear to auscultation bilaterally Effort and Inspection: Negative for respiratory distress Auscultation: Negative for rales, rhonchi or wheezes Cardio regular rate, regular rhythm, S1 normal heart sound, S2 normal heart sound and no murmurs Rate: Negative for bradycardia or tachycardic Rhythm: Negative for abnormal rhythm Peripheral Pulses: pulses 2+ throughout GI Auscultation: Negative for hyperactive bowel sounds Back/Spine no CVA tenderness and no thoracic nor lumbar tenderness General Back: Negative for CVA tenderness Cervical Spine: Negative for cervical spine tenderness Extremity normal to inspection General Extremety ED: Yes edema; Negative for pulses abnormal General Extremity: edema; Negative for pulses abnormal Neuro oriented x3 and CN's II-XII intact bilaterally Sensorium / Orientation: awake, alert, oriented to person, oriented to place, oriented to time and confused; Negative for lethargic or stuporous Motor Exam: strength 5/5 throughout Psych mental status grossly normal Appearance: Negative for unkempt Attitude: No agitated Mood & Affect: Negative for depressed, anxious or tearful Skin no rashes or lesions noted and no wounds General Skin Exam: Negative for jaundice or pallor Rashes: No rashes noted Trauma: Negative for abrasion or laceration MDM MDM MDM Narrative Medical decision making narrative: 81-year-old male known coronary disease with chest pain for 45 minutes during dialysis. Now pain-free. Exam benign. Will undergo a cardiac work-up. This is not reproducible. Clinically I do not think it was reflux but obviously the differential. He has no reason to have a PE. And has never had 1. He will be worked up for possible cardiac chest pain. Repeat Spencer at 2:58 PM. Patient looks and feels well. He had I went over all his test results. He feels comfortable and discharged home. He will follow-up with his saw edge fuser circular Dr. Norris Pastrana. Lab Data Attestation: I reviewed the patient's lab results. Lab results narrative: CBC unremarkable white count 6.9. H&H 13 and 39. Electrolytes show sodium 134. Gap of 9. BUN of 42 creatinine 4.8 he does have a history of end-stage renal disease on dialysis. Glucose 143. Troponin was 57 and 2-hour troponin was basically unchanged at 58. Chest x-ray chronic changes and unremarkable. Labs: Laboratory Results - last 24 hr 05/03/22 05/03/22 05/03/22 11:20 11:20 14:05 WBC 6.9 RBC 4.16 L Hgb 13.0 Hct 39.2 L MCV 94.2 H MCH 31.3 MCHC 33.2 RDW Std Deviation 44.8 H RDW Coeff of Colleen 12.9 Plt Count TNP MPV 11.3 Immature Gran % (Auto) 0.300 Neut % (Auto) 64.0 Lymph % (Auto) 21.4 Glascock % (Auto) 9.8 Eos % (Auto) 3.8 Baso % (Auto) 0.7 Absolute Neuts (auto) 4.4 Absolute Lymphs (auto) 1.47 Nucleated RBC % 0 Platelet Estimate ADEQUATE Sodium 134 L Potassium 3.8 Chloride 97 L Carbon Dioxide 28.0 Anion Gap 9 BUN 42 H Creatinine 4.80 H Estim Creat Clear Calc 10.90 Est GFR (MDRD) Af Amer 15 L Est GFR (MDRD) Non-Af 12 L BUN/Creatinine Ratio 8.8 L Glucose 143 H Calcium 9.3 Troponin I High Sens 57 58 Radiography Chest X-Ray - ED: 1 View, Read by ED Physician, Read by Radiologist, Heart, Lungs, Mediastinum, Bony Structures, No Acute Disease and Chronic Changes Diagnostic Testing: Clinical Impression(s) from Imaging Studies Chest X-Ray 05/03/22 12:25 IMPRESSION: Stable examination. Electronically Signed: Paul Escalante MD at 12:48 EST , Chest x-ray, portable, single view shows chronic changes no acute process. No infiltrate. Interpreted both by myself and the radiologist. Were in agreement. Rhythm Strip Rhythm Strip: Junctional Rate: 98 Ectopy: None EKG Initial EKG: Attestation: I personally reviewed and interpreted this EKG as follows: Interpretation: No Acute Injury Pattern Comments: Accelerated junctional rhythm at 98.. Old inferior infarct. No acute abnormality. Significant artifact from his tremors. Prior: Unchanged Discharge Plan Triage Chief Complaint: Chest Pain ED Provider: John Brooke Dx/Rx/DC Orders Clinical Impression: Chest pain, End stage chronic kidney disease, History of CAD (coronary artery disease) Instructions: ED Chest Pain, Uncertain Cause Prescriptions: No Action acetaminophen 325 mg capsule 650 mg PO Q6H PRN PRN (Reason: pain/fever) allopurinol 100 mg tablet 100 mg PO QHS loratadine 10 mg tablet 10 mg PO DAILY furosemide 40 mg tablet 40 mg PO BID levothyroxine 50 mcg tablet 50 mcg PO DAILY tamsulosin [Flomax] 0.4 mg capsule 0.4 mg PO QHS buspirone 5 mg tablet 5 mg PO BID finasteride 5 MG tablet 5 mg PO DAILY Label Comments: PROSTATE aspirin 81 MG tablet,chewable 81 mg PO DAILY@0800 Label Comments: BLOOD THINNER/HEART nitroglycerin 0.4 MG tablet 0.4 mg SUBLINGUAL Q5M PRN (Reason: Chest Pain) Label Comments: CHEST PAIN multivitamin [Multi-Daily] Tablet 1 tab PO DAILY acetaminophen 325 mg Tablet 325 mg PO TID citalopram 10 mg Tablet 10 mg PO TID ibuprofen 200 mg Tablet 200 mg PO Q6H PRN (Reason: pain/fever) ondansetron 4 mg Tablet,Disintegrating 4 mg PO Q6H PRN (Reason: Nausea) artificial tear(seltr-ucq-trs) 0.1-0.3-0.2 % Drops 1 drp EACH EYE BID lidocaine 5 % Ointment 1 applic TOPICAL DAILY PRN (Reason: dialysis) pantoprazole 20 mg Tablet,Delayed Release (Dr/Ec) 20 mg PO DAILY clopidogrel 75 MG tablet 75 mg PO DAILY Qty: 90 3RF pravastatin 20 mg tablet 20 mg PO QHS Qty: 90 3RF Primary Care Provider: Gemrania Penn [employer] Referrals: Norris Pastrana MD [Med Staff - Active Staff] - As soon as possible Care Physician,No Primary [Non-Staff] - Activity Restrictions/Additional Instructions: Follow-up with your saw edge fuser circular Dr. Pastrana as soon as possible. Return if you are feeling worse. Disposition Disposition: Home, Self Care
[2022-05-03 11:24] VITALS: O2SAT 96
[2022-05-03 11:34] LABS: Absolute Lymphocyte Count 1.47 X10^3/uL (0.83-4.51); Absolute Neutrophil Count 4.4 X10^3/uL (2.0-7.7); Basophil# 0.05 X10^3/uL; Basophil% 0.7 % (0-1); Eosinophil# 0.26 X10^3/uL; Eosinophils% 3.8 % (0-5); Hematocrit 39.2 % (40-54); Lymphocyte # 1.47 X10^3/ul (0.83-4.51); Lymphocyte % 21.4 % (19-41); Mean Corp Hgb Conc 33.2 g/dL (32-36); Mean Corpuscular Hgb 31.3 pg (27.0-32.0); Mean Corpuscular Volume 94.2 fL (80-94); Mean Platelet Vol. 11.3 fl (6.2-12.0); Monocyte# 0.67 X10^3/uL; Monocyte% 9.8 % (0-10); NRBC Flagged by Analyzer 0 % (0-5); Neutrophil # 4.39 X10^3/uL (2.7-7.7); POSITIVE COUNT YES; RBC Distribution Width CV 12.9 % (11.6-14.6); RBC Distribution Width SD 44.8 fl (35.1-43.9); Red Blood Count 4.16 M/mm3 (4.6-6.2); White Blood Count 6.9 K/mm3 (4.4-11.0)
[2022-05-03 11:45] VITALS: PULSE 72; RESP 12; O2SAT 95
[2022-05-03 11:56] LABS: Anion Gap 9 (5-15); BUN 42 mg/dL (7-18); BUN/Creat Ratio 8.8 RATIO (10-20); Calcium,Total 9.3 mg/dL (8.5-10.1); Chloride 97 mmol/L (98-107); EST Glomerular Filtration Rate 12 mL/min (>60); Est Glom Filt Rate - Afr Amer 15 mL/min (>60); Glucose 143 mg/dL (74-106); Potassium 3.8 mmol/L (3.5-5.1); Sodium Level 134 mmol/L (136-145); Troponin-I HS (w/2H Reflex) 57 pg/mL (3.0-78.0)
[2022-05-03 12:02] LABS: Differential Indicated SCAN CRITERIA MET
[2022-05-03 12:03] LABS: Platelet Estimate ADEQUATE (ADEQ)
--- NOTE | 2022-05-03 12:25 | RAD_ITS ---
STUDY: X-RAY CHEST REASON FOR EXAM: Male, 81 years old. Chest pain TECHNIQUE: Single AP portable view of the chest. COMPARISON: Comparison is made with prior study 01/30/2022. FINDINGS: EKG electrodes are seen. Stable calcified pleural plaques in the upper lobes. Scattered calcified granulomas. Stable mild increased markings at the left lung base suggestive of a scarring. Normal size heart. Normal mediastinum and iftikhar. Normal visualized pulmonary arteries. Normal visualized aortic arch and descending thoracic aorta. Normal visualized thoracic spine. Normal visualized ribs, clavicles, and shoulders. There is no demonstrated abnormality of the visualized soft tissue structures of the upper abdomen. RAD/Chest 1 View (Portable) IMPRESSION: Stable examination. Electronically Signed: Paul Escalante MD at 12:48 EST ,
[2022-05-03 13:00] VITALS: BP 127/78; PULSE 67; RESP 17; O2SAT 99
[2022-05-03 13:29] LABS: Reflex Troponin-HS? (from REC) Y
[2022-05-03 14:00] VITALS: BP 148/86; PULSE 93; RESP 18; O2SAT 99
--- NOTE | 2022-05-03 14:05 | CM.ED ---
Social Work Consult: No PCP Referral source: Self referral due to above This case management social worker met with patient in room. Introduced self and case management social worker role. Patient agreeable to meet with this case management social worker. This case management social worker broached conversation of primary care physician for patient. Patient reports to been seen by a nurse practitioner and is unsure of their name or practice. Patient lives at [facility] and is agreeable to this case management social worker calling [facility] to inquire about who patient provider is. Telephone call to [facility], patient is seen my Germania Penn NP. This case management social worker updated patient chart accordingly. No further services requested or indicated. Vanda SONI, ROB
[2022-05-03 14:34] LABS: Troponin-I HS 58 pg/mL (3.0-78.0)
[2022-05-03 15:09] VITALS: BP 140/65; PULSE 67
== END 2022-05-03 15:09 | disposition home or self-care (01) ==
PROVIDERS: Emergency Provider Emergency Medicine; PCP Nurse Practitioner Adult Health; Visit Provider Emergency Medicine
DX: R07.9 Chest pain, unspecified (principal); I13.2 Hypertensive heart and chronic kidney disease with heart failure and with stage 5 chronic kidney disease, or end stage renal disease; Z99.2 Dependence on renal dialysis; I50.30 Unspecified diastolic (congestive) heart failure; N18.6 End stage renal disease; I25.10 Atherosclerotic heart disease of native coronary artery without angina pectoris; E78.5 Hyperlipidemia, unspecified; Z87.891 Personal history of nicotine dependence
CPT/HCPCS: 71045; 80048; 84484; 85025; 93005; 99285; A4216

== ENCOUNTER → 2022-06-15 | Outpatient (CLI) | payer MEDICARE, BC, MEDICAID, SELFPAY ==
--- NOTE | 2022-06-15 18:41 | STRESSREP ---
Stress Test Report Date: 06-15-2022 Procedure: Pharmacologic stress nuclear imaging study Indications: Chest pain; CAD; PCI Consent: Per the patient Procedure: The patient underwent pharmacologic (Regadenoson 0.4mg ) evaluation with a peak heart rate of 104 beats per minute (75%predicted maximal heart rate) and a resting blood pressure of 130/78 mmHg and a peak blood pressure of 140/74 mmHg. The baseline ECG demonstrated normal sinus rhythm; first-degree AV block; incomplete left bundle branch block pattern; nonspecific ST/T wave abnormality. The peak pharmacologic ECG demonstrated no obvious ECG changes. There was a rare PVC during recovery. There was no complaint of chest discomfort during pharmacologic infusion or recovery. The examination was discontinued secondary to completion of protocol. Impression: 1. Pharmacologic (Regadenoson) evaluation 2. Peak pharmacologic ECG with no obvious ECG changes. 3. There was a rare PVC during recovery. 4. Nuclear images pending Myocardial perfusion imaging study: Technique: The patient was injected with 14.4 millicuries of technetium 99m Cardiolite and subsequently rest SPECT Cardiolite nuclear imaging was obtained in the horizontal long, vertical long, and short axis views. The patient underwent pharmacologic (Regadenoson) evaluation with a peak heart rate of 104 beats per minute (75% percent predicted maximal heart rate) and a resting blood pressure of 130/78 mmHg and a peak blood pressure of 140/74 mmHg. The patient was injected with 45.0 millicuries of technetium 99m Cardiolite and subsequently stress SPECT Cardiolite nuclear imaging was obtained in the horizontal long, vertical long, and short axis views. A gated Cardiolite study at peak stress was obtained. Interpretation: Rest and stress SPECT Cardiolite nuclear imaging status post realignment, normalization, and attenuation correction demonstrate at rest and stress the appearance of diminished myocardial perfusion/tracer uptake in the inferior apical segments and status post-rest the appearance of an area of diminished myocardial perfusion/tracer uptake in the distal inferior segments. There is diminished end-systolic thickening and brightening. The gated Cardiolite study demonstrates myocardial thickening and inward wall motion. The reported LVEF is 39%. Impression: 1. Rest and stress SPECT her nuclear imaging demonstrate myocardial perfusion changes appearing compatible with an area of previous myocardial injury/infarction involving the inferior apical segments with post-rest myocardial perfusion changes appearing compatible with mild william-infarct related myocardial ischemia involving the distal inferior segments. 2. The gated Cardiolite study reports an LVEF of 39%. This note was generated with Apps[employer]Proation software. It may contain incorrect words, spelling, and punctuation that were not noted in checking the note before signing.
== END | disposition home or self-care (01) ==
PROVIDERS: PCP Nurse Practitioner Adult Health; Referring Provider Internal Medicine Cardiovascular Disease; Visit Provider Internal Medicine Cardiovascular Disease
DX: I25.10 Atherosclerotic heart disease of native coronary artery without angina pectoris (principal); I50.32 Chronic diastolic (congestive) heart failure; I10 Essential (primary) hypertension; E78.5 Hyperlipidemia, unspecified
CPT/HCPCS: 78452; 93017; A9500; A4216; J2785

== ENCOUNTER → 2022-07-04 | Outpatient (CLI) | payer MEDICARE, BC, MEDICAID, SELFPAY ==
--- NOTE | 2022-07-04 08:51 | BI_ITS ---
MAMMOGRAPHY - BILATERAL DIAGNOSTIC REASON FOR EXAM: Male, 81 years old. Left breast lump with itchiness. MAMMOGRAPHY - BILATERAL DIAGNOSTIC REASON FOR EXAM: Male, 81 years old. Left breast lump with itchiness. PERTINENT HISTORY: Prior left excisional breast biopsy. TECHNIQUE: Digital bilateral breast juarez (3D mammographic acquisition) in the CC and MLO projections. 2-D mediolateral oblique (MLO) and craniocaudad (CC) views of both breasts were obtained. CAD: Full Field Digital Mammography with Computer Added Detection was performed. COMPARISON: Comparison is made with prior study dated July 03, 2018. FINDINGS: PERTINENT HISTORY: Prior left excisional breast biopsy. TECHNIQUE: Digital bilateral breast juarez (3D mammographic acquisition) in the CC and MLO projections. 2-D mediolateral oblique (MLO) and craniocaudad (CC) views of both breasts were obtained. CAD: Full Field Digital Mammography with Computer Added Detection was performed. COMPARISON: Comparison is made with prior study dated July 03, 2018. FINDINGS: Breast Composition: There are scattered areas of fibroglandular density. There are no dominant masses or suspicious calcifications. A tissue clip marker is seen in the retroareolar region of the left breast. No other significant abnormalities are identified. BI/DIAG MAMM W/CAD, BILAT IMPRESSION: No suspicious abnormality is seen. Correlation with ultrasound of the retroareolar region of the left breast is recommended. ASSESSMENT CATEGORY: BIRADS Category 0: Incomplete. Need additional imaging evaluation. A letter regarding these results will be sent to the patient by the facility within 30 days. Approximately 10% of breast cancers are not detected by mammography. A normal mammogram should not delay biopsy of a clinically suspicious abnormality. Electronically Signed: Paul Escalante MD at 10:57 EST ,
--- NOTE | 2022-07-04 08:51 | US_ITS ---
STUDY: ULTRASOUND BREAST - LEFT REASON FOR EXAM: Male, 81 years old. Palpable lump left breast. TECHNIQUE: Axial and longitudinal images of the LEFT breast were performed with a high resolution ultrasound transducer. # OF IMAGES: 34 COMPARISON: Comparison is made with prior mammogram done earlier today. FINDINGS: LEFT Breast: There is evidence of gynecomastia in the retroareolar region with a tissue clip marker from prior biopsy seen. There is dilated retroareolar ducts. US/Breast Limited Unilateral IMPRESSION: No suspicious abnormality is seen. ASSESSMENT CATEGORY: BIRADS Category 2: Benign. A letter regarding these results will be sent to the patient by the facility within 30 days. Electronically Signed: Paul Escalante MD at 11:03 EST ,
== END | disposition home or self-care (01) ==
LOC: OPBI 08:36
PROVIDERS: PCP Nurse Practitioner Adult Health; Visit Provider Nurse Practitioner Adult Health
DX: N63.21 Unspecified lump in the left breast, upper outer quadrant (principal)
CPT/HCPCS: 76642; 77062; 77066; G0279

== ENCOUNTER 2022-07-09 16:15 | Emergency (ER) | payer MEDICARE, BC, MEDICAID, SELFPAY ==
[2022-07-09 16:16] VITALS: BP 153/82; PULSE 72; RESP 18; TEMP 36.3; O2SAT 97; BMI 39.1
[2022-07-09 16:54] LABS: Absolute Lymphocyte Count 1.07 X10^3/uL (0.83-4.51); Absolute Neutrophil Count 6.1 X10^3/uL (2.0-7.7); Basophil# 0.02 X10^3/uL; Basophil% 0.2 % (0-1); Eosinophil# 0.18 X10^3/uL; Eosinophils% 2.2 % (0-5); Hematocrit 38.2 % (40-54); Hemoglobin 12.3 g/dL (13.0-16.5); Lymphocyte # 1.07 X10^3/ul (0.83-4.51); Lymphocyte % 13.2 % (19-41); Mean Corp Hgb Conc 32.2 g/dL (32-36); Mean Corpuscular Hgb 30.7 pg (27.0-32.0); Mean Corpuscular Volume 95.3 fL (80-94); Mean Platelet Vol. 10.9 fl (6.2-12.0); Monocyte# 0.76 X10^3/uL; Monocyte% 9.4 % (0-10); NRBC Flagged by Analyzer 0 % (0-5); Neutrophil # 6.07 X10^3/uL (2.7-7.7); Neutrophil % 74.8 % (47-70); Platelet Count 192 K/mm3 (150-450); RBC Distribution Width CV 13.1 % (11.6-14.6); Red Blood Count 4.01 M/mm3 (4.6-6.2); White Blood Count 8.1 K/mm3 (4.4-11.0)
[2022-07-09 17:12] LABS: Anion Gap 13 (5-15); BUN 52 mg/dL (7-18); BUN/Creat Ratio 7.5 RATIO (10-20); Calcium,Total 8.9 mg/dL (8.5-10.1); Chloride 99 mmol/L (98-107); Creatinine, Serum 6.95 mg/dL (0.70-1.30); EST Glomerular Filtration Rate 8 mL/min (>60); Est Glom Filt Rate - Afr Amer 10 mL/min (>60); Estimated Creatinine Clearance 7.27 ml/min; Glucose 158 mg/dL (74-106); Potassium 2.8 mmol/L (3.5-5.1); Sodium Level 139 mmol/L (136-145)
--- NOTE | 2022-07-09 17:13 | EDS_ITS ---
HPI HPI - GI History of Present Illness Chief Complaint: Abd Pain Detail of Chief Complaint: Abdominal discomfort with Rising Fawn squirts . Informant: patient Abdominal Pain/Flank Pain Onset: Days (Episode started on Sunday) Context: Sudden Onset Timing: Intermittent and Waxes and wanes Quality: Aching Location: Epigastric Current Severity: Mild Maximum Severity: Moderate Worsened by: - (Diarrhea) Relieved by: Nothing Nausea/Vomiting/Emesis GI Symptom: Positive for Nausea; Negative for Vomiting Diarrhea/Melena/Hematochezia GI Symptom: Positive for Diarrhea; Negative for Melena or Hematochezia Onset: Days Stool Quality: Positive for Loose and Watery Associated Symptoms Associated Symptoms: Negative for Dysuria, Frequency, Hematuria or Urgency Narrative Narrative: Patient is an 81-year-old male with history of stage III chronic renal disease, coronary disease, hypertension, pulmonary hypertension, diastolic heart failure, obstructive sleep apnea who presents with vague upper abdominal pain with watery loose diarrhea. He has not been on antibiotic in the past month. He has no ill contacts to his knowledge. He denies blood or mucus in his stool. He has no history of inflammatory bowel disorder. He denies prior history of pseudomembranous enterocolitis. He does not recall eating anything that may have tasted unusual to him. Patient is very hard of hearing. Difficult to obtain history because of his hard of hearing and seemed slightly agitated. He denies fever, chills night sweats. Denies weight gain or weight loss. He denies headache, visual, ocular or auditory symptoms. Patient denies cardiac or respiratory symptoms. Patient is uncertain whether his had decreased urine output. Prior similar symptoms: No Recent Illness/Hospitalization: No [facility] Medical History Abnormal electrocardiogram Abnormal nuclear stress test Acute renal insufficiency Angina pectoris Arthritis Atherosclerosis of [place] coronary artery of [place] heart without angina pectoris Benign essential hypertension Benign prostatic hypertrophy without lower urinary tract symptoms BMI 40.0-44.9, adult Breast mass, left Chest pain Chest pain on exertion Chronic kidney disease Chronic renal failure, stage 3 (moderate) Coronary artery disease Diastolic heart failure Essential hypertension Fatigue Gastroesophageal reflux disease Hyperlipidemia Hypertension Hypokalemia Long-term use of high-risk medication Melanotic stools Normochromic normocytic anemia ALY (obstructive sleep apnea) Pulmonary hypertension Shortness of breath Sinus bradycardia Skin lesion Home Medications aspirin 81 mg chewable tablet 81 mg PO DAILY@0800 04/01/14 [History Last Taken 02/06/22] finasteride 5 mg tablet 5 mg PO DAILY 04/01/14 [History Last Taken 10/02/18] nitroglycerin 0.4 mg sublingual tablet 0.4 mg sublingual Q5M PRN Chest Pain 02/01/15 [History Last Taken 02/27/15] clopidogrel 75 mg tablet 75 mg PO DAILY #90 tabs 06/12/17 [Rx Last Taken 02/06/22] pravastatin 20 mg tablet 20 mg PO QHS #90 tabs 08/08/17 [Rx Last Taken 12/04/17] acetaminophen 325 mg capsule 650 mg PO Q6H PRN PRN pain/fever 02/20/18 [History Last Taken Unknown] furosemide 40 mg tablet 40 mg PO BID 05/02/18 [History Last Taken 10/02/18] levothyroxine 50 mcg tablet 50 mcg PO DAILY 05/02/18 [History Last Taken 02/23/20] loratadine 10 mg tablet 10 mg PO DAILY 10/03/18 [History Last Taken Unknown] tamsulosin 0.4 mg capsule (Flomax) 0.4 mg PO QHS 04/02/19 [History Last Taken Unknown] buspirone 5 mg tablet 5 mg PO BID 12/25/19 [History Last Taken Unknown] acetaminophen 325 mg tablet 325 mg PO TID 01/30/22 [History Last Taken Unknown] artificial tears([id number]) 0.1 %-0.3 %-0.2 % eye drops 1 drp EACH EYE BID 01/30/22 [History Last Taken Unknown] multivitamin 1 tab PO DAILY 01/30/22 [History Last Taken Unknown] ondansetron 4 mg disintegrating tablet 4 mg PO Q6H PRN Nausea 01/30/22 [History Last Taken Unknown] Lactobacillus acidophilus (Acidophilus capsule) 10 mg PO DAILY 05/05/22 [History Last Taken Unknown] fluticasone propionate 50 mcg/actuation nasal spray,suspension (Allergy Relief (fluticasone)) 1 spray intranasal DAILY 05/05/22 [History Last Taken Unknown] guaifenesin 600 mg tablet, extended release 12 hr (Mucinex) 600 mg PO BID 05/05/22 [History Last Taken Unknown] melatonin 5 mg tablet 5 mg PO HS PRN 05/05/22 [History Last Taken Unknown] montelukast 10 mg tablet 10 mg PO QHS 05/05/22 [History Last Taken Unknown] omega 9-nhc-gwp-fish oil 60 mg-90 mg-500 mg capsule (Fish Oil) 1 cap PO BID 05/05/22 [History Last Taken Unknown] pantoprazole 40 mg tablet,delayed release 40 mg PO DAILY 05/05/22 [History Last Taken Unknown] isosorbide mononitrate 30 mg tablet,extended release 24 hr 30 mg PO DAILY #30 tabs 06/19/22 [Rx Last Taken Unknown] Allergy/AdvReac Type Severity Reaction Status Date / Time doxazosin mesylate Allergy Hives Verified 07/09/22 16:19 [From Cardura] fosinopril sodium Allergy Hives Verified 07/09/22 16:19 [From Monopril] lisinopril Allergy Hives Verified 07/09/22 16:19 morphine Allergy Other Verified 07/09/22 16:19 Family History Father Hypertension Cancer Brother CAD (coronary artery disease) Mother Hypertension Sister Hypertension Son Atrial fibrillation Surgical History history fistulogram (~07/27/17) History of angioplasty History of bilateral hip arthroplasty History of left breast biopsy (~06/2018) 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 S/P peripheral artery angioplasty (~03/2022) Status post right partial knee replacement Social History Smoking Status: Former smoker Tobacco: How many years used: 20 second hand exposure: No alcohol intake: never substance use type: does not use caffeine: No what type of physical activity do you participate in: none ROS ROS ED Constitutional Constitutional ED: Denies chills, fever(s), subjective, sweats or weight loss ENT ENT ED: Reports other Details: Patient endorses thirst and dry mouth. ; Denies ear pain, rhinorrhea or sore throat Cardiovascular Cardiovascular: Denies chest pain, palpitations or racing heartbeat Respiratory/Chest Respiratory/Chest: Denies cough, dyspnea or dyspnea on exertion Gastrointestinal Gastrointestinal: Reports abdominal pain and diarrhea; Denies constipation, melena or vomiting Genitourinary Genitourinary ED: Denies dysuria, hematuria or urinary frequency Musculoskeletal Musculoskeletal: Denies arthralgias, back pain, myalgias or neck pain Integumentary Denies rash Neurologic Neurologic: Denies headache(s) or paresthesias Endocrine Endocrinology: Denies polydipsia, polyphagia or polyuria Hematologic/Lymphatic Hematologic/Lymphatic: Denies easy bleeding or easy bruising EXAM Physical Exam Const Vital Signs: 07/09/22 16:16 Temperature 97.3 F L Temperature Source Temporal Pulse Rate 72 Respiratory Rate 18 Blood Pressure 153/82 H Blood Pressure Mean 105 Pulse Ox 97 Oxygen Delivery Method Room Air Positive well nourished, well developed and obese Constitutional Narrative: Patient appears ill. He is pale in appearance. General Appearance ED: well developed and pallor; Negative for NAD Nutritional Appearance: obese HEENT Reports TM's clear and dry mucous membranes normocephalic and atraumatic Tympanic Membrane ED: Yes TM's clear Mouth ED: Yes dry mucous membranes Mouth: dry mucous membranes Eyes PERRL and EOMs intact bilaterally General Eye ED: Yes pale conjunctiva; Negative for scleral icterus Neck no lymphadenopathy, supple and no JVD Resp normal respiratory effort and clear to auscultation bilaterally Cardio regular rate, regular rhythm, S1 normal heart sound, S2 normal heart sound and no murmurs GI no masses; Negative for non-tender or non-distended Auscultation: hyperactive bowel sounds Palpation: soft and tender epigastric; Negative for guarding, rigid, hepatomega ly, splenomegaly, hernia, mass, pulsatile mass or rebound tenderness present Back/Spine no CVA tenderness Extremity full ROM Extremity Narrative: Patient has a fistula noted left distal dorsal forearm with a palpable thrill. General Extremety ED: Negative for tenderness Neuro CN's II-XII intact bilaterally and moves all extremities Sensorium / Orientation: alert Psych mental status grossly normal and thought process normal Skin no wounds General Skin Exam: pallor; Negative for jaundice Lesions: no lesions Rashes: no rashes MDM MDM MDM Narrative Medical decision making narrative: Patient presents with profuse diarrhea. This may represent a viral gastroenteritis and specifically rotavirus versus infectious diarrhea. Will obtain CBC to assess white count differential. Since patient appears pale we will also evaluate for anemia. Basic metabolic panel was obtained to assess for hypokalemia since he has had profuse diarrhea. We will also compare his prior BUN and creatinine. He is dialyzed on Sunday, Sunday and Sunday. Since clinically patient is dehydrated he was given a fluid bolus. Clinically there is no evidence for heart failure. History & Record Review Discussion w/independent historian: Patient Additional record(s) reviewed:: Prior inpatient record, Prior outpatient record, Prior ED visit and Prior labs Lab Data Attestation: I reviewed the patient's lab results. Lab results narrative: CBC reveals mild shift with no bandemia. Basic metabolic panel reveals hypokalemia. Patient was given a dose of potassium p.o. He was not prescribed potassium since he has failed. Since C. difficile is negative will discharge to home with appropriate home-going instructions. Labs: Laboratory Results - last 24 hr 07/09/22 07/09/22 16:40 16:40 WBC 8.1 RBC 4.01 L Hgb 12.3 L Hct 38.2 L MCV 95.3 H MCH 30.7 MCHC 32.2 RDW Std Deviation 46.0 H RDW Coeff of Colleen 13.1 Plt Count 192 MPV 10.9 Immature Gran % (Auto) 0.200 Neut % (Auto) 74.8 H Lymph % (Auto) 13.2 L [place]field % (Auto) 9.4 Eos % (Auto) 2.2 Baso % (Auto) 0.2 Absolute Neuts (auto) 6.1 Absolute Lymphs (auto) 1.07 Nucleated RBC % 0 Sodium 139 Potassium 2.8 L Chloride 99 Carbon Dioxide 27.0 Anion Gap 13 BUN 52 H Creatinine 6.95 H Estim Creat Clear Calc 7.27 Est GFR (MDRD) Af Amer 10 L Est GFR (MDRD) Non-Af 8 L BUN/Creatinine Ratio 7.5 L Glucose 158 H Calcium 8.9 Treatment and Re-Evaluation :: Patient improved with therapy. He would like to go home. He was informed of his results. Discharge Plan Triage Chief Complaint: Abd Pain ED Provider: Eric Arredondo Dx/Rx/DC Orders Clinical Impression: Diarrhea in adult patient, Chronic renal failure, stage 3 (moderate), Benign essential hypertension, ALY (obstructive sleep apnea), Pulmonary hypertension, Acute hypokalemia, Acute dehydration, End-stage renal disease on hemodialysis Instructions: ED Diarrhea, Unknown Cause Prescriptions: No Action acetaminophen 325 mg capsule 650 mg PO Q6H PRN PRN (Reason: pain/fever) loratadine 10 mg tablet 10 mg PO DAILY furosemide 40 mg tablet 40 mg PO BID levothyroxine 50 mcg tablet 50 mcg PO DAILY tamsulosin [Flomax] 0.4 mg capsule 0.4 mg PO QHS buspirone 5 mg tablet 5 mg PO BID omega 3-dyj-xdl-fish oil [Fish Oil] 60-90-500 mg capsule 1 cap PO BID Acidophilus Capsule 10 mg PO DAILY pantoprazole 40 mg tablet,delayed release (DR/EC) 40 mg PO DAILY guaifenesin [Mucinex] 600 mg tablet extended release 12hr 600 mg PO BID fluticasone propionate [Allergy Relief (fluticasone)] 50 mcg/actuation spray,suspension 1 spray intranasal DAILY Rx Instructions: administer into each nostril melatonin 5 mg tablet 5 mg PO HS PRN montelukast 10 mg tablet 10 mg PO QHS finasteride 5 MG tablet 5 mg PO DAILY Label Comments: PROSTATE aspirin 81 MG tablet,chewable 81 mg PO DAILY@0800 Label Comments: BLOOD THINNER/HEART nitroglycerin 0.4 MG tablet 0.4 mg SUBLINGUAL Q5M PRN (Reason: Chest Pain) Label Comments: CHEST PAIN multivitamin [Multi-Daily] Tablet 1 tab PO DAILY acetaminophen 325 mg Tablet 325 mg PO TID ondansetron 4 mg Tablet,Disintegrating 4 mg PO Q6H PRN (Reason: Nausea) artificial tear([id number]) 0.1-0.3-0.2 % Drops 1 drp EACH EYE BID clopidogrel 75 MG tablet 75 mg PO DAILY Qty: 90 3RF pravastatin 20 mg tablet 20 mg PO QHS Qty: 90 3RF isosorbide mononitrate 30 mg tablet extended release 24 hr 30 mg PO DAILY Qty: 30 12RF Primary Care Provider: Germania Penn GRAPHOTYPE OPERATOR Referrals: Germania Penn GRAPHOTYPE OPERATOR, GRAPHOTYPE OPERATOR-C [Primary Care Provider] - 1-2 Days if not improving Activity Restrictions/Additional Instructions: 1. Take and Imodium tablet with each loose stool up to 6 in 24 hours. Disposition Disposition: Home, Self Care
[2022-07-09] MEDS: Potassium Chloride Oral Soln 20 MEQ/15 ML UDC 40 MEQ PO (19:08)
[2022-07-09] MEDS: Loperamide 2 MG Capsule 4 MG PO (19:08)
== END 2022-07-09 20:39 | disposition home or self-care (01) ==
PROVIDERS: Emergency Provider Emergency Medicine; PCP Nurse Practitioner Adult Health; Visit Provider Emergency Medicine
DX: R19.7 Diarrhea, unspecified (principal); I13.2 Hypertensive heart and chronic kidney disease with heart failure and with stage 5 chronic kidney disease, or end stage renal disease; Z99.2 Dependence on renal dialysis; I50.32 Chronic diastolic (congestive) heart failure; I27.20 Pulmonary hypertension, unspecified; N18.6 End stage renal disease; N18.30 Chronic kidney disease, stage 3 unspecified; G47.33 Obstructive sleep apnea (adult) (pediatric); R11.2 Nausea with vomiting, unspecified; I25.10 Atherosclerotic heart disease of native coronary artery without angina pectoris; Z87.891 Personal history of nicotine dependence; E78.5 Hyperlipidemia, unspecified; R10.10 Upper abdominal pain, unspecified; E87.6 Hypokalemia; H91.90 Unspecified hearing loss, unspecified ear; E86.0 Dehydration
CPT/HCPCS: 80048; 83630; 85025; 87493; 99284; A4216

== ENCOUNTER 2022-10-08 17:00 | Emergency (ER) | payer MEDICARE, MEDICAID, SELFPAY ==
[2022-10-08] VITALS (8 sets, daily range): BP systolic 137–181; BP diastolic 67–96; PULSE 60–92; RESP 12–22; TEMP 36.1–36.4; O2SAT 91–100; BMI 39.6
--- NOTE | 2022-10-08 17:34 | EKG12_ITS ---
Test Reason : CP Blood Pressure : / mmHG Vent. Rate : 076 BPM Atrial Rate : 076 BPM P-R Int : 264 ms QRS Dur : 124 ms QT Int : 426 ms P-R-T Axes : 068 -17 150 degrees QTc Int : 479 ms Sinus rhythm with sinus arrhythmia with 1st degree A-V block Left ventricular hypertrophy with QRS widening and repolarization abnormality ( Mahin product ) Abnormal ECG When compared with ECG of 03-MAY-2022 11:27, [place] interval has increased Criteria for Inferior infarct are no longer Present Nonspecific T wave abnormality has replaced inverted T waves in Inferior leads T wave inversion no longer evident in Anterior leads QT has shortened Confirmed by CARLITOS HOWE, AYAZ ([id number]), editor trade journal AMENA OLIVER ([id number]) on 10/09/2022 2:33:02 PM Referred By: KAMINI/NOELLE Confirmed By:AYAZ URBINA MD
--- NOTE | 2022-10-08 17:39 | EDS_ITS ---
HPI History of Present Illness Chief Complaint: Chest Pain Informant: patient Onset/Context/Timing Onset: Today and Hours (5) Activity at onset: gradual Timing: Continuous Quality: Positive for Burning Location: Right Chest and Left Chest Worsened By: Nothing Relieved By: - (Deep breathing) Associated Symptoms: Positive for Cough; Negative for Nausea, Vomiting, Diaphoresis, Dyspnea, Fever, Lightheadedness, Acid Reflux or Palpitations Narrative Narrative: Patient presents with chest pain that has been constant for the past 5 hours. Patient states it started on the right side and is now on the left side. Patient describes the pain as burning. Patient states the pain is constant. Patient states it is better with deep breathing. Patient states nothing makes it worse. Patient admits to a cough but denies any sputum production. Patient denies any shortness of breath. Patient denies any fevers or chills. Patient denies any nausea or vomiting. CVD Risk Factors: Positive for Hypertension and Hypercholesterolemia; Negative for Diabetes, Family History 1' </=55 or Smoking PE Risk Factors: Negative for Recent Travel/Surgery, Recent Immobilization, Prior DVT or PE or Cancer TAD Risk Factors: Positive for Hypertension PFSH PFSH Medical History Abnormal electrocardiogram Abnormal nuclear stress test Acute renal insufficiency Angina pectoris Arthritis Atherosclerosis of creek coronary artery of creek heart without angina pectoris Benign essential hypertension Benign prostatic hypertrophy without lower urinary tract symptoms BMI 40.0-44.9, adult Breast mass, left Chest pain Chest pain on exertion Chronic kidney disease Chronic renal failure, stage 3 (moderate) Coronary artery disease Diastolic heart failure Essential hypertension Fatigue Gastroesophageal reflux disease Hyperlipidemia Hypertension Hypokalemia Long-term use of high-risk medication Melanotic stools Normochromic normocytic anemia ALY (obstructive sleep apnea) Pulmonary hypertension Shortness of breath Sinus bradycardia Skin lesion Home Medications aspirin 81 mg chewable tablet 81 mg PO DAILY@0800 04/01/14 [History Last Taken 02/06/22] finasteride 5 mg tablet 5 mg PO DAILY 04/01/14 [History Last Taken 10/02/18] nitroglycerin 0.4 mg sublingual tablet 0.4 mg sublingual Q5M PRN Chest Pain 02/01/15 [History Last Taken 02/27/15] clopidogrel 75 mg tablet 75 mg PO DAILY #90 tabs 06/12/17 [Rx Last Taken 02/06/22] pravastatin 20 mg tablet 20 mg PO QHS #90 tabs 08/08/17 [Rx Last Taken 12/04/17] acetaminophen 325 mg capsule 650 mg PO Q6H PRN PRN pain/fever 02/20/18 [History Last Taken Unknown] furosemide 40 mg tablet 40 mg PO BID 05/02/18 [History Last Taken 10/02/18] levothyroxine 50 mcg tablet 50 mcg PO DAILY 05/02/18 [History Last Taken 02/23/20] loratadine 10 mg tablet 10 mg PO DAILY 10/03/18 [History Last Taken Unknown] tamsulosin 0.4 mg capsule (Flomax) 0.4 mg PO QHS 04/02/19 [History Last Taken Unknown] buspirone 5 mg tablet 5 mg PO BID 12/25/19 [History Last Taken Unknown] acetaminophen 325 mg tablet 325 mg PO TID 01/30/22 [History Last Taken Unknown] artificial tears(dxpccar-[id number]-swjmpcj) 0.1 %-0.3 %-0.2 % eye drops 1 drp EACH EYE BID 01/30/22 [History Last Taken Unknown] multivitamin 1 tab PO DAILY 01/30/22 [History Last Taken Unknown] ondansetron 4 mg disintegrating tablet 4 mg PO Q6H PRN Nausea 01/30/22 [History Last Taken Unknown] Lactobacillus acidophilus (Acidophilus capsule) 10 mg PO DAILY 05/05/22 [History Last Taken Unknown] fluticasone propionate 50 mcg/actuation nasal spray,suspension (Allergy Relief (fluticasone)) 1 spray intranasal DAILY 05/05/22 [History Last Taken Unknown] guaifenesin 600 mg tablet, extended release 12 hr (Mucinex) 600 mg PO BID 05/05/22 [History Last Taken Unknown] melatonin 5 mg tablet 5 mg PO HS PRN 05/05/22 [History Last Taken Unknown] montelukast 10 mg tablet 10 mg PO QHS 05/05/22 [History Last Taken Unknown] omega 3-all-eux-fish oil 60 mg-90 mg-500 mg capsule (Fish Oil) 1 cap PO BID 05/05/22 [History Last Taken Unknown] pantoprazole 40 mg tablet,delayed release 40 mg PO DAILY 05/05/22 [History Last Taken Unknown] isosorbide mononitrate 30 mg tablet,extended release 24 hr 30 mg PO DAILY #30 tabs 06/19/22 [Rx Last Taken Unknown] Allergy/AdvReac Type Severity Reaction Status Date / Time doxazosin mesylate Allergy Hives Verified 10/08/22 17:00 [From Cardura] fosinopril sodium Allergy Hives Verified 10/08/22 17:00 [From Monopril] lisinopril Allergy Hives Verified 10/08/22 17:00 morphine Allergy Other Verified 10/08/22 17:00 Family History Father Hypertension Cancer Brother CAD (coronary artery disease) Mother Hypertension Sister Hypertension Son Atrial fibrillation Surgical History history fistulogram (~07/27/17) History of angioplasty History of bilateral hip arthroplasty History of left breast biopsy (~06/2018) 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 S/P peripheral artery angioplasty (~03/2022) Status post right partial knee replacement Social History Smoking Status: Former smoker Tobacco: How many years used: 20 second hand exposure: No alcohol intake: never substance use type: does not use caffeine: No what type of physical activity do you participate in: none ROS ROS ED Constitutional Constitutional ED: Denies chills or fever(s) Eyes Eyes: Denies blurry vision or change in vision ENT ENT ED: Denies rhinorrhea or sore throat Cardiovascular Cardiovascular: Reports chest pain; Denies palpitations Respiratory/Chest Respiratory/Chest: Reports dyspnea; Denies cough Gastrointestinal Gastrointestinal: Denies abdominal pain, nausea or vomiting Genitourinary Genitourinary ED: Denies dysuria or hematuria Musculoskeletal Musculoskeletal: Denies back pain or neck pain Integumentary Denies abscess or rash Neurologic Neurologic: Denies headache(s) or weakness Allergic/Immunologic Allergic/Immunologic ED: Denies mouth swelling or urticaria EXAM Physical Exam Const Vital Signs: 10/08/22 17:01 10/08/22 17:07 10/08/22 17:58 Temperature 97.6 F L Temperature Source Temporal Pulse Rate 68 Respiratory Rate 18 Blood Pressure 137/71 H Blood Pressure Mean 93 Pulse Ox 100 Oxygen Delivery Method Room Air Room Air 10/08/22 17:15 10/08/22 17:30 10/08/22 18:10 Temperature Temperature Source Pulse Rate 90 68 86 Respiratory Rate 12 18 19 H Blood Pressure 143/73 H 144/67 H Blood Pressure Mean 94 91 Pulse Ox 95 91 96 Oxygen Delivery Method 10/08/22 19:20 10/08/22 20:00 Temperature Temperature Source Pulse Rate 83 60 Respiratory Rate 22 H 12 Blood Pressure 172/95 H 181/95 H Blood Pressure Mean 120 123 Pulse Ox 95 96 Oxygen Delivery Method Room Air Room Air Positive well nourished, well developed and obese General Appearance ED: well developed and NAD Nutritional Appearance: obese HEENT normocephalic and atraumatic Eyes PERRL and EOMs intact bilaterally Neck supple and no JVD Chest Wall palpation of chest normal Resp normal respiratory effort and clear to auscultation bilaterally Effort and Inspection: Negative for respiratory distress Cardio regular rate and regular rhythm GI normal to inspection, nondistended, normoactive bowel sounds, soft to palpation, non-tender and non-distended Extremity normal to inspection General Extremety ED: Negative for edema or tenderness General Extremity: Negative for edema Neuro oriented x3, CN's II-XII intact bilaterally and no sensory deficits noted Sensorium / Orientation: awake and alert Motor Exam: strength 5/5 throughout Psych mental status grossly normal Heart Score History: Slightly/Non-Suspicious ECG: Nonspecific Repolarization Age: >/= 65 years Risk Factors: >/= 3 Risk Factors or History of CAD Troponin: </= Normal Limit Score: 5 MDM MDM MDM Narrative Medical decision making narrative: Differential diagnosis includes cardiac dysrhythmia, cardiac ischemia, pneumonia, pneumothorax, GERD, musculoskeletal pain, and anxiety. EKG will be obtained to assess for cardiac dysrhythmia and cardiac ischemia. Chest x-ray will be obtained to assess for pneumonia and pneumothorax. CBC will be obtained to assess for leukocytosis and anemia. Basic metabolic profile will be obtained to assess for electrolyte abnormality and renal function. High sensitivity to will be obtained to assess for cardiac ischemia. 2-hour repeat high-sensitivity troponin will be obtained to assess for ongoing cardiac ischemia. Patient has a Wells score of 0. I do not feel this is from a pulmonary embolism. Lab Data Attestation: I reviewed the patient's lab results. Lab results narrative: CBC was reviewed and shows a mild anemia with a hemoglobin of 10.2 and hematocrit 32.0. Basic metabolic profile was reviewed. BUN was 53 and creatinine was 6.37. These are consistent with prior results. High-sensitivity troponin was reviewed and was normal at 61. 2-hour repeat high-sensitivity troponin was reviewed and was normal at 66. Labs: Laboratory Results - last 24 hr 10/08/22 10/08/22 10/08/22 17:52 17:52 20:16 WBC 8.1 RBC 3.32 L Hgb 10.2 L Hct 32.0 L MCV 96.4 H MCH 30.7 MCHC 31.9 L RDW Std Deviation 48.3 H RDW Coeff of Colleen 13.6 Plt Count 192 MPV 11.5 Immature Gran % (Auto) 0.200 Neut % (Auto) 68.8 Lymph % (Auto) 18.2 L [place] % (Auto) 7.4 Eos % (Auto) 4.8 Baso % (Auto) 0.6 Absolute Neuts (auto) 5.6 Absolute Lymphs (auto) 1.48 Nucleated RBC % 0 Sodium 140 Potassium 3.5 Chloride 101 Carbon Dioxide 30.0 Anion Gap 9 BUN 53 H Creatinine 6.37 H Estim Creat Clear Calc 7.79 Est GFR (MDRD) Af Amer 11 L Est GFR (MDRD) Non-Af 9 L BUN/Creatinine Ratio 8.3 L Glucose 153 H Calcium 8.9 Troponin I High Sens 61 66 Radiography Chest X-Ray - ED: 1 View, Read by ED Physician, Read by Radiologist and No Acute Disease Diagnostic Testing: Clinical Impression(s) from Imaging Studies Chest X-Ray 10/08/22 17:40 IMPRESSION: No definite acute or significant abnormality seen. Electronically Signed: Seng Verde MD at 18:14 EDT , Portable 1 view chest x-ray was obtained. On my independent interpretation, lung garcia are clear. There is normal cardiac silhouette. Bony thorax is normal. There is no acute process noted. Radiologist also interpreted the x- ray and agrees. EKG Initial EKG: Attestation: I personally reviewed and interpreted this EKG as follows: Interpretation: Sinus Rhythm (76 with first-degree AV block) and Non- Specific ST Changes Comments: EKG was obtained. On my interpretation, it shows normal sinus rhythm with first-degree AV block with a rate of 76. ND interval was prolonged at 264 ms. QRS interval was 124 ms. QTc interval was 479 ms. [place] was borderline at -17. There are nonspecific ST-T wave changes. There is evidence of left ventricular hypertrophy. Prior EKG tracings: available for review Prior: Unchanged (05/03/2022) Treatment and Re-Evaluation :: Patient was given aspirin here. Patient was feeling better on reevaluation. Patient was advised of his findings. Patient was instructed to follow-up with his primary care physician in 3 to 5 days. Patient was instructed return if worse in any way. Patient understood and was agreeable with the plan. All questions were answered. Discharge Plan Triage Chief Complaint: Chest Pain ED Provider: Julio Cesar Uriarte Dx/Rx/DC Orders Clinical Impression: Chest pain, Chronic renal failure, stage 3 (moderate) Instructions: ED Chest Pain, Uncertain Cause Prescriptions: No Action acetaminophen 325 mg capsule 650 mg PO Q6H PRN PRN (Reason: pain/fever) loratadine 10 mg tablet 10 mg PO DAILY furosemide 40 mg tablet 40 mg PO BID levothyroxine 50 mcg tablet 50 mcg PO DAILY tamsulosin [Flomax] 0.4 mg capsule 0.4 mg PO QHS buspirone 5 mg tablet 5 mg PO BID omega 9-pka-viw-fish oil [Fish Oil] 60-90-500 mg capsule 1 cap PO BID Acidophilus Capsule 10 mg PO DAILY pantoprazole 40 mg tablet,delayed release (DR/EC) 40 mg PO DAILY guaifenesin [Mucinex] 600 mg tablet extended release 12hr 600 mg PO BID fluticasone propionate [Allergy Relief (fluticasone)] 50 mcg/actuation spray,suspension 1 spray intranasal DAILY Rx Instructions: administer into each nostril melatonin 5 mg tablet 5 mg PO HS PRN montelukast 10 mg tablet 10 mg PO QHS finasteride 5 MG tablet 5 mg PO DAILY Label Comments: PROSTATE aspirin 81 MG tablet,chewable 81 mg PO DAILY@0800 Label Comments: BLOOD THINNER/HEART nitroglycerin 0.4 MG tablet 0.4 mg SUBLINGUAL Q5M PRN (Reason: Chest Pain) Label Comments: CHEST PAIN multivitamin [Multi-Daily] Tablet 1 tab PO DAILY acetaminophen 325 mg Tablet 325 mg PO TID ondansetron 4 mg Tablet,Disintegrating 4 mg PO Q6H PRN (Reason: Nausea) artificial tear(dfmgi-prs-wfm) 0.1-0.3-0.2 % Drops 1 drp EACH EYE BID clopidogrel 75 MG tablet 75 mg PO DAILY Qty: 90 3RF pravastatin 20 mg tablet 20 mg PO QHS Qty: 90 3RF isosorbide mononitrate 30 mg tablet extended release 24 hr 30 mg PO DAILY Qty: 30 12RF Primary Care Provider: Germania Penn [employer] CHAIR Referrals: Germania Penn [employer] DEPARTMENT CHAIR, [employer] DEPARTMENT CHAIR-C [Primary Care Provider] - 3-5 Days Disposition Disposition: Home, Self Care
--- NOTE | 2022-10-08 17:40 | RAD_ITS ---
STUDY: X-RAY CHEST REASON FOR EXAM: Male, 82 years old. chest pain TECHNIQUE: Single AP portable view of the chest. COMPARISON: 05/03/2022. FINDINGS: The lungs are clear and expanded. Small bilateral calcified pleural plaques are seen, stable. Normal size heart. Normal mediastinum and iftikhar. Normal visualized pulmonary arteries. There is atherosclerotic tortuosity of the aortic arch and descending thoracic aorta. Normal visualized thoracic spine. Normal visualized ribs, clavicles, and shoulders. There is no demonstrated abnormality of the visualized soft tissue structures of the upper abdomen. RAD/Chest 1 View (Portable) IMPRESSION: No definite acute or significant abnormality seen. Electronically Signed: Seng Verde MD at 18:14 EDT ,
[2022-10-08] MEDS: Aspirin 81 MG TAB.CHEW 324 MG PO (17:53)
[2022-10-08 18:00] LABS: Absolute Lymphocyte Count 1.48 X10^3/uL (0.83-4.51); Absolute Neutrophil Count 5.6 X10^3/uL (2.0-7.7); Basophil# 0.05 X10^3/uL; Basophil% 0.6 % (0-1); Eosinophil# 0.39 X10^3/uL; Eosinophils% 4.8 % (0-5); Hemoglobin 10.2 g/dL (13.0-16.5); Lymphocyte # 1.48 X10^3/ul (0.83-4.51); Lymphocyte % 18.2 % (19-41); Mean Corp Hgb Conc 31.9 g/dL (32-36); Mean Corpuscular Hgb 30.7 pg (27.0-32.0); Mean Corpuscular Volume 96.4 fL (80-94); Mean Platelet Vol. 11.5 fl (6.2-12.0); Monocyte% 7.4 % (0-10); NRBC Flagged by Analyzer 0 % (0-5); Neutrophil # 5.59 X10^3/uL (2.7-7.7); Neutrophil % 68.8 % (47-70); Platelet Count 192 K/mm3 (150-450); RBC Distribution Width CV 13.6 % (11.6-14.6); RBC Distribution Width SD 48.3 fl (35.1-43.9); Red Blood Count 3.32 M/mm3 (4.6-6.2); White Blood Count 8.1 K/mm3 (4.4-11.0)
[2022-10-08 18:17] LABS: Anion Gap 9 (5-15); BUN 53 mg/dL (7-18); BUN/Creat Ratio 8.3 RATIO (10-20); Calcium,Total 8.9 mg/dL (8.5-10.1); Chloride 101 mmol/L (98-107); Creatinine, Serum 6.37 mg/dL (0.70-1.30); EST Glomerular Filtration Rate 9 mL/min (>60); Est Glom Filt Rate - Afr Amer 11 mL/min (>60); Estimated Creatinine Clearance 7.79 ml/min; Glucose 153 mg/dL (74-106); Potassium 3.5 mmol/L (3.5-5.1); Sodium Level 140 mmol/L (136-145); Troponin-I HS (w/2H Reflex) 61 pg/mL (3.0-78.0)
[2022-10-08 19:57] LABS: Reflex Troponin-HS? (from REC) Y
[2022-10-08 20:37] LABS: Troponin-I HS 66 pg/mL (3.0-78.0)
== END 2022-10-08 22:14 | disposition home or self-care (01) ==
PROVIDERS: Emergency Provider Emergency Medicine; PCP Nurse Practitioner Adult Health; Visit Provider Emergency Medicine
DX: R07.9 Chest pain, unspecified (principal); I13.0 Hypertensive heart and chronic kidney disease with heart failure and stage 1 through stage 4 chronic kidney disease, or unspecified chronic kidney disease; I50.32 Chronic diastolic (congestive) heart failure; N18.30 Chronic kidney disease, stage 3 unspecified; E78.00 Pure hypercholesterolemia, unspecified; Z87.891 Personal history of nicotine dependence; I25.10 Atherosclerotic heart disease of native coronary artery without angina pectoris; E66.9 Obesity, unspecified; G47.33 Obstructive sleep apnea (adult) (pediatric); Z79.82 Long term (current) use of aspirin
CPT/HCPCS: 71045; 80048; 84484; 85025; 93005; 99284; A4216

== ENCOUNTER → 2022-10-09 | Outpatient (CLI) | payer MEDICARE, BC, MEDICAID, SELFPAY | END | disposition home or self-care (01) | PROVIDERS: PCP Nurse Practitioner Adult Health; Visit Provider Nurse Practitioner Adult Health | DX: G47.33 Obstructive sleep apnea (adult) (pediatric) (principal); G47.10 Hypersomnia, unspecified | CPT/HCPCS: 95811 ==

== ENCOUNTER → 2022-10-26 | Outpatient (CLI) | payer MEDICARE, BC, MEDICAID, SELFPAY ==
--- NOTE | 2022-10-26 07:42 | ECHOD_ITS ---
Reason For Study: CHF Procedure This was a 2D Doppler, Color Flow transthoracic echocardiogram. Exam performed in department. Left Ventricle Normal LV size. Moderate concentric left ventricular hypertrophy. The left ventricular ejection fraction is 20 %. Severe global left ventricular systolic dysfunction. There is severe global hypokinesis of the left ventricle. Right Ventricle Normal RV size. Normal systolic function. Atria The left atrium is moderately enlarged. The right atrium is mildly enlarged. Mitral Valve There is mild mitral annular calcification. Mild-Moderate (1-2+) eccentric mitral valve insufficiency. Tricuspid Valve Normal tricuspid valve. Mild (1+) tricuspid valve insufficiency. Aortic Valve Trisinus/trileaflet aortic valve. Moderate diffuse aortic valve calcification. Pulmonic Valve Normal pulmonic valve. Great Vessels Normal aortic root. The pulmonary artery is normal size. Normal inferior vena cava. Pericardium/Pleural No pericardial effusion. MMode/2D Measurements & Calculations LVIDd: 5.2 cm IVSd: 1.4 cm LVOT diam: 2.2 cm LVIDs: 4.1 cm LVPWd: 1.6 cm LVOT area: 3.9 cm2 RVDd: 3.7 cm FS: 21.4 % Ao root diam: 3.6 cm LAV(MOD-bp): 100.8 ml LVAd ap4: 40.7 cm2 LAV(MOD-bp) Indexed: 46.6 ml/m2 LVLd ap4: 9.6 cm LAV(MOD-sp2): 91.9 ml EDV(MOD-sp4): 137.2 ml LAV(MOD-sp4): 96.8 ml EDV(sp4-el): 145.5 ml LVAs ap4: 31.1 cm2 LVLs ap4: 8.4 cm ESV(MOD-sp4): 94.0 ml ESV(sp4-el): 96.9 ml EF(MOD-sp4): 31.5 % EF(sp4-el): 33.4 % LVAd ap2: 43.7 cm2 SV(MOD-sp4): 43.3 ml SV(MOD-sp2): 52.8 ml LVLd ap2: 9.8 cm EDV(MOD-sp2): 168.3 ml EDV(sp2-el): 165.0 ml LVAs ap2: 34.9 cm2 LVLs ap2: 8.9 cm ESV(MOD-sp2): 115.5 ml ESV(sp2-el): 116.4 ml EF(MOD-sp2): 31.4 % SV(sp4-el): 48.6 ml LA dimension(2D): 4.8 cm LA A4 area: 29.0 cm2 RA A4 area: 23.0 cm2 TAPSE: 1.5 cm Doppler Measurements & Calculations MV E max cisco: 159.3 cm/sec Lat Peak E' Cisco: 6.3 cm/sec Med Peak E' Cisco: 7.3 cm/sec E/E' lat: 25.5 E/E' med: 22.0 MV V2 max: 192.2 cm/sec Ao V2 max: 175.4 cm/sec LV V1 max: 116.0 cm/sec MV max P.8 mmHg Ao max P.3 mmHg LV V1 max P.4 mmHg MV V2 mean: 120.6 cm/sec Ao V2 mean: 127.0 cm/sec LV V1 mean P.6 mmHg MV mean P.9 mmHg Ao mean P.3 mmHg LV V1 mean: 91.2 cm/sec MV V2 VTI: 38.9 cm Ao V2 VTI: 37.6 cm LV V1 VTI: 25.0 cm MVA(VTI): 2.5 cm2 AV (velocity ratio): 0.67 MAGDY(I,D): 2.6 cm2 MAGDY(V,D): 2.6 cm2 MR max cisco: 449.9 cm/sec SV(LVOT): 98.5 ml PA V2 max: 96.5 cm/sec MR max P.0 mmHg PA V2 mean: 68.6 cm/sec PI dec slope: 174.1 cm/sec2 ECHO/Echo Complete Interpretation Summary Normal LV size. The left ventricular ejection fraction is 20 %. Severe global left ventricular systolic dysfunction. Mild-Moderate (1-2+) eccentric mitral valve insufficiency. Mild (1+) tricuspid valve insufficiency. Moderate concentric left ventricular hypertrophy. The global longitudinal strain is severely abnormal. The global longitudinal st rain = -10.3% (abnormal). Compared to previous study, the left ventricular systolic function has worsened.. Ordering Physician: Alok Soto Referring Physician: Alok Soto Performed By: Lizy Lopez RCS
== END | disposition home or self-care (01) ==
PROVIDERS: PCP Nurse Practitioner Adult Health; Referring Provider Nurse Practitioner Family; Visit Provider Nurse Practitioner Family
DX: I50.32 Chronic diastolic (congestive) heart failure (principal); Z99.2 Dependence on renal dialysis; N18.30 Chronic kidney disease, stage 3 unspecified; Z98.61 Coronary angioplasty status; I25.10 Atherosclerotic heart disease of native coronary artery without angina pectoris; D64.9 Anemia, unspecified
CPT/HCPCS: 93306

== ENCOUNTER → 2022-12-12 | Outpatient (CLI) | payer MEDICARE, BC, MEDICAID, SELFPAY ==
[2022-12-12 08:57] LABS: Absolute Lymphocyte Count 1.48 X10^3/uL (0.83-4.51); Absolute Neutrophil Count 6.2 X10^3/uL (2.0-7.7); Basophil# 0.03 X10^3/uL; Basophil% 0.3 % (0-1); Eosinophil# 0.43 X10^3/uL; Eosinophils% 4.8 % (0-5); Hematocrit 35.6 % (40-54); Hemoglobin 11.2 g/dL (13.0-16.5); Lymphocyte # 1.48 X10^3/ul (0.83-4.51); Lymphocyte % 16.6 % (19-41); Mean Corp Hgb Conc 31.5 g/dL (32-36); Mean Corpuscular Hgb 30.4 pg (27.0-32.0); Mean Corpuscular Volume 96.5 fL (80-94); Mean Platelet Vol. 10.5 fl (6.2-12.0); Monocyte# 0.76 X10^3/uL; Monocyte% 8.5 % (0-10); NRBC Flagged by Analyzer 0 % (0-5); Neutrophil # 6.21 X10^3/uL (2.7-7.7); Neutrophil % 69.5 % (47-70); Platelet Count 202 K/mm3 (150-450); RBC Distribution Width CV 14.5 % (11.6-14.6); RBC Distribution Width SD 51.1 fl (35.1-43.9); Red Blood Count 3.69 M/mm3 (4.6-6.2); White Blood Count 8.9 K/mm3 (4.4-11.0)
[2022-12-12 09:10] LABS: Anion Gap 8 (5-15); BUN 32 mg/dL (7-18); Calcium,Total 9.7 mg/dL (8.5-10.1); Chloride 100 mmol/L (98-107); EST Glomerular Filtration Rate 11 mL/min (>60); Est Glom Filt Rate - Afr Amer 13 mL/min (>60); Glucose 151 mg/dL (74-106); Potassium 3.7 mmol/L (3.5-5.1); Sodium Level 139 mmol/L (136-145)
== END | disposition home or self-care (01) ==
PROVIDERS: PCP Nurse Practitioner Adult Health; Referring Provider Physician Assistant; Visit Provider Physician Assistant
DX: T82.898A Other specified complication of vascular prosthetic devices, implants and grafts, initial encounter (principal)
CPT/HCPCS: 36415; 80048; 85025

== ENCOUNTER 2023-01-09 10:10 | Day surgery (SDC) | payer MEDICARE, BC, MEDICAID, SELFPAY ==
[2023-01-08 15:14] VITALS: BMI 39.5
--- NOTE | 2023-01-09 11:05 | HP.PCM_ITS ---
History and Physical Date of Admission: 01/09/23 Visit Reasons: POSSIBLE FISTULOGRAM Chief Complaint: possible fistulogram Is patient in pain?: No Allergies doxazosin mesylate [From Cardura] Allergy (Verified 12/12/22 07:56) Hivesfosinopril sodium [From Monopril] Allergy (Verified 12/12/22 07:56) Hiveslisinopril Allergy (Verified 12/12/22 07:56) Hivesmorphine Allergy (Verified 12/12/22 07:56) Other Medications aspirin 81 mg chewable tablet 81 mg PO DAILY@0800 04/01/14 [History Confirmed 12/12/22] finasteride 5 mg tablet 5 mg PO DAILY 04/01/14 [History Confirmed 12/12/22] nitroglycerin 0.4 mg sublingual tablet 0.4 mg sublingual Q5M PRN Chest Pain 02/01/15 [History Confirmed 12/12/22] clopidogrel 75 mg tablet 75 mg PO DAILY #90 tabs 06/12/17 [Rx Confirmed 12/12/22] pravastatin 20 mg tablet 20 mg PO QHS #90 tabs 08/08/17 [Rx Confirmed 12/12/22] acetaminophen 325 mg capsule 650 mg PO Q6H PRN PRN pain/fever 02/20/18 [History Confirmed 12/12/22] furosemide 40 mg tablet 40 mg PO BID 05/02/18 [History Confirmed 12/12/22] levothyroxine 50 mcg tablet 50 mcg PO DAILY 05/02/18 [History Confirmed 12/12/22] loratadine 10 mg tablet 10 mg PO DAILY 10/03/18 [History Confirmed 12/12/22] tamsulosin 0.4 mg capsule (Flomax) 0.4 mg PO QHS 04/02/19 [History Confirmed 12/12/22] buspirone 5 mg tablet 5 mg PO BID 12/25/19 [History Confirmed 12/12/22] acetaminophen 325 mg tablet 325 mg PO TID 01/30/22 [History Confirmed 12/12/22] artificial tears(itovmxz-jgsosakq-rssscnp) 0.1 %-0.3 %-0.2 % eye drops 1 drp EACH EYE BID 01/30/22 [History Confirmed 12/12/22] multivitamin 1 tab PO DAILY 10/03/22 [History Confirmed 12/12/22] ondansetron 4 mg disintegrating tablet 4 mg PO Q6H PRN Nausea 01/30/22 [History Confirmed 12/12/22] Lactobacillus acidophilus (Acidophilus capsule) 10 mg PO DAILY 05/05/22 [History Confirmed 12/12/22] fluticasone propionate 50 mcg/actuation nasal spray,suspension (Allergy Relief (fluticasone)) 1 spray intranasal DAILY 05/05/22 [History Confirmed 12/12/22] guaifenesin 600 mg tablet, extended release 12 hr (Mucinex) 600 mg PO BID 05/05/22 [History Confirmed 12/12/22] melatonin 5 mg tablet 5 mg PO HS PRN 05/05/22 [History Confirmed 12/12/22] montelukast 10 mg tablet 10 mg PO QHS 05/05/22 [History Confirmed 12/12/22] omega 5-dur-ack-fish oil 60 mg-90 mg-500 mg capsule (Fish Oil) 1 cap PO BID 05/05/22 [History Confirmed 12/12/22] pantoprazole 40 mg tablet,delayed release 40 mg PO DAILY 05/05/22 [History Confirmed 12/12/22] isosorbide mononitrate 30 mg tablet,extended release 24 hr 30 mg PO DAILY #30 tabs 06/19/22 [Rx Confirmed 12/12/22] PFSH Medical History Abnormal electrocardiogram Abnormal nuclear stress test Acute renal insufficiency Angina pectoris Arthritis Atherosclerosis of [place] coronary artery of [place] heart without angina pectoris Benign essential hypertension Benign prostatic hypertrophy without lower urinary tract symptoms BMI 40.0-44.9, adult Breast mass, left Chest pain Chest pain on exertion Chronic kidney disease Chronic renal failure, stage 3 (moderate) Coronary artery disease Diastolic heart failure Essential hypertension Fatigue Gastroesophageal reflux disease Hyperlipidemia Hypertension Hypokalemia Long-term use of high-risk medication Melanotic stools Normochromic normocytic anemia ALY (obstructive sleep apnea) Pulmonary hypertension Shortness of breath Sinus bradycardia Skin lesion Surgical History history fistulogram (~07/27/17) History of angioplasty History of bilateral hip arthroplasty History of left breast biopsy (~06/2018) 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 S/P peripheral artery angioplasty (~03/2022) Status post right partial knee replacement Family History Father Hypertension CancerBrother CAD (coronary artery disease)Mother HypertensionSister HypertensionSon Atrial fibrillation Social History Smoking Status: Former smoker Tobacco: How many years used: 20 second hand exposure: No alcohol intake: never substance use type: does not use caffeine: No what type of physical activity do you participate in: none HPI HPI HPI: Patient is an 82 y/o M I am seeing for prolonged bleeding from his left forearm radiocephalic arteriovenous hemodialysis fistula. Patient states for approximately 1-2 weeks he has noted holding pressure post-treatment on average for 40 minutes. He notes the top access site tends to bleed longer than the bottom access site. He is at dialysis [facility]. Patient's most recent fistula intervention was by Dr. Brown on 02/09/22. 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 Patient also has 2 areas of aneurysmal change. Patient currently resides at [facility]. Patient's son is present with him and does assist with transportation. Patient denies numbness/tingling/pain in the fistula extremity. ROS General General: No weight change, appetite, fatigue, colon cancer, breast cancer or weakness HEENT HEENT: No difficulty swallowing, eye injury, eye surgery, swollen glands or hoarseness Endo Endocrine: No thyroid disease, diabetes mellitus, thyroid cancer, Hair loss, heat intolerance or cold intolerance Skin Skin: No rash or changing moles Musc Musculoskeletal: Yes back problems and arthritis; No rheumatoid arthritis, gout or joint pain Cardio Cardiovascular: Yes heart disease and heart stent; No murmur, pacemaker, atrial fibrillation, high blood pressure, heart attack, palpitations, shortness of breat with exertion or chest pain Psych Psychiatric: No depression, anxiety or hearing voices Resp Respiratory: Yes shortness of breath, Yes sleep apnea, Yes cough, Yes COPD, No asthma, No emphysema and No wheezing Gastro Gastrointestinal: No abdominal pain, No nausea or vomiting, No diarrhea, No constipation, No blood in stool, No acid reflux, No hemorrhoids, No ulcers, No gallbladder problem and No black,tarry stools [place] Hematologic: Yes blood thinners, No blood disorders, No bleeding, No anemia and No blood clots Neuro Neurologic: No system reviewed and no additional complaints, except as documented, No as per HPI, No abnormal gait, No abnormal hearing, No abnormal movements, No abnormal speech, No behavioral changes, No burning sensations, No confusion, No convulsions, No disequilibrium, No dizziness, No localized weakness, No frequent falls, No headache(s), No lack of coordination, No loss of vision, No memory loss, Yes numbness, No other visual disturbances, No radicular pain, No restless legs, No sensory deficit, No syncope, Yes tingling, No tremor(s), No weakness and No other Exam Const General: cooperative, healthy appearing, comfortable and no acute distress HENMT Head: normal to inspection Eyes General: appearance normal, both eyes and all related structures Neck Neck: normal visual inspection Neck mass: No Resp Effort & Inspection: normal respiratory effort Auscultation: clear to auscultation bilaterally Cardio Rate: regular rate Rhythm: regular rhythm GI Inspection: normal to inspection Palpation: soft Auscultation: normal bowel sounds Musc Cervical Spine: normal cervical lordosis Skin General: no rashes or lesions noted Neuro General: no focal motor deficits and CN's II-XI intact bilaterally Extrem Other: Left forearm AV fistula- 2 areas of aneurysmal changes noted. Skin intact, no ulcerations noted. Fistula with good pulse, bruit and thrill. Just inferior to the antecubital crease there is an area of high-pitched bruit indicating stenosis in this area. Psych Appearance: grossly normal Affect: normal affect Assessment and Plan Assessment and Plan (1) Problem with dialysis access: Status: Acute Qualifiers: Encounter type: initial encounter Qualified Code(s): T82.898A - Other specified complication of vascular prosthetic devices, implants and grafts, initial encounter Plan: Dr. Brown will plan to perform a non-urgent left forearm fistulogram. Procedure details, risks and benefits have been explained. Patient will hold Plavix for 2 days. He may continue his aspirin. Orders were filled out and sent to the senior living along with the instructions. Patient and his son have had the opportunity to ask and have questions answered. Patient verbally understands and agrees with the plan I have examined the patient and the H&P has been reviewed. There are no clinical changes since date of exam. Liam Brown M.D., F.A.C.S.
--- NOTE | 2023-01-09 12:06 | PCM.OPRPT ---
Report of Operation Date of Procedure: 01/09/23 Pre-Operative Diagnosis: Increased bleeding left forearm radiocephalic arteriovenous hemodialysis fistula Post-Operative Diagnosis: Antecubital space venous outflow stenosis Surgery/Procedure Performed:: Left upper extremity fistulogram with 9 x 2 [place] angioplasty Description of Surgical Findings:: Timeout informed consent was obtained. 82-year-old gentleman was taken to the special procedures lab placed on the table the left upper extremity sterilely prepped and draped 1% lidocaine was instilled close to the arterial anastomosis micropuncture needle inserted micropuncture wire inserted 6 [place] short sheath dilator was inserted using Isovue fistulogram obtained of the forearm and upper arm area this demonstrated recurrent stenosis close to the antecubital space. There is 2 areas of aneurysmal change of the forearm. We placed a stiff Glidewire and a 9 x 2 [place] balloon and performed balloon angioplasty of this area of stenosis up to 3 minutes we did that twice. While the balloon was inflated I got a retrograde study of the arterial anastomosis widely patent. At the completion there appeared to be improved flow. There was a very nicely palpable thrill sheath was removed few suture of 4-0 nylon was placed hemostasis was intact Images demonstrate a left forearm radiocephalic arteriovenous hemodialysis fistula with 2 areas of aneurysmal change at the forearm and at the antecubital area a moderate degree of outflow stenosis which appeared to respond nicely to the 9 x 2 [place] balloon. There appears to be good upper arm and central venous outflow The patient had eaten breakfast so no IV sedation was given though he seemed to be comfortable and slept through much of the procedure. Liam Brown M.D., F.A.C.S. Surgeon: Liam Brown
== END 2023-01-09 13:15 | disposition home or self-care (01) ==
LOC: CLSP 10:19
PROVIDERS: PCP Nurse Practitioner Adult Health; Referring Provider Surgery; Visit Provider Surgery
DX: T82.898A Other specified complication of vascular prosthetic devices, implants and grafts, initial encounter (principal); I13.0 Hypertensive heart and chronic kidney disease with heart failure and stage 1 through stage 4 chronic kidney disease, or unspecified chronic kidney disease; I50.32 Chronic diastolic (congestive) heart failure; N18.30 Chronic kidney disease, stage 3 unspecified; I25.10 Atherosclerotic heart disease of native coronary artery without angina pectoris; N40.0 Benign prostatic hyperplasia without lower urinary tract symptoms; Z87.891 Personal history of nicotine dependence; E78.5 Hyperlipidemia, unspecified; Z79.82 Long term (current) use of aspirin; G47.33 Obstructive sleep apnea (adult) (pediatric); Z79.899 Other long term (current) drug therapy; Z82.49 Family history of ischemic heart disease and other diseases of the circulatory system
CPT/HCPCS: 36902; Q9967; C1769

== ENCOUNTER 2023-01-24 16:02 | Emergency (ER) | payer MEDICARE, BC, MEDICAID, SELFPAY ==
[2023-01-24 16:03] VITALS: BP 139/80; PULSE 95; RESP 18; TEMP 36.3; O2SAT 100
--- NOTE | 2023-01-24 16:17 | EDS_ITS ---
HPI History of Present Illness Chief Complaint: Itching Informant: patient Onset/Context/Timing Onset: Month(s) (1) Context: Gradual Onset Timing: Intermittent Quality: Pruritic Location: Generalized Worsened by: Nothing Relieved by: Nothing Narrative Narrative: Patient presents with itching that has been intermittent for the past month. Patient states he itches all over. Patient states nothing makes it better or worse. Patient does admit to some swelling of his calves. Patient went to dialysis today and came here after dialysis. Patient denies any fevers or chills. Patient denies any nausea or vomiting. Patient denies any chest pain or shortness of breath. Patient denies any rashes. [facility] Medical History Abnormal electrocardiogram Abnormal nuclear stress test Acute renal insufficiency Angina pectoris Arthritis Atherosclerosis of [place] coronary artery of [place] heart without angina pectoris Benign essential hypertension Benign prostatic hypertrophy without lower urinary tract symptoms BMI 40.0-44.9, adult Breast mass, left Chest pain Chest pain on exertion Chronic kidney disease Chronic renal failure, stage 3 (moderate) Coronary artery disease Diastolic heart failure Essential hypertension Fatigue Gastroesophageal reflux disease Hyperlipidemia Hypertension Hypokalemia Long-term use of high-risk medication Melanotic stools Normochromic normocytic anemia ALY (obstructive sleep apnea) Pulmonary hypertension Shortness of breath Sinus bradycardia Skin lesion Home Medications aspirin 81 mg chewable tablet 81 mg PO DAILY@0800 04/01/14 [History Last Taken 02/06/22] finasteride 5 mg tablet 5 mg PO DAILY 04/01/14 [History Last Taken 10/02/18] nitroglycerin 0.4 mg sublingual tablet 0.4 mg sublingual Q5M PRN Chest Pain 02/01/15 [History Last Taken 02/27/15] clopidogrel 75 mg tablet 75 mg PO DAILY #90 tabs 06/12/17 [Rx Last Taken 01/09/23] pravastatin 20 mg tablet 20 mg PO QHS #90 tabs 08/08/17 [Rx Last Taken 12/04/17] acetaminophen 325 mg capsule 650 mg PO Q6H PRN PRN pain/fever 02/20/18 [History Last Taken Unknown] furosemide 40 mg tablet 40 mg PO BID 05/02/18 [History Last Taken 10/02/18] levothyroxine 50 mcg tablet 50 mcg PO DAILY 05/02/18 [History Last Taken 02/23/20] loratadine 10 mg tablet 10 mg PO DAILY 10/03/18 [History Last Taken Unknown] tamsulosin 0.4 mg capsule (Flomax) 0.4 mg PO QHS 04/02/19 [History Last Taken Unknown] buspirone 5 mg tablet 5 mg PO BID 12/25/19 [History Last Taken 01/09/23] acetaminophen 325 mg tablet 325 mg PO TID 01/30/22 [History Last Taken 01/09/23] artificial tears(ovqwmpt-alazzafd-zuwnisr) 0.1 %-0.3 %-0.2 % eye drops 1 drp EACH EYE BID 01/30/22 [History Last Taken Unknown] multivitamin 1 tab PO DAILY 01/30/22 [History Last Taken Unknown] ondansetron 4 mg disintegrating tablet 4 mg PO Q6H PRN Nausea 01/30/22 [History Last Taken Unknown] Lactobacillus acidophilus (Acidophilus capsule) 10 mg PO DAILY 05/05/22 [History Last Taken Unknown] fluticasone propionate 50 mcg/actuation nasal spray,suspension (Allergy Relief (fluticasone)) 1 spray intranasal DAILY 05/05/22 [History Last Taken Unknown] guaifenesin 600 mg tablet, extended release 12 hr (Mucinex) 600 mg PO BID 05/05/22 [History Last Taken Unknown] melatonin 5 mg tablet 5 mg PO HS PRN sleep 05/05/22 [History Last Taken Unknown] montelukast 10 mg tablet 10 mg PO QHS 05/05/22 [History Last Taken Unknown] omega 1-mse-fmi-fish oil 60 mg-90 mg-500 mg capsule (Fish Oil) 1 cap PO BID 05/05/22 [History Last Taken 01/09/23] pantoprazole 40 mg tablet,delayed release 40 mg PO DAILY 05/05/22 [History Last Taken Unknown] isosorbide mononitrate 30 mg tablet,extended release 24 hr 30 mg PO DAILY #30 tabs 06/19/22 [Rx Last Taken Unknown] Allergy/AdvReac Type Severity Reaction Status Date / Time doxazosin mesylate Allergy Hives Verified 01/24/23 16:06 [From Cardura] fosinopril sodium Allergy Hives Verified 01/24/23 16:06 [From Monopril] lisinopril Allergy Hives Verified 01/24/23 16:06 morphine Allergy Other Verified 01/24/23 16:06 Family History Father Hypertension Cancer Brother CAD (coronary artery disease) Mother Hypertension Sister Hypertension Son Atrial fibrillation Surgical History history fistulogram (~07/27/17) History of angioplasty History of bilateral hip arthroplasty History of left breast biopsy (~06/2018) 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 S/P peripheral artery angioplasty (~03/2022) Status post right partial knee replacement Social History Smoking Status: Former smoker Tobacco: How many years used: 20 second hand exposure: No alcohol intake: never substance use type: does not use caffeine: No what type of physical activity do you participate in: none ROS ROS ED Constitutional Constitutional ED: Denies chills or fever(s) Eyes Eyes: Denies blurry vision or change in vision ENT ENT ED: Reports sore throat; Denies rhinorrhea Cardiovascular Cardiovascular: Denies chest pain or palpitations Respiratory/Chest Respiratory/Chest: Denies cough or dyspnea Gastrointestinal Gastrointestinal: Denies nausea or vomiting Genitourinary Genitourinary ED: Denies dysuria or hematuria Musculoskeletal Musculoskeletal: Denies back pain or neck pain Integumentary Denies abscess or rash Neurologic Neurologic: Denies headache(s) or weakness Allergic/Immunologic Allergic/Immunologic ED: Denies mouth swelling or urticaria EXAM Physical Exam Const Vital Signs: 01/24/23 16:03 Temperature 97.4 F L Temperature Source Temporal Pulse Rate 95 Respiratory Rate 18 Blood Pressure 139/80 H Blood Pressure Mean 99 Pulse Ox 100 Oxygen Delivery Method Room Air Positive well nourished and well developed General Appearance ED: well developed and NAD HEENT Reports moist mucous membranes Eyes PERRL and EOMs intact bilaterally General Eye ED: Negative for scleral icterus Neck supple and no JVD Resp normal respiratory effort and clear to auscultation bilaterally Cardio regular rate and regular rhythm GI normal to inspection, nondistended, normoactive bowel sounds and non-tender Palpation: soft Extremity normal to inspection General Extremety ED: Yes edema; Negative for tenderness General Extremity: edema bilateral lower extremity Details: moderate Neuro oriented x3, CN's II-XII intact bilaterally and no sensory deficits noted Sensorium / Orientation: alert Motor Exam: strength 5/5 throughout Psych mental status grossly normal Skin no rashes or lesions noted MDM MDM MDM Narrative Medical decision making narrative: Differential diagnosis includes hyperbilirubinemia, hepatitis, cirrhosis, polycythemia vera, and electrolyte abnormality. CBC will be obtained to assess for leukocytosis and anemia. Comprehensive metabolic profile will be obtained to assess for hepatic function, renal function, and electrolyte abnormality. PT with INR and PTT will be obtained to assess for coagulopathy. Lab Data Attestation: I reviewed the patient's lab results. Lab results narrative: CBC was reviewed. There is a mild anemia with a hemoglobin of 10.4 and hematocrit 32.7. Platelets were normal. Comprehensive metabolic profile was reviewed. BUN was 31 and creatinine was 3.75. These are consistent with prior results. The remainder is within normal limits. PT with INR and PTT were reviewed and were essentially within normal limits. Labs: Laboratory Results - last 24 hr 01/24/23 16:53 WBC 9.5 RBC 3.42 L Hgb 10.4 L Hct 32.7 L MCV 95.6 H MCH 30.4 MCHC 31.8 L RDW Std Deviation 48.8 H RDW Coeff of Colleen 14.0 Plt Count 232 MPV 10.8 Immature Gran % (Auto) 0.300 Neut % (Auto) 72.0 H Lymph % (Auto) 14.2 L [place] % (Auto) 7.9 Eos % (Auto) 5.0 Baso % (Auto) 0.6 Absolute Neuts (auto) 6.9 Absolute Lymphs (auto) 1.35 Nucleated RBC % 0 PT 15.2 H INR 1.2 APTT 35.5 Sodium 137 Potassium 3.2 L Chloride 97 L Carbon Dioxide 34.0 H Anion Gap 6 BUN 31 H Creatinine 3.75 H Est GFR (MDRD) Af Amer 20 L Est GFR (MDRD) Non-Af 16 L BUN/Creatinine Ratio 8.3 L Glucose 147 H Calcium 9.6 Total Bilirubin 0.40 AST 12 L ALT 15 L Alkaline Phosphatase 94 Total Protein 7.4 Albumin 3.3 Globulin 4.1 Albumin/Globulin Ratio 0.8 L Treatment and Re-Evaluation :: Patient was given a dose of Benadryl here. Patient was advised of his findings. Patient was instructed to follow-up with his primary care physician in 3 to 5 days for further evaluation. Patient was instructed return if worse in any way. Patient understood and was agreeable with the plan. All questions were answered. Discharge Plan Triage Chief Complaint: Itching ED Provider: Julio Cesar Uriarte Dx/Rx/DC Orders Clinical Impression: Chronic renal failure, stage 3 (moderate), Pruritus Instructions: ED Chronic Kidney Disease (CKD) Prescriptions: No Action acetaminophen 325 mg capsule 650 mg PO Q6H PRN PRN (Reason: pain/fever) loratadine 10 mg tablet 10 mg PO DAILY furosemide 40 mg tablet 40 mg PO BID levothyroxine 50 mcg tablet 50 mcg PO DAILY tamsulosin [Flomax] 0.4 mg capsule 0.4 mg PO QHS buspirone 5 mg tablet 5 mg PO BID omega 4-szw-pwc-fish oil [Fish Oil] 60-90-500 mg capsule 1 cap PO BID Acidophilus Capsule 10 mg PO DAILY pantoprazole 40 mg tablet,delayed release (DR/EC) 40 mg PO DAILY guaifenesin [Mucinex] 600 mg tablet extended release 12hr 600 mg PO BID fluticasone propionate [Allergy Relief (fluticasone)] 50 mcg/actuation spray,s uspension 1 spray intranasal DAILY Rx Instructions: administer into each nostril melatonin 5 mg tablet 5 mg PO HS PRN (Reason: sleep) montelukast 10 mg tablet 10 mg PO QHS finasteride 5 MG tablet 5 mg PO DAILY Patient Comments: PROSTATE aspirin 81 MG tablet,chewable 81 mg PO DAILY@0800 Patient Comments: BLOOD THINNER/HEART nitroglycerin 0.4 MG tablet 0.4 mg SUBLINGUAL Q5M PRN (Reason: Chest Pain) Patient Comments: CHEST PAIN multivitamin [Multi-Daily] Tablet 1 tab PO DAILY acetaminophen 325 mg Tablet 325 mg PO TID ondansetron 4 mg Tablet,Disintegrating 4 mg PO Q6H PRN (Reason: Nausea) artificial tear(iblio-ljf-hyi) 0.1-0.3-0.2 % Drops 1 drp EACH EYE BID clopidogrel 75 MG tablet 75 mg PO DAILY Qty: 90 3RF pravastatin 20 mg tablet 20 mg PO QHS Qty: 90 3RF isosorbide mononitrate 30 mg tablet extended release 24 hr 30 mg PO DAILY Qty: 30 12RF Primary Care Provider: Germania Penn RECREATION PROGRAMMER Referrals: Germania Penn RECREATION PROGRAMMER, RECREATION PROGRAMMER-C [Primary Care Provider] - 3-5 Days Disposition Disposition: Home, Self Care
[2023-01-24] MEDS: DiphenhydrAMINE 50 MG/ML Syringe 25 MG IV (16:49)
[2023-01-24 17:31] LABS: Absolute Lymphocyte Count 1.35 X10^3/uL (0.83-4.51); Absolute Neutrophil Count 6.9 X10^3/uL (2.0-7.7); Basophil# 0.06 X10^3/uL; Basophil% 0.6 % (0-1); Eosinophil# 0.48 X10^3/uL; Hematocrit 32.7 % (40-54); Hemoglobin 10.4 g/dL (13.0-16.5); Lymphocyte # 1.35 X10^3/ul (0.83-4.51); Lymphocyte % 14.2 % (19-41); Mean Corp Hgb Conc 31.8 g/dL (32-36); Mean Corpuscular Hgb 30.4 pg (27.0-32.0); Mean Corpuscular Volume 95.6 fL (80-94); Mean Platelet Vol. 10.8 fl (6.2-12.0); Monocyte# 0.75 X10^3/uL; Monocyte% 7.9 % (0-10); NRBC Flagged by Analyzer 0 % (0-5); Neutrophil # 6.86 X10^3/uL (2.7-7.7); Platelet Count 232 K/mm3 (150-450); RBC Distribution Width SD 48.8 fl (35.1-43.9); Red Blood Count 3.42 M/mm3 (4.6-6.2); White Blood Count 9.5 K/mm3 (4.4-11.0)
[2023-01-24 18:06] LABS: Partial Thromboplast Time 35.5 Seconds (24.1-36.2)
[2023-01-24 18:08] LABS: ALB/GLOB Ratio 0.8 RATIO (0.9-2.4); AST(SGOT) 12 U/L (15-37); Alanine Aminotransfer ALT/SGPT 15 U/L (16-61); Albumin, Serum 3.3 g/dL (3.2-5.0); Alkaline Phosphatase 94 U/L (45-117); Anion Gap 6 (5-15); BUN 31 mg/dL (7-18); BUN/Creat Ratio 8.3 RATIO (10-20); Calcium,Total 9.6 mg/dL (8.5-10.1); Chloride 97 mmol/L (98-107); Creatinine, Serum 3.75 mg/dL (0.70-1.30); EST Glomerular Filtration Rate 16 mL/min (>60); Est Glom Filt Rate - Afr Amer 20 mL/min (>60); Globulin 4.1 g/dL (2.2-4.2); Glucose 147 mg/dL (74-106); Potassium 3.2 mmol/L (3.5-5.1); Protein, Total 7.4 g/dL (6.4-8.2); Sodium Level 137 mmol/L (136-145)
[2023-01-24 18:19] LABS: International Normalized Ratio 1.2; Prothrombin Time (Protime)PT. 15.2 SECONDS (11.7-14.9)
--- NOTE | 2023-01-24 19:59 | CM.ED ---
Social Work SW met with patient and introduced self and role as [facility] SW. Patient agreeable to speak to SW. SW inquired about completion of AD. Patient reports having his LW and HCPOA completed, naming his son Alok as HCPOA. SW encouraged patient to bring a copy of AD to add to his file when he is able; patient agreeable. Cailin SONI, SURAJ
== END 2023-01-24 19:48 | disposition home or self-care (01) ==
PROVIDERS: Emergency Provider Emergency Medicine; PCP Nurse Practitioner Adult Health; Visit Provider Emergency Medicine
DX: L29.9 Pruritus, unspecified (principal); Z99.2 Dependence on renal dialysis; I13.0 Hypertensive heart and chronic kidney disease with heart failure and stage 1 through stage 4 chronic kidney disease, or unspecified chronic kidney disease; I50.32 Chronic diastolic (congestive) heart failure; N18.30 Chronic kidney disease, stage 3 unspecified; E78.5 Hyperlipidemia, unspecified; Z87.891 Personal history of nicotine dependence; I25.10 Atherosclerotic heart disease of native coronary artery without angina pectoris; Z79.82 Long term (current) use of aspirin; N40.0 Benign prostatic hyperplasia without lower urinary tract symptoms; Z79.02 Long term (current) use of antithrombotics/antiplatelets; Z79.899 Other long term (current) drug therapy; K21.9 Gastro-esophageal reflux disease without esophagitis; Z95.820 Peripheral vascular angioplasty status with implants and grafts; Z96.643 Presence of artificial hip joint, bilateral; Z96.651 Presence of right artificial knee joint
CPT/HCPCS: 80053; 85025; 85610; 85730; 96374; 99282; A4216

== ENCOUNTER 2023-04-29 13:05 | Emergency (ER) | payer MEDICARE, BC, MEDICAID, SELFPAY ==
[2023-04-29 13:07] VITALS: BP 151/87; PULSE 93; RESP 18; TEMP 35.7; O2SAT 100
[2023-04-29 13:12] VITALS: BMI 39.2
--- NOTE | 2023-04-29 13:31 | EX.ED.DYSGE1 ---
HPI History of Present Illness Chief Complaint: Abscess Informant: patient and family Narrative Narrative: Patient presents with a red swollen area on the left arm. He states has been there for about a week. No trauma. He was able to squeeze some material out of it earlier. He does have a dialysis fistula in that forearm but is not located in the area of swelling. He does not know if this is Decadron/foreign material or [place] vein and artery. He denies fevers chills nausea or vomiting. PFSH [facility] Medical History Abnormal electrocardiogram Abnormal nuclear stress test Acute renal insufficiency Angina pectoris Arthritis Atherosclerosis of [place] coronary artery of [place] heart without angina pectoris Benign essential hypertension Benign prostatic hypertrophy without lower urinary tract symptoms BMI 40.0-44.9, adult Breast mass, left Chest pain Chest pain on exertion Chronic kidney disease Chronic renal failure, stage 3 (moderate) Coronary artery disease Diastolic heart failure Essential hypertension Fatigue Gastroesophageal reflux disease Hyperlipidemia Hypertension Hypokalemia Long-term use of high-risk medication Melanotic stools Normochromic normocytic anemia ALY (obstructive sleep apnea) Pulmonary hypertension Shortness of breath Sinus bradycardia Skin lesion Home Medications aspirin 81 mg chewable tablet 81 mg PO DAILY@0800 04/01/14 [History Last Taken 02/06/22] finasteride 5 mg tablet 5 mg PO DAILY 04/01/14 [History Last Taken 10/02/18] nitroglycerin 0.4 mg sublingual tablet 0.4 mg sublingual Q5M PRN Chest Pain 02/01/15 [History Last Taken 02/27/15] clopidogrel 75 mg tablet 75 mg PO DAILY #90 tabs 06/12/17 [Rx Last Taken 01/09/23] pravastatin 20 mg tablet 20 mg PO QHS #90 tabs 08/08/17 [Rx Last Taken 12/04/17] acetaminophen 325 mg capsule 650 mg PO Q6H PRN PRN pain/fever 02/20/18 [History Last Taken Unknown] furosemide 40 mg tablet 40 mg PO BID 05/02/18 [History Last Taken 10/02/18] levothyroxine 50 mcg tablet 50 mcg PO DAILY 05/02/18 [History Last Taken 02/23/20] loratadine 10 mg tablet 10 mg PO DAILY 10/03/18 [History Last Taken Unknown] tamsulosin 0.4 mg capsule (Flomax) 0.4 mg PO QHS 04/02/19 [History Last Taken Unknown] buspirone 5 mg tablet 5 mg PO BID 12/25/19 [History Last Taken 01/09/23] acetaminophen 325 mg tablet 325 mg PO TID 01/30/22 [History Last Taken 01/09/23] artificial tears([id number]) 0.1 %-0.3 %-0.2 % eye drops 1 drp EACH EYE BID 01/30/22 [History Last Taken Unknown] multivitamin 1 tab PO DAILY 01/30/22 [History Last Taken Unknown] ondansetron 4 mg disintegrating tablet 4 mg PO Q6H PRN Nausea 01/30/22 [History Last Taken Unknown] Lactobacillus acidophilus (Acidophilus capsule) 10 mg PO DAILY 05/05/22 [History Last Taken Unknown] fluticasone propionate 50 mcg/actuation nasal spray,suspension (Allergy Relief (fluticasone)) 1 spray intranasal DAILY 05/05/22 [History Last Taken Unknown] guaifenesin 600 mg tablet, extended release 12 hr (Mucinex) 600 mg PO BID 05/05/22 [History Last Taken Unknown] melatonin 5 mg tablet 5 mg PO HS PRN sleep 05/05/22 [History Last Taken Unknown] montelukast 10 mg tablet 10 mg PO QHS 05/05/22 [History Last Taken Unknown] omega 6-uwf-plp-fish oil 60 mg-90 mg-500 mg capsule (Fish Oil) 1 cap PO BID 05/05/22 [History Last Taken 01/09/23] pantoprazole 40 mg tablet,delayed release 40 mg PO DAILY 05/05/22 [History Last Taken Unknown] isosorbide mononitrate 30 mg tablet,extended release 24 hr 30 mg PO DAILY #30 tabs 06/19/22 [Rx Last Taken Unknown] doxycycline monohydrate 100 mg capsule 100 mg PO BID #20 CAPSULES 04/29/23 [Rx Last Taken Unknown] Allergy/AdvReac Type Severity Reaction Status Date / Time doxazosin mesylate Allergy Hives Verified 04/29/23 13:06 [From Cardura] fosinopril sodium Allergy Hives Verified 04/29/23 13:06 [From Monopril] lisinopril Allergy Hives Verified 04/29/23 13:06 morphine Allergy Other Verified 04/29/23 13:06 Family History Father Hypertension Cancer Brother CAD (coronary artery disease) Mother Hypertension Sister Hypertension Son Atrial fibrillation Surgical History history fistulogram (~07/27/17) History of angioplasty History of bilateral hip arthroplasty History of left breast biopsy (~06/2018) 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 S/P peripheral artery angioplasty (~03/2022) Status post right partial knee replacement Social History Smoking Status: Former smoker Tobacco: How many years used: 20 second hand exposure: No alcohol intake: never substance use type: does not use caffeine: No what type of physical activity do you participate in: none ROS ROS ED Constitutional Constitutional ED: Denies chills, fever(s) or subjective Cardiovascular Cardiovascular: Denies chest pain or palpitations Respiratory/Chest Respiratory/Chest: Denies cough or dyspnea Gastrointestinal Gastrointestinal: Denies nausea or vomiting Musculoskeletal Musculoskeletal: Denies myalgias Integumentary Reports abscess Neurologic Neurologic: Denies paresthesias or weakness Hematologic/Lymphatic Hematologic/Lymphatic: Denies easy bleeding or easy bruising EXAM Physical Exam Narrative Exam Narrative: General: Patient awake alert no acute distress. HEENT shows no trauma Cardiorespiratory shows easy unlabored breathing. He is from side saturations are normal percent on room air. Heart rate is normal. Abdomen is obese but otherwise benign. Extremities: He has a palpable fistula unfurl on the left forearm. This is more on the volar surface. On the more dorsal surface just distal to the elbow overlying his ulna, there is a area that swollen about 1 x 2 cm. Has a hole in the middle that look like it drained. There is some mild erythema. It is not fluctuant. Const Vital Signs: 04/29/23 13:07 Temperature 96.3 F L Temperature Source Temporal Pulse Rate 93 Respiratory Rate 18 Blood Pressure 151/87 H Blood Pressure Mean 108 Pulse Ox 100 MDM MDM MDM Narrative Medical decision making narrative: I talked with patient that it looks like he has drained this. We could consider anesthetizing it and incising to drain it. He states he is not can have somebody cut on his arm. I think it is reasonable we try him on antibiotics orally as this has already drained. If the swelling or redness gets worse or starts going near his dialysis fistula we will need him to return. I explained that it may end up needing incision and drainage in the future. Next dialysis is Sunday. Discharge Plan Triage Chief Complaint: Abscess ED Provider: Jose M Gasca Dx/Rx/DC Orders Clinical Impression: Abscess of left forearm Instructions: ED Abscess Antibiotic Treatment Only Prescriptions: New doxycycline monohydrate 100 mg capsule 100 mg PO BID Qty: 20 0RF No Action acetaminophen 325 mg capsule 650 mg PO Q6H PRN PRN (Reason: pain/fever) loratadine 10 mg tablet 10 mg PO DAILY furosemide 40 mg tablet 40 mg PO BID levothyroxine 50 mcg tablet 50 mcg PO DAILY tamsulosin [Flomax] 0.4 mg capsule 0.4 mg PO QHS buspirone 5 mg tablet 5 mg PO BID omega 4-cut-dyx-fish oil [Fish Oil] 60-90-500 mg capsule 1 cap PO BID Acidophilus Capsule 10 mg PO DAILY pantoprazole 40 mg tablet,delayed release (DR/EC) 40 mg PO DAILY guaifenesin [Mucinex] 600 mg tablet extended release 12hr 600 mg PO BID fluticasone propionate [Allergy Relief (fluticasone)] 50 mcg/actuation spray,suspension 1 spray intranasal DAILY Rx Instructions: administer into each nostril melatonin 5 mg tablet 5 mg PO HS PRN (Reason: sleep) montelukast 10 mg tablet 10 mg PO QHS finasteride 5 MG tablet 5 mg PO DAILY Patient Comments: PROSTATE aspirin 81 MG tablet,chewable 81 mg PO DAILY@0800 Patient Comments: BLOOD THINNER/HEART nitroglycerin 0.4 MG tablet 0.4 mg SUBLINGUAL Q5M PRN (Reason: Chest Pain) Patient Comments: CHEST PAIN multivitamin [Multi-Daily] Tablet 1 tab PO DAILY acetaminophen 325 mg Tablet 325 mg PO TID ondansetron 4 mg Tablet,Disintegrating 4 mg PO Q6H PRN (Reason: Nausea) artificial tear([id number]) 0.1-0.3-0.2 % Drops 1 drp EACH EYE BID clopidogrel 75 MG tablet 75 mg PO DAILY Qty: 90 3RF pravastatin 20 mg tablet 20 mg PO QHS Qty: 90 3RF isosorbide mononitrate 30 mg tablet extended release 24 hr 30 mg PO DAILY Qty: 30 12RF Primary Care Provider: Germania Penn MEDIA CONSULTANT Referrals: Germania Penn MEDIA CONSULTANT, MEDIA CONSULTANT-C [Primary Care Provider] - 3-5 Days if not improving Disposition Disposition: Home, Self Care
[2023-04-29] MEDS: Doxycycline 100 MG CAPSULE PO (13:45)
--- OUTSIDE RECORDS SUMMARY | 2023-04-29 13:45 | XMS RPT_ITS | CCD ---
Author Name Unknown Address [address] [place] [address] Organization [facility] Care Team Providers Care Metal Sorter Name Role Phone ARABELLA VILLARREAL MD Admitting Unavailable ARABELLA VILLARREAL MD Attending Unavailable ARABELLA VILLARREAL MD Primary Care Unavailable CHEMO BAUTISTA MD Admitting Unavailable CHEMO BAUTISTA MD Attending Unavailable CHEMO BAUTISTA MD Primary Care Unavailable AMADA ZIMMER PA-C Admitting Unavailable MESHA, AMADA GORMAN Attending Unavailable AMADA ZIMMER PA-C Primary Care Unavailable ARABELLA VILLARREAL MD Admitting Unavailable ARABELLA VILLARREAL MD Attending Unavailable ARABELLA VILLARREAL MD Primary Care Unavailable SMITH LOVE DO Admitting Unavailable SMITH LOVE DO Attending Unavailable SMITH LOVE DO Primary Care Unavailable DR NICK DAUGHERTY Admitting Unavailable WILLOW, DR NICK Livingston Attending Unavailable WILLOW, DR NICK Livingsotn Primary Care Unavailable LAWRENCE, DR RADHA Trujillo Admitting Unavaila ble LAWRENCE, DR RADHA Trujillo Attending Unavaila ble LAWRENCE, DR RADHA Trujillo Primary Care Unavaila RAFI Mcmillan MD Admitting Unavailable RAFI BUCK MD Attending Unavailable RFAI BUCK MD Primary Care Unavailable LAWRENCE, DR RADHA Trujillo Admitting Unavaila ble LAWRENCE, DR RADHA Trujillo Attending Unavaila ble LAWRENCE, DR RADHA Trujillo Primary Care Unavaila ble Unavailable Primary Care Provider Unavailottoniel e Allergies Allergy Classification Reported Allergen(s) Allergy Type Date of Onset Reaction(s) Facility (1 source) Doxazosin Drug Allergy [facility] Repository (2 sources) Lisinopril; Translations: [LISINOPRIL] Drug Allergy 0 [facility] Repository (2 sources) Morphine; Translations: [MORPHINE] Drug Allergy 0 [facility] Repository (1 source) sun exposure Drug allergy (disorder) [facility] Repository (2 sources) Doxazosin; Translations: [DOXAZOSIN] Drug Allergy 0 Unknown [facility] (2 sources) Fosinopril; Translations: [FOSINOPRIL] Drug Allergy 0 Unknown [facility] (1 source) Lisinopril Drug Allergy 0 Unknown [facility] (1 source) Morphine Drug Allergy 0 Mental Status Change [facility] Medications Completed/Discontinued Medications Medication Drug Class(es) Dates Sig (Normalized) Sig (Original) acetaminophen 500 mg oral tablet (1 source) Start: 02-02-2020 take 2 tablets by mouth every twenty-four hours as needed acetaminophen (TYLENOL) 500 mg tablet Take 2 tablets by mouth at bedtime as needed for Pain. 0 02/02/2020 Active Problems Active Problems Problem Classification Problem Date Documented Date Episodic/Chronic Anxiety disorders (1 source) Anxiety disorder; Translations: [Anxiety disorder, unspecified] Onset: 02-02-2020 02-02-2020 Chronic Chronic kidney disease (5 sources) Chronic kidney disease, stage 5; Translations: [Chronic kidney disease, unspecified] Onset: 02-02-2020 02-02-2020 Chronic Conduction disorders (2 sources) Left bundle branch block; Translations: [Left bundle-branch block, unspecified] Onset: 02-02-2020 02-02-2020 Chronic Congestive heart failure; nonhypertensive (1 source) Congestive heart failure; Translations: [Unspecified diastolic (congestive) heart failure] Onset: 02-02-2020 02-02-2020 Chronic Coronary atherosclerosis and other heart disease (1 source) Angina pectoris; Translations: [Angina pectoris, unspecified] Onset: 02-02-2020 02-02-2020 Chronic Delirium, dementia, and amnestic and other cognitive disorders (2 sources) 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; Translations: [Alzheimer's disease, unspecified] Onset: 02-02-2020 02-02-2020 Chronic Disorders of lipid metabolism (1 source) Hyperlipidemia; Translations: [Hyperlipidemia, unspecified] Onset: 02-02-2020 02-02-2020 Chronic Esophageal disorders (1 source) Gastroesophageal reflux disease without esophagitis; Translations: [Gastro-esophageal reflux disease without esophagitis] Onset: 02-02-2020 02-02-2020 Chronic Essential hypertension (1 source) Essential hypertension; Translations: [Essential (primary) hypertension] Onset: 02-02-2020 02-02-2020 Chronic Gout and other crystal arthropathies (1 source) Gout; Translations: [Gout, unspecified] Onset: 02-02-2020 02-02-2020 Chronic Hyperplasia of prostate (1 source) Benign prostatic hypertrophy with outflow obstruction; Translations: [Benign prostatic hyperplasia with lower urinary tract symptoms] Onset: 02-02-2020 02-02-2020 Chronic Hypertension with complications and secondary hypertension (1 source) Hypertensive heart and chronic kidney disease without heart failure, with stage 5 chronic kidney disease, or end stage renal disease; Translations: [Hypertensive heart and chronic kidney disease without heart failure, with stage 5 chronic kidney disease, or end stage renal disease] Onset: 10-27-2021 Chronic Miscellaneous mental health disorders (1 source) Primary insomnia; Translations: [Primary insomnia] Onset: 02-02-2020 02-02-2020 Chronic Mood disorders (1 source) Recurrent major depressive episodes, moderate ; Translations: [Major depressive disorder, recurrent, moderate] Onset: 02-02-2020 02-02-2020 Chronic Nutritional deficiencies (1 source) Vitamin D deficiency; Translations: [Vitamin D deficiency, unspecified] Onset: 02-02-2020 02-02-2020 Chronic Osteoarthritis (1 source) Osteoarthritis; Translations: [Unspecified osteoarthritis, unspecified site] Onset: 02-02-2020 02-02-2020 Chronic Other circulatory disease (1 source) Acquired arteriovenous fistula; Translations: [Arteriovenous fistula, acquired] Onset: 02-02-2020 02-02-2020 Chronic Other hereditary and degenerative nervous system conditions (1 source) Impaired cognition; Translations: [Mild cognitive impairment, so stated] Onset: 02-02-2020 02-02-2020 Chronic Other lower respiratory disease (2 sources) Dyspnea; Translations: [Shortness of breath] Onset: 02-02-2020 Episodic Other nervous system disorders (1 source) Difficulty walking; Translations: [Difficulty in walking, not elsewhere classified] Onset: 02-02-2020 02-02-2020 Chronic Other non-traumatic joint disorders (1 source) Bone spur of vertebra; Translations: [Osteophyte, vertebrae] Onset: 02-02-2020 02-02-2020 Chronic Other nutritional; endocrine; and metabolic disorders (1 source) Hypomagnesemia; Translations: [Hypomagnesemia] Onset: 09-01-2021 Chronic Other nutritional; endocrine; and metabolic disorders (1 source) Morbid obesity; Translations: [Morbid (severe) obesity due to excess calories] Onset: 02-02-2020 02-02-2020 Chronic Other nutritional; endocrine; and metabolic disorders (1 source) Hypercalcemia; Translations: [Hypercalcemia] Onset: 02-02-2020 02-02-2020 Chronic Peripheral and visceral atherosclerosis (1 source) Peripheral vascular disease; Translations: [Peripheral vascular disease, unspecified] Onset: 02-02-2020 02-02-2020 Chronic Pulmonary heart disease (1 source) Idiopathic pulmonary arterial hypertension ; Translations: [Primary pulmonary hypertension] Onset: 02-02-2020 02-02-2020 Chronic Residual codes; unclassified (1 source) Obstructive sleep apnea syndrome; Translations: [Obstructive sleep apnea (adult) (pediatric)] Onset: 02-02-2020 02-02-2020 Chronic Spondylosis; intervertebral disc disorders; other back problems (2 sources) Degeneration of cervical intervertebral disc; Translations: [Other cervical disc degeneration, unspecified cervical region] Onset: 02-02-2020 02-02-2020 Chronic Thyroid disorders (2 sources) Hypothyroidism, unspecified; Translations: [Hypothyroidism] Onset: 02-02-2020 02-02-2020 Chronic Past or Other Problems Problem Classification Problem Date Documented Da te Episodic/Chronic Cardiac dysrhythmias (1 source) Bradycardia; Translations: [Bradycardia, unspecified] Onset: 02-02-2020 02-02-2020 Episodic Complication of device; implant or graft (1 source) Mechanical complication of dialysis catheter; Translations: [Other complication of vascular dialysis catheter, sequela] Onset: 02-02-2020 02-02-2020 Episodic Fluid and electrolyte disorders (5 sources) Hypokalemia; Translations: [Dehydration] Onset: 08-28-2021 Episodic Intestinal infection (1 source) Viral intestinal infection, unspecified; Translations: [Viral intestinal infection, unspecified] Onset: 08-28-2021 Episodic Nonmalignant breast conditions (1 source) Lump in left breast; Translations: [Unspecified lump in the left breast, unspecified quadrant] Onset: 02-02-2020 02-02-2020 Episodic Other aftercare (1 source) Patient encounter status; Translations: [Encounter for adjustment and management of vascular access device] Onset: 02-02-2020 02-02-2020 Episodic Other aftercare (1 source) Long-term current use of anticoagulant; Translations: [FDC (current) use of anticoagulants] Onset: 02-02-2020 02-02-2020 Episodic Other connective tissue disease (1 source) Falls; Translations: [Repeated falls] Onset: 02-02-2020 02-02-2020 Episodic Other gastrointestinal disorders (3 sources) Diarrhea, unspecified; Translations: [Diarrhea, unspecified] Onset: 08-26-2021 Episodic Other gastrointestinal disorders (1 source) Oral phase dysphagia; Translations: [Dysphagia, oral phase] Onset: 02-02-2020 02-02-2020 Episodic Other gastrointestinal disorders (1 source) Constipation; Translations: [Other constipation] Onset: 02-02-2020 02-02-2020 Episodic Other nervous system disorders (1 source) Abnormal gait; Translations: [Unspecified abnormalities of gait and mobility] Onset: 02-02-2020 02-02-2020 Episodic Residual codes; unclassified (1 source) Edema; Translations: [Edema, unspecified] Onset: 02-02-2020 02-02-2020 Episodic Spondylosis; intervertebral disc disorders; other back problems (2 sources) Ankylosis of lumbosacral joint; Translations: [Fusion of spine, lumbosacral region] Onset: 02-02-2020 02-02-2020 Episodic Results Test Name Value Interpretation Reference Range Facil ity Vital Signs Date Time Vital Sign Value Performing Clinician Genoveva smith 09-03-2022 08:14-0400 Body temperature 98.6 [degF] Nicolas Mayorga APRN.CNP Work Phone: [facility] 09-03-2022 08:14-0400 Body weight 112.49 kg Nicolas Mayorga APRN.CNP Work Phone: [facility] 09-03-2022 08:14-0400 Diastolic blood pressure 100 mm[Hg] Nicolas Mayorga APRN.CNP Work Phone: [facility] 09-03-2022 08:14-0400 Heart rate 102 /min Nicolas Mayorga APRN.CNP Work Phone: [facility] 09-03-2022 08:14-0400 Respiratory rate 18 /min Nicolas Mayorga APRN.CNP Work Phone: [facility] 09-03-2022 08:14-0400 SaO2% (BldA) [Mass fraction] 96 % Nicolas Mayorga APRN.CNP Work Phone: [facility] 09-03-2022 08:14-0400 Systolic blood pressure 168 mm[Hg] Nicolas Mayorga APRN.BULLARD MACHINE OPERATOR Work Phone: [facility] Encounters Encounter Date Encounter Type Care Provider Facility Start: 09-03-2022 End: 09-03-2022 ambulatory Facility:[facility] Start: 09-03-2022 End: 09-03-2022 Patient encounter procedure Nicolas Mayorga APRN.CNP Work Phone: [facility] Plan of Treatment Date Care Activity Detail Author Start: 12-29-2022 Influenza vaccination INFLUENZ A (Season Ended) [facility] Start: 04-30-2022 ADVANCE DIRECTIVE DISCUSSION ADVANCE DIRECTIVE DISCUSSION [facility] Start: 04-28-2021 COVID-19 VACCINE (4 - Booster for Pfizer series) COVID-19 VACCINE (4 - Booster for Pfizer series) [facility] Start: 03-12-2018 DIABETES SCREEN DIABETES SCREEN [facility] Start: 1957 SHINGRIX VACCINE (1 of 2) SHINGRIX VACCINE (1 of 2) [facility] Start: 1957 Urine microalbumin profile DTAP,TDAP,TD (1 - Tdap) [facility] Start: 1944 PNEUMOCOCCAL: 65+ (1 - PCV) PNEUMOCOCCAL: 65+ (1 - PCV) [facility] Radiologic exam ches t 2 views XR CHEST 2V FRONTAL/LAT Radiology STAT SOB (shortness of breath) Ordered: 09/03/2022 [facility] Work Phone: Payers Date Payer Category Payer Medicaid [facility] MEDICAID MYC ARE [facility] MEDICAID [id number] 2022-Present [phone] [address] [place] [address] Medicaid [id number] 2022 Medicare UHC MEDICARE MYC ARE UHC MEDICARE [id number] 2022-Present [phone] [address] [place] [address] Medicare [id number] 2022 Medicare [id number] 1938 Unknown [id number] 1938 Unknown [id number] 1938 Unknown [id number] 1938 Unknown [id number] 1938 Unknown [id number] 1938 Unknown [id number] 1938 Unknown [id number] 1938 Unknown [id number] 1938 Unknown [id number] Medicaid [id number] Medicaid [id number] Medicare [id number] Social History Date Type Detail Facility Start: 09-03-2022 [facility] Work Phone: End: 04-30-1987 History of tobacco use Current smoker [facility] Work Phone: End: 04-30-1987 History of tobacco use Cigarette Smoker [facility] Work Phone: Start: 09-03-2022 Tobacco use and exposure Former smokeless tobacco user [facility] Work Phone: End: 04-30-1987 History of tobacco use User of smokeless tobacco [facility] Work Phone: Start: 1940 Sex Assigned At Not on file C [facility] Progress note 09-03-2022 Note Date & Type Note Facility 09-03-2022 Note HNO ID: [id number] Author: Nicolas Mayorga APRN.BULLARD MACHINE OPERATOR Service: ? Author Type: Nurse Practitioner Type: Progress Notes Filed: 09/03/2022 8:53 AM Note Text: Subjective HPI HPI Arianna Antonio is a 82 year old male who presents today for CC of intermittent sob, comes and goes for past week, last episode was while sleeping last night. Assisted living facility where patient lives wants chest xray. Patient denies uri symptoms, weight gain, cp/sob. Dialysis patient. Patient reports feeling well at time of exam/no symptoms. .Patient presents with: Breathing Problem: sob x 1 week No past medical history on file. No past surgical history on file. ALLERGIES Cardura [Doxazosin], Lisinopril, Monopril [Fosinopril], and Morphine MEDICATIONS acetaminophen (TYLENOL) 500 mg tablet Take 2 tablets by mouth at bedtime as needed for Pain. allopurinol (ZYLOPRIM) 100 mg tablet Take 1 tablet by mouth once daily. For gout. Propylene Glycol-Glycerin (ARTIFICIAL TEARS,GLYCERIN-PEG,) 1-0.3 % drop Use 1 Drop in both eyes twice daily. aspirin, enteric coated (ASPIRIN, ENTERIC COATED) 81 mg EC tablet Take 1 tablet by mouth once daily. bisacodyl (DULCOLAX) 10 mg supp 1 Suppository by RECTAL route once daily as needed. busPIRone (BUSPAR) 5 mg tablet Take 1 tablet by mouth once daily. citalopram (CELEXA) 20 mg tablet Take 1 tablet by mouth once daily. docusate sodium (COLACE) 100 mg capsule Take 1 capsule by mouth once daily. mineral oil (FLEET MINERAL OIL ENEMA) enema 118 mL by RECTAL route one time only for 1 dose. finasteride (PROSCAR) 5 mg tablet Take 1 tablet by mouth once daily. tamsulosin (FLOMAX) 0.4 mg Take 1 capsule by mouth daily at bedtime. furosemide (LASIX) 40 mg tablet Take 1 tablet by mouth twice daily. levothyroxine (SYNTHROID) 50 mcg tablet Take 1 tablet by mouth once daily. Take on empty stomach. For Thyroid loratadine (CLARITIN) 10 mg tablet Take 1 tablet by mouth once daily. melatonin 3 mg capsules Take 1 capsule by mouth at bedtime as needed. magnesium hydroxide (MOM) 400 mg/5 mL suspension Take 30 mL by mouth once daily as needed for Constipation. polyethylene glycol 3350 17 gram/dose powder 17 gram in morning for constipation nitroglycerin sublingual (NITROQUICK) 0.4 mg SL tablet Dissolve 1 tablet under the tongue every 5 minutes as needed for Chest Pain. clopidogrel (PLAVIX) 75 mg tablet Take 1 tablet by mouth once daily. sevelamer carbonate (RENVELA) 800 mg tablet Take 3 tablets by mouth three times daily with meals. sodium chloride (SALINE NASAL) 0.65 % nasal spray Use 1 [place] in the nose every 2 hours as needed. terazosin (HYTRIN) 5 mg capsule Take 1 capsule by mouth daily at bedtime. calcium carbonate (TUMS) 500 mg chew Take 2 tablets by mouth every 6 hours as needed. No family history on file. Social History Tobacco Use Smoking status: Former Types: Cigarettes Quit date: 1987 Years since quittin.3 Smokeless tobacco: Former Quit date: 1987 Vaping Use Vaping Use: Never used Review of Systems Constitutional: Negative for fever. HENT: Negative for congestion, ear pain, nosebleeds and sore throat. Respiratory: Negative for cough, shortness of breath and wheezing. Musculoskeletal: Negative for neck pain. Objective Blood pressure 168/100, pulse 102, temperature 37 ?C (98.6 ?F), resp. rate 18, weight 112.5 kg (248 lb), SpO2 96 %. Patient reports this bp is normal. HR recheck 92 manual by provider. Physical Exam Constitutional: General: He is not in acute distress. Appearance: He is not toxic-appearing or diaphoretic. HENT: Head: Normocephalic and atraumatic. Cardiovascular: Rate and Rhythm: Regular rhythm. Tachycardia present. Heart sounds: Normal heart sounds, S1 normal and S2 normal. Pulmonary: Effort: Pulmonary effort is normal. Breath sounds: Normal breath sounds. Neurological: Mental Status: He is alert and oriented to person, place, and time. Gait: Gait is intact. ASSESSMENT/PLAN: 1. SOB (shortness of breath) - ICD9: 786.05, ICD10: R06.02 -patient has no symptoms at time of exam/reports feeling well. -I discussed limitations of express care and concerns with the nature of his symptoms and lack of uri symptoms. -I will order chest xray -if any symptoms return go to ER promptly -Patient and son agree to plan - XR CHEST 2V FRONTAL/LAT Nicolas Mayorga APRN.EMILIA [facility] History of Present illness Narrative 09-03-2022 Nicolas Mayorga APRN.EMILIA - 09/03/2022 8:37 AM EDT Note Date & Type Note Facility 09-03-2022 History of Presen t illness Narrative Subjective HPI HPI Arianna Antonio is a 82 year old male who presents today for CC of intermittent sob, comes and goes for past week, last episode was while sleeping last night. Assisted living facility where patient lives wants chest xray. Patient denies uri symptoms, weight gain, cp/sob. Dialysis patient. Patient reports feeling well at time of exam/no symptoms. .Patient presents with: Breathing Problem: sob x 1 week No past medical history on file. No past surgical history on file. ALLERGIES Cardura [Doxazosin], Lisinopril, Monopril [Fosinopril], and Morphine MEDICATIONS acetaminophen (TYLENOL) 500 mg tablet Take 2 tablets by mouth at bedtime as needed for Pain. allopurinol (ZYLOPRIM) 100 mg tablet Take 1 tablet by mouth once daily. For gout. Propylene Glycol-Glycerin (ARTIFICIAL TEARS,GLYCERIN-PEG,) 1-0.3 % drop Use 1 Drop in both eyes twice daily. aspirin, enteric coated (ASPIRIN, ENTERIC COATED) 81 mg EC tablet Take 1 tablet by mouth once daily. bisacodyl (DULCOLAX) 10 mg supp 1 Suppository by RECTAL route once daily as needed. busPIRone (BUSPAR) 5 mg tablet Take 1 tablet by mouth once daily. citalopram (CELEXA) 20 mg tablet Take 1 tablet by mouth once daily. docusate sodium (COLACE) 100 mg capsule Take 1 capsule by mouth once daily. mineral oil (FLEET MINERAL OIL ENEMA) enema 118 mL by RECTAL route one time only for 1 dose. finasteride (PROSCAR) 5 mg tablet Take 1 tablet by mouth once daily. tamsulosin (FLOMAX) 0.4 mg Take 1 capsule by mouth daily at bedtime. furosemide (LASIX) 40 mg tablet Take 1 tablet by mouth twice daily. levothyroxine (SYNTHROID) 50 mcg tablet Take 1 tablet by mouth once daily. Take on empty stomach. For Thyroid loratadine (CLARITIN) 10 mg tablet Take 1 tablet by mouth once daily. melatonin 3 mg capsules Take 1 capsule by mouth at bedtime as needed. magnesium hydroxide (MOM) 400 mg/5 mL suspension Take 30 mL by mouth once daily as needed for Constipation. polyethylene glycol 3350 17 gram/dose powder 17 gram in morning for constipation nitroglycerin sublingual (NITROQUICK) 0.4 mg SL tablet Dissolve 1 tablet under the tongue every 5 minutes as needed for Chest Pain. clopidogrel (PLAVIX) 75 mg tablet Take 1 tablet by mouth once daily. sevelamer carbonate (RENVELA) 800 mg tablet Take 3 tablets by mouth three times daily with meals. sodium chloride (SALINE NASAL) 0.65 % nasal spray Use 1 [place] in the nose every 2 hours as needed. terazosin (HYTRIN) 5 mg capsule Take 1 capsule by mouth daily at bedtime. calcium carbonate (TUMS) 500 mg chew Take 2 tablets by mouth every 6 hours as needed. No family history on file. Social History Tobacco Use Smoking status: Former Types: Cigarettes Quit date: 1987 Years since quittin.3 Smokeless tobacco: Former Quit date: 1987 Vaping Use Vaping Use: Never used Review of Systems Constitutional: Negative for fever. HENT: Negative for congestion, ear pain, nosebleeds and sore throat. Respiratory: Negative for cough, shortness of breath and wheezing. Musculoskeletal: Negative for neck pain. Objective Blood pressure 168/100, pulse 102, temperature 37 C (98.6 F), resp. rate 18, weight 112.5 kg (248 lb), SpO2 96 %. Patient reports this bp is normal. HR recheck 92 manual by provider. Physical Exam Constitutional: General: He is not in acute distress. Appearance: He is not toxic-appearing or diaphoretic. HENT: Head: Normocephalic and atraumatic. Cardiovascular: Rate and Rhythm: Regular rhythm. Tachycardia present. Heart sounds: Normal heart sounds, S1 normal and S2 normal. Pulmonary: Effort: Pulmonary effort is normal. Breath sounds: Normal breath sounds. Neurological: Mental Status: He is alert and oriented to person, place, and time. Gait: Gait is intact. ASSESSMENT/PLAN: 1. SOB (shortness of breath) - ICD9: 786.05, ICD10: R06.02 -patient has no symptoms at time of exam/reports feeling well. -I discussed limitations of express care and concerns with the nature of his symptoms and lack of uri symptoms. -I will order chest xray -if any symptoms return go to ER promptly -Patient and son agree to plan - XR CHEST 2V FRONTAL/LAT Nicolas Mayorga APRN.EMILIA documented in this encounter [facility] Evaluation note Note Date & Type Note Facility documented in this encounter [facility] Summary Purpose Family History No Family History Records FoundNo Family History Records Found Advance Directives No Advanced Directives Records FoundNo Advanced Directives Records Found Additional Source Comments (unrecognized sect ion and content) No Status Records FoundNo Status Records Found INFORMATION SOURCE (unrecogn ized section and content) DATE CREATED AUTHOR AUTHOR'S ORGANIZ ATION 09/04/2022 [facility] Source Comments (unrecognize d section and content) In the event this informatio n is protected by the Federal Confidentiality of Alcohol and Drug Abuse Patient Records regulations: The Federal rules restrict any use of the information to criminally investigate or prosecute any alcohol or drug abuse patient.[facility] Reason for Visit (unrecogniz ed section and content) FOR RECORDS PERTAINING TO PATIENTS WHO ARE OR HAVE BEEN ENROLLED IN A CHEMICAL DEPENDENCY/SUBSTANCEABUSE PROGRAM, SOME INFORMATION MAY BE OMITTED. This clinical summary was aggregated from multiple sources. Caution should be exercised in using it in the provision of clinical care. This summary normalizes information from multiple sources, and as a consequence, information in this document may materially change the coding, format and clinical context of patient data. In addition, data may be omitted in some cases. CLINICAL DECISIONS SHOULD BE BASED ON THE PRIMARY CLINICAL RECORDS. [facility]. provides no warranty or guarantee of the accuracy or completeness of information in this document.
== END 2023-04-29 13:48 | disposition home or self-care (01) ==
LOC: ED 13:42
PROVIDERS: Emergency Provider Emergency Medicine; PCP Nurse Practitioner Adult Health; Visit Provider Emergency Medicine
DX: L02.414 Cutaneous abscess of left upper limb (principal); Z99.2 Dependence on renal dialysis; I12.0 Hypertensive chronic kidney disease with stage 5 chronic kidney disease or end stage renal disease; N18.6 End stage renal disease; Z87.891 Personal history of nicotine dependence; I25.10 Atherosclerotic heart disease of native coronary artery without angina pectoris; E78.5 Hyperlipidemia, unspecified; Z79.82 Long term (current) use of aspirin; N40.0 Benign prostatic hyperplasia without lower urinary tract symptoms; Z79.899 Other long term (current) drug therapy; Z79.02 Long term (current) use of antithrombotics/antiplatelets; K21.9 Gastro-esophageal reflux disease without esophagitis; Z98.61 Coronary angioplasty status; Z96.643 Presence of artificial hip joint, bilateral; Z96.651 Presence of right artificial knee joint
CPT/HCPCS: 99282

== ENCOUNTER 2023-05-07 12:09 | Inpatient (IN) | payer MEDICARE, BC, MEDICAID, SELFPAY ==
[2023-05-07] VITALS (11 sets, daily range): BP systolic 142–170; BP diastolic 79–103; PULSE 96–104; RESP 16–30; TEMP 36.4–36.8; O2SAT 86–98; BMI 37.3; BMI 33.5
--- NOTE | 2023-05-07 12:27 | EKG12_ITS ---
Test Reason : SOB Blood Pressure : / mmHG Vent. Rate : 101 BPM Atrial Rate : 000 BPM P-R Int : 000 ms QRS Dur : 132 ms QT Int : 386 ms P-R-T Axes : 000 -13 116 degrees QTc Int : 500 ms Normal sinus rhythm Non-specific intra-ventricular conduction block T wave abnormality, consider lateral ischemia Abnormal ECG Confirmed by CARLITOS HOWE, AYAZ ([id number]), newspaper copy editor AMENA OLIVER ([id number]) on 05/08/2023 10:01:53 AM Referred By: Confirmed By:AYAZ URBINA MD
--- NOTE | 2023-05-07 12:27 | RAD_ITS ---
INDICATION: dyspnea EXAMINATION/TECHNIQUE: X-RAY - XR Chest 1 View COMPARISON: Prior study dated: 10/08/2022. FINDINGS: LINES/DEVICES: None. LUNGS: Patchy bilateral infiltrates worse in the right lung base. Small bilateral pleural effusions. MEDIASTINUM AND CARDIOVASCULAR STRUCTURES: Cardiac silhouette not enlarged. Central airways and mediastinal contour are unremarkable. BONES AND SOFT TISSUES: Stable soft tissues and osseous structures. RAD/Chest 1 View (Portable) IMPRESSION: 1. Patchy bilateral infiltrates worse in the right lower lung could be due to pneumonia or edema. 2. Small bilateral pleural effusions. Electronically Signed: Eric Galloway MD at 13:31 EST ,
--- NOTE | 2023-05-07 12:28 | EDS_ITS ---
HPI History of Present Illness Chief Complaint: Shortness of Breath Informant: patient Onset/Context/Timing Onset: Today and Yesterday Context: gradual Timing: Continuous Current Severity: Mild Maximum Severity: Moderate Worsened by: Exertion, Lying flat and Coughing Associated Symptoms cough and white sputum Chest Pain: Positive for None Narrative Narrative: 82-year-old male with extensive past medical history including end-stage renal disease with dialysis. He had a full dialysis run this morning. History of CAD, CHF, anemia. States has been short of breath since yesterday primarily last night. Typically is not on oxygen. Today his pulse ox was 86%. He had a cough of white sputum. Denies any fever or chills. Denies any chest pain. He has had limited wheezing. Also states he has chronic swelling of both lower extremities. PE Risk Factors: Negative for Cancer, OCP + Smoking + > 35, Prior DVT or PE, Recent immobilization, Recent surgery or Recent travel Prior similar symptoms: Yes Recent Illness/Hospitalization: No PFSH PFSH Medical History Abnormal electrocardiogram Abnormal nuclear stress test Acute renal insufficiency Angina pectoris Arthritis Atherosclerosis of [place] coronary artery of [place] heart without angina pectoris Benign essential hypertension Benign prostatic hypertrophy without lower urinary tract symptoms BMI 40.0-44.9, adult Breast mass, left Chest pain Chest pain on exertion Chronic kidney disease Chronic renal failure, stage 3 (moderate) Coronary artery disease Diastolic heart failure Essential hypertension Fatigue Gastroesophageal reflux disease Hyperlipidemia Hypertension Hypokalemia Long-term use of high-risk medication Melanotic stools Normochromic normocytic anemia ALY (obstructive sleep apnea) Pulmonary hypertension Shortness of breath Sinus bradycardia Skin lesion Home Medications aspirin 81 mg chewable tablet 81 mg PO DAILY@0800 04/01/14 [History Last Taken 02/06/22] finasteride 5 mg tablet 5 mg PO DAILY 04/01/14 [History Last Taken 10/02/18] nitroglycerin 0.4 mg sublingual tablet 0.4 mg sublingual Q5M PRN Chest Pain 02/01/15 [History Last Taken 02/27/15] clopidogrel 75 mg tablet 75 mg PO DAILY #90 tabs 06/12/17 [Rx Last Taken 01/09/23] pravastatin 20 mg tablet 20 mg PO QHS #90 tabs 08/08/17 [Rx Last Taken 12/04/17] acetaminophen 325 mg capsule 650 mg PO Q6H PRN PRN pain/fever 02/20/18 [History Last Taken Unknown] furosemide 40 mg tablet 40 mg PO BID 05/02/18 [History Last Taken 10/02/18] levothyroxine 50 mcg tablet 50 mcg PO DAILY 05/02/18 [History Last Taken 02/23/20] loratadine 10 mg tablet 10 mg PO DAILY 10/03/18 [History Last Taken Unknown] tamsulosin 0.4 mg capsule (Flomax) 0.4 mg PO QHS 04/02/19 [History Last Taken Unknown] buspirone 5 mg tablet 5 mg PO BID 12/25/19 [History Last Taken 01/09/23] acetaminophen 325 mg tablet 325 mg PO TID 01/30/22 [History Last Taken 01/09/23] artificial tears(tedpoke-[id number]-vwzixuc) 0.1 %-0.3 %-0.2 % eye drops 1 drp EACH EYE BID 01/30/22 [History Last Taken Unknown] multivitamin 1 tab PO DAILY 01/30/22 [History Last Taken Unknown] ondansetron 4 mg disintegrating tablet 4 mg PO Q6H PRN Nausea 01/30/22 [History Last Taken Unknown] Lactobacillus acidophilus (Acidophilus capsule) 10 mg PO DAILY 05/05/22 [History Last Taken Unknown] fluticasone propionate 50 mcg/actuation nasal spray,suspension (Allergy Relief (fluticasone)) 1 spray intranasal DAILY 05/05/22 [History Last Taken Unknown] guaifenesin 600 mg tablet, extended release 12 hr (Mucinex) 600 mg PO BID 05/05/22 [History Last Taken Unknown] melatonin 5 mg tablet 5 mg PO HS PRN sleep 05/05/22 [History Last Taken Unknown] montelukast 10 mg tablet 10 mg PO QHS 05/05/22 [History Last Taken Unknown] omega 1-bif-ark-fish oil 60 mg-90 mg-500 mg capsule (Fish Oil) 1 cap PO BID 05/05/22 [History Last Taken 01/09/23] pantoprazole 40 mg tablet,delayed release 40 mg PO DAILY 05/05/22 [History Last Taken Unknown] isosorbide mononitrate 30 mg tablet,extended release 24 hr 30 mg PO DAILY #30 tabs 06/19/22 [Rx Last Taken Unknown] doxycycline monohydrate 100 mg capsule 100 mg PO BID #20 CAPSULES 04/29/23 [Rx Last Taken Unknown] Allergy/AdvReac Type Severity Reaction Status Date / Time doxazosin mesylate Allergy Hives Verified 05/07/23 12:11 [From Cardura] fosinopril sodium Allergy Hives Verified 05/07/23 12:11 [From Monopril] lisinopril Allergy Hives Verified 05/07/23 12:11 morphine Allergy Other Verified 05/07/23 12:11 Family History Father Hypertension Cancer Brother CAD (coronary artery disease) Mother Hypertension Sister Hypertension Son Atrial fibrillation Surgical History history fistulogram (~07/27/17) History of angioplasty History of bilateral hip arthroplasty History of left breast biopsy (~06/2018) 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 S/P peripheral artery angioplasty (~03/2022) Status post right partial knee replacement Social History Smoking Status: Former smoker Tobacco: How many years used: 20 second hand exposure: No alcohol intake: never substance use type: does not use caffeine: No what type of physical activity do you participate in: none ROS ROS ED ROS Narrative Short of breath. Cough. Wheezing. Bilateral leg swelling. Review of Systems ROS Unobtainable: Denies due to encephalopathy Constitutional Constitutional ED: Denies chills or fever(s) Eyes Eyes: Denies blurry vision ENT ENT ED: Denies ear pain Cardiovascular Cardiovascular: Denies chest pain or palpitations Respiratory/Chest Respiratory/Chest: Reports cough, dyspnea and sputum Gastrointestinal Gastrointestinal: Denies abdominal pain, diarrhea, nausea or vomiting Genitourinary Genitourinary ED: Denies dysuria or hematuria Musculoskeletal Musculoskeletal: Denies arthralgias Integumentary Denies abscess Neurologic Neurologic: Denies headache(s) Psychiatric Psychiatric: Denies anxiety Endocrine Endocrinology: Denies cold intolerance Hematologic/Lymphatic Hematologic/Lymphatic: Denies easy bleeding, easy bruising or lymphadenopathy Allergic/Immunologic Allergic/Immunologic ED: Denies mouth swelling, tongue swelling or urticaria EXAM Physical Exam Narrative Exam Narrative: 82-year-old male pulse ox 86% on room air and hypoxic. On oxygen is in the low to mid 90s. EENT exam unremarkable. Mytrex membranes. Neck nontender no JVD. Lungs clear to auscultation bilaterally. No rales, rhonchi or wheezing appreciated. Heart regular rhythm rate about 100. Chest wall nontender. Abdomen soft nontender. Back nontender. Moving all 4 extremities. 1+ pitting edema both lower extremities. Dorsi plantarflexion intact. 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 Left arm dialysis fistula. Neurologically he is awake and alert. Answering questions and following commands. No focal motor deficits. Const Vital Signs: 05/07/23 12:11 05/07/23 12:35 05/07/23 12:45 Temperature 98.2 F Temperature Source Temporal Pulse Rate 101 H 100 Respiratory Rate 30 H 27 H Respiratory Effort Respiratory Pattern Blood Pressure 155/86 H Blood Pressure Mean 109 Pulse Ox 86 97 94 Oxygen Delivery Method Room Air Nasal Cannula Nasal Cannula Oxygen Flow Rate (L/min) 2 2 05/07/23 12:42 05/07/23 12:42 05/07/23 13:09 Temperature Temperature Source Pulse Rate 100 103 H Respiratory Rate 20 H 20 H Respiratory Effort Respiratory Pattern Tachypnea Blood Pressure 159/92 H Blood Pressure Mean 114 Pulse Ox 96 92 Oxygen Delivery Method Nasal Cannula Nasal Cannula Oxygen Flow Rate (L/min) 2 2 05/07/23 13:20 05/07/23 14:00 05/07/23 14:04 Temperature 97.6 F L 97.8 F Temperature Source Temporal Temporal Pulse Rate 101 H 96 Respiratory Rate 24 H 16 Respiratory Effort Short of Breath Respiratory Pattern Tachypnea Blood Pressure 142/103 H 156/87 H Blood Pressure Mean 116 110 Pulse Ox 95 91 Oxygen Delivery Method Nasal Cannula Nasal Cannula Nasal Cannula Oxygen Flow Rate (L/min) 2 2 2 05/07/23 16:00 05/07/23 16:00 Temperature 97.6 F L Temperature Source Temporal Pulse Rate 104 H 104 H Respiratory Rate 24 H 24 H Respiratory Effort Respiratory Pattern Blood Pressure 170/90 H 170/90 H Blood Pressure Mean 116 116 Pulse Ox 90 90 Oxygen Delivery Method Nasal Cannula Nasal Cannula Oxygen Flow Rate (L/min) 2 2 Positive well nourished and well developed; Negative for cachectic, contractures or unkempt General Appearance ED: well developed and NAD; Negative for unkempt, cachectic, contractures or pallor Nutritional Appearance: Negative for cachectic HEENT Reports moist mucous membranes; Denies dry mucous membranes atraumatic; Negative for trauma or tenderness Mouth ED: No dry mucous membranes Mouth: No dry mucous membranes Eyes PERRL and EOMs intact bilaterally General Eye ED: Negative for pale conjunctiva or scleral icterus Neck no lymphadenopathy, supple, no meningeal signs and no JVD Lymph Lymphatic: Negative for other Chest Wall Chest: Negative for other Resp normal respiratory effort and clear to auscultation bilaterally Effort and Inspection: Negative for pain with movement Auscultation: Negative for rales, rhonchi or wheezes Cardio regular rate, regular rhythm, S1 normal heart sound, S2 normal heart sound and no murmurs Rate: Negative for bradycardia or tachycardic GI non-tender, non-distended and no masses Inspection: Negative for other Auscultation: normoactive bowel sounds Palpation: soft; Negative for tender or guarding Back/Spine no CVA tenderness and normal to inspection General Back: Negative for CVA tenderness or tenderness Extremity Negative for normal to inspection Extremity Narrative: Bilateral 1+ pitting edema. Calf is nontender. No cords. General Extremety ED: Yes edema; Negative for tenderness General Extremity: edema Neuro oriented x3 Sensorium / Orientation: alert, oriented to person, oriented to place and oriented to time; Negative for orientation impaired, confused, lethargic or stuporous Speech: speech normal Motor Exam: strength 5/5 throughout Psych mental status grossly normal Appearance: Negative for unkempt Attitude: No agitated Mood & Affect: Negative for depressed, anxious or tearful Skin no wounds General Skin Exam: Negative for pallor Lesions: no lesions Rashes: no rashes MDM MDM MDM Narrative Medical decision making narrative: 82-year-old male with shortness of breath history of end-stage renal disease, di alyzed today and history of CHF. This may be secondary to respiratory infection, viral versus bacterial. Possible pneumonia. Versus CHF. Or cardiac etiology. Labs and chest x-ray being obtained. Repeat exam patient is doing better from a respiratory standpoint at 4:00. Wheezing is resolved. Without oxygen and becomes hypoxic in the 80s. Patient be admitted to the hospitalist. He was given aerosol treatments. He will be given Solu-Medrol IV. Patient did try to climb out of bed and had skin tears on his forearm which the nurses addressed. They do not need to be repaired. He had no other injuries. I discussed the test results with the patient and his son in the room. They understand he will be admitted. History & Record Review Discussion w/independent historian: Patient Additional record(s) reviewed:: Prior inpatient record, Prior outpatient record and Prior ED visit Lab Data Attestation: I reviewed the patient's lab results. Lab results narrative: BC shows a white count of 7. H&H 11.7 and 37. Platelets 205. Chemistries show a gap of 7. BUN and creatinine are 26 and 3.8 he has a history of end-stage renal disease and gets dialyzed. Glucose 139. Troponin elevated 99. BNP elevated at 1226. COVID positive. RSV and flu negative. Labs: Laboratory Results - last 24 hr 05/07/23 05/07/23 12:23 12:40 WBC 7.7 RBC 4.03 L Hgb 11.7 L Hct 37.1 L MCV 92.1 MCH 29.0 MCHC 31.5 L RDW Std Deviation 49.3 H RDW Coeff of Colleen 14.6 Plt Count 205 MPV 10.5 Immature Gran % (Auto) 0.500 Neut % (Auto) 76.8 H Lymph % (Auto) 10.4 L Fountain % (Auto) 11.2 H Eos % (Auto) 0.6 Baso % (Auto) 0.5 Absolute Neuts (auto) 5.9 Absolute Lymphs (auto) 0.80 L Nucleated RBC % 0 Sodium 139 Potassium 3.6 Chloride 98 Carbon Dioxide 34.0 H Anion Gap 7 BUN 26 H Creatinine 3.88 H Estim Creat Clear Calc 13.71 Est GFR (MDRD) Af Amer 19 L Est GFR (MDRD) Non-Af 16 L BUN/Creatinine Ratio 6.7 L Glucose 139 H Calcium 10.3 H Troponin I High Sens 99 H B-Natriuretic Peptide 1226.4 H Radiography Chest X-Ray - ED: 1 View, Read by ED Physician, Read by Radiologist, Heart, Mediastinum, Bony Structures and Chronic Changes Diagnostic Testing: Clinical Impression(s) from Imaging Studies Chest X-Ray 05/07/23 12:27 IMPRESSION: 1. Patchy bilateral infiltrates worse in the right lower lung could be due to pneumonia or edema. 2. Small bilateral pleural effusions. Electronically Signed: Eric Galloway MD at 13:31 EST , History, portable, single view interpreted both by myself and the radiologist. Bilateral pleural effusions. Normal cardiac silhouette. There is densities on both lower lungs but this was seen on prior films. I do not think this is acute pneumonia it could be interstitial edema or chronic changes. Compared to a film from 10/08/2022 was very similar. Rhythm Strip Rhythm Strip: Sinus Tach Rate: 101 Ectopy: None EKG Initial EKG: Attestation: I personally reviewed and interpreted this EKG as follows: Interpretation: No Acute Injury Pattern and Sinus Tachycardia Comments: Sinus tachycardia rate of 101. LVH. No significant changes from prior EKG from September. No signs of DC or ischemia. Patient has chronic ST flattening in the lateral leads which was seen on the prior EKG. Prior EKG tracings: available for review Prior: Unchanged Critical Care Time Critical Care Time: Yes Critical care time (excluding procedures): 30-74 minutes, Including time spent:, Discussing w/Patient &/or Family/Operation Supervisor, Discussing w/Consultants, Arranging Admission or Transfer, Performing Direct Patient Care at Bedside and - (35 minutes) Discharge Plan Dx/Rx/DC Orders Clinical Impression: Bilateral wheezing, COVID, History of heart failure, Hypoxia, Chronic anemia, End stage renal disease Disposition Disposition: Acute Care Hospital [facility]
[2023-05-07] MEDS: Albuterol 2.5 MG/3 ML VIAL.NEB. INHALATION (12:39)
[2023-05-07] MEDS: Ipratropium/Albuterol Sulfate 3 ML AMPUL.NEB INHALATION (12:39)
[2023-05-07 12:51] LABS: Absolute Neutrophil Count 5.9 X10^3/uL (2.0-7.7); Basophil# 0.04 X10^3/uL; Basophil% 0.5 % (0-1); Eosinophil# 0.05 X10^3/uL; Eosinophils% 0.6 % (0-5); Hematocrit 37.1 % (40-54); Hemoglobin 11.7 g/dL (13.0-16.5); Lymphocyte % 10.4 % (19-41); Mean Corp Hgb Conc 31.5 g/dL (32-36); Mean Corpuscular Volume 92.1 fL (80-94); Mean Platelet Vol. 10.5 fl (6.2-12.0); Monocyte# 0.86 X10^3/uL; Monocyte% 11.2 % (0-10); NRBC Flagged by Analyzer 0 % (0-5); Neutrophil # 5.92 X10^3/uL (2.7-7.7); Neutrophil % 76.8 % (47-70); Platelet Count 205 K/mm3 (150-450); RBC Distribution Width CV 14.6 % (11.6-14.6); RBC Distribution Width SD 49.3 fl (35.1-43.9); Red Blood Count 4.03 M/mm3 (4.6-6.2); White Blood Count 7.7 K/mm3 (4.4-11.0)
[2023-05-07 13:09] LABS: Anion Gap 7 (5-15); BUN 26 mg/dL (7-18); BUN/Creat Ratio 6.7 RATIO (10-20); Calcium,Total 10.3 mg/dL (8.5-10.1); Chloride 98 mmol/L (98-107); Creatinine, Serum 3.88 mg/dL (0.70-1.30); EST Glomerular Filtration Rate 16 mL/min (>60); Est Glom Filt Rate - Afr Amer 19 mL/min (>60); Estimated Creatinine Clearance 13.71 ml/min; Glucose 139 mg/dL (74-106); Potassium 3.6 mmol/L (3.5-5.1); Sodium Level 139 mmol/L (136-145); Troponin-I HS 99 pg/mL (3.0-78.0)
[2023-05-07 13:12] LABS: BNP,B-Type NATRIURETIC PEPTIDE 1226.4 pg/mL (0-100)
--- NOTE | 2023-05-07 15:52 | ED.RN ---
pt son arrives to [facility] states i am here to check on my father, no one ever called like they were supposed to. you people just think my schedule is free family member shown which room father was in.
--- NOTE | 2023-05-07 15:58 | ED.RN ---
Patient heard yelling from room. Patient found on floor in the sitting position. Noted skin tears to right lower arm. Denies pain. Denies hitting his head. When asked what the patient was needing he said he wanted to go home. Bilateral side bed guard rails up and call light was in reach. Skin tears dressed. VS as follow BP 156/76. P 95 SPO2 on room air 88%. 2L via nasal canula applied. Dr. Brooke notified.
[2023-05-07] MEDS: MethylPREDNISolone 125 MG/2 ML Vial IV (16:19)
--- NOTE | 2023-05-07 16:24 | HP.PCM.HOS_ITS ---
HPI - General General Date of Admission: 05/07/23 Date of Service: 05/07/23 Chief Complaint: Dyspnea, cough, orthopnea, wheezing. HPI Narrative The patient is an 82 y/o M w/ PMHx: CAD, PAD, Anxiety, Hypothyroidism, Allergic rhinitis, GERD, HTN, HLD, Obesity, BPH, HFcombinedEF, ALY who presents to the [facility] ED on 05/07/22 with history of recent dialysis on AM of day of presentation with ongoing persistent dyspnea since the evening prior with recent cough with white sputum with no recent fevers or chills but onset of wheezing with unchanged lower extremity swelling however patient notes his symptoms are worsened with activity and also coughing fits as well as attempting to lay flat prompting eventual ED evaluation. While in the ED patient did attempt to climb out of the bed with some skin tears to his forearms however these did not appear severe and required no repair. Patient does state that he was vaccinated for COVID and even had the most recent booster. He denies any specific ill contacts. He denies any recent fever/chills/nausea/emesis/abdominal pain/headaches or marked URI type symptoms. Workup in the ED included T98.2, heart rate 101, BP 155/86, respiratory rate initially 30 noted to be 86% on room air with most recent repeat vitals heart rate 104, BP 170/90, respiratory rate 24, 90% on 2 L nasal cannula, CBC with WBC 7.7, hemoglobin 11.7, MCV 92.1, platelet 205 with lymphopenia, BMP with carbon oxide 34, BUN/creatinine 26/3.88, GFR 16, glucose 139, calcium 10.3, troponin 99, BNP 1226.4, SARS COVID/influenza/RSV PCR with positive SARS COVID, chest x-ray with patchy bilateral infiltrates worse in the right lower lung, small bilateral pleural effusions, EKG sinus tachycardia with chronic ST flattening in the lateral leads unchanged from previous with no acute evidence of ischemia. In the ED patient ministered albuterol, DuoNeb therapy as well as Solu-Medrol 125 mg IV x 1. [facility] History Abnormal electrocardiogram Abnormal nuclear stress test Acute renal insufficiency Angina pectoris Arthritis Atherosclerosis of [place] coronary artery [place] heart without angina pectoris Benign essential hypertension Benign prostatic hypertrophy without lower urinary tract symptoms BMI 40.0-44.9, adult Breast mass, left Chest pain Chest pain on exertion Chronic kidney disease Chronic renal failure, stage 3 (moderate) Coronary artery disease Diastolic heart failure Essential hypertension Fatigue Gastroesophageal reflux disease Hyperlipidemia Hypertension Hypokalemia Long-term use of high-risk medication Melanotic stools Normochromic normocytic anemia ALY (obstructive sleep apnea) Pulmonary hypertension Shortness of breath Sinus bradycardia Skin lesion Home Medications finasteride 5 mg tablet 5 mg PO 1200 PROSTATE 04/01/14 [History Last Taken 05/06/23] nitroglycerin 0.4 mg sublingual tablet 0.4 mg sublingual Q5M PRN Chest Pain 02/01/15 [History Last Taken 02/27/15] acetaminophen 325 mg capsule 650 mg PO TID pain/fever 02/20/18 [History Last Taken 05/07/23] levothyroxine 50 mcg tablet 50 mcg PO 1200 THYROID 05/02/18 [History Last Taken 05/04/23] loratadine 10 mg tablet 10 mg PO DAILY ALLERGIES 10/03/18 [History Last Taken 05/06/23] tamsulosin 0.4 mg capsule (Flomax) 0.4 mg PO 1700 PROSTATE 04/02/19 [History Last Taken 05/06/23] buspirone 5 mg tablet 5 mg PO BID ANXIETY 12/25/19 [History Last Taken 05/07/23] fluticasone propionate 50 mcg/actuation nasal spray,suspension (Allergy Relief (fluticasone)) 1 spray intranasal 1200 NASAL CONGESTION 05/05/22 [History Last Taken 05/04/23] guaifenesin 600 mg tablet, extended release 12 hr (Mucinex) 600 mg PO BID MUCUS RELIEF 05/05/22 [History Last Taken Unknown] montelukast 10 mg tablet 10 mg PO QHS ALLERGIES 05/05/22 [History Last Taken 05/06/23] omega [id number]-fish oil 60 mg-90 mg-500 mg capsule (Fish Oil) 1 cap PO BID SUPPLEMENT 05/05/22 [History Last Taken 05/07/23] pantoprazole 40 mg tablet,delayed release 40 mg PO 1200 ACID REFLUX 05/05/22 [History Last Taken 05/04/23] amlodipine 5 mg tablet 5 mg PO DAILY BLOOD PRESSURE 05/07/23 [History Last Taken 05/04/23] aspirin 81 mg tablet,delayed release 81 mg PO 1200 HEART HEALTH 05/07/23 [History Last Taken 05/04/23] clopidogrel 75 mg tablet 75 mg PO 1200 BLOOD THINNER 05/07/23 [History Last Taken 05/06/23] doxycycline monohydrate 100 mg capsule 100 mg PO BID 05/07/23 [History Last Taken 05/07/23] hydromorphone 4 mg tablet 4 mg PO Q4H PRN PAIN 05/07/23 [History Last Taken 05/07/23] multivitamin-iron 9 mg-folic acid 400 mcg-calcium and minerals tablet (Thera-M) 1 tab PO 1200 SUPPLEMENT 05/07/23 [History Last Taken 05/05/23] pravastatin 20 mg tablet 20 mg PO 1700 CHOLESTEROL 05/07/23 [History Last Taken 05/06/23] propylene glycol 0.6 % eye drops (Systane Complete) 1 drp ophthalmic (eye) BID EYE LUBRICANT 05/07/23 [History Last Taken 05/06/23] torsemide 20 mg tablet 20 mg PO DAILY EDEMA 05/07/23 [History Last Taken 05/06/23] vit C 250 mg-vit E 90 mg-zinc 40 mg-copper 1 [id number] capsule (PreserVision AREDS-2) 1 tab PO BID SUPPLEMENT 05/07/23 [History Last Taken 05/06/23] Allergy/AdvReac Type Severity Reaction Status Date / Time doxazosin mesylate Allergy Hives Verified 05/07/23 12:11 [From Cardura] fosinopril sodium Allergy Hives Verified 05/07/23 12:11 [From Monopril] lisinopril Allergy Hives Verified 05/07/23 12:11 morphine Allergy Other Verified 05/07/23 12:11 Family History Father Hypertension Cancer Brother CAD (coronary artery disease) Mother Hypertension Sister Hypertension Son Atrial fibrillation Surgical History history fistulogram (~07/27/17) History of angioplasty History of bilateral hip arthroplasty History of left breast biopsy (~06/2018) 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 S/P peripheral artery angioplasty (~03/2022) Status post right partial knee replacement Social History (Updated 05/07/23 @ 19:[address] Agueda Cope MD) household members: none housing: shelter Smoking Status: Former smoker Tobacco: How many years used: 20 second hand exposure: No alcohol intake: never substance use type: does not use caffeine: No what type of physical activity do you participate in: none ROS ROS Narrative Admission Review of Systems: CONSTITUTIONAL: No weight loss, fever, chills, + weakness or fatigue. HEENT: Eyes: No visual loss, blurred vision, double vision or yellow sclerae. Ears, Nose, Throat: No hearing loss, sneezing, congestion, runny nose or sore throat. SKIN: No rash or itching, lesions, wounds. CARDIOVASCULAR: + Mild orthopnea, edema. No chest pain, chest pressure or chest discomfort, palpitations, syncopal events. RESPIRATORY: + Shortness of breath, cough with denied sputum marker production but upon evaluation he does have a collection of sputum in his palacio hair, wheezing. No hemoptysis. GASTROINTESTINAL: + anorexia. No nausea, vomiting or diarrhea, abdominal pain, melena, BRBPR. GENITOURINARY: No dysuria, frequency, urgency or retention. NEUROLOGICAL: No headache, dizziness, syncope, paralysis, ataxia, numbness or tingling in the extremities, focal weakness, change in bowel or bladder control, seizure. MUSCULOSKELETAL: + muscle, back pain, joint pain or stiffness. HEMATOLOGIC: + anemia, easy bleeding/bruising. LYMPHATICS: No enlarged nodes. No history of splenectomy. PSYCHIATRIC: No history of depression or anxiety. ENDOCRINOLOGIC: No reports of sweating, cold or heat intolerance. No polyuria or polydipsia. ALLERGIES: + Hives. Vital Signs Vital Signs Vital Signs: 05/07/23 12:11 05/07/23 12:35 05/07/23 12:45 Temperature 98.2 F Temperature Source Temporal Pulse Rate 101 H 100 Respiratory Rate 30 H 27 H Respiratory Effort Respiratory Pattern Blood Pressure 155/86 H Blood Pressure Mean 109 Pulse Ox 86 97 94 Oxygen Delivery Method Room Air Nasal Cannula Nasal Cannula Oxygen Flow Rate (L/min) 2 2 05/07/23 12:42 05/07/23 12:42 05/07/23 13:09 Temperature Temperature Source Pulse Rate 100 103 H Respiratory Rate 20 H 20 H Respiratory Effort Respiratory Pattern Tachypnea Blood Pressure 159/92 H Blood Pressure Mean 114 Pulse Ox 96 92 Oxygen Delivery Method Nasal Cannula Nasal Cannula Oxygen Flow Rate (L/min) 2 2 05/07/23 13:20 05/07/23 14:00 05/07/23 14:04 Temperature 97.6 F L 97.8 F Temperature Source Temporal Temporal Pulse Rate 101 H 96 Respiratory Rate 24 H 16 Respiratory Effort Short of Breath Respiratory Pattern Tachypnea Blood Pressure 142/103 H 156/87 H Blood Pressure Mean 116 110 Pulse Ox 95 91 Oxygen Delivery Method Nasal Cannula Nasal Cannula Nasal Cannula Oxygen Flow Rate (L/min) 2 2 2 05/07/23 16:00 05/07/23 16:00 Temperature 97.6 F L Temperature Source Temporal Pulse Rate 104 H 104 H Respiratory Rate 24 H 24 H Respiratory Effort Respiratory Pattern Blood Pressure 170/90 H 170/90 H Blood Pressure Mean 116 116 Pulse Ox 90 90 Oxygen Delivery Method Nasal Cannula Nasal Cannula Oxygen Flow Rate (L/min) 2 2 Weight Weight: 245 lb 13.047 oz Body Mass Index (BMI) 37.3 Physical Exam Narrative Physical Examination: General: Awake, alert, oriented to self, place and some recent events, fatigued, remains cooperative, seated upright in ED bed, ill-appearing, mildly increased respiratory rate but no distress. Skin: Normal color, normal turgor, no icterus, no cyanosis except occasional staged ecchymoses as well as significant bilateral lower extremity venous stasis disease as well as stasis blister ulcers noninfected appearing. HEENT: AT/NC, EOMI, PERRLA, mildly dry MM, no carotid bruits, + JVD noted. Lungs: Diffusely diminished, greater bases, noted end expiratory occasional wheeze, mild appreciated rales, no rhonchi, mildly increased respiratory rate but no distress. Heart: Mildly tachycardic with regular rhythm; no gallop, rub audible. Abdomen: Soft, obese, NTTP, ND, hyperactive BS, no HSM. Extremities: No cyanosis, no clubbing, chronic bilateral lower extremity lymphedema with pitting edema present, see skin. Neurological: Patient awake, alert, oriented as noted, cognitive function s uspect patient is not quite at his baseline given his acute illness; pupils equally reactive to light and accommodation, cranial nerves grossly normal, moving all 4 extremities, no focal deficits, strength severely globally decreased secondary to acute presentation compounded by underlying comorbidities Psychiatric: Affect appears fatigued, ill appearing, no acute evidence of depressive or anxiety feelings. Results Lab / Micro Data 05/07/23 12:23 05/07/23 12:23 Labs: Laboratory Results - last 24 hr 05/07/23 12:23: WBC 7.7, RBC 4.03 L, Hgb 11.7 L, Hct 37.1 L, MCV 92.1, MCH 29.0, MCHC 31.5 L, RDW Std Deviation 49.3 H, RDW Coeff of Colleen 14.6, Plt Count 205, MPV 10.5, Immature Gran % (Auto) 0.500, Neut % (Auto) 76.8 H, Lymph % (Auto) 10.4 L, Hitchcock % (Auto) 11.2 H, Eos % (Auto) 0.6, Baso % (Auto) 0.5, Absolute Neuts (auto) 5.9, Absolute Lymphs (auto) 0.80 L, Nucleated RBC % 0, Sodium 139, Potassium 3.6, Chloride 98, Carbon Dioxide 34.0 H, Anion Gap 7, BUN 26 H, Creatinine 3.88 H, Estim Creat Clear Calc 13.71, Est GFR (MDRD) Af Amer 19 L, Est GFR (MDRD) Non-Af 16 L, BUN/Creatinine Ratio 6.7 L, Glucose 139 H, Calcium 10.3 H, Troponin I High Sens 99 H 05/07/23 12:40: B-Natriuretic Peptide 1226.4 H Micro: Microbiology 05/07/23 12:38 Mucosa - Nose SARS-CoV-2, Influenza & RSV (PCR) - Final SARS-CoV-2 (COVID 19 PCR) Rhythm Strip Rhythm Strip: Sinus Tach Rate: 101 Ectopy: None Imagaing Radiology Impression Chest X-Ray 05/07/23 12:27 IMPRESSION: 1. Patchy bilateral infiltrates worse in the right lower lung could be due to pneumonia or edema. 2. Small bilateral pleural effusions. Electronically Signed: Eric Galloway MD at 13:31 EST , Assessment & Plan Assessment/Plan (1) COVID: PLAN: Plan The patient is an 82 y/o M w/ PMHx: CAD, PAD, Anxiety, Hypothyroidism, Allergic rhinitis, GERD, HTN, HLD, Obesity, BPH, HFcombinedEF, ALY who presents to the [facility] ED on 05/07/22 with history of recent dialysis on AM of day of presentation with ongoing persistent dyspnea since the evening prior with recent cough with white sputum with no recent fevers or chills but onset of wheezing with unchanged lower extremity swelling however patient notes his symptoms are worsened with activity and also coughing fits as well as attempting to lay flat prompting eventual ED evaluation. #1. Acute Hypoxia secondary to Acute Bilateral Pneumonia secondary to Acute Viral Syndrome, COVID-19 and possible overlapping Acute Combined HF Exacerbation/Overload: Will admit to the PCU, maintain on COVID precautions, will maintain on oxygen with wean as tolerated to room air, PRN albuterol, HOB, IS parameters, will obtain D-dimer, procalcitonin, CRP, CPK, Ferritin, LDH, cycle trop, continue supportive, will initiate and continue IV decadron x 10 doses, given presentation will also initiate IV remdesivir per most recent update from Dr. De Oliveira Infectious disease as can be used with CrCl <30 but defer to discretion of Infectious disease. Will continue IV lasix diuresis pending dialysis given ESRD status, monitor I/Os, continue medical therapy, obtain TSH and magnesium level. Most recent ECHO noted 10/26/2022 with normal LV size, LV EF 20%, severe global LV systolic dysfunction, mild to moderate MVI, mild TVI, moderate concentric LVH, global longitudinal strain severely abnormal and when compared to previous study the LV systolic function had worsened. If respiratory status worsens and patient requires airvo or would request ID involvement. #2. Indeterminate cardiac enzyme, suspect demand related/mediated secondary to #1: EKG sinus tachycardia with chronic ST flattening in the lateral leads unchanged from previous with no acute evidence of ischemia, CXR w/ as noted bilateral pulmonary infiltrates with suspected bilateral pneumonia, COVID-19, initial trop 99. Will place on a monitored bed to assure no acute myocardial infarction with serial cardiac enzymes and EKGs. Most recent ECHO noted 10/26/2022 with normal LV size, LV EF 20%, severe global LV systolic dysfunction, mild to moderate MVI, mild TVI, moderate concentric LVH, global longitudinal strain severely abnormal and when compared to previous study the LV systolic function had worsened. Magnesium level requested. Will continue to monitor enzymes and if significantly rise may consider heparin drip however at this time we will hold on immediate echocardiogram or drip pending trend. #3. Recent left forearm cellulitis/abscess: Patient with ED visit 04/29/2023 with visible draining abscess at that time per review of ED notes with discussi on with ED physician for further I&D however he declined at that time requesting oral antibiotics, discharged on oral doxycycline 10-day course thus will continue regimen at this time. #4. CAD/PAD: s/p angioplasty, also peripheral per records, will continue patient home Plavix, statin home regimen, does not appear to be on any beta- viet therapy with reported history of sinus bradycardia likely etiology or KENYETTA inhibitor/ARB secondary to hives reported. #5. Hypertension: Continue home regimen including IV Lasix as noted pending further intervention, continue isosorbide home regimen, PRN hydralazine. #6. Hyperlipidemia: Continue home statin regimen. AM FLP. #7. Chronic normocytic anemia/AOCD: Admission hemoglobin 11.7, MCV 92.1, baseline hemoglobin primarily 10-11, continue to trend. #8. ESRD: As noted given presentation requesting earlier HD, will continue consultation with nephrology. #9. Hypothyroidism: Continue home synthroid regimen, TSH pending. #10. ALY: Given presentation will initiate PAP therapy now, transition to home regimen once improved. #11. Allergic rhinitis: We will continue patient home loratadine and montelukast as well as fluticasone regimen. #12. BPH: We will continue patient home Flomax and finasteride regimen. #13. Anxiety: We will continue patient home low-dose BuSpar regimen, hold for sedation #14. Former tobacco use: Encourage continued tobacco cessation. #15. GERD: We will continue patient on PPI. #16. DVT prophylaxis: Heparin. #17. CODE status: Patient ENIO is his son Alok and living will is currently in place. Discussed CODE status at length including difference between FULL code, DNR-CCA and DNR-CC status. Following discussions about the differences in these status, requested DNR-CCA, no intubation status. Advanced Care Planning Face to Face Time: 16 minutes. Charges/Coding Visit Charges Inpatient E&M: 95025 Init Hosp L3 Procedures Hospitalists Procedures: 05780 Advncd Care Plan 30 Min
[2023-05-07 17:21] LABS: Erythrocyte Sedimentation Rate 23 mm/hr (0-20)
--- OUTSIDE RECORDS SUMMARY | 2023-05-07 17:42 | XMS RPT_ITS | CCD ---
Author Name Unknown Address [address] [place] [address] Organization [facility] Care Team Providers Care Historic Site Administrator Name Role Phone ARABELLA VILLARREAL MD Admitting [...] NICK Livingston Attending Unavailable WILLOW, DR NICK Livingston Primary Care Unavailable LAWRENCE, DR RADHA Trujillo Admitting Unavaila ble LAWRENCE, DR RADHA Trujillo Attending Unavaila ble LAWRENCE, DR RADHA Trujillo Primary Care Unavaila RAFI Mcmillan MD Admitting Unavailable RAFI BUCK MD Attending Unavailable RAFI BUCK MD Primary Care Unavailable LAWRENCE, DR RADHA Trujillo Admitting Unavaila ble LAWRENCE, DR RADHA Trujillo Attending Unavaila ble LAWRENCE, DR RADHA Trujillo Primary Care Unavaila ble Unavailable Primary Care Provider Unavailottoniel e Allergies Allergy Classification Reported Allergen(s) Allergy Type Date of Onset Reaction(s) Facility (1 source) Doxazosin Drug Allergy [facility] Rep[facility] (2 sources) Lisinopril; Translations: [LISINOPRIL] Drug Allergy 0 [facility] (2 sources) Morphine; Translations: [MORPHINE] Drug Allergy 0 [facility] (1 source) sun exposure Drug allergy (disorder) [facility] (2 sources) Doxazosin; Translations: [DOXAZOSIN] Drug Allergy 0 Unknown [facility] (2 sources) Fosinopril; Translations: [FOSINOPRIL] Drug Allergy 0 Unknown [facility] (1 source) Lisinopril Drug Allergy 0 Unknown [facility] (1 source) Morphine Drug Allergy 0 Mental Status Change [facility] Medications Completed/Discontinued Medications Medication Drug Class(es) [...] source) Long-term current use of anticoagulant; Translations: [group home (current) use of anticoagulants] Onset: 02-02-2020 02-02-2020 [...] 98.6 [degF] Nicolas Mayorga APRN.CNP Work Phone: [facility] 09-03-2022 08:14-0400 Body weight 112.49 kg Nicolas Mayorga APRN.CNP Work Phone: [facility] 09-03-2022 08:14-0400 Diastolic blood pressure 100 mm[Hg] Nicolas Mayorga APRN.CNP Work Phone: [facility] 09-03-2022 08:14-0400 Heart rate 102 /min Nicolas Mayorga APRN.CNP Work Phone: [facility] 09-03-2022 08:14-0400 Respiratory rate 18 /min Nicolas Mayorga APRN.CNP Work Phone: [facility] 09-03-2022 08:14-0400 SaO2% (BldA) [Mass fraction] 96 % Nicolas Mayorga APRN.CNP Work Phone: [facility] 09-03-2022 08:14-0400 Systolic blood pressure 168 mm[Hg] Nicolas Mayorga APRN.DANCING TEACHER Work Phone: [facility] Encounters Encounter Date Encounter Type Care Provider Facility Start: 09-03-2022 End: 09-03-2022 ambulatory Facility:[facility] Start: 09-03-2022 End: 09-03-2022 Patient encounter procedure Nicolas Mayorga APRN.CNP Work Phone: [facility] Plan of Treatment Date Care Activity Detail Author Start: 12-29-2022 Influenza vaccination INFLUENZ A (Season Ended) [facility] Start: 04-30-2022 ADVANCE DIRECTIVE DISCUSSION ADVANCE DIRECTIVE DISCUSSION [facility] Start: 04-28-2021 COVID-19 VACCINE (4 - Booster for Pfizer series) COVID-19 VACCINE (4 - Booster for Pfizer series) [facility] Start: 03-12-2018 DIABETES SCREEN DIABETES SCREEN [facility] Start: 1957 SHINGRIX VACCINE (1 of 2) SHINGRIX VACCINE (1 of 2) [facility] Start: 1957 Urine microalbumin profile DTAP,TDAP,TD (1 - Tdap) [facility] Start: 1944 PNEUMOCOCCAL: 65+ (1 - PCV) PNEUMOCOCCAL: 65+ (1 - PCV) [facility] Radiologic exam ches t 2 views XR CHEST 2V FRONTAL/LAT Radiology STAT SOB (shortness of breath) Ordered: 09/03/2022 [facility] Work Phone: Payers Date Payer Category Payer Medicaid [facility] MEDICAID MYC ARE [facility] MEDICAID [id number] 2022-Present [phone] [address] [place] [address] Medicaid [id number] 2022 Medicare UHC MEDICARE MYC ARE UHC MEDICARE [id number] 2022-Present [phone] [address] [place] [address] Medicare [id number] 2022 Medicare [id number] 1938 Unknown [id number] 1938 Unknown [id number] 1938 Unknown [id number] 1938 Unknown [id number] 1938 Unknown [id number] 1938 Unknown [id number] 1938 Unknown [id number] 1938 Unknown [id number] 1938 Unknown [id number] Medicaid [id number] Medicaid [id number] Medicare [id number] Social History Date Type Detail Facility Start: 09-03-2022 [facility] Work Phone: End: 04-30-1987 History of tobacco use Current smoker [facility] Work Phone: End: 04-30-1987 History of tobacco use Cigarette Smoker [facility] Work Phone: Start: 09-03-2022 Tobacco use and exposure Former smokeless tobacco user [facility] Work Phone: End: 04-30-1987 History of tobacco use User of smokeless tobacco [facility] Work Phone: Start: 1940 Sex Assigned At Not on file [facility] Progress note 09-03-2022 Note Date & Type Note Facility 09-03-2022 Note HNO ID: [id number] Author: Nicolas Mayorga APRN.DANCING TEACHER Service: ? Author Type: Nurse Practitioner Type: [...] NASAL) 0.65 % nasal spray Use 1 Premier in the nose every 2 hours as [...] XR CHEST 2V FRONTAL/LAT Nicolas Mayorga APRN.EMILIA [facility] History of Present illness Narrative 09-03-2022 Nicolas [...] NASAL) 0.65 % nasal spray Use 1 Premier in the nose every 2 hours as [...] Nicolas Mayorga APRN.EMILIA documented in this encounter [facility] Evaluation note Note Date & Type Note Facility documented in this encounter [facility] Summary Purpose Family History No Family History Records FoundNo Family History Records Found Advance Directives No Advanced Directives Records FoundNo Advanced Directives Records Found Additional Source Comments (unrecognized sect ion and content) No Status Records FoundNo Status Records Found INFORMATION SOURCE (unrecogn ized section and content) DATE CREATED AUTHOR AUTHOR'S ORGANIZ ATION 09/04/2022 [facility] Source Comments (unrecognize d section and content) In the event this informatio n is protected by the Federal Confidentiality of Alcohol and Drug Abuse Patient Records regulations: The Federal rules restrict any use of the information to criminally investigate or prosecute any alcohol or drug abuse patient.[facility] Reason for Visit (unrecogniz ed section [...] BE BASED ON THE PRIMARY CLINICAL RECORDS. [facility] provides no warranty or guarantee of the accuracy or completeness of information in this document.
--- NOTE | 2023-05-07 17:47 | ED.RN ---
Son Alok notified of floor and room number.
[2023-05-07 17:49] LABS: CPK Total, Creatine Kinase 23 U/L (39-308); Ferritin 1414 ng/mL (26-388); LDH 181 U/L (87-241); Magnesium 2.1 mg/dL (1.6-2.6); Phosphorus 2.6 mg/dL (2.5-4.9)
[2023-05-07] MEDS: Furosemide 40 MG/4 ML Vial IV (18:29)
[2023-05-07 19:29] LABS: Troponin-I HS 94 pg/mL (3.0-78.0)
[2023-05-07] MEDS: Remdesivir 200 MG in 0.9% Normal Saline (250mL Bag) 210 ML 250 MG IV (19:38)
[2023-05-07] MEDS: 0.9% Saline Lock 10 ML Syringe IV (19:39)
[2023-05-07] MEDS: busPIRone 5 MG Tablet PO (19:43)
[2023-05-07] MEDS: Tamsulosin HCl 0.4 MG Capsule 0.400000000000000022 MG PO (19:44)
[2023-05-07] MEDS: Pravastatin 20 MG Tablet PO (19:45)
[2023-05-07] MEDS: Heparin Injection (Vial) 5,000 UNIT/ML VIAL 5000 UNIT SC (19:45)
[2023-05-07] MEDS: guaiFENesin 600 MG Tablet PO (19:46)
[2023-05-07] MEDS: Montelukast 10 MG Tablet PO (19:46)
[2023-05-07] MEDS: Doxycycline 100 MG CAPSULE PO (19:47)
[2023-05-07 21:19] LABS: Troponin-I HS 105 pg/mL (3.0-78.0)
[2023-05-08] VITALS (8 sets, daily range): BP systolic 130–174; BP diastolic 68–90; PULSE 73–95; RESP 16–20; TEMP 36.6–37.2; O2SAT 92–98; BMI 34.0
[2023-05-08 01:11] LABS: Troponin-I HS 113 pg/mL (3.0-78.0)
[2023-05-08] MEDS: Levothyroxine 50 MCG Tablet PO (04:53)
[2023-05-08 06:48] LABS: Absolute Neutrophil Count 4.2 X10^3/uL (2.0-7.7); Basophil# 0.01 X10^3/uL; Basophil% 0.2 % (0-1); Hematocrit 29.8 % (40-54); Hemoglobin 9.4 g/dL (13.0-16.5); Lymphocyte % 9.6 % (19-41); Mean Corp Hgb Conc 31.5 g/dL (32-36); Mean Corpuscular Hgb 29.3 pg (27.0-32.0); Mean Corpuscular Volume 92.8 fL (80-94); Mean Platelet Vol. 10.5 fl (6.2-12.0); Monocyte# 0.48 X10^3/uL; Monocyte% 9.2 % (0-10); NRBC Flagged by Analyzer 0 % (0-5); Neutrophil % 80.8 % (47-70); POSITIVE DIFFERENTIAL YES; Platelet Count 194 K/mm3 (150-450); RBC Distribution Width CV 14.6 % (11.6-14.6); RBC Distribution Width SD 49.3 fl (35.1-43.9); Red Blood Count 3.21 M/mm3 (4.6-6.2); White Blood Count 5.2 K/mm3 (4.4-11.0)
[2023-05-08 07:09] LABS: Differential Indicated SCAN CRITERIA MET
[2023-05-08 07:23] LABS: ALB/GLOB Ratio 0.8 RATIO (0.9-2.4); AST(SGOT) 12 U/L (15-37); Alanine Aminotransfer ALT/SGPT 13 U/L (16-61); Albumin, Serum 2.8 g/dL (3.2-5.0); Alkaline Phosphatase 75 U/L (45-117); Anion Gap 5 (5-15); BUN 42 mg/dL (7-18); BUN/Creat Ratio 8.3 RATIO (10-20); Calcium,Total 9.5 mg/dL (8.5-10.1); Chloride 101 mmol/L (98-107); Cholesterol 125 mg/dL (200); Creatinine, Serum 5.09 mg/dL (0.70-1.30); EST Glomerular Filtration Rate 12 mL/min (>60); Est Glom Filt Rate - Afr Amer 14 mL/min (>60); Globulin 3.5 g/dL (2.2-4.2); Glucose 197 mg/dL (74-106); High Density Lipoprotein 38 mg/dL; Potassium 4.2 mmol/L (3.5-5.1); Protein, Total 6.3 g/dL (6.4-8.2); Sodium Level 138 mmol/L (136-145); Thyroid Stim Hormone (TSH) 2.85 uIU/mL (0.358-3.74); Triglycerides 107 mg/dL; Very Low Density Lipoprotein 21 mg/dL (5-40)
[2023-05-08] MEDS: Budesonide Respules 0.5 MG/2 ML AMPUL.NEB. INHALATION ×2 (07:59→20:00)
[2023-05-08 08:26] LABS: Differential Comment SCANNED
[2023-05-08] MEDS: guaiFENesin 600 MG Tablet PO ×2 (09:50→22:49)
[2023-05-08] MEDS: Finasteride 5 MG Tablet PO (09:50)
[2023-05-08] MEDS: amLODIPine 5 MG Tablet PO (09:50)
[2023-05-08] MEDS: Isosorbide Mononitrate 30 MG Tablet PO (09:50)
[2023-05-08] MEDS: Pantoprazole Sodium 40 MG Tablet PO (09:51)
[2023-05-08] MEDS: Loratadine 10 MG Tablet 5 MG PO (09:51)
[2023-05-08] MEDS: Doxycycline 100 MG CAPSULE PO ×2 (09:51→22:49)
[2023-05-08] MEDS: Clopidogrel Bisulfate 75 MG Tablet PO (09:52)
[2023-05-08] MEDS: busPIRone 5 MG Tablet PO ×2 (09:52→22:49)
[2023-05-08] MEDS: dexAMETHasone 10 MG/ML Vial 6 MG IV (09:53)
[2023-05-08] MEDS: Furosemide 40 MG/4 ML Vial IV ×2 (09:53→17:49)
[2023-05-08] MEDS: Heparin Injection (Vial) 5,000 UNIT/ML VIAL 5000 UNIT SC ×2 (09:54→22:53)
[2023-05-08] MEDS: Fluticasone 0.05% 1 SPRAY NASAL.SRY NASAL (09:54)
[2023-05-08] MEDS: Menthol/Lanolin/Calamine/Znox 113 GM Tube 1 APPLIC TOPICAL (10:00)
[2023-05-08] MEDS: 0.9% Saline Lock 10 ML Syringe IV (10:01)
[2023-05-08] MEDS: Aspirin E.C. 81 MG Tablet PO (10:03)
--- NOTE | 2023-05-08 10:46 | CON.PCM.RE_ITS ---
Documented by User: ANDI Martell 05/08/23 10:55 Assessment & Plan Assessment/Plan (1) End stage renal disease: (2) Hypoxia: (3) COVID: (4) Chronic anemia: PLAN: Plan This is an 82-year-old male with past medical history significant for ESRD on hemodialysis Sunday at [facility] [place] followed by Dr. Laura, last dialyzed yesterday, history of coronary artery disease, peripheral arterial disease, hypertension, congestive heart failure (last echo September 2022 with normal LV size, EF 20%, severe global LV systolic dysfunction, moderate concentric LVH), ALY who presented to the emergency room yesterday after dialysis with complaints of cough, wheezing and dyspnea. Patient tested positive for COVID, chest x-ray showed patchy bilateral infiltrates, small pleural effusions. Patient was admitted for further evaluation and treatment. Nephrology consulted for hemodialysis management. Patient has history of ESRD on hemodialysis Sunday. No acute indication for LITHOSTRIPPER today, will plan for dialysis tomorrow with fluid removal as patient/blood pressure will tolerate. Will obtain patient's outpatient hemodialysis orders tomorrow from his kidney center. Admitted for hypoxia, positive COVID; per patient his breathing is better. He is receiving breathing events, IV steroids and remdesivir. Patient has history of anemia of chronic disease; will monitor hemoglobin trends and give JUAN CARLOS with hemodialysis. Thank you for allowing us to participate in the care of Mr. Tomas, further orders forthcoming as hospitalization evolves. HPI Consult Data Date of Consult: 05/08/23 HPI Narrative HPI Narrative: ARIANNA GUILLERMO, is a 82 M with past medical history significant for ESRD on he modialysis Sunday at [facility] followed by Dr. Laura, last dialyzed yesterday, history of coronary artery disease, peripheral arterial disease, hypertension, congestive heart failure (last echo September 2022 with normal LV size, EF 20%, severe global LV systolic dysfunction, moderate concentric LVH), ALY who presented to the emergency room yesterday after dialysis with complaints of cough, wheezing and dyspnea. Patient tested positive for COVID, chest x-ray showed patchy bilateral infiltrates, small pleural effusions. Patient was admitted for further evaluation and treatment. Nephrology consulted for hemodialysis needs. This morning patient is alert to name, having difficult time recalling recent events. Denies any shortness of breath or chest pain. He is on room air. [facility] Medical History Abnormal electrocardiogram Abnormal nuclear stress test Acute renal insufficiency Angina pectoris Arthritis Atherosclerosis of havasupai coronary artery of havasupai heart without angina pectoris Benign essential hypertension Benign prostatic hypertrophy without lower urinary tract symptoms BMI 40.0-44.9, adult Breast mass, left Chest pain Chest pain on exertion Chronic kidney disease Chronic renal failure, stage 3 (moderate) Coronary artery disease Diastolic heart failure Essential hypertension Fatigue Gastroesophageal reflux disease Hyperlipidemia Hypertension Hypokalemia Long-term use of high-risk medication Melanotic stools Normochromic normocytic anemia ALY (obstructive sleep apnea) Pulmonary hypertension Shortness of breath Sinus bradycardia Skin lesion Home Medications finasteride 5 mg tablet 5 mg PO 1200 PROSTATE 04/01/14 [History Last Taken 05/06/23] nitroglycerin 0.4 mg sublingual tablet 0.4 mg sublingual Q5M PRN Chest Pain 02/01/15 [History Last Taken 02/27/15] acetaminophen 325 mg capsule 650 mg PO TID pain/fever 02/20/18 [History Last Taken 05/07/23] levothyroxine 50 mcg tablet 50 mcg PO 1200 THYROID 05/02/18 [History Last Taken 05/04/23] loratadine 10 mg tablet 10 mg PO DAILY ALLERGIES 10/03/18 [History Last Taken 05/06/23] tamsulosin 0.4 mg capsule (Flomax) 0.4 mg PO 1700 PROSTATE 04/02/19 [History Last Taken 05/06/23] buspirone 5 mg tablet 5 mg PO BID ANXIETY 12/25/19 [History Last Taken 05/07/23] fluticasone propionate 50 mcg/actuation nasal spray,suspension (Allergy Relief (fluticasone)) 1 spray intranasal 1200 NASAL CONGESTION 05/05/22 [History Last Taken 05/04/23] guaifenesin 600 mg tablet, extended release 12 hr (Mucinex) 600 mg PO BID MUCUS RELIEF 05/05/22 [History Last Taken Unknown] montelukast 10 mg tablet 10 mg PO QHS ALLERGIES 05/05/22 [History Last Taken 0 05/06/23] omega 5-jjx-szz-fish oil 60 mg-90 mg-500 mg capsule (Fish Oil) 1 cap PO BID SUPPLEMENT 05/05/22 [History Last Taken 05/07/23] pantoprazole 40 mg tablet,delayed release 40 mg PO 1200 ACID REFLUX 05/05/22 [History Last Taken 05/04/23] amlodipine 5 mg tablet 5 mg PO DAILY BLOOD PRESSURE 05/07/23 [History Last Taken 05/04/23] aspirin 81 mg tablet,delayed release 81 mg PO 1200 HEART HEALTH 05/07/23 [History Last Taken 05/04/23] clopidogrel 75 mg tablet 75 mg PO 1200 BLOOD THINNER 05/07/23 [History Last Taken 05/06/23] doxycycline monohydrate 100 mg capsule 100 mg PO BID 05/07/23 [History Last Taken 05/07/23] hydromorphone 4 mg tablet 4 mg PO Q4H PRN PAIN 05/07/23 [History Last Taken 12/21] multivitamin-iron 9 mg-folic acid 400 mcg-calcium and minerals tablet (Thera-M) 1 tab PO 1200 SUPPLEMENT 05/07/23 [History Last Taken 05/05/23] pravastatin 20 mg tablet 20 mg PO 1700 CHOLESTEROL 05/07/23 [History Last Taken 05/06/23] propylene glycol 0.6 % eye drops (Systane Complete) 1 drp ophthalmic (eye) BID EYE LUBRICANT 05/07/23 [History Last Taken 05/06/23] torsemide 20 mg tablet 20 mg PO DAILY EDEMA 05/07/23 [History Last Taken 05/06/23] vit C 250 mg-vit E 90 mg-zinc 40 mg-copper 1 nm-tgttxo-cqpmzn capsule (PreserVision AREDS-2) 1 tab PO BID SUPPLEMENT 05/07/23 [History Last Taken 05/06/23] Allergy/AdvReac Type Severity Reaction Status Date / Time doxazosin mesylate Allergy Hives Verified 05/07/23 12:11 [From Cardura] fosinopril sodium Allergy Hives Verified 05/07/23 12:11 [From Monopril] lisinopril Allergy Hives Verified 05/07/23 12:11 morphine Allergy Other Verified 05/07/23 12:11 Family History Father Hypertension Cancer Brother CAD (coronary artery disease) Mother Hypertension Sister Hypertension Son Atrial fibrillation Surgical History history fistulogram (~07/27/17) History of angioplasty History of bilateral hip arthroplasty History of left breast biopsy (~06/2018) 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 S/P peripheral artery angioplasty (~03/2022) Status post right partial knee replacement Social History (Updated 05/07/23 @ 19:[address] Agueda Cope MD) household members: none housing: detention Smoking Status: Former smoker Tobacco: How many years used: 20 second hand exposure: No alcohol intake: never substance use type: does not use caffeine: No what type of physical activity do you participate in: none ROS ROS Narrative As in HPI and past medical history Physical Exam Narrative Alert to name and place. No acute distress S1, S2, RRR Lung sounds clear anteriorly. Diminished breath sounds posterior bases, no rales or rhonchi. No audible wheezing Abdomen soft, nontender Trace edema bilateral lower legs Left arm AV fistula positive thrill and bruit Lab / Micro Data 05/08/23 06:25 05/08/23 06:25 Labs: Laboratory Results - last 24 hr 05/07/23 12:23: WBC 7.7, RBC 4.03 L, Hgb 11.7 L, Hct 37.1 L, MCV 92.1, MCH 29.0, MCHC 31.5 L, RDW Std Deviation 49.3 H, RDW Coeff of Colleen 14.6, Plt Count 205, MPV 10.5, Immature Gran % (Auto) 0.500, Neut % (Auto) 76.8 H, Lymph % (Auto) 10.4 L, [place] % (Auto) 11.2 H, Eos % (Auto) 0.6, Baso % (Auto) 0.5, Absolute Neuts (auto) 5.9, Absolute Lymphs (auto) 0.80 L, Nucleated RBC % 0, D-Dimer Quant (PE/DVT) 0.90 H*, Sodium 139, Potassium 3.6, Chloride 98, Carbon Dioxide 34.0 H, Anion Gap 7, BUN 26 H, Creatinine 3.88 H, Estim Creat Clear Calc 13.71, Est GFR (MDRD) Af Amer 19 L, Est GFR (MDRD) Non-Af 16 L, BUN/Creatinine Ratio 6.7 L, Glucose 139 H, Calcium 10.3 H, Phosphorus 2.6, Magnesium 2.1, Ferritin 1414 H, Lactate Dehydrogenase 181, Total Creatine Kinase 23 L, Troponin I High Sens 99 H, C- React Prot Ext Range 68.20 H 05/07/23 12:40: B-Natriuretic Peptide 1226.4 H 05/07/23 16:59: ESR 23 H 05/07/23 18:55: Troponin I High Sens 94 H, Procalcitonin 0.50 H 05/07/23 20:50: Troponin I High Sens 105 H 05/08/23 00:45: Troponin I High Sens 113 H 05/08/23 06:25: WBC 5.2, RBC 3.21 L, Hgb 9.4 L, Hct 29.8 L, MCV 92.8, MCH 29.3, MCHC 31.5 L, RDW Std Deviation 49.3 H, RDW Coeff of Colleen 14.6, Plt Count 194, MPV 10.5, Immature Gran % (Auto) 0.200, Neut % (Auto) 80.8 H, Lymph % (Auto) 9.6 L, [place] % (Auto) 9.2, Eos % (Auto) 0.0, Baso % (Auto) 0.2, Absolute Neuts (auto) 4.2, Absolute Lymphs (auto) 0.50 L, Nucleated RBC % 0, Differential Comment SCANNED, Sodium 138, Potassium 4.2, Chloride 101, Carbon Dioxide 32.0, Anion Gap 5, BUN 42 H, Creatinine 5.09 H, Estim Creat Clear Calc 10.80, Est GFR (MDRD) Af Amer 14 L, Est GFR (MDRD) Non-Af 12 L, BUN/Creatinine Ratio 8.3 L, Glucose 197 H , Calcium 9.5, Total Bilirubin 0.50, AST 12 L, ALT 13 L, Alkaline Phosphatase 75, Total Protein 6.3 L, Albumin 2.8 L, Globulin 3.5, Albumin/Globulin Ratio 0.8 L, Triglycerides 107, Cholesterol 125, LDL Cholesterol 66, VLDL Cholesterol 21, HDL Cholesterol 38 L, TSH 2.85 Micro: Microbiology 05/07/23 12:38 Mucosa - Nose SARS-CoV-2, Influenza & RSV (PCR) - Final SARS-CoV-2 (COVID 19 PCR) Rhythm Strip Rhythm Strip: Sinus Tach Rate: 101 Ectopy: None Imagaing Radiology Impression Chest X-Ray 05/07/23 12:27 IMPRESSION: 1. Patchy bilateral infiltrates worse in the right lower lung could be due to pneumonia or edema. 2. Small bilateral pleural effusions. Electronically Signed: Eric Galloway MD at 13:31 EST , Documented by User: Dr. Josey Moyer MD 05/08/23 15:12 Assessment & Plan Assessment/Plan (1) End stage renal disease: (2) Hypoxia: (3) COVID: (4) Chronic anemia: PLAN: Plan This is an 82-year-old male with past medical history significant for ESRD on hemodialysis Sunday at [facility] [place] followed by Dr. Laura, last dialyzed yesterday, history of coronary artery disease, peripheral arterial disease, hypertension, congestive heart failure (last echo September 2022 with normal LV size, EF 20%, severe global LV systolic dysfunction, moderate concentric LVH), ALY who presented to the emergency room yesterday after dialysis with complaints of cough, wheezing and dyspnea. Patient tested positive for COVID, chest x-ray showed patchy bilateral infiltrates, small pleural effusions. Patient was admitted for further evaluation and treatment. Nephrology consulted for hemodialysis management. Patient has history of ESRD on hemodialysis Sunday. No acute indication for LITHOSTRIPPER today, will plan for dialysis tomorrow with fluid removal as patient/blood pressure will tolerate. Will obtain patient's outpatient hemodialysis orders tomorrow from his kidney center. Admitted for hypoxia, positive COVID; per patient his breathing is better. He is receiving breathing events, IV steroids and remdesivir. Patient has history of anemia of chronic disease; will monitor hemoglobin trends and give JUAN CARLOS with hemodialysis. Thank you for allowing us to participate in the care of Mr. Tomas, further orders forthcoming as [facility]. Nephrology attending: The patient is seen/examined. I agree with JOSE ROBERTO's assessment and plan as documented above. The patient is a 82-year-old man with history of ESRD, hypertension, CAD, combined systolic and diastolic dysfunction, ALY, PAD, hypothyroidism, and BPH. The patient presented to hospital on 05/07/2023 with 1 day history of dyspnea, cough, and chills. He was diagnosed with COVID-19 and superimposed bacterial pneumonia. The patient was admitted to hospital with acute hypoxic respiratory failure due to LRTI and volume overload. Nephrology is following for ESRD. The patient dialyzes at [facility] dialysis unit in [place]. We will arrange for dialysis on his usual schedule tomorrow. We will keep O> I with dialysis. Kwasi Pugh MD HPI Consult Data Date of Consult: 05/08/23 [facility] Medical History Abnormal electrocardiogram Abnormal nuclear stress test Acute renal insufficiency Angina pectoris Arthritis Atherosclerosis of havasupai coronary artery of havasupai heart without angina pectoris Benign essential hypertension Benign prostatic hypertrophy without lower urinary tract symptoms BMI 40.0-44.9, adult Breast mass, left Chest pain Chest pain on exertion Chronic kidney disease Chronic renal failure, stage 3 (moderate) Coronary artery disease Diastolic heart failure Essential hypertension Fatigue Gastroesophageal reflux disease Hyperlipidemia Hypertension Hypokalemia Long-term use of high-risk medication Melanotic stools Normochromic normocytic anemia ALY (obstructive sleep apnea) Pulmonary hypertension Shortness of breath Sinus bradycardia Skin lesion Home Medications finasteride 5 mg tablet 5 mg PO 1200 PROSTATE 04/01/14 [History Last Taken 05/06/23] nitroglycerin 0.4 mg sublingual tablet 0.4 mg sublingual Q5M PRN Chest Pain 02/01/15 [History Last Taken 02/27/15] acetaminophen 325 mg capsule 650 mg PO TID pain/fever 02/20/18 [History Last Taken 05/07/23] levothyroxine 50 mcg tablet 50 mcg PO 1200 THYROID 05/02/18 [History Last Taken 05/04/23] loratadine 10 mg tablet 10 mg PO DAILY ALLERGIES 10/03/18 [History Last Taken 05/06/23] tamsulosin 0.4 mg capsule (Flomax) 0.4 mg PO 1700 PROSTATE 04/02/19 [History Last Taken 05/06/23] buspirone 5 mg tablet 5 mg PO BID ANXIETY 12/25/19 [History Last Taken 05/07/23] fluticasone propionate 50 mcg/actuation nasal spray,suspension (Allergy Relief (fluticasone)) 1 spray intranasal 1200 NASAL CONGESTION 05/05/22 [History Last Taken 05/04/23] guaifenesin 600 mg tablet, extended release 12 hr (Mucinex) 600 mg PO BID MUCUS RELIEF 05/05/22 [History Last Taken Unknown] montelukast 10 mg tablet 10 mg PO QHS ALLERGIES 05/05/22 [History Last Taken 05/06/23] omega 1-kya-jjq-fish oil 60 mg-90 mg-500 mg capsule (Fish Oil) 1 cap PO BID SUPPLEMENT 05/05/22 [History Last Taken 05/07/23] pantoprazole 40 mg tablet,delayed release 40 mg PO 1200 ACID REFLUX 05/05/22 [History Last Taken 05/04/23] amlodipine 5 mg tablet 5 mg PO DAILY BLOOD PRESSURE 05/07/23 [History Last Taken 05/04/23] aspirin 81 mg tablet,delayed release 81 mg PO 1200 HEART HEALTH 05/07/23 [History Last Taken 05/04/23] clopidogrel 75 mg tablet 75 mg PO 1200 BLOOD THINNER 05/07/23 [History Last Taken 05/06/23] doxycycline monohydrate 100 mg capsule 100 mg PO BID 05/07/23 [History Last Taken 05/07/23] hydromorphone 4 mg tablet 4 mg PO Q4H PRN PAIN 05/07/23 [History Last Taken 05/07/23] multivitamin-iron 9 mg-folic acid 400 mcg-calcium and minerals tablet (Thera-M) 1 tab PO 1200 SUPPLEMENT 05/07/23 [History Last Taken 05/05/23] pravastatin 20 mg tablet 20 mg PO 1700 CHOLESTEROL 05/07/23 [History Last Taken 05/06/23] propylene glycol 0.6 % eye drops (Systane Complete) 1 drp ophthalmic (eye) BID EYE LUBRICANT 05/07/23 [History Last Taken 05/06/23] torsemide 20 mg tablet 20 mg PO DAILY EDEMA 05/07/23 [History Last Taken 05/06/23] vit C 250 mg-vit E 90 mg-zinc 40 mg-copper 1 mi-lpmrze-uatuyn capsule (Preser Vision AREDS-2) 1 tab PO BID SUPPLEMENT 05/07/23 [History Last Taken 05/06/23] Allergy/AdvReac Type Severity Reaction Status Date / Time doxazosin mesylate Allergy Hives Verified 05/07/23 12:11 [From Cardura] fosinopril sodium Allergy Hives Verified 05/07/23 12:11 [From Monopril] lisinopril Allergy Hives Verified 05/07/23 12:11 morphine Allergy Other Verified 05/07/23 12:11 Family History Father Hypertension Cancer Brother CAD (coronary artery disease) Mother Hypertension Sister Hypertension Son Atrial fibrillation Surgical History history fistulogram (~07/27/17) History of angioplasty History of bilateral hip arthroplasty History of left breast biopsy (~06/2018) 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 S/P peripheral artery angioplasty (~03/2022) Status post right partial knee replacement Social History (Updated 05/07/23 @ 19:[address] Agueda Cope MD) household members: none housing: detention Smoking Status: Former smoker Tobacco: How many years used: 20 second hand exposure: No alcohol intake: never substance use type: does not use caffeine: No what type of physical activity do you participate in: none Lab / Micro Data 05/08/23 06:25 05/08/23 06:25
--- NOTE | 2023-05-08 11:06 | CASEMGMT ---
Discharge Planning Updates faxed to [facility]. Stephanie Solo, Discharge Planning Asst.
--- NOTE | 2023-05-08 18:25 | PN.HOSP_ITS ---
Reason for Visit Reason for Visit: Diagnoses Anemia, unspecified (05/07/23) End stage renal disease (05/07/23) Hypoxemia (05/07/23) COVID-19 (05/07/23) Subjective Subjective Patient sitting comfortably in bedside chair this morning, breathing comfortably on room air at rest, no acute distress. Patient reports mild cough with clearish sputum production and continued mild dyspnea on exertion. Denies any fevers/chills, chest pain. Denies any wheezing. No other acute concerns. Objective Data Objective Data Vital Signs: Vital Signs Temp Pulse Resp BP Pulse Ox O2 Del Method O2 Flow Rate 98.9 F 73 17 130/68 H 95 Room Air 87 05/08/23 15:22 05/08/23 15:22 05/08/23 15:22 05/08/23 15:22 05/08/23 15:22 05/08/23 15:22 05/08/23 13:52 Oxygen Flow Rate (L/min) 87 Oxygen Delivery Method Room Air Weight: 106.2 kg Body Mass Index (BMI) 34.0 Intake & Output: Intake and Output for Last 24 Hours 05/06/23 05/07/23 05/08/23 23:59 23:59 23:59 Intake Total 370 / 370 480 / 480 Output Total 200 / 200 Balance 170 / 170 480 / 480 Lab / Micro Data 05/08/23 06:25 05/08/23 06:25 Labs: Laboratory Results - last 24 hr 05/07/23 18:55: Troponin I High Sens 94 H, Procalcitonin 0.50 H 05/07/23 20:50: Troponin I High Sens 105 H 05/08/23 00:45: Troponin I High Sens 113 H 05/08/23 06:25: WBC 5.2, RBC 3.21 L, Hgb 9.4 L, Hct 29.8 L, MCV 92.8, MCH 29.3, MCHC 31.5 L, RDW Std Deviation 49.3 H, RDW Coeff of Colleen 14.6, Plt Count 194, MPV 10.5, Immature Gran % (Auto) 0.200, Neut % (Auto) 80.8 H, Lymph % (Auto) 9.6 L, [place] % (Auto) 9.2, Eos % (Auto) 0.0, Baso % (Auto) 0.2, Absolute Neuts (auto) 4.2, Absolute Lymphs (auto) 0.50 L, Nucleated RBC % 0, Differential Comment SCANNED, Sodium 138, Potassium 4.2, Chloride 101, Carbon Dioxide 32.0, Anion Gap 5, BUN 42 H, Creatinine 5.09 H, Estim Creat Clear Calc 10.80, Est GFR (MDRD) Af Amer 14 L, Est GFR (MDRD) Non-Af 12 L, BUN/Creatinine Ratio 8.3 L, Glucose 197 H , Calcium 9.5, Total Bilirubin 0.50, AST 12 L, ALT 13 L, Alkaline Phosphatase 75, Total Protein 6.3 L, Albumin 2.8 L, Globulin 3.5, Albumin/Globulin Ratio 0.8 L, Triglycerides 107, Cholesterol 125, LDL Cholesterol 66, VLDL Cholesterol 21, HDL Cholesterol 38 L, TSH 2.85 Micro: Microbiology 05/07/23 12:38 Mucosa - Nose SARS-CoV-2, Influenza & RSV (PCR) - Final SARS-CoV-2 (COVID 19 PCR) Rhythm Strip Rhythm Strip: Sinus Tach Rate: 101 Ectopy: None Physical Exam Const alert, oriented x3 and no apparent distress General Appearance: cooperative and comfortable HEENT normocephalic, head/scalp atraumatic, hearing grossly normal bilaterally, nasal mucous membranes and turbinates normal and moist oral mucous membranes Eyes PERRL, EOMs intact bilaterally and conjunctivae normal Neck full ROM, no lymphadenopathy and supple Lymph Lymphatic: no lymphadenopathy noted Chest inspection of chest normal Resp normal respiratory effort and no use of accessory muscles Resp Narrative: Mild crackles noted bilaterally, no wheezing noted. Cardio regular rate, regular rhythm, no murmurs and peripheral pulses 2+ throughout GI normal to inspection, nondistended, normoactive bowel sounds, soft to palpation, non-tender and non-distended Back/Spine normal ROM Extremity normal to inspection, full ROM and no pedal edema Skin no rashes or lesions noted Neuro no focal motor deficits and no sensory deficits noted Speech: speech normal Psych mental status grossly normal Assessment & Plan Assessment/Plan (1) End stage renal disease: (2) Hypoxia: (3) COVID: (4) History of heart failure: PLAN: Plan Patient is a 82yo male who presented to [facility] ED on 05/07/2023 with worsening dyspnea on exertion. 1. Acute hypoxia, resolved - Suspect primarily secondary to mild volume overload from heart failure, along with COVID infection. CXR on admit showed patchy bilateral infiltrates worse in right lower lung, small b/l pleural effusions. Stable on room air on hospital day 2. Treating HF and COVID as noted below. 2. Acute on chronic combined heart failure - Echo 09/2022 showed EF 20%, severe global LV systolic dysfunction, moderate concentric LVH, global longitudinal strain; EF notably had worsened from previous TTE. Will deescalate to po diuretics on 05/09. Planning for increased volume removal with HD on 05/09. Monitor. 3. COVID-19 infection - COVID positive in ED. CXR as noted above. Mildly hypoxic on admit. Will treat w/ IV decadron and remdesivir for now. Monitor. 4. Elevated troponins - Suspected demand ischemia. No chest pain or EKG changes. Treating HF and COVID as noted above. 5. Debility - Patient reports he has lived in long term for last 5-6 years. PT/OT/CM consulted. Planning on return to long term on discharge. 6. ESRD on HD MWF - Nephrology following. Last HD on 05/07. Planning for HD 05/09 with added volume removal. Chronic medical conditions: - CAD/PAD/HLD: Continue home plavix, statin. - HTN: Continue home amlodipine, deescalated to PO lasix as noted above. - Chronic normocytic anemia: Hgb at baseline, stable. - Hypothyroidism: Continue home Synthroid. - BPH: Continue home Flomax and finasteride. - Anxiety: Continue home buspar. - GERD: Continue home PPI. DVT ppx: heparin subcu Code status: DNRCCA, DNI Expected disposition: Back to long term, 1-2 days Total clinical time spent by myself addressing the patient's medical issues, reviewing all the data, and collaborating with patient's care team: 35 minutes. Charges/Coding Visit Charges Inpatient E&M: 27353 Subs Hosp L2
--- NOTE | 2023-05-08 20:18 | CPS ---
Pt stated he does not wear bipap at home anymore and doesn't want to wear while in the hospital either
[2023-05-08] MEDS: Montelukast 10 MG Tablet PO (22:49)
[2023-05-08] MEDS: Tamsulosin HCl 0.4 MG Capsule 0.400000000000000022 MG PO (22:49)
[2023-05-08] MEDS: Pravastatin 20 MG Tablet PO (22:49)
[2023-05-08] MEDS: Remdesivir 100 MG in 0.9% Normal Saline (250mL Bag) 230 ML 250 MG IV (23:09)
[2023-05-09] VITALS (11 sets, daily range): BP systolic 149–264; BP diastolic 76–103; PULSE 68–87; RESP 16–19; TEMP 36.6–36.7; O2SAT 96–100; BMI 34.2; BMI 33.3
[2023-05-09] MEDS: Levothyroxine 50 MCG Tablet PO (05:58)
[2023-05-09] MEDS: PureFlow B 2K Dialysis Soln 1 BAG 6 BAG PF (08:10)
[2023-05-09] MEDS: 0.9% Normal Saline 1,000 ML IV.SOLN. 1000 ML OPERA.SITE (08:10)
[2023-05-09 08:45] LABS: Hematocrit 29.7 % (40-54); Hemoglobin 9.3 g/dL (13.0-16.5); Mean Corp Hgb Conc 31.3 g/dL (32-36); Mean Corpuscular Hgb 28.4 pg (27.0-32.0); Mean Corpuscular Volume 90.5 fL (80-94); Mean Platelet Vol. 10.4 fl (6.2-12.0); Platelet Count 198 K/mm3 (150-450); RBC Distribution Width CV 14.4 % (11.6-14.6); RBC Distribution Width SD 47.7 fl (35.1-43.9); Red Blood Count 3.28 M/mm3 (4.6-6.2); White Blood Count 8.7 K/mm3 (4.4-11.0)
--- NOTE | 2023-05-09 09:04 | CASEMGMT ---
Addendum entered by Stephanie Solo 05/09/23 10:23: [facility] confirmed patient is able to return. They asked for PT/OT to be on discharge orders. SW updated. Stephanie Solo, Discharge Planning Asst. Original Note: Discharge Planning Updates, including PT/OT evals, faxed to [facility]. Asked for confirmation that patient is able to return. Stephanie Solo, Discharge Planning Asst.
[2023-05-09 09:23] LABS: Anion Gap 9 (5-15); BUN 57 mg/dL (7-18); BUN/Creat Ratio 11.4 RATIO (10-20); Calcium,Total 9.8 mg/dL (8.5-10.1); Chloride 101 mmol/L (98-107); Creatinine, Serum 5.02 mg/dL (0.70-1.30); EST Glomerular Filtration Rate 12 mL/min (>60); Est Glom Filt Rate - Afr Amer 14 mL/min (>60); Estimated Creatinine Clearance 13.22 ml/min; Glucose 171 mg/dL (74-106); Potassium 3.3 mmol/L (3.5-5.1); Sodium Level 137 mmol/L (136-145)
--- NOTE | 2023-05-09 09:47 | NURSING ---
based on am labs, pureflow solution changed to 3k bath per physician
[2023-05-09] MEDS: Clopidogrel Bisulfate 75 MG Tablet PO (10:03)
[2023-05-09] MEDS: predniSONE 20 MG Tablet 40 MG PO (10:03)
[2023-05-09] MEDS: Loratadine 10 MG Tablet 5 MG PO (10:04)
[2023-05-09] MEDS: busPIRone 5 MG Tablet PO (10:04)
[2023-05-09] MEDS: Doxycycline 100 MG CAPSULE PO (10:04)
[2023-05-09] MEDS: Isosorbide Mononitrate 30 MG Tablet PO (10:05)
[2023-05-09] MEDS: amLODIPine 5 MG Tablet PO (10:05)
[2023-05-09] MEDS: Pantoprazole Sodium 40 MG Tablet PO (10:06)
[2023-05-09] MEDS: guaiFENesin 600 MG Tablet PO (10:06)
[2023-05-09] MEDS: Finasteride 5 MG Tablet PO (10:06)
[2023-05-09] MEDS: Heparin Injection (Vial) 5,000 UNIT/ML VIAL 5000 UNIT SC (10:12)
[2023-05-09] MEDS: Aspirin E.C. 81 MG Tablet PO (10:42)
[2023-05-09] MEDS: CARBOXYMETHYLCELLULOSE SODIUM 1 DRP DROPS OPHTHALMIC (11:42)
[2023-05-09] MEDS: Furosemide 40 MG Tablet PO (11:42)
[2023-05-09] MEDS: Fluticasone 0.05% 1 SPRAY NASAL.SRY NASAL (11:42)
--- NOTE | 2023-05-09 12:45 | DCINST_ITS ---
Discharge Instructions Diet Discharge Diet: No restrictions Activity Discharge Activity: No Restrictions Weight Bearing Status: Full weight bearing Follow Up Care Test Results: Test results from this visit will be discussed in further detail at your follow- up appointment, if applicable. Discharge Plan Admission Admit Date/Time: 05/07/23 16:38 Primary Reason for Your Visit: worsening shortness of breath Attending Provider: Moiz Álvarez Primary Care Provider: Germania Penn DIRECTOR OF DIETARY Consulting Providers: Kirstin Mullins; Agueda Cope Discharge Orders/Prescriptions Prescriptions: Continued acetaminophen 325 mg capsule 650 mg PO TID loratadine 10 mg tablet 10 mg PO DAILY levothyroxine 50 mcg tablet 50 mcg PO 1200 tamsulosin [Flomax] 0.4 mg capsule 0.4 mg PO 1700 buspirone 5 mg tablet 5 mg PO BID Rx Instructions: TAKE 1 TABLET BY MOUTH TWICE DAILY AT 5AM AND AT BEDTIME omega 1-twi-bps-fish oil [Fish Oil] 60-90-500 mg capsule 1 cap PO BID pantoprazole 40 mg tablet,delayed release (DR/EC) 40 mg PO 1200 guaifenesin [Mucinex] 600 mg tablet extended release 12hr 600 mg PO BID Patient Comments: [place] [employer] fluticasone propionate [Allergy Relief (fluticasone)] 50 mcg/actuation spray,suspension 1 spray intranasal 1200 Rx Instructions: administer into each nostril montelukast 10 mg tablet 10 mg PO QHS finasteride 5 MG tablet 5 mg PO 1200 nitroglycerin 0.4 MG tablet 0.4 mg SUBLINGUAL Q5M PRN (Reason: Chest Pain) amlodipine 5 mg tablet 5 mg PO DAILY aspirin 81 mg tablet,delayed release (DR/EC) 81 mg PO 1200 hydromorphone 4 mg tablet 4 mg PO Q4H PRN (Reason: PAIN ) Systane Complete 0.6 % drops 1 drp ophthalmic (eye) BID torsemide 20 mg tablet 20 mg PO DAILY PreserVision AREDS-2 250-90-40-1 mg capsule 1 tab PO BID Thera-M 9 mg iron-400 mcg tablet 1 tab PO 1200 clopidogrel 75 MG tablet 75 mg PO 1200 pravastatin 20 mg tablet 20 mg PO 1700 Discontinued doxycycline monohydrate 100 mg capsule 100 mg PO BID Rx Instructions: TAKE 1 CAPSULE BY MOUTH TWICE DAILY FOR 10 DAYS. START:04/29/23 Referrals / Follow Up: Shankar Leon MD [Med Staff - Active Staff] - 05/30/23 2:30 pm Germania Penn DIRECTOR OF DIETARY, DIRECTOR OF DIETARY-C [Primary Care Provider] - Disposition Disposition (needs filled in before D/C Order can be placed): Assisted Living
--- NOTE | 2023-05-09 12:49 | PCM.DC.SUM ---
Providers Date of Admission: 05/07/23 Date of Discharge: 05/09/23 Primary Care Physician: Germania Penn, ARUN-C Consultations 05/07/23 17:48 Consult: Nephrology Routine Consulting Provider: Kirstin Mullins Reason for Consult: ESRD on HD, patient unsure but thinks Dr. Mullins group EMERGENT Consult: No MD Notified: Yes Date Notified: 05/07/23 Time Notified: 17:32 Method of Notification: Answering Service Reason For Visit: COVID, PNA, HYPOZIA, ELEVATED TROP Diagnosis Discharge Diagnosis (1) End stage renal disease: Status: Acute Code(s): N18.6 - End stage renal disease (2) Hypoxia: Status: Acute Code(s): R09.02 - Hypoxemia (3) COVID: Status: Acute Code(s): U07.1 - COVID-19 (4) History of heart failure: Status: Acute Code(s): Z86.79 - Personal history of other diseases of the circulatory system Plan Patient is a 82yo male who presented to [facility] ED on 05/07/2023 with worsening dyspnea on exertion. 1. Acute hypoxia, resolved - Suspect primarily secondary to mild volume overload from heart failure, along with COVID infection. CXR on admit showed patchy bilateral infiltrates worse in right lower lung, small b/l pleural effusions. Stable on room air on hospital day 2. Treating HF and COVID as noted below. 2. Acute on chronic combined heart failure - Echo 09/2022 showed EF 20%, severe global LV systolic dysfunction, moderate concentric LVH, global longitudinal strain; EF notably had worsened from previous TTE. Will deescalate to po diuretics on 05/09. Planning for increased volume removal with HD on 05/09. Monitor. 3. COVID-19 infection - COVID positive in ED. CXR as noted above. Mildly hypoxic on admit. Will treat w/ IV decadron and remdesivir for now. Monitor. 4. Elevated troponins - Suspected demand ischemia. No chest pain or EKG changes. Treating HF and COVID as noted above. 5. Debility - Patient reports he has lived in residential for last 5-6 years. PT/OT/CM consulted. Planning on return to residential on discharge. 6. ESRD on HD MWF - Nephrology following. Last HD on 05/07. Planning for HD 05/09 with added volume removal. Chronic medical conditions: - CAD/PAD/HLD: Continue home plavix, statin. - HTN: Continue home amlodipine, deescalated to PO lasix as noted above. - Chronic normocytic anemia: Hgb at baseline, stable. - Hypothyroidism: Continue home Synthroid. - BPH: Continue home Flomax and finasteride. - Anxiety: Continue home buspar. - GERD: Continue home PPI. DVT ppx: heparin subcu Code status: DNRCCA, DNI Expected disposition: Back to residential, 1-2 days Total clinical time spent by myself addressing the patient's medical issues, reviewing all the data, and collaborating with patient's care team: 35 minutes. Medications at Discharge Home Medications finasteride 5 mg tablet 5 mg PO 1200 PROSTATE 04/01/14 nitroglycerin 0.4 mg sublingual tablet 0.4 mg sublingual Q5M PRN Chest Pain 02/01/15 acetaminophen 325 mg capsule 650 mg PO TID pain/fever 02/20/18 levothyroxine 50 mcg tablet 50 mcg PO 1200 THYROID 05/02/18 loratadine 10 mg tablet 10 mg PO DAILY ALLERGIES 10/03/18 tamsulosin 0.4 mg capsule (Flomax) 0.4 mg PO 1700 PROSTATE 04/02/19 buspirone 5 mg tablet 5 mg PO BID ANXIETY 12/25/19 fluticasone propionate 50 mcg/actuation nasal spray,suspension (Allergy Relief (fluticasone)) 1 spray intranasal 1200 NASAL CONGESTION 05/05/22 guaifenesin 600 mg tablet, extended release 12 hr (Mucinex) 600 mg PO BID MUCUS RELIEF 05/05/22 montelukast 10 mg tablet 10 mg PO QHS ALLERGIES 05/05/22 omega 7-uyc-ywd-fish oil 60 mg-90 mg-500 mg capsule (Fish Oil) 1 cap PO BID SUPPLEMENT 05/05/22 pantoprazole 40 mg tablet,delayed release 40 mg PO 1200 ACID REFLUX 05/05/22 amlodipine 5 mg tablet 5 mg PO DAILY BLOOD PRESSURE 05/07/23 aspirin 81 mg tablet,delayed release 81 mg PO 1200 HEART HEALTH 05/07/23 clopidogrel 75 mg tablet 75 mg PO 1200 BLOOD THINNER 05/07/23 hydromorphone 4 mg tablet 4 mg PO Q4H PRN PAIN 05/07/23 multivitamin-iron 9 mg-folic acid 400 mcg-calcium and minerals tablet (Thera-M) 1 tab PO 1200 SUPPLEMENT 05/07/23 pravastatin 20 mg tablet 20 mg PO 1700 CHOLESTEROL 05/07/23 propylene glycol 0.6 % eye drops (Systane Complete) 1 drp ophthalmic (eye) BID EYE LUBRICANT 05/07/23 torsemide 20 mg tablet 20 mg PO DAILY EDEMA 05/07/23 vit C 250 mg-vit E 90 mg-zinc 40 mg-copper 1 [id number]-oqlktn-buxwqa capsule (PreserVision AREDS-2) 1 tab PO BID SUPPLEMENT 05/07/23 Hospital Course Operations None Procedures EKG and - (Chest x-ray) Summary of Care Provided Minutes Spent on Discharge: 35 Hospital Course: Patient is a 82yo male who presented to [facility] ED on 05/07/2023 with worsening dyspnea on exertion. 1. Acute hypoxia, resolved - Suspect primarily secondary to mild volume overload from heart failure, along with COVID infection. CXR on admit showed patchy bilateral infiltrates worse in right lower lung, small b/l pleural effusions. Stable on room air on hospital day 2. Treated HF and COVID as noted below. 2. Acute on chronic combined heart failure - Echo 09/2022 showed EF 20%, severe global LV systolic dysfunction, moderate concentric LVH, global longitudinal strain; EF notably had worsened from previous TTE. S/p HD on 05/09 with increased volume we will. De-escalated to home p.o. diuretics on 05/09, will continue on discharge. 3. COVID-19 infection - COVID positive in ED. CXR as noted above. Mildly hypoxic on admit, improved quickly as noted above. Given 2 doses of IV Decadron and remdesivir, given patient improved significantly and is off oxygen, discontinued these medications on discharge. 4. Elevated troponins - Suspected demand ischemia. No chest pain or EKG changes. Treated HF and COVID as noted above. 5. Debility - Patient reports he has lived in residential for last 5-6 years. PT/OT/CM followed. Returned to residential on discharge. 6. ESRD on HD MWF - Nephrology followed. HD in 05/09 with additional volume removal as noted above. Continue normal HD schedule on discharge. Chronic medical conditions: - CAD/PAD/HLD: Continue home plavix, statin. - HTN: Continue home amlodipine, deescalated to PO lasix as noted above. - Chronic normocytic anemia: Hgb at baseline, stable. - Hypothyroidism: Continue home Synthroid. - BPH: Continue home Flomax and finasteride. - Anxiety: Continue home buspar. - GERD: Continue home PPI. Total clinical time spent by myself addressing the patient's discharge needs: 35 minutes. Physical Exam Const alert, oriented x3 and no apparent distress General Appearance: cooperative and comfortable HEENT normocephalic, head/scalp atraumatic, hearing grossly normal bilaterally, nasal mucous membranes and turbinates normal and moist oral mucous membranes Eyes PERRL, EOMs intact bilaterally and conjunctivae normal Neck full ROM, no lymphadenopathy and supple Lymph Lymphatic: no lymphadenopathy noted Chest inspection of chest normal Resp normal respiratory effort and no use of accessory muscles Resp Narrative: Mild crackles noted bilaterally, no wheezing noted. Cardio regular rate, regular rhythm, no murmurs and peripheral pulses 2+ throughout GI normal to inspection, nondistended, normoactive bowel sounds, soft to palpation, non-tender and non-distended Back/Spine normal ROM Extremity normal to inspection, full ROM and no pedal edema Skin no rashes or lesions noted Neuro no focal motor deficits and no sensory deficits noted Speech: speech normal Psych mental status grossly normal Weight / BMI Weight Weight: 104 kg Body Mass Index (BMI) 33.3 ABG / Lab / Microbiology Data 05/09/23 08:37 05/09/23 08:37 Laboratory: Laboratory Results - last 24 hr 05/09/23 08:37: WBC 8.7, RBC 3.28 L, Hgb 9.3 L, Hct 29.7 L, MCV 90.5, MCH 28.4, MCHC 31.3 L, RDW Std Deviation 47.7 H, RDW Coeff of Colleen 14.4, Plt Count 198, MPV 10.4, Sodium 137, Potassium 3.3 L, Chloride 101, Carbon Dioxide 27.0, Anion Gap 9, BUN 57 H, Creatinine 5.02 H, Estim Creat Clear Calc 13.22, Est GFR (MDRD) Af Amer 14 L, Est GFR (MDRD) Non-Af 12 L, BUN/Creatinine Ratio 11.4, Glucose 171 H, Calcium 9.8 Microbiology: Microbiology 05/07/23 12:38 Mucosa - Nose SARS-CoV-2, Influenza & RSV (PCR) - Final SARS-CoV-2 (COVID 19 PCR) D/C Instructions Discharge Diet: No restrictions Weight Bearing Status: Full weight bearing Meaningful Use Info Meaningful Use Diagnoses (Choose all that apply): None applicable Discharge Plan Admission Admit Date/Time: 05/07/23 16:38 Primary Reason for Your Visit: worsening shortness of breath Attending Provider: Moiz Álvarez Primary Care Provider: Germania Penn ARCHIVAL RECORDS CLERK Consulting Providers: Kirstin Mullins; Agueda Cope Discharge Orders/Prescriptions Prescriptions: Continued acetaminophen 325 mg capsule 650 mg PO TID loratadine 10 mg tablet 10 mg PO DAILY levothyroxine 50 mcg tablet 50 mcg PO 1200 tamsulosin [Flomax] 0.4 mg capsule 0.4 mg PO 1700 buspirone 5 mg tablet 5 mg PO BID Rx Instructions: TAKE 1 TABLET BY MOUTH TWICE DAILY AT 5AM AND AT BEDTIME omega 9-cnp-szn-fish oil [Fish Oil] 60-90-500 mg capsule 1 cap PO BID pantoprazole 40 mg tablet,delayed release (DR/EC) 40 mg PO 1200 guaifenesin [Mucinex] 600 mg tablet extended release 12hr 600 mg PO BID Patient Comments: [place] [employer] fluticasone propionate [Allergy Relief (fluticasone)] 50 mcg/actuation spray,suspension 1 spray intranasal 1200 Rx Instructions: administer into each nostril montelukast 10 mg tablet 10 mg PO QHS finasteride 5 MG tablet 5 mg PO 1200 nitroglycerin 0.4 MG tablet 0.4 mg SUBLINGUAL Q5M PRN (Reason: Chest Pain) amlodipine 5 mg tablet 5 mg PO DAILY aspirin 81 mg tablet,delayed release (DR/EC) 81 mg PO 1200 hydromorphone 4 mg tablet 4 mg PO Q4H PRN (Reason: PAIN ) Systane Complete 0.6 % drops 1 drp ophthalmic (eye) BID torsemide 20 mg tablet 20 mg PO DAILY PreserVision AREDS-2 250-90-40-1 mg capsule 1 tab PO BID Thera-M 9 mg iron-400 mcg tablet 1 tab PO 1200 clopidogrel 75 MG tablet 75 mg PO 1200 pravastatin 20 mg tablet 20 mg PO 1700 Discontinued doxycycline monohydrate 100 mg capsule 100 mg PO BID Rx Instructions: TAKE 1 CAPSULE BY MOUTH TWICE DAILY FOR 10 DAYS. START:04/29/23 Referrals / Follow Up: Shankar Leon MD [Med Staff - Active Staff] - 05/30/23 2:30 pm Germania Penn ARCHIVAL RECORDS CLERK, ARCHIVAL RECORDS CLERK-C [Primary Care Provider] - Disposition Disposition (needs filled in before D/C Order can be placed): Assisted Living Charges/Coding Visit Charges Inpatient E&M: 07090 Disch Hosp >30min
--- NOTE | 2023-05-09 13:29 | CASEMGMT ---
Patient is ready for discharge back to [facility]. SW spoke with patient. Introduced self and role at [facility] [place]. Patient stated he will need transportation back to [facility]. Plan: d/c back to [facility] assisted living. Anita RUELAS
--- NOTE | 2023-05-09 13:40 | CASEMGMT ---
Discharge Planning Discharge Instructions, therapy order, and transport time faxed to [facility]. Physicians will transport patient by wheelchair at 4p. Nursing and SW updated. VM left for patients son, Jacques. Stephanie Solo, Discharge Planning Asst.
[2023-05-09] MEDS: Loperamide 2 MG Capsule PO (13:58)
--- NOTE | 2023-05-09 14:42 | PCM.PN.REN ---
Subjective Subjective Sitting in chair. No overnight events. Underwent hemodialysis today and tolerated fluid removal. Patient is being discharged today Objective Data Objective Data Vital Signs: Vital Signs Temp Pulse Resp BP Pulse Ox O2 Del Method O2 Flow Rate 98.1 F 76 17 165/80 H 99 Nasal Cannula 2 05/09/23 03:12 05/09/23 11:18 05/09/23 11:18 05/09/23 11:18 05/09/23 11:18 05/09/23 11:18 05/09/23 11:18 Oxygen Flow Rate (L/min) 2 Oxygen Delivery Method Nasal Cannula Weight: 104 kg Body Mass Index (BMI) 33.3 Intake & Output: Intake and Output for Last 24 Hours 05/07/23 05/08/23 05/09/23 23:59 23:59 23:59 Intake Total 370 / 370 480 / 480 250 / 250 Output Total 200 / 200 150 / 150 3450 / 3450 Balance 170 / 170 330 / 330 -3200 / -3200 Lab / Micro Data 05/09/23 08:37 05/09/23 08:37 Labs: Laboratory Results - last 24 hr 05/09/23 08:37: WBC 8.7, RBC 3.28 L, Hgb 9.3 L, Hct 29.7 L, MCV 90.5, MCH 28.4, MCHC 31.3 L, RDW Std Deviation 47.7 H, RDW Coeff of Colleen 14.4, Plt Count 198, MPV 10.4, Sodium 137, Potassium 3.3 L, Chloride 101, Carbon Dioxide 27.0, Anion Gap 9, BUN 57 H, Creatinine 5.02 H, Estim Creat Clear Calc 13.22, Est GFR (MDRD) Af Amer 14 L, Est GFR (MDRD) Non-Af 12 L, BUN/Creatinine Ratio 11.4, Glucose 171 H, Calcium 9.8 Micro: Microbiology 05/07/23 12:38 Mucosa - Nose SARS-CoV-2, Influenza & RSV (PCR) - Final SARS-CoV-2 (COVID 19 PCR) Rhythm Strip Rhythm Strip: Sinus Tach Rate: 101 Ectopy: None Physical Exam Narrative Alert to name and place. No acute distress S1, S2, RRR Lung sounds clear anteriorly. Abdomen soft, nontender Trace edema bilateral lower legs Left arm AV fistula positive thrill and bruit Assessment & Plan Assessment/Plan (1) End stage renal disease: (2) Hypoxia: (3) COVID: (4) Chronic anemia: PLAN: Plan This is an 82-year-old male with past medical history significant for ESRD on hemodialysis Sunday at [facility] kidney [facility] followed by Dr. Laura, last dialyzed yesterday, history of coronary artery disease, peripheral arterial disease, hypertension, congestive heart failure (last echo September 2022 with normal LV size, EF 20%, severe global LV systolic dysfunction, moderate concentric LVH), ALY who presented to the emergency room yesterday after dialysis with complaints of cough, wheezing and dyspnea. Patient tested positive for COVID, chest x-ray showed patchy bilateral infiltrates, small pleural effusions. Patient was admitted for further evaluation and treatment. Nephrology consulted for hemodialysis management. - ESRD on hemodialysis Sunday. Patient underwent hemodialysis today over 3.5 hours and tolerated 3.5 L fluid removal. - positive COVID; per patient his breathing is better. To be discharged on Doxycycline - anemia of chronic disease; hemoglobin is 9.3. - Discharge planning in progress, patient to be discharged today. His next dialysis will be Sunday at his kidney center, [facility], followed by Dr. Laura.
--- NOTE | 2023-05-09 14:47 | PHA.DC.MR.R ---
Pharmacy [place] Med Reconciliation Pharmacy Service has performed discharge medication reconciliation for this patient. The patient's discharge medication list was reviewed for discrepancies and discrepancies were resolved. Medications at Discharge Home Medications finasteride 5 mg tablet 5 mg PO 1200 PROSTATE 04/01/14 nitroglycerin 0.4 mg sublingual tablet 0.4 mg sublingual Q5M PRN Chest Pain 02/01/15 acetaminophen 325 mg capsule 650 mg PO TID pain/fever 02/20/18 levothyroxine 50 mcg tablet 50 mcg PO 1200 THYROID 05/02/18 loratadine 10 mg tablet 10 mg PO DAILY ALLERGIES 10/03/18 tamsulosin 0.4 mg capsule (Flomax) 0.4 mg PO 1700 PROSTATE 04/02/19 buspirone 5 mg tablet 5 mg PO BID ANXIETY 12/25/19 fluticasone propionate 50 mcg/actuation nasal spray,suspension (Allergy Relief (fluticasone)) 1 spray intranasal 1200 NASAL CONGESTION 05/05/22 guaifenesin 600 mg tablet, extended release 12 hr (Mucinex) 600 mg PO BID MUCUS RELIEF 05/05/22 montelukast 10 mg tablet 10 mg PO QHS ALLERGIES 05/05/22 omega 2-lik-rzw-fish oil 60 mg-90 mg-500 mg capsule (Fish Oil) 1 cap PO BID SUPPLEMENT 05/05/22 pantoprazole 40 mg tablet,delayed release 40 mg PO 1200 ACID REFLUX 05/05/22 amlodipine 5 mg tablet 5 mg PO DAILY BLOOD PRESSURE 05/07/23 aspirin 81 mg tablet,delayed release 81 mg PO 1200 HEART HEALTH 05/07/23 clopidogrel 75 mg tablet 75 mg PO 1200 BLOOD THINNER 05/07/23 hydromorphone 4 mg tablet 4 mg PO Q4H PRN PAIN 05/07/23 multivitamin-iron 9 mg-folic acid 400 mcg-calcium and minerals tablet (Thera-M) 1 tab PO 1200 SUPPLEMENT 05/07/23 pravastatin 20 mg tablet 20 mg PO 1700 CHOLESTEROL 05/07/23 propylene glycol 0.6 % eye drops (Systane Complete) 1 drp ophthalmic (eye) BID EYE LUBRICANT 05/07/23 torsemide 20 mg tablet 20 mg PO DAILY EDEMA 05/07/23 vit C 250 mg-vit E 90 mg-zinc 40 mg-copper 1 es-lztrih-yygxzv capsule (PreserVision AREDS-2) 1 tab PO BID SUPPLEMENT 05/07/23
== END 2023-05-09 17:04 | disposition home or self-care (01) | DRG 177 ==
LOC: ED 16:09 → PCU 16:56
PROVIDERS: Admitting Provider Family Medicine; Emergency Provider Emergency Medicine; PCP Nurse Practitioner Adult Health; Visit Provider Hospitalist
DX: U07.1 COVID-19 (principal); N18.6 End stage renal disease; J12.82 Pneumonia due to coronavirus disease 2019; I50.43 Acute on chronic combined systolic (congestive) and diastolic (congestive) heart failure; J90 Pleural effusion, not elsewhere classified; I24.89 Other forms of acute ischemic heart disease; I13.2 Hypertensive heart and chronic kidney disease with heart failure and with stage 5 chronic kidney disease, or end stage renal disease; D63.8 Anemia in other chronic diseases classified elsewhere; I73.9 Peripheral vascular disease, unspecified; Z99.2 Dependence on renal dialysis; E03.9 Hypothyroidism, unspecified; K21.9 Gastro-esophageal reflux disease without esophagitis; J30.9 Allergic rhinitis, unspecified; I25.10 Atherosclerotic heart disease of native coronary artery without angina pectoris; G47.33 Obstructive sleep apnea (adult) (pediatric); E78.5 Hyperlipidemia, unspecified; F41.9 Anxiety disorder, unspecified; Z79.82 Long term (current) use of aspirin; Z79.02 Long term (current) use of antithrombotics/antiplatelets; Z51.5 Encounter for palliative care; Z87.891 Personal history of nicotine dependence; Z66 Do not resuscitate; R53.81 Other malaise; N40.0 Benign prostatic hyperplasia without lower urinary tract symptoms
CPT/HCPCS: 36415; 71045; 80048; 80053; 80061; 82550; 82728; 83615; 83735; 83880; 84100; 84145; 84443; 84484; 85025; 85027; 85379; 85652; 86140; 87631; 90937; 93005; 94640; 94668; 97162; 97166; 99285; J7030; J7050; A4216; G0257; J0248; J1940

== ENCOUNTER 2023-05-23 05:29 | Inpatient (IN) | payer MEDICARE, MEDICAID, BC, SELFPAY ==
[2023-05-23] VITALS (16 sets, daily range): BP systolic 102–232; BP diastolic 61–86; PULSE 64–103; RESP 15–20; TEMP 36.3–37; O2SAT 94–99; BMI 35.7; BMI 35.6; BMI 35.4
--- NOTE | 2023-05-23 05:38 | EX.ED.DYSGE1 ---
HPI History of Present Illness Chief Complaint: Confusion Informant: patient Onset/Context/Timing Onset: Today Timing: Continuous Quality: Confusion Location: generalized Worsened by: Nothing Relieved by: Nothing Narrative Narrative: Patient presents with confusion that began today. Patient was trying to get into another person's apartment to use the bathroom. Patient keeps saying that he does not know why he is here. Patient states he had a recent sore throat and admits to some occasional shortness of breath. Patient denies any headaches. Patient denies any chest pain. Patient denies any nausea or vomiting. Patient states he needs to go to dialysis today because it is Sunday. Patient states he has dialysis on Wednesdays and Fridays. [facility] Medical History Abnormal electrocardiogram Abnormal nuclear stress test Acute renal insufficiency Angina pectoris Arthritis Atherosclerosis of [place] coronary artery of [place] heart without angina pectoris Benign essential hypertension Benign prostatic hypertrophy without lower urinary tract symptoms BMI 40.0-44.9, adult Breast mass, left Chest pain Chest pain on exertion Chronic anemia Chronic kidney disease Chronic renal failure, stage 3 (moderate) Coronary artery disease Diastolic heart failure End stage renal disease Essential hypertension Fatigue Gastroesophageal reflux disease History of heart failure Hyperlipidemia Hypertension Hypokalemia Long-term use of high-risk medication Melanotic stools Normochromic normocytic anemia ALY (obstructive sleep apnea) Pulmonary hypertension Shortness of breath Sinus bradycardia Skin lesion Home Medications finasteride 5 mg tablet 5 mg PO 1200 PROSTATE 04/01/14 [History Last Taken 05/06/23] nitroglycerin 0.4 mg sublingual tablet 0.4 mg sublingual Q5M PRN Chest Pain 02/01/15 [History Last Taken 02/27/15] acetaminophen 325 mg capsule 650 mg PO TID pain/fever 02/20/18 [History Last Taken 05/07/23] levothyroxine 50 mcg tablet 50 mcg PO 1200 THYROID 05/02/18 [History Last Taken 05/04/23] loratadine 10 mg tablet 10 mg PO DAILY ALLERGIES 10/03/18 [History Last Taken 05/06/23] tamsulosin 0.4 mg capsule (Flomax) 0.4 mg PO 1700 PROSTATE 04/02/19 [History Last Taken 05/06/23] buspirone 5 mg tablet 5 mg PO BID ANXIETY 12/25/19 [History Last Taken 05/07/23] fluticasone propionate 50 mcg/actuation nasal spray,suspension (Allergy Relief (fluticasone)) 1 spray intranasal 1200 NASAL CONGESTION 05/05/22 [History Last Taken 05/04/23] guaifenesin 600 mg tablet, extended release 12 hr (Mucinex) 600 mg PO BID MUCUS RELIEF 05/05/22 [History Last Taken Unknown] montelukast 10 mg tablet 10 mg PO QHS ALLERGIES 05/05/22 [History Last Taken 05/06/23] omega 7-yhw-iyf-fish oil 60 mg-90 mg-500 mg capsule (Fish Oil) 1 cap PO BID SUPPLEMENT 05/05/22 [History Last Taken 05/07/23] pantoprazole 40 mg tablet,delayed release 40 mg PO 1200 ACID REFLUX 05/05/22 [History Last Taken 05/04/23] amlodipine 5 mg tablet 5 mg PO DAILY BLOOD PRESSURE 05/07/23 [History Last Taken 05/04/23] aspirin 81 mg tablet,delayed release 81 mg PO 1200 HEART HEALTH 05/07/23 [History Last Taken 05/04/23] clopidogrel 75 mg tablet 75 mg PO 1200 BLOOD THINNER 05/07/23 [History Last Taken 05/06/23] hydromorphone 4 mg tablet 4 mg PO Q4H PRN PAIN 05/07/23 [History Last Taken 05/07/23] multivitamin-iron 9 mg-folic acid 400 mcg-calcium and minerals tablet (Thera-M) 1 tab PO 1200 SUPPLEMENT 05/07/23 [History Last Taken 05/05/23] pravastatin 20 mg tablet 20 mg PO 1700 CHOLESTEROL 05/07/23 [History Last Taken 05/06/23] propylene glycol 0.6 % eye drops (Systane Complete) 1 drp ophthalmic (eye) BID EYE LUBRICANT 05/07/23 [History Last Taken 05/06/23] torsemide 20 mg tablet 20 mg PO DAILY EDEMA 05/07/23 [History Last Taken 05/06/23] vit C 250 mg-vit E 90 mg-zinc 40 mg-copper 1 [id number] capsule (PreserVision AREDS-2) 1 tab PO BID SUPPLEMENT 05/07/23 [History Last Taken 05/06/23] Allergy/AdvReac Type Severity Reaction Status Date / Time doxazosin mesylate Allergy Hives Verified 05/23/23 05:30 [From Cardura] fosinopril sodium Allergy Hives Verified 05/23/23 05:30 [From Monopril] lisinopril Allergy Hives Verified 05/23/23 05:30 morphine Allergy Other Verified 05/23/23 05:30 Family History Father Hypertension Cancer Brother CAD (coronary artery disease) Mother Hypertension Sister Hypertension Son Atrial fibrillation Surgical History history fistulogram (~07/27/17) History of angioplasty History of bilateral hip arthroplasty History of left breast biopsy (~06/2018) 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 S/P peripheral artery angioplasty (~03/2022) Status post right partial knee replacement Social History household members: none housing: [facility] Smoking Status: Former smoker Tobacco: How many years used: 20 second hand exposure: No alcohol intake: never substance use type: does not use caffeine: No what type of physical activity do you participate in: none ROS ROS ED Constitutional Constitutional ED: Denies chills or fever(s) Eyes Eyes: Denies blurry vision or change in vision ENT ENT ED: Reports sore throat; Denies rhinorrhea Cardiovascular Cardiovascular: Denies chest pain or palpitations Respiratory/Chest Respiratory/Chest: Reports dyspnea; Denies cough Gastrointestinal Gastrointestinal: Denies nausea or vomiting Musculoskeletal Musculoskeletal: Denies back pain or neck pain Integumentary Denies abscess or rash Neurologic Neurologic: Denies headache(s) or weakness Allergic/Immunologic Allergic/Immunologic ED: Denies mouth swelling or urticaria EXAM Physical Exam Const Vital Signs: 05/23/23 05:29 05/23/23 05:36 Temperature 97.9 F 98.5 F Temperature Source Temporal Oral Pulse Rate 98 96 Respiratory Rate 16 15 Blood Pressure 126/69 H 126/69 H Blood Pressure Mean 88 88 Pulse Ox 97 96 Oxygen Delivery Method Room Air Room Air Positive well nourished and well developed General Appearance ED: well developed and NAD HEENT Reports moist mucous membranes Neck supple and no JVD Resp normal respiratory effort and clear to auscultation bilaterally Cardio regular rate and regular rhythm GI non-tender and non-distended Palpation: soft Neuro CN's II-XII intact bilaterally and no sensory deficits noted Sensorium / Orientation: alert and orientation impaired Motor Exam: strength 5/5 throughout MDM MDM MDM Narrative Medical decision making narrative: Differential diagnosis includes pneumonia, urinary tract infection, sepsis, viral infection, hepatic encephalopathy, electrolyte abnormality, cardiac dysrhythmia, cardiac ischemia, stroke, and intracranial bleeding. EKG will be obtained to assess for cardiac dysrhythmia and cardiac ischemia. CT scan of the brain will be obtained to assess for stroke and intracranial bleeding. Chest x-ray will be obtained to assess for pneumonia and pneumothorax. CBC will be obtained to assess for leukocytosis and anemia. Comprehensive metabolic profile will be obtained to assess for hepatic function, renal function, and electrolyte abnormality. Serum ammonia levels to be obtained to assess for hepatic encephalopathy. High-sensitivity troponin will be obtained to assess for cardiac ischemia. 2-hour repeat high-sensitivity troponin will be obtained to assess for ongoing cardiac ischemia. PT was INR and PTT will be obtained to assess for coagulopathy. Lactate will be obtained to assess for sepsis. Blood cultures will be obtained to assess for sepsis. Urinalysis will be obtained to assess for urinary tract infection. COVID-19, influenza, and RSV PCR will be obtained to assess for viral infection. Lab Data Attestation: I reviewed the patient's lab results. Lab results narrative: CBC was reviewed. White blood cell count was slightly elevated at 11.6. There is a mild anemia with a hemoglobin of 9.3 and hematocrit 30.9. This is consistent with prior results. Serum ammonia level was reviewed and was normal at 16. PT was INR and PTT were reviewed. Pro time was slightly elevated at 18.4. INR was 1.5. PTT was also slightly elevated at 43. Comprehensive metabolic profile was reviewed. BUN was 41 and creatinine was 5.82. These are consistent with prior results. High-sensitivity troponin was reviewed and was 74. Labs: Laboratory Results - last 24 hr 05/23/23 05/23/23 06:00 06:25 WBC 11.6 H RBC 3.29 L Hgb 9.3 L Hct 30.9 L MCV 93.9 MCH 28.3 MCHC 30.1 L RDW Std Deviation 50.2 H RDW Coeff of Colleen 14.6 Plt Count 249 MPV 11.0 Immature Gran % (Auto) 0.500 Neut % (Auto) 82.3 H Lymph % (Auto) 8.[address] [place] % (Auto) 7.2 Eos % (Auto) 1.5 Baso % (Auto) 0.3 Absolute Neuts (auto) 9.5 H Absolute Lymphs (auto) 0.95 Nucleated RBC % 0 PT 18.4 H INR 1.5 APTT 43.0 H Sodium 134 L Potassium 4.0 Chloride 99 Carbon Dioxide 31.0 Anion Gap 4 L BUN 41 H Creatinine 5.82 H Estim Creat Clear Calc 11.54 Est GFR (MDRD) Af Amer 12 L Est GFR (MDRD) Non-Af 10 L BUN/Creatinine Ratio 7.0 L Glucose 150 H Calcium 10.0 Total Bilirubin 0.50 AST 11 L ALT 12 L Alkaline Phosphatase 92 Ammonia 16.0 Troponin I High Sens 74 Total Protein 7.1 Albumin 3.1 L Globulin 4.0 Albumin/Globulin Ratio 0.8 L Radiography Chest X-Ray - ED: 2 View, Read by ED Physician, Read by Radiologist, Right Infiltrate, Left Infiltrate, Right Effusion and Left Effusion Diagnostic Testing: Clinical Impression(s) from Imaging Studies Brain CT 05/23/23 06:00 IMPRESSION: No acute abnormality. 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 CT angiogram and/or MRI may be helpful to evaluate for acute infarct as clinically indicated. Electronically Signed: Poly Juarez MD at 7:14 EST Reading Location ID and State: [facility] / [place] Tel , Service support , Chest X-Ray 05/23/23 06:00 IMPRESSION: Increased bibasilar airspace disease with no change in pleural effusions. Pneumonia versus edema. Electronically Signed: Poly Juarez MD at 6:56 EST , PA and lateral chest x-rays obtained. There are 2 views. On my independent interpretation, there is bibasilar infiltrates. These are increased compared to previous chest x-ray. Bony thorax is normal. There is no pneumothorax noted. There are bilateral effusions. Radiologist also interpreted the x-ray and agrees. CT scan of the brain was obtained. There are chronic changes. There is no acute abnormality noted. This was interpreted by the radiologist and was independently reviewed by myself. EKG Initial EKG: Attestation: I personally reviewed and interpreted this EKG as follows: Interpretation: Sinus Rhythm (97) and Non-Specific ST Changes Comments: EKG was obtained. On my independent interpretation, shows normal sinus rhythm with a rate of 97. VT interval, QRS interval, and QTc intervals are within normal limits. There is left axis deviation at -21. There are nonspecific ST-T wave changes noted. There is no acute change compared to previous EKG dated 05/07/2023. Prior EKG tracings: available for review Prior: Unchanged (05/07/2023) Additional Tests and Interventions Additional Tests or Interventions: Blood cultures and urine cultures were ordered. Treatment and Re-Evaluation :: Given the chest x-ray findings, patient was started on Rocephin and Zithromax. Patient will likely need to be admitted. Care of the patient was turned over the oncoming physician pending lactate. Discharge Plan Triage Chief Complaint: Confusion ED Provider: Julio Cesar Uriarte Dx/Rx/DC Orders Clinical Impression: Leukocytosis, Acute confusion, Pneumonia Prescriptions: No Action acetaminophen 325 mg capsule 650 mg PO TID loratadine 10 mg tablet 10 mg PO DAILY levothyroxine 50 mcg tablet 50 mcg PO 1200 tamsulosin [Flomax] 0.4 mg capsule 0.4 mg PO 1700 buspirone 5 mg tablet 5 mg PO BID Rx Instructions: TAKE 1 TABLET BY MOUTH TWICE DAILY AT 5AM AND AT BEDTIME omega 1-mhx-auk-fish oil [Fish Oil] 60-90-500 mg capsule 1 cap PO BID pantoprazole 40 mg tablet,delayed release (DR/EC) 40 mg PO 1200 guaifenesin [Mucinex] 600 mg tablet extended release 12hr 600 mg PO BID Patient Comments: [place] [facility] [facility] fluticasone propionate [Allergy Relief (fluticasone)] 50 mcg/actuation spray,suspension 1 spray intranasal 1200 Rx Instructions: administer into each nostril montelukast 10 mg tablet 10 mg PO QHS finasteride 5 MG tablet 5 mg PO 1200 nitroglycerin 0.4 MG tablet 0.4 mg SUBLINGUAL Q5M PRN (Reason: Chest Pain) amlodipine 5 mg tablet 5 mg PO DAILY aspirin 81 mg tablet,delayed release (DR/EC) 81 mg PO 1200 hydromorphone 4 mg tablet 4 mg PO Q4H PRN (Reason: PAIN ) Systane Complete 0.6 % drops 1 drp ophthalmic (eye) BID torsemide 20 mg tablet 20 mg PO DAILY PreserVision AREDS-2 250-90-40-1 mg capsule 1 tab PO BID Thera-M 9 mg iron-400 mcg tablet 1 tab PO 1200 clopidogrel 75 MG tablet 75 mg PO 1200 pravastatin 20 mg tablet 20 mg PO 1700 Primary Care Provider: Germania Penn NP Referrals: Germania Penn FINISH FILER, FINISH FILER-C [Primary Care Provider] - Disposition Disposition: Acute Care Hospital [facility]
--- NOTE | 2023-05-23 06:00 | CT_ITS ---
INDICATION: Altered mental status EXAMINATION: CT BRAIN - CT Head or Brain W/O Contrast Injection TECHNIQUE: Multiple axial images were obtained of the head without intravenous contrast. A radiation dose optimization technique was used for this scan. IV Contrast dosage and agent: None. RADIATION DOSAGE (If Supplied By Facility): CTDIvol = ( 44.99 ) mGy, DLP = ( 880.47 ) mGycm COMPARISON: CT head 12/28/2020 FINDINGS: BRAIN: No acute bleed. No edema. Decreased attenuation in the periventricular white matter bilaterally. Osullivan-white matter differentiation is maintained. Arterial calcifications. VENTRICLES AND SULCI: Not dilated. EXTRA-AXIAL: 1.1 cm partially calcified extra-axial mass along the planum sphenoidala consistent with meningioma, unchanged. No acute extra-axial hematoma. CALVARIUM / SKULL BASE: Unremarkable. FACE/SINUSES: Unremarkable. SOFT TISSUES: Unremarkable. CT/Brain/Head without Contrast IMPRESSION: No acute abnormality. 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 CT angiogram and/or MRI may be helpful to evaluate for acute infarct as clinically indicated. Electronically Signed: Poly Juarez MD at 7:14 EST ,
--- NOTE | 2023-05-23 06:00 | RAD_ITS ---
INDICATION: Confusion EXAMINATION/TECHNIQUE: X-RAY - XR Chest 2 Views COMPARISON: 05/07/2023 FINDINGS: LINES/DEVICES: None. LUNGS: Low lung volumes. Alveolar infiltrates in the lung bases increased compared to prior. Small bilateral pleural effusions not significantly changed. No pneumothorax. MEDIASTINUM: Unremarkable. CARDIAC SILHOUETTE: Not enlarged. BONES AND SOFT TISSUES: No acute abnormalities. RAD/Chest PA and Lateral IMPRESSION: Increased bibasilar airspace disease with no change in pleural effusions. Pneumonia versus edema. Electronically Signed: Poly Juarez MD at 6:56 EST ,
--- OUTSIDE RECORDS SUMMARY | 2023-05-23 06:31 | XMS RPT_ITS | CCD ---
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 Repository (2 sources) Lisinopril; Translations: [LISINOPRIL] Drug Allergy 0 [facility] Repository (2 sources) Morphine; Translations: [MORPHINE] Drug Allergy 0 [facility] Repository (1 source) sun exposure Drug allergy (disorder) 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] Onset: 02-02-2020 02-02-2020 [...] 98.6 [degF] Nicolas Mayorga APRN.CNP Work Phone: [facility] 09-03-2022 08:14-0400 Body weight 112.49 kg Nicolas Mayorga APRN.CNP Work Phone: [facility] 09-03-2022 08:14-0400 Diastolic blood pressure 100 mm[Hg] Nicolas Mayorga APRN.CNP Work Phone: [facility] 09-03-2022 08:14-0400 Heart rate 102 /min Nicolas Mayorga APRN.CNP Work Phone: [facility] 09-03-2022 08:14-0400 Respiratory rate 18 /min Nicolas Mayorga APRN.CNP Work Phone: [facility] 09-03-2022 08:14-0400 SaO2% (BldA) [Mass fraction] 96 % Nicolas Mayorga APRN.CNP Work Phone: [facility] 09-03-2022 08:14-0400 Systolic blood pressure 168 mm[Hg] Nicolas Mayorga APRN.CLOTH FINISHING RANGE OPERATOR CHIEF Work Phone: [facility] Encounters Encounter Date Encounter Type Care Provider Facility Start: 09-03-2022 End: 09-03-2022 ambulatory Facility:[facility] Start: 09-03-2022 End: 09-03-2022 Patient encounter procedure Nicolas Mayorga APRN.CNP Work Phone: [facility] Plan of Treatment Date Care Activity Detail Author Start: 12-29-2022 Influenza vaccination INFLUENZ A (Season Ended) [facility] Start: 04-30-2022 ADVANCE DIRECTIVE DISCUSSION ADVANCE DIRECTIVE DISCUSSION [facility] Start: 04-28-2021 COVID-19 VACCINE (4 - Booster for Pfizer series) COVID-19 VACCINE (4 - Booster for Pfizer series) [facility] Start: 03-12-2018 DIABETES SCREEN DIABETES SCREEN [facility] Start: 1957 SHINGRIX VACCINE (1 of 2) SHINGRIX VACCINE (1 of 2) [facility] Start: 1957 Urine microalbumin profile DTAP,TDAP,TD (1 - Tdap) [facility] Start: 1944 PNEUMOCOCCAL: 65+ (1 - PCV) PNEUMOCOCCAL: 65+ (1 - PCV) [facility] Radiologic exam ches t 2 views XR CHEST 2V FRONTAL/LAT Radiology STAT SOB (shortness of breath) Ordered: 09/03/2022 [facility] Work Phone: Payers Date Payer Category Payer Medicaid [facility] MEDICAID MYC ARE [facility] MEDICAID [id number] 2022-Present [phone] [address] [place] [address] Medicaid [id number] 2022 Medicare UHC MEDICARE MYC ARE UHC MEDICARE [id number] 2022-Present [phone] [address] [place] [address] Medicare [id number] 2022 Medicare [id number] 1938 Unknown [id number] 1938 Unknown [id number] 1938 Unknown [id number] 1938 Unknown [id number] 1938 Unknown [id number] 1938 Unknown [id number] 1938 Unknown [id number] 1938 Unknown [id number] 1938 Unknown [id number] Medicaid [id number] Medicaid [id number] Medicare [id number] Social History Date Type Detail Facility Start: 09-03-2022 [facility] Work Phone: End: 04-30-1987 History of tobacco use Current smoker [facility] Work Phone: End: 04-30-1987 History of tobacco use Cigarette Smoker [facility] Work Phone: Start: 09-03-2022 Tobacco use and exposure Former smokeless tobacco user [facility] Work Phone: End: 04-30-1987 History of tobacco use User of smokeless tobacco [facility] Work Phone: Start: 1940 Sex Assigned At Not on file C [facility] Progress note 09-03-2022 Note Date & Type Note Facility 09-03-2022 Note HNO ID: [id number] Author: Nicolas Mayorga APRN.CLOTH FINISHING RANGE OPERATOR CHIEF Service: ? Author Type: Nurse Practitioner Type: [...] NASAL) 0.65 % nasal spray Use 1 Guion in the nose every 2 hours as [...] XR CHEST 2V FRONTAL/LAT Nicolas Mayorga APRN.EMILIA [facility] History of Present illness Narrative 09-03-2022 Nicolas [...] NASAL) 0.65 % nasal spray Use 1 Guion in the nose every 2 hours as [...] Nicolas Mayorga APRN.EMILIA documented in this encounter [facility] Evaluation note Note Date & Type Note Facility documented in this encounter [facility] Summary Purpose Family History No Family History Records FoundNo Family History Records Found Advance Directives No Advanced Directives Records FoundNo Advanced Directives Records Found Additional Source Comments (unrecognized sect ion and content) No Status Records FoundNo Status Records Found INFORMATION SOURCE (unrecogn ized section and content) DATE CREATED AUTHOR AUTHOR'S ORGANIZ ATION 09/04/2022 [facility] Source Comments (unrecognize d section and content) In the event this informatio n is protected by the Federal Confidentiality of Alcohol and Drug Abuse Patient Records regulations: The Federal rules restrict any use of the information to criminally investigate or prosecute any alcohol or drug abuse patient.[facility] Reason for Visit (unrecogniz ed section and [...] BE BASED ON THE PRIMARY CLINICAL RECORDS. [facility] provides no warranty or guarantee of the accuracy or completeness of information in this document.
[2023-05-23 06:43] LABS: Absolute Lymphocyte Count 0.95 X10^3/uL (0.83-4.51); Absolute Neutrophil Count 9.5 X10^3/uL (2.0-7.7); Basophil# 0.04 X10^3/uL; Basophil% 0.3 % (0-1); Eosinophil# 0.17 X10^3/uL; Eosinophils% 1.5 % (0-5); Hematocrit 30.9 % (40-54); Hemoglobin 9.3 g/dL (13.0-16.5); Lymphocyte # 0.95 X10^3/ul (0.83-4.51); Lymphocyte % 8.2 % (19-41); Mean Corp Hgb Conc 30.1 g/dL (32-36); Mean Corpuscular Hgb 28.3 pg (27.0-32.0); Mean Corpuscular Volume 93.9 fL (80-94); Monocyte# 0.84 X10^3/uL; Monocyte% 7.2 % (0-10); NRBC Flagged by Analyzer 0 % (0-5); Neutrophil # 9.54 X10^3/uL (2.7-7.7); Neutrophil % 82.3 % (47-70); Platelet Count 249 K/mm3 (150-450); RBC Distribution Width CV 14.6 % (11.6-14.6); RBC Distribution Width SD 50.2 fl (35.1-43.9); Red Blood Count 3.29 M/mm3 (4.6-6.2); White Blood Count 11.6 K/mm3 (4.4-11.0)
[2023-05-23 07:01] LABS: International Normalized Ratio 1.5; Prothrombin Time (Protime)PT. 18.4 SECONDS (11.7-14.9)
[2023-05-23 07:11] LABS: ALB/GLOB Ratio 0.8 RATIO (0.9-2.4); AST(SGOT) 11 U/L (15-37); Alanine Aminotransfer ALT/SGPT 12 U/L (16-61); Albumin, Serum 3.1 g/dL (3.2-5.0); Alkaline Phosphatase 92 U/L (45-117); Anion Gap 4 (5-15); BUN 41 mg/dL (7-18); Chloride 99 mmol/L (98-107); Creatinine, Serum 5.82 mg/dL (0.70-1.30); EST Glomerular Filtration Rate 10 mL/min (>60); Est Glom Filt Rate - Afr Amer 12 mL/min (>60); Estimated Creatinine Clearance 11.54 ml/min; Glucose 150 mg/dL (74-106); Protein, Total 7.1 g/dL (6.4-8.2); Sodium Level 134 mmol/L (136-145); Troponin-I HS (w/2H Reflex) 74 pg/mL (3.0-78.0)
[2023-05-23 07:59] LABS: Bacteria 0 SEEN /hpf (None Seen); Mucous, Urine 0 SEEN /hpf (<or=2+); Red Blood Cells-Urine 0 SEEN /hpf (0-5)
[2023-05-23 08:08] LABS: Color, Urine Yellow (Yellow); Glucose, Dipstick Normal (Normal); Ketone-Dipstick Negative (Negative); Leukocyte Esterase-Dipstick 25 /ul (Negative); Nitrite-Dipstick Negative (Negative); Occult Blood-Urine Negative /ul (Negative); Protein-Dipstick 100 mg/dl (Negative); Urine Bilirubin Dipstick Negative (Negative); Urine Clarity Sl. Cloudy (Clear); Urine Urobilinogen Normal (Normal)
[2023-05-23 08:14] LABS: Squamous Epithelial Cells - UA 0-5 SEEN /hpf (0-5); White Blood Cells 0-5 SEEN /hpf (0-5)
--- NOTE | 2023-05-23 08:24 | ED.RN ---
lab was called about obtaining second set of cultures
[2023-05-23 08:50] LABS: Reflex Troponin-HS? (from REC) Y
[2023-05-23] MEDS: Ceftriaxone 2 GM in 0.9% Normal Saline (50mL MB+) 50 ML IV (09:23)
--- NOTE | 2023-05-23 09:36 | EX.ED.DYSGE1 ---
HPI History of Present Illness Chief Complaint: Confusion Detail of Chief Complaint: A new chart was generated because I am unable to open the original chart to [facility] Medical History Abnormal electrocardiogram Abnormal nuclear stress test Acute renal insufficiency Angina pectoris Arthritis Atherosclerosis of [place] coronary artery of [place] heart without angina pectoris Benign essential hypertension Benign prostatic hypertrophy without lower urinary tract symptoms BMI 40.0-44.9, adult Breast mass, left Chest pain Chest pain on exertion Chronic anemia Chronic kidney disease Chronic renal failure, stage 3 (moderate) Coronary artery disease Diastolic heart failure End stage renal disease Essential hypertension Fatigue Gastroesophageal reflux disease History of heart failure Hyperlipidemia Hypertension Hypokalemia Long-term use of high-risk medication Melanotic stools Normochromic normocytic anemia ALY (obstructive sleep apnea) Pulmonary hypertension Shortness of breath Sinus bradycardia Skin lesion Home Medications finasteride 5 mg tablet 5 mg PO 1200 PROSTATE 04/01/14 [History Last Taken 05/06/23] nitroglycerin 0.4 mg sublingual tablet 0.4 mg sublingual Q5M PRN Chest Pain 02/01/15 [History Last Taken 02/27/15] acetaminophen 325 mg capsule 650 mg PO TID pain/fever 02/20/18 [History Last Taken 05/07/23] levothyroxine 50 mcg tablet 50 mcg PO 1200 THYROID 05/02/18 [History Last Taken 05/04/23] loratadine 10 mg tablet 10 mg PO DAILY ALLERGIES 10/03/18 [History Last Taken 05/06/23] tamsulosin 0.4 mg capsule (Flomax) 0.4 mg PO 1700 PROSTATE 04/02/19 [History Last Taken 05/06/23] buspirone 5 mg tablet 5 mg PO BID ANXIETY 12/25/19 [History Last Taken 05/07/23] fluticasone propionate 50 mcg/actuation nasal spray,suspension (Allergy Relief (fluticasone)) 1 spray intranasal 1200 NASAL CONGESTION 05/05/22 [History Last Taken 05/04/23] guaifenesin 600 mg tablet, extended release 12 hr (Mucinex) 600 mg PO BID MUCUS RELIEF 05/05/22 [History Last Taken Unknown] montelukast 10 mg tablet 10 mg PO QHS ALLERGIES 05/05/22 [History Last Taken 05/06/23] omega 8-txi-mgf-fish oil 60 mg-90 mg-500 mg capsule (Fish Oil) 1 cap PO BID SUPPLEMENT 05/05/22 [History Last Taken 05/07/23] pantoprazole 40 mg tablet,delayed release 40 mg PO 1200 ACID REFLUX 05/05/22 [History Last Taken 05/04/23] amlodipine 5 mg tablet 5 mg PO DAILY BLOOD PRESSURE 05/07/23 [History Last Taken 05/04/23] aspirin 81 mg tablet,delayed release 81 mg PO 1200 HEART HEALTH 05/07/23 [History Last Taken 05/04/23] clopidogrel 75 mg tablet 75 mg PO 1200 BLOOD THINNER 05/07/23 [History Last Taken 05/06/23] hydromorphone 4 mg tablet 4 mg PO Q4H PRN PAIN 05/07/23 [History Last Taken 05/07/23] multivitamin-iron 9 mg-folic acid 400 mcg-calcium and minerals tablet (Thera-M) 1 tab PO 1200 SUPPLEMENT 05/07/23 [History Last Taken 05/05/23] pravastatin 20 mg tablet 20 mg PO 1700 CHOLESTEROL 05/07/23 [History Last Taken 05/06/23] torsemide 20 mg tablet 20 mg PO DAILY EDEMA 05/07/23 [History Last Taken 05/06/23] vit C 250 mg-vit E 90 mg-zinc 40 mg-copper 1 lm-[id number]-wdzllj capsule (PreserVision AREDS-2) 1 tab PO BID SUPPLEMENT 05/07/23 [History Last Taken 05/06/23] Allergy/AdvReac Type Severity Reaction Status Date / Time doxazosin mesylate Allergy Hives Verified 05/23/23 05:30 [From Cardura] fosinopril sodium Allergy Hives Verified 05/23/23 05:30 [From Monopril] lisinopril Allergy Hives Verified 05/23/23 05:30 morphine Allergy Other Verified 05/23/23 05:30 Family History Father Hypertension Cancer Brother CAD (coronary artery disease) Mother Hypertension Sister Hypertension Son Atrial fibrillation Surgical History history fistulogram (~07/27/17) History of angioplasty History of bilateral hip arthroplasty History of left breast biopsy (~06/2018) 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 S/P peripheral artery angioplasty (~03/2022) Status post right partial knee replacement Social History household members: none housing: group home Smoking Status: Former smoker Tobacco: How many years used: 20 second hand exposure: No alcohol intake: never substance use type: does not use caffeine: No what type of physical activity do you participate in: none EXAM Physical Exam Const Vital Signs: 05/23/23 05:29 05/23/23 05:36 05/23/23 07:36 Temperature 97.9 F 98.5 F 98.6 F Temperature Source Temporal Oral Temporal Pulse Rate 98 96 78 Respiratory Rate 16 15 16 Blood Pressure 126/69 H 126/69 H 126/76 H Blood Pressure Mean 88 88 92 Pulse Ox 97 96 97 Oxygen Delivery Method Room Air Room Air Room Air 05/23/23 09:00 05/23/23 10:00 05/23/23 10:00 Temperature 97.6 F L 97.6 F L 97.6 F L Temperature Source Temporal Temporal Pulse Rate 99 88 64 Respiratory Rate 16 16 16 Blood Pressure 145/86 H 126/78 H 134/78 H Blood Pressure Mean 105 94 96 Pulse Ox 98 99 99 Oxygen Delivery Method Room Air Room Air [facility] MDM Lab Data Attestation: I reviewed the patient's lab results. Lab results narrative: White count is slightly elevated 11.6 with shift. There is no bandemia. Patient has chronic anemia. Basic metabolic panel reveals a BUN of 41 and a creatinine of 5.82 with an estimated GFR of 10. Patient is on hemodialysis. He is dialyzed on Sunday, Sunday and Sunday. UA is negative. Lactate is normal. Troponin is upper end of normal. Patient's had elevated troponins in the past. Labs: Laboratory Results - last 24 hr 05/23/23 05/23/23 05/23/23 06:00 06:25 07:56 WBC 11.6 H RBC 3.29 L Hgb 9.3 L Hct 30.9 L MCV 93.9 MCH 28.3 MCHC 30.1 L RDW Std Deviation 50.2 H RDW Coeff of Colleen 14.6 Plt Count 249 MPV 11.0 Immature Gran % (Auto) 0.500 Neut % (Auto) 82.3 H Lymph % (Auto) 8.2 L [place] % (Auto) 7.2 Eos % (Auto) 1.5 Baso % (Auto) 0.3 Absolute Neuts (auto) 9.5 H Absolute Lymphs (auto) 0.95 Nucleated RBC % 0 PT 18.4 H INR 1.5 APTT 43.0 H Sodium 134 L Potassium 4.0 Chloride 99 Carbon Dioxide 31.0 Anion Gap 4 L BUN 41 H Creatinine 5.82 H Estim Creat Clear Calc 11.54 Est GFR (MDRD) Af Amer 12 L Est GFR (MDRD) Non-Af 10 L BUN/Creatinine Ratio 7.0 L Glucose 150 H Lactic Acid Calcium 10.0 Total Bilirubin 0.50 AST 11 L ALT 12 L Alkaline Phosphatase 92 Ammonia 16.0 Troponin I High Sens 74 B-Natriuretic Peptide 1057.6 H Total Protein 7.1 Albumin 3.1 L Globulin 4.0 Albumin/Globulin Ratio 0.8 L Urine Color Yellow Urine Clarity Sl. Cloudy Urine pH 8.0 Ur Specific [place] 1.010 Urine Protein 100 H Urine Glucose (UA) Normal Urine Ketones Negative Urine Occult Blood Negative Urine Nitrite Negative Urine Bilirubin Negative Urine Urobilinogen Normal Ur Leukocyte Esterase 25 H Urine RBC 0 SEEN Urine WBC 0-5 SEEN Ur Squamous Epith Cells 0-5 SEEN Urine Bacteria 0 SEEN Urine Mucus 0 SEEN 05/23/23 09:08 WBC RBC Hgb Hct MCV MCH MCHC RDW Std Deviation RDW Coeff of Colleen Plt Count MPV Immature Gran % (Auto) Neut % (Auto) Lymph % (Auto) [place] % (Auto) Eos % (Auto) Baso % (Auto) Absolute Neuts (auto) Absolute Lymphs (auto) Nucleated RBC % PT INR APTT Sodium Potassium Chloride Carbon Dioxide Anion Gap BUN Creatinine Estim Creat Clear Calc Est GFR (MDRD) Af Amer Est GFR (MDRD) Non-Af BUN/Creatinine Ratio Glucose Lactic Acid 1.3 Calcium Total Bilirubin AST ALT Alkaline Phosphatase Ammonia Troponin I High Sens 73 B-Natriuretic Peptide Total Protein Albumin Globulin Albumin/Globulin Ratio Urine Color Urine Clarity Urine pH Ur Specific [place] Urine Protein Urine Glucose (UA) Urine Ketones Urine Occult Blood Urine Nitrite Urine Bilirubin Urine Urobilinogen Ur Leukocyte Esterase Urine RBC Urine WBC Ur Squamous Epith Cells Urine Bacteria Urine Mucus Radiography Diagnostic Testing: Clinical Impression(s) from Imaging Studies Brain CT 05/23/23 06:00 IMPRESSION: No acute abnormality. 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 CT angiogram and/or MRI may be helpful to evaluate for acute infarct as clinically indicated. Electronically Signed: Poly Juarez MD at 7:14 EST , Chest X-Ray 05/23/23 06:00 IMPRESSION: Increased bibasilar airspace disease with no change in pleural effusions. Pneumonia versus edema. Electronically Signed: Poly Juarez MD at 6:56 EST , Additional Tests and Interventions Additional Tests or Interventions: With history of recent admission and EF of 20% hospitalist raise question if this could be heart failure and not pneumonia. I this is a possibility. However would not expect a slightly elevated white count. Also there is no cephalization or curly B-lines per my interpretation of the x-ray. Discharge Plan Dx/Rx/DC Orders Clinical Impression: Pneumonia of both lower lobes, Atherosclerosis of [place] coronary artery of [place] heart without angina pectoris, Benign essential hypertension, Acute encephalopathy, Leukocytosis, ESRD on hemodialysis, Anemia of chronic illness Attending Provider: Willie Vasquez Disposition Disposition: Acute Care Hospital [facility] Discharge Date/Time: 05/23/23 10:56 Capacity Capacity Assessment Tool Patient lacks Decision Making Capacity: unable to understand, reason and deliberate health related choices: Yes Risk to self and or others?: Yes Risk of leaving the patient care unit and or hospital?: Yes 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 Patient is at times directable to get back in bed at times he is not. He is insisting that he wants to leave. Patient does not have the capacity or understanding to sign out AGAINST MEDICAL ADVICE. Therefore, will not allow patient to leave since there is significant risk/harm to patient. Define type of medical hold:: Hospital Imposed
[2023-05-23 09:38] LABS: Troponin-I HS 73 pg/mL (3.0-78.0)
[2023-05-23] MEDS: Azithromycin 500 MG in Dextrose 5%-Water (250mL Bag) 250 ML 250 MG IV (09:41)
[2023-05-23 09:42] LABS: Lactic Acid 1.3 mmol/L (0.4-1.9)
--- NOTE | 2023-05-23 10:15 | NURSING ---
DR RAMAN LOBO
--- NOTE | 2023-05-23 10:25 | ED.RN ---
attempted to call family. no answer for son navneet, and when dialed son shavonne the gentleman said that was not his name
--- OUTSIDE RECORDS SUMMARY | 2023-05-23 10:43 | XMS RPT_ITS | CCD ---
Author Name Unknown Address [address] [place] [address] Organization [facility] Care Team Providers Care Materials Manager Name Role Phone ARABELLA VILLARREAL MD Admitting [...] Reaction(s) Facility (1 source) Doxazosin Drug Allergy [facility] Repository (2 sources) Lisinopril; Translations: [LISINOPRIL] Drug Allergy 0 [facility] Repository (2 sources) Morphine; Translations: [MORPHINE] Drug Allergy 0 [facility] Repository (1 source) sun exposure Drug allergy (disorder) [facility] Repository (2 sources) Doxazosin; Translations: [DOXAZOSIN] Drug Allergy 0 Unknown [facility] (2 sources) Fosinopril; Translations: [FOSINOPRIL] Drug Allergy 0 Unknown [facility] (1 source) Lisinopril Drug Allergy 0 Unknown [facility] (1 source) Morphine Drug Allergy 0 Mental Status Change [facility] Medications Completed/Discontinued Medications Medication Drug [...] source) Long-term current use of anticoagulant; 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] Onset: 02-02-2020 02-02-2020 [...] 98.6 [degF] Nicolas Mayorga APRN.CNP Work Phone: [facility] 09-03-2022 08:14-0400 Body weight 112.49 kg Nicolas Mayorga APRN.CNP Work Phone: [facility] 09-03-2022 08:14-0400 Diastolic blood pressure 100 mm[Hg] Nicolas Mayorga APRN.CNP Work Phone: [facility] 09-03-2022 08:14-0400 Heart rate 102 /min Nicolas Mayorga APRN.CNP Work Phone: [facility] 09-03-2022 08:14-0400 Respiratory rate 18 /min Nicolas Mayorga APRN.CNP Work Phone: [facility] 09-03-2022 08:14-0400 SaO2% (BldA) [Mass fraction] 96 % Nicolas Mayorga APRN.CNP Work Phone: [facility] 09-03-2022 08:14-0400 Systolic blood pressure 168 mm[Hg] Nicolas Mayorga APRN.INSPECTOR [employer] Work Phone: [facility] Encounters Encounter Date Encounter Type Care Provider Facility Start: 09-03-2022 End: 09-03-2022 ambulatory Facility:[facility] Start: 09-03-2022 End: 09-03-2022 Patient encounter procedure Nicolas Mayorga APRN.CNP Work Phone: [facility] Plan of Treatment Date Care Activity Detail Author Start: 12-29-2022 Influenza vaccination INFLUENZ A (Season Ended) [facility] Start: 04-30-2022 ADVANCE DIRECTIVE DISCUSSION ADVANCE DIRECTIVE DISCUSSION [facility] Start: 04-28-2021 COVID-19 VACCINE (4 - Booster for Pfizer series) COVID-19 VACCINE (4 - Booster for Pfizer series) [facility] Start: 03-12-2018 DIABETES SCREEN DIABETES SCREEN [facility] Start: 1957 SHINGRIX VACCINE (1 of 2) SHINGRIX VACCINE (1 of 2) [facility] Start: 1959 Urine microalbumin profile DTAP,TDAP,TD (1 - Tdap) [facility] Start: 1946 PNEUMOCOCCAL: 65+ (1 - PCV) PNEUMOCOCCAL: 65+ (1 - PCV) [facility] Radiologic exam ches t 2 views XR CHEST 2V FRONTAL/LAT Radiology STAT SOB (shortness of breath) Ordered: 09/03/2022 [facility] Work Phone: Payers Date Payer Category Payer Medicaid [facility] MED[facility]ID MYC ARE [facility] MEDICAID [id number] 2022-Present [phone] [address] [place] [address] Medicaid [id number] 2022 Medicare UHC MEDICARE MYC ARE UHC MEDICARE [id number] 2022-Present [phone] [address] [place] [address] Medicare [id number] 2022 Medicare [id number] 1938 Unknown [id number] 1938 Unknown [id number] 1938 Unknown [id number] 1938 Unknown [id number] 1938 Unknown [id number] 1938 Unknown [id number] 1938 Unknown [id number] 1938 Unknown [id number] 1938 Unknown [id number] Medicaid [id number] Medicaid [id number] Medicare [id number] Social History Date Type Detail Facility Start: 09-03-2022 [facility] Work Phone: End: 04-30-1987 History of tobacco use Current smoker [facility] Work Phone: End: 04-30-1987 History of tobacco use Cigarette Smoker [facility] Work Phone: Start: 09-03-2022 Tobacco use and exposure Former smokeless tobacco user [facility] Work Phone: End: 04-30-1987 History of tobacco use User of smokeless tobacco [facility] Work Phone: Start: 1940 Sex Assigned At Not on file [facility] Progress note 09-03-2022 Note Date & Type Note Facility 09-03-2022 Note HNO ID: [id number] Author: Nicolas Mayorga APRN.INSPECTOR [employer] Service: ? Author Type: Nurse Practitioner Type: [...] NASAL) 0.65 % nasal spray Use 1 Stow in the nose every 2 hours as [...] XR CHEST 2V FRONTAL/LAT Nicolas Mayorga APRN.EMILIA [facility] History of Present illness Narrative [...] NASAL) 0.65 % nasal spray Use 1 Stow in the nose every 2 hours as [...] Nicolas Mayorga APRN.EMILIA documented in this encounter [facility] Evaluation note Note Date & Type Note Facility documented in this encounter [facility] Summary Purpose Family History No Family History Records FoundNo Family History Records Found Advance Directives No Advanced Directives Records FoundNo Advanced Directives Records Found Additional Source Comments (unrecognized sect ion and content) No Status Records FoundNo Status Records Found INFORMATION SOURCE (unrecogn ized section and content) DATE CREATED AUTHOR AUTHOR'S ORGANIZ ATION 09/04/2022 [facility] Source Comments (unrecognize d section and content) In the event this informatio n is protected by the Federal Confidentiality of Alcohol and Drug Abuse Patient Records regulations: The Federal rules restrict any use of the information to criminally investigate or prosecute any alcohol or drug abuse patient.[facility] Reason for Visit (unrecogniz ed [...] BE BASED ON THE PRIMARY CLINICAL RECORDS. [facility]. provides no warranty or guarantee of the accuracy or completeness of information in this document.
--- NOTE | 2023-05-23 11:06 | PCM.HP.STD ---
HPI - General General Date of Admission: 05/23/23 Date of Service: 05/23/23 Chief Complaint: Altered mental status HPI Narrative ARIANNA GUILLERMO, is a 82 M who presents with altered mental status. 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 Patient could not provide any reliable history given his encephalopathy. Patient was however reported to be confused assisted living facility moving from room to room. Was brought to the emergency department. Workup in the ED did show some leukocytosis. Checks x-ray did show bibasilar opacities questionable for pneumonia versus fluid. Given patient significantly low EF and assessment of acute on chronic congestive heart failure made admitted to a monitored bed for further management [facility] Medical History Abnormal electrocardiogram Abnormal nuclear stress test Acute renal insufficiency Angina pectoris Arthritis Atherosclerosis of [place] coronary artery of [place] heart without angina pectoris Benign essential hypertension Benign prostatic hypertrophy without lower urinary tract symptoms BMI 40.0-44.9, adult Breast mass, left Chest pain Chest pain on exertion Chronic anemia Chronic kidney disease Chronic renal failure, stage 3 (moderate) Coronary artery disease Diastolic heart failure End stage renal disease Essential hypertension Fatigue Gastroesophageal reflux disease History of heart failure Hyperlipidemia Hypertension Hypokalemia Long-term use of high-risk medication Melanotic stools Normochromic normocytic anemia ALY (obstructive sleep apnea) Pulmonary hypertension Shortness of breath Sinus bradycardia Skin lesion Home Medications finasteride 5 mg tablet 5 mg PO 1200 PROSTATE 04/01/14 [History Last Taken 05/06/23] nitroglycerin 0.4 mg sublingual tablet 0.4 mg sublingual Q5M PRN Chest Pain 02/01/15 [History Last Taken 02/27/15] acetaminophen 325 mg capsule 650 mg PO TID pain/fever 02/20/18 [History Last Taken 05/07/23] levothyroxine 50 mcg tablet 50 mcg PO 1200 THYROID 05/02/18 [History Last Taken 05/04/23] loratadine 10 mg tablet 10 mg PO DAILY ALLERGIES 10/03/18 [History Last Taken 05/06/23] tamsulosin 0.4 mg capsule (Flomax) 0.4 mg PO 1700 PROSTATE 04/02/19 [History Last Taken 05/06/23] buspirone 5 mg tablet 5 mg PO BID ANXIETY 12/25/19 [History Last Taken 05/07/23] fluticasone propionate 50 mcg/actuation nasal spray,suspension (Allergy Relief (fluticasone)) 1 spray intranasal 1200 NASAL CONGESTION 05/05/22 [History Last Taken 05/04/23] guaifenesin 600 mg tablet, extended release 12 hr (Mucinex) 600 mg PO BID MUCUS RELIEF 05/05/22 [History Last Taken Unknown] montelukast 10 mg tablet 10 mg PO QHS ALLERGIES 05/05/22 [History Last Taken 05/06/23] omega 4-iss-xeg-fish oil 60 mg-90 mg-500 mg capsule (Fish Oil) 1 cap PO BID SUPPLEMENT 05/05/22 [History Last Taken 05/07/23] pantoprazole 40 mg tablet,delayed release 40 mg PO 1200 ACID REFLUX 05/05/22 [History Last Taken 05/04/23] amlodipine 5 mg tablet 5 mg PO DAILY BLOOD PRESSURE 05/07/23 [History Last Taken 05/04/23] aspirin 81 mg tablet,delayed release 81 mg PO 1200 HEART HEALTH 05/07/23 [History Last Taken 05/04/23] clopidogrel 75 mg tablet 75 mg PO 1200 BLOOD THINNER 05/07/23 [History Last Taken 05/06/23] hydromorphone 4 mg tablet 4 mg PO Q4H PRN PAIN 05/07/23 [History Last Taken 05/07/23] multivitamin-iron 9 mg-folic acid 400 mcg-calcium and minerals tablet (Thera-M) 1 tab PO 1200 SUPPLEMENT 05/07/23 [History Last Taken 05/05/23] pravastatin 20 mg tablet 20 mg PO 1700 CHOLESTEROL 05/07/23 [History Last Taken 05/06/23] propylene glycol 0.6 % eye drops (Systane Complete) 1 drp ophthalmic (eye) BID EYE LUBRICANT 05/07/23 [History Last Taken 05/06/23] torsemide 20 mg tablet 20 mg PO DAILY EDEMA 05/07/23 [History Last Taken 05/06/23] vit C 250 mg-vit E 90 mg-zinc 40 mg-copper 1 [id number] capsule (PreserVision AREDS-2) 1 tab PO BID SUPPLEMENT 05/07/23 [History Last Taken 05/06/23] Allergy/AdvReac Type Severity Reaction Status Date / Time doxazosin mesylate Allergy Hives Verified 05/23/23 05:30 [From Cardura] fosinopril sodium Allergy Hives Verified 05/23/23 05:30 [From Monopril] lisinopril Allergy Hives Verified 05/23/23 05:30 morphine Allergy Other Verified 05/23/23 05:30 Family History Father Hypertension Cancer Brother CAD (coronary artery disease) Mother Hypertension Sister Hypertension Son Atrial fibrillation Surgical History history fistulogram (~07/27/17) History of angioplasty History of bilateral hip arthroplasty History of left breast biopsy (~06/2018) 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 S/P peripheral artery angioplasty (~03/2022) Status post right partial knee replacement Social History household members: none housing: [facility] Smoking Status: Former smoker Tobacco: How many years used: 20 second hand exposure: No alcohol intake: never substance use type: does not use caffeine: No what type of physical activity do you participate in: none ROS Review of Systems ROS Unobtainable: due to encephalopathy Vital Signs Vital Signs Vital Signs: 05/23/23 05:29 05/23/23 05:36 05/23/23 07:36 Temperature 97.9 F 98.5 F 98.6 F Temperature Source Temporal Oral Temporal Pulse Rate 98 96 78 Respiratory Rate 16 15 16 Blood Pressure 126/69 H 126/69 H 126/76 H Blood Pressure Mean 88 88 92 Blood Pressure Source Blood Pressure Position Blood Pressure Location Pulse Ox 97 96 97 Oxygen Delivery Method Room Air Room Air Room Air 05/23/23 09:00 05/23/23 10:00 05/23/23 10:00 Temperature 97.6 F L 97.6 F L 97.6 F L Temperature Source Temporal Temporal Pulse Rate 99 88 64 Respiratory Rate 16 16 16 Blood Pressure 145/86 H 126/78 H 134/78 H Blood Pressure Mean 105 94 96 Blood Pressure Source Blood Pressure Position Blood Pressure Location Pulse Ox 98 99 99 Oxygen Delivery Method Room Air Room Air 05/23/23 11:04 Temperature 97.9 F Temperature Source Temporal Pulse Rate 70 Respiratory Rate 18 Blood Pressure 123/80 H Blood Pressure Mean 94 Blood Pressure Source Monitor Blood Pressure Position Semi-Fowlers Blood Pressure Location Right Arm Pulse Ox 97 Oxygen Delivery Method Room Air Weight Weight: 106.2 kg Body Mass Index (BMI) 35.6 Physical Exam Narrative GENERAL: Patient in no apparent distress HEENT: Atraumatic; normocephalic EYES; Anicteric, Normal Conjunctiva NECK; supple, normal thyroid, RESPIRATORY: Diminished to auscultation CARDIOVASCULAR: Regular S1 S2, GI: soft, normoactive bowel sounds, : No Renal angle tenderness; EXTREMITIES: Bipedal edema with venous stasis MUSCULOSKELETAL: no muscle wasting NEURO: Awake; no lateralizing signs. SKIN: As described above PSYCH; Flat affect Results Lab / Micro Data 05/23/23 06:00 05/23/23 06:00 Labs: Laboratory Results - last 24 hr 05/23/23 06:00: WBC 11.6 H, RBC 3.29 L, Hgb 9.3 L, Hct 30.9 L, MCV 93.9, MCH 28.3, MCHC 30.1 L, RDW Std Deviation 50.2 H, RDW Coeff of [place] 14.6, Plt Count 249, MPV 11.0, Immature Gran % (Auto) 0.500, Neut % (Auto) 82.3 H, Lymph % (Auto) 8.2 L, [place] % (Auto) 7.2, Eos % (Auto) 1.5, Baso % (Auto) 0.3, Absolute Neuts (auto) 9.5 H, Absolute Lymphs (auto) 0.95, Nucleated RBC % 0, PT 18.4 H, INR 1.5, APTT 43.0 H, Sodium 134 L, Potassium 4.0, Chloride 99, Carbon Dioxide 31.0, Anion Gap 4 L, BUN 41 H, Creatinine 5.82 H, Estim Creat Clear Calc 11.54, Est GFR (MDRD) Af Amer 12 L, Est GFR (MDRD) Non-Af 10 L, BUN/Creatinine Ratio 7.0 L, Glucose 150 H, Calcium 10.0, Total Bilirubin 0.50, AST 11 L, ALT 12 L, Alkaline Phosphatase 92, Troponin I High Sens 74, Total Protein 7.1, Albumin 3.1 L, Globulin 4.0, Albumin/Globulin Ratio 0.8 L 05/23/23 06:25: Ammonia 16.0 05/23/23 07:56: Urine Color Yellow, Urine Clarity Sl. Cloudy, Urine pH 8.0, Ur Specific [place] 1.010, Urine Protein 100 H, Urine Glucose (UA) Normal, Urine Ketones Negative, Urine Occult Blood Negative, Urine Nitrite Negative, Urine Bilirubin Negative, Urine Urobilinogen Normal, Ur Leukocyte Esterase 25 H, Urine RBC 0 SEEN, Urine WBC 0-5 SEEN, Ur Squamous Epith Cells 0-5 SEEN, Urine Bacteria 0 SEEN, Urine Mucus 0 SEEN 05/23/23 09:08: Lactic Acid 1.3, Troponin I High Sens 73 Micro: Microbiology 05/23/23 06:00 Mucosa - Nose SARS-CoV-2, Influenza & RSV (PCR) - Final Imagaing Radiology Impression Brain CT 05/23/23 06:00 IMPRESSION: No acute abnormality. 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 CT angiogram and/or MRI may be helpful to evaluate for acute infarct as clinically indicated. Electronically Signed: Poly Juarez MD at 7:14 EST , Chest X-Ray 05/23/23 06:00 IMPRESSION: Increased bibasilar airspace disease with no change in pleural effusions. Pneumonia versus edema. Electronically Signed: Poly Juarez MD at 6:56 EST , Assessment & Plan Assessment/Plan (1) Acute encephalopathy: PLAN: Plan Patient is an 82-year-old gentleman admitted with acute encephalopathy 1. Acute encephalopathy ? Secondary to patient impaired kidney function, suspected superimposed pneumonia on a recent COVID infection. Admitted to monitored bed for further management 2. Pneumonia Diagnosed suspected multidrug-resistant organism given patient recent hospitalization as well as his recent COVID infection. Patient admitted to a monitored bed started on broad-spectrum antibiotic therapy cultures blood and sputum signs please on supplemental oxygen as needed titrated to keep saturation greater than 90 3. Acute on chronic congestive heart failure ? Patient has known EF of 20% with severe global LV systolic dysfunction. Patient started on Lasix consult placed to nephrology for dialysis to help manage patient fluid status 4. End-stage renal disease ? Patient is on dialysis on Wednesdays and Fridays consult placed to Dr. Mullins for dialysis 5. Elevated troponin ? Secondary to myocardial injury from his congestive heart failure, pneumonia and CHF will monitor on continuous telemetry 6. Dyslipidemia -Patient is on statin therapy, continued at home dose 7. BPH with lower urinary obstructive symptoms - Patient treated with tamsulosin as well as finasteride 8. Hypothyroidism - Patient is on levothyroxine home dose continued 9. Coronary artery disease ? With previous PCI with YESENIA to mid RCA lesion. Patient is on guideline directed medical therapy 10. Hypertension - Blood pressure controlled, home medications continued with dose adjustment as needed 11. Peripheral arterial disease ? Patient is on antiplatelet therapy as well as statin therapy 12. Anemia - Secondary to chronic disorder monitoring H&H and transfuse if patient becomes symptomatic or hemoglobin falls below 7 13. GERD ? On PPI 14. Class II obesity with BMI of 36 ? Complicating care 15. Anxiety disorder ? Patient is on BuSpar which is currently being held given his encephalopathy. 16. DVT prophylaxis ? SC heparin Code status: DNRCCA, DNI (obtained from patient recent hospitalization) Time spent in the patient's overall evaluation,decision-making process, review of diagnostic data, adjustment of management, discussion with other providers, nursing nursing and ancillary staff involved in patient's care documentation, 75 Minutes Charges/Coding Visit Charges Inpatient E&M: 80509 Init Hosp L3
--- OUTSIDE RECORDS SUMMARY | 2023-05-23 11:09 | XMS RPT_ITS | CCD ---
Author Name Unknown Address [address] [place] [address] Organization [facility] Care Team Providers Care [employer]ogs[employer] Stock Clerk Name Role Phone ARABELLA VILLARREAL MD Admitting [...] Reaction(s) Facility (1 source) Doxazosin Drug Allergy [facility] Repository (2 sources) Lisinopril; Translations: [LISINOPRIL] Drug Allergy 0 [facility] Repository (2 sources) Morphine; Translations: [MORPHINE] Drug Allergy 0 [facility] Repository (1 source) sun exposure Drug allergy (disorder) [facility] Repository (2 sources) Doxazosin; Translations: [DOXAZOSIN] Drug Allergy 0 Unknown [facility] (2 sources) Fosinopril; Translations: [FOSINOPRIL] Drug Allergy 0 Unknown [facility] (1 source) Lisinopril Drug Allergy 0 Unknown [facility] (1 source) Morphine Drug Allergy 0 Mental Status Change [facility] Medications Completed/Discontinued Medications Medication Drug Class(es) [...] source) Long-term current use of anticoagulant; Translations: [intermediate card tender (current) use of anticoagulants] Onset: 02-02-2020 02-02-2020 [...] 98.6 [degF] Nicolas Mayorga APRN.CNP Work Phone: [facility] 09-03-2022 08:14-0400 Body weight 112.49 kg Nicolas Mayorga APRN.CNP Work Phone: [facility] 09-03-2022 08:14-0400 Diastolic blood pressure 100 mm[Hg] Nicolas Mayorga APRN.CNP Work Phone: [facility] 09-03-2022 08:14-0400 Heart rate 102 /min Nicolas Mayorga APRN.CNP Work Phone: [facility] 09-03-2022 08:14-0400 Respiratory rate 18 /min Nicolas Mayorga APRN.CNP Work Phone: [facility] 09-03-2022 08:14-0400 SaO2% (BldA) [Mass fraction] 96 % Nicolas Mayorga APRN.CNP Work Phone: [facility] 09-03-2022 08:14-0400 Systolic blood pressure 168 mm[Hg] Nicolas Mayorga APRN.CUSTOMER TECHNICAL SERVICES MANAGER Work Phone: [facility] Encounters Encounter Date Encounter Type Care Provider Facility Start: 09-03-2022 End: 09-03-2022 ambulatory Facility:[facility] Start: 09-03-2022 End: 09-03-2022 Patient encounter procedure Nicolas Mayorga APRN.CNP Work Phone: [facility] Plan of Treatment Date Care Activity Detail Author Start: 12-29-2022 Influenza vaccination INFLUENZ A (Season Ended) [facility] Start: 04-30-2022 ADVANCE DIRECTIVE DISCUSSION ADVANCE DIRECTIVE DISCUSSION [facility] Start: 04-28-2021 COVID-19 VACCINE (4 - Booster for Pfizer series) COVID-19 VACCINE (4 - Booster for Pfizer series) [facility] Start: 03-12-2018 DIABETES SCREEN DIABETES SCREEN [facility] Start: 1957 SHINGRIX VACCINE (1 of 2) SHINGRIX VACCINE (1 of 2) [facility] Start: 1957 Urine microalbumin profile DTAP,TDAP,TD (1 - Tdap) [facility] Start: 1944 PNEUMOCOCCAL: 65+ (1 - PCV) PNEUMOCOCCAL: 65+ (1 - PCV) [facility] Radiologic exam ches t 2 views XR CHEST 2V FRONTAL/LAT Radiology STAT SOB (shortness of breath) Ordered: 09/03/2022 [facility] Work Phone: Payers Date Payer Category Payer Medicaid [facility] MEDICAID MYC ARE [facility] MEDICAID [id number] 2022-Present [phone] [address] [place] [address] Medicaid [id number] 2022 Medicare UHC MEDICARE MYC ARE UHC MEDICARE [id number] 2022-Present [phone] [address] [place] [address] Medicare [id number] 2022 Medicare [id number] 1938 Unknown [id number] 1938 Unknown [id number] 1938 Unknown [id number] 1938 Unknown [id number] 1938 Unknown [id number] 1938 Unknown [id number] 1938 Unknown [id number] 1938 Unknown [id number] 1938 Unknown [id number] Medicaid [id number] Medicaid [id number] Medicare [id number] Social History Date Type Detail Facility Start: [facility]-03-2022 [facility] Work Phone: End: 04-30-1987 History of tobacco use Current smoker [facility] Work Phone: End: 04-30-1987 History of tobacco use Cigarette Smoker [facility] Work Phone: Start: 09-03-2022 Tobacco use and exposure Former smokeless tobacco user [facility] Work Phone: End: 04-30-1987 History of tobacco use User of smokeless tobacco [facility] Work Phone: Start: 1940 Sex Assigned At Not on file [facility] Progress note 09-03-2022 Note Date & Type Note Facility 09-03-2022 Note HNO ID: [id number] Author: Nicolas Mayorga APRN.CUSTOMER TECHNICAL SERVICES MANAGER Service: ? Author Type: Nurse Practitioner Type: [...] NASAL) 0.65 % nasal spray Use 1 Alpine in the nose every 2 hours as [...] XR CHEST 2V FRONTAL/LAT Nicolas Mayorga APRN.EMILIA [facility] History of Present illness Narrative 09-03-2022 [...] NASAL) 0.65 % nasal spray Use 1 Alpine in the nose every 2 hours as [...] Nicolas Mayorga APRN.EMILIA documented in this encounter [facility] Evaluation note Note Date & Type Note Facility documented in this encounter [facility] Summary Purpose Family History No Family History Records FoundNo Family History Records Found Advance Directives No Advanced Directives Records FoundNo Advanced Directives Records Found Additional Source Comments (unrecognized sect ion and content) No Status Records FoundNo Status Records Found INFORMATION SOURCE (unrecogn ized section and content) DATE CREATED AUTHOR AUTHOR'S ORGANIZ ATION 09/04/2022 [facility] Source Comments (unrecognize d section and content) In the event this informatio n is protected by the Federal Confidentiality of Alcohol and Drug Abuse Patient Records regulations: The Federal rules restrict any use of the information to criminally investigate or prosecute any alcohol or drug abuse patient.[facility] Reason for Visit (unrecogniz ed section [...] BE BASED ON THE PRIMARY CLINICAL RECORDS. [facility] provides no warranty or guarantee of the accuracy or completeness of information in this document.
[2023-05-23 11:39] LABS: BNP,B-Type NATRIURETIC PEPTIDE 1057.6 pg/mL (0-100)
[2023-05-23] MEDS: PureFlow B 3K Dialysis Soln 1 BAG 6 BAG PF (12:21)
[2023-05-23] MEDS: 0.9% Normal Saline 1,000 ML IV.SOLN. 1000 ML OPERA.SITE (12:21)
--- NOTE | 2023-05-23 13:24 | CASEMGMT ---
Per nursing admission questions patient does not have advance directives and is not interested in documents. Anita Brito [employer]
[2023-05-23] MEDS: Acetaminophen 325 MG Tablet 650 MG PO (13:39)
[2023-05-23] MEDS: Pravastatin 20 MG Tablet PO (16:07)
[2023-05-23] MEDS: Clopidogrel Bisulfate 75 MG Tablet PO (16:09)
[2023-05-23] MEDS: Multivitamin (Healthy Eyes) Capsule 1 CAP PO (16:09)
[2023-05-23] MEDS: Aspirin E.C. 81 MG Tablet PO (16:09)
[2023-05-23] MEDS: Finasteride 5 MG Tablet PO (16:09)
[2023-05-23] MEDS: Furosemide 100 MG/10 ML Vial 60 MG IV ×2 (16:09→20:56)
[2023-05-23] MEDS: Pantoprazole Sodium 40 MG Tablet PO (16:09)
[2023-05-23] MEDS: Tamsulosin HCl 0.4 MG Capsule 0.400000000000000022 MG PO (17:41)
[2023-05-23] MEDS: guaiFENesin 600 MG Tablet PO (20:56)
[2023-05-23] MEDS: Montelukast 10 MG Tablet PO (20:56)
[2023-05-23] MEDS: 0.9% Saline Lock 10 ML Syringe IV (20:57)
--- NOTE | 2023-05-23 22:44 | PCM.HOSP.N ---
Hospitalist Note Patient with increased agitation, attempting to get out of bed. Will trial seroquel low dose x 1. Normally on buspar at home but this in addition to sedating pain regimen was held secondary to encephalopathy upon presentation.
[2023-05-23] MEDS: QUEtiapine 25 MG Tablet PO (22:50)
[2023-05-23] MEDS: MELATONIN 3 MG TABLET PO (22:51)
[2023-05-24 03:00] VITALS: BP 139/97; PULSE 92; RESP 16; TEMP 36.6; O2SAT 95
[2023-05-24] MEDS: Furosemide 100 MG/10 ML Vial 60 MG IV ×3 (05:57→21:19)
[2023-05-24] MEDS: 0.9% Saline Lock 10 ML Syringe IV (05:58)
[2023-05-24 06:03] LABS: Absolute Lymphocyte Count 1.14 X10^3/uL (0.83-4.51); Absolute Neutrophil Count 6.2 X10^3/uL (2.0-7.7); Basophil# 0.04 X10^3/uL; Basophil% 0.5 % (0-1); Eosinophils% 3.6 % (0-5); Hematocrit 27.2 % (40-54); Hemoglobin 8.2 g/dL (13.0-16.5); Lymphocyte # 1.14 X10^3/ul (0.83-4.51); Lymphocyte % 13.5 % (19-41); Mean Corp Hgb Conc 30.1 g/dL (32-36); Mean Corpuscular Hgb 28.2 pg (27.0-32.0); Mean Corpuscular Volume 93.5 fL (80-94); Mean Platelet Vol. 9.9 fl (6.2-12.0); Monocyte# 0.75 X10^3/uL; Monocyte% 8.9 % (0-10); NRBC Flagged by Analyzer 0 % (0-5); Neutrophil # 6.17 X10^3/uL (2.7-7.7); Neutrophil % 73.1 % (47-70); Platelet Count 198 K/mm3 (150-450); RBC Distribution Width CV 14.6 % (11.6-14.6); RBC Distribution Width SD 50.3 fl (35.1-43.9); Red Blood Count 2.91 M/mm3 (4.6-6.2); White Blood Count 8.4 K/mm3 (4.4-11.0)
[2023-05-24 06:24] LABS: Anion Gap 7 (5-15); BUN 40 mg/dL (7-18); BUN/Creat Ratio 7.4 RATIO (10-20); Calcium,Total 9.5 mg/dL (8.5-10.1); Chloride 101 mmol/L (98-107); Creatinine, Serum 5.38 mg/dL (0.70-1.30); EST Glomerular Filtration Rate 11 mL/min (>60); Est Glom Filt Rate - Afr Amer 13 mL/min (>60); Estimated Creatinine Clearance 12.07 ml/min; Glucose 150 mg/dL (74-106); Magnesium 2.4 mg/dL (1.6-2.6); Potassium 4.1 mmol/L (3.5-5.1); Sodium Level 138 mmol/L (136-145)
--- NOTE | 2023-05-24 07:49 | PCM.PN.HOSP ---
Reason for Visit Reason for Visit: Patient is an 82-year-old gentleman admitted with altered mental status. An assessment of acute encephalopathy secondary to pneumonia made. Patient was also found to be in acute congestive heart failure admitted to a monitored bed for further management. Per nursing staff patient has had episodes of confusion Objective Data Objective Data Vital Signs: Vital Signs Temp Pulse Resp BP Pulse Ox O2 Del Method 97.8 F 92 16 139/97 H 95 Room Air 05/24/23 03:00 05/24/23 03:00 05/24/23 03:00 05/24/23 03:00 05/24/23 03:00 05/24/23 03:30 Oxygen Delivery Method Room Air Weight: 106.2 kg Body Mass Index (BMI) 35.6 Intake & Output: Intake and Output for Last 24 Hours 05/22/23 05/23/23 05/24/23 23:59 23:59 23:59 Intake Total 705 / 705 Output Total 2470 / 2470 0 / 0 Balance -1765 / -1765 0 / 0 Lab / Micro Data 05/24/23 05:49 05/24/23 05:49 Labs: Laboratory Results - last 24 hr 05/23/23 06:00: B-Natriuretic Peptide 1057.6 H 05/23/23 07:56: Urine Color Yellow, Urine Clarity Sl. Cloudy, Urine pH 8.0, Ur Specific [place] 1.010, Urine Protein 100 H, Urine Glucose (UA) Normal, Urine Ketones Negative, Urine Occult Blood Negative, Urine Nitrite Negative, Urine Bilirubin Negative, Urine Urobilinogen Normal, Ur Leukocyte Esterase 25 H, Urine RBC 0 SEEN, Urine WBC 0-5 SEEN, Ur Squamous Epith Cells 0-5 SEEN, Urine Bacteria 0 SEEN, Urine Mucus 0 SEEN 05/23/23 09:08: Lactic Acid 1.3, Troponin I High Sens 73 05/24/23 05:49: WBC 8.4, RBC 2.91 L, Hgb 8.2 L, Hct 27.2 L, MCV 93.5, MCH 28.2, MCHC 30.1 L, RDW Std Deviation 50.3 H, RDW Coeff of Colleen 14.6, Plt Count 198, MPV 9.9, Immature Gran % (Auto) 0.400, Neut % (Auto) 73.1 H, Lymph % (Auto) 13.5 L, [place] % (Auto) 8.9, Eos % (Auto) 3.6, Baso % (Auto) 0.5, Absolute Neuts (auto) 6.2, Absolute Lymphs (auto) 1.14, Nucleated RBC % 0, Sodium 138, Potassium 4.1, Chloride 101, Carbon Dioxide 30.0, Anion Gap 7, BUN 40 H, Creatinine 5.38 H, Estim Creat Clear Calc 12.07, Est GFR (MDRD) Af Amer 13 L, Est GFR (MDRD) Non-Af 11 L, BUN/Creatinine Ratio 7.4 L, Glucose 150 H, Calcium 9.5, Magnesium 2.4 Micro: Microbiology 05/23/23 14:48 Mucosa - Nasopharyngeal Respiratory Panel (PCR) - Final 05/23/23 11:36 Sputum, Expectorated/Coughed Gram Stain - Final 05/23/23 07:56 Urine, Clean Catch Legionella Antigen - Final 05/23/23 07:56 Urine, Clean Catch Streptococcus pneumoniae Antigen (M - Final 05/23/23 06:00 Mucosa - Nose SARS-CoV-2, Influenza & RSV (PCR) - Final Physical Exam Narrative GENERAL: Resting comfortably HEENT: Atraumatic; normocephalic EYES; Anicteric, Normal Conjunctiva NECK; supple, normal thyroid, RESPIRATORY: Diminished to auscultation CARDIOVASCULAR: Regular S1 S2, GI: soft, normoactive bowel sounds, : No Renal angle tenderness; EXTREMITIES: Bipedal edema with venous stasis MUSCULOSKELETAL: no muscle wasting NEURO: no lateralizing signs. SKIN: As described above PSYCH; Flat affect Assessment & Plan Assessment/Plan (1) Acute encephalopathy: PLAN: Plan Patient is an 82-year-old gentleman admitted with acute encephalopathy 1. Acute encephalopathy ? Secondary to patient impaired kidney function, suspected superimposed pneumonia on a recent COVID infection. Admitted to monitored bed for further management ? 05/24/2023 do suspect patient psychotropic medication as well as narcotic was contributing to his encephalopathy given his impaired kidney function 2. Pneumonia Diagnosed suspected multidrug-resistant organism given patient recent hospitalization as well as his recent COVID infection. Patient admitted to a monitored bed started on broad-spectrum antibiotic therapy cultures blood and sputum signs please on supplemental oxygen as needed titrated to keep saturation greater than 90 ? 05/24/2023 not requiring any oxygen at this point 3. Acute on chronic congestive heart failure with reduced ejection fraction ? Patient has known EF of 20% with severe global LV systolic dysfunction. Patient started on Lasix consult placed to nephrology for dialysis to help manage patient fluid status ? 05/24/2023; patient is in negative fluid balance of 1.7 L since admission. 4. End-stage renal disease ? Patient is on dialysis on Wednesdays and Fridays consult placed to Dr. Mullins for dialysis 5. Elevated troponin ? Secondary to myocardial injury from his congestive heart failure, pneumonia and CHF will monitor on continuous telemetry 6. Dyslipidemia -Patient is on statin therapy, continued at home dose 7. BPH with lower urinary obstructive symptoms - Patient treated with tamsulosin as well as finasteride 8. Hypothyroidism - Patient is on levothyroxine home dose continued 9. Coronary artery disease ? With previous PCI with YESENIA to mid RCA lesion. Patient is on guideline directed medical therapy 10. Hypertension - Blood pressure controlled, home medications continued with dose adjustment as needed 11. Peripheral arterial disease ? Patient is on antiplatelet therapy as well as statin therapy 12. Anemia - Secondary to chronic disorder monitoring H&H and transfuse if patient becomes symptomatic or hemoglobin falls below 7 13. GERD ? On PPI 14. Class II obesity with BMI of 36 ? Complicating care 15. Anxiety disorder ? Patient is on BuSpar which is currently being held given his encephalopathy. 16. DVT prophylaxis ? SC heparin Time spent in the patient's overall evaluation,decision-making process, review of diagnostic data, adjustment of management, discussion with other providers, nursing nursing and ancillary staff involved in patient's care documentation, 50 Minutes Charges/Coding Visit Charges Inpatient E&M: 32742 Subs Hosp L3
[2023-05-24 08:10] VITALS: BP 153/91; PULSE 95; RESP 16; TEMP 36.5; O2SAT 96
[2023-05-24] MEDS: guaiFENesin 600 MG Tablet PO ×2 (08:14→21:19)
[2023-05-24] MEDS: amLODIPine 5 MG Tablet PO (08:14)
[2023-05-24] MEDS: Multivitamin (Healthy Eyes) Capsule 1 CAP PO ×2 (08:15→18:06)
[2023-05-24] MEDS: Loratadine 10 MG Tablet PO (08:15)
[2023-05-24] MEDS: CARBOXYMETHYLCELLULOSE SODIUM 1 DRP DROPS OPHTHALMIC ×2 (08:21→21:19)
[2023-05-24] MEDS: Ceftriaxone 2 GM in 0.9% Normal Saline (50mL MB+) 50 ML IV (09:34)
--- NOTE | 2023-05-24 09:40 | CASEMGMT ---
Discharge Planning Updates faxed to [facility]. Requested confirmation that patient is able to return. Awaiting response. Stephanie Solo, Discharge Planning Asst.
[2023-05-24] MEDS: Azithromycin 500 MG in Dextrose 5%-Water (250mL Bag) 250 ML 250 MG IV (10:20)
[2023-05-24] MEDS: Levothyroxine 50 MCG Tablet PO (10:21)
--- NOTE | 2023-05-24 10:22 | NUR.TO.PHY ---
Dialysis Coordinator spoke w/ patient chronic HD center [facility]. Pt was scheduled for a fistulagram in [place] r/t poor fistual waste clearance. Pt son confirmed this appt and asked if Dr. Brown would be able to perform a fistulagram during this admission . Dialysis Coordinator discussed with Nephrology.
--- NOTE | 2023-05-24 12:23 | CON.PCM.RE_ITS ---
Assessment & Plan Assessment/Plan (1) ESRD on hemodialysis: PLAN: On hemodialysis Sunday, Sunday, Sunday. Last dialysis was yesterday continue as per schedule. Anemia. Usually gets JUAN CARLOS with dialysis. Will request outpatient records HPI Consult Data Date of Consult: 05/24/23 HPI Narrative Reason for Consultation: ESRD. HPI Narrative: ARIANNA GUILLERMO, is a 82 M who presents to the hospital with shortness of breath, altered mental status. Nephrology on consultation due to ESRD. Usually on dialysis Sunday, Sunday, Sunday schedule. He did receive dialysis yesterday. Today he appears to be asymptomatic. Breathing is at baseline. Altered mental status was thought to be related to medications. No significant edema. [facility] Medical History Abnormal electrocardiogram Abnormal nuclear stress test Acute renal insufficiency Angina pectoris Arthritis Atherosclerosis of [place] coronary artery of [place] heart without angina pectoris Benign essential hypertension Benign prostatic hypertrophy without lower urinary tract symptoms BMI 40.0-44.9, adult Breast mass, left Chest pain Chest pain on exertion Chronic anemia Chronic kidney disease Chronic renal failure, stage 3 (moderate) Coronary artery disease Diastolic heart failure End stage renal disease Essential hypertension Fatigue Gastroesophageal reflux disease History of heart failure Hyperlipidemia Hypertension Hypokalemia Long-term use of high-risk medication Melanotic stools Normochromic normocytic anemia ALY (obstructive sleep apnea) Pulmonary hypertension Shortness of breath Sinus bradycardia Skin lesion Home Medications finasteride 5 mg tablet 5 mg PO 1200 PROSTATE 04/01/14 [History Last Taken 05/06/23] nitroglycerin 0.4 mg sublingual tablet 0.4 mg sublingual Q5M PRN Chest Pain 02/01/15 [History Last Taken 02/27/15] acetaminophen 325 mg capsule 650 mg PO TID pain/fever 02/20/18 [History Last Taken 05/07/23] levothyroxine 50 mcg tablet 50 mcg PO 1200 THYROID 05/02/18 [History Last Taken 05/04/23] loratadine 10 mg tablet 10 mg PO DAILY ALLERGIES 10/03/18 [History Last Taken 05/06/23] tamsulosin 0.4 mg capsule (Flomax) 0.4 mg PO 1700 PROSTATE 04/02/19 [History Last Taken 05/06/23] buspirone 5 mg tablet 5 mg PO BID ANXIETY 12/25/19 [History Last Taken 05/07/23] fluticasone propionate 50 mcg/actuation nasal spray,suspension (Allergy Relief (fluticasone)) 1 spray intranasal 1200 NASAL CONGESTION 05/05/22 [History Last Taken 05/04/23] guaifenesin 600 mg tablet, extended release 12 hr (Mucinex) 600 mg PO BID MUCUS RELIEF 05/05/22 [History Last Taken Unknown] montelukast 10 mg tablet 10 mg PO QHS ALLERGIES 05/05/22 [History Last Taken 05/06/23] omega 5-aew-use-fish oil 60 mg-90 mg-500 mg capsule (Fish Oil) 1 cap PO BID SUPPLEMENT 05/05/22 [History Last Taken 05/07/23] pantoprazole 40 mg tablet,delayed release 40 mg PO 1200 ACID REFLUX 05/05/22 [History Last Taken 05/04/23] amlodipine 5 mg tablet 5 mg PO DAILY BLOOD PRESSURE 05/07/23 [History Last Taken 05/04/23] aspirin 81 mg tablet,delayed release 81 mg PO 1200 HEART HEALTH 05/07/23 [History Last Taken 05/04/23] clopidogrel 75 mg tablet 75 mg PO 1200 BLOOD THINNER 05/07/23 [History Last Taken 05/06/23] hydromorphone 4 mg tablet 4 mg PO Q4H PRN PAIN 05/07/23 [History Last Taken 05/07/23] multivitamin-iron 9 mg-folic acid 400 mcg-calcium and minerals tablet (Thera-M) 1 tab PO 1200 SUPPLEMENT 05/07/23 [History Last Taken 05/05/23] pravastatin 20 mg tablet 20 mg PO 1700 CHOLESTEROL 05/07/23 [History Last Taken 05/06/23] torsemide 20 mg tablet 20 mg PO DAILY EDEMA 05/07/23 [History Last Taken 05/06/23] vit C 250 mg-vit E 90 mg-zinc 40 mg-copper 1 hl-ciquzw-ronzwo capsule (PreserVision AREDS-2) 1 tab PO BID SUPPLEMENT 05/07/23 [History Last Taken ] Allergy/AdvReac Type Severity Reaction Status Date / Time doxazosin mesylate Allergy Hives Verified 05/23/23 05:30 [From Cardura] fosinopril sodium Allergy Hives Verified 05/23/23 05:30 [From Monopril] lisinopril Allergy Hives Verified 05/23/23 05:30 morphine Allergy Other Verified 05/23/23 05:30 Family History Father Hypertension Cancer Brother CAD (coronary artery disease) Mother Hypertension Sister Hypertension Son Atrial fibrillation Surgical History history fistulogram (~07/27/17) History of angioplasty History of bilateral hip arthroplasty History of left breast biopsy (~06/2018) 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 S/P peripheral artery angioplasty (~03/2022) Status post right partial knee replacement Social History household members: none housing: [facility] Smoking Status: Former smoker Tobacco: How many years used: 20 second hand exposure: No alcohol intake: never substance use type: does not use caffeine: No what type of physical activity do you participate in: none ROS ROS Narrative Negative except above Physical Exam Narrative Alert awake oriented x 3 no obvious distress no pallor no icterus no JVD s1s2 no murmurs lungs clear abdomen soft no organomegaly no edema no cyanosis Lab / Micro Data 05/24/23 05:49 05/24/23 05:49 Labs: Laboratory Results - last 24 hr 05/24/23 05:49: WBC 8.4, RBC 2.91 L, Hgb 8.2 L, Hct 27.2 L, MCV 93.5, MCH 28.2, MCHC 30.1 L, RDW Std Deviation 50.3 H, RDW Coeff of Colleen 14.6, Plt Count 198, MPV 9.9, Immature Gran % (Auto) 0.400, Neut % (Auto) 73.1 H, Lymph % (Auto) 13.5 L, [place] % (Auto) 8.9, Eos % (Auto) 3.6, Baso % (Auto) 0.5, Absolute Neuts (auto) 6.2, Absolute Lymphs (auto) 1.14, Nucleated RBC % 0, Sodium 138, Potassium 4.1, Chloride 101, Carbon Dioxide 30.0, Anion Gap 7, BUN 40 H, Creatinine 5.38 H, Estim Creat Clear Calc 12.07, Est GFR (MDRD) Af Amer 13 L, Est GFR (MDRD) Non-Af 11 L, BUN/Creatinine Ratio 7.4 L, Glucose 150 H, Calcium 9.5, Magnesium 2.4 Micro: Microbiology 05/23/23 14:48 Mucosa - Nasopharyngeal Respiratory Panel (PCR) - Final 05/23/23 11:36 Sputum, Expectorated/Coughed Gram Stain - Final 05/23/23 07:56 Urine, Clean Catch Legionella Antigen - Final 05/23/23 07:56 Urine, Clean Catch Streptococcus pneumoniae Antigen (M - Final 05/23/23 06:00 Mucosa - Nose SARS-CoV-2, Influenza & RSV (PCR) - Final
[2023-05-24] MEDS: Pantoprazole Sodium 40 MG Tablet PO (13:45)
[2023-05-24] MEDS: Clopidogrel Bisulfate 75 MG Tablet PO (13:46)
[2023-05-24] MEDS: Fluticasone 0.05% 1 SPRAY NASAL.SRY NASAL (13:47)
[2023-05-24] MEDS: Aspirin E.C. 81 MG Tablet PO (13:47)
[2023-05-24] MEDS: Finasteride 5 MG Tablet PO (13:47)
[2023-05-24 13:51] VITALS: BP 102/60; PULSE 96; RESP 16; TEMP 36.8; O2SAT 94
[2023-05-24 14:03] VITALS: O2SAT 87
[2023-05-24 18:03] VITALS: BP 139/79; PULSE 91; RESP 16; TEMP 37.2; O2SAT 95
[2023-05-24] MEDS: Pravastatin 20 MG Tablet PO (18:06)
[2023-05-24] MEDS: Tamsulosin HCl 0.4 MG Capsule 0.400000000000000022 MG PO (18:07)
[2023-05-24 19:21] VITALS: O2SAT 85; O2SAT 96
[2023-05-24] MEDS: Montelukast 10 MG Tablet PO (21:19)
[2023-05-25] VITALS (16 sets, daily range): BP systolic 100–293; BP diastolic 49–88; PULSE 88–100; RESP 14–18; TEMP 36.6–37.1; O2SAT 94–100; BMI 35.6; BMI 35.0
[2023-05-25 05:03] LABS: Absolute Lymphocyte Count 1.29 X10^3/uL (0.83-4.51); Absolute Neutrophil Count 5.1 X10^3/uL (2.0-7.7); Basophil# 0.04 X10^3/uL; Basophil% 0.5 % (0-1); Eosinophil# 0.34 X10^3/uL; Eosinophils% 4.6 % (0-5); Hematocrit 27.8 % (40-54); Hemoglobin 8.6 g/dL (13.0-16.5); Lymphocyte # 1.29 X10^3/ul (0.83-4.51); Lymphocyte % 17.4 % (19-41); Mean Corp Hgb Conc 30.9 g/dL (32-36); Mean Corpuscular Volume 93.6 fL (80-94); Mean Platelet Vol. 10.4 fl (6.2-12.0); Monocyte# 0.66 X10^3/uL; Monocyte% 8.9 % (0-10); NRBC Flagged by Analyzer 0 % (0-5); Neutrophil # 5.05 X10^3/uL (2.7-7.7); Neutrophil % 68.3 % (47-70); Platelet Count 208 K/mm3 (150-450); RBC Distribution Width CV 14.9 % (11.6-14.6); RBC Distribution Width SD 51.3 fl (35.1-43.9); Red Blood Count 2.97 M/mm3 (4.6-6.2); White Blood Count 7.4 K/mm3 (4.4-11.0)
[2023-05-25 05:24] LABS: Anion Gap 6 (5-15); BUN 47 mg/dL (7-18); Calcium,Total 9.2 mg/dL (8.5-10.1); Chloride 103 mmol/L (98-107); Creatinine, Serum 6.72 mg/dL (0.70-1.30); EST Glomerular Filtration Rate 8 mL/min (>60); Est Glom Filt Rate - Afr Amer 10 mL/min (>60); Estimated Creatinine Clearance 9.67 ml/min; Glucose 157 mg/dL (74-106); Potassium 3.6 mmol/L (3.5-5.1); Sodium Level 138 mmol/L (136-145)
[2023-05-25] MEDS: Furosemide 100 MG/10 ML Vial 60 MG IV ×3 (05:25→21:05)
[2023-05-25] MEDS: Levothyroxine 50 MCG Tablet PO (05:25)
[2023-05-25] MEDS: 0.9% Normal Saline 1,000 ML IV.SOLN. 1000 ML OPERA.SITE (07:55)
[2023-05-25] MEDS: PureFlow B 3K Dialysis Soln 1 BAG 6 BAG PF (07:56)
[2023-05-25] MEDS: Epoetin Alfa epbx 10,000 UNITS/ML 10000 UNIT IV (08:38)
--- NOTE | 2023-05-25 08:53 | PN.HOSP_ITS ---
Reason for Visit Reason for Visit: Diagnoses Encephalopathy, unspecified (05/23/23) End stage renal disease (05/23/23) Dependence on renal dialysis (05/23/23) Subjective Subjective Patient seen level of sensorium improving. Did have a discussion with patient's son regarding his current clinical condition as well as disposition plan. Objective Data Objective Data Vital Signs: Vital Signs Temp Pulse Resp BP Pulse Ox O2 Del Method O2 Flow Rate 98.1 F 91 14 152/87 H 97 Room Air 2 05/25/23 05:21 05/25/23 08:29 05/25/23 08:29 05/25/23 08:29 05/25/23 07:35 05/25/23 08:29 05/24/23 19:21 Oxygen Flow Rate (L/min) 2 Oxygen Delivery Method Room Air Weight: 106.2 kg Body Mass Index (BMI) 35.6 Intake & Output: Intake and Output for Last 24 Hours 05/23/23 05/24/23 05/25/23 23:59 23:59 23:59 Intake Total 705 / 705 905 / 905 Output Total 2470 / 2470 0 / 0 Balance -1765 / -1765 905 / 905 Lab / Micro Data 05/25/23 04:50 05/25/23 04:50 Labs: Laboratory Results - last 24 hr 05/25/23 04:50: WBC 7.4, RBC 2.97 L, Hgb 8.6 L, Hct 27.8 L, MCV 93.6, MCH 29.0, MCHC 30.9 L, RDW Std Deviation 51.3 H, RDW Coeff of Colleen 14.9 H, Plt Count 208, MPV 10.4, Immature Gran % (Auto) 0.300, Neut % (Auto) 68.3, Lymph % (Auto) 17.4 L, [place] % (Auto) 8.9, Eos % (Auto) 4.6, Baso % (Auto) 0.5, Absolute Neuts (auto) 5.1, Absolute Lymphs (auto) 1.29, Nucleated RBC % 0, Sodium 138, Potassium 3.6, Chloride 103, Carbon Dioxide 29.0, Anion Gap 6, BUN 47 H, Creatinine 6.72 H, Estim Creat Clear Calc 9.67, Est GFR (MDRD) Af Amer 10 L, Est GFR (MDRD) Non-Af 8 L, BUN/Creatinine Ratio 7.0 L, Glucose 157 H, Calcium 9.2 Micro: Microbiology 05/23/23 14:48 Mucosa - Nasopharyngeal Respiratory Panel (PCR) - Final 05/23/23 11:36 Sputum, Expectorated/Coughed Gram Stain - Final 05/23/23 07:56 Urine, Clean Catch Legionella Antigen - Final 05/23/23 07:56 Urine, Clean Catch Streptococcus pneumoniae Antigen (M - Final 05/23/23 06:00 Mucosa - Nose SARS-CoV-2, Influenza & RSV (PCR) - Final Physical Exam Narrative GENERAL: Resting comfortably HEENT: Atraumatic; normocephalic EYES; Anicteric, Normal Conjunctiva NECK; supple, normal thyroid, RESPIRATORY: Diminished to auscultation CARDIOVASCULAR: Regular S1 S2, GI: soft, normoactive bowel sounds, : No Renal angle tenderness; EXTREMITIES: Bipedal edema with venous stasis MUSCULOSKELETAL: no muscle wasting NEURO: no lateralizing signs. SKIN: As described above PSYCH; Flat affect Assessment & Plan Assessment/Plan (1) Acute encephalopathy: PLAN: Plan Patient is an 82-year-old gentleman admitted with acute encephalopathy 1. Acute toxic encephalopathy ? Secondary to patient impaired kidney function, suspected superimposed pneumonia on a recent COVID infection. Admitted to monitored bed for further management ? 05/24/2023 do suspect patient psychotropic medication as well as narcotic was contributing to his encephalopathy given his impaired kidney function ? 05/25/2023; patient level of sensorium improving 2. Pneumonia Diagnosed suspected multidrug-resistant organism given patient recent hospitalization as well as his recent COVID infection. Patient admitted to a monitored bed started on broad-spectrum antibiotic therapy cultures blood and sputum signs please on supplemental oxygen as needed titrated to keep saturation greater than 90 ? 05/24/2023 not requiring any oxygen at this point 3. Acute on chronic congestive heart failure with reduced ejection fraction ? Patient has known EF of 20% with severe global LV systolic dysfunction. Patient started on Lasix consult placed to nephrology for dialysis to help manage patient fluid status ? 05/24/2023; patient is in negative fluid balance of 1.7 L since admission. 4. End-stage renal disease ? Patient is on dialysis on Wednesdays and Fridays consult placed to Dr. Mullins for dialysis 5. Elevated troponin ? Secondary to myocardial injury from his congestive heart failure, pneumonia and CHF will monitor on continuous telemetry 6. Dyslipidemia -Patient is on statin therapy, continued at home dose 7. BPH with lower urinary obstructive symptoms - Patient treated with tamsulosin as well as finasteride 8. Hypothyroidism - Patient is on levothyroxine home dose continued 9. Coronary artery disease ? With previous PCI with YESENIA to mid RCA lesion. Patient is on guideline directed medical therapy 10. Hypertension - Blood pressure controlled, home medications continued with dose adjustment as needed 11. Peripheral arterial disease ? Patient is on antiplatelet therapy as well as statin therapy 12. Anemia - Secondary to chronic disorder monitoring H&H and transfuse if patient becomes symptomatic or hemoglobin falls below 7 13. GERD ? On PPI 14. Class II obesity with BMI of 36 ? Complicating care 15. Anxiety disorder ? Patient is on BuSpar which is currently being held given his encephalopathy. 16. DVT prophylaxis ? SC heparin 17. Physical deconditioning - Requested for PT OT eval and social worker health services to assist with discharge planning Time spent in the patient's overall evaluation,decision-making process, review of diagnostic data, adjustment of management, discussion with other providers, nursing nursing and ancillary staff involved in patient's care documentation, 35 Minutes Charges/Coding Visit Charges Inpatient E&M: 54707 Subs Hosp L2
--- NOTE | 2023-05-25 09:31 | CASEMGMT ---
Social Work: A list of 15 providers including quality and resource use data and consistent with patient's preferred geographic region, medical needs, and insurance network were provided from the [facility] Guide. TRINI Guy
--- NOTE | 2023-05-25 09:38 | CASEMGMT ---
TANO spoke with patient's son Alok per his request. Alok feels patient needs to go to a skilled nursing instead of back to [facility]. 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 Patient has been to [facility] and Alok took patient out of there as it was terrible. Patient tried an AL in [place], but was kicked out there for being inappropriate with females. Patient has done okay at [facility], but Alok thinks patient needs more help and supervision. TANO provided Alok with a SNF list. Aolk asked if TANO could check with [facility] as his brother and another family member are there currently. Alok said he will look over this list, but he will be out of town this weekend, but can be reached by phone. Plan: d/c to SNF pending accepting facility and insurance approval. Anita Brito MSW SURAJ
--- NOTE | 2023-05-25 11:31 | CASEMGMT ---
Social Work: Referral sent via [facility] to [facility]. TRINI Guy
[2023-05-25] MEDS: 0.9% Saline Lock 10 ML Syringe IV (12:00)
[2023-05-25] MEDS: Multivitamin (Healthy Eyes) Capsule 1 CAP PO ×2 (12:00→17:25)
[2023-05-25] MEDS: guaiFENesin 600 MG Tablet PO ×2 (12:01→21:05)
[2023-05-25] MEDS: amLODIPine 5 MG Tablet PO (12:01)
[2023-05-25] MEDS: Finasteride 5 MG Tablet PO (12:02)
[2023-05-25] MEDS: Clopidogrel Bisulfate 75 MG Tablet PO (12:02)
[2023-05-25] MEDS: Aspirin E.C. 81 MG Tablet PO (12:02)
[2023-05-25] MEDS: Pantoprazole Sodium 40 MG Tablet PO (12:02)
[2023-05-25] MEDS: CARBOXYMETHYLCELLULOSE SODIUM 1 DRP DROPS OPHTHALMIC ×2 (12:05→21:06)
[2023-05-25] MEDS: Fluticasone 0.05% 1 SPRAY NASAL.SRY NASAL (12:06)
[2023-05-25] MEDS: Heparin Injection (Vial) 5,000 UNIT/ML VIAL 5000 UNIT SC ×2 (12:06→21:04)
[2023-05-25] MEDS: Ceftriaxone 2 GM in 0.9% Normal Saline (50mL MB+) 50 ML IV (12:14)
--- NOTE | 2023-05-25 12:52 | CASEMGMT ---
[facility] is unable to take patient as they have no empty beds and likely won't until maybe the end of next week. TANO called patient's son Alok and let him know that information. Alok said he will review the list. nAita Brito NATURAL GAS FIELD PROCESSING SUPERVISOREladio RUELAS
--- NOTE | 2023-05-25 13:08 | PCM.PN.REN ---
Subjective Subjective Underwent hemodialysis today. Sitting in chair. No complaints. No overnight events. Objective Data Objective Data Vital Signs: Vital Signs Temp Pulse Resp BP Pulse Ox O2 Del Method O2 Flow Rate 97.9 F 94 16 140/80 H 97 Room Air 2 05/25/23 11:59 05/25/23 11:59 05/25/23 11:59 05/25/23 11:59 05/25/23 11:59 05/25/23 11:59 05/24/23 19:21 Oxygen Flow Rate (L/min) 2 Oxygen Delivery Method Room Air Weight: 104.5 kg Body Mass Index (BMI) 35.0 Intake & Output: Intake and Output for Last 24 Hours 05/23/23 05/24/23 05/25/23 23:59 23:59 23:59 Intake Total 705 / 705 905 / 905 Output Total 2470 / 2470 0 / 0 1600 / 1600 Balance -1765 / -1765 905 / 905 -1600 / -1600 Lab / Micro Data 05/25/23 04:50 05/25/23 04:50 Labs: Laboratory Results - last 24 hr 05/25/23 04:50: WBC 7.4, RBC 2.97 L, Hgb 8.6 L, Hct 27.8 L, MCV 93.6, MCH 29.0, MCHC 30.9 L, RDW Std Deviation 51.3 H, RDW Coeff of Colleen 14.9 H, Plt Count 208, MPV 10.4, Immature Gran % (Auto) 0.300, Neut % (Auto) 68.3, Lymph % (Auto) 17.4 L, [place] % (Auto) 8.9, Eos % (Auto) 4.6, Baso % (Auto) 0.5, Absolute Neuts (auto) 5.1, Absolute Lymphs (auto) 1.29, Nucleated RBC % 0, Sodium 138, Potassium 3.6, Chloride 103, Carbon Dioxide 29.0, Anion Gap 6, BUN 47 H, Creatinine 6.72 H, Estim Creat Clear Calc 9.67, Est GFR (MDRD) Af Amer 10 L, Est GFR (MDRD) Non-Af 8 L, BUN/Creatinine Ratio 7.0 L, Glucose 157 H, Calcium 9.2 Micro: Microbiology 05/23/23 11:36 Sputum, Expectorated/Coughed Gram Stain - Final 05/23/23 11:36 Sputum, Expectorated/Coughed Respiratory Culture - Preliminary Staphylococcus aureus Beta streptococcus 05/23/23 07:56 Urine Catheter - Catheter Urine Culture - Preliminary GPC Poss Enterococcus sp 05/23/23 14:48 Mucosa - Nasopharyngeal Respiratory Panel (PCR) - Final 05/23/23 07:56 Urine, Clean Catch Legionella Antigen - Final 05/23/23 07:56 Urine, Clean Catch Streptococcus pneumoniae Antigen (M - Final 05/23/23 06:00 Mucosa - Nose SARS-CoV-2, Influenza & RSV (PCR) - Final Physical Exam Narrative Alert awake oriented no obvious distress s1s2 no murmurs lungs clear abdomen soft Trace lower extremity edema AV fistula left forearm positive thrill and bruit Assessment & Plan Assessment/Plan (1) ESRD on hemodialysis: PLAN: On hemodialysis Sunday, Sunday, Sunday. Underwent dialysis today and tolerated ~1.5L UF. Likely next dialysis will be on Sunday. On antibiotics for pneumonia. received epogen with HD today. Continue to monitor hgb trends. bps acceptable on amlodipine
[2023-05-25] MEDS: Azithromycin 500 MG in Dextrose 5%-Water (250mL Bag) 250 ML 250 MG IV (13:42)
[2023-05-25] MEDS: Pravastatin 20 MG Tablet PO (17:25)
[2023-05-25] MEDS: Tamsulosin HCl 0.4 MG Capsule 0.400000000000000022 MG PO (17:25)
[2023-05-25] MEDS: Montelukast 10 MG Tablet PO (21:07)
[2023-05-26 03:25] VITALS: BP 131/64; PULSE 89; RESP 18; TEMP 36.9; O2SAT 94
[2023-05-26] MEDS: Levothyroxine 50 MCG Tablet PO (05:24)
[2023-05-26] MEDS: Furosemide 100 MG/10 ML Vial 60 MG IV (05:24)
--- NOTE | 2023-05-26 08:54 | PN.HOSP_ITS ---
Reason for Visit Reason for Visit: Diagnoses Encephalopathy, unspecified (05/23/23) End stage renal disease (05/23/23) Dependence on renal dialysis (05/23/23) Subjective Subjective Patient seen had a relatively uneventful night. Transferred to a halfway facility pending Objective Data Objective Data Vital Signs: Vital Signs Temp Pulse Resp BP Pulse Ox O2 Del Method O2 Flow Rate 98.4 F 89 18 131/64 H 94 Room Air 2 05/26/23 03:25 05/26/23 03:25 05/26/23 03:25 05/26/23 03:25 05/26/23 03:25 05/26/23 03:25 05/24/23 19:21 Oxygen Flow Rate (L/min) 2 Oxygen Delivery Method Room Air Weight: 104.5 kg Body Mass Index (BMI) 35.0 Intake & Output: Intake and Output for Last 24 Hours 05/24/23 05/25/23 05/26/23 23:59 23:59 23:59 Intake Total 905 / 905 1025 / 1025 Output Total 0 / 0 1600 / 1600 Balance 905 / 905 -575 / -575 Lab / Micro Data 05/25/23 04:50 05/25/23 04:50 Micro: Microbiology 05/23/23 11:36 Sputum, Expectorated/Coughed Gram Stain - Final 05/23/23 11:36 Sputum, Expectorated/Coughed Respiratory Culture - Final Staphylococcus aureus Streptococcus agalactiae (B) 05/23/23 07:56 Urine Catheter - Catheter Urine Culture - Final Enterococcus faecalis 05/23/23 14:48 Mucosa - Nasopharyngeal Respiratory Panel (PCR) - Final 05/23/23 07:56 Urine, Clean Catch Legionella Antigen - Final 05/23/23 07:56 Urine, Clean Catch Streptococcus pneumoniae Antigen (M - Final 05/23/23 06:00 Mucosa - Nose SARS-CoV-2, Influenza & RSV (PCR) - Final Physical Exam Narrative GENERAL: Resting comfortably HEENT: Atraumatic; normocephalic EYES; Anicteric, Normal Conjunctiva NECK; supple, normal thyroid, RESPIRATORY: Diminished to auscultation CARDIOVASCULAR: Regular S1 S2, GI: soft, normoactive bowel sounds, : No Renal angle tenderness; EXTREMITIES: Bipedal edema with venous stasis MUSCULOSKELETAL: no muscle wasting NEURO: no lateralizing signs. SKIN: As described above PSYCH; Flat affect Assessment & Plan Assessment/Plan (1) Acute encephalopathy: PLAN: Plan Patient is an 82-year-old gentleman admitted with acute encephalopathy 1. Acute toxic encephalopathy ? Secondary to patient impaired kidney function, suspected superimposed pneu monia on a recent COVID infection. Admitted to monitored bed for further management ? 05/24/2023 do suspect patient psychotropic medication as well as narcotic was contributing to his encephalopathy given his impaired kidney function ? 05/25/2023; patient level of sensorium improving ? 05/26/2023; patient back to baseline 2. Pneumonia Secondary to strep agalactiae as well as MSSA pneumonia. Patient admitted to a monitored bed started on broad-spectrum antibiotic therapy cultures blood and sputum signs please on supplemental oxygen as needed titrated to keep saturation greater than 90 ? 05/24/2023 not requiring any oxygen at this point ? 05/26/2023; patient sputum cultures positive for methicillin sensitive Staph aureus as well as Streptococcus atelectatic 3. Acute on chronic congestive heart failure with reduced ejection fraction ? Patient has known EF of 20% with severe global LV systolic dysfunction. Patient started on Lasix consult placed to nephrology for dialysis to help manag e patient fluid status ? 05/24/2023; patient is in negative fluid balance of 1.7 L since admission. 4. End-stage renal disease ? Patient is on dialysis on Wednesdays and Fridays consult placed to Dr. Mullins for dialysis 5. Elevated troponin ? Secondary to myocardial injury from his congestive heart failure, pneumonia and CHF will monitor on continuous telemetry 6. Dyslipidemia -Patient is on statin therapy, continued at home dose 7. BPH with lower urinary obstructive symptoms - Patient treated with tamsulosin as well as finasteride 8. Hypothyroidism - Patient is on levothyroxine home dose continued 9. Coronary artery disease ? With previous PCI with YESENIA to mid RCA lesion. Patient is on guideline directed medical therapy 10. Hypertension - Blood pressure controlled, home medications continued with dose adjustment as needed 11. Peripheral arterial disease ? Patient is on antiplatelet therapy as well as statin therapy 12. Anemia - Secondary to chronic disorder monitoring H&H and transfuse if patient becomes symptomatic or hemoglobin falls below 7 13. GERD ? On PPI 14. Class II obesity with BMI of 36 ? Complicating care 15. Anxiety disorder ? Patient is on BuSpar which is currently being held given his encephalopathy. 16. DVT prophylaxis ? SC heparin 17. Physical deconditioning - Requested for PT OT eval and sr. social media & mobile manager to assist with discharge planning Time spent in the patient's overall evaluation,decision-making process, review of diagnostic data, adjustment of management, discussion with other providers, nursing nursing and ancillary staff involved in patient's care documentation, 35 Minutes Charges/Coding Visit Charges Inpatient E&M: 70691 Subs Hosp L2
[2023-05-26 09:13] LABS: Absolute Lymphocyte Count 1.53 X10^3/uL (0.83-4.51); Absolute Neutrophil Count 4.7 X10^3/uL (2.0-7.7); Basophil# 0.06 X10^3/uL; Basophil% 0.8 % (0-1); Eosinophil# 0.34 X10^3/uL; Eosinophils% 4.6 % (0-5); Hematocrit 28.7 % (40-54); Hemoglobin 8.8 g/dL (13.0-16.5); Lymphocyte # 1.53 X10^3/ul (0.83-4.51); Lymphocyte % 20.6 % (19-41); Mean Corp Hgb Conc 30.7 g/dL (32-36); Mean Corpuscular Hgb 28.2 pg (27.0-32.0); Mean Platelet Vol. 10.8 fl (6.2-12.0); Monocyte# 0.75 X10^3/uL; Monocyte% 10.1 % (0-10); NRBC Flagged by Analyzer 0 % (0-5); Neutrophil # 4.74 X10^3/uL (2.7-7.7); Neutrophil % 63.6 % (47-70); Platelet Count 202 K/mm3 (150-450); RBC Distribution Width CV 14.7 % (11.6-14.6); RBC Distribution Width SD 49.1 fl (35.1-43.9); Red Blood Count 3.12 M/mm3 (4.6-6.2); White Blood Count 7.4 K/mm3 (4.4-11.0)
[2023-05-26 09:26] VITALS: BP 100/83; PULSE 92; RESP 16; TEMP 36.7; O2SAT 97
[2023-05-26] MEDS: Heparin Injection (Vial) 5,000 UNIT/ML VIAL 5000 UNIT SC ×2 (09:28→20:46)
[2023-05-26] MEDS: CARBOXYMETHYLCELLULOSE SODIUM 1 DRP DROPS OPHTHALMIC ×2 (09:29→20:48)
[2023-05-26] MEDS: Multivitamin (Healthy Eyes) Capsule 1 CAP PO ×2 (09:29→16:13)
[2023-05-26 09:31] LABS: Anion Gap 5 (5-15); BUN 39 mg/dL (7-18); BUN/Creat Ratio 6.8 RATIO (10-20); Calcium,Total 9.3 mg/dL (8.5-10.1); Chloride 103 mmol/L (98-107); Creatinine, Serum 5.73 mg/dL (0.70-1.30); EST Glomerular Filtration Rate 10 mL/min (>60); Est Glom Filt Rate - Afr Amer 12 mL/min (>60); Estimated Creatinine Clearance 11.24 ml/min; Glucose 150 mg/dL (74-106); Potassium 3.5 mmol/L (3.5-5.1); Sodium Level 136 mmol/L (136-145)
[2023-05-26] MEDS: guaiFENesin 600 MG Tablet PO ×2 (09:31→20:48)
[2023-05-26] MEDS: Loratadine 10 MG Tablet PO (09:31)
[2023-05-26] MEDS: Azithromycin 500 MG in Dextrose 5%-Water (250mL Bag) 250 ML 250 MG IV (09:32)
[2023-05-26] MEDS: 0.9% Saline Lock 10 ML Syringe IV ×2 (09:33→10:44)
[2023-05-26] MEDS: Pantoprazole Sodium 40 MG Tablet PO (13:23)
[2023-05-26] MEDS: Fluticasone 0.05% 1 SPRAY NASAL.SRY NASAL (13:23)
[2023-05-26] MEDS: amLODIPine 5 MG Tablet PO (13:23)
[2023-05-26] MEDS: Clopidogrel Bisulfate 75 MG Tablet PO (13:24)
[2023-05-26] MEDS: Aspirin E.C. 81 MG Tablet PO (13:24)
[2023-05-26] MEDS: Finasteride 5 MG Tablet PO (13:25)
[2023-05-26 15:10] VITALS: BP 134/74; PULSE 91; RESP 17; TEMP 36.6; O2SAT 97
[2023-05-26] MEDS: Cefdinir 300 MG Capsule PO (16:12)
[2023-05-26] MEDS: Furosemide 20 MG Tablet 60 MG PO (16:12)
[2023-05-26] MEDS: Pravastatin 20 MG Tablet PO (16:13)
[2023-05-26] MEDS: Tamsulosin HCl 0.4 MG Capsule 0.400000000000000022 MG PO (16:13)
[2023-05-26] MEDS: Nepro with Carbsteady 237 ML Liquid 120 ML PO (16:16)
[2023-05-26] MEDS: NYSTATIN 500,000 UNIT/5 ML UDC 500000 UNIT PO ×2 (16:49→20:48)
[2023-05-26] MEDS: Montelukast 10 MG Tablet PO (20:46)
[2023-05-26 21:00] VITALS: BP 148/97; PULSE 92; RESP 18; TEMP 36.6; O2SAT 96
[2023-05-27] MEDS: Levothyroxine 50 MCG Tablet PO (03:11)
[2023-05-27 03:30] VITALS: BP 151/73; PULSE 97; RESP 18; TEMP 36.2; O2SAT 97
--- NOTE | 2023-05-27 07:17 | PCM.PN.HOSP ---
Reason for Visit Reason for Visit: Diagnoses Encephalopathy, unspecified (05/23/23) End stage renal disease (05/23/23) Dependence on renal dialysis (05/23/23) Subjective Subjective Patient seen had a relatively uneventful night. Awaiting placement in a care home facility Objective Data Objective Data Vital Signs: Vital Signs Temp Pulse Resp BP Pulse Ox O2 Del Method O2 Flow Rate 97.1 F L 97 18 151/73 H 97 Room Air 2 05/27/23 03:30 05/27/23 03:30 05/27/23 03:30 05/27/23 03:30 05/27/23 03:30 05/27/23 03:30 05/24/23 19:21 Oxygen Flow Rate (L/min) 2 Oxygen Delivery Method Room Air Weight: 104.5 kg Body Mass Index (BMI) 35.0 Intake & Output: Intake and Output for Last 24 Hours 05/25/23 05/26/23 05/27/23 23:59 23:59 23:59 Intake Total 1025 / 1025 1355 / 1455 100 / 100 Output Total 1600 / 1600 Balance -575 / -575 1355 / 1455 100 / 100 Lab / Micro Data 05/26/23 08:15 05/26/23 08:15 Labs: Laboratory Results - last 24 hr 05/26/23 08:15: WBC 7.4, RBC 3.12 L, Hgb 8.8 L, Hct 28.7 L, MCV 92.0, MCH 28.2, MCHC 30.7 L, RDW Std Deviation 49.1 H, RDW Coeff of Colelen 14.7 H, Plt Count 202, MPV 10.8, Immature Gran % (Auto) 0.300, Neut % (Auto) 63.6, Lymph % (Auto) 20.6, [place] % (Auto) 10.1 H, Eos % (Auto) 4.6, Baso % (Auto) 0.8, Absolute Neuts (auto) 4.7, Absolute Lymphs (auto) 1.53, Nucleated RBC % 0, Sodium 136, Potassium 3.5, Chloride 103, Carbon Dioxide 28.0, Anion Gap 5, BUN 39 H, Creatinine 5.73 H, Estim Creat Clear Calc 11.24, Est GFR (MDRD) Af Amer 12 L, Est GFR (MDRD) Non-Af 10 L, BUN/Creatinine Ratio 6.8 L, Glucose 150 H, Calcium 9.3 Micro: Microbiology 05/23/23 11:36 Sputum, Expectorated/Coughed Gram Stain - Final 05/23/23 11:36 Sputum, Expectorated/Coughed Respiratory Culture - Final Staphylococcus aureus Streptococcus agalactiae (B) 05/23/23 07:56 Urine Catheter - Catheter Urine Culture - Final Enterococcus faecalis 05/23/23 14:48 Mucosa - Nasopharyngeal Respiratory Panel (PCR) - Final 05/23/23 07:56 Urine, Clean Catch Legionella Antigen - Final 05/23/23 07:56 Urine, Clean Catch Streptococcus pneumoniae Antigen (M - Final 05/23/23 06:00 Mucosa - Nose SARS-CoV-2, Influenza & RSV (PCR) - Final Physical Exam Narrative GENERAL: Resting comfortably HEENT: Atraumatic; normocephalic EYES; Anicteric, Normal Conjunctiva NECK; supple, normal thyroid, RESPIRATORY: Diminished to auscultation CARDIOVASCULAR: Regular S1 S2, GI: soft, normoactive bowel sounds, : No Renal angle tenderness; EXTREMITIES: Bipedal edema with venous stasis MUSCULOSKELETAL: no muscle wasting NEURO: no lateralizing signs. SKIN: As described above PSYCH; Flat affect Assessment & Plan Assessment/Plan (1) Acute encephalopathy: PLAN: Plan Patient is an 82-year-old gentleman admitted with acute encephalopathy 1. Acute toxic encephalopathy ? Secondary to patient impaired kidney function, suspected superimposed pneumonia on a recent COVID infection. Admitted to monitored bed for further management ? 05/24/2023 do suspect patient psychotropic medication as well as narcotic was contributing to his encephalopathy given his impaired kidney function ? 05/25/2023; patient level of sensorium improving ? 05/26/2023; patient back to baseline 2. Pneumonia Secondary to strep agalactiae as well as MSSA pneumonia. Patient admitted to a monitored bed started on broad-spectrum antibiotic therapy cultures blood and sputum signs please on supplemental oxygen as needed titrated to keep saturation greater than 90 ? 05/24/2023 not requiring any oxygen at this point ? 05/26/2023; patient sputum cultures positive for methicillin sensitive Staph aureus as well as Streptococcus atelectatic 3. Acute on chronic congestive heart failure with reduced ejection fraction ? Patient has known EF of 20% with severe global LV systolic dysfunction. Patient started on Lasix consult placed to nephrology for dialysis to help manage patient fluid status ? 05/24/2023; patient is in negative fluid balance of 1.7 L since admission. 4. End-stage renal disease ? Patient is on dialysis on Wednesdays and Fridays consult placed to Dr. Mullins for dialysis 5. Elevated troponin ? Secondary to myocardial injury from his congestive heart failure, pneumonia and CHF will monitor on continuous telemetry 6. Dyslipidemia -Patient is on statin therapy, continued at home dose 7. BPH with lower urinary obstructive symptoms - Patient treated with tamsulosin as well as finasteride 8. Hypothyroidism - Patient is on levothyroxine home dose continued 9. Coronary artery disease ? With previous PCI with YESENIA to mid RCA lesion. Patient is on guideline directed medical therapy 10. Hypertension - Blood pressure controlled, home medications continued with dose adjustment as needed 11. Peripheral arterial disease ? Patient is on antiplatelet therapy as well as statin therapy 12. Anemia - Secondary to chronic disorder monitoring H&H and transfuse if patient becomes symptomatic or hemoglobin falls below 7 13. GERD ? On PPI 14. Class II obesity with BMI of 36 ? Complicating care 15. Anxiety disorder ? Patient is on BuSpar which is currently being held given his encephalopathy. 16. DVT prophylaxis ? SC heparin 17. Physical deconditioning - Requested for PT OT eval and social media content manager to assist with discharge planning ? 05/27/2023 transfer to care home facility pending Time spent in the patient's overall evaluation,decision-making process, review of diagnostic data, adjustment of management, discussion with other providers, nursing nursing and ancillary staff involved in patient's care documentation, 35 Minutes Charges/Coding Visit Charges Inpatient E&M: 04035 Subs Hosp L2
--- NOTE | 2023-05-27 09:52 | PCM.PN.REN ---
Subjective Subjective No new complaints Objective Data Objective Data Vital Signs: Vital Signs Temp Pulse Resp BP Pulse Ox O2 Del Method O2 Flow Rate 97.1 F L 97 18 151/73 H 97 Room Air 2 05/27/23 03:30 05/27/23 03:30 05/27/23 03:30 05/27/23 03:30 05/27/23 03:30 05/27/23 03:30 05/24/23 19:21 Oxygen Flow Rate (L/min) 2 Oxygen Delivery Method Room Air Weight: 104.5 kg Body Mass Index (BMI) 35.0 Intake & Output: Intake and Output for Last 24 Hours 05/25/23 05/26/23 05/27/23 23:59 23:59 23:59 Intake Total 1025 / 1025 1355 / 1455 100 / 100 Output Total 1600 / 1600 Balance -575 / -575 1355 / 1455 100 / 100 Lab / Micro Data 05/26/23 08:15 05/26/23 08:15 Micro: Microbiology 05/23/23 11:36 Sputum, Expectorated/Coughed Gram Stain - Final 05/23/23 11:36 Sputum, Expectorated/Coughed Respiratory Culture - Final Staphylococcus aureus Streptococcus agalactiae (B) 05/23/23 07:56 Urine Catheter - Catheter Urine Culture - Final Enterococcus faecalis 05/23/23 14:48 Mucosa - Nasopharyngeal Respiratory Panel (PCR) - Final 05/23/23 07:56 Urine, Clean Catch Legionella Antigen - Final 05/23/23 07:56 Urine, Clean Catch Streptococcus pneumoniae Antigen (M - Final 05/23/23 06:00 Mucosa - Nose SARS-CoV-2, Influenza & RSV (PCR) - Final Physical Exam Narrative Alert awake oriented no obvious distress s1s2 no murmurs lungs clear abdomen soft Trace lower extremity edema AV fistula left forearm positive thrill and bruit Assessment & Plan Assessment/Plan (1) ESRD on hemodialysis: PLAN: On hemodialysis Sunday, Sunday, Sunday. On antibiotics for pneumonia. received epogen with HD today. bps acceptable
[2023-05-27 09:58] VITALS: BP 124/68; PULSE 92; RESP 15; TEMP 36.8; O2SAT 98
[2023-05-27] MEDS: guaiFENesin 600 MG Tablet PO ×2 (10:04→20:46)
[2023-05-27] MEDS: Pantoprazole Sodium 40 MG Tablet PO (10:05)
[2023-05-27] MEDS: Multivitamin (Healthy Eyes) Capsule 1 CAP PO ×2 (10:05→17:29)
[2023-05-27] MEDS: amLODIPine 5 MG Tablet PO (10:06)
[2023-05-27] MEDS: Clopidogrel Bisulfate 75 MG Tablet PO (10:06)
[2023-05-27] MEDS: Furosemide 20 MG Tablet 60 MG PO ×2 (10:07→17:29)
[2023-05-27] MEDS: Cefdinir 300 MG Capsule PO (10:07)
[2023-05-27] MEDS: Heparin Injection (Vial) 5,000 UNIT/ML VIAL 5000 UNIT SC ×2 (10:08→20:46)
[2023-05-27] MEDS: NYSTATIN 500,000 UNIT/5 ML UDC 500000 UNIT PO ×4 (10:08→20:46)
[2023-05-27] MEDS: CARBOXYMETHYLCELLULOSE SODIUM 1 DRP DROPS OPHTHALMIC (10:09)
[2023-05-27] MEDS: Fluticasone 0.05% 1 SPRAY NASAL.SRY NASAL (10:10)
[2023-05-27] MEDS: Nepro with Carbsteady 237 ML Liquid 120 ML PO ×3 (10:14→17:29)
[2023-05-27] MEDS: Finasteride 5 MG Tablet PO (11:31)
[2023-05-27] MEDS: Aspirin E.C. 81 MG Tablet PO (11:31)
[2023-05-27 17:24] VITALS: BP 147/81; PULSE 91; RESP 14; TEMP 36.6; O2SAT 99
[2023-05-27] MEDS: Tamsulosin HCl 0.4 MG Capsule 0.400000000000000022 MG PO (17:28)
[2023-05-27] MEDS: Pravastatin 20 MG Tablet PO (17:28)
[2023-05-27] MEDS: Montelukast 10 MG Tablet PO (20:46)
[2023-05-27 21:20] VITALS: BP 148/75; PULSE 90; RESP 18; TEMP 36.1; O2SAT 97
[2023-05-27] MEDS: MELATONIN 3 MG TABLET PO (23:57)
[2023-05-27] MEDS: Acetaminophen 325 MG Tablet 650 MG PO (23:59)
[2023-05-28] VITALS (12 sets, daily range): BP systolic 120–244; BP diastolic 66–116; PULSE 74–89; RESP 14–18; TEMP 36.2–36.7; O2SAT 94–100; BMI 35.0
[2023-05-28] MEDS: Levothyroxine 50 MCG Tablet PO (03:50)
[2023-05-28] MEDS: 0.9% Normal Saline 1,000 ML IV.SOLN. 1000 ML OPERA.SITE (07:59)
[2023-05-28] MEDS: PureFlow B 3K Dialysis Soln 1 BAG 6 BAG PF (07:59)
[2023-05-28] MEDS: Epoetin Alfa epbx 10,000 UNITS/ML 10000 UNIT IV (09:46)
[2023-05-28] MEDS: Acetaminophen 325 MG Tablet 650 MG PO (10:37)
--- NOTE | 2023-05-28 10:48 | CASEMGMT ---
TANO called patient's son Alok. TANO asked Alok if he has decided on any nursing homes. Alok said he was wondering if patient is able to go back to [facility]. TANO let Alok know that TANO can send updates to [facility] and see what they say. TANO will let him know. TANO asked Stephanie d/c planning feeder to please send updates to [facility]. Anita RUELAS
--- NOTE | 2023-05-28 10:49 | CASEMGMT ---
Discharge Planning Call placed to [facility] to follow up on updates sent last week. Fax was not received by them so original clinicals and updates were faxed again. Stephanie Solo, Discharge Planning Asst.
[2023-05-28] MEDS: Furosemide 20 MG Tablet 60 MG PO ×2 (11:00→18:34)
[2023-05-28] MEDS: Aspirin E.C. 81 MG Tablet PO (11:00)
[2023-05-28] MEDS: Pantoprazole Sodium 40 MG Tablet PO (11:00)
[2023-05-28] MEDS: Loratadine 10 MG Tablet PO (11:00)
[2023-05-28] MEDS: NYSTATIN 500,000 UNIT/5 ML UDC 500000 UNIT PO ×4 (11:01→20:48)
[2023-05-28] MEDS: amLODIPine 5 MG Tablet PO (11:01)
[2023-05-28] MEDS: Clopidogrel Bisulfate 75 MG Tablet PO (11:01)
[2023-05-28] MEDS: Cefdinir 300 MG Capsule PO (11:01)
[2023-05-28] MEDS: guaiFENesin 600 MG Tablet PO ×2 (11:02→20:47)
--- NOTE | 2023-05-28 11:06 | CASEMGMT ---
TANO received a call from Sadaf a nurse with [facility]. TANO went over therapy notes with Sadaf and said patient sounds fine to return. TANO asked about patient's mental state normally. TANO explained patient is alert and oriented X 1-2. Sadaf still said it is okay for patient to return. TANO will call patient's son Alok and let him know this information. Anita Brito MSW SURAJ
--- NOTE | 2023-05-28 11:19 | PCM.PN.REN ---
Subjective Subjective Seen at end of dialysis today. No overnight events. Objective Data Objective Data Vital Signs: Vital Signs Temp Pulse Resp BP Pulse Ox O2 Del Method O2 Flow Rate 97.6 F L 82 18 149/116 H 95 Room Air 2 05/28/23 09:50 05/28/23 10:30 05/28/23 10:30 05/28/23 10:30 05/28/23 10:30 05/28/23 10:30 05/24/23 19:21 Oxygen Flow Rate (L/min) 2 Oxygen Delivery Method Room Air Weight: 104.5 kg Body Mass Index (BMI) 35.0 Intake & Output: Intake and Output for Last 24 Hours 05/26/23 05/27/23 05/28/23 23:59 23:59 23:59 Intake Total 1355 / 1455 1195 / 1195 Balance 1355 / 1455 1195 / 1195 Lab / Micro Data 05/26/23 08:15 05/26/23 08:15 Micro: Microbiology 05/23/23 09:08 Blood Culture (Wb) - Anticubital Right Blood Culture - Final No growth in 5 days. 05/23/23 06:30 Blood Culture (Wb) - Right Hand Blood Culture - Final No growth in 5 days. 05/23/23 11:36 Sputum, Expectorated/Coughed Gram Stain - Final 05/23/23 11:36 Sputum, Expectorated/Coughed Respiratory Culture - Final Staphylococcus aureus Streptococcus agalactiae (B) 05/23/23 07:56 Urine Catheter - Catheter Urine Culture - Final Enterococcus faecalis 05/23/23 14:48 Mucosa - Nasopharyngeal Respiratory Panel (PCR) - Final 05/23/23 07:56 Urine, Clean Catch Legionella Antigen - Final 05/23/23 07:56 Urine, Clean Catch Streptococcus pneumoniae Antigen (M - Final 05/23/23 06:00 Mucosa - Nose SARS-CoV-2, Influenza & RSV (PCR) - Final Physical Exam Narrative Alert awake oriented no obvious distress s1s2 no murmurs lungs clear abdomen soft +edema b/l lower legs AV fistula left forearm positive thrill and bruit Assessment & Plan Assessment/Plan (1) ESRD on hemodialysis: PLAN: On hemodialysis Sunday, Sunday, Sunday. Patient underwent hemodialysis today and tolerated around 2.2 L fluid removal. Likely next dialysis will be Wednesday. On antibiotics for pneumonia. bps acceptable Discharge planning in progress, possible discharge today.
[2023-05-28] MEDS: Heparin Injection (Vial) 5,000 UNIT/ML VIAL 5000 UNIT SC ×2 (11:40→20:47)
--- NOTE | 2023-05-28 12:27 | CASEMGMT ---
Patient's son Alok came to [facility]. SW let Alok know that patient is okay to return to [facility]. Alok said he would prefer if SW set up transport, but he could possibly transport patient tomorrow after work. Plan: d/c back to [facility] HARLEY RUELAS
--- NOTE | 2023-05-28 15:59 | PN.HOSP_ITS ---
Subjective Subjective Doing well, no issues overnight. Currently receiving dialysis on evaluation Objective Data Objective Data Vital Signs: Vital Signs Temp Pulse Resp BP Pulse Ox O2 Del Method O2 Flow Rate 97.6 F L 82 16 120/67 96 Room Air 2 05/28/23 09:50 05/28/23 11:00 05/28/23 11:00 05/28/23 11:00 05/28/23 11:00 05/28/23 11:00 05/24/23 19:21 Oxygen Flow Rate (L/min) 2 Oxygen Delivery Method Room Air Weight: 230 lb 6.129 oz Body Mass Index (BMI) 35.0 Intake & Output: Intake and Output for Last 24 Hours 05/27/23 05/28/23 05/29/23 03:59 03:59 03:59 Intake Total 1455 / 1455 1095 / 1095 120 / 120 Output Total 2170 / 2170 Balance 1455 / 1455 1095 / 1095 -2050 / -2050 Lab / Micro Data 05/26/23 08:15 05/26/23 08:15 Micro: Microbiology 05/23/23 09:08 Blood Culture (Wb) - Anticubital Right Blood Culture - Final No growth in 5 days. 05/23/23 06:30 Blood Culture (Wb) - Right Hand Blood Culture - Final No growth in 5 days. 05/23/23 11:36 Sputum, Expectorated/Coughed Gram Stain - Final 05/23/23 11:36 Sputum, Expectorated/Coughed Respiratory Culture - Final Staphylococcus aureus Streptococcus agalactiae (B) 05/23/23 07:56 Urine Catheter - Catheter Urine Culture - Final Enterococcus faecalis 05/23/23 14:48 Mucosa - Nasopharyngeal Respiratory Panel (PCR) - Final 05/23/23 07:56 Urine, Clean Catch Legionella Antigen - Final 05/23/23 07:56 Urine, Clean Catch Streptococcus pneumoniae Antigen (M - Final 05/23/23 06:00 Mucosa - Nose SARS-CoV-2, Influenza & RSV (PCR) - Final Physical Exam Narrative General: Alert, Oriented x3, Cooperative, No apparent distress HEENT: Atraumatic, PERRLA, EOMI, Normocephalic Oral: Moist Mucosa Neck: Supple, No JVD Lungs: Diminished, Normal air movement, No rhonchi, No wheeze, No rales Cardiovascular: Regular rate, Regular Rhythm, Normal S1, Normal S2, No murmurs Abdomen: Soft, Non Tender, Non-Distended, No Hepato-splenomegaly Extremities: No edema, Capillary Refill Less than 3 Seconds Skin: No rashes, No breakdown Musculoskeletal: No Tenderness to Palpation of Joints or Extremities Neurological: Cranial nerves II-XII grossly intact, Motor Exam 5/5 strength throughout, Sensory exam intact to light touch and pain Psych/Mental Status: Flat Assessment & Plan Assessment/Plan (1) Acute encephalopathy: PLAN: Plan 1. Acute toxic encephalopathy ? Secondary to patient impaired kidney function, suspected superimposed pneumonia on a recent COVID infection. Admitted to monitored bed for further management ? 05/24/2023 do suspect patient psychotropic medication as well as narcotic was contributing to his encephalopathy given his impaired kidney function ? 05/25/2023; patient level of sensorium improving ? 05/26/2023; patient back to baseline 05/28/2023: Resolved 2. Pneumonia Secondary to strep agalactiae as well as MSSA pneumonia. Patient admitted to a monitored bed started on broad-spectrum antibiotic therapy cultures blood and sputum signs please on supplemental oxygen as needed titrated to keep saturation greater than 90 ? 05/24/2023 not requiring any oxygen at this point ? 05/26/2023; patient sputum cultures positive for methicillin sensitive Staph aureus as well as Streptococcus atelectatic 3. Acute on chronic congestive heart failure with reduced ejection fraction ? Patient has known EF of 20% with severe global LV systolic dysfunction. Patient started on Lasix consult placed to nephrology for dialysis to help man age patient fluid status ? 05/24/2023; patient is in negative fluid balance of 1.7 L since admission. 4. End-stage renal disease ? Patient is on dialysis on Wednesdays and Fridays consult placed to Dr. Mullins for dialysis 5. Elevated troponin ? Secondary to myocardial injury from his congestive heart failure, pneumonia and CHF will monitor on continuous telemetry 6. Dyslipidemia -Patient is on statin therapy, continued at home dose 7. BPH with lower urinary obstructive symptoms - Patient treated with tamsulosin as well as finasteride 8. Hypothyroidism - Patient is on levothyroxine home dose continued 9. Coronary artery disease ? With previous PCI with YESENIA to mid RCA lesion. Patient is on guideline directed medical therapy 10. Hypertension - Blood pressure controlled, home medications continued with dose adjustment as needed 11. Peripheral arterial disease ? Patient is on antiplatelet therapy as well as statin therapy 12. Anemia - Secondary to chronic disorder monitoring H&H and transfuse if patient becomes symptomatic or hemoglobin falls below 7 13. GERD ? On PPI 14. Class II obesity with BMI of 36 ? Complicating care 15. Anxiety disorder ? Patient is on BuSpar which is currently being held given his encephalopathy. DVT: Heparin Charges/Coding Visit Charges Inpatient E&M: 18616 Subs Hosp L2
[2023-05-28] MEDS: Nepro with Carbsteady 237 ML Liquid 120 ML PO (17:25)
[2023-05-28] MEDS: Pravastatin 20 MG Tablet PO (17:25)
[2023-05-28] MEDS: Tamsulosin HCl 0.4 MG Capsule 0.400000000000000022 MG PO (17:25)
[2023-05-28] MEDS: Multivitamin (Healthy Eyes) Capsule 1 CAP PO (17:25)
[2023-05-28] MEDS: CARBOXYMETHYLCELLULOSE SODIUM 1 DRP DROPS OPHTHALMIC (20:47)
[2023-05-28] MEDS: Montelukast 10 MG Tablet PO (20:47)
[2023-05-29] MEDS: MELATONIN 3 MG TABLET PO (00:12)
[2023-05-29 04:48] VITALS: BP 135/67; PULSE 70; RESP 14; TEMP 36.6; O2SAT 98
[2023-05-29] MEDS: Levothyroxine 50 MCG Tablet PO (06:50)
[2023-05-29 07:37] VITALS: BP 147/77; PULSE 87; RESP 16; TEMP 36.3; O2SAT 99
[2023-05-29 08:44] LABS: Absolute Lymphocyte Count 1.39 X10^3/uL (0.83-4.51); Absolute Neutrophil Count 5.6 X10^3/uL (2.0-7.7); Basophil# 0.05 X10^3/uL; Basophil% 0.6 % (0-1); Eosinophil# 0.35 X10^3/uL; Eosinophils% 4.3 % (0-5); Hematocrit 30.6 % (40-54); Hemoglobin 9.5 g/dL (13.0-16.5); Lymphocyte # 1.39 X10^3/ul (0.83-4.51); Lymphocyte % 17.3 % (19-41); Mean Corpuscular Hgb 29.1 pg (27.0-32.0); Mean Corpuscular Volume 93.9 fL (80-94); Mean Platelet Vol. 10.3 fl (6.2-12.0); Monocyte# 0.64 X10^3/uL; NRBC Flagged by Analyzer 0 % (0-5); Neutrophil # 5.59 X10^3/uL (2.7-7.7); Neutrophil % 69.4 % (47-70); Platelet Count 250 K/mm3 (150-450); RBC Distribution Width CV 14.9 % (11.6-14.6); RBC Distribution Width SD 50.9 fl (35.1-43.9); Red Blood Count 3.26 M/mm3 (4.6-6.2); White Blood Count 8.1 K/mm3 (4.4-11.0)
[2023-05-29 09:15] LABS: Anion Gap 6 (5-15); BUN 46 mg/dL (7-18); BUN/Creat Ratio 7.5 RATIO (10-20); Chloride 101 mmol/L (98-107); Creatinine, Serum 6.14 mg/dL (0.70-1.30); EST Glomerular Filtration Rate 9 mL/min (>60); Est Glom Filt Rate - Afr Amer 11 mL/min (>60); Estimated Creatinine Clearance 10.49 ml/min; Glucose 167 mg/dL (74-106); Potassium 4.4 mmol/L (3.5-5.1); Sodium Level 134 mmol/L (136-145)
[2023-05-29] MEDS: Multivitamin (Healthy Eyes) Capsule 1 CAP PO (09:42)
[2023-05-29] MEDS: Furosemide 20 MG Tablet 60 MG PO (09:42)
[2023-05-29] MEDS: Heparin Injection (Vial) 5,000 UNIT/ML VIAL 5000 UNIT SC (09:42)
[2023-05-29] MEDS: amLODIPine 5 MG Tablet PO (09:43)
[2023-05-29] MEDS: Cefdinir 300 MG Capsule PO (09:43)
[2023-05-29] MEDS: Aspirin E.C. 81 MG Tablet PO (09:43)
[2023-05-29] MEDS: NYSTATIN 500,000 UNIT/5 ML UDC 500000 UNIT PO (09:43)
[2023-05-29] MEDS: guaiFENesin 600 MG Tablet PO (09:43)
[2023-05-29] MEDS: Fluticasone 0.05% 1 SPRAY NASAL.SRY NASAL (09:43)
[2023-05-29] MEDS: CARBOXYMETHYLCELLULOSE SODIUM 1 DRP DROPS OPHTHALMIC (09:43)
[2023-05-29] MEDS: Finasteride 5 MG Tablet PO (09:44)
[2023-05-29] MEDS: Clopidogrel Bisulfate 75 MG Tablet PO (09:44)
[2023-05-29] MEDS: Pantoprazole Sodium 40 MG Tablet PO (09:44)
--- NOTE | 2023-05-29 10:20 | PCM.PN.REN ---
Documented by User: ANDI Martell 05/29/23 10:34 Subjective Subjective Sitting in chair. No overnight events. Denies any complaints this morning. Objective Data Objective Data Vital Signs: Vital Signs Temp Pulse Resp BP Pulse Ox O2 Del Method O2 Flow Rate 97.4 F L 87 16 147/77 H 99 Room Air 2 05/29/23 07:37 05/29/23 07:37 05/29/23 07:37 05/29/23 07:37 05/29/23 07:37 05/29/23 07:37 05/24/23 19:21 Oxygen Flow Rate (L/min) 2 Oxygen Delivery Method Room Air Weight: 104.5 kg Body Mass Index (BMI) 35.0 Intake & Output: Intake and Output for Last 24 Hours 05/27/23 05/28/23 05/29/23 23:59 23:59 23:59 Intake Total 1195 / 1195 240 / 240 150 / 150 Output Total 2170 / 2170 Balance 1195 / 1195 -1930 / -1930 150 / 150 Lab / Micro Data 05/29/23 08:22 05/29/23 08:22 Labs: Laboratory Results - last 24 hr 05/29/23 08:22: WBC 8.1, RBC 3.26 L, Hgb 9.5 L, Hct 30.6 L, MCV 93.9, MCH 29.1, MCHC 31.0 L, RDW Std Deviation 50.9 H, RDW Coeff of Colleen 14.9 H, Plt Count 250, MPV 10.3, Immature Gran % (Auto) 0.400, Neut % (Auto) 69.4, Lymph % (Auto) 17.3 L, [place] % (Auto) 8.0, Eos % (Auto) 4.3, Baso % (Auto) 0.6, Absolute Neuts (auto) 5.6, Absolute Lymphs (auto) 1.39, Nucleated RBC % 0, Sodium 134 L, Potassium 4.4, Chloride 101, Carbon Dioxide 27.0, Anion Gap 6, BUN 46 H, Creatinine 6.14 H, Estim Creat Clear Calc 10.49, Est GFR (MDRD) Af Amer 11 L, Est GFR (MDRD) Non-Af 9 L, BUN/Creatinine Ratio 7.5 L, Glucose 167 H, Calcium 10.0 Micro: Microbiology 05/23/23 09:08 Blood Culture (Wb) - Anticubital Right Blood Culture - Final No growth in 5 days. 05/23/23 06:30 Blood Culture (Wb) - Right Hand Blood Culture - Final No growth in 5 days. 05/23/23 11:36 Sputum, Expectorated/Coughed Gram Stain - Final 05/23/23 11:36 Sputum, Expectorated/Coughed Respiratory Culture - Final Staphylococcus aureus Streptococcus agalactiae (B) 05/23/23 07:56 Urine Catheter - Catheter Urine Culture - Final Enterococcus faecalis 05/23/23 14:48 Mucosa - Nasopharyngeal Respiratory Panel (PCR) - Final 05/23/23 07:56 Urine, Clean Catch Legionella Antigen - Final 05/23/23 07:56 Urine, Clean Catch Streptococcus pneumoniae Antigen (M - Final 05/23/23 06:00 Mucosa - Nose SARS-CoV-2, Influenza & RSV (PCR) - Final Physical Exam Narrative Alert, awake, oriented no obvious distress s1s2 no murmurs lungs clear abdomen soft +edema b/l lower legs AV fistula left forearm positive thrill and bruit Assessment & Plan Assessment/Plan (1) ESRD on hemodialysis: PLAN: On hemodialysis Sunday, Sunday, Sunday. Patient underwent hemodialysis yesterday and tolerated around 2.2 L fluid removal. No acute indication for dialysis today, next dialysis will be tomorrow with fluid removal. hgb 9.5. will monitor hgb trends. On antibiotics for pneumonia. bps acceptable Discharge planning in progress, possible discharge today. Documented by User: Dr. Kirstin Mullins MD 05/29/23 13:10 Objective Data Lab / Micro Data 05/29/23 08:22 05/29/23 08:22 Assessment & Plan Assessment/Plan (1) ESRD on hemodialysis: PLAN: On hemodialysis Sunday, Sunday, Sunday. Patient underwent hemodialysis yesterday and tolerated around 2.2 L fluid removal. No acute indication for dialysis today, next dialysis will be tomorrow with fluid removal. hgb 9.5. will monitor hgb trends. On antibiotics for pneumonia. bps acceptable Discharge planning in progress, possible discharge today. Addendum agree with above
--- NOTE | 2023-05-29 12:48 | CASEMGMT ---
TANO spoke with patient's son Alok and he said he can transport patient back to [facility]. Alok said he could be at [facility] a little after 2p which is when he can leave work. TANO notified RN and Stephanie d/chica financial planning advisor to notify [facility]. Anita Brito MSW SURAJ
--- NOTE | 2023-05-29 13:11 | NURSING ---
report called to rodriguez. had to leave voicemail
--- NOTE | 2023-05-29 13:20 | PCM.DC ---
Discharge Instructions Diet Discharge Diet: Low fat / Low cholesterol Activity Discharge Activity: Return to Normal Activity Dressing / Incision Call your doctor if you observe: Fever of 101 or Higher, Shortness of breath, Dizziness, Fainting spells, Swelling in the ankles, Chest pain and Increased palpitations (irregular heartbeat) Follow Up Care Test Results: Test results from this visit will be discussed in further detail at your follow-up appointment, if applicable. Discharge Plan Admission Admit Date/Time: 05/23/23 10:17 Attending Provider: Bucky Mahan Primary Care Provider: Germania Penn SOFT WORK WRAPPER LAYER AND EXAMINER Consulting Providers: Kirstin Mullins; Willie Vasquez Discharge Orders/Prescriptions Prescriptions: New cefdinir 300 mg Capsule 300 mg PO DAILY 2 Days Qty: 2 0RF Continued acetaminophen 325 mg capsule 650 mg PO TID loratadine 10 mg tablet 10 mg PO DAILY levothyroxine 50 mcg tablet 50 mcg PO 1200 tamsulosin [Flomax] 0.4 mg capsule 0.4 mg PO 1700 buspirone 5 mg tablet 5 mg PO BID Rx Instructions: TAKE 1 TABLET BY MOUTH TWICE DAILY AT 5AM AND AT BEDTIME omega [id number]-gjb-vny-fish oil [Fish Oil] 60-90-500 mg capsule 1 cap PO BID pantoprazole 40 mg tablet,delayed release (DR/EC) 40 mg PO 1200 guaifenesin [Mucinex] 600 mg tablet extended release 12hr 600 mg PO BID Patient Comments: [place] [facility] [employer] fluticasone propionate [Allergy Relief (fluticasone)] 50 mcg/actuation spray,suspension 1 spray intranasal 1200 Rx Instructions: administer into each nostril montelukast 10 mg tablet 10 mg PO QHS finasteride 5 MG tablet 5 mg PO 1200 nitroglycerin 0.4 MG tablet 0.4 mg SUBLINGUAL Q5M PRN (Reason: Chest Pain) amlodipine 5 mg tablet 5 mg PO DAILY aspirin 81 mg tablet,delayed release (DR/EC) 81 mg PO 1200 hydromorphone 4 mg tablet 4 mg PO Q4H PRN (Reason: PAIN ) torsemide 20 mg tablet 20 mg PO DAILY PreserVision AREDS-2 250-90-40-1 mg capsule 1 tab PO BID Thera-M 9 mg iron-400 mcg tablet 1 tab PO 1200 clopidogrel 75 MG tablet 75 mg PO 1200 pravastatin 20 mg tablet 20 mg PO 1700 Referrals / Follow Up: Germania Penn SOFT WORK WRAPPER [employer]ER AND EXAMINER, SOFT WORK WRAPPER LAYER AND EXAMINER-C [Primary Care Provider] - 06/07/23 1:00 pm (Germania Penn N.P. will be at [facility] on Jun.07. Time to be determined.) Disposition Disposition (needs filled in before D/C Order can be placed): Assisted Living
--- NOTE | 2023-05-29 13:37 | CASEMGMT ---
Discharge Planning Discharge instructions and transport time faxed to [facility]. Patients son will scrap picker at approx 2p. Stephanie Solo, Discharge Planning Asst.
[2023-05-29 13:40] VITALS: BP 154/93; PULSE 88; RESP 16; TEMP 36.8; O2SAT 97
--- NOTE | 2023-05-29 14:06 | PHA.DC.MC.R ---
Pharmacy [facility] has performed discharge medication reconciliation and counseling for this patient. The patient's discharge medication list was reviewed for discrepancies and discrepancies were resolved. The patient was counseled on the following discharge medications and changes in medications for homegoing were reviewed. The Reason for Use, instructions for use, and potential side effects were reviewed for all new medications. The patient's questions regarding all of their medications were answered. 1. Cefdinir 300 mg capsule daily x 2 days The patient was able to verbally demonstrate an understanding of their discharge medications. Medications at Discharge Home Medications finasteride 5 mg tablet 5 mg PO 1200 PROSTATE 04/01/14 nitroglycerin 0.4 mg sublingual tablet 0.4 mg sublingual Q5M PRN Chest Pain 02/01/15 acetaminophen 325 mg capsule 650 mg PO TID pain/fever 02/20/18 levothyroxine 50 mcg tablet 50 mcg PO 1200 THYROID 05/02/18 loratadine 10 mg tablet 10 mg PO DAILY ALLERGIES 10/03/18 tamsulosin 0.4 mg capsule (Flomax) 0.4 mg PO 1700 PROSTATE 04/02/19 buspirone 5 mg tablet 5 mg PO BID ANXIETY 12/25/19 fluticasone propionate 50 mcg/actuation nasal spray,suspension (Allergy Relief (fluticasone)) 1 spray intranasal 1200 NASAL CONGESTION 05/05/22 guaifenesin 600 mg tablet, extended release 12 hr (Mucinex) 600 mg PO BID MUCUS RELIEF 05/05/22 montelukast 10 mg tablet 10 mg PO QHS ALLERGIES 05/05/22 omega 0-irs-yvv-fish oil 60 mg-90 mg-500 mg capsule (Fish Oil) 1 cap PO BID SUPPLEMENT 05/05/22 pantoprazole 40 mg tablet,delayed release 40 mg PO 1200 ACID REFLUX 05/05/22 amlodipine 5 mg tablet 5 mg PO DAILY BLOOD PRESSURE 05/07/23 aspirin 81 mg tablet,delayed release 81 mg PO 1200 HEART HEALTH 05/07/23 clopidogrel 75 mg tablet 75 mg PO 1200 BLOOD THINNER 05/07/23 hydromorphone 4 mg tablet 4 mg PO Q4H PRN PAIN 05/07/23 multivitamin-iron 9 mg-folic acid 400 mcg-calcium and minerals tablet (Thera-M) 1 tab PO 1200 SUPPLEMENT 05/07/23 pravastatin 20 mg tablet 20 mg PO 1700 CHOLESTEROL 05/07/23 torsemide 20 mg tablet 20 mg PO DAILY EDEMA 05/07/23 vit C 250 mg-vit E 90 mg-zinc 40 mg-copper 1 is-uixdqm-dwxdmv capsule (PreserVision AREDS-2) 1 tab PO BID SUPPLEMENT 05/07/23 cefdinir 300 mg capsule 300 mg PO DAILY 2 days #2 caps 05/29/23
--- NOTE | 2023-05-29 14:21 | PCM.DC.SUM ---
Providers Date of Admission: 05/23/23 Primary Care Physician: ANDI Box Consultations 05/23/23 11:09 Consult: Nephrology Routine Consulting Provider: Kirstin Mullins Reason for Consult: ESRD EMERGENT Consult: No MD Notified: Yes Date Notified: 05/23/23 Time Notified: 10:56 Method of Notification: Text Reason For Visit: ACUTE ENCEPHALOPATHY Diagnosis Discharge Diagnosis (1) ESRD on hemodialysis: Status: Acute Code(s): N18.6 - End stage renal disease; Z99.2 - Dependence on renal dialysis Medications at Discharge Home Medications finasteride 5 mg tablet 5 mg PO 1200 PROSTATE 04/01/14 nitroglycerin 0.4 mg sublingual tablet 0.4 mg sublingual Q5M PRN Chest Pain 02/01/15 acetaminophen 325 mg capsule 650 mg PO TID pain/fever 02/20/18 levothyroxine 50 mcg tablet 50 mcg PO 1200 THYROID 05/02/18 loratadine 10 mg tablet 10 mg PO DAILY ALLERGIES 10/03/18 tamsulosin 0.4 mg capsule (Flomax) 0.4 mg PO 1700 PROSTATE 04/02/19 buspirone 5 mg tablet 5 mg PO BID ANXIETY 12/25/19 fluticasone propionate 50 mcg/actuation nasal spray,suspension (Allergy Relief (fluticasone)) 1 spray intranasal 1200 NASAL CONGESTION 05/05/22 guaifenesin 600 mg tablet, extended release 12 hr (Mucinex) 600 mg PO BID MUCUS RELIEF 05/05/22 montelukast 10 mg tablet 10 mg PO QHS ALLERGIES 05/05/22 omega 0-lxl-ukr-fish oil 60 mg-90 mg-500 mg capsule (Fish Oil) 1 cap PO BID SUPPLEMENT 05/05/22 pantoprazole 40 mg tablet,delayed release 40 mg PO 1200 ACID REFLUX 05/05/22 amlodipine 5 mg tablet 5 mg PO DAILY BLOOD PRESSURE 05/07/23 aspirin 81 mg tablet,delayed release 81 mg PO 1200 HEART HEALTH 05/07/23 clopidogrel 75 mg tablet 75 mg PO 1200 BLOOD THINNER 05/07/23 hydromorphone 4 mg tablet 4 mg PO Q4H PRN PAIN 05/07/23 multivitamin-iron 9 mg-folic acid 400 mcg-calcium and minerals tablet (Thera-M) 1 tab PO 1200 SUPPLEMENT 01/08/24 pravastatin 20 mg tablet 20 mg PO 1700 CHOLESTEROL 05/07/23 torsemide 20 mg tablet 20 mg PO DAILY EDEMA 05/07/23 vit C 250 mg-vit E 90 mg-zinc 40 mg-copper 1 gb-catnry-ryeijw capsule (PreserVision AREDS-2) 1 tab PO BID SUPPLEMENT 05/07/23 cefdinir 300 mg capsule 300 mg PO DAILY 2 days #2 caps 05/29/23 Hospital Course Operations None Procedures None Summary of Care Provided Minutes Spent on Discharge: 32 Hospital Course: Per HPI: ARIANNA GUILLERMO, is a 82 M who presents with altered mental status. 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 Patient could not provide any reliable history given his encephalopathy. Patient was however reported to be confused assisted living facility moving from room to room. Was brought to the emergency department. Workup in the ED did show some leukocytosis. Checks x-ray did show bibasilar opacities questionable for pneumonia versus fluid. Given patient significantly low EF and assessment of acute on chronic congestive heart failure made admitted to a monitored bed for further management Hospital course: 1. Acute toxic versus metabolic encephalopathy secondary to medication use in the setting of end-stage renal disease versus MSSA and strep agalactiae pneumonia?82-year-old male presented to the hospital with altered mental status, he does take multiple medications that could lead to a toxic encephalopathy in the setting of his renal failure however he was also found to have bibasilar opacities consistent with infiltration and sputum culture demonstrated MSSA as well as strep agalactiae. He was placed on renally adjusted antibiotics which he will complete in 2 more days after discharge. He is feeling much better today and I discussed with him the possibility of discharge back to his assisted living and he expressed understanding of the risk benefits of going back home. He would like to go today and he was able to complete dialysis yesterday without any significant issues so plan for discharge back to assisted living today. 2. Acute on chronic systolic CHF/HTN/HLD/CAD status post stent?he does have an ejection fraction of 20% with severe global LV dysfunction. He does take torsemide at home and this was increased to Lasix 60 mg twice daily however he was able to get fluid taken off with dialysis and so I elected to on discharge send him back on his torsemide 20 mg p.o. daily which can then be increased to twice daily if necessary. 3. End-stage renal disease, BPH, peripheral artery disease, anemia of chronic disease, GERD, anxiety, hypothyroidism, depression are all chronic medical conditions which complicate his care. His home medications were continued where appropriate Physical Exam Narrative General: Alert, Oriented x3, Cooperative, No apparent distress HEENT: Atraumatic, PERRLA, EOMI, Normocephalic Oral: Moist Mucosa Neck: Supple, No JVD Lungs: Diminished, Normal air movement, No rhonchi, No wheeze, No rales Cardiovascular: Regular rate, Regular Rhythm, Normal S1, Normal S2, No murmurs Abdomen: Soft, Non Tender, Non-Distended, No Hepato-splenomegaly Extremities: No edema, Capillary Refill Less than 3 Seconds Skin: No rashes, No breakdown Musculoskeletal: No Tenderness to Palpation of Joints or Extremities Neurological: No focal neurological deficit, Motor Exam 5/5 strength throughout, Sensory exam intact to light touch and pain Psych/Mental Status: Normal affect Weight / BMI Weight Weight: 230 lb 6.129 oz Body Mass Index (BMI) 35.0 ABG / Lab / Microbiology Data 05/29/23 08:22 05/29/23 08:22 Laboratory: Laboratory Results - last 24 hr 05/29/23 08:22: WBC 8.1, RBC 3.26 L, Hgb 9.5 L, Hct 30.6 L, MCV 93.9, MCH 29.1, MCHC 31.0 L, RDW Std Deviation 50.9 H, RDW Coeff of Colleen 14.9 H, Plt Count 250, MPV 10.3, Immature Gran % (Auto) 0.400, Neut % (Auto) 69.4, Lymph % (Auto) 17.3 L, Hendry % (Auto) 8.0, Eos % (Auto) 4.3, Baso % (Auto) 0.6, Absolute Neuts (auto) 5.6, Absolute Lymphs (auto) 1.39, Nucleated RBC % 0, Sodium 134 L, Potassium 4.4, Chloride 101, Carbon Dioxide 27.0, Anion Gap 6, BUN 46 H, Creatinine 6.14 H, Estim Creat Clear Calc 10.49, Est GFR (MDRD) Af Amer 11 L, Est GFR (MDRD) Non-Af 9 L, BUN/Creatinine Ratio 7.5 L, Glucose 167 H, Calcium 10.0 Microbiology: Microbiology 05/23/23 09:08 Blood Culture (Wb) - Anticubital Right Blood Culture - Final No growth in 5 days. 05/23/23 06:30 Blood Culture (Wb) - Right Hand Blood Culture - Final No growth in 5 days. 05/23/23 11:36 Sputum, Expectorated/Coughed Gram Stain - Final 05/23/23 11:36 Sputum, Expectorated/Coughed Respiratory Culture - Final Staphylococcus aureus Streptococcus agalactiae (B) 05/23/23 07:56 Urine Catheter - Catheter Urine Culture - Final Enterococcus faecalis 05/23/23 14:48 Mucosa - Nasopharyngeal Respiratory Panel (PCR) - Final 05/23/23 07:56 Urine, Clean Catch Legionella Antigen - Final 05/23/23 07:56 Urine, Clean Catch Streptococcus pneumoniae Antigen (M - Final 05/23/23 06:00 Mucosa - Nose SARS-CoV-2, Influenza & RSV (PCR) - Final D/C Instructions Discharge Diet: Low fat / Low cholesterol Call your doctor if you observe: Fever of 101 or Higher, Shortness of breath, Dizziness, Fainting spells, Swelling in the ankles, Chest pain and Increased palpitations (irregular heartbeat) Meaningful Use Info Meaningful Use Diagnoses (Choose all that apply): None applicable Discharge Plan Admission Admit Date/Time: 05/23/23 10:17 Attending Provider: Bucky Mahan Primary Care Provider: Germania Penn DIRECTOR OF FOOD AND NUTRITION SERVICES Consulting Providers: Kirstin Mullins; Willie Vasquez Discharge Orders/Prescriptions Prescriptions: New cefdinir 300 mg Capsule 300 mg PO DAILY 2 Days Qty: 2 0RF Continued acetaminophen 325 mg capsule 650 mg PO TID loratadine 10 mg tablet 10 mg PO DAILY levothyroxine 50 mcg tablet 50 mcg PO 1200 tamsulosin [Flomax] 0.4 mg capsule 0.4 mg PO 1700 buspirone 5 mg tablet 5 mg PO BID Rx Instructions: TAKE 1 TABLET BY MOUTH TWICE DAILY AT 5AM AND AT BEDTIME omega 3-ixr-whk-fish oil [Fish Oil] 60-90-500 mg capsule 1 cap PO BID pantoprazole 40 mg tablet,delayed release (DR/EC) 40 mg PO 1200 guaifenesin [Mucinex] 600 mg tablet extended release 12hr 600 mg PO BID Patient Comments: [place] [facility] fluticasone propionate [Allergy Relief (fluticasone)] 50 mcg/actuation spray,suspension 1 spray intranasal 1200 Rx Instructions: administer into each nostril montelukast 10 mg tablet 10 mg PO QHS finasteride 5 MG tablet 5 mg PO 1200 nitroglycerin 0.4 MG tablet 0.4 mg SUBLINGUAL Q5M PRN (Reason: Chest Pain) amlodipine 5 mg tablet 5 mg PO DAILY aspirin 81 mg tablet,delayed release (DR/EC) 81 mg PO 1200 hydromorphone 4 mg tablet 4 mg PO Q4H PRN (Reason: PAIN ) torsemide 20 mg tablet 20 mg PO DAILY PreserVision AREDS-2 250-90-40-1 mg capsule 1 tab PO BID Thera-M 9 mg iron-400 mcg tablet 1 tab PO 1200 clopidogrel 75 MG tablet 75 mg PO 1200 pravastatin 20 mg tablet 20 mg PO 1700 Referrals / Follow Up: Germania Penn DIRECTOR OF FOOD AND NUTRITION SERVICES, DIRECTOR OF FOOD AND NUTRITION SERVICES-[facility] [Primary Care Provider] - 06/07/23 1:00 pm (Germania Penn N.P. will be at [facility] on Jun.07. Time to be determined.) Disposition Disposition (needs filled in before D/C Order can be placed): Assisted Living Charges/Coding Visit Charges Inpatient E&M: 71324 Disch Hosp >30min
== END 2023-05-29 14:23 | disposition home or self-care (01) | DRG 177 ==
LOC: ED 07:24 → PCU 10:44
PROVIDERS: Admitting Provider Internal Medicine; Emergency Provider Emergency Medicine; PCP Nurse Practitioner Adult Health; Visit Provider Family Medicine
DX: J15.211 Pneumonia due to Methicillin susceptible Staphylococcus aureus (principal); N18.6 End stage renal disease; I50.23 Acute on chronic systolic (congestive) heart failure; G92.8 Other toxic encephalopathy; N13.8 Other obstructive and reflux uropathy; I5A Non-ischemic myocardial injury (non-traumatic); I13.2 Hypertensive heart and chronic kidney disease with heart failure and with stage 5 chronic kidney disease, or end stage renal disease; Z16.24 Resistance to multiple antibiotics; D63.1 Anemia in chronic kidney disease; I73.9 Peripheral vascular disease, unspecified; J15.4 Pneumonia due to other streptococci; Z99.2 Dependence on renal dialysis; E03.9 Hypothyroidism, unspecified; I25.10 Atherosclerotic heart disease of native coronary artery without angina pectoris; E78.5 Hyperlipidemia, unspecified; K21.9 Gastro-esophageal reflux disease without esophagitis; F41.9 Anxiety disorder, unspecified; E66.9 Obesity, unspecified; Z87.891 Personal history of nicotine dependence; R41.0 Disorientation, unspecified; Z79.82 Long term (current) use of aspirin; Z79.02 Long term (current) use of antithrombotics/antiplatelets; Z66 Do not resuscitate; N40.1 Benign prostatic hyperplasia with lower urinary tract symptoms; Z68.36 Body mass index [BMI] 36.0-36.9, adult
CPT/HCPCS: 36415; 70450; 71046; 80048; 80053; 81001; 82140; 83605; 83735; 83880; 84484; 85025; 85610; 85730; 87040; 87070; 87077; 87086; 87088; 87186; 87205; 87449; 87631; 87633; 90937; 92526; 92610; 93005; 97110; 97162; 97166; 97530; 97535; 97802; 99285; J7030; A4216; G0257; J1940; Q5106

== ENCOUNTER 2023-06-22 07:51 | Inpatient (IN) | payer MEDICARE, BC, MEDICAID, SELFPAY ==
[2023-06-22] VITALS (15 sets, daily range): BP systolic 133–262; BP diastolic 50–96; PULSE 87–95; RESP 16–26; TEMP 36.1–36.8; O2SAT 88–97; BMI 38.0; BMI 37.9; BMI 36.9
--- NOTE | 2023-06-22 08:14 | EKG12_ITS ---
Test Reason : JW Blood Pressure : / mmHG Vent. Rate : 095 BPM Atrial Rate : 095 BPM P-R Int : 212 ms QRS Dur : 120 ms QT Int : 400 ms P-R-T Axes : 014 -16 149 degrees QTc Int : 502 ms Sinus rhythm with 1st degree A-V block with occasional Premature ventricular complexes and Premature atrial complexes Left ventricular hypertrophy with QRS widening and repolarization abnormality ( [place] product ) Abnormal ECG Confirmed by CARLITOS HOWE, AYAZ ([id number]), marketing editor AMENA OLIVER ([id number]) on 06/25/2023 9:35:23 AM Referred By: Confirmed By:AYAZ URBINA MD
--- NOTE | 2023-06-22 08:16 | ED.VIS.DYS ---
HPI History of Present Illness Chief Complaint: Shortness of Breath Informant: patient Onset/Context/Timing Onset: Weeks and Month(s) Context: gradual Timing: Continuous Current Severity: Mild Maximum Severity: Mild Worsened by: Nothing Relieved by: Nothing Associated Symptoms Negative for cough Chest Pain: Positive for None Narrative Narrative: 82-year-old male history of end-stage renal disease dialysis. He was at dialysis today only had a half an hour run and was sent to the emergency department. Has a known history of CAD, CHF, anemia and hypertension. Was admitted to the hospital about a month ago for pneumonia. Patient states he had a sore throat for about 4 weeks. He has been short of breath the same amount of time. Denies nausea, vomiting or diarrhea. Denies fever. Denies any significant cough. No history of DVT or PE. He has chronic leg swelling is no worse. He had a full dialysis run on Sunday. PE Risk Factors: Positive for Recent travel; Negative for Cancer, OCP + Smoking + > 35, Prior DVT or PE, Recent immobilization or Recent surgery Prior similar symptoms: Yes Recent Illness/Hospitalization: [facility] Medical History Abnormal electrocardiogram Abnormal nuclear stress test Acute renal insufficiency Anemia of chronic illness Angina pectoris Arthritis Atherosclerosis of [place] coronary artery of [place] heart without angina pectoris Benign essential hypertension Benign prostatic hypertrophy without lower urinary tract symptoms BMI 40.0-44.9, adult Breast mass, left Chest pain Chest pain on exertion Chronic anemia Chronic kidney disease Chronic renal failure, stage 3 (moderate) Coronary artery disease Diastolic heart failure End stage renal disease ESRD on hemodialysis Essential hypertension Fatigue Gastroesophageal reflux disease History of heart failure Hyperlipidemia Hypertension Hypokalemia Long-term use of high-risk medication Melanotic stools Normochromic normocytic anemia ALY (obstructive sleep apnea) Pulmonary hypertension Shortness of breath Sinus bradycardia Skin lesion Home Medications finasteride 5 mg tablet 5 mg PO 1200 PROSTATE 04/01/14 [History Last Taken 05/06/23] nitroglycerin 0.4 mg sublingual tablet 0.4 mg sublingual Q5M PRN Chest Pain 02/01/15 [History Last Taken 02/27/15] acetaminophen 325 mg capsule 650 mg PO TID pain/fever 02/20/18 [History Last Taken 05/07/23] levothyroxine 50 mcg tablet 50 mcg PO 1200 THYROID 05/02/18 [History Last Taken 05/04/23] loratadine 10 mg tablet 10 mg PO DAILY ALLERGIES 10/03/18 [History Last Taken 05/06/23] tamsulosin 0.4 mg capsule (Flomax) 0.4 mg PO 1700 PROSTATE 04/02/19 [History Last Taken 05/06/23] buspirone 5 mg tablet 5 mg PO BID ANXIETY 12/25/19 [History Last Taken 05/07/23] fluticasone propionate 50 mcg/actuation nasal spray,suspension (Allergy Relief (fluticasone)) 1 spray intranasal 1200 NASAL CONGESTION 05/05/22 [History Last Taken 05/04/23] guaifenesin 600 mg tablet, extended release 12 hr (Mucinex) 600 mg PO BID MUCUS RELIEF 05/05/22 [History Last Taken Unknown] montelukast 10 mg tablet 10 mg PO QHS ALLERGIES 05/05/22 [History Last Taken 05/06/23] omega 9-xvi-lyh-fish oil 60 mg-90 mg-500 mg capsule (Fish Oil) 1 cap PO BID SUPPLEMENT 05/05/22 [History Last Taken 05/07/23] pantoprazole 40 mg tablet,delayed release 40 mg PO 1200 ACID REFLUX 05/05/22 [History Last Taken 05/04/23] amlodipine 5 mg tablet 5 mg PO DAILY BLOOD PRESSURE 05/07/23 [History Last Taken 05/04/23] aspirin 81 mg tablet,delayed release 81 mg PO 1200 HEART HEALTH 05/07/23 [History Last Taken 05/04/23] clopidogrel 75 mg tablet 75 mg PO 1200 BLOOD THINNER 05/07/23 [History Last Taken 05/06/23] hydromorphone 4 mg tablet 4 mg PO Q4H PRN PAIN 05/07/23 [History Last Taken 05/07/23] multivitamin-iron 9 mg-folic acid 400 mcg-calcium and minerals tablet (Thera-M) 1 tab PO 1200 SUPPLEMENT 05/07/23 [History Last Taken 05/05/23] pravastatin 20 mg tablet 20 mg PO 1700 CHOLESTEROL 05/07/23 [History Last Taken 05/06/23] torsemide 20 mg tablet 20 mg PO DAILY EDEMA 05/07/23 [History Last Taken 05/06/23] vit C 250 mg-vit E 90 mg-zinc 40 mg-copper 1 gn-[id number]-rprvbk capsule (PreserVision AREDS-2) 1 tab PO BID SUPPLEMENT 05/07/23 [History Last Taken 05/06/23] cefdinir 300 mg capsule 300 mg PO DAILY 2 days #2 caps 05/29/23 [Rx Last Taken Unknown] Allergy/AdvReac Type Severity Reaction Status Date / Time doxazosin mesylate Allergy Hives Verified 06/22/23 07:59 [From Cardura] fosinopril sodium Allergy Hives Verified 06/22/23 07:59 [From Monopril] lisinopril Allergy Hives Verified 06/22/23 07:59 morphine Allergy Other Verified 06/22/23 07:59 Family History Father Hypertension Cancer Brother CAD (coronary artery disease) Mother Hypertension Sister Hypertension Son Atrial fibrillation Surgical History history fistulogram (~07/27/17) History of angioplasty History of bilateral hip arthroplasty History of left breast biopsy (~06/2018) 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 S/P peripheral artery angioplasty (~03/2022) Status post right partial knee replacement Social History household members: none housing: halfway Smoking Status: Former smoker Tobacco: How many years used: 20 second hand exposure: No alcohol intake: never substance use type: does not use caffeine: No what type of physical activity do you participate in: none ROS ROS ED ROS Narrative Shortness of breath. Sore throat. Review of Systems ROS Unobtainable: Denies due to encephalopathy Constitutional Constitutional ED: Denies chills or fever(s) Eyes Eyes: Denies blurry vision ENT ENT ED: Denies ear pain Cardiovascular Cardiovascular: Denies chest pain Respiratory/Chest Respiratory/Chest: Reports dyspnea; Denies cough Gastrointestinal Gastrointestinal: Denies abdominal pain, diarrhea, nausea or vomiting Genitourinary Genitourinary ED: Denies dysuria or hematuria Musculoskeletal Musculoskeletal: Denies arthralgias Integumentary Denies abscess Neurologic Neurologic: Denies headache(s) Psychiatric Psychiatric: Denies anxiety Endocrine Endocrinology: Denies cold intolerance Hematologic/Lymphatic Hematologic/Lymphatic: Denies easy bleeding, easy bruising or lymphadenopathy Allergic/Immunologic Allergic/Immunologic ED: Denies mouth swelling, tongue swelling or urticaria EXAM Physical Exam Narrative Exam Narrative: Well-appearing 82-year-old male. Vital signs are stable except on room air his pulse ox 80%. He typically is on room air and is not on home oxygen. He does not look septic or toxic. He is in no distress. On oxygen 2 L is 96%. H EENT exam unremarkable. Posterior pharynx unremarkable. No erythema or exudate. No trouble swallowing or breathing. No stridor or drooling. Neck nontender no lymphadenopathy. Trachea midline. Lungs clear to auscultation bilaterally. Diminished in both bases. Heart regular rhythm rate about 95 no murmur. Chest wall nontender. Abdomen soft nontender. Moving all 4 extremities. 1+ pitting edema both lower extremities. Equal symmetrical. Calves are nontender without edema or cords. Neurologically is awake and alert. Answering questions following commands. Normal patient care technician strength. Normal dorsi plantarflexion. Back unremarkable. Const Vital Signs: 06/22/23 07:52 06/22/23 07:58 06/22/23 08:01 Temperature 97 F L 97 F L Temperature Source Temporal Temporal Pulse Rate 95 94 Respiratory Rate 26 H 19 H Respiratory Effort Normal Non-Labored Respiratory Depth Normal Respiratory Pattern Normal Blood Pressure 161/81 H 161/81 H Blood Pressure Mean 107 107 Pulse Ox 88 96 Oxygen Delivery Method Room Air Nasal Cannula Nasal Cannula Oxygen Flow Rate (L/min) 2 2 06/22/23 08:51 Temperature Temperature Source Pulse Rate Respiratory Rate Respiratory Effort Respiratory Depth Respiratory Pattern Blood Pressure Blood Pressure Mean Pulse Ox 95 Oxygen Delivery Method Oxygen Flow Rate (L/min) 2 Positive well nourished and well developed; Negative for cachectic, contractures or unkempt General Appearance ED: well developed and NAD; Negative for unkempt, cachectic, contractures or pallor Nutritional Appearance: Negative for cachectic HEENT Reports moist mucous membranes atraumatic; Negative for trauma or tenderness Eyes PERRL and EOMs intact bilaterally General Eye ED: Negative for pale conjunctiva or scleral icterus Neck no lymphadenopathy, supple, no meningeal signs and no JVD General: Negative for tenderness Lymph Lymphatic: Negative for other Resp normal respiratory effort and clear to auscultation bilaterally Effort and Inspection: Negative for pain with movement Auscultation: Negative for rales, rhonchi or wheezes Cardio regular rate, regular rhythm, S1 normal heart sound, S2 normal heart sound and no murmurs Rate: Negative for bradycardia or tachycardic GI non-tender, non-distended and no masses Inspection: Negative for other Auscultation: normoactive bowel sounds Palpation: soft; Negative for tender, guarding or rebound tenderness present Back/Spine no CVA tenderness and normal to inspection General Back: Negative for CVA tenderness Extremity Negative for normal to inspection Extremity Narrative: Bilateral lower extremity 1+ pitting edema. Equal symmetrical. Calves are nontender. General Extremety ED: Yes edema; Negative for tenderness General Extremity: edema Neuro oriented x3 and CN's II-XII intact bilaterally Sensorium / Orientation: alert, oriented to person, oriented to place and oriented to time; Negative for orientation impaired, confused, lethargic or stuporous Motor Exam: strength 5/5 throughout Psych mental status grossly normal Appearance: Negative for unkempt Attitude: No agitated Mood & Affect: Negative for depressed, anxious or tearful Thought Process: normal thought process Skin no wounds General Skin Exam: Negative for jaundice or pallor Lesions: no lesions Rashes: no rashes MDM MDM MDM Narrative Medical decision making narrative: 82-year-old male history of end-stage renal disease on dialysis also history of CHF and anemia who presents with shortness of breath for weeks. No chest pain. Undergo cardiac workup. Differential includes effusions, CHF, pneumonia, anemia versus other etiologies. I think the patient has hypoxia due to pleural effusion and pulmonary edema. He had an echo that showed an EF of 20% months ago. Patient was taken off the oxygen just lying in bed he dropped to 84% with an attempt at walking. I already spoken to the hospitalist they are admitting and do further evaluation and try to get him set up with home oxygen if needed. History & Record Review Discussion w/independent historian: Patient Additional record(s) reviewed:: Prior inpatient record, Prior outpatient record, Prior ED visit and Prior labs Lab Data Attestation: I reviewed the patient's lab results. Lab results narrative: CBC shows a white count 8.8. H&H of 10.4 and 34 which is his baseline. Platelets 226. Electrolytes show a gap of 7. BUN and creatinine 49 and 5.3 he has known end-stage renal disease. Glucose 159. Troponins elevated 84. Patient's had similarly elevated troponins in the past and even higher. Chest x-ray shows pulmonary edema and right pleural effusion which she is also had in the past. Most recent echo showed an EF of 20%. Labs: Laboratory Results - last 24 hr 06/22/23 08:40 WBC 8.8 RBC 3.68 L Hgb 10.4 L Hct 34.1 L MCV 92.7 MCH 28.3 MCHC 30.5 L RDW Std Deviation 52.1 H RDW Coeff of Colleen 15.2 H Plt Count 226 MPV 10.4 Immature Gran % (Auto) 0.500 Neut % (Auto) 72.4 H Lymph % (Auto) 14.3 L Archuleta % (Auto) 8.6 Eos % (Auto) 3.4 Baso % (Auto) 0.8 Absolute Neuts (auto) 6.4 Absolute Lymphs (auto) 1.26 Nucleated RBC % 0 Sodium 140 Potassium 3.7 Chloride 100 Carbon Dioxide 33.0 H Anion Gap 7 BUN 49 H Creatinine 5.31 H Estim Creat Clear Calc 12.67 Est GFR (MDRD) Af Amer 13 L Est GFR (MDRD) Non-Af 11 L BUN/Creatinine Ratio 9.2 L Glucose 159 H Calcium 10.5 H Troponin I High Sens 84 H Radiography Chest X-Ray - ED: 1 View, Heart, Mediastinum, Bony Structures, Chronic Changes, CHF and Right Effusion Diagnostic Testing: Clinical Impression(s) from Imaging Studies Chest X-Ray 06/22/23 08:55 IMPRESSION: Findings suggestive of CHF with superimposed bibasilar atelectasis and/or infiltrates as described. Electronically Signed: Paul Escalante MD at 9:10 EST , Chest x-ray, portable, single view interpreted both by myself and the radiologist. Shows pulmonary edema. Right pleural effusion. Chronic changes. All seen on prior chest x-rays. Rhythm Strip Rhythm Strip: Sinus Rhythm Rate: 95 Ectopy: PVC(s) EKG Initial EKG: Attestation: I personally reviewed and interpreted this EKG as follows: Interpretation: Sinus Rhythm Comments: Normal sinus rhythm rate of 95. First-degree AV block. Occasional PVCs. LVH. No acute signs of MN or ischemia. Prior EKG tracings: available for review Prior: Unchanged Discharge Plan Dx/Rx/DC Orders Clinical Impression: Pleural effusion, Pulmonary edema, Hypoxia, End stage chronic kidney disease, Dialysis patient, Cardiomyopathy Disposition Disposition: Acute Care Hospital [facility]
[2023-06-22 08:45] LABS: Absolute Lymphocyte Count 1.26 X10^3/uL (0.83-4.51); Absolute Neutrophil Count 6.4 X10^3/uL (2.0-7.7); Basophil# 0.07 X10^3/uL; Basophil% 0.8 % (0-1); Eosinophils% 3.4 % (0-5); Hematocrit 34.1 % (40-54); Hemoglobin 10.4 g/dL (13.0-16.5); Lymphocyte # 1.26 X10^3/ul (0.83-4.51); Lymphocyte % 14.3 % (19-41); Mean Corp Hgb Conc 30.5 g/dL (32-36); Mean Corpuscular Hgb 28.3 pg (27.0-32.0); Mean Corpuscular Volume 92.7 fL (80-94); Mean Platelet Vol. 10.4 fl (6.2-12.0); Monocyte# 0.76 X10^3/uL; Monocyte% 8.6 % (0-10); NRBC Flagged by Analyzer 0 % (0-5); Neutrophil # 6.37 X10^3/uL (2.7-7.7); Neutrophil % 72.4 % (47-70); Platelet Count 226 K/mm3 (150-450); RBC Distribution Width CV 15.2 % (11.6-14.6); RBC Distribution Width SD 52.1 fl (35.1-43.9); Red Blood Count 3.68 M/mm3 (4.6-6.2); White Blood Count 8.8 K/mm3 (4.4-11.0)
--- NOTE | 2023-06-22 08:55 | RAD_ITS ---
STUDY: X-RAY CHEST REASON FOR EXAM: Male, 82 years old. Dyspnea and short of breath. TECHNIQUE: AP and lateral views of the chest. COMPARISON: Comparison is made with prior study dated genera 18/08/2023. FINDINGS: EKG electrodes are seen. There is evidence of CHF with blunting of both costophrenic angles worse on the right side. There is evidence of a atelectasis and/or infiltrates at the lung bases worse at the right lung base as well as in the left midlung. There is borderline cardiomegaly. Normal mediastinum and iftikhar. Normal visualized pulmonary arteries. Normal visualized aortic arch and descending thoracic aorta. There are diffuse degenerative changes of the visualized thoracic spine. Healed right rib fractures. There is no demonstrated abnormality of the visualized soft tissue structures of the upper abdomen. RAD/Chest 1 View (Portable) IMPRESSION: Findings suggestive of CHF with superimposed bibasilar atelectasis and/or infiltrates as described. Electronically Signed: Paul Escalante MD at 9:10 EST ,
--- OUTSIDE RECORDS SUMMARY | 2023-06-22 09:05 | XMS RPT_ITS | CCD ---
Author Name Unknown Address [address] [place] [address] Organization [facility] Care Team Providers Care Spa Manager/Esthetician Name Role Phone ARABELLA VILLARREAL MD Admitting [...] Reaction(s) Facility (1 source) Doxazosin Drug Allergy [facility] Repository (2 sources) Lisinopril; Translations: [LISINOPRIL] Drug Allergy 0 [facility] Repository (2 sources) Morphine; Translations: [MORPHINE] Drug Allergy 0 [facility] Repository (1 source) sun exposure Drug allergy (disorder) [facility] Repository (2 sources) Doxazosin; Translations: [DOXAZOSIN] Drug Allergy 0 Unknown [facility] (2 sources) Fosinopril; Translations: [FOSINOPRIL] Drug Allergy 0 Unknown [facility] (1 source) Lisinopril Drug Allergy 0 Unknown [facility] (1 source) Morphine Drug Allergy 0 Mental Status Change [facility] Medications Completed/Discontinued Medications Medication Drug [...] source) Long-term current use of anticoagulant; Translations: [long-term (current) use of anticoagulants] Onset: 02-02-2020 02-02-2020 [...] 98.6 [degF] Nicolas Mayorga APRN.CNP Work Phone: [facility] 09-03-2022 08:14-0400 Body weight 112.49 kg Nicolas Mayorga APRN.CNP Work Phone: [facility] 09-03-2022 08:14-0400 Diastolic blood pressure 100 mm[Hg] Nicolas Mayorga APRN.CNP Work Phone: [facility] 09-03-2022 08:14-0400 Heart rate 102 /min Nicolas Mayorga APRN.CNP Work Phone: [facility] 09-03-2022 08:14-0400 Respiratory rate 18 /min Nicolas Mayorga APRN.CNP Work Phone: [facility] 09-03-2022 08:14-0400 SaO2% (BldA) [Mass fraction] 96 % Nicolas Mayorga APRN.CNP Work Phone: [facility] 09-03-2022 08:14-0400 Systolic blood pressure 168 mm[Hg] Nicolas Mayorga APRN.TAKE OUT WAITER Work Phone: [facility] Encounters Encounter Date Encounter Type Care Provider Facility Start: 09-03-2022 End: 09-03-2022 ambulatory Facility:[facility] Start: 09-03-2022 End: 09-03-2022 Patient encounter procedure Nicolas Mayorga APRN.CNP Work Phone: [facility] Plan of Treatment Date Care Activity Detail Author Start: 12-29-2022 Influenza vaccination INFLUENZ A (Season Ended) [facility] Start: 04-30-2022 ADVANCE DIRECTIVE DISCUSSION ADVANCE DIRECTIVE DISCUSSION [facility] Start: 04-28-2021 COVID-19 VACCINE (4 - Booster for Pfizer series) COVID-19 VACCINE (4 - Booster for Pfizer series) [facility] Start: 03-12-2018 DIABETES SCREEN DIABETES SCREEN [facility] Start: 1957 SHINGRIX VACCINE (1 of 2) SHINGRIX VACCINE (1 of 2) [facility] Start: 1957 Urine microalbumin profile DTAP,TDAP,TD (1 - Tdap) [facility] Start: 1944 PNEUMOCOCCAL: 65+ (1 - PCV) PNEUMOCOCCAL: 65+ (1 - PCV) [facility] Radiologic exam ches t 2 views XR CHEST 2V FRONTAL/LAT Radiology STAT SOB (shortness of breath) Ordered: 09/03/2022 [facility] Work Phone: Payers Date Payer Category Payer Medicaid [facility] MEDICAID MYC ARE [facility] MEDICAID [id number] 2022-Present [phone] [address] [place] [address] Medicaid [id number] 2022 Medicare UHC MEDICARE MYC ARE UHC MEDICARE [id number] 2022-Present [phone] [address] [place] [address] Medicare [id number] 2022 Medicare [id number] 1938 Unknown [id number] 1938 Unknown [id number] 1938 Unknown [id number] 1938 Unknown [id number] 1938 Unknown [id number] 1938 Unknown [id number] 1938 Unknown [id number] 1938 Unknown [id number] 1938 Unknown [id number] Medicaid [id number] Medicaid [id number] Medicare [id number] Social History Date Type Detail Facility Start: 09-03-2022 [facility] Work Phone: End: 04-30-1987 History of tobacco use Current smoker [facility] Work Phone: End: 04-30-1987 History of tobacco use Cigarette Smoker [facility] Work Phone: Start: 09-03-2022 Tobacco use and exposure Former smokeless tobacco user [facility] Work Phone: End: 04-30-1987 History of tobacco use User of smokeless tobacco [facility] Work Phone: Start: 1940 Sex Assigned At Not on file [facility] Progress note 09-03-2022 Note Date & Type Note Facility 09-03-2022 Note HNO ID: [id number] Author: Nicolas Mayorga APRN.TAKE OUT WAITER Service: ? Author Type: Nurse Practitioner Type: [...] NASAL) 0.65 % nasal spray Use 1 Frost in the nose every 2 hours as [...] XR CHEST 2V FRONTAL/LAT Nicolas Mayorga APRN.EMILIA [facility] History of Present illness Narrative 09-03-2022 [...] NASAL) 0.65 % nasal spray Use 1 Frost in the nose every 2 hours as [...] Nicolas Mayorga APRN.EMILIA documented in this encounter [facility] Evaluation note Note Date & Type Note Facility documented in this encounter [facility] Summary Purpose Family History No Family History Records FoundNo Family History Records Found Advance Directives No Advanced Directives Records FoundNo Advanced Directives Records Found Additional Source Comments (unrecognized sect ion and content) No Status Records FoundNo Status Records Found INFORMATION SOURCE (unrecogn ized section and content) DATE CREATED AUTHOR AUTHOR'S ORGANIZ ATION 09/04/2022 [facility] Source Comments (unrecognize d section and content) In the event this informatio n is protected by the Federal Confidentiality of Alcohol and Drug Abuse Patient Records regulations: The Federal rules restrict any use of the information to criminally investigate or prosecute any alcohol or drug abuse patient.[facility] Reason for Visit (unrecogniz ed [...] BE BASED ON THE PRIMARY CLINICAL RECORDS. [facility]. provides no warranty or guarantee of the accuracy or completeness of information in this document.
[2023-06-22 09:09] LABS: Anion Gap 7 (5-15); BUN 49 mg/dL (7-18); BUN/Creat Ratio 9.2 RATIO (10-20); Calcium,Total 10.5 mg/dL (8.5-10.1); Chloride 100 mmol/L (98-107); Creatinine, Serum 5.31 mg/dL (0.70-1.30); EST Glomerular Filtration Rate 11 mL/min (>60); Est Glom Filt Rate - Afr Amer 13 mL/min (>60); Estimated Creatinine Clearance 12.67 ml/min; Glucose 159 mg/dL (74-106); Potassium 3.7 mmol/L (3.5-5.1); Sodium Level 140 mmol/L (136-145); Troponin-I HS 84 pg/mL (3.0-78.0)
--- NOTE | 2023-06-22 11:45 | HP.PCM_ITS ---
HPI - General General Date of Admission: 06/22/23 Date of Service: 06/22/23 Chief Complaint: shortness of breath HPI Narrative ARIANNA GUILLERMO, is a 82 M with a PMH as outlined who presents ia the ED on 06/22/2023 with a complaint of shortness of breath. He has a PMH which includes ESRD on dialysis. He went for dialysis today and was feeling short of breath. He said the shortness of breath had been going on for about a month prior to admis leonie. He denied chest pain, palpitations, dizziness, nausea, vomiting or any other symptoms. Review of systems was otherwise negative. Vitals in the ED were temp of 97F,. DE of 94, BP of 161/81 nd RR of 19. He was saturating at 95% on 2L of oxygen. CBC showd hb of 10.4, wbc of 8.8 and platelets of 226. Chemistry showed sodium of 140, potassium of 3.7 and Cr of 5.31 with clcium of 10.5. and initial troponin of 84. CXR showed evidence of CH with blunting of both costophrenic angles worse on the right side and evidence of atelectasis and/or infiltrates at hte lung bases worse at hte right lung base as well as in the left midlung. He is being admitted to be managed for hypoxia in the setting of ESRD likely due to fluid overload. FORMERLY [facility] Medical History Abnormal electrocardiogram Abnormal nuclear stress test Acute renal insufficiency Anemia of chronic illness Angina pectoris Arthritis Atherosclerosis of [place] coronary artery of [place] heart without angina pecto ris Benign essential hypertension Benign prostatic hypertrophy without lower urinary tract symptoms BMI 40.0-44.9, adult Breast mass, left Chest pain Chest pain on exertion Chronic anemia Chronic kidney disease Chronic renal failure, stage 3 (moderate) Coronary artery disease Diastolic heart failure End stage renal disease ESRD on hemodialysis Essential hypertension Fatigue Gastroesophageal reflux disease History of heart failure Hyperlipidemia Hypertension Hypokalemia Long-term use of high-risk medication Melanotic stools Normochromic normocytic anemia ALY (obstructive sleep apnea) Pulmonary hypertension Shortness of breath Sinus bradycardia Skin lesion Home Medications finasteride 5 mg tablet 5 mg PO 1200 PROSTATE 04/01/14 [History Last Taken 05/06/23] nitroglycerin 0.4 mg sublingual tablet 0.4 mg sublingual Q5M PRN Chest Pain 02/01/15 [History Last Taken 02/27/15] acetaminophen 325 mg capsule 650 mg PO TID pain/fever 02/20/18 [History Last Taken 05/07/23] levothyroxine 50 mcg tablet 50 mcg PO 1200 THYROID 05/02/18 [History Last Taken 05/04/23] loratadine 10 mg tablet 10 mg PO DAILY ALLERGIES 10/03/18 [History Last Taken 05/06/23] tamsulosin 0.4 mg capsule (Flomax) 0.4 mg PO 1700 PROSTATE 04/02/19 [History Last Taken 05/06/23] buspirone 5 mg tablet 5 mg PO BID ANXIETY 12/25/19 [History Last Taken 05/07/23] fluticasone propionate 50 mcg/actuation nasal spray,suspension (Allergy Relief (fluticasone)) 1 spray intranasal 1200 NASAL CONGESTION 05/05/22 [History Last Taken 05/04/23] guaifenesin 600 mg tablet, extended release 12 hr (Mucinex) 600 mg PO BID MUCUS RELIEF 05/05/22 [History Last Taken Unknown] montelukast 10 mg tablet 10 mg PO QHS ALLERGIES 05/05/22 [History Last Taken 05/06/23] omega 0-lqu-azo-fish oil 60 mg-90 mg-500 mg capsule (Fish Oil) 1 cap PO BID SUPPLEMENT 05/05/22 [History Last Taken 05/07/23] pantoprazole 40 mg tablet,delayed release 40 mg PO 1200 ACID REFLUX 05/05/22 [History Last Taken 05/04/23] amlodipine 5 mg tablet 5 mg PO DAILY BLOOD PRESSURE 05/07/23 [History Last Taken 05/04/23] aspirin 81 mg tablet,delayed release 81 mg PO 1200 HEART HEALTH 05/07/23 [History Last Taken 05/04/23] clopidogrel 75 mg tablet 75 mg PO 1200 BLOOD THINNER 05/07/23 [History Last Taken 05/06/23] hydromorphone 4 mg tablet 4 mg PO Q4H PRN PAIN 05/07/23 [History Last Taken 05/07/23] multivitamin-iron 9 mg-folic acid 400 mcg-calcium and minerals tablet (Thera-M) 1 tab PO 1200 SUPPLEMENT 05/07/23 [History Last Taken 05/05/23] pravastatin 20 mg tablet 20 mg PO 1700 CHOLESTEROL 05/07/23 [History Last Taken 05/06/23] torsemide 20 mg tablet 20 mg PO DAILY EDEMA 05/07/23 [History Last Taken 05/06/23] vit C 250 mg-vit E 90 mg-zinc 40 mg-copper 1 fn-[id number] capsule (PreserVision AREDS-2) 1 tab PO BID SUPPLEMENT 05/07/23 [History Last Taken 05/06/23] cefdinir 300 mg capsule 300 mg PO DAILY 2 days #2 caps 05/29/23 [Rx Last Taken Unknown] Allergy/AdvReac Type Severity Reaction Status Date / Time doxazosin mesylate Allergy Hives Verified 06/22/23 07:59 [From Cardura] fosinopril sodium Allergy Hives Verified 06/22/23 07:59 [From Monopril] lisinopril Allergy Hives Verified 06/22/23 07:59 morphine Allergy Other Verified 06/22/23 07:59 Family History Father Hypertension Cancer Brother CAD (coronary artery disease) Mother Hypertension Sister Hypertension Son Atrial fibrillation Surgical History history fistulogram (~07/27/17) History of angioplasty History of bilateral hip arthroplasty History of left breast biopsy (~06/2018) 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 S/P peripheral artery angioplasty (~03/2022) Status post right partial knee replacement Social History household members: none housing: jail Smoking Status: Former smoker Tobacco: How many years used: 20 second hand exposure: No alcohol intake: never substance use type: does not use caffeine: No what type of physical activity do you participate in: none ROS Constitutional Constitutional: Reports fatigue, malaise and weakness; Denies anorexia, chills or fever(s) Eyes Eyes: Denies change in vision ENT HEENT: Reports sore throat; Denies dysphagia or throat swelling Cardiovascular Cardiovascular: Reports edema and orthopnea; Denies chest pain, palpitations, paroxysmal nocturnal dyspnea or syncope Respiratory/Chest Respiratory/Chest: Reports shortness of breath at rest and shortness of breath with exertion; Denies cough or wheezing Gastrointestinal Gastrointestinal: Denies abdominal pain, constipation, diarrhea, nausea or vomiting Genitourinary Genitourinary: Denies dysuria Psychiatric Psychiatric: Denies anxiety or depression Vital Signs Vital Signs Vital Signs: 06/22/23 07:52 06/22/23 07:58 06/22/23 08:01 Temperature 97 F L 97 F L Temperature Source Temporal Temporal Pulse Rate 95 94 Respiratory Rate 26 H 19 H Respiratory Effort Normal Non-Labored Respiratory Depth Normal Respiratory Pattern Normal Blood Pressure 161/81 H 161/81 H Blood Pressure Mean 107 107 Pulse Ox 88 96 Oxygen Delivery Method Room Air Nasal Cannula Nasal Cannula Oxygen Flow Rate (L/min) 2 2 06/22/23 08:51 Temperature Temperature Source Pulse Rate Respiratory Rate Respiratory Effort Respiratory Depth Respiratory Pattern Blood Pressure Blood Pressure Mean Pulse Ox 95 Oxygen Delivery Method Oxygen Flow Rate (L/min) 2 Weight Weight: 250 lb 7.122 oz Body Mass Index (BMI) 38.0 Physical Exam Const alert and oriented x3 Constitutional Narrative: in moderate distress due to chronic back pain General Appearance: cooperative HEENT normocephalic, head/scalp atraumatic, moist oral mucous membranes and oropharynx normal Eyes PERRL and EOMs intact bilaterally Neck no lymphadenopathy and supple Lymph Lymphatic: no lymphadenopathy noted and no lymphedema noted Resp Resp Narrative: moderately diminished breath sounds bilaterally, mild wheezing, no crackles. Cardio regular rate, regular rhythm, S1 normal heart sound, S2 normal heart sound and no murmurs GI normal to inspection, nondistended, normoactive bowel sounds, soft to palpation, non-tender and non-distended Extremity normal capillary refill Extremity Narrative: bilateral 1+ lower extremity edema. Stasis dermatitis. AV fisutla in LUE with good thrill General Extremity: no tenderness to palpation of joints or extremities Skin Skin Narrative: stasis dermatitis on lower extremities Neuro CN's II-XII intact bilaterally and no focal motor deficits Motor Exam: general weakness Psych thought process normal and cooperative Appearance: appropriate Results Lab / Micro Data 06/22/23 08:40 06/22/23 08:40 Labs: Laboratory Results - last 24 hr 06/22/23 08:40: WBC 8.8, RBC 3.68 L, Hgb 10.4 L, Hct 34.1 L, MCV 92.7, MCH 28.3, MCHC 30.5 L, RDW Std Deviation 52.1 H, RDW Coeff of Colleen 15.2 H, Plt Count 226, MPV 10.4, Immature Gran % (Auto) 0.500, Neut % (Auto) 72.4 H, Lymph % (Auto) 14.3 L, [place] % (Auto) 8.6, Eos % (Auto) 3.4, Baso % (Auto) 0.8, Absolute Neuts (auto) 6.4, Absolute Lymphs (auto) 1.26, Nucleated RBC % 0, Sodium 140, Potassium 3.7, Chloride 100, Carbon Dioxide 33.0 H, Anion Gap 7, BUN 49 H, Creatinine 5.31 H, Estim Creat Clear Calc 12.67, Est GFR (MDRD) Af Amer 13 L, Est GFR (MDRD) Non-Af 11 L, BUN/Creatinine Ratio 9.2 L, Glucose 159 H, Calcium 10.5 H, Troponin I High Sens 84 H Rhythm Strip Rhythm Strip: Sinus Rhythm Rate: 95 Ectopy: PVC(s) Imaging Radiology Impression Chest X-Ray 06/22/23 08:55 IMPRESSION: Findings suggestive of CHF with superimposed bibasilar atelectasis and/or infiltrates as described. Electronically Signed: Paul Escalante MD at 9:10 EST , Assessment & Plan Assessment/Plan (1) Cardiomyopathy: (2) End stage chronic kidney disease: (3) Hypoxia: PLAN: Plan #Fluid overload in the setting of cardiomyopathy and ESRD * Patient was in dialysis today and felt short of breath. His shortness of breath been going on for about a month. Dialysis was stopped and he was brought into the ED. Had only about 30 minutes of dialysis. * Chest x-ray showed evidence of fluid overload. Nephrology consulted. * Had 2D echo in September 2021 which showed EF of 20%. Repeat 2D echo done today showed EF of 30% with mild global hypokinesis of the left ventricle and pulmonary artery systolic pressure of 6 cm of mercury indicating moderate pulmonary hypertension. * I think his pulmonary hypertension is contributing to his persistent shortness of breath. The group 3-4 out of dialysis today. * His EF seems to have improved though his pulmonary hypertension persists. * . Titrate oxygen to saturation above 90%. Breathing treatments bronchodilators. #ESRD on hemodialysis. Currently in fluid overload as above. #Hyperlipidemia: On statin #Hypothyroidism: On Synthroid # History of CAD: On aspirin and Plavix as well as statin. #Chronic back pain: On hydromorphone tablet 4 mg every 4 as needed. P.o. Tylenol as needed. #DVT prophylaxis: Heparin CODE STATUS: DNR CCA no intubation * Patient counseled extensively about different types of CODE STATUS including full code, DNR CCA and DNR CCA. Patient elects to be DNRCCA no intubation. Total rrqv-vg-iwom time 16 minutes. Charges/Coding Visit Charges Inpatient E&M: 01088 Init Hosp L3 Procedures Hospitalists Procedures: 33179 Advncd Care Plan 30 Min
--- OUTSIDE RECORDS SUMMARY | 2023-06-22 12:44 | XMS RPT_ITS | CCD ---
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 Sheet Metal Worker Name Role Phone ARABELLA VILLARREAL MD Admitting Unavailable ARABELLA VILLARREAL MD Attending Unavailable ARABELLA VILLARREAL MD Primary Care Unavailable CHEMO BAUTISTA MD Admitting Unavailable CHEMO BAUTISTA MD Attending Unavailable CHEMO ABUTISTA MD Primary Care Unavailable AMADA ZIMMER PA-C [...] LAWRENCE, DR RADHA Trujillo Primary Care Unavaila RAIF Mcmillan MD Admitting Unavailable RAFI BUCK MD Attending Unavailable RAFI BUCK MD Primary Care Unavailable LAWRENCE, DR RADHA Trujillo Admitting Unavaila ble LAWRENCE, DR RADHA Trujillo Attending Unavaila ble LAWRENCE, DR RADHA Trujillo Primary Care Unavaila ble Unavailable Primary Care Provider Unavailottoniel e Allergies Allergy Classification Reported Allergen(s) Allergy Type Date of Onset Reaction(s) Facility (1 source) Doxazosin Drug Allergy [facility] Repository (2 sources) Lisinopril; Translations: [LISINOPRIL] Drug Allergy 0 [facility] Repository (2 sources) Morphine; Translations: [MORPHINE] Drug Allergy 0 [facility] Repository (1 source) sun exposure Drug allergy (disorder) [facility] Repository (2 sources) Doxazosin; Translations: [DOXAZOSIN] Drug Allergy 0 Unknown [facility] (2 sources) Fosinopril; Translations: [FOSINOPRIL] Drug Allergy 0 Unknown [facility] (1 source) Lisinopril Drug Allergy 0 Unknown [facility] (1 source) Morphine Drug Allergy 0 Mental Status Change [facility] Medications Completed/Discontinued Medications Medication Drug Class(es) [...] source) Long-term current use of anticoagulant; Translations: [USP (current) use of anticoagulants] Onset: 02-02-2020 02-02-2020 [...] 98.6 [degF] Nicolas Mayorga APRN.CNP Work Phone: [facility] 09-03-2022 08:14-0400 Body weight 112.49 kg Nicolas Mayorga APRN.CNP Work Phone: [facility] 09-03-2022 08:14-0400 Diastolic blood pressure 100 mm[Hg] Nicolas Mayorga APRN.CNP Work Phone: [facility] 09-03-2022 08:14-0400 Heart rate 102 /min Nicolas Mayorga APRN.CNP Work Phone: [facility] 09-03-2022 08:14-0400 Respiratory rate 18 /min Nicolas Mayorga APRN.CNP Work Phone: [facility] 09-03-2022 08:14-0400 SaO2% (BldA) [Mass fraction] 96 % Nicolas Mayorga APRN.CNP Work Phone: [facility] 09-03-2022 08:14-0400 Systolic blood pressure 168 mm[Hg] Nicolas Mayorga APRN.INFORMATION ASSURANCE ENGINEER Work Phone: [facility] Encounters Encounter Date Encounter Type Care Provider Facility Start: 09-03-2022 End: 09-03-2022 ambulatory Facility:[facility] Start: 09-03-2022 End: 09-03-2022 Patient encounter procedure Nicolas Mayorga APRN.CNP Work Phone: [facility] Plan of Treatment Date Care Activity Detail Author Start: 12-29-2022 Influenza vaccination INFLUENZ A (Season Ended) [facility] Start: 04-30-2022 ADVANCE DIRECTIVE DISCUSSION ADVANCE DIRECTIVE DISCUSSION [facility] Start: 04-28-2021 COVID-19 VACCINE (4 - Booster for Pfizer series) COVID-19 VACCINE (4 - Booster for Pfizer series) [facility] Start: 03-12-2018 DIABETES SCREEN DIABETES SCREEN [facility] Start: 1957 SHINGRIX VACCINE (1 of 2) SHINGRIX VACCINE (1 of 2) [facility] Start: 1957 Urine microalbumin profile DTAP,TDAP,TD (1 - Tdap) [facility] Start: 1944 PNEUMOCOCCAL: 65+ (1 - PCV) PNEUMOCOCCAL: 65+ (1 - PCV) [facility] Radiologic exam ches t 2 views XR CHEST 2V FRONTAL/LAT Radiology STAT SOB (shortness of breath) Ordered: 09/03/2022 [facility] Work Phone: Payers Date Payer Category Payer Medicaid [facility] MEDICAID MYC ARE [facility] MEDICAID [id number] 2022-Present [phone] [address] [place] [address] Medicaid [id number] 2022 Medicare UHC MEDICARE MYC ARE UHC MEDICARE [id number] 2022-Present [phone] [address] [place] [address] Medicare [id number] 2022 Medicare [id number] 1938 Unknown [id number] 1938 Unknown [id number] 1938 Unknown [id number] 1938 Unknown [id number] 1938 Unknown [id number] 1938 Unknown [id number] 1938 Unknown [id number] 1938 Unknown [id number] 1938 Unknown [id number] Medicaid [id number] Medicaid [id number] Medicare [id number] Social History Date Type Detail Facility Start: 09-03-2022 [facility] Work Phone: End: 04-30-1987 History of tobacco use Current smoker [facility] Work Phone: End: 04-30-1987 History of tobacco use Cigarette Smoker [facility] Work Phone: Start: 09-03-2022 Tobacco use and exposure Former smokeless tobacco user [facility] Work Phone: End: 04-30-1987 History of tobacco use User of smokeless tobacco [facility] Work Phone: Start: 1940 Sex Assigned At Not on file [facility] Progress note 09-03-2022 Note Date & Type Note Facility 09-03-2022 Note HNO ID: [id number] Author: Nicolas Mayorga APRN.INFORMATION ASSURANCE ENGINEER Service: ? Author Type: Nurse Practitioner Type: [...] NASAL) 0.65 % nasal spray Use 1 [place] in the nose every 2 hours as [...] XR CHEST 2V FRONTAL/LAT Nicolas Mayorga APRN.EMILIA [facility] History of Present illness Narrative 09-03-2022 Nicolas [...] NASAL) 0.65 % nasal spray Use 1 [place] in the nose every 2 hours as [...] Nicolas Mayorga APRN.EMILIA documented in this encounter [facility] Evaluation note Note Date & Type Note Facility documented in this encounter [facility] Summary Purpose Family History No Family History Records FoundNo Family History Records Found Advance Directives No Advanced Directives Records FoundNo Advanced Directives Records Found Additional Source Comments (unrecognized sect ion and content) No Status Records FoundNo Status Records Found INFORMATION SOURCE (unrecogn ized section and content) DATE CREATED AUTHOR AUTHOR'S ORGANIZ ATION 09/04/2022 [facility] Source Comments (unrecognize d section and content) In the event this informatio n is protected by the Federal Confidentiality of Alcohol and Drug Abuse Patient Records regulations: The Federal rules restrict any use of the information to criminally investigate or prosecute any alcohol or drug abuse patient.[facility] Reason for Visit (unrecogniz ed section [...] BE BASED ON THE PRIMARY CLINICAL RECORDS. [facility]. provides no warranty or guarantee of the accuracy or completeness of information in this document.
--- NOTE | 2023-06-22 12:53 | ECHOD_ITS ---
Reason For Study: CHF Procedure This was a 2D Doppler, Color Flow transthoracic echocardiogram. Patient scanned sitting up while receiving dialysis. Exam performed portable in patient room. Left Ventricle Normal LV size. The left ventricular ejection fraction is 30 %. There is mild global hypokinesis of the left ventricle. Right Ventricle Normal RV size. Normal systolic function. Mitral Valve There is mild mitral annular calcification. Mild (1+) eccentric mitral valve insufficiency. Tricuspid Valve Normal tricuspid valve. Moderate (2+) tricuspid valve insufficiency. Pulmonary artery systolic pressure is 67 mmHg. Moderate pulmonary hypertension. Aortic Valve Trisinus/trileaflet aortic valve. Moderate focal aortic valve calcification. Pulmonic Valve Normal pulmonic valve. Great Vessels Normal aortic root. The pulmonary artery is normal size. Normal inferior vena cava. Pericardium/Pleural No pericardial effusion. MMode/2D Measurements & Calculations LVIDd: 5.3 cm IVSd: 1.6 cm LVOT diam: 2.2 cm LVIDs: 4.3 cm LVPWd: 1.5 cm LVOT area: 3.8 cm2 RVDd: 4.2 cm FS: 19.8 % Ao root diam: 3.4 cm LAV(MOD-bp): 85.9 ml LVAd ap4: 41.8 cm2 LAV(MOD-bp) Indexed: 38.2 ml/m2 LVLd ap4: 9.9 cm LAV(MOD-sp2): 76.7 ml EDV(MOD-sp4): 144.2 ml LAV(MOD-sp4): 71.2 ml EDV(sp4-el): 149.7 ml LVAs ap4: 34.1 cm2 LVLs ap4: 9.1 cm ESV(MOD-sp4): 105.7 ml ESV(sp4-el): 108.0 ml EF(MOD-sp4): 26.7 % EF(sp4-el): 27.9 % SV(MOD-sp4): 38.5 ml SV(MOD-sp2): 45.9 ml LVAd ap2: 47.2 cm2 LVLd ap2: 10.2 cm EDV(MOD-sp2): 178.9 ml EDV(sp2-el): 185.4 ml LVAs ap2: 39.0 cm2 LVLs ap2: 9.8 cm ESV(MOD-sp2): 133.0 ml ESV(sp2-el): 132.4 ml EF(MOD-sp2): 25.6 % SV(sp4-el): 41.7 ml LA A4 area: 21.1 cm2 LA dimension(2D): 4.6 cm TAPSE: 2.2 cm RA A4 area: 19.3 cm2 Doppler Measurements & Calculations MV E max cisco: 132.3 cm/sec Lat Peak E' Cisco: 7.5 cm/sec Med Peak E' Cisco: 4.4 cm/sec MV A max cisco: 108.9 cm/sec E/E' lat: 17.7 E/E' med: 30.1 MV E/A: 1.2 MV V2 max: 159.8 cm/sec MV P1/2t max cisco: 153.5 cm/sec Ao V2 max: 191.1 cm/sec MV max P.2 mmHg MV P1/2t: 71.8 msec Ao max P.6 mmHg MV V2 mean: 84.9 cm/sec MV dec slope: 626.0 cm/sec2 Ao V2 mean: 131.4 cm/sec MV mean P.7 mmHg Ao mean P.0 mmHg MV V2 VTI: 26.8 cm MVA(P1/2t): 3.1 cm2 Ao V2 VTI: 38.7 cm MVA(VTI): 2.8 cm2 AV (velocity ratio): 0.50 MAGDY(I,D): 1.9 cm2 MAGDY(V,D): 2.0 cm2 LV V1 max: 100.4 cm/sec SV(LVOT): 73.8 ml PA V2 max: 93.5 cm/sec LV V1 max P.0 mmHg LV V1 mean P.9 mmHg LV V1 mean: 61.5 cm/sec LV V1 VTI: 19.3 cm TR max cisco: 397.1 cm/sec TR max P.1 mmHg ECHO/Echo Complete Interpretation Summary There is mild global hypokinesis of the left ventricle. Normal LV size. The left ventricular ejection fraction is 30 %. Pulmonary artery systolic pressure is 67 mmHg. Moderate pulmonary hypertension. Ordering Physician: Arline Cruz Referring Physician: Germania Penn Performed By: Stefanie Ramsey RDCS
[2023-06-22] MEDS: PureFlow B 3K Dialysis Soln 1 BAG 6 BAG PF (13:32)
[2023-06-22] MEDS: 0.9% Normal Saline 1,000 ML IV.SOLN. 1000 ML OPERA.SITE (13:32)
[2023-06-22] MEDS: Acetaminophen 325 MG Tablet 650 MG PO (14:18)
[2023-06-22] MEDS: Heparin Injection (Vial) 5,000 UNIT/ML VIAL 5000 UNIT SC (14:18)
--- NOTE | 2023-06-22 15:24 | CON.PCM.RE_ITS ---
Assessment & Plan Assessment/Plan (1) End stage chronic kidney disease: PLAN: On hemodialysis. Received only 30 minutes of dialysis earlier today. Labs are okay. Chest x-ray looks pretty wet. We will do the rest of the treatments today. Discussed with hospitalist. HPI Consult Data Date of Consult: 06/22/23 HPI Narrative Reason for Consultation: ESRD HPI Narrative: ARIANNA GUILLERMO, is a 82 M who presents To the hospital with shortness of breath. Nephrology on consultation due to ESRD. On hemodialysis Sunday, Sunday, Sunday schedule. CC still operator Dr. Laura. He went to dialysis today and complained of shortness of breath. He was taken off dialysis 30 minutes into dialysis and sent into the ER. Currently he is alert, awake, looks comfortable. Saturating well on nasal cannula. For access he has a left AV fistula radiocephalic. Denies any fevers, chills, cough. He says his dyspnea has been going on for about a month now. [facility] Medical History Abnormal electrocardiogram Abnormal nuclear stress test Acute renal insufficiency Anemia of chronic illness Angina pectoris Arthritis Atherosclerosis of [place] coronary artery of [place] heart without angina pectoris Benign essential hypertension Benign prostatic hypertrophy without lower urinary tract symptoms BMI 40.0-44.9, adult Breast mass, left Chest pain Chest pain on exertion Chronic anemia Chronic kidney disease Chronic renal failure, stage 3 (moderate) Coronary artery disease Diastolic heart failure End stage renal disease ESRD on hemodialysis Essential hypertension Fatigue Gastroesophageal reflux disease History of heart failure Hyperlipidemia Hypertension Hypokalemia Long-term use of high-risk medication Melanotic stools Normochromic normocytic anemia ALY (obstructive sleep apnea) Pulmonary hypertension Shortness of breath Sinus bradycardia Skin lesion Home Medications finasteride 5 mg tablet 5 mg PO 1200 PROSTATE 04/01/14 [History Last Taken 05/06/23] nitroglycerin 0.4 mg sublingual tablet 0.4 mg sublingual Q5M PRN Chest Pain 02/01/15 [History Last Taken 02/27/15] acetaminophen 325 mg capsule 650 mg PO TID pain/fever 02/20/18 [History Last Taken 05/07/23] levothyroxine 50 mcg tablet 50 mcg PO 1200 THYROID 05/02/18 [History Last Taken 05/04/23] loratadine 10 mg tablet 10 mg PO DAILY ALLERGIES 10/03/18 [History Last Taken 05/06/23] tamsulosin 0.4 mg capsule (Flomax) 0.4 mg PO 1700 PROSTATE 04/02/19 [History Last Taken 05/06/23] buspirone 5 mg tablet 5 mg PO BID ANXIETY 12/25/19 [History Last Taken 05/07/23] fluticasone propionate 50 mcg/actuation nasal spray,suspension (Allergy Relief (fluticasone)) 1 spray intranasal 1200 NASAL CONGESTION 05/05/22 [History Last Taken 05/04/23] guaifenesin 600 mg tablet, extended release 12 hr (Mucinex) 600 mg PO BID MUCUS RELIEF 05/05/22 [History Last Taken Unknown] montelukast 10 mg tablet 10 mg PO QHS ALLERGIES 05/05/22 [History Last Taken 05/06/23] omega 8-wps-vfj-fish oil 60 mg-90 mg-500 mg capsule (Fish Oil) 1 cap PO BID SUPPLEMENT 05/05/22 [History Last Taken 05/07/23] pantoprazole 40 mg tablet,delayed release 40 mg PO 1200 ACID REFLUX 05/05/22 [History Last Taken 05/04/23] amlodipine 5 mg tablet 5 mg PO DAILY BLOOD PRESSURE 05/07/23 [History Last Taken 05/04/23] aspirin 81 mg tablet,delayed release 81 mg PO 1200 HEART HEALTH 05/07/23 [History Last Taken 05/04/23] clopidogrel 75 mg tablet 75 mg PO 1200 BLOOD THINNER 05/07/23 [History Last Take n 05/06/23] hydromorphone 4 mg tablet 4 mg PO Q4H PRN PAIN 05/07/23 [History Last Taken 05/07/23] multivitamin-iron 9 mg-folic acid 400 mcg-calcium and minerals tablet (Thera-M) 1 tab PO 1200 SUPPLEMENT 05/07/23 [History Last Taken 05/05/23] pravastatin 20 mg tablet 20 mg PO 1700 CHOLESTEROL 05/07/23 [History Last Taken 05/06/23] torsemide 20 mg tablet 20 mg PO DAILY EDEMA 05/07/23 [History Last Taken 05/06/23] vit C 250 mg-vit E 90 mg-zinc 40 mg-copper 1 ak-zlufzt-oblnso capsule (PreserVision AREDS-2) 1 tab PO BID SUPPLEMENT 05/07/23 [History Last Taken 05/06/23] cefdinir 300 mg capsule 300 mg PO DAILY 2 days #2 caps 05/29/23 [Rx Last Taken Unknown] Allergy/AdvReac Type Severity Reaction Status Date / Time doxazosin mesylate Allergy Hives Verified 06/22/23 07:59 [From Cardura] fosinopril sodium Allergy Hives Verified 06/22/23 07:59 [From Monopril] lisinopril Allergy Hives Verified 06/22/23 07:59 morphine Allergy Other Verified 06/22/23 07:59 Family History Father Hypertension Cancer Brother CAD (coronary artery disease) Mother Hypertension Sister Hypertension Son Atrial fibrillation Surgical History history fistulogram (~07/27/17) History of angioplasty History of bilateral hip arthroplasty History of left breast biopsy (~06/2018) 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 S/P peripheral artery angioplasty (~03/2022) Status post right partial knee replacement Social History household members: none housing: skilled nursing Smoking Status: Former smoker Tobacco: How many years used: 20 second hand exposure: No alcohol intake: never substance use type: does not use caffeine: No what type of physical activity do you participate in: none ROS ROS Narrative Negative except above Physical Exam Narrative Alert awake oriented x 3 no obvious distress no pallor no icterus no JVD s1s2 no murmurs lungs clear abdomen soft no organomegaly no edema no cyanosis Lab / Micro Data 06/22/23 08:40 06/22/23 08:40 Labs: Laboratory Results - last 24 hr 06/22/23 08:40: WBC 8.8, RBC 3.68 L, Hgb 10.4 L, Hct 34.1 L, MCV 92.7, MCH 28.3, MCHC 30.5 L, RDW Std Deviation 52.1 H, RDW Coeff of Colleen 15.2 H, Plt Count 226, MPV 10.4, Immature Gran % (Auto) 0.500, Neut % (Auto) 72.4 H, Lymph % (Auto) 14.3 L, [place] % (Auto) 8.6, Eos % (Auto) 3.4, Baso % (Auto) 0.8, Absolute Neuts (auto) 6.4, Absolute Lymphs (auto) 1.26, Nucleated RBC % 0, Sodium 140, Potassium 3.7, Chloride 100, Carbon Dioxide 33.0 H, Anion Gap 7, BUN 49 H, Creatinine 5.31 H, Estim Creat Clear Calc 12.67, Est GFR (MDRD) Af Amer 13 L, Est GFR (MDRD) Non-Af 11 L, BUN/Creatinine Ratio 9.2 L, Glucose 159 H, Calcium 10.5 H, Troponin I High Sens 84 H Rhythm Strip Rhythm Strip: Sinus Rhythm Rate: 95 Ectopy: PVC(s) Imaging Radiology Impression Chest X-Ray 06/22/23 08:55 IMPRESSION: Findings suggestive of CHF with superimposed bibasilar atelectasis and/or infiltrates as described. Electronically Signed: Paul Escalante MD at 9:10 EST , Echocardiogram 06/22/23 12:53 Interpretation Summary There is mild global hypokinesis of the left ventricle. Normal LV size. The left ventricular ejection fraction is 30 %. Pulmonary artery systolic pressure is 67 mmHg. Moderate pulmonary hypertension. Ordering Physician: Arline Cruz Referring Physician: Germania Penn Performed By: Stefanie Ramsey RDCS
[2023-06-22] MEDS: Pravastatin 20 MG Tablet PO (16:51)
[2023-06-22] MEDS: Tamsulosin HCl 0.4 MG Capsule 0.400000000000000022 MG PO (16:51)
[2023-06-22] MEDS: Multivitamin (Healthy Eyes) Capsule 1 CAP PO (16:51)
[2023-06-22] MEDS: 0.9% Saline Lock 10 ML Syringe IV ×2 (21:49→22:56)
[2023-06-22] MEDS: Haloperidol Lactate 5 MG/ML Vial 2.5 MG IV ×2 (21:49→22:31)
--- NOTE | 2023-06-22 22:18 | NURSING ---
Addendum entered by Azucena Berry 06/23/23 01:34: 06/22; 0030. RN attempted to call pt's son Jacques, unable to reach. Called Alok, and able to talk to him and notified about pt's current increased confusion at this time and refusing oxygen even with obvious difficulty of breathing. Alok talked to pt on the phone. 0045 RN able to convice pt to wear NC at this time . Original Note: pt wanted to urinate, this RN tried to help pt w/ urinal, pt refused. Pt requested to go to the bathroom, RN attempted to help pt up w/ a walker pt very weak and had difficulty getting up. Pt taking o2 canula off and refusing to get back in bed. Pt very confused, oriented to himself, refused to answer questions. Pt moved to a new room close to nursing station. Pt became combative, trying to hit staffs. CODE VIOLENT CALLED. MD at bedside, and haldol IV ordered and given. Staff at bedside at this time to sit with pt.
--- NOTE | 2023-06-22 22:24 | PCM.HOSP.N ---
Hospitalist Note Patient with severe agitation and confusion with violent behavior. From discussion suspect that this may be a chronic component and likely worsened at night. Administered Haldol with eventual improvement. Will have low-dose as needed Haldol for severe agitation but will initiate low-dose Seroquel to assist in future.
[2023-06-22] MEDS: Haloperidol Lactate 5 MG/ML Vial 2 MG IV (22:55)
[2023-06-23] VITALS (8 sets, daily range): BP systolic 111–153; BP diastolic 76–91; PULSE 88–98; RESP 17–20; TEMP 36.5–36.9; O2SAT 85–99
[2023-06-23] MEDS: HYDROmorphone 2 MG TABLET 4 MG PO ×3 (00:48→17:14)
[2023-06-23 06:02] LABS: Absolute Lymphocyte Count 0.99 X10^3/uL (0.83-4.51); Basophil# 0.06 X10^3/uL; Basophil% 0.7 % (0-1); Eosinophil# 0.19 X10^3/uL; Eosinophils% 2.1 % (0-5); Hematocrit 31.2 % (40-54); Hemoglobin 9.4 g/dL (13.0-16.5); Lymphocyte # 0.99 X10^3/ul (0.83-4.51); Lymphocyte % 11.1 % (19-41); Mean Corp Hgb Conc 30.1 g/dL (32-36); Mean Corpuscular Hgb 28.1 pg (27.0-32.0); Mean Corpuscular Volume 93.4 fL (80-94); Mean Platelet Vol. 10.8 fl (6.2-12.0); Monocyte# 0.67 X10^3/uL; Monocyte% 7.5 % (0-10); NRBC Flagged by Analyzer 0 % (0-5); Neutrophil # 6.96 X10^3/uL (2.7-7.7); Neutrophil % 78.2 % (47-70); Platelet Count 218 K/mm3 (150-450); RBC Distribution Width CV 15.3 % (11.6-14.6); RBC Distribution Width SD 52.9 fl (35.1-43.9); Red Blood Count 3.34 M/mm3 (4.6-6.2); White Blood Count 8.9 K/mm3 (4.4-11.0)
[2023-06-23] MEDS: Haloperidol Lactate 5 MG/ML Vial 2 MG IV ×2 (06:47→19:35)
--- NOTE | 2023-06-23 07:35 | NURSING ---
update given to pt's son Alok at this time. Alok will come in today to see pt.
[2023-06-23 09:27] LABS: Troponin-I HS 88 pg/mL (3.0-78.0)
[2023-06-23] MEDS: amLODIPine 5 MG Tablet PO (09:43)
[2023-06-23] MEDS: Aspirin E.C. 81 MG Tablet PO (09:44)
[2023-06-23] MEDS: guaiFENesin 600 MG Tablet PO ×2 (09:45→22:00)
[2023-06-23] MEDS: Loratadine 10 MG Tablet PO (09:45)
--- NOTE | 2023-06-23 09:45 | PN_ITS ---
Subjective Subjective Patient seen and examined. He complained of chest pressure. He was agitated overnight and had to have a sitter. He is more relaxed today. He feels his shortness of breath is the same. Review of systems is otherwise negative. Objective Data Objective Data Vital Signs: Vital Signs Temp Pulse Resp BP Pulse Ox O2 Del Method O2 Flow Rate 98.5 F 93 18 111/91 H 92 Room Air 2 06/23/23 06:07 06/23/23 06:07 06/23/23 06:07 06/23/23 06:07 06/23/23 07:37 06/23/23 07:37 06/23/23 06:08 Oxygen Flow Rate (L/min) 2 Oxygen Delivery Method Room Air Weight: 243 lb 9.773 oz Body Mass Index (BMI) 36.9 Intake & Output: Intake and Output for Last 24 Hours 06/21/23 06/22/23 06/23/23 23:59 23:59 23:59 Intake Total 480 / 480 100 / 100 Output Total 3100 / 3100 0 / 0 Balance -2620 / -2620 100 / 100 Lab / Micro Data 06/23/23 04:59 06/22/23 08:40 Labs: Laboratory Results - last 24 hr 06/23/23 04:59: WBC 8.9, RBC 3.34 L, Hgb 9.4 L, Hct 31.2 L, MCV 93.4, MCH 28.1, MCHC 30.1 L, RDW Std Deviation 52.9 H, RDW Coeff of Colleen 15.3 H, Plt Count 218, MPV 10.8, Immature Gran % (Auto) 0.400, Neut % (Auto) 78.2 H, Lymph % (Auto) 11.1 L, [place] % (Auto) 7.5, Eos % (Auto) 2.1, Baso % (Auto) 0.7, Absolute Neuts (auto) 7.0, Absolute Lymphs (auto) 0.99, Nucleated RBC % 0 06/23/23 09:01: Troponin I High Sens 88 H Radiography Diagnostic Testing: Radiology Impression Echocardiogram 06/22/23 12:53 Interpretation Summary There is mild global hypokinesis of the left ventricle. Normal LV size. The left ventricular ejection fraction is 30 %. Pulmonary artery systolic pressure is 67 mmHg. Moderate pulmonary hypertension. Ordering Physician: Arline Cruz Referring Physician: Germania Penn Performed By: Stefanie Ramsey RDCS Rhythm Strip Rhythm Strip: Sinus Rhythm Rate: 95 Ectopy: PVC(s) Physical Exam Const alert, oriented x3 and no apparent distress General Appearance: cooperative HEENT normocephalic, head/scalp atraumatic, moist oral mucous membranes and oropharynx normal Eyes PERRL and EOMs intact bilaterally Neck no lymphadenopathy and supple Lymph Lymphatic: no lymphadenopathy noted and no lymphedema noted Resp Resp Narrative: moderately diminished breath sounds bilaterally, mild wheezing, no crackles. Cardio regular rate, regular rhythm, S1 normal heart sound, S2 normal heart sound and no murmurs GI normal to inspection, nondistended, normoactive bowel sounds, soft to palpation, non-tender and non-distended Extremity normal capillary refill Extremity Narrative: bilateral 1+ lower extremity edema. Stasis dermatitis. AV fisutla in LUE with good thrill General Extremity: no tenderness to palpation of joints or extremities Skin Skin Narrative: stasis dermatitis on lower extremities Neuro CN's II-XII intact bilaterally and no focal motor deficits Motor Exam: general weakness Psych thought process normal and cooperative Appearance: appropriate Assessment & Plan Assessment/Plan (1) Cardiomyopathy: (2) End stage chronic kidney disease: (3) Hypoxia: PLAN: Plan #Fluid overload in the setting of cardiomyopathy and ESRD * he did have another session of dialysis on admission yesterday. * on 2L of oxygen. * Chest x-ray showed evidence of fluid overload. * Had 2D echo in September 2021 which showed EF of 20%. Repeat 2D echo done showed EF of 30% with mild global hypokinesis of the left ventricle and pulmonary artery systolic pressure of 6 mmHg. indicating moderate pulmonary hypertension. * I think his pulmonary hypertension is contributing to his persistent shortness of breath. * His EF seems to have improved though his pulmonary hypertension persists. * Titrate oxygen to saturation above 90%. Breathing treatments bronchodilators. * #Chest pain * he completed of chest pain today, and said he had chest pressure. * initial troponin was 84 on admission; in light of the ESRD, his troponins wont be very accurate. * discussed wth Dr Oswald, will get a stress test today * consult cardiology * 2D echo as above. #ESRD on hemodialysis. Currently in fluid overload as above. #Hyperlipidemia: On statin #Hypothyroidism: On Synthroid # History of CAD: On aspirin and Plavix as well as statin. #Chronic back pain: On hydromorphone tablet 4 mg every 4 as needed. P.o. Tylenol as needed. #DVT prophylaxis: Heparin CODE STATUS: DNR CCA no intubation * Charges/Coding Visit Charges Inpatient E&M: 07577 Subs Hosp L2
[2023-06-23] MEDS: Multivitamin (Healthy Eyes) Capsule 1 CAP PO ×2 (09:49→17:15)
[2023-06-23 11:16] LABS: Anion Gap 8 (5-15); BUN 44 mg/dL (7-18); BUN/Creat Ratio 8.5 RATIO (10-20); Calcium,Total 10.1 mg/dL (8.5-10.1); Chloride 103 mmol/L (98-107); Creatinine, Serum 5.19 mg/dL (0.70-1.30); EST Glomerular Filtration Rate 11 mL/min (>60); Est Glom Filt Rate - Afr Amer 14 mL/min (>60); Estimated Creatinine Clearance 12.77 ml/min; Glucose 162 mg/dL (74-106); Sodium Level 137 mmol/L (136-145)
--- NOTE | 2023-06-23 11:16 | CASEMGMT ---
Addendum entered by Yessenia Pardo 06/23/23 14:43: Social Work Pt's son said pt's bibs (ada overallbassam) are missing. SW called the ED and security, they have not been found. Security is to call SW back. SW let son know. ROB Hernandez Original Note: Social Work SW spoke w/pt, son Alok in room as well as pt's brother. Alok confirms pt is here from [facility] and would like pt to return if possible. It is anticipated pt will be here through the weekend as he needs a stress test Sunday. Son states he has a [place] health care facility list that was emailed to him last time pt was here if needed. TANO explained we will follow up w/Maureen Sunday to see if pt is able to return. TANO will continue to follow. ROB Hernandez
--- NOTE | 2023-06-23 11:22 | CASEMGMT ---
Social Work SW spoke w/son Alok in room, he confirms he is pt's POA for healthcare. SW asked him to bring in the document, he states he does not know where it is but they have been completed. ROB Hernandez
[2023-06-23] MEDS: Finasteride 5 MG Tablet PO (13:06)
[2023-06-23] MEDS: Multivitamins,Ther W-Minerals Tablet 1 TABLET PO (13:06)
[2023-06-23] MEDS: Acetaminophen 325 MG Tablet 650 MG PO ×2 (13:06→21:59)
[2023-06-23] MEDS: Clopidogrel Bisulfate 75 MG Tablet PO (13:06)
[2023-06-23] MEDS: Pantoprazole Sodium 40 MG Tablet PO (13:06)
[2023-06-23] MEDS: Heparin Injection (Vial) 5,000 UNIT/ML VIAL 5000 UNIT SC ×2 (13:07→21:59)
[2023-06-23] MEDS: Tamsulosin HCl 0.4 MG Capsule 0.400000000000000022 MG PO (17:16)
[2023-06-23] MEDS: Pravastatin 20 MG Tablet PO (17:17)
[2023-06-23] MEDS: Ipratropium/Albuterol Sulfate 3 ML AMPUL.NEB INHALATION (17:57)
--- NOTE | 2023-06-23 19:13 | PCM.PN.REN ---
Subjective Subjective Following for ESRD. The patient feels better than yesterday. However, the patient still has dyspnea at rest with wheezing. There is no chest pain or nausea. Objective Data Objective Data Vital Signs: Vital Signs Temp Pulse Resp BP Pulse Ox O2 Del Method O2 Flow Rate 97.7 F L 88 20 H 133/78 H 98 Nasal Cannula 2 06/23/23 15:00 06/23/23 17:57 06/23/23 17:57 06/23/23 15:00 06/23/23 17:57 06/23/23 17:57 06/23/23 17:57 Oxygen Flow Rate (L/min) 2 Oxygen Delivery Method Nasal Cannula Weight: 110.5 kg Body Mass Index (BMI) 36.9 Intake & Output: Intake and Output for Last 24 Hours 06/21/23 06/22/23 06/23/23 23:59 23:59 23:59 Intake Total 480 / 480 900 / 900 Output Total 3100 / 3100 100 / 100 Balance -2620 / -2620 800 / 800 Lab / Micro Data 06/23/23 04:59 06/23/23 10:30 Labs: Laboratory Results - last 24 hr 06/23/23 04:59: WBC 8.9, RBC 3.34 L, Hgb 9.4 L, Hct 31.2 L, MCV 93.4, MCH 28.1, MCHC 30.1 L, RDW Std Deviation 52.9 H, RDW Coeff of [place]leen 15.3 H, Plt Count 218, MPV 10.8, Immature Gran % (Auto) 0.400, Neut % (Auto) 78.2 H, Lymph % (Auto) 11.1 L, [place] % (Auto) 7.5, Eos % (Auto) 2.1, Baso % (Auto) 0.7, Absolute Neuts (auto) 7.0, Absolute Lymphs (auto) 0.99, Nucleated RBC % 0 06/23/23 09:01: Troponin I High Sens 88 H 06/23/23 10:30: Sodium 137, Potassium 4.0, Chloride 103, Carbon Dioxide 26.0, Anion Gap 8, BUN 44 H, Creatinine 5.19 H, Estim Creat Clear Calc 12.77, Est GFR (MDRD) Af Amer 14 L, Est GFR (MDRD) Non-Af 11 L, BUN/Creatinine Ratio 8.5 L, Glucose 162 H, Calcium 10.1 Rhythm Strip Rhythm Strip: Sinus Rhythm Rate: 95 Ectopy: PVC(s) Physical Exam Narrative Alert awake oriented x 3 no obvious distress no pallor no icterus no JVD s1s2 no murmurs Diffuse expiratory wheezing on auscultation of the lungs abdomen soft no organomegaly There is 2+ edema of the lower extremities bilaterally no cyanosis Assessment & Plan Assessment/Plan (1) End stage chronic kidney disease: PLAN: Plan Impression/Plan: The patient is a 82-year-old man with ESRD, hypertension, CAD, HFrEF, pulmonary hypertension, hyperlipidemia, GERD, and hypothyroidism. Patient presented to hospital on 06/22/2023 with chest pain and dyspnea. The patient is being treated for acute hypoxic respiratory failure attributed to heart failure exacerbation and volume overload. Nephrology is following for ESRD and dialysis management. ESRD. Patient dialyzes on MWF schedule at formerly [facility]. His outpatient pe teacher is Dr. Laura. The patient completed dialysis yesterday inpatient. No need for dialysis today. Next dialysis will be on 06/25/2023. However, I will reevaluate the patient tomorrow for any urgent need for dialysis. Acute on chronic hypoxic respiratory failure. Respiratory failure is likely due to volume overload in the setting of HFrEF. The patient also has pulm hypertension. Continue to keep O>I with ultrafiltration during hemodialysis.
[2023-06-23] MEDS: 0.9% Saline Lock 10 ML Syringe IV (19:36)
[2023-06-23] MEDS: busPIRone 5 MG Tablet PO (22:00)
[2023-06-23] MEDS: Montelukast 10 MG Tablet PO (22:00)
[2023-06-23] MEDS: QUEtiapine 25 MG Tablet PO (22:00)
[2023-06-24 02:26] VITALS: BP 166/85; PULSE 97; RESP 18; TEMP 36.6; O2SAT 96
[2023-06-24] MEDS: busPIRone 5 MG Tablet PO ×2 (06:20→21:42)
[2023-06-24] MEDS: Acetaminophen 325 MG Tablet 650 MG PO ×3 (06:20→21:43)
[2023-06-24] MEDS: Levothyroxine 50 MCG Tablet PO (06:20)
[2023-06-24] MEDS: Heparin Injection (Vial) 5,000 UNIT/ML VIAL 5000 UNIT SC ×3 (06:20→21:42)
[2023-06-24 06:22] LABS: Absolute Lymphocyte Count 1.22 X10^3/uL (0.83-4.51); Absolute Neutrophil Count 6.4 X10^3/uL (2.0-7.7); Basophil# 0.06 X10^3/uL; Basophil% 0.7 % (0-1); Eosinophil# 0.32 X10^3/uL; Eosinophils% 3.6 % (0-5); Hematocrit 31.2 % (40-54); Hemoglobin 9.5 g/dL (13.0-16.5); Lymphocyte # 1.22 X10^3/ul (0.83-4.51); Lymphocyte % 13.7 % (19-41); Mean Corp Hgb Conc 30.4 g/dL (32-36); Mean Corpuscular Hgb 28.3 pg (27.0-32.0); Mean Corpuscular Volume 92.9 fL (80-94); Mean Platelet Vol. 10.7 fl (6.2-12.0); Monocyte# 0.85 X10^3/uL; Monocyte% 9.6 % (0-10); NRBC Flagged by Analyzer 0 % (0-5); Neutrophil # 6.39 X10^3/uL (2.7-7.7); Neutrophil % 71.9 % (47-70); Platelet Count 230 K/mm3 (150-450); RBC Distribution Width CV 15.2 % (11.6-14.6); RBC Distribution Width SD 52.1 fl (35.1-43.9); Red Blood Count 3.36 M/mm3 (4.6-6.2); White Blood Count 8.9 K/mm3 (4.4-11.0)
[2023-06-24 07:26] VITALS: O2SAT 97
[2023-06-24 08:17] VITALS: BP 139/87; PULSE 88; RESP 18; TEMP 36.2; O2SAT 95
[2023-06-24] MEDS: HYDROmorphone 2 MG TABLET 4 MG PO ×3 (08:23→22:23)
[2023-06-24] MEDS: Aspirin E.C. 81 MG Tablet PO (08:25)
[2023-06-24] MEDS: Multivitamin (Healthy Eyes) Capsule 1 CAP PO ×2 (08:25→15:53)
[2023-06-24] MEDS: amLODIPine 5 MG Tablet PO (08:25)
[2023-06-24] MEDS: guaiFENesin 600 MG Tablet PO ×2 (08:25→21:43)
[2023-06-24] MEDS: Multivitamins,Ther W-Minerals Tablet 1 TABLET PO (08:26)
--- NOTE | 2023-06-24 08:54 | EKG12_ITS ---
Test Reason : STRESS TEST Blood Pressure : / mmHG Vent. Rate : 091 BPM Atrial Rate : 091 BPM P-R Int : 212 ms QRS Dur : 122 ms QT Int : 394 ms P-R-T Axes : 000 -17 155 degrees QTc Int : 484 ms Sinus rhythm with 1st degree A-V block with Premature supraventricular complexes Left bundle branch block Abnormal ECG When compared with ECG of 24-JUN-2023 09:35, MANUAL COMPARISON REQUIRED, DATA IS UNCONFIRMED Confirmed by CARLITOS HOWE, AYAZ ([id number]), editor house organ AMENA OLIVER ([id number]) on 06/25/2023 1:02:22 PM Referred By: Confirmed By:AYAZ URBINA MD
--- NOTE | 2023-06-24 10:44 | PN_ITS ---
Subjective Subjective Patient seen and examined. He still complains of shortness of breath. He tolerate the stress test yesterday. He will have repeat stress test tomorrow. Objective Data Objective Data Vital Signs: Vital Signs Temp Pulse Resp BP Pulse Ox O2 Del Method O2 Flow Rate 97.2 F L 88 18 139/87 H 95 Nasal Cannula 2 06/24/23 08:17 06/24/23 08:17 06/24/23 08:17 06/24/23 08:17 06/24/23 08:17 06/24/23 09:45 06/24/23 09:45 Oxygen Flow Rate (L/min) 2 Oxygen Delivery Method Nasal Cannula Weight: 243 lb 9.773 oz Body Mass Index (BMI) 36.9 Intake & Output: Intake and Output for Last 24 Hours 06/22/23 06/23/23 06/24/23 23:59 23:59 23:59 Intake Total 480 / 480 900 / 900 Output Total 3100 / 3100 100 / 100 Balance -2620 / -2620 800 / 800 Lab / Micro Data 06/24/23 05:25 06/23/23 10:30 Labs: Laboratory Results - last 24 hr 06/23/23 10:30: Sodium 137, Potassium 4.0, Chloride 103, Carbon Dioxide 26.0, Anion Gap 8, BUN 44 H, Creatinine 5.19 H, Estim Creat Clear Calc 12.77, Est GFR (MDRD) Af Amer 14 L, Est GFR (MDRD) Non-Af 11 L, BUN/Creatinine Ratio 8.5 L, Glucose 162 H, Calcium 10.1 06/24/23 05:25: WBC 8.9, RBC 3.36 L, Hgb 9.5 L, Hct 31.2 L, MCV 92.9, MCH 28.3, MCHC 30.4 L, RDW Std Deviation 52.1 H, RDW Coeff of [place]leen 15.2 H, Plt Count 230, MPV 10.7, Immature Gran % (Auto) 0.500, Neut % (Auto) 71.9 H, Lymph % (Auto) 13.7 L, [place] % (Auto) 9.6, Eos % (Auto) 3.6, Baso % (Auto) 0.7, Absolute Neuts (auto) 6.4, Absolute Lymphs (auto) 1.22, Nucleated RBC % 0 Rhythm Strip Rhythm Strip: Sinus Rhythm Rate: 95 Ectopy: PVC(s) Physical Exam Const alert, oriented x3 and no apparent distress General Appearance: cooperative and well developed HEENT normocephalic, head/scalp atraumatic, moist oral mucous membranes and oropharynx normal Eyes PERRL and EOMs intact bilaterally Neck no lymphadenopathy and supple Lymph Lymphatic: no lymphadenopathy noted and no lymphedema noted Resp Resp Narrative: moderately diminished breath sounds bilaterally, mild wheezing, no crackles. on 2L of oxygen. Cardio regular rate, regular rhythm, S1 normal heart sound, S2 normal heart sound and no murmurs GI normal to inspection, nondistended, normoactive bowel sounds, soft to palpation, non-tender and non-distended Extremity normal capillary refill Extremity Narrative: bilateral 1+ lower extremity edema. AV fistula in LUE with good thrill General Extremity: no tenderness to palpation of joints or extremities Skin Skin Narrative: stasis dermatitis on lower extremities Neuro CN's II-XII intact bilaterally and no focal motor deficits Motor Exam: general weakness Psych thought process normal and cooperative Appearance: appropriate Assessment & Plan Assessment/Plan (1) Cardiomyopathy: (2) End stage chronic kidney disease: (3) Hypoxia: PLAN: Plan #Fluid overload in the setting of cardiomyopathy and ESRD * he did have another session of dialysis on admission. * on 2L of oxygen. * Chest x-ray showed evidence of fluid overload. * Had 2D echo in September 2021 which showed EF of 20%. Repeat 2D echo done showed EF of 30% with mild global hypokinesis of the left ventricle and pulmonary artery systolic pressure of 6 mmHg. indicating moderate pulmonary hypertension. * I think his pulmonary hypertension is contributing to his persistent shortness of breath. * His EF seems to have improved though his pulmonary hypertension persists. * Titrate oxygen to saturation above 90%. Breathing treatments with bro nchodilators. * #Chest pain * he completed of chest pain today, and said he had chest pressure. * initial troponin was 84 on admission; in light of the ESRD, his troponins won't be very accurate. * discussed with Dr Oswald * could not have stress test yesterday as he could not tolerate it. To have stress test tomorrow. * 2D echo as above. #ESRD on hemodialysis. Currently in fluid overload as above. #Hyperlipidemia: On statin #Hypothyroidism: On Synthroid # History of CAD: On aspirin and Plavix as well as statin. #Chronic back pain: On hydromorphone tablet 4 mg every 4 as needed. P.o. Tylen ol as needed. #DVT prophylaxis: Heparin CODE STATUS: DNR CCA no intubation * Charges/Coding Visit Charges Inpatient E&M: 34068 Subs Hosp L2
[2023-06-24] MEDS: Finasteride 5 MG Tablet PO (13:21)
[2023-06-24] MEDS: Pantoprazole Sodium 40 MG Tablet PO (13:21)
[2023-06-24] MEDS: Clopidogrel Bisulfate 75 MG Tablet PO (13:21)
[2023-06-24 15:00] VITALS: BP 134/79; PULSE 80; RESP 18; TEMP 36.3; O2SAT 95
[2023-06-24] MEDS: Tamsulosin HCl 0.4 MG Capsule 0.400000000000000022 MG PO (15:53)
[2023-06-24] MEDS: Pravastatin 20 MG Tablet PO (15:53)
--- NOTE | 2023-06-24 17:03 | PCM.PN.REN ---
Subjective Subjective Following for ESRD. The patient feels better today. He is less short of breath but not yet back to usual baseline. Lower extreme edema has not increased. Objective Data Objective Data Vital Signs: Vital Signs Temp Pulse Resp BP Pulse Ox O2 Del Method O2 Flow Rate 97.4 F L 80 18 134/79 H 95 Nasal Cannula 2 06/24/23 15:00 06/24/23 15:00 06/24/23 15:00 06/24/23 15:00 06/24/23 15:00 06/24/23 15:00 06/24/23 15:00 Oxygen Flow Rate (L/min) 2 Oxygen Delivery Method Nasal Cannula Weight: 110.5 kg Body Mass Index (BMI) 36.9 Intake & Output: Intake and Output for Last 24 Hours 06/22/23 06/23/23 06/24/23 23:59 23:59 23:59 Intake Total 480 / 480 900 / 900 400 / 400 Output Total 3100 / 3100 100 / 100 100 / 100 Balance -2620 / -2620 800 / 800 300 / 300 Lab / Micro Data 06/24/23 05:25 06/23/23 10:30 Labs: Laboratory Results - last 24 hr 06/24/23 05:25: WBC 8.9, RBC 3.36 L, Hgb 9.5 L, Hct 31.2 L, MCV 92.9, MCH 28.3, MCHC 30.4 L, RDW Std Deviation 52.1 H, RDW Coeff of Colleen 15.2 H, Plt Count 230, MPV 10.7, Immature Gran % (Auto) 0.500, Neut % (Auto) 71.9 H, Lymph % (Auto) 13.7 L, [place] % (Auto) 9.6, Eos % (Auto) 3.6, Baso % (Auto) 0.7, Absolute Neuts (auto) 6.4, Absolute Lymphs (auto) 1.22, Nucleated RBC % 0 Rhythm Strip Rhythm Strip: Sinus Rhythm Rate: 95 Ectopy: PVC(s) Physical Exam Narrative Alert awake oriented x 3 no obvious distress no pallor no icterus no JVD s1s2 no murmurs Diffuse expiratory wheezing on auscultation of the lungs abdomen soft no organomegaly There is 2+ edema of the lower extremities bilaterally no cyanosis Assessment & Plan Assessment/Plan (1) End stage chronic kidney disease: PLAN: Plan Impression/Plan: The patient is a 82-year-old man with ESRD, hypertension, CAD, HFrEF, pulmonary hypertension, hyperlipidemia, GERD, and hypothyroidism. Patient presented to hospital on 06/22/2023 with chest pain and dyspnea. The patient is being treated for acute hypoxic respiratory failure attributed to heart failure exacerbation and volume overload. Nephrology is following for ESRD and dialysis management. ESRD. Patient dialyzes on MWF schedule at [facility]. His outpatient commodity trader is Dr. Laura. The patient completed dialysis yesterday as inpatient. No need for urgent dialysis today. Next dialysis will be on 06/25/2023. Acute on chronic hypoxic respiratory failure. Respiratory failure is likely due to volume overload in the setting of HFrEF. The patient also has pulm hypertension. Continue to keep O>I with ultrafiltration during hemodialysis.
[2023-06-24] MEDS: Polyethylene Glycol 3350 17 GM PACKET PO ×2 (18:29→22:08)
[2023-06-24 21:38] VITALS: BP 144/87; PULSE 95; RESP 18; TEMP 36.5; O2SAT 96
[2023-06-24] MEDS: QUEtiapine 25 MG Tablet PO (21:43)
[2023-06-24] MEDS: Montelukast 10 MG Tablet PO (21:43)
[2023-06-24] MEDS: 0.9% Saline Lock 10 ML Syringe IV (22:24)
[2023-06-24] MEDS: Haloperidol Lactate 5 MG/ML Vial 2 MG IV (22:26)
[2023-06-25] VITALS (16 sets, daily range): BP systolic 107–290; BP diastolic 56–116; PULSE 87–106; RESP 18–25; TEMP 36.6–36.7; O2SAT 93–99; BMI 36.9; BMI 35.7
[2023-06-25] MEDS: QUEtiapine 25 MG Tablet PO ×2 (02:21→22:07)
--- NOTE | 2023-06-25 05:00 | EKG12_ITS ---
Test Reason : Blood Pressure : / mmHG Vent. Rate : 075 BPM Atrial Rate : 075 BPM P-R Int : 206 ms QRS Dur : 126 ms QT Int : 422 ms P-R-T Axes : 042 -16 159 degrees QTc Int : 471 ms Sinus rhythm with Premature atrial complexes Left ventricular hypertrophy with QRS widening and repolarization abnormality ( Mahin product ) Abnormal ECG When compared with ECG of 22-JUN-2023 08:20, MANUAL COMPARISON REQUIRED, DATA IS UNCONFIRMED Confirmed by CARLITOS HOWE, AYAZ ([id number]), assistant film editor AMENA OLIVER ([id number]) on 06/25/2023 1:03:11 PM Referred By: VANESSA Confirmed By:AYAZ URBINA MD
[2023-06-25] MEDS: Levothyroxine 50 MCG Tablet PO (05:32)
[2023-06-25] MEDS: busPIRone 5 MG Tablet PO ×2 (05:32→22:07)
[2023-06-25] MEDS: Acetaminophen 325 MG Tablet 650 MG PO ×3 (05:33→22:06)
[2023-06-25] MEDS: Aspirin E.C. 81 MG Tablet PO (05:34)
[2023-06-25] MEDS: Clopidogrel Bisulfate 75 MG Tablet PO (05:34)
[2023-06-25 05:51] LABS: Absolute Lymphocyte Count 1.28 X10^3/uL (0.83-4.51); Absolute Neutrophil Count 6.4 X10^3/uL (2.0-7.7); Basophil# 0.06 X10^3/uL; Basophil% 0.7 % (0-1); Eosinophil# 0.44 X10^3/uL; Eosinophils% 4.9 % (0-5); Hematocrit 30.6 % (40-54); Hemoglobin 9.4 g/dL (13.0-16.5); Lymphocyte # 1.28 X10^3/ul (0.83-4.51); Lymphocyte % 14.4 % (19-41); Mean Corp Hgb Conc 30.7 g/dL (32-36); Mean Corpuscular Hgb 28.3 pg (27.0-32.0); Mean Corpuscular Volume 92.2 fL (80-94); Mean Platelet Vol. 10.7 fl (6.2-12.0); Monocyte# 0.75 X10^3/uL; Monocyte% 8.4 % (0-10); NRBC Flagged by Analyzer 0 % (0-5); Neutrophil # 6.35 X10^3/uL (2.7-7.7); Neutrophil % 71.3 % (47-70); Platelet Count 212 K/mm3 (150-450); RBC Distribution Width SD 50.6 fl (35.1-43.9); Red Blood Count 3.32 M/mm3 (4.6-6.2); White Blood Count 8.9 K/mm3 (4.4-11.0)
[2023-06-25] MEDS: 0.9% Saline Lock 10 ML Syringe IV ×3 (07:02→14:25)
[2023-06-25] MEDS: Haloperidol Lactate 5 MG/ML Vial 2 MG IV (07:02)
[2023-06-25 08:06] LABS: Anion Gap 8 (5-15); BUN 66 mg/dL (7-18); BUN/Creat Ratio 9.7 RATIO (10-20); Chloride 102 mmol/L (98-107); Creatinine, Serum 6.83 mg/dL (0.70-1.30); EST Glomerular Filtration Rate 8 mL/min (>60); Est Glom Filt Rate - Afr Amer 10 mL/min (>60); Estimated Creatinine Clearance 9.71 ml/min; Glucose 152 mg/dL (74-106); Potassium 4.4 mmol/L (3.5-5.1); Sodium Level 136 mmol/L (136-145)
[2023-06-25] MEDS: LORazepam 2 MG/ML Syringe 1 MG IV ×2 (08:17→14:23)
--- NOTE | 2023-06-25 08:20 | NURSING ---
Pt agressive, unable to scan pt wrist band. V# entered manually.
--- NOTE | 2023-06-25 08:30 | NURSING ---
Pt up to chair, tearing off O2, tele. Pt combative and refusing all care from staff. 4 staff members in room. Security also in room to assist in keeping pt from injuring himself. Order obtained for restraints. Pt assisted back to bed w/ multiple staff assist. Restraints applied. Pt now resting comfortably.
--- NOTE | 2023-06-25 09:18 | NURSING ---
Pt son Alok contacted to update pt combative, tearing off O2, tele this AM. Pt given PRN for agitation but ineffective. Pt placed in wrist restraints and given another PRN. Pt resting comfortably in bed. Pt will be monitored according to restraint protocol.
[2023-06-25] MEDS: 0.9% Normal Saline 1,000 ML IV.SOLN. 1000 ML OPERA.SITE (11:39)
[2023-06-25] MEDS: PureFlow B 2K Dialysis Soln 1 BAG 6 BAG PF (11:39)
--- NOTE | 2023-06-25 11:58 | CASEMGMT ---
TANO returned patient's son Alok's phone call. Alok is concerned patient will not be able to go back to [facility]. Alok asked if a referral could be made to [facility] in [place]. Alok said he called there and they have availability. TANO asked Stephanie to please send a referral to [facility]. Anita Brito LOG YARD MANAGER SURAJ
[2023-06-25] MEDS: Fluticasone 0.05% 1 SPRAY NASAL.SRY NASAL (12:12)
--- NOTE | 2023-06-25 12:14 | CASEMGMT ---
Discharge Planning Referral sent via [facility] to [facility]. Stephanie Solo, Discharge Planning Asst.
[2023-06-25] MEDS: Multivitamins,Ther W-Minerals Tablet 1 TABLET PO (12:15)
[2023-06-25] MEDS: Finasteride 5 MG Tablet PO (12:15)
[2023-06-25] MEDS: Pantoprazole Sodium 40 MG Tablet PO (12:15)
--- NOTE | 2023-06-25 12:56 | PN.RENAL_ITS ---
Subjective Subjective no new events Objective Data Objective Data Vital Signs: Vital Signs Temp Pulse Resp BP Pulse Ox O2 Del Method O2 Flow Rate 97.9 F 104 H 20 H 138/114 H 96 Nasal Cannula 3 06/25/23 08:30 06/25/23 12:31 06/25/23 12:31 06/25/23 12:31 06/25/23 12:31 06/25/23 12:31 06/25/23 12:31 Oxygen Flow Rate (L/min) 3 Oxygen Delivery Method Nasal Cannula Weight: 110.5 kg Body Mass Index (BMI) 36.9 Intake & Output: Intake and Output for Last 24 Hours 06/23/23 06/24/23 06/25/23 23:59 23:59 23:59 Intake Total 900 / 900 1360 / 1360 110 / 110 Output Total 100 / 100 100 / 100 Balance 800 / 800 1260 / 1260 110 / 110 Lab / Micro Data 06/25/23 05:40 06/25/23 05:40 Labs: Laboratory Results - last 24 hr 06/25/23 05:40: WBC 8.9, RBC 3.32 L, Hgb 9.4 L, Hct 30.6 L, MCV 92.2, MCH 28.3, MCHC 30.7 L, RDW Std Deviation 50.6 H, RDW Coeff of Colleen 15.0 H, Plt Count 212, MPV 10.7, Immature Gran % (Auto) 0.300, Neut % (Auto) 71.3 H, Lymph % (Auto) 14.4 L, [place] % (Auto) 8.4, Eos % (Auto) 4.9, Baso % (Auto) 0.7, Absolute Neuts (auto) 6.4, Absolute Lymphs (auto) 1.28, Nucleated RBC % 0, Sodium 136, Potassium 4.4, Chloride 102, Carbon Dioxide 26.0, Anion Gap 8, BUN 66 H, Creatinine 6.83 H, Estim Creat Clear Calc 9.71, Est GFR (MDRD) Af Amer 10 L, Est GFR (MDRD) Non-Af 8 L, BUN/Creatinine Ratio 9.7 L, Glucose 152 H, Calcium 10.0 Rhythm Strip Rhythm Strip: Sinus Rhythm Rate: 95 Ectopy: PVC(s) Physical Exam Narrative Alert awake oriented x 3 no obvious distress no pallor no icterus no JVD s1s2 no murmurs Diffuse expiratory wheezing on auscultation of the lungs abdomen soft no organomegaly There is 2+ edema of the lower extremities bilaterally no cyanosis Assessment & Plan Assessment/Plan (1) End stage chronic kidney disease: PLAN: Plan Impression/Plan: The patient is a 82-year-old man with ESRD, hypertension, CAD, HFrEF, pulmonary hypertension, hyperlipidemia, GERD, and hypothyroidism. Patient presented to hospital on 06/22/2023 with chest pain and dyspnea. The patient is being treated for acute hypoxic respiratory failure attributed to heart failure exacerbation and volume overload. Nephrology is following for ESRD and dialysis management. ESRD. Patient dialyzes on MWF schedule at [facility]. His outpatient sap bw bi developer is Dr. Laura. HD today Acute on chronic hypoxic respiratory failure. Respiratory failure is likely due to volume overload in the setting of HFrEF. The patient also has pulm hypertension. HD with UF 3-4 L
--- NOTE | 2023-06-25 13:33 | CASEMGMT ---
[facility] accepted patient. They asked for a copy of patient's Hep B Antigen lab. TANO called Joe and requested a copy be faxed to TANO. Plan: [facility] pending patient being medically ready and insurance approving. Anita Brito MANAGER NEWS SURAJ
--- NOTE | 2023-06-25 13:50 | PN_ITS ---
Subjective Subjective Patient seen and examined. He was agitated overnight and required a sitter. He was given haldol and seroquel. He remains agitated this morning and refused physical exam. He has remained hemodynamically stable. Objective Data Objective Data Vital Signs: Vital Signs Temp Pulse Resp BP Pulse Ox O2 Del Method O2 Flow Rate 97.9 F 98 18 114/94 H 98 Nasal Cannula 3 06/25/23 08:30 06/25/23 13:27 06/25/23 13:27 06/25/23 13:27 06/25/23 13:27 06/25/23 13:27 06/25/23 13:27 Oxygen Flow Rate (L/min) 3 Oxygen Delivery Method Nasal Cannula Weight: 243 lb 9.773 oz Body Mass Index (BMI) 36.9 Intake & Output: Intake and Output for Last 24 Hours 06/23/23 06/24/23 06/25/23 23:59 23:59 23:59 Intake Total 900 / 900 1360 / 1360 110 / 110 Output Total 100 / 100 100 / 100 Balance 800 / 800 1260 / 1260 110 / 110 Lab / Micro Data 06/25/23 05:40 06/25/23 05:40 Labs: Laboratory Results - last 24 hr 06/25/23 05:40: WBC 8.9, RBC 3.32 L, Hgb 9.4 L, Hct 30.6 L, MCV 92.2, MCH 28.3, MCHC 30.7 L, RDW Std Deviation 50.6 H, RDW Coeff of Colleen 15.0 H, Plt Count 212, MPV 10.7, Immature Gran % (Auto) 0.300, Neut % (Auto) 71.3 H, Lymph % (Auto) 14.4 L, [place] % (Auto) 8.4, Eos % (Auto) 4.9, Baso % (Auto) 0.7, Absolute Neuts (auto) 6.4, Absolute Lymphs (auto) 1.28, Nucleated RBC % 0, Sodium 136, Potassium 4.4, Chloride 102, Carbon Dioxide 26.0, Anion Gap 8, BUN 66 H, Creatinine 6.83 H, Estim Creat Clear Calc 9.71, Est GFR (MDRD) Af Amer 10 L, Est GFR (MDRD) Non-Af 8 L, BUN/Creatinine Ratio 9.7 L, Glucose 152 H, Calcium 10.0 Rhythm Strip Rhythm Strip: Sinus Rhythm Rate: 95 Ectopy: PVC(s) Physical Exam Const alert, oriented x3 and no apparent distress General Appearance: cooperative and well developed HEENT normocephalic, head/scalp atraumatic, moist oral mucous membranes and oropharynx normal Eyes PERRL and EOMs intact bilaterally Neck no lymphadenopathy and supple Lymph Lymphatic: no lymphadenopathy noted and no lymphedema noted Resp Resp Narrative: moderately diminished breath sounds bilaterally, mild wheezing, no crackles. on 2L of oxygen. Cardio regular rate, regular rhythm, S1 normal heart sound, S2 normal heart sound and no murmurs GI normal to inspection, nondistended, normoactive bowel sounds, soft to palpation, non-tender and non-distended Extremity normal capillary refill Extremity Narrative: bilateral 1+ lower extremity edema. AV fistula in LUE with good thrill General Extremity: no tenderness to palpation of joints or extremities Skin Skin Narrative: stasis dermatitis on lower extremities Neuro CN's II-XII intact bilaterally and no focal motor deficits Motor Exam: general weakness Psych thought process normal and cooperative Appearance: appropriate Assessment & Plan Assessment/Plan (1) Cardiomyopathy: (2) End stage chronic kidney disease: (3) Hypoxia: PLAN: Plan #Fluid overload in the setting of cardiomyopathy and ESRD * he did have another session of dialysis on admission. * on 2L of oxygen. * Chest x-ray showed evidence of fluid overload. * Had 2D echo in September 2021 which showed EF of 20%. Repeat 2D echo done showed EF of 30% with mild global hypokinesis of the left ventricle and pulmonary artery systolic pressure of 6 mmHg. indicating moderate pulmonary hypertension. * I think his pulmonary hypertension is contributing to his persistent shortness of breath. * His EF seems to have improved though his pulmonary hypertension persists. * Titrate oxygen to saturation above 90%. Breathing treatments with bronchodilators. * #Chest pain * chest pain hasn't recurred * couldnt tolerate a stress test on Sunday and today. * 2D echo as above. * cardiology on board. * #Acute encephalopathy with agitation * Patient agitated overnight and today. He was physically aggressive and refusing physical exam today. * Had to put in restraints. On Haldol and Ativan as needed. Also on Seroquel. * I think this is likely due to hospital-acquired delirium. Conservative measures such as keeping the blinds up during the day to simulate in normal day night cycle. On Seroquel as above. * Fall precautions. * #ESRD on hemodialysis. Currently in fluid overload as above. For dialysis [facility] Has dialysis Wednesdays. #Hyperlipidemia: On statin #Hypothyroidism: On Synthroid # History of CAD: On aspirin and Plavix as well as statin. #Chronic back pain: On hydromorphone tablet 4 mg every 4 as needed. P.o. Tylenol as needed. #DVT prophylaxis: Heparin CODE STATUS: DNR CCA no intubation * Charges/Coding Visit Charges Inpatient E&M: 72321 Subs Hosp L3
[2023-06-25] MEDS: Heparin Injection (Vial) 5,000 UNIT/ML VIAL 5000 UNIT SC ×2 (14:19→22:07)
--- NOTE | 2023-06-25 14:49 | CASEMGMT ---
TANO sent dialysis run sheets to [facility] per their request. Anita Brito BLOCK ENGRAVER SURAJ
[2023-06-25] MEDS: Montelukast 10 MG Tablet PO (22:07)
[2023-06-25] MEDS: guaiFENesin 600 MG Tablet PO (22:07)
[2023-06-26] VITALS (10 sets, daily range): BP systolic 116–156; BP diastolic 7–95; PULSE 85–95; RESP 18–20; TEMP 36.6–37; O2SAT 89–98
[2023-06-26] MEDS: Haloperidol Lactate 5 MG/ML Vial 2 MG IV (03:25)
[2023-06-26] MEDS: LORazepam 2 MG/ML Syringe 1 MG IV ×2 (06:04→12:13)
[2023-06-26] MEDS: Acetaminophen 325 MG Tablet 650 MG PO ×3 (06:17→21:50)
[2023-06-26] MEDS: Levothyroxine 50 MCG Tablet PO (06:17)
[2023-06-26] MEDS: Heparin Injection (Vial) 5,000 UNIT/ML VIAL 5000 UNIT SC ×3 (06:18→21:50)
[2023-06-26] MEDS: busPIRone 5 MG Tablet PO ×2 (06:18→21:51)
[2023-06-26 07:54] LABS: Absolute Lymphocyte Count 0.95 X10^3/uL (0.83-4.51); Absolute Neutrophil Count 8.3 X10^3/uL (2.0-7.7); Basophil# 0.07 X10^3/uL; Basophil% 0.7 % (0-1); Eosinophil# 0.21 X10^3/uL; Hematocrit 31.5 % (40-54); Hemoglobin 9.7 g/dL (13.0-16.5); Lymphocyte # 0.95 X10^3/ul (0.83-4.51); Lymphocyte % 9.1 % (19-41); Mean Corp Hgb Conc 30.8 g/dL (32-36); Mean Corpuscular Hgb 28.4 pg (27.0-32.0); Mean Corpuscular Volume 92.4 fL (80-94); Mean Platelet Vol. 11.1 fl (6.2-12.0); Monocyte# 0.86 X10^3/uL; Monocyte% 8.2 % (0-10); NRBC Flagged by Analyzer 0 % (0-5); Neutrophil # 8.32 X10^3/uL (2.7-7.7); Neutrophil % 79.7 % (47-70); Platelet Count 252 K/mm3 (150-450); RBC Distribution Width CV 15.1 % (11.6-14.6); RBC Distribution Width SD 51.5 fl (35.1-43.9); Red Blood Count 3.41 M/mm3 (4.6-6.2); White Blood Count 10.4 K/mm3 (4.4-11.0)
[2023-06-26] MEDS: Ipratropium/Albuterol Sulfate 3 ML AMPUL.NEB INHALATION ×2 (08:28→15:06)
[2023-06-26] MEDS: Multivitamin (Healthy Eyes) Capsule 1 CAP PO ×2 (08:29→18:18)
[2023-06-26] MEDS: guaiFENesin 600 MG Tablet PO ×2 (08:29→21:51)
[2023-06-26] MEDS: amLODIPine 5 MG Tablet PO (08:29)
[2023-06-26] MEDS: QUEtiapine 25 MG Tablet PO ×2 (08:31→21:50)
[2023-06-26 08:40] LABS: Anion Gap 9 (5-15); BUN 54 mg/dL (7-18); BUN/Creat Ratio 8.8 RATIO (10-20); Calcium,Total 9.6 mg/dL (8.5-10.1); Chloride 101 mmol/L (98-107); Creatinine, Serum 6.12 mg/dL (0.70-1.30); EST Glomerular Filtration Rate 9 mL/min (>60); Est Glom Filt Rate - Afr Amer 11 mL/min (>60); Estimated Creatinine Clearance 10.66 ml/min; Glucose 128 mg/dL (74-106); Potassium 4.1 mmol/L (3.5-5.1); Sodium Level 136 mmol/L (136-145)
[2023-06-26 10:29] LABS: Ammonia < 10.0 umol/L (11-32)
[2023-06-26] MEDS: Finasteride 5 MG Tablet PO (11:39)
[2023-06-26] MEDS: Pantoprazole Sodium 40 MG Tablet PO (11:39)
[2023-06-26] MEDS: Multivitamins,Ther W-Minerals Tablet 1 TABLET PO (11:39)
[2023-06-26] MEDS: Fluticasone 0.05% 1 SPRAY NASAL.SRY NASAL (11:39)
[2023-06-26] MEDS: Clopidogrel Bisulfate 75 MG Tablet PO (11:39)
[2023-06-26] MEDS: Aspirin E.C. 81 MG Tablet PO (11:39)
[2023-06-26] MEDS: 0.9% Saline Lock 10 ML Syringe IV (12:13)
--- NOTE | 2023-06-26 12:38 | CASEMGMT ---
TANO sent updates to [facility] and asked that they start pre-cert. Plan: d/c to [facility] pending insurance approval. Anita Brito MSW SURAJ
--- NOTE | 2023-06-26 13:23 | PCM.PROGNOTE ---
Subjective Subjective Patient seen and examined. He is less confused today and restraints have been taken off. He is confused but able to communicate. He has no active complaints. He was noted to have quite a moist cough and on 3L of oxygen. Objective Data Objective Data Vital Signs: Vital Signs Temp Pulse Resp BP Pulse Ox O2 Del Method O2 Flow Rate 98 F 91 20 H 125/78 H 89 Nasal Cannula 3 06/26/23 08:41 06/26/23 08:41 06/26/23 08:41 06/26/23 08:41 06/26/23 11:16 06/26/23 08:41 06/26/23 11:16 Oxygen Flow Rate (L/min) 3 Oxygen Delivery Method Nasal Cannula Weight: 235 lb 14.314 oz Body Mass Index (BMI) 35.7 Intake & Output: Intake and Output for Last 24 Hours 06/24/23 06/25/23 06/26/23 23:59 23:59 23:59 Intake Total 1360 / 1360 230 / 230 420 / 420 Output Total 100 / 100 4000 / 4000 200 / 200 Balance 1260 / 1260 -3770 / -3770 220 / 220 Lab / Micro Data 06/26/23 06:55 06/26/23 06:55 Labs: Laboratory Results - last 24 hr 06/26/23 06:55: WBC 10.4, RBC 3.41 L, Hgb 9.7 L, Hct 31.5 L, MCV 92.4, MCH 28.4, MCHC 30.8 L, RDW Std Deviation 51.5 H, RDW Coeff of Colleen 15.1 H, Plt Count 252, MPV 11.1, Immature Gran % (Auto) 0.300, Neut % (Auto) 79.7 H, Lymph % (Auto) 9.1 L, [place] % (Auto) 8.2, Eos % (Auto) 2.0, Baso % (Auto) 0.7, Absolute Neuts (auto) 8.3 H, Absolute Lymphs (auto) 0.95, Nucleated RBC % 0, Sodium 136, Potassium 4.1, Chloride 101, Carbon Dioxide 26.0, Anion Gap 9, BUN 54 H, Creatinine 6.12 H, Estim Creat Clear Calc 10.66, Est GFR (MDRD) Af Amer 11 L, Est GFR (MDRD) Non-Af 9 L, BUN/Creatinine Ratio 8.8 L, Glucose 128 H, Calcium 9.6 06/26/23 09:55: Ammonia < 10.0 L Rhythm Strip Rhythm Strip: Sinus Rhythm Rate: 95 Ectopy: PVC(s) Physical Exam Const alert, oriented x3 and no apparent distress Constitutional Narrative: in moderate distress due to chronic back pain General Appearance: cooperative and well developed HEENT normocephalic, head/scalp atraumatic, moist oral mucous membranes and oropharynx normal Eyes PERRL and EOMs intact bilaterally Neck no lymphadenopathy and supple Lymph Lymphatic: no lymphadenopathy noted and no lymphedema noted Resp Resp Narrative: moderately diminished breath sounds bilaterally, mild wheezing, no crackles. on 2L of oxygen. Cardio regular rate, regular rhythm, S1 normal heart sound, S2 normal heart sound and no murmurs GI normal to inspection, nondistended, normoactive bowel sounds, soft to palpation, non-tender and non-distended Extremity normal capillary refill Extremity Narrative: bilateral 1+ lower extremity edema. AV fistula in LUE with good thrill General Extremity: no tenderness to palpation of joints or extremities Skin Skin Narrative: stasis dermatitis on lower extremities Neuro CN's II-XII intact bilaterally and no focal motor deficits Motor Exam: general weakness Psych Psych Narrative: confused, restless Assessment & Plan Assessment/Plan (1) Cardiomyopathy: (2) End stage chronic kidney disease: (3) Hypoxia: PLAN: Plan #Fluid overload in the setting of cardiomyopathy and ESRD he did have another session of dialysis on admission. on 2L of oxygen. Chest x-ray showed evidence of fluid overload. Had 2D echo in September 2021 which showed EF of 20%. Repeat 2D echo done showed EF of 30% with mild global hypokinesis of the left ventricle and pulmonary artery systolic pressure of 6 mmHg. indicating moderate pulmonary hypertension. I think his pulmonary hypertension is contributing to his persistent shortness of breath. His EF seems to have improved though his pulmonary hypertension persists. Titrate oxygen to saturation above 90%. Breathing treatments with bronchodilators. for dialysis today #Chest pain chest pain hasn't recurred couldnt tolerate a stress test on Sunday and yesterday chest pain hasnt recurred. I think it is reasonable to cancel the stress test as patient has been quite agitated and this chest pain did not recur after the transient episode. His 2D echo showed mild global hypokinesis of the ventricle with normal in size and EF of 30% with pulmonary artery systolic pressure of 67 mmHg. 2D echo as above. cardiology on board. #Acute encephalopathy with agitation Patient is agitated today. Restraints were taken off this morning. On Seroquel I think this is likely due to hospital-acquired delirium. Conservative measures such as keeping the blinds up during the day to simulate in normal day night cycle. On Seroquel as above. Fall precautions. #ESRD on hemodialysis. Currently in fluid overload as above. For dialysis tomorrow. Has dialysis Wednesdays. Nephrology on board #Hyperlipidemia: On statin #Hypothyroidism: On Synthroid # History of CAD: On aspirin and Plavix as well as statin. #Chronic back pain: On hydromorphone tablet 4 mg every 4 as needed. P.o. Tylenol as needed. #DVT prophylaxis: Heparin CODE STATUS: DNR CCA no intubation Disposition: Awaiting placement. Charges/Coding Visit Charges Inpatient E&M: 00145 Subs Hosp L2
--- NOTE | 2023-06-26 16:46 | PCM.PN.REN ---
Subjective Subjective no new events Objective Data Objective Data Vital Signs: Vital Signs Temp Pulse Resp BP Pulse Ox O2 Del Method O2 Flow Rate 98 F 92 18 125/78 H 89 Nasal Cannula 3 06/26/23 08:41 06/26/23 15:06 06/26/23 15:06 06/26/23 08:41 06/26/23 11:16 06/26/23 14:55 06/26/23 14:55 Oxygen Flow Rate (L/min) 3 Oxygen Delivery Method Nasal Cannula Weight: 107 kg Body Mass Index (BMI) 35.7 Intake & Output: Intake and Output for Last 24 Hours 06/24/23 06/25/23 06/26/23 23:59 23:59 23:59 Intake Total 1360 / 1360 230 / 230 420 / 420 Output Total 100 / 100 4000 / 4000 200 / 200 Balance 1260 / 1260 -3770 / -3770 220 / 220 Lab / Micro Data 06/26/23 06:55 06/26/23 06:55 Labs: Laboratory Results - last 24 hr 06/26/23 06:55: WBC 10.4, RBC 3.41 L, Hgb 9.7 L, Hct 31.5 L, MCV 92.4, MCH 28.4, MCHC 30.8 L, RDW Std Deviation 51.5 H, RDW Coeff of Colleen 15.1 H, Plt Count 252, MPV 11.1, Immature Gran % (Auto) 0.300, Neut % (Auto) 79.7 H, Lymph % (Auto) 9.1 L, [place] % (Auto) 8.2, Eos % (Auto) 2.0, Baso % (Auto) 0.7, Absolute Neuts (auto) 8.3 H, Absolute Lymphs (auto) 0.95, Nucleated RBC % 0, Sodium 136, Potassium 4.1, Chloride 101, Carbon Dioxide 26.0, Anion Gap 9, BUN 54 H, Creatinine 6.12 H, Estim Creat Clear Calc 10.66, Est GFR (MDRD) Af Amer 11 L, Est GFR (MDRD) Non-Af 9 L, BUN/Creatinine Ratio 8.8 L, Glucose 128 H, Calcium 9.6 06/26/23 09:55: Ammonia < 10.0 L Rhythm Strip Rhythm Strip: Sinus Rhythm Rate: 95 Ectopy: PVC(s) Physical Exam Narrative Alert awake oriented x 3 no obvious distress no pallor no icterus no JVD s1s2 no murmurs Diffuse expiratory wheezing on auscultation of the lungs abdomen soft no organomegaly There is 2+ edema of the lower extremities bilaterally no cyanosis Assessment & Plan Assessment/Plan (1) End stage chronic kidney disease: PLAN: Plan Impression/Plan: The patient is a 82-year-old man with ESRD, hypertension, CAD, HFrEF, pulmonary hypertension, hyperlipidemia, GERD, and hypothyroidism. Patient presented to hospital on 06/22/2023 with chest pain and dyspnea. The patient is being treated for acute hypoxic respiratory failure attributed to heart failure exacerbation and volume overload. Nephrology is following for ESRD and dialysis management. ESRD. Patient dialyzes on MWF schedule at [facility] [place]. His outpatient kiln labourer is Dr. Laura. HD as per schedule Acute on chronic hypoxic respiratory failure. Respiratory failure is likely due to volume overload in the setting of HFrEF. The patient also has pulm hypertension. better
[2023-06-26] MEDS: Pravastatin 20 MG Tablet PO (18:18)
[2023-06-26] MEDS: Tamsulosin HCl 0.4 MG Capsule 0.400000000000000022 MG PO (18:18)
[2023-06-26] MEDS: Montelukast 10 MG Tablet PO (21:51)
[2023-06-27] VITALS (16 sets, daily range): BP systolic 102–226; BP diastolic 41–95; PULSE 75–91; RESP 16–18; TEMP 36.1–36.7; O2SAT 92–100; BMI 35.7; BMI 35.4
[2023-06-27] MEDS: busPIRone 5 MG Tablet PO (05:08)
[2023-06-27] MEDS: Heparin Injection (Vial) 5,000 UNIT/ML VIAL 5000 UNIT SC ×2 (05:08→13:17)
[2023-06-27] MEDS: Acetaminophen 325 MG Tablet 650 MG PO ×2 (05:09→13:22)
[2023-06-27] MEDS: Levothyroxine 50 MCG Tablet PO (05:09)
[2023-06-27 07:04] LABS: Absolute Lymphocyte Count 1.01 X10^3/uL (0.83-4.51); Absolute Neutrophil Count 5.6 X10^3/uL (2.0-7.7); Basophil# 0.05 X10^3/uL; Basophil% 0.6 % (0-1); Eosinophil# 0.26 X10^3/uL; Eosinophils% 3.3 % (0-5); Hematocrit 29.4 % (40-54); Hemoglobin 9.1 g/dL (13.0-16.5); Lymphocyte # 1.01 X10^3/ul (0.83-4.51); Mean Corpuscular Hgb 28.4 pg (27.0-32.0); Mean Corpuscular Volume 91.9 fL (80-94); Mean Platelet Vol. 10.8 fl (6.2-12.0); Monocyte# 0.79 X10^3/uL; Monocyte% 10.2 % (0-10); NRBC Flagged by Analyzer 0 % (0-5); Neutrophil # 5.63 X10^3/uL (2.7-7.7); Neutrophil % 72.4 % (47-70); Platelet Count 225 K/mm3 (150-450); RBC Distribution Width CV 15.4 % (11.6-14.6); RBC Distribution Width SD 51.4 fl (35.1-43.9); White Blood Count 7.8 K/mm3 (4.4-11.0)
[2023-06-27 07:35] LABS: Anion Gap 8 (5-15); BUN 64 mg/dL (7-18); BUN/Creat Ratio 9.1 RATIO (10-20); Calcium,Total 9.4 mg/dL (8.5-10.1); Chloride 103 mmol/L (98-107); Creatinine, Serum 7.05 mg/dL (0.70-1.30); EST Glomerular Filtration Rate 8 mL/min (>60); Est Glom Filt Rate - Afr Amer 10 mL/min (>60); Estimated Creatinine Clearance 9.25 ml/min; Glucose 149 mg/dL (74-106); Potassium 4.2 mmol/L (3.5-5.1); Sodium Level 137 mmol/L (136-145)
[2023-06-27] MEDS: LORazepam 2 MG/ML Syringe 1 MG IV (07:52)
[2023-06-27] MEDS: 0.9% Normal Saline 1,000 ML IV.SOLN. 1000 ML OPERA.SITE (08:18)
[2023-06-27] MEDS: PureFlow B 2K Dialysis Soln 1 BAG 6 BAG PF (08:19)
--- NOTE | 2023-06-27 09:06 | CASEMGMT ---
Patient was approved to go to [facility]. SW notified physician and RN. Patient will be discharged today. Anita RUELAS
[2023-06-27] MEDS: Epoetin Alfa epbx 10,000 UNITS/ML 20000 UNIT IV (10:26)
--- NOTE | 2023-06-27 11:31 | PCM.PN.REN ---
Subjective Subjective No new complaints. Breathing looks better overall. Lower extremity edema is essentially resolved. Seen on dialysis today. Cramping, he is likely reaching euvolemic status. Objective Data Objective Data Vital Signs: Vital Signs Temp Pulse Resp BP Pulse Ox O2 Del Method O2 Flow Rate 97.1 F L 86 18 128/95 H 97 Nasal Cannula 2 06/27/23 07:45 06/27/23 11:05 06/27/23 11:05 06/27/23 11:05 06/27/23 11:05 06/27/23 11:05 06/27/23 11:05 Oxygen Flow Rate (L/min) 2 Oxygen Delivery Method Nasal Cannula Weight: 107 kg Body Mass Index (BMI) 35.7 Intake & Output: Intake and Output for Last 24 Hours 06/25/23 06/26/23 06/27/23 23:59 23:59 23:59 Intake Total 230 / 230 840 / 960 220 / 220 Output Total 4000 / 4000 200 / 350 250 / 250 Balance -3770 / -3770 640 / 610 -30 / -30 Lab / Micro Data 06/27/23 06:30 06/27/23 06:30 Labs: Laboratory Results - last 24 hr 06/27/23 06:30: WBC 7.8, RBC 3.20 L, Hgb 9.1 L, Hct 29.4 L, MCV 91.9, MCH 28.4, MCHC 31.0 L, RDW Std Deviation 51.4 H, RDW Coeff of Colleen 15.4 H, Plt Count 225, MPV 10.8, Immature Gran % (Auto) 0.500, Neut % (Auto) 72.4 H, Lymph % (Auto) 13.0 L, [place] % (Auto) 10.2 H, Eos % (Auto) 3.3, Baso % (Auto) 0.6, Absolute Neuts (auto) 5.6, Absolute Lymphs (auto) 1.01, Nucleated RBC % 0, Sodium 137, Potassium 4.2, Chloride 103, Carbon Dioxide 26.0, Anion Gap 8, BUN 64 H, Creatinine 7.05 H, Estim Creat Clear Calc 9.25, Est GFR (MDRD) Af Amer 10 L, Est GFR (MDRD) Non-Af 8 L, BUN/Creatinine Ratio 9.1 L, Glucose 149 H, Calcium 9.4 Rhythm Strip Rhythm Strip: Sinus Rhythm Rate: 95 Ectopy: PVC(s) Physical Exam Narrative Alert awake oriented x 3 no obvious distress no pallor no icterus no JVD s1s2 no murmurs Diffuse expiratory wheezing on auscultation of the lungs abdomen soft no organomegaly There is 2+ edema of the lower extremities bilaterally no cyanosis Assessment & Plan Assessment/Plan (1) End stage chronic kidney disease: PLAN: Plan Impression/Plan: The patient is a 82-year-old man with ESRD, hypertension, CAD, HFrEF, pulmonary hypertension, hyperlipidemia, GERD, and hypothyroidism. Patient presented to hospital on 06/22/2023 with chest pain and dyspnea. The patient is being treated for acute hypoxic respiratory failure attributed to heart failure exacerbation and volume overload. Nephrology is following for ESRD and dialysis management. ESRD. Patient dialyzes on MWF schedule at [facility]. His outpatient heavy duty custodian is Dr. Laura. HD as per schedule Acute on chronic hypoxic respiratory failure. Respiratory failure is likely due to volume overload in the setting of HFrEF. The patient also has pulm hypertension. better Clinically looks better. Lower extremity edema is essentially resolved. Oxygen saturation is okay on nasal cannula. Will maintain Sunday, Sunday, Sunday dialysis.
--- NOTE | 2023-06-27 12:05 | PCM.TXEXTCAR ---
Diet Diet Order/Speech Therapy: 06/25/23 10:32 Diet: Cardiac - Heart Healthy Food consistency:: Soft & Bite Sized Liquid Consistency:: Regular/Thin Is pt able to select menu?: No Diet Comments: Direct Sup / Feeding Assistance - Food/drink ONLY IF FULLY ALERT Routine Orders/Code Status Enema Type: Fleetz Enema Frequency: Daily PRN Suppository Type: Dulcolax 10mg Suppository Frequency: Daily PRN O2 Frequency: PRN Keep PO Greater than or Equal to (%): 90 Wound(s) L knee: Wound Type: Abrasion Therapies Weight Bearing: Weight bearing as tolerated Physical Therapy: Eval and Treat Occupational Therapy: Eval and Treat Problem/Diagnosis (1) End stage chronic kidney disease: Status: Chronic Code(s): N18.6 - End stage renal disease Plan #Fluid overload in the setting of cardiomyopathy and ESRD he did have another session of dialysis on admission. on 2L of oxygen. Chest x-ray showed evidence of fluid overload. Had 2D echo in September 2021 which showed EF of 20%. Repeat 2D echo done showed EF of 30% with mild global hypokinesis of the left ventricle and pulmonary artery systolic pressure of 6 mmHg. indicating moderate pulmonary hypertension. I think his pulmonary hypertension is contributing to his persistent shortness of breath. His EF seems to have improved though his pulmonary hypertension persists. Titrate oxygen to saturation above 90%. Breathing treatments with bronchodilators. for dialysis today #Chest pain chest pain hasn't recurred couldnt tolerate a stress test on Sunday and yesterday chest pain hasnt recurred. I think it is reasonable to cancel the stress test as patient has been quite agitated and this chest pain did not recur after the transient episode. His 2D echo showed mild global hypokinesis of the ventricle with normal in size and EF of 30% with pulmonary artery systolic pressure of 67 mmHg. 2D echo as above. cardiology on board. #Acute encephalopathy with agitation Patient is agitated today. Restraints were taken off this morning. On Seroquel I think this is likely due to hospital-acquired delirium. Conservative measures such as keeping the blinds up during the day to simulate in normal day night cycle. On Seroquel as above. Fall precautions. #ESRD on hemodialysis. Currently in fluid overload as above. For dialysis tomorrow. Has dialysis Wednesdays. Nephrology on board #Hyperlipidemia: On statin #Hypothyroidism: On Synthroid # History of CAD: On aspirin and Plavix as well as statin. #Chronic back pain: On hydromorphone tablet 4 mg every 4 as needed. P.o. Tylenol as needed. #DVT prophylaxis: Heparin CODE STATUS: DNR CCA no intubation Disposition: Awaiting placement. Allergies/Procedures Done in Hospital Allergies doxazosin mesylate [From Cardura] Allergy (Verified 06/22/23 07:59) Hives fosinopril sodium [From Monopril] Allergy (Verified 06/22/23 07:59) Hives lisinopril Allergy (Verified 06/22/23 07:59) Hives morphine Allergy (Verified 06/22/23 07:59) Other agitated Procedures: 2-D Echocardiogram Type of Care/Length of Stay Estimated LOS: Convalescent Care Less Than 30 days Type of Care Needed: Skilled Rehab Potential: Fair Prognosis: Fair Additional Orders/Day of Discharge Day of Discharge: 06/27/23 Dietary and Speech Recommendations Dietitian Recommendations/Changes: continue cardiac diet as tolerated; recommend fluid restriction as indicated. Will monitor PO intake as further established and adjust diet / add ONS as indicated Discharge Plan Admission Admit Date/Time: 06/22/23 12:11 Primary Reason for Your Visit: shortness of breath due to fluid overload Attending Provider: Arline Cruz Primary Care Provider: Germania Penn AUTOMOTIVE PARTS INTERPRETER Consulting Providers: Kirstin Mullins Discharge Orders/Prescriptions Prescriptions: Continued acetaminophen 325 mg capsule 650 mg PO TID loratadine 10 mg tablet 10 mg PO DAILY levothyroxine 50 mcg tablet 50 mcg PO 1200 tamsulosin [Flomax] 0.4 mg capsule 0.4 mg PO 1700 buspirone 5 mg tablet 5 mg PO BID Rx Instructions: TAKE 1 TABLET BY MOUTH TWICE DAILY AT 5AM AND AT BEDTIME omega 1-jbz-wro-fish oil [Fish Oil] 60-90-500 mg capsule 1 cap PO BID pantoprazole 40 mg tablet,delayed release (DR/EC) 40 mg PO 1200 guaifenesin [Mucinex] 600 mg tablet extended release 12hr 600 mg PO BID Patient Comments: [place] [employer] fluticasone propionate [Allergy Relief (fluticasone)] 50 mcg/actuation spray,suspension 1 spray intranasal 1200 Rx Instructions: administer into each nostril montelukast 10 mg tablet 10 mg PO QHS finasteride 5 MG tablet 5 mg PO 1200 nitroglycerin 0.4 MG tablet 0.4 mg SUBLINGUAL Q5M PRN (Reason: Chest Pain) amlodipine 5 mg tablet 5 mg PO DAILY aspirin 81 mg tablet,delayed release (DR/EC) 81 mg PO 1200 hydromorphone 4 mg tablet 4 mg PO Q4H PRN (Reason: PAIN ) torsemide 20 mg tablet 20 mg PO DAILY PreserVision AREDS-2 250-90-40-1 mg capsule 1 tab PO BID Thera-M 9 mg iron-400 mcg tablet 1 tab PO 1200 clopidogrel 75 MG tablet 75 mg PO 1200 pravastatin 20 mg tablet 20 mg PO 1700 Discontinued cefdinir 300 mg Capsule 300 mg PO DAILY 2 Days Qty: 2 0RF Referrals / Follow Up: Kirstin Mullins MD [Med Staff - Consulting] - Within 2 Weeks Germania Pnen AUTOMOTIVE PARTS INTERPRETER, AUTOMOTIVE PARTS INTERPRETER-C [Primary Care Provider] - Within 2 Weeks Disposition Disposition (needs filled in before D/C Order can be placed): [facility] Facility
--- NOTE | 2023-06-27 12:07 | DS.PCM_ITS ---
Providers Date of Admission: 06/22/23 Date of Discharge: 06/27/23 Primary Care Physician: Germania Penn, ARUN-Yara Consultations 06/22/23 12:53 Consult: Nephrology Routine Consulting Provider: Kirstin Mullins Reason for Consult: ESRD, had incomplete dialysis today EMERGENT Consult: No MD Notified: Yes Date Notified: 06/22/23 Time Notified: 12:21 Method of Notification: Verbal Reason For Visit: FLUID OVELOAD DUE TO HEART FAILURE IN THE SETTING Diagnosis Discharge Diagnosis (1) End stage chronic kidney disease: Status: Chronic Code(s): N18.6 - End stage renal disease Plan #Fluid overload in the setting of cardiomyopathy and ESRD * he did have another session of dialysis on admission. * on 2L of oxygen. * Chest x-ray showed evidence of fluid overload. * Had 2D echo in September 2021 which showed EF of 20%. Repeat 2D echo done showed EF of 30% with mild global hypokinesis of the left ventricle and pulmonary artery systolic pressure of 6 mmHg. indicating moderate pulmonary hypertension. * I think his pulmonary hypertension is contributing to his persistent shortness of breath. * His EF seems to have improved though his pulmonary hypertension persists. * Titrate oxygen to saturation above 90%. Breathing treatments with bronchodilators. * for dialysis today * #Chest pain * chest pain hasn't recurred * couldnt tolerate a stress test on Sunday and yesterday * chest pain hasnt recurred. I think it is reasonable to cancel the stress test as patient has been quite agitated and this chest pain did not recur after the transient episode. His 2D echo showed mild global hypokinesis of the ventricle with normal in size and EF of 30% with pulmonary artery systolic pressure of 67 mmHg. * 2D echo as above. * cardiology on board. * #Acute encephalopathy with agitation * Patient is agitated today. Restraints were taken off this morning. On Seroqu el * I think this is likely due to hospital-acquired delirium. Conservative measures such as keeping the blinds up during the day to simulate in normal day night cycle. On Seroquel as above. * Fall precautions. * #ESRD on hemodialysis. Currently in fluid overload as above. For dialysis tomorrow. Has dialysis Wednesdays. Nephrology on board #Hyperlipidemia: On statin #Hypothyroidism: On Synthroid # History of CAD: On aspirin and Plavix as well as statin. #Chronic back pain: On hydromorphone tablet 4 mg every 4 as needed. P.o. Tylenol as needed. #DVT prophylaxis: Heparin CODE STATUS: DNR CCA no intubation Disposition: Awaiting placement. * Medications at Discharge Home Medications finasteride 5 mg tablet 5 mg PO 1200 PROSTATE 04/01/14 nitroglycerin 0.4 mg sublingual tablet 0.4 mg sublingual Q5M PRN Chest Pain 02/01/15 acetaminophen 325 mg capsule 650 mg PO TID pain/fever 02/20/18 levothyroxine 50 mcg tablet 50 mcg PO 1200 THYROID 05/02/18 loratadine 10 mg tablet 10 mg PO DAILY ALLERGIES 10/03/18 tamsulosin 0.4 mg capsule (Flomax) 0.4 mg PO 170 PROSTATE 04/02/19 buspirone 5 mg tablet 5 mg PO BID ANXIETY 12/25/19 fluticasone propionate 50 mcg/actuation nasal spray,suspension (Allergy Relief (fluticasone)) 1 spray intranasal 1200 NASAL CONGESTION 05/05/22 guaifenesin 600 mg tablet, extended release 12 hr (Mucinex) 600 mg PO BID MUCUS RELIEF 05/05/22 montelukast 10 mg tablet 10 mg PO QHS ALLERGIES 05/05/22 omega 8-wct-pdk-fish oil 60 mg-90 mg-500 mg capsule (Fish Oil) 1 cap PO BID SUPPLEMENT 05/05/22 pantoprazole 40 mg tablet,delayed release 40 mg PO 1200 ACID REFLUX 05/05/22 amlodipine 5 mg tablet 5 mg PO DAILY BLOOD PRESSURE 05/07/23 aspirin 81 mg tablet,delayed release 81 mg PO 1200 HEART HEALTH 05/07/23 clopidogrel 75 mg tablet 75 mg PO 1200 BLOOD THINNER 05/07/23 hydromorphone 4 mg tablet 4 mg PO Q4H PRN PAIN 05/07/23 multivitamin-iron 9 mg-folic acid 400 mcg-calcium and minerals tablet (Thera-M) 1 tab PO 1200 SUPPLEMENT 05/07/23 pravastatin 20 mg tablet 20 mg PO 1700 CHOLESTEROL 05/07/23 torsemide 20 mg tablet 20 mg PO DAILY EDEMA 05/07/23 vit C 250 mg-vit E 90 mg-zinc 40 mg-copper 1 xn-kdczpt-yhopsx capsule (PreserVision AREDS-2) 1 tab PO BID SUPPLEMENT 05/07/23 Hospital Course Operations None Procedures 2-D Echocardiogram Summary of Care Provided Minutes Spent on Discharge: 55 Hospital Course: ARIANNA GUILLERMO, is a 82 M with a PMH as outlined who presents ia the ED on 06/22/2023 with a complaint of shortness of breath. He has a PMH which includes ESRD on dialysis. He went for dialysis today and was feeling short of breath. He said the shortness of breath had been going on for about a month prior to admission. He denied chest pain, palpitations, dizziness, nausea, vomiting or any other symptoms. Review of systems was otherwise negative. Vitals in the ED were temp of 97F,. [place] of 94, BP of 161/81 nd RR of 19. He was saturating at 95% on 2L of oxygen. CBC showd hb of 10.4, wbc of 8.8 and platelets of 226. Chemistry showed sodium of 140, potassium of 3.7 and Cr of 5.31 with calcium of 10.5. and initial troponin of 84. CXR showed evidence of CH with blunting of both costophrenic angles worse on the right side and evidence of atelectasis and/or infiltrates at hte lung bases worse at hte right lung base as well as in the left midlung. He is being admitted to be managed for hypoxia in the setting of ESRD likely due to fluid overload. Nephrology was consulted and patient had dialysis. Hospital course was complicated by patient developing chest pain. Plan was for him to have a stress test but patient was unable to tolerate having the stress test as he got very agitated and combative both times the stress test was attempted. Hospital course was also complete placated by acute delirium with encephalopathy. Patient required restraints as he became very combative. However he subsequently calmed down and was taken out of restraints and did not receive any more Haldol. His shortness of breath did improve and he felt much better. He was discharged to custodial facility on 06/27/2023. He is to follow-up with his PCP and nephrology within 1 to 2 week s. Patient seen and examined prior to discharge. He had no complaints and had an uneventful night. Review of systems otherwise negative. Labs and vitals reviewed. Home medication reviewed and reconciled. Physical Exam Const alert, oriented x3 and no apparent distress General Appearance: cooperative, comfortable and well developed HEENT normocephalic, head/scalp atraumatic, hearing grossly normal bilaterally, moist oral mucous membranes and oropharynx normal Mouth: oral and palatal mucosa normal Eyes PERRL and EOMs intact bilaterally Neck no lymphadenopathy and supple Lymph Lymphatic: no lymphadenopathy noted and no lymphedema noted Resp Resp Narrative: moderately diminished breath sounds bilaterally, mild wheezing, no crackles. on 2L of oxygen. Cardio regular rate, regular rhythm, S1 normal heart sound, S2 normal heart sound and no murmurs GI normal to inspection, nondistended, normoactive bowel sounds, soft to palpation, non-tender and non-distended Extremity normal capillary refill Extremity Narrative: bilateral 1+ lower extremity edema. AV fistula in LUE with good thrill General Extremity: no tenderness to palpation of joints or extremities Skin Skin Narrative: stasis dermatitis on lower extremities Neuro CN's II-XII intact bilaterally and no focal motor deficits Motor Exam: general weakness Psych Psych Narrative: more alert and communicative today. Flat affect Weight / BMI Weight Weight: 233 lb 11.04 oz Body Mass Index (BMI) 35.4 ABG / Lab / Microbiology Data 06/27/23 06:30 06/27/23 06:30 Laboratory: Laboratory Results - last 24 hr 06/27/23 06:30: WBC 7.8, RBC 3.20 L, Hgb 9.1 L, Hct 29.4 L, MCV 91.9, MCH 28.4, MCHC 31.0 L, RDW Std Deviation 51.4 H, RDW Coeff of Colleen 15.4 H, Plt Count 225, MPV 10.8, Immature Gran % (Auto) 0.500, Neut % (Auto) 72.4 H, Lymph % (Auto) 13.0 L, [place] % (Auto) 10.2 H, Eos % (Auto) 3.3, Baso % (Auto) 0.6, Absolute [place] ts (auto) 5.6, Absolute Lymphs (auto) 1.01, Nucleated RBC % 0, Sodium 137, Potassium 4.2, Chloride 103, Carbon Dioxide 26.0, Anion Gap 8, BUN 64 H, Creatinine 7.05 H, Estim Creat Clear Calc 9.25, Est GFR (MDRD) Af Amer 10 L, Est GFR (MDRD) Non-Af 8 L, BUN/Creatinine Ratio 9.1 L, Glucose 149 H, Calcium 9.4 Microbiology: Microbiology 06/27/23 11:22 Nasal Secretion SARS-CoV-2 Antigen (Rapid) - Final D/C Instructions Discharge Activity: Return to Normal Activity Meaningful Use Info Meaningful Use Diagnoses (Choose all that apply): None applicable Discharge Plan Admission Admit Date/Time: 06/22/23 12:11 Primary Reason for Your Visit: shortness of breath due to fluid overload Attending Provider: Arline Cruz Primary Care Provider: Germania Penn DOWEL SETTING MACHINE OPERATOR Consulting Providers: Kirstin Mullins Discharge Orders/Prescriptions Prescriptions: Continued acetaminophen 325 mg capsule 650 mg PO TID loratadine 10 mg tablet 10 mg PO DAILY levothyroxine 50 mcg tablet 50 mcg PO 1200 tamsulosin [Flomax] 0.4 mg capsule 0.4 mg PO 1700 buspirone 5 mg tablet 5 mg PO BID Rx Instructions: TAKE 1 TABLET BY MOUTH TWICE DAILY AT 5AM AND AT BEDTIME omega 2-yhj-bos-fish oil [Fish Oil] 60-90-500 mg capsule 1 cap PO BID pantoprazole 40 mg tablet,delayed release (DR/EC) 40 mg PO 1200 guaifenesin [Mucinex] 600 mg tablet extended release 12hr 600 mg PO BID Patient Comments: [place] [employer] fluticasone propionate [Allergy Relief (fluticasone)] 50 mcg/actuation spray,suspension 1 spray intranasal 1200 Rx Instructions: administer into each nostril montelukast 10 mg tablet 10 mg PO QHS finasteride 5 MG tablet 5 mg PO 1200 nitroglycerin 0.4 MG tablet 0.4 mg SUBLINGUAL Q5M PRN (Reason: Chest Pain) amlodipine 5 mg tablet 5 mg PO DAILY aspirin 81 mg tablet,delayed release (DR/EC) 81 mg PO 1200 hydromorphone 4 mg tablet 4 mg PO Q4H PRN (Reason: PAIN ) torsemide 20 mg tablet 20 mg PO DAILY PreserVision AREDS-2 250-90-40-1 mg capsule 1 tab PO BID Thera-M 9 mg iron-400 mcg tablet 1 tab PO 1200 clopidogrel 75 MG tablet 75 mg PO 1200 pravastatin 20 mg tablet 20 mg PO 1700 Discontinued cefdinir 300 mg Capsule 300 mg PO DAILY 2 Days Qty: 2 0RF Referrals / Follow Up: Kirstin Mullins MD [Med Staff - Consulting] - Within 2 Weeks Germania Penn DOWEL SETTING MACHINE OPERATOR, DOWEL SETTING MACHINE OPERATOR-C [Primary Care Provider] - Within 2 Weeks Disposition Disposition (needs filled in before D/C Order can be placed): Custodial Facility Charges/Coding Visit Charges Inpatient E&M: 65037 Disch Hosp >30min
[2023-06-27] MEDS: QUEtiapine 25 MG Tablet PO (13:17)
[2023-06-27] MEDS: Finasteride 5 MG Tablet PO (13:17)
[2023-06-27] MEDS: Loratadine 10 MG Tablet PO (13:18)
[2023-06-27] MEDS: Aspirin E.C. 81 MG Tablet PO (13:18)
[2023-06-27] MEDS: Clopidogrel Bisulfate 75 MG Tablet PO (13:18)
[2023-06-27] MEDS: amLODIPine 5 MG Tablet PO (13:18)
[2023-06-27] MEDS: Multivitamins,Ther W-Minerals Tablet 1 TABLET PO (13:18)
[2023-06-27] MEDS: guaiFENesin 600 MG Tablet PO (13:18)
[2023-06-27] MEDS: Pantoprazole Sodium 40 MG Tablet PO (13:18)
--- NOTE | 2023-06-27 13:27 | CASEMGMT ---
Patient is ready for discharge to [facility]. SW completed a 7000 in the [facility]. RN spoke with patient's son earlier today notifying him patient will go today. Await orders. Plan: d/c to [facility] under skilled level of care on a convalescent stay. Physicians will transport patient via cot. Anita RUELAS
[2023-06-27] MEDS: Fluticasone 0.05% 1 SPRAY NASAL.SRY NASAL (13:31)
--- NOTE | 2023-06-27 13:38 | CASEMGMT ---
Garfield Townsend was asking if patient is in restraints. TANO let them know the restraints were removed Tu at 745a. Garfield Townsend then asked why patient was in restraints. TANO explained patient's agitation, pulling at things, and on Sunday per handoff was combative. Anita Brito TEXTILE CLOTHING AND FOOTWEAR MECHANIC SURAJ
--- NOTE | 2023-06-27 15:20 | CASEMGMT ---
Addendum entered by Stephanie Solo 06/28/23 08:46: Correction to earlier note; patient discharged to [facility]. Stephanie Solo, Discharge Planning Asst. Original Note: Discharge Planning Discharge orders, signed med list, covid results, and transport time sent to [facility] via [facility]. Physicians will transport patient by cot at 5p. Nursing, SW, and patient updated. A VM was left for patients sonAlok. Stephanie Solo, Discharge Planning Asst.
--- NOTE | 2023-06-27 16:37 | NURSING ---
Report called to lorna, nursing supervisor feed house RN at [phone].
[2023-06-27] MEDS: Pravastatin 20 MG Tablet PO (17:32)
[2023-06-27] MEDS: Tamsulosin HCl 0.4 MG Capsule 0.400000000000000022 MG PO (17:32)
[2023-06-27] MEDS: Multivitamin (Healthy Eyes) Capsule 1 CAP PO (17:32)
== END 2023-06-27 18:29 | disposition skilled nursing facility (03) | DRG 291 ==
LOC: ED 11:56 → PCU 12:15
PROVIDERS: Admitting Provider Student in an Organized Health Care Education/Training Program; Emergency Provider Emergency Medicine; PCP Nurse Practitioner Adult Health; Visit Provider Student in an Organized Health Care Education/Training Program
DX: I13.2 Hypertensive heart and chronic kidney disease with heart failure and with stage 5 chronic kidney disease, or end stage renal disease (principal); J96.21 Acute and chronic respiratory failure with hypoxia; N18.6 End stage renal disease; G93.40 Encephalopathy, unspecified; F05 Delirium due to known physiological condition; I27.20 Pulmonary hypertension, unspecified; I50.42 Chronic combined systolic (congestive) and diastolic (congestive) heart failure; I42.9 Cardiomyopathy, unspecified; Z99.2 Dependence on renal dialysis; E03.9 Hypothyroidism, unspecified; E87.70 Fluid overload, unspecified; E78.5 Hyperlipidemia, unspecified; I25.10 Atherosclerotic heart disease of native coronary artery without angina pectoris; K21.9 Gastro-esophageal reflux disease without esophagitis; M54.9 Dorsalgia, unspecified; Z66 Do not resuscitate; Z79.891 Long term (current) use of opiate analgesic; Z79.82 Long term (current) use of aspirin; Z79.02 Long term (current) use of antithrombotics/antiplatelets; Z87.891 Personal history of nicotine dependence; R07.9 Chest pain, unspecified; G89.29 Other chronic pain; R45.1 Restlessness and agitation
CPT/HCPCS: 36415; 71045; 80048; 82140; 84484; 85025; 87426; 90937; 92610; 93005; 93306; 94640; 97162; 97165; 97530; 97535; 99285; J7030; A4216; G0257; J2785; Q5106